=== PATIENT | female | born 1990 | race Caucasian/White ===

== ENCOUNTER 2024-06-30 07:46 | Outpatient (RCR) | payer OTHER, SELFPAY ==
[2024-06-30 09:30] VITALS: BP 118/79; PULSE 93; TEMP 36.6; O2SAT 97
[2024-06-30] MEDS: RHO(D) IMMUNE GLOBULIN 1,500 UNIT SYRINGE 1500 UNIT IM (10:23)
== END 2024-07-15 23:59 | disposition home or self-care (01) ==
LOC: INF 07:46
PROVIDERS: PCP Midwife; Visit Provider Midwife
DX: O26.893 Other specified pregnancy related conditions, third trimester (principal); Z67.91 Unspecified blood type, Rh negative; Z3A.00 Weeks of gestation of pregnancy not specified
CPT/HCPCS: 36415; 86850; 86900; 86901; 96372; J2791

== ENCOUNTER 2024-07-07 09:53 | Outpatient (OUT) | payer OTHER, SELFPAY ==
--- NOTE | 2024-07-07 09:57 | US_ITS ---
[address] [address] Patient Name: ALTON LILLY MRN: [id number] date: 1990 Sex: F Assigned Patient Location: US Current Patient Location: Accession/Order Number: [id number] Exam Date: 07/07/2024 10:20 Report Date: 07/07/2024 12:49 At the request of: MAULIK KUMAR Procedure: US OB growth EXAMINATION: US OB growth HISTORY: Related Condition COMPARISON: No relevant comparison available. FINDINGS: Heart Rate: 136.36 bpm Amniotic Fluid Volume: 12.9 cm, largest fluid pocket 3.8 cm Number: 1 Position: Cephalic presentation, longitudinal lie BIOMETRY: BPD: 7.54 cm; 30 weeks 2 days; 41.30 % HC: 27.75 cm; 30 weeks 2 days; 20.70 % AC: 25.71 cm; 29 weeks 6 days; 36.70 % FL: 5.50 cm; 29 weeks 0 days; 10.90 % EFW: 1434.76 g; 22.60 %, 3 lbs. 3 oz. FL/AC: 21.40 FL/BPD: 72.95 HC/AC: 1.08 GESTATIONAL AGE: Age by EDC: 30 weeks 1 day LD by EDC: 2024-09-14 Age by US: 29 weeks 6 days LD by US: 2024-09-16 US/US OB growth IMPRESSION: Normal interval growth Electronically authenticated by: MALIKA PLUMMER Date: 07/07/2024 12:49
== END 2024-07-07 09:54 | disposition home or self-care (01) ==
LOC: US 09:53
PROVIDERS: PCP Midwife; Visit Provider Midwife
DX: O26.93 Pregnancy related conditions, unspecified, third trimester (principal); Z3A.30 30 weeks gestation of pregnancy
CPT/HCPCS: 76816

== ENCOUNTER 2024-07-27 18:31 | Observation (INO) | payer OTHER, SELFPAY ==
--- OUTSIDE RECORDS SUMMARY | 2024-07-27 17:52 | XMS_ITS | CCD ---
Author Organization [facility] Care Team Providers Care Electronic Publisher Name Role Phone SONU GONZALEZ Unavailable Unavailable GONZALEZSONU K Unavailable Unavailable GONZALEZSONU K Unavailable Unavailable GONZALEZ SONU K Unavailable Unavailable FLORO, ARINA Primary Care Unavailable MISC, DOCTOR Attending Unavailable MISC, DOCTOR Consulting Unavailable MISC, DOCTOR Admitting Unavailable Unavailable Primary Care Provider Unavailabl e HOTELLINGRODO Admitting Unavailable MATT LIGHT Attending Unavailable Unavailable Primary Care Provider Unavailabl e FLORO, MAULIK L Referring Unavailable FLORO, MAULIK L Attending Unavailable FLORO, MAULIK L Referring Unavailable FLORO, MAULIK L Attending Unavailable FLORO, MAULIK L Attending Unavailable FLORO, MAULIK L Attending Unavailable FLORO, MAULIK L Referring Unavailable FLORO, MAULIK L Attending Unavailable FLORO, MAULIK L Referring Unavailable FLORO, MAULIK L Attending Unavailable FLORO, MAULIK L Attending Unavailable Allergies Allergy Classification Reported Allergen(s) Allergy Type Date of Onset Reaction(s) Facility (1 source) Seasonal allergy Propensity to adverse reactions to substance 12-07-2021 [facility] Medications Current Medications Medication Drug Class(es) Dates Sig (Normalized) Sig (Original) acetaminophen 500 mg oral tablet (2 sources) Start: 12-07-2021 acetaminophen (TYLENOL) tablet 1,000 mg Start: 12-07-2021 End: 12-07-2021 acetaminophen (TYLENOL) tabl et 650 mg calcium chloride 0.0014 meq/ml / potassium chloride 0.004 meq/ml / sodium chloride 0.103 meq/ml / sodium lactate 0.028 meq/ml injectable solution (4 sources) Start: 12-07-2021 End: 12-07-2021 lactated ringers infusion 1 ml carboprost 0.25 mg/ml injection (1 source) Prostaglandin Analog Start: 12-07-2021 carboprost (HEMABATE) injection 250 mcg 1 ml diphenhydrAMINE hydrochloride 50 mg/ml cartridge (1 source) Histamine-1 Receptor Antagonist Start: 12-07-2021 diphenhydrAMINE (BENADRYL) injection 25 mg docusate sodium 100 mg oral capsule (2 sources) Start: 12-08-2021 take 1 capsule by mouth twice daily docusate sodium (COLACE) 100 mg capsule Take 1 capsule by mouth 2 times daily 60 capsule 0 12/10/2021 Active docusate sodium 50 mg / sennosides, assisted 8.6 mg oral tablet (1 source) Start: 12-07-2021 sennosides-docusate sodium (SENOKOT-S) 8.6-50 MG tablet 1 tablet 0.4 ml enoxaparin sodium 100 mg/ml prefilled syringe (1 source) Low Molecular Weight Heparin Start: 12-08-2021 enoxaparin (LOVENOX) injection 40 mg famotidine 20 mg oral tablet (17 sources) Histamine-2 Receptor Antagonist Start: 07-21-2024 End: 07-21-2025 take 2 tablets by mouth in the morning famotidine (Pepcid) 20 MG tablet Indications: Stomach pain Take 2 tablets (40 mg) by mouth in the morning and 2 tablets (40 mg) before bedtime. 90 tablet 3 07/21/2024 07/21/2025 Active Start: 03-19-2024 End: 03-19-2025 take 1 tablet by mouth in the morning famotidine (Pepcid) 20 MG tablet Indications: Stomach pain Take 1 tablet (20 mg) by mouth in the morning and 1 tablet (20 mg) before bedtime. 90 tablet 3 03/19/2024 03/19/2025 Active End: 12-07-2021 take 1 tablet by mouth once daily as needed famotidine (PEPCID) 20 MG tablet Take 20 mg by mouth nightly as needed 0 12/07/2021 Discontinued ibuprofen 800 mg oral tablet (3 sources) Nonsteroidal Anti-inflammatory Drug Start: 12-09-2021 take 1 tablet by mouth every eight hours as needed for pain ibuprofen (ADVIL;MOTRIN) 800 MG tablet Take 1 tablet by mouth every 8 hours as needed for Pain With food 50 tablet 1 12/10/2021 Active Start: 03-28-2017 End: 12-07-2021 take 1 tablet by mouth every six hours as needed for pain ibuprofen (ADVIL;MOTRIN) 800 MG tablet Take 1 tablet by mouth every 6 hours as needed for Pain 40 tablet 3 03/28/2017 12/07/2021 Discontinued lanolin 1000 mg/ml topical cream (1 source) Start: 12-07-2021 lansinoh lanolin ointment 1 ml methylergonovine maleate 0.2 mg/ml injection (1 source) Ergot Derivative Start: 12-07-2021 methylergonovine (METHERGINE) injection 200 mcg miSOPROStol 0.1 mg oral tablet (1 source) Prostaglandin E1 Analog Start: 12-07-2021 miSOPROStol (CYTOTEC) tablet 800 mcg 1 ml nalbuphine hydrochloride 10 mg/ml injection (1 source) Opioid Agonist/Antagonist Start: 12-07-2021 nalbuphine (NUBAIN) injection 10 mg 1 ml naloxone hydrochloride 0.4 mg/ml injection (1 source) Opioid Antagonist Start: 12-07-2021 naloxone (NARCAN) injection 0.4 mg 2 ml ondansetron 2 mg/ml injection (1 source) Serotonin-3 Receptor Antagonist Start: 12-07-2021 ondansetron (ZOFRAN) injection 4 mg oxyCODONE (1 source) Opioid Agonist Start: 12-07-2021 oxyCODONE (ROXICODONE) immediate release tablet 5 mg MV & Min w/FA-DHA ( Gummies) 0.18-25 MG chewable tablet (17 sources) MV & Mi n w/FA-DHA ( Gummies) 0.18-25 MG chewable tablet Chew Active vitamin 27-1 MG tablet 1 tablet (1 source) Start: 12-08-2021 vitamin 27-1 MG tablet 1 tablet sertraline 25 mg oral tablet (3 sources) Serotonin Reuptake Inhibitor Start: 12-08-2021 End: 12-07-2021 take 1 tablet by mouth once daily sertraline (ZOLOFT) 25 MG tablet Take 1 tablet by mouth daily 30 tablet 0 12/10/2021 Active simethicone 80 mg chewable tablet (1 source) Start: 12-07-2021 simethicone (MYLICON) chewable tablet 80 mg 5 ml sodium chloride 9 mg/ml injection (3 sources) Start: 12-07-2021 0.9 % sodium chloride infusion Start: 12-07-2021 sodium chlorid e flush 0.9 % injection 5-40 mL Completed/Discontinued Medications Medication Drug Class(es) Dates Sig (Normalized) Sig (Original) aspirin 81 mg delayed release oral tablet (1 source) Platelet Aggregation Inhibitor, Nonsteroidal Anti-inflammatory Drug End: 12-07-2021 take 1 tablet by mouth at bedtime aspirin 81 MG EC tablet Take 81 mg by mouth at bedtime 0 12/07/2021 Discontinued cefOXitin (MEFOXIN) 2000 mg in dextrose 5% 50 mL (mini-bag) (1 source) Start: 12-07-2021 End: 12-07-2021 cefOXitin (MEFOXIN) 2000 mg in dextrose 5% 50 mL (mini-bag) citric acid 66.8 mg/ml / sodium citrate 100 mg/ml oral solution (1 source) Calculi Dissolution Agent, Anti-coagulant Start: 12-07-2021 End: 12-07-2021 citric acid-sodium citrate (BICITRA) solution 30 mL Start: 12-07-2021 End: 12-07-2021 citric acid-sodium citrate ( BICITRA) solution 30 mL 50 ml clindamycin 18 mg/ml injection (1 source) Lincosamide Antibacterial Start: 12-08-2021 End: 12-08-2021 clindamycin (CLEOCIN) 900 mg in dextrose 5 % 50 mL IVPB Ethinyl Estradiol / Ferrous fumarate / Norethindrone (1 source) Estrogen Start: 06-05-2017 End: 12-07-2021 take 1 tablet by mouth once daily Norethin Piero-Eth Estrad-FE 1-20 MG-MCG(24) TABS Indications: Dysmenorrhea , Pelvic pain in female Take 1 tablet by mouth daily 28 tablet 11 06/05/2017 12/07/2021 Discontinued famotidine (PEPCID) 20 mg in sodium chloride (PF) 10 mL injection (1 source) Start: 12-07-2021 End: 12-07-2021 famotidine (PEPCID) 20 mg in sodium chloride (PF) 10 mL injection ferrous sulfate 325 mg oral tablet (1 source) End: 12-07-2021 take 1 tablet by mouth once daily at breakfast, then take 1 tablet by mouth every other day ferrous sulfate (IRON 325) 325 (65 Fe) MG tablet Take 325 mg by mouth daily (with breakfast) Pt takes more every other day due to how it makes her feel 0 12/07/2021 Discontinued furosemide 20 mg oral tablet (1 source) Loop Diuretic Start: 12-10-2021 End: 12-10-2021 furosemide (LASIX) tablet 20 mg Start: 12-10-2021 End: 12-10-2021 furosemide (LASIX) tablet 20 mg gentamicin (GARAMYCIN) 410.4 mg in dextrose 5 % 250 mL IVPB (1 source) Start: 12-08-2021 End: 12-08-2021 gentamicin (GARAMYCIN) 410.4 mg in dextrose 5 % 250 mL IVPB 1 ml ketorolac tromethamine 30 mg/ml cartridge (1 source) Nonsteroidal Anti-inflammatory Drug, Cyclooxygenase Inhibitor Start: 12-07-2021 End: 12-09-2021 ketorolac (TORADOL) injection 30 mg 2 ml metoclopramide 5 mg/ml prefilled syringe (1 source) Dopamine-2 Receptor Antagonist Start: 12-07-2021 End: 12-07-2021 metoclopramide (REGLAN) injection 10 mg Start: 12-07-2021 End: 12-07-2021 metoclopramide (REGLAN) inje ction 10 mg oxytocin (PITOCIN) 30 units in 500 mL infusion (1 source) Start: 12-07-2021 End: 12-07-2021 oxytocin (PITOCIN) 30 units in 500 mL infusion 200 ml ropivacaine hydrochloride 2 mg/ml injection (1 source) Amide Local Anesthetic Start: 12-07-2021 End: 12-07-2021 12 mL/hr, Epidural, CONTINUOUS, Starting on Sun12/07/21 at 1430, Until Sun12/07/21 at 2334 Until delivery. Labor and Delivery 1 ml terbutaline sulfate 1 mg/ml injection (2 sources) Start: 12-07-2021 End: 12-07-2021 terbutaline (BRETHINE) injection 0.25 mg Start: 12-07-2021 End: 12-07-2021 terbutaline (BRETHINE) 1 MG/ ML injection Problems Active Problems Problem Classification Problem Date Documented Da te Episodic/Chronic Early or threatened labor (2 sources) Uterine contractions present; Translations: [False labor, unspecified] Onset: 12-07-2021 Resolved: 12-10-2021 Episodic distress and abnormal forces of labor (2 sources) Liveborn with labor distress; Translations: [Labor and delivery complicated by stress, unspecified] Onset: 12-07-2021 Resolved: 12-10-2021 Episodic Menstrual disorders (3 sources) Irregular menstruation, unspecified; Translations: [Dysmenorrhea, unspecified] Onset: 03-28-2017 03-28-2017 Chronic Other complications of ; puerperium affecting management of mother (2 sources) delivery - delivered; Translations: [Encounter for delivery without indication] Onset: 12-10-2021 Episodic Other nervous system disorders (2 sources) Choroid plexus cyst; 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 Other and delivery including normal (14 sources) Third trimester ; Translations: [Encounter for supervision of normal , unspecified, third trimester] Onset: 12-07-2021 Resolved: 12-10-2021 Episodic Unclassified (1 source) Unspecified dyspareunia; Translations: [Unspecified dyspareunia] Onset: 04-06-2017 Viral infection (1 source) COVID-19; Translations: [COVID-19] Onset: 06-28-2021 Past or Other Problems Problem Classification Problem Date Documented Date Episodic/Chronic Abdominal pain (3 sources) Right lower quadrant pain; Translations: [Stomach ache] Onset: 04-06-2017 03-19-2024 Episodic Other complications of (4 sources) Other viral diseases complicating , second trimester; Translations: [OTH VIRAL DZ COMP PREG SECOND TRI] Onset: 06-24-2021 Episodic Other complications of (2 sources) Finding related to ; Translations: [ related conditions, unspecified, second trimester] 03-19-2024 Episodic Residual codes; unclassified (1 source) 16 weeks gestation of ; Translations: [16 WEEKS GESTATION OF ] Onset: 06-28-2021 Episodic Unclassified (3 sources) Unsatisfactory cytologic smear of cervix; Translations: [Increased prolactin level] Onset: 04-10-2017 04-10-2017 Episodic Results Test Name Value Interpretation Reference Range Facility US for pregnancyon TITLE OF EXAM: OB Ultrasound: REASON FOR EXAM: Choroid plexus cyst. TECHNIQUE: Grayscale and color Doppler imaging is performed. Measurements: heart rate: 143 bpm KUNAL: 14.0 cm (9.7-22.2) BPD: 6.2 cm HC: 23.3 cm GA for sonogram: 25.3 wk (23.1-27.4) Cervix length: 4.7 cm LD: 09/14/2024 CLINICAL SUMMARY: A single intrauterine is noted in cephalic presentation. heart is observed with a heart rate of 143 bpm. Placenta is located fundally. Tech notes: anechoic area seen to the left of the Uterus 3.6 x 2.2 x 2.5 cm. Simple appearing cyst. A choroid plexus cyst is not demonstrated on this exam. *This report is generated using voice recognition reporting ([employer]). On occasion [employer] erroneously drops words from the report or replaces the spoken word with similar sounding words. Please call with any questions/concerns regarding this report.* Dictated and transcribed 06/05/24/dpd This report has been electronically signed and approved by the interpreting radiologist. IMAGING Yordan Duran MD - 06/06/2024 TITLE OF EXAM: OB Ultrasound: REASON FOR EXAM: Choroid plexus cyst. TECHNIQUE: Grayscale and color Doppler imaging is performed. Measurements: heart rate: 143 bpm KUNAL: 14.0 cm (9.7-22.2) BPD: 6.2 cm HC: 23.3 cm GA for sonogram: 25.3 wk (23.1-27.4) Cervix length: 4.7 cm LD: 09/14/2024 CLINICAL SUMMARY: A single intrauterine is noted in cephalic presentation. heart is observed with a heart rate of 143 bpm. Placenta is located fundally. Tech notes: anechoic area seen to the left of the Uterus 3.6 x 2.2 x 2.5 cm. Simple appearing cyst. A choroid plexus cyst is not demonstrated on this exam. *This report is generated using voice recognition reporting ([employer]). On occasion [employer] erroneously drops words from the report or replaces the spoken word with similar sounding words. Please call with any questions/concerns regarding this report.* Dictated and transcribed 06/05/24dpd This report has been electronically signed and approved by the interpreting radiologist. [facility] for pregnancyOrdered By: Yordan Duran on 06-06-2024 [facility] Work Phone: US OB LIMITED 1+ FETUSESon 1 08-05-2023 US OB LIMITED 1+ FETUSES TITLE OF EXAM: OB Ultrasound: REASON FOR EXAM: Choroid plexus cyst. TECHNIQUE: Grayscale and color Doppler imaging is performed. Measurements: heart rate: 143 bpm KUNAL: 14.0 cm (9.7-22.2) BPD: 6.2 cm HC: 23.3 cm GA for sonogram: 25.3 wk (23.1-27.4) Cervix length: 4.7 cm LD: 09/14/2024 CLINICAL SUMMARY: A single intrauterine is noted in cephalic presentation. heart is observed with a heart rate of 143 bpm. Placenta is located fundally. Tech notes: anechoic area seen to the left of the Uterus 3.6 x 2.2 x 2.5 cm. Simple appearing cyst. A choroid plexus cyst is not demonstrated on this exam. *This report is generated using voice recognition reporting ([employer]). On occasion [employer] erroneously drops words from the report or replaces the spoken word with similar sounding words. Please call with any questions/concerns regarding this report.* Dictated and transcribed 06/05/24/dpd This report has been electronically signed and approved by the interpreting radiologist. Normal Not Available US for pregnancyon Radiology Study observation (narrative) [facility] OB 14+ WEEKS ANATOMY SCAN on 04-23-2024 US OB 14+ WEEKS ANATOMY SCAN TITLE OF EXAM: OB Ultrasound: REASON FOR EXAM: Anatomy scan. Comparison: None TECHNIQUE: Grayscale and color Doppler imaging is performed. Measurements: heart rate: 145 bpm KUNAL: 14.5 cm (9.1-20.9) BPD: 4.6 cm HC: 17.0 cm AC: 14.8 cm FL: 3.1 cm GA for sonogram: 19.6 wk (18.2-21.0) Cervix length: 4.4 cm LD: 09/14/2024 Weight Estimate: Weight: 316 gm / 0 lbs, 11 oz (270-362 gm) Hadlock Normal: 296 gm (246-346 gm) Hadlock Wt%: 71% for 19.4 wks CLINICAL SUMMARY: A single intrauterine is noted. Four chamber heart is observed with a heart rate of 145 BPM. size is normal. growth: Consistent with normal growth. motion and organs seen: Normal intracranial anatomy is seen. body and limb movements are observed. spine, limbs, bladder, kidneys, and stomach are observed and within normal limits. Umbilical cord insertion and three vessel cord are identified and within normal limits. bowel, lungs, genitalia, four limbs are visualized and normal in appearance. Placenta is located anteriorly and fundal. Placenta is Grade 0/III Amniotic fluid volume is normal. IMPRESSION: 1. 6 mm bilateral chorioid plexus cysts. Typically resolve by 28 weeks GA. US 28-30 weeks GA recommended. Can be associated with chromosomal abnormalities. 2. Normal growth. Dictated and transcribed 04/24/24/dpd This report has been electronically signed and approved by the interpreting radiologist. Electronically Signed Isak Raman II, M.D. 2024-04-24 11:03:01 Normal Not Available US OB < 14 WEEKS EARLYon US OB < 14 WEEKS EARLY TITLE OF EXAM: US - US OB LESS THAN 14 WKS SINGLE REASON FOR EXAM: History of , bleeding on and off for four weeks TECHNIQUE: Grayscale, color, and M-mode mode Doppler evaluation of the pelvis COMPARISON: None. PATIENT : 01/29/2024 LMP: 12/09/2023 LD by LMP: 09/14/2024 GA by LMP: 7 weeks, 2 days FINDINGS: AUA: 7 weeks, 6 days LD by US: 09/10/2024 Uterus: 8.6 x 7.7 x 5.1 cm. There is a gestational sac and yolk sac within the uterine fundus. Live embryo within the gestational sac without evident abnormality. Mean sac diameter 2.8 cm. Yolk sac diameter 0.3 cm. Devers rump length is 1.5 cm. heart rate is 160 bpm. No appreciable subchorionic hemorrhage or other abnormality. Cervical length 2.9 cm. Heterogeneously echoic area of the endometrium adjacent to the gestational sac measures 2.2 x 2.4 x 1.6 cm with mild internal color flow. Right ovary: 3.2 x 1.9 x 1.8 cm. Normal low resistance arterial inflow on color and pulsed Doppler. Left ovary: 2.1 x 1.9 x 1.4 cm. Normal low resistance arterial inflow on color and pulsed Doppler. IMPRESSION: 1. Single live intrauterine gestation sonographically measuring 7 weeks, 6 days. No abnormality of the contents of the gestational sac. 2. Heterogeneously echoic region of the endometrium adjacent to the gestational sac, 2.4 cm. Nonspecific. Possible perigestational hemorrhage, possibly subchorionic. Recommend short-term follow-up ultrasound. DICTATED ON: 01/29/2024 2:26 PM This report has been electronically signed and approved by the interpreting radiologist. Electronically Signed Ricardo Deng M.D. 2024-01-29 14:32:49 Normal Not Available SURGICAL PATHOLOGY REPORTon 12-09-2021 Surgical Pathology Report -- Diagnosis -- PLACENTA, DELIVERED: -THIRD TRIMESTER PLACENTA WITH THREE-VESSEL CORD WITH SQUAMOUS METAPLASIA OF AMNION SURFACE. -MEMBRANES WITH MECONIUM LADEN MACROPHAGES. -PLACENTAL DISC WITH FOCAL MILD ACUTE INFLAMMATION OF CHORIONIC PLATE AND SCATTERED MECONIUM LADEN MACROPHAGES IN CHORIONIC PLATE. Mohamud Lucas M.D. Electronically Signed Out 12/09/2021 Clinical Information Operative Findings: PLACENTA Operation Performed: SECTION Source of Specimen A: PLACENTA Gross Description ALTON DAVIS, PLACENTA Placenta with attached membranes and umbilical cord. UMBILICAL CORD Length: 28.5 cm Diameter: 1.4 cm True knots: No Number of vessels: 3 Spiraling: Normal Insertion into surface: Paracentral MEMBRANES Color: Green-lynn and opacified with a marginal insertion Meconium staining: Yes SURFACE Color: Purple-lynn, with a normal array of surface vessels Subchorionic fibrin: Marginal and involves approximately 5% of the disc MATERNAL SURFACE Cotyledons: -All present and intact: Yes -Focal lesions: No Placental size: 19.0 x 18.0 x 3.0 cm Shape: Ovoid Weight: 458 grams Number of cassettes: 3cs tm Microscopic Description Umbilical cord: Squamous metaplasia of amnion surface. Membranes: Meconium laden macrophages present. Meconium staining: Yes. Infarcts: No Intervillous thrombi: No Subchorionic fibrin: Not significantly increased Villous maturation: Appropriate Nucleated erythrocytes in villous capillaries: Not increased Other: Few microcalcifications, focal mild acute inflammation of chorionic plate, and scattered meconium laden macrophages in chorionic plate. SURGICAL PATHOLOGY CONSULTATION Patient Name: ALTON DAVIS [facility] Rec: [id number] Path Number: [id number] [facility] [employer] [facility] ANATOMIC PATHOLOGY [address] [place] [id number] [facility] BIOPHYSICAL PROFILE WO NON STRESS TESTINGon 12-09-2021 US BIOPHYSICAL PROFILE WO NON STRESS TESTING EXAMINATION: BIOPHYSICAL PROFILE WITHOUT NON-STRESS TEST 12/07/2021 TECHNIQUE: ULTRASOUND BIOPHYSICAL PROFILE WITHOUT NON-STRESS TEST COMPARISON: None available HISTORY: ORDERING SYSTEM PROVIDED HISTORY: check fluid level, please check KUNAL TECHNOLOGIST PROVIDED HISTORY: check fluid level, please check KUNAL FINDINGS: BIOPHYSICAL PROFILE: Tone: 2/2 Gross Body: 2/2 Breathin/2 Qualitative Fluid: 2/2 Biophysical Profile Score: 8/8 OTHER FINDINGS: Fetus is currently in cephalic presentation. heart rate 145 beats per minute. Amniotic fluid index 7.1 with MVP 2.8 cm. IMPRESSION: Biophysical profile score 8/8. KUNAL 7.1. The findings were sent to the Radiology Results Communication Center at 10:15 am on 12/07/2021 to be communicated to a licensed caregiver. Interpreted by: Ajit Warner MD Signed by: Ajit Warner MD 12/09/21 Final result Normal [facility] Biophysical profile score 8/8. KUNAL 7.1. The findings were sent to the Radiology Results Communication Center at 10:15 am on 12/07/2021 to be communicated to a licensed caregiver. [facility] RIS CONSOLIDATED EXAMINATION: BIOPHYSICAL PROFILE WITHOUT NON-STRESS TEST 12/07/2021 TECHNIQUE: ULTRASOUND BIOPHYSICAL PROFILE WITHOUT NON-STRESS TEST COMPARISON: None available HISTORY: ORDERING SYSTEM PROVIDED HISTORY: check fluid level, please check KUNAL TECHNOLOGIST PROVIDED HISTORY: check fluid level, please check KUNAL FINDINGS: BIOPHYSICAL PROFILE: Tone: 2/2 Gross Body: 2/2 Breathin/2 Qualitative Fluid: 2/2 Biophysical Profile Score: 8/8 OTHER FINDINGS: Fetus is currently in cephalic presentation. heart rate 145 beats per minute. Amniotic fluid index 7.1 with MVP 2.8 cm. [facility] Ajit West MD - 12/09/2021 EXAMINATION: BIOPHYSICAL PROFILE WITHOUT NON-STRESS TEST 12/07/2021 TECHNIQUE: ULTRASOUND BIOPHYSICAL PROFILE WITHOUT NON-STRESS TEST COMPARISON: None available HISTORY: ORDERING SYSTEM PROVIDED HISTORY: check fluid level, please check KUNAL TECHNOLOGIST PROVIDED HISTORY: check fluid level, please check KUNAL FINDINGS: BIOPHYSICAL PROFILE: Tone: 2/2 Gross Body: 2/2 Breathin/2 Qualitative Fluid: 2/2 Biophysical Profile Score: 8/8 OTHER FINDINGS: Fetus is currently in cephalic presentation. heart rate 145 beats per minute. Amniotic fluid index 7.1 with MVP 2.8 cm. IMPRESSION: Biophysical profile score 8/8. KUNAL 7.1. The findings were sent to the Radiology Results Communication Center at 10:15 am on 12/07/2021 to be communicated to a licensed caregiver. [employer] [facility] [employer] Phone: BIOPHYSICAL PROFILE WO NON STRESS TESTINGOrdered By: Ajit Warner on 12-09-2021 [facility]: CBCon 12-08-2021 Erythrocyte distribution width (RBC) [Ratio] 14.3 % Normal 11.8-14.4 [facility] Comment on above: Performed By: #### C BC #### [facility] [address] [place] [address] [place] [address] Facilities Flight Check Pilot: Mohamud Lucas MD Hematocrit (Bld) [Volume fraction] 26.3 % Low 36.3-47.1 [facility] Comment on above: Performed By: #### C BC #### [facility] [address] [place] [address] Facilities Flight Check Pilot: Mohamud Lucas MD Hemoglobin (Bld) [Mass/Vol] 8.5 g/dL Low 11.9-15.1 [facility] Comment on above: Performed By: #### C BC #### [facility] [address] [place] [address] Facilities Flight Check Pilot: Mohamud Lucas MD MCH (RBC) [Entitic mass] 27.0 pg Normal 25.2-33.5 [facility] Comment on above: Performed By: #### C BC #### [facility] [address] [place] [address] Facilities Flight Check Pilot: Mohamud Lucas MD MCHC (RBC) [Mass/Vol] 32.3 g/dL Normal 28.4-34.8 [facility] Comment on above: Performed By: #### C BC #### [address] [place] [address] Facilities Flight Check Pilot: Mohamud Lucas MD MCV (RBC) [Entitic vol] 83.5 fL Normal 82.6-102.9 [facility] Comment on above: Performed By: #### C BC #### [address] [place], [place] [id number] Facilities Flight Check Pilot: Mohamud Lucas MD NRBC Automated 0.0 per 100 WBC Normal 0.0 [facility] Comment on above: Performed By: #### C BC #### [address] [place], [place] [id number] Facilities Flight Check Pilot: Mohamud Lucas MD Platelet mean volume (Bld) [Entitic vol] 11.1 fL Normal 8.1-13.5 [facility] Comment on above: Performed By: #### C BC #### [facility] [address] [place] [address] Dr[place], [place] [id number] Facilities Flight Check Pilot: Mohamud Lucas MD Platelets (Bld) [#/Vol] 219 10*3/uL Normal 138-453 [facility] Comment on above: Performed By: #### C BC #### [address] [place] [address] Facilities Flight Check Pilot: Mohamud Lucas MD RBC (Bld) [#/Vol] 3.15 10*6/uL Low 3.95-5.11 [facility] Comment on above: Performed By: #### C BC #### [facility] [address] [place] [address] Facilities Flight Check Pilot: Mohamud Lucas MD WBC (Bld) [#/Vol] 20.6 10*3/uL High 3.5-11.3 [facility] Comment on above: Performed By: #### C BC #### [facility] [address] [place] [address] Facilities Flight Check Pilot: Mohamud Lucas MD Hematocrit (Bld) [Volume fraction] 26.3 % Low 36.3 - 47.1 % [facility] Hemoglobin.gastroin testinal spec 1 Ql (Stl) 8.5 g/dL Low 11.9 - 15.1 g/dL [facility] Interpretation and review of laboratory results Abnormal [facility] MCH (RBC) [Entitic mass] 27.0 pg 25.2 - 33.5 pg [facility] MCHC (RBC) [Mass/Vol] 32.3 g/dL 28.4 - 34.8 g/dL [facility] MCV (RBC) [Entitic vol] 83.5 fL 82.6 - 102.9 fL [facility] NRBC Automated 0.0 0.0 per 100 WBC [facility] Platelet distribution width (Bld) [Ratio] 14.3 % 11.8 - 14.4 % [facility] Platelet mean volume (Bld) [Entitic vol] 11.1 fL 8.1 - 13.5 fL [facility] Platelets (Bld) [#/Vol] 219 10*3/uL [facility] RBC (Bld) [#/Vol] 3.15 10*6/uL Low 3.95 - 5.1 1 m/uL [facility] WBC (Bld) [#/Vol] 20.6 10*3/uL High [facility] RhIg Workup (RhoGam)on 12-08 RhIg Workup (RhoGam) Blood Component Type MANUFACTURED PRODUCT Units Ordered 1 ABO/Rh(D) A NEGATIVE Antibody Screen NEGATIVE History Check NO PREVIOUS HISTORY Rhig Eligibility Patient Is A Candidate For Injection Eugenie NEGATIVE Du Antigen NOT TESTED Unit Number [id number] Blood Component Type RHIG Unit Division 00 Status of Unit REL FROM ALLOC Transfusion Status OK TO TRANSFUSE Normal [facility] Comment on above: Performed By: #### R HIGW #### [facility] [address] [place] [address] Facilities Flight Check Pilot: Mohamud Lucas MD CBC auto differentialon 11-14 Absolute Eos # 0.[address] [facility] Absolute Immature Granulocyte 0.08 [facility] Absolute Lymph # 1.[address] [facility] Absolute Greenup # 0.88 [facility] Basophils (Bld) [#/Vol] 0.04 10*3/uL [facility] Basophils/100 WBC (Bld) 0 % 0 - 2 % [facility] Eosinophils/100 WBC (Bld) 1 % 1 - 4 % [facility] Hematocrit (Bld) [Volume fraction] 32.8 % Low 36.3 - 47.1 % [facility] Hemoglobin.gastroin testinal spec 1 Ql (Stl) 10.3 g/dL Low 11.9 - 15.1 g/dL [facility] Immature granulocytes/100 WBC (Bld) 1 % High 0 [facility] Interpretation and review of laboratory results Abnormal [facility] Lymphocytes/100 WBC (Bld) 15 % Low 24 - 43 % [facility] MCH (RBC) [Entitic mass] 26.5 pg 25.2 - 33.5 pg [facility] MCHC (RBC) [Mass/Vol] 31.4 g/dL 28.4 - 34.8 g/dL [facility] MCV (RBC) [Entitic vol] 84.5 fL 82.6 - 102.9 fL [facility] Monocytes/100 WBC (Bld) 7 % 3 - 12 % [facility] NRBC Automated 0.0 0.0 per 100 WBC [facility] Platelet distribution width (Bld) [Ratio] 14.2 % 11.8 - 14.4 % [facility] Platelet mean volume (Bld) [Entitic vol] 11.9 fL 8.1 - 13.5 fL [facility] Platelets (Bld) [#/Vol] 259 10*3/uL [facility] RBC (Bld) [#/Vol] 3.88 10*6/uL Low 3.95 - 5.1 1 m/uL [facility] Segmented neutrophils/100 WBC (Bld) 76 % High 36 - 65 % [facility] Segs Absolute 9.01 High [facility] WBC (Bld) [#/Vol] 11.9 10*3/uL High [facility] CBC with Diffon 12-07-2021 Abs. Basophil 0.04 k/uL Normal 0.00-0.20 [facility] Comment on above: Performed By: #### C DP #### [facility] [address] [place] [address] Dr. [place], [place] [phone] Facilities Flight Check Pilot: Mohamud Lucas MD Abs.Imm.Granulocyte 0.08 k/uL Normal 0.00-0.30 [facility] Comment on above: Performed By: #### C DP #### [facility] [address] [place] [address] [place] [address] Facilities Flight Check Pilot: Mohamud Lucas MD Abs.Neutrophil (Seg) 9.01 k/uL High 1.50-8.10 [facility] Comment on above: Performed By: #### C DP #### [facility] [address] [place] [address] Facilities Flight Check Pilot: Mohamud Lucas MD Basophils/100 WBC (Bld) 0 % Normal 0-2 [facility] Comment on above: Performed By: #### C DP #### [facility] [address] [place] [address] Facilities Flight Check Pilot: Mohamud Lucas MD Eosinophils (Bld) [#/Vol] 0.08 10*3/uL Normal 0.00-0.44 [facility] Comment on above: Performed By: #### C DP #### [facility] [address] [place] [address] Dr[place], [place] [phone] Facilities Flight Check Pilot: Mohamud Lucas MD Eosinophils/100 WBC (Bld) 1 % Normal 1-4 [facility] Comment on above: Performed By: #### C DP #### [facility] [address] [place] [address] Facilities Flight Check Pilot: Mohamud Lucas MD Erythrocyte distribution width (RBC) [Ratio] 14.2 % Normal 11.8-14.4 [facility] Comment on above: Performed By: #### C DP #### [address] [place] [id number] Facilities Flight Check Pilot: Mohamud Lucas MD Hematocrit (Bld) [Volume fraction] 32.8 % Low 36.3-47.1 [facility] Comment on above: Performed By: #### C DP #### [address] [place], [place] [address] Facilities Flight Check Pilot: Mohamud Lucas MD Hemoglobin (Bld) [Mass/Vol] 10.3 g/dL Low 11.9-15.1 [facility] Comment on above: Performed By: #### C DP #### [address] [place], [facility]83 Facilities Flight Check Pilot: Mohamud Lucas MD Immature granulocytes/100 WBC (Bld) 1 % High 0 [facility] Comment on above: Performed By: #### C DP #### [address] [place] [id number] Facilities Flight Check Pilot: Mohamud Lucas MD Lymphocytes (Bld) [#/Vol] 1.81 10*3/uL Normal 1.10-3.70 [facility] Comment on above: Performed By: #### C DP #### [facility] [address] [place], [place] [phone] Facilities Flight Check Pilot: Mohamud Lucas MD Lymphocytes/100 WBC (Bld) 15 % Low 24-43 [facility] Comment on above: Performed By: #### C DP #### [facility] [address] [place] [facility]83 Facilities Flight Check Pilot: Mohamud Lucas MD MCH (RBC) [Entitic mass] 26.5 pg Normal 25.2-33.5 [facility] Comment on above: Performed By: #### C DP #### [facility] [address] [place], [facility]83 Facilities Flight Check Pilot: Mohamud Lucas MD MCHC (RBC) [Mass/Vol] 31.4 g/dL Normal 28.4-34.8 [facility] Comment on above: Performed By: #### C DP #### [address] [place], [facility]83 Facilities Flight Check Pilot: Mohamud Lucas MD MCV (RBC) [Entitic vol] 84.5 fL Normal 82.6-102.9 [facility] Comment on above: Performed By: #### C DP #### [address] [place], [facility]83 Facilities Flight Check Pilot: Mohamud Lucas MD Monocytes (Bld) [#/Vol] 0.88 10*3/uL Normal 0.10-1.20 [facility] Comment on above: Performed By: #### C DP #### [facility] [address] [place], [facility]83 Facilities Flight Check Pilot: Mohamud Lucas MD Monocytes/100 WBC (Bld) 7 % Normal 3-12 [facility] Comment on above: Performed By: #### C DP #### [facility] [address] [place], [facility]83 Facilities Flight Check Pilot: Mohamud Lucas MD Neutrophil (Seg) 76 % High 36-65 [facility] Comment on above: Performed By: #### C DP #### [facility] [address] [place], [place] [phone] Facilities Flight Check Pilot: Mohamud Lucas MD NRBC Automated 0.0 per 100 WBC Normal 0.0 [facility] Comment on above: Performed By: #### C DP #### [facility] [address] [place], [place] [phone] Facilities Flight Check Pilot: Mohamud Lucas MD Platelet mean volume (Bld) [Entitic vol] 11.9 fL Normal 8.1-13.5 [facility] Comment on above: Performed By: #### C DP #### [facility] [address] [place], [place] 1437383 Facilities Flight Check Pilot: Mohamud Lucas MD Platelets (Bld) [#/Vol] 259 10*3/uL Normal 138-453 [facility] Comment on above: Performed By: #### C DP #### [address] [place], [place] [phone] Facilities Flight Check Pilot: Mohamud Lucas MD RBC (Bld) [#/Vol] 3.88 10*6/uL Low 3.95-5.11 [facility] Comment on above: Performed By: #### C DP #### [facility] [address] [place], [place] [phone] Facilities Flight Check Pilot: Mohamud Lucas MD WBC (Bld) [#/Vol] 11.9 10*3/uL High 3.5-11.3 [facility] Comment on above: Performed By: #### C DP #### [facility] [address] [place], [place] [phone] Facilities Flight Check Pilot: Mohamud Lucas MD DRUG SCREEN MULTI URINEon Amphetamine Screen, Ur Negative NEGATIVE [facility] Barbiturate Screen, Ur Negative NEGATIVE [facility] Benzodiazepine Screen, Urine Negative NEGATIVE [facility] Buprenorphine Urine Negative NEGATIVE [facility] Cannabinoid Scrn, Ur Negative NEGATIVE [facility] Cocaine Metabolite, Urine Negative NEGATIVE [facility] Methadone Screen, Urine Negative NEGATIVE [facility] Methamphetamine, Urine Negative NEGATIVE [facility] Opiates, Urine Negative NEGATIVE [facility] Oxycodone Screen, Ur Negative NEGATIVE [facility] Phencyclidine, Urine Negative NEGATIVE [facility] Propoxyphene, Urine Negative NEGATIVE [facility] Tricyclic Antidepressants, Urine Negative NEGATIVE [facility] Comment on above: Drug screen results are to be used for medical purposes only. All positive results are unconfirmed. Testing for employment or legal uses should be sent to a reference laboratory for confirmation. [facility] Drug Scr, Abuse, Uron 2021 Amphetamine(s),Ur Negative Normal NEG [facility] Comment on above: Performed By: #### D AU #### [facility] [address] [place] [address] [place] [address] Facilities Flight Check Pilot: Mohamud Lucas MD Barbiturate(s),Ur Negative Normal NEG [facility] Comment on above: Performed By: #### D AU #### [facility] [address] [place] [address] [place] [address] Facilities Flight Check Pilot: Mohamud Lucas MD Benzodiazepine(s) Negative Normal NEG [facility] Comment on above: Performed By: #### D AU #### [facility] [address] [place] [address] Facilities Flight Check Pilot: Mohamud Lucas MD Buprenorphrine, Ur Negative Normal NEG [facility] Comment on above: Performed By: #### D AU #### [facility] [address] [place] [address] [place] [address] Facilities Flight Check Pilot: Mohamud Lucas MD Cannabinoid(s),Ur Negative Normal NEG [facility] Comment on above: Performed By: #### D AU #### [facility] [address] [place] [address] Facilities Flight Check Pilot: Mohamud Lucas MD Cocaine Metabolite Negative Normal [facility] Comment on above: Performed By: #### D AU #### [facility] [address] [place] [address] Facilities Flight Check Pilot: Mohamud Lucas MD Methadone Ql (U) Negative Normal NEG [facility] Comment on above: Performed By: #### D AU #### [facility] [address] [place] [address] Facilities Flight Check Pilot: Mohamud Lucas MD Methamphetamine, Ur Negative Normal NEG [facility] Comment on above: Performed By: #### D AU #### [facility] [address] [place], [place] [phone] Facilities Flight Check Pilot: Mohamud Lucas MD Opiate(s), Ur Negative Normal [facility] Comment on above: Performed By: #### D AU #### [facility] [address] [place] [address] Facilities Flight Check Pilot: Mohamud Lucas MD Oxycodone, Urine Negative Normal [facility] Comment on above: Performed By: #### D AU #### [facility] [address] [place] [address] Facilities Flight Check Pilot: Mohamud Lucas MD Phencyclidine, Ur Negative Normal NEG [facility] Comment on above: Performed By: #### D AU #### [facility] [address] [place], [place] [phone] Facilities Flight Check Pilot: Mohamud Lucas MD Propoxyphene,Urine Negative Normal NEG [facility] Comment on above: Performed By: #### D AU #### [facility] [address] [place], [place] [phone] Facilities Flight Check Pilot: Mohamud Lucas MD Tricyclic antidepressants Screen Ql (U) Negative Normal NEG [facility] Comment on above: Result Comment: Drug screen results are to be used for medical purposes only. All positive results are unconfirmed. Testing for employment or legal uses should be sent to a reference laboratory for confirmation. Performed By: #### D AU #### [facility] [address] [place] [address] [place] [address] Facilities Flight Check Pilot: Mohamud Lucas MD Microscopic Urinalysison - [facility] Bacteria, UA 2+ Abnormal None [facility] Epithelial Cells UA 2 TO [address] [facility] Interpretation and review of laboratory results Abnormal [facility] RBC, UA 0 TO 2 [facility] WBC, UA 2 TO 5 [facility] Yeast, UA PRESENCE NOTED Abnormal None [facility] OPERATIVE REPORTon OPERATIVE REPORT [address] [id number] OPERATIVE REPORT PATIENT NAME: ALTON DAVIS : 1990 MED REC NO: [id number] ROOM: 0208 ACCOUNT NO: [id number] ADMIT DATE: 12/07/2021 PROVIDER: Matt Light MD DATE OF PROCEDURE: 12/07/2021 PREOPERATIVE DIAGNOSES: at term, prolonged rupture of membranes, mild tachycardia, low-grade maternal fever, failure to progress, posterior presentation, and thick meconium fluid. POSTOPERATIVE DIAGNOSES: at term, prolonged rupture of membranes, mild tachycardia, low-grade maternal fever, failure to progress, posterior presentation, and thick meconium fluid. SURGICAL PROCEDURES: Primary section, low transverse uterine segment. ANESTHESIA: Epidural. SUPERINTENDENT PIER: Maulik Del Toro. ESTIMATED BLOOD LOSS: 600 mL. COMPLICATIONS OF THE PROCEDURE: None. FINDINGS: A viable vigorous female in direct occiput posterior presentation with thick meconium-stained fluid. The consent was reviewed with the patient for these findings as well as a decel that was noted spontaneously. DESCRIPTION OF PROCEDURE: The patient was taken to the operating room. She did have Beckwith catheter and epidural placed earlier. Epidural was bolused. Abdomen was sterilely prepped and draped and pneumatic stockings were placed on feet prior to this. Scalpel was used to make a transverse incision on the lower abdomen. Bovie cautery was used to divide the subcutaneous tissue coagulating small bleeding vessels encountered and then to open the fascia and then to mobilize the fascia away from the underlying rectus muscles both superiorly and inferiorly. The rectus muscles were bluntly in the midline. Peritoneum bluntly entered and with lateral traction on the rectus muscles, this allowed good visualization of the lower uterine segment. Uterine peritoneum was elevated and incised and the bladder was sharply and bluntly mobilized inferiorly. Scalpel was used to make a transverse incision on the lower uterine segment. This was extended in a semilunar fashion with bath mix operator's fingers. head was elevated and turned. Enough fundal pressure was used to deliver the head and nares and oropharynx were vigorously suctioned of meconium fluid. Then the shoulders were delivered with some fundal pressure and infant was then readily delivered. Cord was clamped and cut. Infant handed off to nursing attending the delivery. Cord blood specimen was obtained. As baby was vigorous and crying already, a cord gas was not obtained. Placenta was manually extracted from the uterus and decided to send placenta for pathology. Uterus was brought out of the incision and held in place with wet packs. The uterus was closed with #1 chromic in a running interlocking fashion and then a running imbricating interlocking fashion. A few [id number] sutures were placed along the central inferior portion of the incision, which gave excellent hemostasis. The posterior cul-de-sac and paracolic gutters were thoroughly visualized and well cleaned of fluid as well. The fascia was closed with 0 PDS in a running non-interlocking fashion. The subcutaneous tissue was well irrigated and Chikis Del Toro did close the subcutaneous and then the skin in a subcuticular fashion. All sponge, needle, and instrument counts were noted to be correct. The patient will get a block postoperatively and taken to recovery room in good condition. She will receive some additional antibiotics for symptoms above that were mentioned. MATT LIGHT MD [id number] Doc#: [id number] CC: Maulik Del Toro Normal [facility] Surgical Pathologyon 022 Surgical Pathology (NOTE) -- Diagnosis -- PLACENTA, DELIVERED: -THIRD TRIMESTER PLACENTA WITH THREE-VESSEL CORD WITH SQUAMOUS METAPLASIA OF AMNION SURFACE. -MEMBRANES WITH MECONIUM LADEN MACROPHAGES. -PLACENTAL DISC WITH FOCAL MILD ACUTE INFLAMMATION OF CHORIONIC PLATE AND SCATTERED MECONIUM LADEN MACROPHAGES IN CHORIONIC PLATE. Mohamud Lucas M.D. Electronically Signed Out 12/09/2021 Clinical Information Operative Findings: PLACENTA Operation Performed: SECTION Source of Specimen A: PLACENTA Gross Description ALTON DAVIS, PLACENTA Placenta with attached membranes and umbilical cord. UMBILICAL CORD Length: 28.5 cm Diameter: 1.4 cm True knots: No Number of vessels: 3 Spiraling: Normal Insertion into surface: Paracentral MEMBRANES Color: Green-lynn and opacified with a marginal insertion Meconium staining: Yes SURFACE Color: Purple-lynn, with a normal array of surface vessels Subchorionic fibrin: Marginal and involves approximately 5% of the disc MATERNAL SURFACE Cotyledons: -All present and intact: Yes -Focal lesions: No Placental size: 19.0 x 18.0 x 3.0 cm Shape: Ovoid Weight: 458 grams Number of cassettes: 3cs tm Microscopic Description Umbilical cord: Squamous metaplasia of amnion surface. Membranes: Meconium laden macrophages present. Meconium staining: Yes. Infarcts: No Intervillous thrombi: No Subchorionic fibrin: Not significantly increased Villous maturation: Appropriate Nucleated erythrocytes in villous capillaries: Not increased Other: Few microcalcifications, focal mild acute inflammation of chorionic plate, and scattered meconium laden macrophages in chorionic plate. SURGICAL PATHOLOGY CONSULTATION Patient Name: ALTON DAVIS [facility] Rec: [id number] Path Number: [id number] [facility] ANATOMIC PATHOLOGY [address] [place] [id number] [facility] Comment on above: Performed By: #### P PPVS #### [employer] [address] [place] [id number] Facilities Flight Check Pilot: Dhaval Rao MD BIOPHYSICAL PROFILE WO NON STRESS TESTINGon 05-25-2022 Radiology Study observation (narrative) [facility] Work Phone: Urinalysison 12-07-2021 Bilirubin Urine Negative NEGATIVE [facility] Color, UA Yellow Yellow [facility] Glucose, Ur Negative NEGATIVE [facility] Interpretation and review of laboratory results Abnormal [facility] Ketones Ql (U) Negative NEGATIVE [facility] Leukocyte esterase Test strip Ql (U) Negative NEGATIVE [facility] Nitrite, Urine Negative NEGATIVE [facility] pH, UA 6.0 [facility] Protein, UA Negative NEGATIVE [facility] Specific [place], UA >1.030 High [facility] Turbidity UA Clear Clear [facility] Urine Hgb 1+ Abnormal NEGATIVE [facility] Urobilinogen, Urine Normal Normal [facility] Urinalysis, Routineon 2021 Bilirubin, SemiQt,Ur Negative Normal NEG [facility] Comment on above: Performed By: #### U MICAO, UA #### [facility] [address] [place], [place] [phone] Facilities Flight Check Pilot: Mohamud Lucas MD Blood, Urine 1+ Abnormal NEG [facility] Comment on above: Performed By: #### U MICAO, UA #### [facility] [address] [place], [place] [phone] Facilities Flight Check Pilot: Mohamud Lucas MD Clarity (U) Clear Normal CLEAR [facility] Comment on above: Performed By: #### U MICAO, UA #### [facility] [address] [place], [place] [phone] Facilities Flight Check Pilot: Mohamud Lucas MD Color (U) Yellow Normal YEL [facility] Comment on above: Performed By: #### U MICAO, UA #### [facility] [address] [place] [address] Facilities Flight Check Pilot: Mohamud Lucas MD Glucose Ql (U) Negative Normal NEG [facility] Comment on above: Performed By: #### U MICAO, UA #### [facility] [address] [place], [place] [phone] Facilities Flight Check Pilot: Mohamud Lucas MD Ketones Ql (U) Negative Normal NEG [facility] Comment on above: Performed By: #### U MICAO, UA #### [facility] [address] [place] [address] Dr. [place], [place] [phone] Facilities Flight Check Pilot: Mohamud Lucas MD Leukocyte esterase Test strip Ql (U) Negative Normal NEG [facility] Comment on above: Performed By: #### U MICAO, UA #### [address] [place], [place] 4943083 Facilities Flight Check Pilot: Mohamud Lucas MD Nitrite,Ur Negative Normal NEG [facility] Comment on above: Performed By: #### U MICAO, UA #### [facility] [address] [place] [address] Dr[place], [place] [phone] Facilities Flight Check Pilot: Mohamud Lucas MD PH,Ur 6.0 Normal 5.0-9.0 [facility] Comment on above: Performed By: #### U MICAO, UA #### [address] [place], [place] [id number] Facilities Flight Check Pilot: Mohamud Lucas MD Protein Ql (U) Negative Normal NEG [facility] in Hospital Comment on above: Performed By: #### U MICAO, UA #### [facility] [address] [place] [address] [place]. [place], [place] [id number] Facilities Flight Check Pilot: Mohamud Lucas MD Spec. [place],Ur >1.030 High 1.010-1.020 [facility] Comment on above: Performed By: #### U MICAO, UA #### [facility] [address] [place] [address] [place] [address] Facilities Flight Check Pilot: Mohamud Lucas MD Urobilinogen,Ur Normal Normal NORM [facility] Comment on above: Performed By: #### U SHAHNAZO, UA #### [facility] [address] [place] [address] Facilities Flight Check Pilot: Mohamud Lucas MD Urinalysis,Microon 2 ----- Normal [facility] Comment on above: Performed By: #### U SHAHNAZO, UA #### [facility] [address] [place], [place] 7293783 Facilities Flight Check Pilot: Mohamud Lucas MD Bacteria 2+ Abnormal NONE [facility] Comment on above: Performed By: #### U SHAHNAZO, UA #### [address] [place] [address] Facilities Flight Check Pilot: Mohamud Lucas MD Epithelial cells LM Ql (Urine sed) 2 TO 5 Normal 0-25 [facility] Comment on above: Performed By: #### U SHAHNAZO, UA #### [facility] [address] [place] [address] Dr. [place], [place] [id number] Facilities Flight Check Pilot: Mohamud Lucas MD Urine RBC's 0 TO 2 Normal 0-2 [facility] Comment on above: Performed By: #### U SHAHNAZO, UA #### [address] [place], [place] 7222283 Facilities Flight Check Pilot: Mohamud Lucas MD Urine WBC's 2 TO 5 Normal 0-5 [facility] Comment on above: Performed By: #### U SHAHNAZO, UA #### [facility] [address] [place], [place] 7397583 Facilities Flight Check Pilot: Mohamud Lucas MD Yeast PRESENCE NOTED Abnormal NONE [facility] Comment on above: Performed By: #### U SHAHNAZO, UA #### [facility] [address] [place] [address] Facilities Flight Check Pilot: Mohamud Lucas MD US OB Growthon 11-29-2021 US OB Growth FINDINGS: Comparison made with prior examinations of October 03, 2021 delivery at that time was December 10, 2001 and September 20, 2021 and delivery at that time was December 04, 2021. A single, live intrauterine is present with normal cardiac rate of 145 beats per minute. Normal activity and amniotic fluid volume. Amniotic fluid index is 11.0 cm. Morphology is grossly normal. No intracranial cysts. The cervix is long and closed, 5.1 cm. The placenta is Fundal Grade 3, not associated with the cervical os. The current sonographic age is weeks and days, based on the following measurements: BPD 9.4 cm (38 weeks,1 days) Head Circumference 32.6cm ( 36weeks, 6 days) Abdominal Circumference 33.9cm (37 weeks, 5 days) Femur Length 7.5 cm (38 weeks, 2 days) Presentation Cephalic Placenta Fundal Grade 3 Weight by percentile 45.2% These measurements result in an estimated date of delivery of December 15, 2021. The current estimated weight is 3325 grams +/- grams ( 7 pound, 5 ounces). IMPRESSION: Single, live intrauterine , current sonographic age of 37 weeks and 5 days, with an estimated date of delivery of December 15, 2021. Report reported and signed by Param Garnett on 11/30/2021 0718 Normal [facility] [employer] GBS, External Resulton 11-10 GBS, External Result Positive [facility] [employer] Phone: [facility] [employer] Phone: Q - STREPTOCOCCUS,GROUP B CU LTUREon 11-10-2021 STREPTOCOCCUS, GROUP B CULTURE SEE NOTE Abnormal [facility] [employer] Comment on above: Order Comment: [facility] performed at: [facility], [address] [place] [address], [address] [place] [address], [place], [address], Patient Registrar: David Whalen MD [facility] Collection Date/Time: [id number] [facility] Results Received Date/Time: [id number] [facility] Reported Date/Time: [id number] Result Comment: STRE PTOCOCCUS, GROUP B CULTURE Micro Number: [id number] Test Status: Final Specimen Source: Vaginal/anorectal Specimen Quality: Adequate Result: Group B Streptococcus isolated Beta-hemolytic streptococci are predictably susceptible to Penicillin and other beta-lactams. Susceptibility testing not routinely performed. Please contact the laboratory within 3 days if susceptibility testing is desired. Note per CDC guidelines optimal recovery is achieved by swabbing both the lower vagina and rectum (through the anal sphincter). Performed By: #### 5 [id number] #### [facility] [address] [place] [address] US OB Growthon 10-03-2021 US OB Growth FINDINGS: Comparison made with prior ultrasound examination of July 19, 2021. A single, live intrauterine is present with normal cardiac rate of 149 beats per minute. Normal activity and amniotic fluid volume. Amniotic fluid index is 17 cm. Morphology is grossly normal. The cervix is long and closed, 3.7 cm. The placenta is anterior, not associated with the cervical os. The current sonographic age is 30 weeks and 2 days, based on the following measurements: BPD 7.3 cm (29 weeks, 1 day) Head Circumference 27.8 cm (30 weeks, 3 days) Abdominal Circumference 26.4 cm (30 weeks, 4 days) Femur Length 6.0 cm (31 weeks, 1 day) Presentation Breech Placenta Anterior fundal Grade I Weight (g) by Wepegghhkr38.5 % * These measurements result in an estimated date of delivery of December 10, 2021. The current estimated weight is 1599 grams (3 pounds, 8 ounces). IMPRESSION: 1. Single, live intrauterine , current sonographic age of 30 weeks and 2 days, with an estimated date of delivery of December 10, 2021 (prior LD December 04, 2021) 2. KUNAL 17 cm, upper limits of normal. 2. Current estimated weight 1599 grams (3 pounds, 8 ounces) * Estimated Weight (g) by Percentile is based upon an accurate estimated age based on last menstrual period. Report reported and signed by Param Garnett on 10/04/2021 0920 Normal [facility] [employer] No Panel Informationon 09-22 ABO, External Result Negative [employer] Work Phone: [employer] Factor, External Result Negative [employer] Work Phone: [employer] Work Phone: [employer], External Resultson 0 09-21-2021 Rhogam, External Result given [facility] [employer] Phone: [facility] [employer] Phone: Complete Blood Counton 09-20 Erythrocyte distribution width (RBC) [Ratio] 12.5 % Normal 11.0-15.0 [facility] [employer] Comment on above: Performed By: #### G GLU, CBC #### [facility] [address] [place], [place] [id number] Hematocrit (Bld) [Volume fraction] 32.7 % Low 35.0-47.0 [facility] [employer] Comment on above: Performed By: #### G GLU, CBC #### [facility] [address] [place], [place] [id number] Hemoglobin (Bld) [Mass/Vol] 10.7 g/dL Low 11.6-15.5 [facility] [employer] Comment on above: Performed By: #### G GLU, CBC #### [facility] [address] [place], [place] [id number] MCH (RBC) [Entitic mass] 30.1 pg Normal 27.0-33.0 [facility] [employer] Comment on above: Performed By: #### G GLU, CBC #### [facility] [address] [place], [place] [id number] MCHC (RBC) [Mass/Vol] 32.7 g/dL Normal 32.0-36.0 [facility] [employer] Comment on above: Performed By: #### G GLU, CBC #### [facility] [address] [place], [place] [id number] MCV (RBC) [Entitic vol] 92 fL Normal 80-100 [facility] [employer] Comment on above: Performed By: #### G GLU, CBC #### [facility] [address] [place], [place] [id number] Platelet mean volume (Bld) [Entitic vol] 10.80 fL Normal 7.50-12.50 [facility] [employer] Comment on above: Performed By: #### G GLU, CBC #### [facility] [address] [place], [place] [id number] Platelets (Bld) [#/Vol] 240 10*3/uL Normal 140-400 [facility] Specialist Comment on above: Performed By: #### G GLU, CBC #### [facility] [address] [place], [place] [id number] RBC (Bld) [#/Vol] 3.56 10*6/uL Low 3.90-5.20 [facility] Women[employer] Lac[employer] Coach Comment on above: Performed By: #### G GLU, CBC #### [facility] [address] [place], [place] [id number] RDW-SD 42.5 fL Normal 37.0-50.0 [facility] [employer] Comment on above: Performed By: #### G GLU, CBC #### [facility] [address] [place], [place] [id number] WBC (Bld) [#/Vol] 9.5 10*3/uL Normal 3.8-11.0 [facility] Women[employer]S Lac[employer] Coach Comment on above: Performed By: #### G GLU, CBC #### [facility] [address] [place], [place] [id number] Glucose - Gestational Screen on 09-20-2021 Glucose [Mass/Vol] 128 mg/dL Normal <135 [facility] Women[employer] Lac[employer] Coach Comment on above: Result Comment: A va lue of 135 mg/dL or greater indicates the need for a full glucose tolerance test performed in the fasting state to determine if the patient has gestational diabetes. Performed By: #### G GLU, CBC #### [facility] [address] [place], [place] [id number] US OB Growthon 08-29-2021 US OB Growth FINDINGS: Comparison made with prior examination of July 19, 2021, delivery at that time was December 04, 2021. A single, live intrauterine is present with normal cardiac rate of 160 beats per minute. Normal activity and amniotic fluid volume. Amniotic fluid index is 41.0 cm. Morphology is grossly normal. The cervix is long and closed, 3.6 cm. The placenta is primarily fundal not associated with the cervical os. The current sonographic age is 24 weeks and 4 days, based on the following measurements: BPD 5.6cm ( 23 weeks, 2 days) Head Circumference 23.0 cm (25 weeks, 0 days) Abdominal Circumference 20.4cm ( 25 weeks, 0 days) Femur Length 4.6cm (25 weeks, 2 days) Presentation Brreech Placenta Primarily fundal Weight by percentile 20.1% These measurements result in an estimated date of delivery of December 15, 2021. The current estimated weight is 762 grams +/- grams ( 1 pound, 11 ounces). IMPRESSION: Single, live intrauterine , current sonographic age of 24 weeks and 4 days, with an estimated date of delivery of December 15, 2021. Report reported and signed by Param Garnett on 08/30/2021 0926 The KUNAL on the original report was accidentally typed incorrectly. The correct AFT for this exam of 14.0 cm. Report reported and signed by Param Garnett on 09/02/2021 0850 Normal [facility] [employer] US OB 2nd/3rd Trimesteron US OB 2nd/3rd Trimester FINDINGS: Comparison is made with the prior examination of May 04, 2021. A single, viable intrauterine is present with adequate cardiac (141 beats per minute) and activity and amniotic fluid volume. Amniotic fluid index is 14.0 cm. Morphology is grossly normal. 7 mm choroid plexus cyst. The cervix is long and closed, 3.7 cm. The current sonographic age is 20 weeks and 2 days, based on the following measurements: BPD 4.7 cm (20 weeks, 2 days) Head Zulqdebmkaoih98.5 cm (20 weeks, 0 days) Abdominal Ptfdwdmsjmxmq29.2 cm (20 weeks, 3 days) Femur Length 3.3 cm (20 weeks, 3 days) Presentation Breech Placenta Posterior Grade I Weight (g) by Percentile 79.7%* These measurements result in an estimated date of delivery of December 04, 2021 . The current estimated weight is 349 grams (12 ounces). IMPRESSION: Single, viable intrauterine , current sonographic age of 20 weeks and 2 days, with an estimated date of delivery of December 04, 2021. Estimated date of delivery on the prior examination was December 03, 2021. *Estimated Weight (g) by Percentile is based upon an accurate estimated age based on last menstrual period. Report reported and signed by Param Garnett on 07/19/2021 1537 No subchorionic cysts identified on this examination. Report reported and signed by Param Garnett on 09/20/2021 0947 Normal [facility] [employer] C. Trachomatis, External Res ulton 05-04-2021 C. Trachomatis, External Result Not detected [employer] Phone: HIV, External Resulton 05-04 HIV, External Result Non-Reactive [employer] Phone: Hepatitis B, External Result on 05-04-2021 Hep B, External Result Non-Reactive [employer] Phone: N. Gonorrhoeae, External Res ulton 05-04-2021 N. Gonorrhoeae, External Result Not detected [employer] Phone: No Panel Informationon 05-04 [employer] Phone: [employer] Phone: RPR, External Labon 05-04-20 RPR, External Result Non-Reactive [employer] Phone: Rubella Titer, External Resu lton 05-04-2021 Rubella Titer, External Result immune [employer] Phone: Cytologyon 06-05-2017 Cytology (NOTE)[id number] Y LABORATORIESCONSULTING PATHOLOGISTS [facility] YBXRYLOBP[address] [place] [phone] Fax: GYNECOLOGIC CYTOLOGY REPORTPatient Name: PARMINDER MASSEY#: [id number] #[id number]:1: Cervical material, (ThinPrep vial, Imaging-assisted review)Clinical HistoryNo LMP date givenContraceptive useR87.615 Unsatisfactory pap of cervixHigh Risk HPV DNA testing is requested if the diagnosis is ASC-USINTERPRETATIONCervi mariama material, (ThinPrep vial, Imaging-assisted review):Specimen Adequacy: Satisfactory for evaluation. - Endocervical/transformati on zone component present.Descriptive Diagnosis: Negative for intraepithelial lesion or malignancy.Shift in aniceto suggestive of bacterial vaginosis.Cytotechnologis t: SZSENAIT. Deca, CT(ASCP)Electronically Signed Out06/14/2017 Normal [facility] DHEA Sulfateon 04-09-2017 DHEA Sulfate 107.0 ug/dL Normal 65-380 [facility] Comment on above: Result Comment: [facility] [employer] [address] [place] [address] Performed By: #### C YTCGP ####[address] [address] Cortisolon 04-06-2017 Cortisol 10.0 ug/dL Normal [facility] Comment on above: Result Comment: Georges isol Reference Range: AM 6.0-18.4 PM 2.7-10.[address] [address] Performed By: #### G ADILENE, CORTI, INSU, TSHX, PROL, FTST, DHES ####[address] [address] Glucoseon 04-06-2017 Glucose mass conc 83 mg/dL Normal 70-99 [facility] Comment on above: Result Comment: [facility] [employer] [address] [place] [address] Performed By: #### G ADILENE, CORTI, INSU, TSHX, PROL, FTST, DHES ####[address] [address] Insulinon 04-06-2017 Insulin 11.1 mU/L Normal [facility] Comment on above: Performed By: #### G ADILENE, CORTI, INSU, TSHX, PROL, FTST, DHES ####[address] [address] Reference Range Normal [facility] Comment on above: Result Comment: Fast in.6-24.930 min: 20-04134 min: 29-8890 min: 26-89300 min: 22-[address] [address] Performed By: #### G ADILENE, CORTI, INSU, TSHX, PROL, FTST, DHES ####[address] [address] Collection Info. NOT REPORTED Normal [facility] Comment on above: Performed By: #### G ADILENE, CORTI, INSU, TSHX, PROL, FTST, DHES ####[address] [address] Prolactinon 04-06-2017 Prolactin 35.67 ug/L High 4.79-23.30 [facility] Comment on above: Result Comment: The presence of macroprolactin may cause interference in female patients with various endocrinological diseases or during .[address] [address] Performed By: #### G ADILENE, CORTI, INSU, TSHX, PROL, FTST, DHES ####[address] [address] TSH w/reflex to FT4on 2016 Thyroid stimulating hormone (TSH) 1.54 m[IU]/L Normal 0.30-5.00 [facility] Comment on above: Result Comment: [address] [address] Performed By: #### G ADILENE, CORTI, INSU, TSHX, PROL, FTST, DHES ####[address] [address] Testosterone, Freeon 017 Sex Horm Bind Glob 133 nmol/L Normal 30-135 [facility] Comment on above: Performed By: #### G ADILENE, CORTI, INSU, TSHX, PROL, FTST, DHES ####[address] [address] Testosterone 27 ng/dL Normal 20-70 [facility] Comment on above: Performed By: #### G ADILENE, CORTI, INSU, TSHX, PROL, FTST, DHES ####[facility] [place] [address] Testosterone,Free 1.7 pg/mL Normal 0.8-7.4 [facility] Comment on above: Result Comment: The concentration of free testosterone is derived from a mathematical expression based on the constant for the binding of testosterone to albumin and/or sex hormone binding globulin.[place] [address] [place] [address] Performed By: #### G ADILENE, CORTI, INSU, TSHX, PROL, FTST, DHES ####[facility] [place] [address] US PELVIS COMPLETEon 017 US PELVIS COMPLETE EXAMINATION:PELVIC ULTRASOUND04/06/2017TECHNI QUE:Transabdominal and transvaginal pelvic ultrasound was performed.COMPARISON:None HISTORY:ORDERING SYSTEM PROVIDED HISTORY: DysmenorrheaFINDINGS:Valeri urements:Uterus: Anteverted uterus measuring 6.7 x 3.9 x 5.3 cm in dimensionEndometrial stripe: 7.9 mm in thicknessRight Ovary: 2.4 x 1.0 x 1.9 cmLeft Ovary: 3.0 x 2.1 x 3.0 cmUltrasound Findings:Uterus: Uterus demonstrates normal myometrial echotexture.Endometrial stripe: Endometrial stripe is within normal limits.Right Ovary: Right ovary is within normal limits. There is blood flow to theright ovary.Left Ovary: There is a 2.4 by 1.7 x 1.4 cm unilocular follicular cyst in theleft ovary. Blood flow to the residual left ovary is noted.Free Fluid: No evidence of free fluid.IMPRESSION: Left ovarian cyst. No free fluid in the cul-de-sac.Interpreted by:MATT Batresigned by:Ethan Armstrong MD04/06/17Final result Normal [facility] Chlamydia/GC DNA, TPon 03-29 Chlamydia Probe, TP Negative Normal NEG [facility] Comment on above: Result Comment: CHLA MYDIA TRACHOMATIS DNA not detected by nucleic acid amplification. Performed By: #### C YTCGP ####[facility] [address] [place] [address] Gonorrhea Probe, TP Negative Normal NEG [facility] Comment on above: Result Comment: NEIS SERIA GONORRHOEAE DNA not detected by nucleic acid amplification.[employer] [address] [place] [address] Performed By: #### C YTCGP ####[address] [address] Cytologyon 03-28-2017 Cytology (NOTE)[id number] LABORATORIESCONSULTING PATHOLOGISTS CORPORATIONANATOMIC JSOGFBHOA[address] [place] [phone] Fax: GYNECOLOGIC CYTOLOGY REPORTPatient Name: PARMINDER MASSEY#: [id number] #[id number]:1: Cervical material, (ThinPrep vial, Imaging-assisted review)Clinical HistoryNo LMP date zkpscA26.4 Encounter for screening for malignant neoplasm of cervixHigh Risk HPV DNA testing is requested if the diagnosis is ASC-USINTERPRETATIONCervi mariama material, (ThinPrep vial, Imaging-assisted review):Specimen Adequacy: Unsatisfactory for evaluation.Specimen processed and examined but unsatisfactory for evaluation of epithelial abnormality due to: - Insufficient epithelial cell component, predominantly exudate.Descriptive Diagnosis: Interpretation not possible due to unsatisfactory specimenadequacy.Shift in aniceto suggestive of bacterial vaginosis.Cytotechnologis t: DORINA. ALFREDA Larry(ASCP)Electronically Signed Outmk/04/04/2017 Normal [facility] Vaginitis DNA Probeon 2016 Vaginitis DNA Probe Specimen Description .VAGINAL SWABSpecial Requests NOT REPORTEDDirect Exam POSITIVE for Gardnerella vaginalis. NEGATIVE for Kim sp. NEGATIVE for Trichomonas vaginalis Method of testing is a DNA probe intended for detection and identification of Kim species, Gardnerella vaginalis, and Trichomonas vaginalis nucleic acid in vaginal fluid specimens from patients with symptoms of vaginitis/vaginosis. Report Status FINAL 03/28/2017 Normal [facility] Comment on above: Performed By: #### V AGDNA ####[facility] [place] [address] Vital Signs Date Time Vital Sign Value Performing Clinician Facility 07-23-2024 10:07-0500 Body mass index (BMI) [Ratio] 27.29 kg/m2 Maulik Floro CNM Work Phone: [facility] 07-23-2024 10:07-0500 Body weight 74.39 kg Maulik Floro CNM Work Phone: [facility] 07-23-2024 10:07-0500 Diastolic blood pressure 80 mm[Hg] Maulik Floro CNM Work Phone: [facility] 07-23-2024 10:07-0500 Systolic blood pressure 120 mm[Hg] Maulik Floro CNM Work Phone: [facility] 06-25-2024 10:32-0500 Body mass index (BMI) [Ratio] 25.79 kg/m2 Maulik Floro CNM Work Phone: [facility] 06-25-2024 10:32-0500 Body weight 70.31 kg Maulik Floro CNM Work Phone: [facility] 06-25-2024 10:32-0500 Diastolic blood pressure 80 mm[Hg] Maulik Floro CNM Work Phone: [facility] 06-25-2024 10:32-0500 Systolic blood pressure 120 mm[Hg] Maulik Floro CNM Work Phone: [facility] 05-21-2024 09:23-0500 Body mass index (BMI) [Ratio] 24.13 kg/m2 Maulik Floro CNM Work Phone: [facility] 05-21-2024 09:23-0500 Body weight 65.77 kg Maulik Floro CNM Work Phone: [facility] 05-21-2024 09:23-0500 Diastolic blood pressure 80 mm[Hg] Maulik Floro CNM Work Phone: [facility] 05-21-2024 09:23-0500 Systolic blood pressure 120 mm[Hg] Maulik Floro CNM Work Phone: [facility] 04-23-2024 09:26-0400 Body mass index (BMI) [Ratio] 22.63 kg/m2 Maulik Floro CNM Work Phone: [facility] 04-23-2024 09:26-0400 Body weight 61.69 kg Maulik Floro CNM Work Phone: [facility] 04-23-2024 09:26-0400 Diastolic blood pressure 70 mm[Hg] Maulik Floro CNM Work Phone: [facility] 04-23-2024 09:26-0400 Systolic blood pressure 112 mm[Hg] Maulik Floro CNM Work Phone: [facility] 03-19-2024 09:31-0400 Body mass index (BMI) [Ratio] 21.8 kg/m2 Maulik Floro CNM Work Phone: [facility] 03-19-2024 09:31-0400 Body weight 59.42 kg Maulik Floro CNM Work Phone: [facility] 03-19-2024 09:31-0400 Diastolic blood pressure 72 mm[Hg] Maulik Floro CNM Work Phone: [facility] 03-19-2024 09:31-0400 Systolic blood pressure 112 mm[Hg] Maulik Floro CNM Work Phone: [facility] 12-10-2021 07:07-0400 Body temperature 98.1 [degF] Rodo Simmons [employer]OTECTION ENGINEER - CNM Work Phone: [facility] 12-10-2021 07:07-0400 Diastolic blood pressure 65 mm[Hg] Rodo Mason CNM Work Phone: [employer] 12-10-2021 07:07-0400 Heart rate 81 /min Rodo Mason CNM Work Phone: [employer] 12-10-2021 07:07-0400 Respiratory rate 18 /min Rodo Mason CNM Work Phone: [employer] 12-10-2021 07:07-0400 Systolic blood pressure 114 mm[Hg] Rodo Mason CNM Work Phone: [employer] 12-08-2021 00:34-0400 SaO2% (BldA) [Mass fraction] 94 % Rodo Mason CNM Work Phone: [employer] 12-07-2021 05:40-0400 Body height 165.1 cm Rodo Mason CNM Work Phone: [employer] 12-07-2021 05:40-0400 Body mass index (BMI) [Ratio] 30.12 kg/m2 Rodo Mason CNM Work Phone: [employer] 12-07-2021 05:40-0400 Body weight 82.1 kg Rodo Mason CNM Work Phone: [employer] Encounters Encounter Date Encounter Type Care Provider Facility Start: 07-23-2024 End: 07-23-2024 Bamboo flowsheet Maulik Zeeshan Espinozao CNM Work Phone: [facility] Start: 07-23-2024 End: 07-23-2024 Bamboo flowsheet Maulik Zeeshan Floro CNM Work Phone: [facility] Start: 07-23-2024 End: 07-23-2024 Subsequent care visit Maulik Zeeshan Espinozao CNNeal Work Phone: [facility] Comment on above: Encounter for superv ision of other normal , third trimester (Primary Dx); History of section Start: 06-25-2024 End: 06-25-2024 Bamboo flowsheet Maulik L Floro CNM Work Phone: [facility] Start: 06-25-2024 End: 06-25-2024 Bamboo flowsheet Maulik L Floro CNM Work Phone: [facility] Start: 06-25-2024 End: 06-25-2024 ambulatory MAULIK L FLORO Not Available Start: 06-25-2024 End: 06-25-2024 Subsequent care visit Maulik L Floro CNM Work Phone: [facility] Comment on above: Encounter for superv ision of other normal , third trimester (Primary Dx); History of section Start: 06-24-2024 End: 06-24-2024 Bamboo flowsheet Maulik L Floro CNM Work Phone: [facility] Start: 06-24-2024 End: 06-24-2024 Bamboo flowsheet Maulik L Floro CNM Work Phone: [facility] Start: 06-24-2024 End: 06-24-2024 ambulatory MAULIK L FLORO Not Available Start: 06-17-2024 End: 06-17-2024 Telephone encounter Maulik L Floro CNM Work Phone: [facility] Start: 06-05-2024 End: 06-05-2024 ambulatory MAULIK L FLORO Not Available Start: 05-21-2024 End: 05-21-2024 Bamboo flowsheet Maulik L Floro CNM Work Phone: [facility] Start: 05-21-2024 End: 05-21-2024 Bamboo flowsheet Maulik L Floro CNM Work Phone: [facility] Start: 05-21-2024 End: 05-21-2024 Subsequent care visit Maulik L Floro CNM Work Phone: [facility] Comment on above: Encounter for superv ision of other normal , second trimester (Primary Dx); Choroid plexus cyst; History of section Start: 05-21-2024 End: 05-21-2024 ambulatory MAULIK L FLORO Not Available Start: 04-23-2024 End: 04-23-2024 Bamboo flowsheet Maulik L Floro CNM Work Phone: [facility] Start: 04-23-2024 End: 04-23-2024 Bamboo flowsheet Maulik L Floro CNM Work Phone: [facility] Start: 04-23-2024 End: 04-23-2024 Subsequent care visit Maulik L Floro CNM Work Phone: [facility] Comment on above: Encounter for superv ision of other normal , second trimester (Primary Dx); History of section Start: 04-23-2024 End: 04-23-2024 ambulatory MAULIK L FLORO Not Available Start: 03-19-2024 End: 03-19-2024 Bamboo flowsheet Maulik L Floro CNM Work Phone: [facility] Start: 03-19-2024 End: 03-19-2024 Bamboo flowsheet Maulik L Floro CNM Work Phone: [facility] Start: 03-19-2024 End: 03-19-2024 ambulatory MAULIK L FLORO Not Available Start: 03-19-2024 End: 03-19-2024 Subsequent care visit Maulik L Floro CNM Work Phone: [facility] Comment on above: Encounter for superv ision of other normal , second trimester (Primary Dx); related condition in second trimester; Stomach pain Start: 02-26-2024 End: 02-26-2024 ambulatory MAULIK L FLORO Not Available Start: 01-29-2024 End: 01-29-2024 ambulatory MAULIK L FLORO Not Available Start: 01-29-2024 End: 01-29-2024 ambulatory MAULIK DEL TORO Not Available Start: 12-07-2021 End: 12-10-2021 Evaluation and management of inpatient RODO SHAW [facility] Start: 12-07-2021 End: 12-10-2021 Evaluation and management of inpatient Rodo Simmons [employer]OTE[employer]INE[employer] - CNM Work Phone: [facility] Labor and Delivery Comment on above: Third trimester preg corey Start: 06-24-2021 End: 06-24-2021 ambulatory ARINA DEL TORO Facility: Start: 06-06-2017 End: 06-06-2017 Ambulatory [facility] Start: 04-06-2017 End: 04-07-2017 Ambulatory [facility] Start: 03-28-2017 End: 03-29-2017 Ambulatory [facility] Procedures Date Procedure Procedure Detail Performing Clinician Start: 12-08-2021 Blood count complete automated Maulik Del Toro [employer]OTECTION ENGINEER - CNM Work Phone: Start: 12-08-2021 RHO(D) IMMUNE GLOBUL IN, Maulik Del Toro [employer] PROTECTION ENGINEER - CNM Work Phone: Start: 12-07-2021 SURGICAL PATHOLOGY REPORT Matt Light MD Work Phone: Start: 12-07-2021 Blood count complete auto&auto difrntl wbc Rodo Shaw [employer]OTE[employer] ENGINEER - CNM Work Phone: Start: 12-07-2021 biophysical pr ofile w/o non-stress testing Rodo Tafoya Simmons [employer]OTECTION ENGINEER - CNM Work Phone: Start: 12-07-2021 Drug tst prsmv instr mnt chem analyzers pr date Rodo Shaw [employer] ENGINEER - CNM Work Phone: Start: 12-07-2021 Urinalysis microscop ic only Rodo Simmons [employer]OTE[employer] ENGINEER - CNM Work Phone: Start: 12-07-2021 Urnls dip stick/tabl et rgnt auto w/o microscopy Rodo Simmons FIRE PROTECTION ENGINEER - [facility] Work Phone: Start: 11-10-2021 GBS, EXTERNAL RESULT De storical Provider Start: 09-22-2021 ABO, EXTERNAL RESULT De storical Provider Start: 09-22-2021 RH FACTOR, EXTERNAL RESULT Historical Provider MD Start: 09-21-2021 RHOGAM, EXTERNAL RESULT Historical Provider MD Start: 05-04-2021 C. TRACHOMATIS, EXTE RNAL RESULT Historical Provider MD Start: 05-04-2021 HEPATITIS B, EXTERNA L RESULT Historical Provider MD Start: 05-04-2021 [facility] Start: 05-04-2021 N. GONORRHOEAE, EXTE RNAL RESULT Historical Provider MD Start: 05-04-2021 [facility] Start: 05-04-2021 RUBELLA TITER, EXTER NAL RESULT Historical Provider MD Start: 06-05-2017 Microscopic observat ion [Identifier] in Cervix by Cyto stain Rodo Simmons FI[employer] PROTECTION ENGINEER - [facility] Work Phone: Start: 04-06-2017 CORTISOL TOTAL SONU DE LA ROSA SER Start: 04-06-2017 DHEA-SULFATE SONU GONZALEZ R Start: 04-06-2017 GLUCOSE, RANDOM SONU BRYAN ASER Start: 04-06-2017 INSULIN, TOTAL SONU FRA SER Start: 04-06-2017 PROLACTIN SONU LISA R Start: 04-06-2017 TESTOSTERONE, FREE SONU DE LA ROSASER Start: 04-06-2017 TSH WITH REFLEX SONU BRYAN ASER Start: 04-06-2017 Us pelvic nonobstetr ic real-time image complete SONU GONZALEZ Start: 04-06-2017 US PELVIS COMPLETE TRANSVAGINAL NON OB SONU GONZALEZ Start: 03-28-2017 C.TRACHOMATIS N.GONORRHOEAE DNA, THIN PREP SONU GONZALEZ Start: 03-28-2017 VAGINITIS DNA PROBE MARISELA GONZALEZ H/O: section History of section Maulik Del Toro [facility] Work Phone: H/O: section History of section Maulikerin Del Toro [facility] Work Phone: H/O: section History of section Maulik Del Toro [facility] Work Phone: H/O: section History of section Maulik Del Toro CN Work Phone: Plan of Treatment Date Care Activity Detail Author Start: 08-06-2024 End: 08-06-2024 Patient encounter procedure 08/06/2024 11:30 AM EST Routine [facility] [address] [place] [id number] Maulik Del Toro, CN [address] [place], [place] [id number] [facility] Start: 07-23-2024 End: 07-23-2024 Patient encounter procedure 07/23/2024 10:00 AM EST Routine [facility] [address] [place] [id number] Maulik Del Toro, HANNAH [address] [place] [address] [facility] Start: 06-24-2024 End: 06-24-2024 Patient encounter procedure [facility] Comment on above: Arrived Start: 05-21-2024 End: 05-21-2024 Patient encounter procedure [facility] Comment on above: Arrived Start: 04-23-2024 End: 04-23-2024 Professional / ancillary services management 04/23/2024 10:00 AM EDT Ancillary Procedure [facility] [address] [phone] [facility] Start: 04-23-2024 End: 04-23-2024 Patient encounter procedure [facility] Comment on above: Arrived Start: 03-19-2024 End: 03-19-2025 US for US OB 14+ weeks anatomy scan Imaging Routine related condition in second trimester Expected: 03/19/2024, Expires: 03/19/2025 [facility] Work Phone: Comment on above: Expected: 03/19/2024 , Expires: 03/19/2025 Start: 03-16-2024 Influenza vaccination Influenza Vacc ine (#1) [facility] Start: 03-04-2024 Screening for malign ant neoplasm of cervix [facility] Start: 03-16-2022 Influenza vaccination Flu vacc ine (Season Ended) [facility] Start: 2020 Screening for malign ant neoplasm of cervix [facility] Start: 06-05-2020 Screening for malign ant neoplasm of cervix Pap smear [facility] Start: 2009 DTaP/Tdap/Td vaccine (1 - Tdap) DTaP/Tdap/Td vaccine (1 - Tdap) [facility] Start: 2008 Hepatitis C screening Hepatitis C sc reen [facility] Start: 2005 HIV screening [facility] screen [facility] Start: 2002 Depression Screen Depression Screen [facility] Start: 1995 COVID-19 Vaccine (1) COVID-19 Vaccin e (1) [facility] Start: 1991 Varicella vaccine (1 of 2 - 2-dose childhood series) Varicella vaccine (1 of 2 - 2-dose childhood series) [facility] Nonrebreather mask oxygen Nonrebreather mask oxygen Respiratory Care Routine As directed - RT (PRN) until discontinued starting 12/07/2021 [employer] Phone: Comment on above: As directed - RT (OR N) until discontinued starting 12/07/2021 Oxygen therapy [[facility] Data Set] Initiate Oxygen Therapy Protocol Respiratory Care Routine As Needed until discontinued starting 12/07/2021 [employer] Phone: Comment on above: As Needed until disc ontinued starting 12/07/2021 RHOGAM RHOGAM POSTPAR MARCELINO Blood Bank [employer] Label Print 12/08/2021 7:15 AM EDT [employer] Phone: Spirometry panel Incentive drea metry Respiratory Care Routine Every 2hr while awake until discontinued starting 12/08/2021 [employer] Phone: Comment on above: Every 2hr while awak e until discontinued starting 12/08/2021 Immunizations Immunization Date Immunization Notes Care Provider Fa cilistephanie 12-07-2021 diphtheria, tetanus toxoids and acellular pertussis vaccine, unspecified formulation Rodo Simmons [facility] Work Phone: [employer] Phone: 12-07-2021 measles, mumps and rubella virus vaccine 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 2022 Unknown [employer] [id number] 2022-Present [address] [place] [address] [id number] 2022 Unknown [id number] 2016 Unknown [id number] 1990 Unknown [id number]. 593 1990 Unknown [id number]. 173 1990 Unknown [id number]. 9 1990 Unknown [id number] [id number]. 1258 1990 Unknown [id number] [id number]. 1258 1990 Unknown [id number] [id number]. 1258 1990 Unknown [id number] [id number]. 1258 1990 Unknown [id number] [id number]. 1258 1990 Unknown [id number] [id number]. 1258 1990 Unknown [id number] [id number]. 1258 1990 Unknown [id number] [id number]. 1258 1990 Unknown [id number]. 9 1959 Unknown [id number] Social History Date Type Detail Facility Start: 03-28-2017 End: 06-20-2023 Tobacco smoking status [facility] Ex-smoker [employer] Phone: History of tobacco use Cigarette Smoker [facility] [employer] Phone: Start: 03-28-2017 End: 01-29-2024 Cigarettes smoked current (pack per day) - Reported 1 [employer] Phone: Start: 03-28-2017 End: 06-20-2023 Tobacco use and exposure Smokeless tobacco non-user [employer] Phone: Start: 12-07-2021 Alcohol intake Ex-drinker (finding) [employer] Phone: Start: 1990 Sex Assigned At Not on file [facility] [employer] Phone: Start: 11-27-2021 End: 12-07-2021 Exposure to SARS-CoV-2 (event) Not sure [facility] [employer] Phone: History of tobacco use Current smoker [facility] Start: 01-29-2024 Alcoholic beverage intake Lifetime non-drinker (finding) [facility] Start: 01-29-2024 Tobacco use panel [facility] Start: 05-21-2023 Alcohol Comment caffeine: 1-2 cups per day [facility] Start: 12-23-2023 [facility] Clinical Notes 12-10-2021 to 07-23-2024 Maulik Del Toro CNM - 07/23/2024 10:00 AM Princess Mann MA - 06/25/2024 10:30 AM Kyler Del Toro CNM - 06/25/2024 10:30 AM ESTTelephone Encounter - Star Garcia - 06/17/2024 1:29 PM EST Note Date & Type Note Facility 07-23-2024 History of Present illness Narrative Subjective No chief complaint on file. Alton Davis is a 34 y.o. at 32w3d with a working estimated date of delivery of 09/14/2024, by Last Menstrual Period who presents for a routine visit. She denies vaginal bleeding, leakage of fluid, decreased movements, or contractions. OB History Para Term AB Living 2 1 1 SAB IAB Ectopic Multiple Live Births 1 # Outcome Date GA Lbr Dale/2nd Weight Sex Type Anes PTL Lv 2 Current 1 Para 12/07/21 7 lb 6 oz F CS-LTranv EPI, Spinal N XANDER Her is complicated by: Objective Physical Exam weight: 164 lb Expected Total Weight Gain: 25 lb-35 lb Pregravid BMI: 21.13 BP: 120/80 Urine protein-negative Urine glucose-negative Assessment/Plan Diagnoses and all orders for this visit: Encounter for supervision of other normal , third trimester History of section Continue vitamin. Labs reviewed. GBS Expected mode of delivery Follow up in 1 week for a routine visit. documented in this encounter [facility] 06-25-2024 History of Present illness Narrative Subjective No chief complaint on file. Alton Davis is a 33 y.o. at 28w3d with a working estimated date of delivery of 09/14/2024, by Last Menstrual Period who presents for a routine visit. She denies vaginal bleeding, leakage of fluid, decreased movements, or contractions. OB History Para Term AB Living 2 1 1 SAB IAB Ectopic Multiple Live Births 1 # Outcome Date GA Lbr Dale/2nd Weight Sex Type Anes PTL Lv 2 Current 1 Para 12/07/21 7 lb 6 oz F CS-LTranv EPI, Spinal N XANDER Her is complicated by: Objective Physical Exam weight: 155 lb Expected Total Weight Gain: 25 lb-35 lb Pregravid BMI: 21.13 BP: 120/80 Urine protein-negative Urine glucose-negative Assessment/Plan Continue vitamin. Labs reviewed. GBS taken. Expected mode of delivery Follow up in 1 week for a routine visit. Subjective No chief complaint on file. Alton Davis is a 33 y.o. at 28w3d with a working estimated date of delivery of 09/14/2024, by Last Menstrual Period who presents for a routine visit. She denies vaginal bleeding, leakage of fluid, decreased movements, or contractions. OB History Para Term AB Living 2 1 1 SAB IAB Ectopic Multiple Live Births 1 # Outcome Date GA Lbr Dale/2nd Weight Sex Type Anes PTL Lv 2 Current 1 Para 12/07/21 7 lb 6 oz F CS-LTranv EPI, Spinal N XANDER Her is complicated by: Rh - negative Objective Physical Exam weight: 155 lb Expected Total Weight Gain: 25 lb-35 lb Pregravid BMI: 21.13 BP: 120/80 Urine protein-negative Urine glucose-negative Assessment/Plan Diagnoses and all orders for this visit: Encounter for supervision of other normal , third trimester History of section Continue vitamin. Labs reviewed. GBS Expected mode of delivery repeat C/S Follow up in 4 weeks for a routine visit. documented in this encounter [facility] 06-17-2024 Telephone encounter Note Licha arciniega needs lab result that has her blood type on it and Demo sheet faxed to [phone] [facility] 06-17-2024 Miscellaneous Notes Licha arciniega needs lab result that has her blood type on it and Demo sheet faxed to [phone] documented in this encounter [facility] 05-21-2024 History of Present illness Narrative Subjective No chief complaint on file. Alton Davis is a 33 y.o. at 23w3d with a working estimated date of delivery of 09/14/2024, by Last Menstrual Period who presents for a routine visit. She denies vaginal bleeding, leakage of fluid, decreased movements, or contractions. OB History Para Term AB Living 2 1 1 SAB IAB Ectopic Multiple Live Births 1 # Outcome Date GA Lbr Dale/2nd Weight Sex Type Anes PTL Lv 2 Current 1 Para 12/07/21 7 lb 6 oz F CS-LTranv EPI, Spinal N XANDER Her is complicated by: history of section The following portions of the chart were reviewed this encounter and updated as appropriate: Objective Physical Exam weight: 145 lb Expected Total Weight Gain: 25 lb-35 lb Pregravid BMI: 21.13 BP: 120/80 Urine protein-negative Urine glucose-negative Labs: reviewed Imaging Assessment/Plan Continue vitamin. Labs reviewed. Rhogam GTT . Follow up in 2 weeks for a routine visit. documented in this encounter [facility] 04-23-2024 History of Present illness Narrative Subjective No chief complaint on file. Alton Davis is a 33 y.o. at 19w3d with a working estimated date of delivery of 09/14/2024, by Last Menstrual Period who presents for a routine visit. She denies vaginal bleeding, leakage of fluid, decreased movements, or contractions. OB History Para Term AB Living 2 1 1 SAB IAB Ectopic Multiple Live Births 1 # Outcome Date GA Lbr Dale/2nd Weight Sex Type Anes PTL Lv 2 Current 1 Para 12/07/21 7 lb 6 oz F CS-LTranv EPI, Spinal N XANDER Her is complicated by: previous c/s The following portions of the chart were reviewed this encounter and updated as appropriate: Objective Physical Exam weight: 136 lb Expected Total Weight Gain: 25 lb-35 lb Pregravid BMI: 21.13 BP: 112/70 Urine protein-negative Urine glucose-negative Labs: reviewed Imaging Assessment/Plan Diagnoses and all orders for this visit: Encounter for supervision of other normal , second trimester History of section Continue vitamin. Labs reviewed. Rhogam Follow up in 2 weeks for a routine visit. documented in this encounter [facility] 03-19-2024 History of Present illness Narrative Subjective No chief complaint on file. Alton Davis is a 33 y.o. at 14w3d with a working estimated date of delivery of 09/14/2024, by Last Menstrual Period who presents for a routine visit. She denies vaginal bleeding, leakage of fluid, decreased movements, or contractions. OB History Para Term AB Living 2 1 1 SAB IAB Ectopic Multiple Live Births 1 # Outcome Date GA Lbr Dale/2nd Weight Sex Type Anes PTL Lv 2 Current 1 Para 12/07/21 7 lb 6 oz F CS-LTranv EPI, Spinal N XANDER Her is complicated by: history of C/S delivery previously The following portions of the chart were reviewed this encounter and updated as appropriate: Objective Physical Exam weight: 131 lb Expected Total Weight Gain: 25 lb-35 lb Pregravid BMI: 21.13 BP: 112/72 Urine protein Urine glucose Labs: reviewed Imaging Assessment/Plan Diagnoses and all orders for this visit: Encounter for supervision of other normal , second trimester related condition in second trimester - US OB 14+ weeks anatomy scan; Future Continue vitamin. Labs reviewed. Rhogam needed at 28 weeks GTT at 28 weeks Follow up in 2 weeks for a routine visit. documented in this encounter [facility] 12-10-2021 Hospital Discharge instructions Lorin Arias RN - 12/10/2021 Follow-up with your OB doctor as specified. [facility] OB Department phone: Chikis Del Toro, MSN, FIRE PROTECTION ENGINEER, CNM [place] [address] DIET Eat a well balanced diet focusing on foods high in fiber and protein. Drink plenty of fluids especially water. To avoid constipation you may take a mild stool softener as recommended by your doctor or courtesy clerk. ACTIVITY Gradually increase your activity. Resume exercise regimen only after advice by your doctor or courtesy clerk. Avoid lifting anything heavier than a gallon of milk for SIX weeks. Avoid driving until your doctor or courtesy clerk has given their approval. Rise slowly from a lying to sitting and then a standing position. Climb stairs one at a time. Use caution when carrying your baby up and down the stairs. NO SEXUAL Activity for 4-6 weeks or until advised by your doctor; Nothing in vagina: intercourse, tampons, or douching. Be prepared to discuss family planning at your follow-up OB visit. You may feel tired or have a lack of energy. You may continue your vitamin to replenish nutrients post delivery. Nap when baby naps to catch up on sleep. EMOTIONS You may feel velásquez, sad, teary, & overwhelmed. Contact your OB provider if you feel you may be showing signs of depression, or have thoughts of harming yourself or your infant. If will not stop crying, contact another adult for help or place in their crib on their back and take a break. NEVER shake your . BLEEDING Vaginal bleeding will decrease in amount over the next few weeks. You will notice that as your activity increases, your flow may increase. This is your body's way of telling you, you need to take things easier and rest more often. Call your care provider if you are saturating more than one maxi pad in an hour & resting does not help. BREAST CARE Take medications as recommended by your doctor or courtesy clerk for pain If you develop a warm, red, tender area on your breast or develop a fever contact your OB provider. For moms: If you become engorged, feeding may be more difficult or painful for 1-2 days. You may find it helpful to hand express some milk so that the infant can latch on more easily. While , continue to take your vitamins as directed by your doctor or courtesy clerk. Refer to the booklet in the folder/binder for more information. If you feel you need more assistance or have questions, please call Vibha Crump IBCLC, law firm consultant, at or the OB department to schedule an appointment or phone consultation. For more FREE help, visit the Support Group on Sunday evenings at 7 pm in the OB department. For NON- moms: You may apply ice packs to your breasts over your bra for twenty minutes at a time for comfort. Avoid stimulation to your breasts, when showering allow the water to strike your back not your breasts. Wear a good fitting bra until your milk dries, such as a sports bra. INCISIONAL CARE / NADER CARE If you have an acticoat dressing in place after your please leave your dressing in place for one week until you follow up with your provider. They will remove this dressing in the office when you see them. If you have a KEON negative pressure wound dressing please leave the dressing in place for 7 days after delivery. Your health care provider will remove the dressing at your one week incisional check. You may shower with your KEON dressing, however the KEON pump should be disconnected and placed in a safe location where it will not get wet. To disconnect the pump from the dressing, press the orange button to pause the therapy, unscrew the two part connector, and place the pump somewhere safe. While disconnected, ensure the end of the tubing attached to the dressing is facing downward so that water does not enter the tubing. Then re-connect the pump after your shower is complete. If your dressing starts to peel up or becomes soiled prior to your appointment with your provider, you may remove the dressing and clean your incision as directed below. Clean your incision in the shower with mild soap. After shower pat the incision area dry and allow the area open to air. If used, Steri-strips should be completely removed by 2 weeks but you may remove them as they become loose or soiled. If used, [place] should be removed by your care provider. If used/ordered, an abdominal binder may provide support for your incision. Use the nader-bottle after toileting until bleeding stops. Cleanse your perineum from front to back If used, stitches will dissolve in 4-6 weeks. You may use a sitz bath or soak in a clean tub as needed for comfort. Kegel exercises will help restore bladder control. SWELLING Try to keep your legs elevated when you are sitting. When lying down keep your legs elevated. When wearing stocking or socks, make sure they are not too tight. WHEN TO CALL THE DOCTOR If you have a temp of 100.6 or more. If your bleeding has increased and you are saturating a pad in an hour. Your abdomen is tender to touch. You are passing blood clots bigger than the size of a lemon. If you are experiencing extreme weakness or dizziness. If you are having flu-like symptoms such as achy muscles or joints. There is a foul smell or a green color to your vaginal bleeding. If you have pain that cannot be relieved. You have persistent burning or frequency with urination. Call if you have concerns about your well-being. You are unable to sleep, eat, or are having thoughts of harming yourself or your baby. You have swelling, bleeding, drainage, foul odor, redness, or warmth in/around your incision or stitches. You have a red, warm, tender area in your calf. documented in this encounter [facility] Work Phone: 12-10-2021 History of Present illness Narrative C/S Labor and Delivery Post Progress Note SUBJECTIVE: 3rd day s/p primary for prolonged rupture of membranes, tachycardia, maternal fever, failure to progress, patient had bilateral leg edema that was bothering her during the night, no redness or heat, gave one dose po lasix with some diuresis, legs this morning with non pitting edema, no redness or heat, ita's sign negative b/l. In agreement with discharge today after baby's bili check Flatus:Present BM:no Diet: Tolerating regular diet Ambulation: Ambulateswithout difficulty OBJECTIVE: Vitals: BP 114/65 Pulse 81 Temp 98.1 F (36.7 C) (Oral) Resp 18 Ht 5' 5 (1.651 m) Wt 181 lb (82.1 kg) LMP 03/03/2021 SpO2 94% Unknown BMI 30.12 kg/m Patient Vitals for the past 24 hrs: BP Temp Temp src Pulse Resp 12/10/21 0707 114/65 98.1 F (36.7 C) Oral 81 18 12/09/21 2341 122/63 83 12/09/21 1539 (!) 141/75 98.2 F (36.8 C) Oral 81 16 12/09/21 1426 123/71 97.7 F (36.5 C) Oral 76 16 ABDOMEN: No scars, normal bowel sounds, soft, non-distended, non-tender, no masses palpated, no hepatosplenomegally INCISION: dressing in place, clean, dry and intact GENITAL/URINARY: External Genitalia: General appearance; normal, Hair distribution; normal, Lesions absent Cor: RRR no Murmurs Pulmonary: clear to auscultation anterior and posterior Extremities: no Clubbing cyanosis or ecchymosis DATA: CBC: Lab Results Component Value Date WBC 20.6 12/08/2021 RBC 3.15 12/08/2021 HGB 8.5 12/08/2021 HCT 26.3 12/08/2021 MCV 83.5 12/08/2021 MCH 27.0 12/08/2021 MCHC 32.3 12/08/2021 RDW 14.3 12/08/2021 PLT 219 12/08/2021 MPV 11.1 12/08/2021 ASSESSMENT: Principal Problem: Uterine contractions Plan: deliverd Active Problems: Term Plan: delivered intolerance to labor, delivered, current hospitalization Plan: delivered by Third trimester Plan: resolved S/P C/S post op day # 3 PLAN: D/c home, rto 1 and 6 weeks, routine instructions, continue her regular zoloft 25 po QHS, reviewed danger signs. Patient declined rx for percocet for homegoing. C/S Labor and Delivery Post Progress Note SUBJECTIVE: 2nd day s/p primary for prolonged rupture of membranes, tachycardia, maternal fever, failure to progress Flatus:Present BM:no Diet: Tolerating regular diet Ambulation: Ambulateswithout difficulty OBJECTIVE: Vitals: BP 121/74 Pulse 78 Temp 98 F (36.7 C) (Oral) Resp 16 Ht 5' 5 (1.651 m) Wt 181 lb (82.1 kg) LMP 03/03/2021 SpO2 94% Unknown BMI 30.12 kg/m Patient Vitals for the past 24 hrs: BP Temp Temp src Pulse Resp 12/09/21 0729 121/74 98 F (36.7 C) Oral 78 16 12/09/21 0655 123/61 98.1 F (36.7 C) Oral 72 16 12/08/21 2141 120/73 98 F (36.7 C) Oral 77 16 12/08/21 1643 125/74 98.1 F (36.7 C) Oral 79 17 12/08/21 1315 129/80 98 F (36.7 C) Oral 93 18 ABDOMEN: No scars, normal bowel sounds, soft, non-distended, non-tender, no masses palpated, no hepatosplenomegally INCISION: dressing in place, clean, dry and intact GENITAL/URINARY: External Genitalia: General appearance; normal, Hair distribution; normal, Lesions absent Cor: RRR no Murmurs Pulmonary: clear to auscultation anterior and posterior Extremities: no Clubbing cyanosis or ecchymosis DATA: CBC: Lab Results Component Value Date WBC 20.6 12/08/2021 RBC 3.15 12/08/2021 HGB 8.5 12/08/2021 HCT 26.3 12/08/2021 MCV 83.5 12/08/2021 MCH 27.0 12/08/2021 MCHC 32.3 12/08/2021 RDW 14.3 12/08/2021 PLT 219 12/08/2021 MPV 11.1 12/08/2021 ASSESSMENT: Principal Problem: Uterine contractions Plan: delivered Active Problems: Term Plan: delivered intolerance to labor, delivered, current hospitalization Plan: deliverd by Third trimester Plan: delivered S/P C/S post op day # 2 PLAN: Routine orders and instructions C/S Labor and Delivery Post Progress Note SUBJECTIVE: 1st day s/p primary for prolonged rupture of membranes, tachycardia, maternal fever, failure to progress Flatus:Present BM:no Diet: Tolerating regular diet Ambulation: Ambulateswithout difficulty OBJECTIVE: Vitals: BP 125/74 Pulse 79 Temp 98.1 F (36.7 C) (Oral) Resp 17 Ht 5' 5 (1.651 m) Wt 181 lb (82.1 kg) LMP 03/03/2021 SpO2 94% Unknown BMI 30.12 kg/m Patient Vitals for the past 24 hrs: BP Temp Temp src Pulse Resp SpO2 12/08/21 1643 125/74 98.1 F (36.7 C) Oral 79 17 12/08/21 1315 129/80 98 F (36.7 C) Oral 93 18 12/08/21 0731 126/77 97.9 F (36.6 C) Oral 78 18 12/08/21 0426 115/67 98.8 F (37.1 C) Oral 72 12/08/21 0034 94 % 12/08/21 0033 94 % 12/08/21 0030 134/69 74 12/08/21 0029 134/69 74 93 % 12/08/21 0027 94 % 12/08/21 0024 95 % 12/08/21 0019 95 % 12/08/21 0017 94 % 12/08/21 0015 132/85 83 18 12/08/21 0014 96 % 12/08/21 0009 97 % 12/08/21 0004 96 % 12/08/21 0000 123/65 75 18 12/07/21 2359 98 % 12/07/21 2354 99 % 12/07/21 2349 98 % 12/07/21 2345 132/73 83 18 12/07/21 2344 97 % 12/07/21 2339 97 % 12/07/21 2335 94 % 12/07/21 2334 95 % 12/07/21 2330 128/70 98.9 F (37.2 C) Oral 77 16 12/07/21 2329 99 % 12/07/21 2324 97 % 12/07/21 2319 98 % 12/07/21 2315 121/65 91 18 12/07/21 2314 121/65 91 100 % 12/07/21 2309 98 % 12/07/21 2304 98 % 12/07/21 2300 119/66 88 17 12/07/21 2259 99 % 12/07/21 2254 98 % 12/07/21 2249 97 % 12/07/21 2245 93 17 12/07/21 2244 98 % 12/07/21 2239 91 % 12/07/21 2237 93 % 12/07/21 2234 95 % 12/07/21 2230 18 12/07/21 2229 97 % 12/07/21 2224 99 % 12/07/21 2219 100 % 12/07/21 2215 (!) 121/57 98.8 F (37.1 C) Oral 96 18 12/07/21 2214 97 % ABDOMEN: No scars, normal bowel sounds, soft, non-distended, non-tender, no masses palpated, no hepatosplenomegally INCISION: dressing in place, clean, dry and intact GENITAL/URINARY: External Genitalia: General appearance; normal, Hair distribution; normal, Lesions absent Cor: RRR no Murmurs Pulmonary: clear to auscultation anterior and posterior Extremities: no Clubbing cyanosis or ecchymosis DATA: CBC: Lab Results Component Value Date WBC 20.6 12/08/2021 RBC 3.15 12/08/2021 HGB 8.5 12/08/2021 HCT 26.3 12/08/2021 MCV 83.5 12/08/2021 MCH 27.0 12/08/2021 MCHC 32.3 12/08/2021 RDW 14.3 12/08/2021 PLT 219 12/08/2021 MPV 11.1 12/08/2021 ASSESSMENT: Principal Problem: Uterine contractions Plan: delivered Active Problems: Term Plan: delivered intolerance to labor, delivered, current hospitalization Plan: delivered by Third trimester Plan: delivered S/P C/S post op day # 1 PLAN: Routine orders and instructions Respiratory notified of impending delivery of . States they will be up shortly to attend delivery. CNM in room. Patient is warm to touch. Temp 100.5 after tylenol given. Baseline heart rate 165-170 with good moderate variability, patient jude every 2 mins. Order to give terbutaline. Called Dr Light and called for primary section due to tachycardia, decelerations, prolonged rupture of membranes, maternal fever and failure to progress. Patients cervix did not dilate past 8cm. Dr Light agrees and OR team called per nursing staff. To unit. Report received from ARELY Carrera. I assumed care of the patient at this time. To patient's room. She is on her let side. SVE /0 brownish green fluid returned on chux pad with exam. Pitocin is off, Category 1 tracing at this time. Continue to labor and observe for change at this time. Dr Light updated. Ultrasound at bedside. Pt and her updated on POC. Both verbalize understanding. Nelda Simmons CNM notified of patients arrival, c/o LOF and contractions, reactive strip with cntx pattern, SVE and negative amnio swab. Orders received for BPP and KUNAL. No further orders received at this time. Amnio swab negative. Paper bag placed under patient. Triage questions asked at this time. Pt states she started leaking fluid around 2100 last night, went to sleep, woke up around 2300 and he underwear were soaked. Pt placed a pad on at that time and went back to sleep until 0400. Pt's pad at that time had scant amount of fluid noted on it. Pt changed before arrival to the hospital and denies any further leaking of fluid. Pt denies having intercourse in the last 48 hours. Pt ambulatory to unit with spouse with c/o contractions and leaking of fluid since 209912/06/21. Pt states they are every 3-8 minutes and rating some contractions pretty intense . Pt instructed to change into a gown and provide urine sample. documented in this encounter [facility] [employer] Phone: Evaluation note Diagnosis Uterine contractions- Primary Third trimester Term intolerance to labor, delivered, current hospitalization Abnormality in heart rate/rhythm, delivered, with or without mention of antepartum condition delivery delivered delivery, without mention of indication, delivered, with or without mention of antepartum condition documented in this encounter [facility] Work Phone: evaluation note* Diagnosis Encounter for supervision of other normal , second trimester- Primary History of section Other postprocedural status [facility] Diagnosis Encounter for supervision of other normal , third trimester- Primary History of section Other postprocedural status [facility] Diagnosis Encounter for supervision of other normal , second trimester- Primary related condition in second trimester Stomach pain Dyspepsia and other specified disorders of function of stomach [facility] Diagnosis Encounter for supervision of other normal , second trimester- Primary Choroid plexus cyst Cerebral cysts History of section Other postprocedural status Choroid plexus cyst Cerebral cysts [facility] Diagnosis Encounter for supervision of other normal , third trimester- Primary History of section Other postprocedural status documented in this encounter [facility] Summary Purpose Family History No Family History Records FoundNo Family History Records FoundNo Family History Records FoundNo Family History Records FoundNo Family History Records Found Advance Directives Documents on File Type Date 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 Latest Code Status on File Code Status Date Activated Date Inactivated Comments Full Code 12/07/2021 11:34 PM Full Code 12/07/2021 5:30 AM 12/07/2021 11:33 PM Additional Source Comments INFORMATION SOURCE (unrecogn ized section and content) DATE CREATED AUTHOR 01/08/2018 [facility] DATE CREATED AUTHOR AUTHOR'S ORGANIZ ATION 12/02/2021 [facility] DATE CREATED AUTHOR AUTHOR'S ORGANIZ ATION 12/08/2021 [facility] DATE CREATED AUTHOR AUTHOR'S ORGANIZ ATION [facility]/2022 [facility] DATE CREATED AUTHOR AUTHOR'S ORGANIZ ATION 06/30/2024 [facility] EPIC Reason for Visit (unrecogniz ed section and content) Reason Comments Contractions Specialty Diagnoses / Procedures Referred By Yolis t Referred To Contact Diagnoses Uterine contractions Term intolerance to labor, delivered, current hospitalization Rodo Shaw APRN - [facility] [address] [place] [address] [facility] [address] [place] [address] Referral ID Status Reason Start Date Expiration Date Visits Re quested Visits Authorized [id number] 1 1 Ordered Prescriptions (unrec ognized section and content) Prescription Sig Dispensed Refills Start Date End Da te docusate sodium (COLACE) 100 mg capsule Take 1 capsule by mouth 2 times daily 60 capsule 0 12/10/2021 sertraline (ZOLOFT) 25 MG tablet Take 1 tablet by mouth daily 30 tablet 0 12/10/2021 ibuprofen (ADVIL;MOTRIN) 800 MG tablet Take 1 tablet by mouth every 8 hours as needed for Pain With food 50 tablet 1 12/10/2021 Scheduled Active and Recently Administ ered Medications (unrecognized section and content) Medication Order 12/08/2021 12/09/2021 12/10/2021 clindamycin (CLEOCIN) 900 mg in dextrose 5 % 50 mL IVPB (COMPLETED) 900 mg, IntraVENous, EVERY 8 HOURS, 3 doses, First dose on Katarzyna 12/08/21 at 0000, Last dose on Katarzyna 12/08/21 at 1600, Antimicrobial Indications: Surgical Prophylaxis, 0026 (New Bag - Provider: Domitila Herzog RN)0027 (Rate/Dose Verify - Provider: Sherry Matt RN)0407 (Stopped - Provider: Domitila Herzog RN)0833 (New Bag - Provider: Sherry Matt RN)0836 (Rate/Dose Verify - Provider: Sherry Matt RN)0933 (Stopped - Provider: Sherry Matt RN)0957 (Stopped - Provider: Sherry Matt RN)1614 (New Bag - Provider: Lorin Arias RN)1708 (Rate/Dose Verify - Provider: Sherry Matt RN)1714 (Stopped - Provider: Crystal Campo RN) docusate sodium (COLACE) capsule 100 mg 100 mg, Oral, 2 TIMES DAILY, First dose on Katarzyna 12/08/21 at 0000, Until Discontinued, Do not crush or break., 0000 (Due)0810 (Given - Provider: Sherry Matt RN)2120 (Given - Provider: Daria Arce, RN) 0808 (Given - Provider: Usha Murguia, NESS)2336 (Given - Provider: Daria Arce, RN) 0900 (Due)2100 (Due) enoxaparin (LOVENOX) injection 40 mg 40 mg, SubCUTAneous, DAILY, First dose on Katarzyna 12/08/21 at 1030, Until Discontinued, Indication of Use: Prophylaxis-DVT/PE, 1107 (Given - Provider: Sherry Matt RN) 0808 (Given - Provider: Usha Murguia RN) 0900 (Due) furosemide (LASIX) tablet 20 mg (COMPLETED) 20 mg, Oral, ONCE, 1 dose, On 12/10/21 at 0030, STAT 0029 (Given - Provider: Lottie Maldonado RN) gentamicin (GARAMYCIN) 410.4 mg in dextrose 5 % 250 mL IVPB (COMPLETED) 410.4 mg (rounded from 410.5 mg = 5 mg/kg 82.1 kg), IntraVENous, ONCE, 1 dose, On Katarzyna 12/08/21 at 0600, Antimicrobial Indications: Surgical Prophylaxis, 0700 (New Bag - Provider: Domitila Herzog RN)0702 (Rate/Dose Verify - Provider: Sherry Matt RN)0800 (Due: Stopped - Provider: Domitila Herzog RN) vitamin 27-1 MG tablet 1 tablet 1 tablet, Oral, DAILY, First dose on Katarzyna 12/08/21 at 0900, Until Discontinued, Begin when normal bowel activity resumes., 0810 (Given - Provider: Sherry Matt RN) 0806 (Given - Provider: Usha Murguia, NESS) 0900 (Due) rho(D) immune globulin (HYPERRHO S/D) injection 300 mcg 300 mcg, IntraMUSCular, ONCE, 1 dose, On Katarzyna 12/08/21 at 0000, 0900 (Due - Provider: Domitila Herzog RN) sertraline (ZOLOFT) tablet 25 mg 25 mg, Oral, DAILY, First dose on Katarzyna 12/08/21 at 1015, Until Discontinued 190 (Not Given - Provider: Sherry Matt RN - Reason: Other - Comment: pt reports that she takes med nightly.)2118 (Given - Provider: Daria Arce RN) 2099 (Due - Provider: Kaushik Lindsey [facility]) 2099 (Due - Provider: Kaushik Lindsey [facility]) sodium chloride flush 0.9 % injection 5-40 mL 5-40 mL, IntraVENous, EVERY 12 HOURS SCHEDULED (2 times per day), First dose on Katarzyna 12/08/21 at 0900, Until Discontinued, For Line Patency: Peripheral IV = 5 mL; Midline or Central Line = 10 mL/lumen. If following IV push medication, administer flush at same rate as the IV push. Flush volume is determined by type of infusion therapy being given. For non-viscous solutions use: Peripheral IV = 5 mL Midline or Central Line = 10 mL/lumen For viscous solutions (i.e. blood components, parenteral nutrition, contrast media, or after obtaining blood sample) use: Peripheral IV = 10 mL Midline or Central Line = 20 mL/lumen, 09 (Not Given - Provider: Sherry Matt RN - Reason: IV Fluid Infusing)2099 (Due) 0900 (Due)2099 (Due) 09 (Due)2099 (Due) mazfxqi-ehcjza-szkyv pertussis (BOOSTRIX) injection 0.5 mL 0.5 mL, IntraMUSCular, PRIOR TO DISCHARGE, 1 dose, Starting on Sun12/07/21 at 2333, Until Discontinued, If not previously administered during at 27-36 weeks as recommended by CDC., Continuous Medication Order 12/08/2021 12/09/2021 12/10/2021 lactated ringers infusion IntraVENous, at 125 mL/hr, CONTINUOUS, Starting on Sun12/08/21 at 0000, 1740 (New Bag - Provider: Sherry Matt RN)1740 (Paused - Provider: Sherry Matt RN)174 (Restarted - Provider: Sherry Matt RN)1913 (Rate/Dose Verify - Provider: Sherry Matt RN)2300 (Stopped - Provider: Ena Gilmore RN) 0118 (New Bag - Provider: Sandi Chavis RN) 1442 (Stopped - Provider: Lorin Arias RN - Comment: Stopped by previous nurse) PRN Medication Order 12/08/2021 12/09/2021 12/10/2021 0.9 % sodium chloride infusion IntraVENous, at 5-250 mL/hr, PRN, if patient receiving piggyback infusions and maintenance fluids are not ordered OR KVO fluids to protect IV site / prevent frequent line interruptions/ long duration, Starting on Sun12/07/21 at 2333, For piggyback infusion, administer at same rate as piggyback for a total of 25 mL. Enter 25 mL into dose field and piggyback rate into rate field of order. If piggyback is infusing at a rate less than 100 mL/hr, enter 25 mL into dose field and 100 mL/hr into rate field of order. For KVO fluids, enter rate of 20 mL/hr or less into rate field of order., acetaminophen (TYLENOL) tablet 1,000 mg 1,000 mg, Oral, EVERY 8 HOURS PRN, Starting on Sun12/07/21 at 2333, Until Discontinued, Other, Pain (1-10), Give in addition to any other pain medication ordered at same time for any pain indication. Maximum dose of acetaminophen is 4000mg from all sources in 24 hours. Alternate ibuprofen and acetaminophen every 4 hours., 0018 (Given - Provider: Domitila Herzog RN)212 (Given - Provider: Daria Arce, NESS) 0418 (Given - Provider: Ena Gilmore RN)1429 (Given - Provider: Nataliia York RN)2336 (Given - Provider: Daria Arce RN) carboprost (HEMABATE) injection 250 mcg 250 mcg, IntraMUSCular, PRN, Starting on Sun12/07/21 at 2333, Until Discontinued, bleeding, May repeat every 15 minutes up to a cumulative maximum dose of 1000 mcg, at physician's request., Post-op diphenhydrAMINE (BENADRYL) injection 25 mg 25 mg, IntraVENous, EVERY 6 HOURS PRN, Starting on Sun12/07/21 at 2333, Until Discontinued, Itching, Hives, ibuprofen (ADVIL;MOTRIN) tablet 800 mg 800 mg, Oral, EVERY 8 HOURS PRN, Starting on Sun12/09/21 at 0751, Until Discontinued, Pain Moderate (4-6), Do not crush or chew. 0808 (Given - Provider: Usha Murguia, RN)1816 (Given - Provider: Nataliia York, NESS) 0513 (Given - Provider: Lottie Maldonado, NESS)1400 (Given - Provider: Lorin Arias, NESS) ketorolac (TORADOL) injection 30 mg (CANCELED) Ketorolac is contraindicated in patients with advanced renal impairment and in patients at risk of renal failure due to volume depletion. For 65 years of age and older OR weight less than 50 kg, use 15 mg IV every 6 hours; MAX dose: 60 mg/day. Dose greater than 30 mg must be administered via intramuscular route. Do not administer for more than 5 days., 30 mg, IntraVENous, EVERY 6 HOURS PRN, Starting on Sun12/07/21 at 2333, Until Sun12/09/21 at 0752, Pain (1-10), Give in addition to any other pain medication ordered at same time for any pain indication. Discontinue when able to take PO ibuprofen., 0417 (Given - Provider: Domitila Herzog RN)1107 (Given - Provider: Sherry Matt, NESS)1709 (Given - Provider: Sherry Matt RN)2314 (Given - Provider: Misa Mcfadden RN) lansinoh lanolin ointment Topical, EVERY 1 HOUR PRN, Dry Skin, nipple discomfort, Starting on Sun12/07/21 at 2333, Post-op measles, mumps & rubella vaccine (MMR) injection 0.5 mL 0.5 mL, SubCUTAneous, PRN, 1 dose, Starting on Sun12/07/21 at 2333, Until Discontinued, if non immune or equivical, methylergonovine (METHERGINE) injection 200 mcg 200 mcg, IntraMUSCular, PRN, Starting on Sun12/07/21 at 2333, Until Discontinued, Bleeding, PRN for post- hemorrhage, if not hypertensive., miSOPROStol (CYTOTEC) tablet 800 mcg 800 mcg, Rectal, PRN, 1 dose, Starting on Sun12/07/21 at 2333, Until Discontinued, Post- Hemorrhage, Notify Physician prior to administration., Post-op nalbuphine (NUBAIN) injection 10 mg 10 mg, IntraVENous, EVERY 4 HOURS PRN, Starting on Sun12/07/21 at 2333, Until Discontinued, or itching, Post-op naloxone (NARCAN) injection 0.4 mg 0.4 mg, IntraVENous, PRN, Starting on Sun12/07/21 at 2332, Until Discontinued, Opioid Reversal, Post-op ondansetron (ZOFRAN) injection 4 mg 4 mg, IntraVENous, EVERY 6 HOURS PRN, Starting on Sun12/07/21 at 233, Until Discontinued, Nausea, nausea, oxyCODONE (ROXICODONE) immediate release tablet 10 mg(Linked Group 1) 10 mg, Oral, EVERY 4 HOURS PRN, Starting on Sun12/07/21 at 2332, Until Discontinued, Pain Severe (7-10), oxyCODONE (ROXICODONE) immediate release tablet 5 mg(Linked Group 1) 5 mg, Oral, EVERY 4 HOURS PRN, Starting on Sun12/07/21 at 2332, Until Discontinued, Pain Moderate (4-6), sennosides-docusate sodium (SENOKOT-S) 8.6-50 MG tablet 1 tablet 1 tablet, Oral, DAILY PRN, Starting on Sun12/07/21 at 233, Until Discontinued, Constipation, simethicone (MYLICON) chewable tablet 80 mg 80 mg, Oral, EVERY 6 HOURS PRN, Starting on Sun12/07/21 at 2332, Until Discontinued, Cramping, Flatulence, 1743 (Given - Provider: Sherry Matt RN) sodium chloride flush 0.9 % injection 5-40 mL 5-40 mL, IntraVENous, PRN, Starting on Sun12/07/21 at 2333, Until Discontinued, Line Care, After every IV line use, For Line Patency: Peripheral IV = 5 mL; Midline or Central Line = 10 mL/lumen. If following IV push medication, administer flush at same rate as the IV push. Flush volume is determined by type of infusion therapy being given. For non-viscous solutions use: Peripheral IV = 5 mL Midline or Central Line = 10 mL/lumen For viscous solutions (i.e. blood components, parenteral nutrition, contrast media, or after obtaining blood sample) use: Peripheral IV = 10 mL Midline or Central Line = 20 mL/lumen, Linked Groups Order Group 1: oxyCODONE (ROXICODONE) immediate release tablet 5 mgJump to med 5 mg, Oral, EVERY 4 HOURS PRN, Starting on Sun12/07/21 at 2333, Until Discontinued, Pain Moderate (4-6), Or oxyCODONE (ROXICODONE) immediate release tablet 10 mgJump to med 10 mg, Oral, EVERY 4 HOURS PRN, Starting on Sun12/07/21 at 2333, Until Discontinued, Pain Severe (7-10), FOR RECORDS PERTAINING TO PATIENTS WHO ARE OR HAVE BEEN ENROLLED IN A CHEMICAL DEPENDENCY/SUBSTANCEABUSE PROGRAM, SOME INFORMATION MAY BE OMITTED. This clinical summary was aggregated from multiple sources. Caution should be exercised in using it in the provision of clinical care. This summary normalizes information from multiple sources, and as a consequence, information in this document may materially change the coding, format and clinical context of patient data. In addition, data may be omitted in some cases. CLINICAL DECISIONS SHOULD BE BASED ON THE PRIMARY CLINICAL RECORDS. [employer] [facility] provides no warranty or guarantee of the accuracy or completeness of information in this document.
[2024-07-27 18:00] VITALS: BP 120/57; PULSE 83; TEMP 36.8
--- NOTE | 2024-07-27 18:28 | US_ITS ---
[address] [address] Patient Name: ALTON LILLY MRN: [id number] date: 1990 Sex: F Assigned Patient Location: [facility] Current Patient Location: [facility] Accession/Order Number: [id number] Exam Date: 07/27/2024 18:45 Report Date: 07/27/2024 21:26 At the request of: JEAN DICKERSON Procedure: US OB BPP wo non-stress Examination:US OB BPP wo non-stress, US OB placenta INDICATION:abdominal pain COMPARISON:07/07/2024 ultrasound. TECHNIQUE:Limited ultrasonography was performed. Additional biophysical profile images were obtained. FINDINGS: Limited ultrasound: There is a single live intrauterine gestation in cephalic presentation. The placenta is anterior fundal in location and is within normal limits based on this ultrasound. No retroplacental fluid collections are present. A heartbeat 165 bpm was obtained.. Biophysical profile: Amniotic fluid volume is 14.7 cm which is within normal limits. There is mild dilation of each renal pelvis measuring 6.2 mm on the right and 5.2 mm on the left. breathing movements: 2 / 2 Gross body movements: 2 / 2 tone: 2 / 2 Qualitative amniotic fluid volume: 2 / 2 Total biophysical profile score: 8 / 8 US/US OB BPP wo non-stress IMPRESSION: 1. Single live intrauterine gestation with cardiac activity. The placenta is within normal limits based on this examination. 2. Biophysical profile score of 8/8. 3. Incidental note is made of mild dilation of each renal pelvis as discussed above. Electronically authenticated by: NICHOLAS GANT Date: 07/27/2024 21:26
--- NOTE | 2024-07-27 18:28 | US_ITS ---
[address] [address] Patient Name: ALTON LILLY MRN: [facility]:[id number] date: 1990 Sex: F Assigned Patient Location: [facility] Current Patient Location: [facility] Accession/Order Number: [id number] Exam Date: 07/27/2024 18:45 Report Date: 07/27/2024 21:26 At the request of: JEAN DICKERSON Procedure: US OB placenta Examination:US OB BPP wo non-stress, US OB placenta INDICATION:abdominal pain COMPARISON:07/07/2024 ultrasound. TECHNIQUE:Limited ultrasonography was performed. Additional biophysical profile images were obtained. FINDINGS: Limited ultrasound: There is a single live intrauterine gestation in cephalic presentation. The placenta is anterior fundal in location and is within normal limits based on this ultrasound. No retroplacental fluid collections are present. A heartbeat 165 bpm was obtained.. Biophysical profile: Amniotic fluid volume is 14.7 cm which is within normal limits. There is mild dilation of each renal pelvis measuring 6.2 mm on the right and 5.2 mm on the left. breathing movements: 2 / 2 Gross body movements: 2 / 2 tone: 2 / 2 Qualitative amniotic fluid volume: 2 / 2 Total biophysical profile score: 8 / 8 US/US OB placenta IMPRESSION: 1. Single live intrauterine gestation with cardiac activity. The placenta is within normal limits based on this examination. 2. Biophysical profile score of 8/8. 3. Incidental note is made of mild dilation of each renal pelvis as discussed above. Electronically authenticated by: NICHOLAS GANT Date: 07/27/2024 21:26
--- NOTE | 2024-07-27 18:31 | US_ITS ---
The [address] [address] Patient Name: ALTON LILLY MRN: [id number] date: 1990 Sex: F Assigned Patient Location: [facility] Current Patient Location: [facility] Accession/Order Number: [id number] Exam Date: 07/27/2024 18:45 Report Date: 07/27/2024 21:39 At the request of: JEAN DICKERSON Procedure: US right upper quadrant EXAM: US right upper quadrant HISTORY: 34 years old Female presenting with abdominal pain. 33 weeks . TECHNIQUE: Ultrasound of the right upper quadrant abdomen. COMPARISON: CT scan from the same day. FINDINGS: Liver: Normal in size, contour and echogenicity. No intrahepatic biliary ductal dilatation. The main portal vein demonstrates normal flow and direction. Gallbladder: The gallbladder is mildly contracted. No cholelithiasis or pericholecystic edema. Common bile duct: Normal in diameter, measuring 1.3 mm. Right kidney: Normal in size and echogenicity measuring 10.9 x 5.3 x 6.5 cm. Mild right hydronephrosis is present. No renal calculus is identified. Miscellaneous:The visualized pancreas is unremarkable. The tail is obscured from bowel gas interference. There is no free fluid in the right upper quadrant. US/US right upper quadrant IMPRESSION: Mild right hydronephrosis. Electronically authenticated by: NICHOLAS GANT Date: 07/27/2024 21:39
[2024-07-27] MEDS: 0.9 % SODIUM CHLORIDE 1,000 ML 999 ML IV (19:20)
[2024-07-27 19:27] VITALS: BP 122/72; PULSE 82
[2024-07-27] MEDS: CEFAZOLIN SODIUM/DEXTROSE,ISO 2 GM/50 ML PIGGYBACK IV (19:38)
[2024-07-27 19:42] LABS: Basophils Percent Auto 0.2 % (0.2-2.0); Eosinophils Percent Auto 0.2 % (0.9-7.0); Hematocrit 33.1 % (36.0-48.0); Hemoglobin 11.1 g/dL (12.0-16.0); Immature Granulocytes Abs Auto 0.16 10^3/uL (0.00-0.03); Immature Granulocytes Pct Auto 1.1 % (0.0-0.5); Lymphocytes Absolute Auto 1.5 10^3/uL (1.2-3.8); Lymphocytes Percent Auto 10.3 % (20.5-60.0); Mean Corpuscular HGB Conc 33.5 g/dL (29.9-35.2); Mean Corpuscular Hemoglobin 30.6 pg (26.7-34.0); Mean Corpuscular Volume 91.2 fL (81.0-99.0); Mean Platelet Volume 10.2 fL (9.5-13.5); Monocytes Absolute Auto 0.9 10^3/uL (0.3-0.8); Monocytes Percent Auto 6.3 % (1.7-12.0); Neutrophils Absolute Auto 11.8 10^3/uL (1.4-6.5); Neutrophils Percent Auto 81.9 % (43.0-75.0); Platelet Count 224 10^3/uL (150-450); Red Blood Count 3.63 10^6/uL (4.20-5.40); Red Cell Distribution Width 12.6 % (11.0-15.0); White Blood Count 14.4 10^3/uL (4.0-11.0)
[2024-07-27 19:57] LABS: Alanine Aminotransferase 12 U/L (14-59); Albumin Globulin Ratio 0.6; Albumin Level 2.5 g/dL (3.4-5.0); Alkaline Phosphatase 117 U/L (46-116); Amylase 96 U/L (25-115); Aspartate Amino Transferase 18 U/L (15-37); Bilirubin Direct <0.1 mg/dL (0.0-0.2); Bilirubin Total 0.2 mg/dL (0.2-1.0); Estimated GFR (African America >60 (>=60 mL/min/1.73m^2); Estimated GFR (Non-African Ame >60 (>=60 mL/min/1.73m^2); Globulin 4.1 g/dL; Total Protein 6.6 g/dL (6.4-8.2)
--- NOTE | 2024-07-27 20:02 | CT_ITS ---
[address] [address] Patient Name: ALTON LILLY MRN: [id number] date: 1990 Sex: F Assigned Patient Location: [facility] Current Patient Location: [facility] Accession/Order Number: [id number] Exam Date: 07/27/2024 20:26 Report Date: 07/27/2024 21:36 At the request of: JEAN DICKERSON Procedure: CT abdomen pelvis wo con EXAMINATION:CT abdomen pelvis wo con INDICATION:abdominal pain COMPARISON:None TECHNIQUE:Multiple thin section transaxial slices were acquired through the abdomen and pelvis without intravenous contrast. Coronal and sagittal reconstructed images were reviewed. Oral contrastWas not administered. FINDINGS: LOWER CHEST: The lower chest is unremarkable. LIVER: The liver is unremarkable. GALLBLADDER AND BILIARY SYSTEM: No obvious ductal dilation. No calcified stones. SPLEEN: The spleen is unremarkable. PANCREAS: The pancreas is unremarkable. ADRENAL GLANDS: The adrenal glands are unremarkable. KIDNEYS AND URETERS: Mild right-sided hydronephrosis and proximal right hydroureter are present.No obstructing urologic calcifications are present. The left kidney is within normal limits without hydronephrosis. VASCULATURE: Vascularity is unremarkable. PERITONEUM/RETROPERITONEUM: No free air or free fluid. LYMPH NODES: No suspicious lymphadenopathy. GASTROINTESTINAL TRACT: The bowel is normal in caliber.No obvious acute inflammation is present within the bowel loops.The appendix is not visualized and may be absent or diminutive. BLADDER: The urinary bladder is unremarkable. REPRODUCTIVE SYSTEM: There is an intrauterine present. BODY WALL: There is a tiny fat-containing umbilical hernia. BONES: Osseous structures are unremarkable. CT/CT abdomen pelvis wo con IMPRESSION: Mild right-sided hydronephrosis and proximal right hydroureter. No obstructing urologic calcifications. Electronically authenticated by: NICHOLAS GANT Date: 07/27/2024 21:36
[2024-07-27] MEDS: BETAMETHASONE ACE/BETAMETHASONE SOD PHOS 30 MG/5 ML 12 MG IM (21:43)
[2024-07-27] MEDS: 0.9 % SODIUM CHLORIDE 1,000 ML 150 ML IV (21:43)
[2024-07-27 21:45] VITALS: BP 111/63
[2024-07-27] MEDS: NIFEdipine 10 MG CAPSULE 20 MG PO (21:45)
[2024-07-27 21:46] VITALS: BP 111/63; PULSE 97
[2024-07-27 23:53] VITALS: BP 89/47; PULSE 98
[2024-07-28] VITALS (10 sets, daily range): BP systolic 85–123; BP diastolic 48–72; PULSE 88–116; TEMP 36.4–37.4
--- NOTE | 2024-07-28 02:28 | PC.NURSE ---
Pt awakens when RN enters room. Denies any needs. Call light in reach.
[2024-07-28] MEDS: 0.9 % SODIUM CHLORIDE 1,000 ML 150 ML IV ×2 (04:19→10:58)
[2024-07-28] MEDS: NIFEdipine 10 MG CAPSULE 20 MG PO (04:20)
--- NOTE | 2024-07-28 07:44 | PM.OBHP ---
OB - H&P: HPI History of Present Illness Chief complaint: R/O LABOR : 2 Para: 1 Gestational age based on last menstrual period: 33wks Narrative: 34 yo at 33 wks presents with complaints of lower abdomen pain she rates a 04/24, us and labs reviewed, pt given celestone and procardia, ct abd and pelvis reviewed, pt denies urinary symptoms, pt denies lof, vb, pt denies d,n,f,c,v History of Present Dating criteria: LMP confirmed by 1st trimester US care: good care Ultrasounds: normal 1st trimester US Medical complications OB: none Labs Blood type: A (-) negative Rubella: nonimmune Review of Systems ROS Status of ROS: 10 or more systems reviewed and unremarkable except as noted in history and below Meds Home Medications and Allergies Allergies Allergy/AdvReac Type Severity Reaction Status Date / Time No Known Drug Allergies Allergy Verified 07/27/24 18:39 Exam Constitutional Vital Signs, click to edit/add: Last Vital Signs Temp 97.6 F 07/28/24 04:22 Pulse 99 H 07/28/24 04:22 Resp 16 07/28/24 04:22 BP 102/56 07/28/24 04:22 O2 Del Method Room Air 07/28/24 04:22 Documenting provider has reviewed patient's vital signs: yes Common normals: no apparent distress Respiratory Common normals: clear to auscultation bilaterally Cardio Common normals: regular rate and regular rhythm GI Common normals: Normal to inspection, nondistended, normoactive bowel sounds present Extremity Common normals: no clubbing, cyanosis or edema and no calf tenderness Results Labs Labs: Short CBC 07/27/24 Range/Units 19:15 WBC 14.4 H (4.0-11.0) 10^3/uL Hgb 11.1 L (12.0-16.0) g/dL Hct 33.1 L (36.0-48.0) % Plt Count 224 (150-450) 10^3/uL BMP 07/27/24 19:15 BUN 9.0 Creatinine 0.69 Liver Function 07/27/24 Range/Units 19:15 Total Bilirubin 0.2 (0.2-1.0) mg/dL Direct Bilirubin <0.1 (0.0-0.2) mg/dL AST 18 (15-37) U/L ALT 12 L (14-59) U/L Alkaline Phosphatase 117 H (46-116) U/L Albumin 2.5 L (3.4-5.0) g/dL OB - A/P Assessment and Plan (1) Intrauterine : (2) Previous section: (3) Lower abdominal pain: Assessment and Plan: celestone and procardia given, iv hydration, cont efm, iv abx given, us and labs reviewed, will cont to observe
--- OUTSIDE RECORDS SUMMARY | 2024-07-28 08:04 | XMS_ITS | CCD ---
Author Organization [facility] Care Team Providers Care Travel Money Advisor Name Role Phone SONU GONZALEZ Unavailable Unavailable GONZALEZSONU K Unavailable Unavailable GONZALEZSONU MCNEILL K Unavailable Unavailable GONZALEZ SONU K Unavailable [...] Propensity to adverse reactions to substance 12-07-2021 [facility] Medications Current Medications Medication Drug Class(es) Dates [...] Active docusate sodium 50 mg / sennosides, mcfp 8.6 mg oral tablet (1 source) Start: 12-07-2021 sennosides-docusate sodium (SENOKOT-S) 8.6-50 MG tablet 1 tablet 0.4 ml enoxaparin sodium 100 mg/ml prefilled syringe (1 source) Low Molecular Weight Heparin Start: 12-08-2021 enoxaparin (LOVENOX) injection 40 mg famotidine 20 mg oral tablet (18 sources) Histamine-2 Receptor Antagonist Start: 07-21-2024 End: [...] w/FA-DHA ( Gummies) 0.18-25 MG chewable tablet (18 sources) MV & Mi n w/FA-DHA ( [...] Test Name Value Interpretation Reference Range Facility ALL CBC WITH AUTO DIFFon BASOPHILS ABSOLUTE AUTO 0 [facility] Basophils/100 WBC (Bld) 0.2 % 0.2 - 2.0 % [facility] Eosinophils/100 WBC (Bld) 0.2 % Low 0.9 - 7.0 % [facility] Erythrocyte distribution width (RBC) [Ratio] 12.6 % 11.0 - 15.0 % [facility] Hematocrit (Bld) [Volume fraction] 33.1 % Low 36.0 - 48.0 % [facility] Hemoglobin (Bld) [Mass/Vol] 11.1 g/dL Low 12.0 - 16.0 g/dL [facility] IMMATURE GRANULOCYTES ABS AUTO 0.16 High [facility] Immature granulocytes/100 WBC (Bld) 1.1 % High 0.0 - 0.5 % [facility] Interpretation and review of laboratory results Abnormal [facility] LYMPHOCYTES ABSOLUTE AUTO 1.5 [facility] Lymphocytes/100 WBC (Bld) 10.3 % Low 20.5 - 60.0 % [facility] MCH (RBC) [Entitic mass] 30.6 pg 26.7 - 34.0 pg [facility] MCHC (RBC) [Mass/Vol] 33.5 g/dL 29.9 - 35.2 g/dL [facility] MCV (RBC) [Entitic vol] 91.2 fL 81.0 - 99.0 fL [facility] MONOCYTES ABSOLUTE AUTO 0.9 High [facility] Monocytes/100 WBC (Bld) 6.3 % 1.7 - 12.0 % [facility] NEUTROPHILS ABSOLUTE AUTO 11.8 High [facility] Neutrophils/100 WBC (Bld) 81.9 % High 43.0 - 75.0 % [facility] Platelet mean volume (Bld) [Entitic vol] 10.2 fL 9.5 - 13.5 fL [facility] TBH EO # 0 [facility] PLT 224 [facility] TB RBC 3.63 Low [facility] WBC 14.4 High [facility] US for pregnancyon 4 TITLE OF EXAM: OB Ultrasound: REASON FOR [...] report is generated using voice recognition reporting (Gametimecribe). On occasion [employer] erroneously drops words from [...] report is generated using voice recognition reporting (Gametime[employer]). On occasion [employer] erroneously drops words from the report or replaces the spoken word with similar sounding words. Please call with any questions/concerns regarding this report.* Dictated and transcribed 06/05/24/dpd This report has been electronically signed and approved by the interpreting radiologist. [facility] for pregnancyOrdered By: Yordan Duran on 06-06-2024 [facility] [employer] Work Phone: OB LIMITED 1+ FETUSESon 1 08-05-2023 US [...] report is generated using voice recognition reporting ([employer]). On occasion [employer] erroneously drops words from the report or replaces the spoken word with similar sounding words. Please call with any questions/concerns regarding this report.* Dictated and transcribed 06/05/24/dpd This report has been electronically signed and approved by the interpreting radiologist. Normal Not Available US for pregnancyon Radiology Study observation (narrative) [facility] OB 14+ WEEKS ANATOMY SCAN on 04-23-2024 OB 14+ WEEKS ANATOMY SCAN TITLE OF [...] 2.8 cm. Yolk sac diameter 0.3 cm. [place] rump length is 1.5 cm. heart rate [...] SURGICAL PATHOLOGY CONSULTATION Patient Name: ALTON DAVIS [facility] Rec: [id number] Path Number: [id number] [facility] ANATOMIC PATHOLOGY [address] [place] [address]. [place], [place] [address] [facility] BIOPHYSICAL PROFILE WO NON STRESS TESTINGon 12-09-2021 BIOPHYSICAL PROFILE WO NON STRESS TESTING EXAMINATION: [...] Ajit Warner MD 12/09/21 Final result Normal [facility] Biophysical profile score 8/8. KUNAL 7.1. The findings were sent to the Radiology Results Communication Center at 10:15 am on 12/07/2021 to be communicated to a licensed caregiver. [facility] EXAMINATION: BIOPHYSICAL PROFILE WITHOUT NON-STRESS TEST [...] fluid index 7.1 with MVP 2.8 cm. [facility] Ajit Warner MD - 12/09/2021 EXAMINATION: BIOPHYSICAL PROFILE WITHOUT [...] to be communicated to a licensed caregiver. Where Phone: BIOPHYSICAL PROFILE WO NON STRESS TESTINGOrdered By: Ajit Warner on 12-09-2021 [facility]: CBCon 12-08-2021 Erythrocyte distribution width (RBC) [Ratio] 14.3 % Normal 11.8-14.4 [facility] Comment on above: Performed By: #### C BC #### [facility] [address] [place] [address] [place] [address] Erecting Crane Operator: Mohamud Lucas MD Hematocrit (Bld) [Volume fraction] 26.3 % Low 36.3-47.1 [facility] Comment on above: Performed By: #### C BC #### [address] [place] [address] Erecting Crane Operator: Mohamud Lucas MD Hemoglobin (Bld) [Mass/Vol] 8.5 g/dL Low 11.9-15.1 [facility] Comment on above: Performed By: #### C BC #### [address] [place] [address] Erecting Crane Operator: Mohamud Lucas MD MCH (RBC) [Entitic mass] 27.0 pg Normal 25.2-33.5 [facility] Comment on above: Performed By: #### C BC #### [facility] [address] [place], [place] [phone] Erecting Crane Operator: Mohamud Lucas MD MCHC (RBC) [Mass/Vol] 32.3 g/dL Normal 28.4-34.8 [facility] Comment on above: Performed By: #### C BC #### [address] [place], [place] [phone] Erecting Crane Operator: Mohamud Lucas MD MCV (RBC) [Entitic vol] 83.5 fL Normal 82.6-102.9 [facility] Comment on above: Performed By: #### C BC #### [address] [place], [place] [phone] Erecting Crane Operator: Mohamud Lucas MD NRBC Automated 0.0 per 100 WBC Normal 0.0 [facility] Comment on above: Performed By: #### C BC #### [address] [place], [place] [phone] Erecting Crane Operator: Mohamud Lucas MD Platelet mean volume (Bld) [Entitic vol] 11.1 fL Normal 8.1-13.5 [facility] Comment on above: Performed By: #### C BC #### [address] [place], [place] [phone] Erecting Crane Operator: Mohamud Lucas MD Platelets (Bld) [#/Vol] 219 10*3/uL Normal 138-453 [facility] Comment on above: Performed By: #### C BC #### [address] [place], [place] [phone] Erecting Crane Operator: Mohamud Lucas MD RBC (Bld) [#/Vol] 3.15 10*6/uL Low 3.95-5.11 [facility] Comment on above: Performed By: #### C BC #### [address] [place] [address] Erecting Crane Operator: Mohamud Lucas MD WBC (Bld) [#/Vol] 20.6 10*3/uL High 3.5-11.3 [facility] Comment on above: Performed By: #### C BC #### [facility] [address] [place] [address] Erecting Crane Operator: Mohamud Lucas MD Hematocrit (Bld) [Volume fraction] 26.3 % Low 36.3 - 47.1 % [facility] Hemoglobin.gastroin testinal spec 1 Ql (Stl) 8.5 g/dL Low 11.9 - 15.1 g/dL [facility] Interpretation and review of laboratory results Abnormal [facility] MCH (RBC) [Entitic mass] 27.0 pg 25.2 - 33.5 pg [facility] MCHC (RBC) [Mass/Vol] 32.3 g/dL 28.4 - 34.8 g/dL [facility] MCV (RBC) [Entitic vol] 83.5 fL 82.6 - 102.9 fL [facility] NRBC Automated 0.0 0.0 per 100 WBC [facility] Platelet distribution width (Bld) [Ratio] 14.3 % 11.8 - 14.4 % [facility] Platelet mean volume (Bld) [Entitic vol] 11.1 fL 8.1 - 13.5 fL [facility] Platelets (Bld) [#/Vol] 219 10*3/uL [facility] RBC (Bld) [#/Vol] 3.15 10*6/uL Low 3.95 - 5.1 1 m/uL [facility] WBC (Bld) [#/Vol] 20.6 10*3/uL High [facility] RhIg Workup (RhoGam)on 12-08 RhIg Workup (RhoGam) Blood Component Type MANUFACTURED PRODUCT Units Ordered 1 ABO/Rh(D) A NEGATIVE Antibody Screen NEGATIVE History Check NO PREVIOUS HISTORY Rhig Eligibility Patient Is A Candidate For Injection Eugenie NEGATIVE Du Antigen NOT TESTED Unit Number [id number] Blood Component Type RHIG Unit Division 00 Status of Unit REL FROM ALLOC Transfusion Status OK TO TRANSFUSE Normal [facility] Comment on above: Performed By: #### R HIGW #### [facility] [address] [place] [address] Erecting Crane Operator: Mohamud Lucas MD CBC auto differentialon 11-14 Absolute Eos # 0.08 [facility] Absolute Immature Granulocyte 0.08 [facility] Absolute Lymph # 1.81 [facility] Absolute [place] # 0.88 [facility] Basophils (Bld) [#/Vol] 0.04 10*3/uL [facility] Basophils/100 WBC (Bld) 0 % 0 - 2 % [facility] Eosinophils/100 WBC (Bld) 1 % 1 - 4 % [facility] Hematocrit (Bld) [Volume fraction] 32.8 % Low 36.3 - 47.1 % [facility] Hemoglobin.gastroin testinal spec 1 Ql (Stl) 10.3 g/dL Low 11.9 - 15.1 g/dL [facility] Immature granulocytes/100 WBC (Bld) 1 % High 0 [facility] Interpretation and review of laboratory results Abnormal [facility] Lymphocytes/100 WBC (Bld) 15 % Low 24 - 43 % [facility] MCH (RBC) [Entitic mass] 26.5 pg 25.2 - 33.5 pg [facility] MCHC (RBC) [Mass/Vol] 31.4 g/dL 28.4 - 34.8 g/dL [facility] MCV (RBC) [Entitic vol] 84.5 fL 82.6 - 102.9 fL [facility] Monocytes/100 WBC (Bld) 7 % 3 - 12 % [facility] NRBC Automated 0.0 0.0 per 100 WBC [facility] Platelet distribution width (Bld) [Ratio] 14.2 % 11.8 - 14.4 % [facility] Platelet mean volume (Bld) [Entitic vol] 11.9 fL 8.1 - 13.5 fL [facility] Platelets (Bld) [#/Vol] 259 10*3/uL [facility] RBC (Bld) [#/Vol] 3.88 10*6/uL Low 3.95 - 5.1 1 m/uL [facility] Segmented neutrophils/100 WBC (Bld) 76 % High 36 - 65 % [facility] Segs Absolute 9.01 High [facility] WBC (Bld) [#/Vol] 11.9 10*3/uL High [facility] CBC with Diffon 12-07-2021 Abs. Basophil 0.04 k/uL Normal 0.00-0.[address] [facility] Comment on above: Performed By: #### C DP #### [facility] [address] [place] [place] [address] Erecting Crane Operator: Mohamud Lucas MD Abs.Imm.Granulocyte 0.08 k/uL Normal 0.00-0.30 [facility] Comment on above: Performed By: #### C DP #### [facility] [address] [place], [facility] Erecting Crane Operator: Mohamud Lucas MD Abs.Neutrophil (Seg) 9.01 k/uL High 1.50-8.10 [facility] Comment on above: Performed By: #### C DP #### [facility] [address] [place], [facility] Erecting Crane Operator: Mohamud Lucas MD Basophils/100 WBC (Bld) 0 % Normal 0-2 [facility] Comment on above: Performed By: #### C DP #### [facility] [address] [place], [facility] Erecting Crane Operator: Mohamud Lucas MD Eosinophils (Bld) [#/Vol] 0.08 10*3/uL Normal 0.00-0.44 [facility] Comment on above: Performed By: #### C DP #### [facility] [address] [place] [place] [address] Erecting Crane Operator: Mohamud Lucas MD Eosinophils/100 WBC (Bld) 1 % Normal 1-4 [facility] Comment on above: Performed By: #### C DP #### [facility] [address] [place], [place] [phone] Erecting Crane Operator: Mohamud Lucas MD Erythrocyte distribution width (RBC) [Ratio] 14.2 % Normal 11.8-14.4 [facility] Comment on above: Performed By: #### C DP #### [facility] [address] [place] [address] [place]. [place], [place] [phone] Erecting Crane Operator: Mohamud Lucas MD Hematocrit (Bld) [Volume fraction] 32.8 % Low 36.3-47.1 [facility] Comment on above: Performed By: #### C DP #### [facility] [address] [place] [address] [place]. [place], [place] [phone] Erecting Crane Operator: Mohamud Lucas MD Hemoglobin (Bld) [Mass/Vol] 10.3 g/dL Low 11.9-15.1 [facility] Comment on above: Performed By: #### C DP #### [address] [place], [place] [phone] Erecting Crane Operator: Mohamud Lucas MD Immature granulocytes/100 WBC (Bld) 1 % High 0 [facility] Comment on above: Performed By: #### C DP #### [facility] [address] [place] [address] Dr. [place], [place] [phone] Erecting Crane Operator: Mohamud Lucas MD Lymphocytes (Bld) [#/Vol] 1.81 10*3/uL Normal 1.10-3.70 [facility] Comment on above: Performed By: #### C DP #### [address] [place], [place] [phone] Erecting Crane Operator: Mohamud Lucas MD Lymphocytes/100 WBC (Bld) 15 % Low 24-43 [facility] Comment on above: Performed By: #### C DP #### [facility] [address] [place] [address] Erecting Crane Operator: Mohamud Lucas MD MCH (RBC) [Entitic mass] 26.5 pg Normal 25.2-33.5 [facility] Comment on above: Performed By: #### C DP #### [facility] [address] [place], [place] [phone] Erecting Crane Operator: Mohamud Lucas MD MCHC (RBC) [Mass/Vol] 31.4 g/dL Normal 28.4-34.8 [facility] Comment on above: Performed By: #### C DP #### [facility] [address] [place] [address] Erecting Crane Operator: Mohamud Lucas MD MCV (RBC) [Entitic vol] 84.5 fL Normal 82.6-102.9 [facility] Comment on above: Performed By: #### C DP #### [facility] [address] [place], [place] [phone] Erecting Crane Operator: Mohamud Lucas MD Monocytes (Bld) [#/Vol] 0.88 10*3/uL Normal 0.10-1.20 [facility] Comment on above: Performed By: #### C DP #### [facility] [address] [place], [place] [phone] Erecting Crane Operator: Mohamud Lucas MD Monocytes/100 WBC (Bld) 7 % Normal 3-12 [facility] Comment on above: Performed By: #### C DP #### [facility] [address] [place], [place] [phone] Erecting Crane Operator: Mohamud Lucas MD Neutrophil (Seg) 76 % High 36-65 [facility] Comment on above: Performed By: #### C DP #### [facility] [address] [place], [place] [phone] Erecting Crane Operator: Mohamud Lucas MD NRBC Automated 0.0 per 100 WBC Normal 0.0 [facility] Comment on above: Performed By: #### C DP #### [facility] [address] [place] [address] Erecting Crane Operator: Mohamud Lucas MD Platelet mean volume (Bld) [Entitic vol] 11.9 fL Normal 8.1-13.5 [facility] Comment on above: Performed By: #### C DP #### [facility] [address] [place] [address] Erecting Crane Operator: Mohamud Lucas MD Platelets (Bld) [#/Vol] 259 10*3/uL Normal 138-453 [facility] Comment on above: Performed By: #### C DP #### [facility] [address] [place] [address] Erecting Crane Operator: Mohamud Lucas MD RBC (Bld) [#/Vol] 3.88 10*6/uL Low 3.95-5.11 [facility] Comment on above: Performed By: #### C DP #### [facility] [address] [place] [address] Erecting Crane Operator: Mohamud Lucas MD WBC (Bld) [#/Vol] 11.9 10*3/uL High 3.5-11.3 [facility] Comment on above: Performed By: #### C DP #### [facility] [address] [place] [address] Erecting Crane Operator: Mohamud Lucas MD DRUG SCREEN MULTI URINEon Amphetamine Screen, Ur Negative NEGATIVE [facility] Barbiturate Screen, Ur Negative NEGATIVE [facility] Benzodiazepine Screen, Urine Negative NEGATIVE [facility] Buprenorphine Urine Negative NEGATIVE [facility] Cannabinoid Scrn, Ur Negative NEGATIVE [facility] Cocaine Metabolite, Urine Negative NEGATIVE [facility] Methadone Screen, Urine Negative NEGATIVE [facility] Methamphetamine, Urine Negative NEGATIVE [facility] Opiates, Urine Negative NEGATIVE [facility] Oxycodone Screen, Ur Negative NEGATIVE [facility] Phencyclidine, Urine Negative NEGATIVE [facility] Propoxyphene, Urine Negative NEGATIVE [facility] Tricyclic Antidepressants, Urine Negative NEGATIVE [facility] Comment on above: Drug screen results are to be used for medical purposes only. All positive results are unconfirmed. Testing for employment or legal uses should be sent to a reference laboratory for confirmation. [facility] Drug Scr, Abuse, Uron 2021 Amphetamine(s),Ur Negative Normal NEG [facility] Comment on above: Performed By: #### D AU #### [facility] [address] [place] [address] [place] [address] Erecting Crane Operator: Mohamud Lucas MD Barbiturate(s),Ur Negative Normal NEG [facility] Comment on above: Performed By: #### D AU #### [facility] [address] [place], [facility]83 Erecting Crane Operator: Mohamud Lucas MD Benzodiazepine(s) Negative Normal NEG [facility] Comment on above: Performed By: #### D AU #### [facility] [address] [place] [address] Dr. [place], [facility]83 Erecting Crane Operator: Mohamud Lucas MD Buprenorphrine, Ur Negative Normal NEG [facility] Comment on above: Performed By: #### D AU #### [facility] [address] [place], [facility]83 Erecting Crane Operator: Mohamud Lucas MD Cannabinoid(s),Ur Negative Normal NEG [facility] Comment on above: Performed By: #### D AU #### [facility] [address] [place] [address] Erecting Crane Operator: Mohamud Lucas MD Cocaine Metabolite Negative Normal [facility] Comment on above: Performed By: #### D AU #### [facility] [address] [place], [place] [phone] Erecting Crane Operator: Mohamud Lucas MD Methadone Ql (U) Negative Normal NEG [facility] Comment on above: Performed By: #### D AU #### [facility] [address] [place], [place] [phone] Erecting Crane Operator: Mohamud Lucas MD Methamphetamine, Ur Negative Normal NEG [facility] Comment on above: Performed By: #### D AU #### [facility] [address] [place], [place] [phone] Erecting Crane Operator: Mohamud Lucas MD Opiate(s), Ur Negative Normal NEG [facility] Comment on above: Performed By: #### D AU #### [facility] [address] [place], [facility]83 Erecting Crane Operator: Mohamud Lucas MD Oxycodone, Urine Negative Normal NEG [facility] Comment on above: Performed By: #### D AU #### [facility] [address] [place], [facility]83 Erecting Crane Operator: Mohamud Lucas MD Phencyclidine, Ur Negative Normal [facility] Comment on above: Performed By: #### D AU #### [facility] [address] [place], [facility]83 Erecting Crane Operator: Mohamud Lucas MD Propoxyphene,Urine Negative Normal NEG [facility] Comment on above: Performed By: #### D AU #### [facility] [address] [place], [facility]83 Erecting Crane Operator: Mohamud Lucas MD Tricyclic antidepressants Screen Ql (U) Negative Normal [facility] Comment on above: Result Comment: Drug screen results are to be used for medical purposes only. All positive results are unconfirmed. Testing for employment or legal uses should be sent to a reference laboratory for confirmation. Performed By: #### D AU #### [facility] [address] [place] [address] [place] [address] Erecting Crane Operator: Mohamud Lucas MD Microscopic Urinalysison - [facility] Bacteria, UA 2+ Abnormal None [facility] Epithelial Cells UA 2 TO 5 [facility] Interpretation and review of laboratory results Abnormal [facility] RBC, UA 0 TO 2 [facility] WBC, UA 2 TO 5 [facility] Yeast, UA PRESENCE NOTED Abnormal None [facility] OPERATIVE REPORTon OPERATIVE REPORT [address] [address] OPERATIVE REPORT PATIENT NAME: ALTON DAVIS : 1990 MED REC NO: [id number] ROOM: 0208 ACCOUNT NO: [id number] ADMIT DATE: 12/07/2021 PROVIDER: Matt Light MD [...] section, low transverse uterine segment. ANESTHESIA: Epidural. [employer] FACULTY MEMBER: Maulik Del Toro. ESTIMATED BLOOD LOSS: 600 mL. COMPLICATIONS OF THE PROCEDURE: None. FINDINGS: A viable vigorous female infant in direct occiput posterior presentation with thick [...] was extended in a semilunar fashion with barker operator's fingers. head was elevated and turned. Enough fundal pressure was used to deliver the head and nares and oropharynx were vigorously suctioned of meconium fluid. Then the shoulders were delivered with some fundal pressure and infant was then readily delivered. Cord was clamped and cut. handed off to nursing attending the delivery. [...] a running imbricating interlocking fashion. A few [id number] sutures were placed along the central inferior [...] above that were mentioned. MATT LIGHT MD [id number] Doc#: [id number] CC: Maulik Del Toro [facility] Surgical Pathologyon 022 Surgical Pathology (NOTE) -- [...] SURGICAL PATHOLOGY CONSULTATION Patient Name: ALTON DAVIS [facility] Rec: [id number] Path Number: [id number] [employer] [facility] ANATOMIC PATHOLOGY [address] [place] [id number] [facility] Comment on above: Performed By: #### P PPVS #### [employer] [address] [place] [address] Erecting Crane Operator: Dhaval Rao MD BIOPHYSICAL PROFILE WO NON STRESS TESTINGon 12-07-2021 Radiology Study observation (narrative) [facility] [employer] Work Phone: Urinalysison 12-07-2021 Bilirubin Urine Negative NEGATIVE [facility] [employer] Color, UA Yellow Yellow [facility] Glucose, Ur Negative NEGATIVE [facility] Interpretation and review of laboratory results Abnormal [facility] Ketones Ql (U) Negative NEGATIVE [facility] Leukocyte esterase Test strip Ql (U) Negative NEGATIVE [facility] Nitrite, Urine Negative NEGATIVE [facility] pH, UA 6.0 [facility] [facility] Protein, UA Negative NEGATIVE [facility] Specific [place], UA >1.030 High [facility] Turbidity UA Clear Clear [facility] Urine Hgb 1+ Abnormal NEGATIVE [facility] Urobilinogen, Urine Normal Normal [facility] Urinalysis, Routineon 2021 Bilirubin, SemiQt,Ur Negative Normal NEG [facility] Comment on above: Performed By: #### U MICAO, UA #### [facility] [address] [place] [address] Erecting Crane Operator: Mohamud Lucas MD Blood, Urine 1+ Abnormal NEG [facility] Comment on above: Performed By: #### U MICAO, UA #### [facility] [address] [place], [place] [phone] Erecting Crane Operator: Mohamud Lucas MD Clarity (U) Clear Normal CLEAR [facility] Comment on above: Performed By: #### U MICAO, UA #### [facility] [address] [place], [place] [id number] Erecting Crane Operator: Mohamud Lucas MD Color (U) Yellow Normal YEL [facility] Comment on above: Performed By: #### U MICAO, UA #### [facility] [address] [place] [address] Erecting Crane Operator: Mohamud Lucas MD Glucose Ql (U) Negative Normal NEG [facility] Comment on above: Performed By: #### U MICAO, UA #### [facility] [address] [place] [address] Erecting Crane Operator: Mohamud Lucas MD Ketones Ql (U) Negative Normal NEG [facility] Comment on above: Performed By: #### U MICAO, UA #### [facility] [address] [place] [address] Erecting Crane Operator: Mohamud Lucas MD Leukocyte esterase Test strip Ql (U) Negative Normal NEG [facility] Comment on above: Performed By: #### U MICAO, UA #### [facility] [address] [place] [address] Erecting Crane Operator: Mohamud Lucas MD Nitrite,Ur Negative Normal NEG [facility] Comment on above: Performed By: #### U MICAO, UA #### [facility] [address] [place] [address] Dr[address] [place], [place] [phone] Erecting Crane Operator: Mohamud Lucas MD PH,Ur 6.0 Normal 5.0-9.0 [facility] Comment on above: Performed By: #### U MICAO, UA #### [facility] [address] [place] [address] [place] [address] Erecting Crane Operator: Mohamud Lucas MD Protein Ql (U) Negative Normal NEG [facility] Comment on above: Performed By: #### U MICAO, UA #### [facility] [address] [place] [address] [place] [address] Erecting Crane Operator: Mohamud Lucas MD Spec. [place],Ur >1.030 High 1.010-1.020 [facility] Comment on above: Performed By: #### U MICAO, UA #### [facility] [address] [place], [place] [id number] Erecting Crane Operator: Mohamud Lucas MD Urobilinogen,Ur Normal Normal NORM [facility] Comment on above: Performed By: #### U MICAO, UA #### [facility] [address] [place], [place] [phone] Erecting Crane Operator: Mohamud Lucas MD Urinalysis,Microon 2 ----- Normal [facility] Comment on above: Performed By: #### U SHAHNAZO, UA #### [facility] [address] [place] [address] [place] [address] Erecting Crane Operator: Mohamud Lucas MD Bacteria 2+ Abnormal NONE [facility] Comment on above: Performed By: #### U SHAHNAZO, UA #### [facility] [address] [place] [address] [place] [address] Erecting Crane Operator: Mohamud Lucas MD Epithelial cells LM Ql (Urine sed) 2 TO 5 Normal 0-25 [facility] Comment on above: Performed By: #### U SHAHNAZO, UA #### [facility] [address] [place] [address] [place] [address] Erecting Crane Operator: Mohamud Lucas MD Urine RBC's 0 TO 2 Normal 0-2 [facility] Comment on above: Performed By: #### U SHAHNAZO, UA #### [facility] [address] [place] [address] [place] [address] Erecting Crane Operator: Mohamud Lucas MD Urine WBC's 2 TO 5 Normal 0-5 [facility] Comment on above: Performed By: #### U SHAHNAZO, UA #### [address] [place] [address] Erecting Crane Operator: Mohamud Lucas MD Yeast PRESENCE NOTED Abnormal NONE [facility] Comment on above: Performed By: #### U MICAO, UA #### [facility] [address] [place] [address] [place] [address] Erecting Crane Operator: Mohamud Lucas MD US OB Growthon 11-29-2021 [...] by Param Garnett on 11/30/2021 0718 Normal [facility] Pulmonary Specialist GBS, External Resulton 11-10 GBS, External Result Positive [facility] Phone: [facility] Phone: Q - STREPTOCOCCUS,GROUP B CU LTUREon 11-10-2021 STREPTOCOCCUS, GROUP B CULTURE SEE NOTE Abnormal [facility] Specialist Comment on above: Order Comment: [facility] Testing performed at: [employer], [facility], [address] [place] [address], [address] [place] [address], [id number], Semiconductor Equipment Technician: David Whalen MD [facility] Collection Date/Time: [id number] [facility] Results Received Date/Time: [id number] [facility] Reported Date/Time: [id number] Result Comment: STRE PTOCOCCUS, GROUP B CULTURE Micro Number: [id number] Test Status: Final Specimen Source: Vaginal/anorectal Specimen [...] 5 [id number] #### [facility] [address] [place] [address] US OB Growthon 10-03-2021 US OB Growth [...] Anterior fundal Grade I Weight (g) by Zcoiijpwnl86.5 % * These measurements result in an [...] by Param Garnett on 10/04/2021 0920 Normal [facility] Pulmonary Specialist No Panel Informationon 09-22 ABO, External Result Negative [email or web address] Work Phone: Rh Factor, External Result Negative [email or web address] Work Phone: [email or web address] Work Phone: Rhogam, External Resultson 0 09-21-2021 [employer], External Result given Where Phone: [email or web address] Work Phone: Complete Blood Counton 09-20 Erythrocyte distribution width (RBC) [Ratio] 12.5 % Normal 11.0-15.0 [facility] Pulmonary Specialist Comment on above: Performed By: #### G GLU, CBC #### [facility] [address] [place], [place] [id number] Hematocrit (Bld) [Volume fraction] 32.7 % Low 35.0-47.0 [facility] Pulmonary Specialist Comment on above: Performed By: #### G GLU, CBC #### [facility] [address] [place], [place] [id number] Hemoglobin (Bld) [Mass/Vol] 10.7 g/dL Low 11.6-15.5 [facility] Pulmonary Specialist Comment on above: Performed By: #### G GLU, CBC #### [facility] [address] [place], [place] [id number] MCH (RBC) [Entitic mass] 30.1 pg Normal 27.0-33.0 [facility] Pulmonary Specialist Comment on above: Performed By: #### G GLU, CBC #### [facility] [address] [place], [place] [id number] MCHC (RBC) [Mass/Vol] 32.7 g/dL Normal 32.0-36.0 [facility] Pulmonary Specialist Comment on above: Performed By: #### G GLU, CBC #### [facility] [address] [place], [place] [id number] MCV (RBC) [Entitic vol] 92 fL Normal 80-100 [facility] Pulmonary Specialist Comment on above: Performed By: #### G GLU, CBC #### [facility] [address] [place], [place] [id number] Platelet mean volume (Bld) [Entitic vol] 10.80 fL Normal 7.50-12.50 [facility] Pulmonary Specialist Comment on above: Performed By: #### G GLU, CBC #### [facility] [address] [place], [place] [id number] Platelets (Bld) [#/Vol] 240 10*3/uL Normal 140-400 [facility] Pulmonary Specialist Comment on above: Performed By: #### G GLU, CBC #### [facility] [address] [place], [place] [id number] RBC (Bld) [#/Vol] 3.56 10*6/uL Low 3.90-5.20 [facility] Pulmonary Specialist Comment on above: Performed By: #### G GLU, CBC #### [facility] [address] [place], [place] [id number] RDW-SD 42.5 fL Normal 37.0-50.0 [facility] Pulmonary Specialist Comment on above: Performed By: #### G GLU, CBC #### [facility] [address] [place], [place] [id number] WBC (Bld) [#/Vol] 9.5 10*3/uL Normal 3.8-11.0 [facility] [place] Pulmonary Specialist Comment on above: Performed By: #### G GLU, CBC #### [facility] [address] [place], [place] [id number] Glucose - Gestational Screen on 09-20-2021 Glucose [Mass/Vol] 128 mg/dL Normal <135 [facility] Pul[facility] Specialist Comment on above: Result Comment: A va lue of 135 mg/dL or greater indicates the need for a full glucose tolerance test performed in the fasting state to determine if the patient has gestational diabetes. Performed By: #### G GLU, CBC #### [facility] [address] [place], [place] [id number] US OB Growthon 08-29-2021 US OB Growth [...] by Param Garnett on 09/02/2021 0850 Normal [facility] Pulmonary Specialist US OB 2nd/3rd Trimesteron OB 2nd/3rd Trimester FINDINGS: Comparison is made [...] 4.7 cm (20 weeks, 2 days) Head Cpzsgscgfxkxo01.5 cm (20 weeks, 0 days) Abdominal Adelxvvjygrlr65.2 cm (20 weeks, 3 days) Femur Length [...] by Param Garnett on 09/20/2021 0947 Normal [facility] Pulmonary Specialist C. Trachomatis, External Res [facility] 05-04-2021 C. Trachomatis, External Result Not detected [facility] Phone: HIV, External Resulton 05-04 HIV, External Result Non-Reactive Where Phone: Hepatitis B, External Result on 05-04-2021 Hep B, External Result Non-Reactive Where Phone: N. Gonorrhoeae, External Res ulton 05-04-2021 N. Gonorrhoeae, External Result Not detected Where Phone: No Panel Informationon 05-04 Where Phone: Where Phone: RPR, External Labon 05-04-20 RPR, External Result Non-Reactive Where Phone: Rubella Titer, External Resu lton 05-04-2021 Rubella Titer, External Result immune Where Phone: Cytologyon 06-05-2017 Cytology (NOTE)[id number] Y LABORATORIESCONSULTING PATHOLOGISTS [facility]RNA[facility] [id number] [place], [place] [phone] Fax: GYNECOLOGIC CYTOLOGY REPORTPatient Name: PARMINDER MASSEY#: [id number] #[id number]:1: Cervical material, (ThinPrep vial, Imaging-assisted review)Clinical HistoryNo LMP date givenContraceptive useR87.615 Unsatisfactory pap of cervixHigh Risk HPV DNA testing is requested if the diagnosis is ASC-USINTERPRETATIONCervi mariama material, (ThinPrep vial, Imaging-assisted review):Specimen Adequacy: Satisfactory for evaluation. - Endocervical/transformati on zone component present.Descriptive Diagnosis: Negative for intraepithelial lesion or malignancy.Shift in aniceto suggestive of bacterial vaginosis.Cytotechnologis t: SZCDC. Deca, CT(ASCP)Electronically Signed Outcd/06/14/2017 Normal [facility] DHEA Sulfateon 04-09-2017 DHEA Sulfate 107.0 ug/dL Normal 65-380 [facility] Comment on above: Result Comment: [facility] [employer] [address] [place] [address] Performed By: #### C YTC ####[address] [address] Cortisolon 04-06-2017 Cortisol 10.0 ug/dL Normal [facility] Comment on above: Result Comment: Georges isol Reference Range: AM 6.0-18.4 PM 2.7-10.[address] [address] Performed By: #### G ADILENE, CORTI, INSU, TSHX, PROL, FTST, DHES ####[address] [address] Glucoseon 04-06-2017 Glucose mass conc 83 mg/dL Normal 70-99 [facility] Comment on above: Result Comment: [facility] [employer] [address] [place] [address] Performed By: #### G ADILENE, CORTI, INSU, TSHX, PROL, FTST, DHES ####[address] [address] Insulinon 04-06-2017 Insulin 11.1 mU/L Normal [facility] Comment on above: Performed By: #### G ADILENE, CORTI, INSU, TSHX, PROL, FTST, DHES ####[address] [address] Reference Range Normal [facility] Comment on above: Result Comment: Fast in.6-24.930 min: 20-12756 min: 29-8890 min: 26-19756 min: 22-[address] [address] Performed By: #### G ADILENE, CORTI, INSU, TSHX, PROL, FTST, DHES ####[address] [address] Collection Info. NOT REPORTED Normal [facility] Comment on above: Performed By: #### G ADILENE, CORTI, INSU, TSHX, PROL, FTST, DHES ####[address] [address] Prolactinon 04-06-2017 Prolactin 35.67 ug/L High 4.79-23.30 [facility] Comment on above: Result Comment: The presence of macroprolactin may cause interference in female patients with various endocrinological diseases or during .[address] [address] Performed By: #### G ADILENE, CORTI, INSU, TSHX, PROL, FTST, DHES ####[address] [address] TSH w/reflex to FT4on 2016 Thyroid stimulating hormone (TSH) 1.54 m[IU]/L Normal 0.30-5.00 [facility] Comment on above: Result Comment: [address] [address] Performed By: #### G ADILENE, CORTI, INSU, TSHX, PROL, FTST, DHES ####[address] [address] Testosterone, Freeon 017 Sex Horm Bind Glob 133 nmol/L Normal 30-135 [facility] Comment on above: Performed By: #### G ADILENE, CORTI, INSU, TSHX, PROL, FTST, DHES ####[address] [address] Testosterone 27 ng/dL Normal 20-70 [facility] Comment on above: Performed By: #### G ADILENE, CORTI, INSU, TSHX, PROL, FTST, DHES ####[address] [place] [address] Testosterone,Free 1.7 pg/mL Normal 0.8-7.4 [facility] Comment on above: Result Comment: The concentration of free testosterone is derived from a mathematical expression based on the constant for the binding of testosterone to albumin and/or sex hormone binding globulin.[address] [id number] ([phone] Performed By: #### G ADILENE, CORTI, INSU, TSHX, PROL, FTST, DHES ####[address] [address] US PELVIS COMPLETEon 017 US PELVIS COMPLETE [...] by:MATT Batresigned by:Ethan Armstrong MD04/06/17Final result Normal [facility] Chlamydia/GC DNA, TPon 03-29 Chlamydia Probe, TP Negative Normal NEG [facility] Comment on above: Result Comment: CHLA MYDIA TRACHOMATIS DNA not detected by nucleic acid amplification. Performed By: #### C YTCGP ####[address] [address] Gonorrhea Probe, TP Negative Normal NEG [facility] Comment on above: Result Comment: NEIS SERIA GONORRHOEAE DNA not detected by nucleic acid amplification.[employer] [facility] [place] [address] Performed By: #### C YTCGP ####[address] [address] Cytologyon 03-28-2017 Cytology (NOTE)[id number] LABORATORIESCONSULTING PATHOLOGISTS CORPORATIONANATOMIC [id number] [place] [phone] Fax: GYNECOLOGIC CYTOLOGY REPORTPatient Name: PARMINDER MASSEY#: [id number] #[id number]:1: Cervical material, (ThinPrep vial, Imaging-assisted review)Clinical HistoryNo LMP date dcrsmQ87.4 Encounter for screening for malignant neoplasm of cervixHigh Risk HPV DNA testing is requested if the diagnosis is ASC-USINTERPRETATIONCervi mariama material, (ThinPrep vial, Imaging-assisted review):Specimen Adequacy: Unsatisfactory for evaluation.Specimen processed and examined but unsatisfactory for evaluation of epithelial abnormality due to: - Insufficient epithelial cell component, predominantly exudate.Descriptive Diagnosis: Interpretation not possible due to unsatisfactory specimenadequacy.Shift in aniceto suggestive of bacterial vaginosis.Cytotechnologis t: ALFREDA Izquierdo(ASCP)Electronically Signed Outmk/04/04/2017 Normal [facility] Vaginitis DNA Probeon 2016 Vaginitis DNA Probe [...] of vaginitis/vaginosis. Report Status FINAL 03/28/2017 Normal [facility] Comment on above: Performed By: #### V AGDNA ####[facility] [address] [place] [address] Vital Signs Date Time Vital Sign Value Performing Clinician Facility 07-23-2024 10:07-0500 Body mass index (BMI) [Ratio] 27.29 kg/m2 Maulik Floro CNM Work Phone: [facility] 07-23-2024 10:07-0500 Body weight 74.39 kg Maulik Floro CNM Work Phone: [facility] 07-23-2024 10:07-0500 Diastolic blood pressure 80 mm[Hg] Maulik Floro CNM Work Phone: [facility] 07-23-2024 10:07-0500 Systolic blood pressure 120 mm[Hg] Maulik Floro CNM Work Phone: [facility] 06-25-2024 10:32-0500 Body mass index (BMI) [Ratio] 25.79 kg/m2 Maulik Floro CNM Work Phone: [facility] 06-25-2024 10:32-0500 Body weight 70.31 kg Maulik Floro CNM Work Phone: [facility] 06-25-2024 10:32-0500 Diastolic blood pressure 80 mm[Hg] Maulik Floro CNM Work Phone: [facility] 06-25-2024 10:32-0500 Systolic blood pressure 120 mm[Hg] Maulik Floro CNM Work Phone: [facility] 05-21-2024 09:23-0500 Body mass index (BMI) [Ratio] 24.13 kg/m2 Maulik Floro CNM Work Phone: [facility] 05-21-2024 09:23-0500 Body weight 65.77 kg Maulik Floro CNM Work Phone: [facility] 05-21-2024 09:23-0500 Diastolic blood pressure 80 mm[Hg] Maulik Floro CNM Work Phone: [facility] 05-21-2024 09:23-0500 Systolic blood pressure 120 mm[Hg] Maulik Floro CNM Work Phone: [facility] 04-23-2024 09:26-0400 Body mass index (BMI) [Ratio] 22.63 kg/m2 Maulik Floro CNM Work Phone: [facility] 04-23-2024 09:26-0400 Body weight 61.69 kg Maulik Floro CNM Work Phone: [facility] 04-23-2024 09:26-0400 Diastolic blood pressure 70 mm[Hg] Maulik Floro CNM Work Phone: [facility] 04-23-2024 09:26-0400 Systolic blood pressure 112 mm[Hg] Maulik Floro CNM Work Phone: [facility] 03-19-2024 09:31-0400 Body mass index (BMI) [Ratio] 21.8 kg/m2 Maulik Floro CNM Work Phone: [facility] 03-19-2024 09:31-0400 Body weight 59.42 kg Maulik Floro CNM Work Phone: [facility] 03-19-2024 09:31-0400 Diastolic blood pressure 72 mm[Hg] Maulik Floro CNM Work Phone: [facility] 03-19-2024 09:31-0400 Systolic blood pressure 112 mm[Hg] Maulik Floro CNM Work Phone: [facility] 12-10-2021 07:07-0400 Body temperature 98.1 [degF] Rodo Simmons MANAGER [employer]ENSIC - CNM Work Phone: [facility] 12-10-2021 07:07-0400 Diastolic blood pressure 65 mm[Hg] Rodo Simmons APRN - CNM Work Phone: [facility] 12-10-2021 07:07-0400 Heart rate 81 /min Rodo Simmons MANAGER FORENSIC - CNM Work Phone: [email or web address] 12-10-2021 07:07-0400 Respiratory rate 18 /min Rodo Mason CNM Work Phone: [facility] [employer] 12-10-2021 07:07-0400 Systolic blood pressure 114 mm[Hg] Rodo Mason CNM Work Phone: [email or web address] 12-08-2021 00:34-0400 SaO2% (BldA) [Mass fraction] 94 % Rodo Mason CNM Work Phone: [email or web address] 12-07-2021 05:40-0400 Body height 165.1 cm Rodo Mason CNM Work Phone: [facility] [employer] 12-07-2021 05:40-0400 Body mass index (BMI) [Ratio] 30.12 kg/m2 Rodo Mason CNM Work Phone: [facility] [employer] 12-07-2021 05:40-0400 Body weight 82.1 kg Rodo Mason CNM Work Phone: [email or web address] Encounters Encounter Date Encounter Type Care Provider Facility Start: 07-27-2024 End: 07-27-2024 Clinisync Result Encounter Narayan Juan DO Work Phone: [facility] Unsolicited Start: 07-27-2024 End: 07-27-2024 Clinisync Result Encounter Narayan Juan DO Work Phone: [facility] Unsolicited Start: 07-23-2024 End: 07-23-2024 Bamboo flowsheet Maulik Zeeshan Floro CNM Work Phone: [facility] Start: 07-23-2024 End: 07-23-2024 Bamboo flowsheet Maulik Zeeshan Floro CNM Work Phone: [facility] Start: 07-23-2024 End: 07-23-2024 Subsequent care visit Maulik Del Toro CNM Work Phone: [facility] Comment on above: Encounter for superv ision of other normal , third trimester (Primary Dx); History of section Start: 06-25-2024 End: 06-25-2024 Bamboo flowsheet Maulik Zeeshan Leigho CNM Work Phone: [facility] Start: 06-25-2024 End: 06-25-2024 Bamboo flowsheet Maulik Zeeshan Leigho CNM Work Phone: [facility] Start: 06-25-2024 End: 06-25-2024 ambulatory MAULIK LEIGHO Not Available Start: 06-25-2024 End: 06-25-2024 Subsequent care visit Maulik Del Toro CNM Work Phone: [facility] Comment on above: Encounter for superv ision of other normal , third trimester (Primary Dx); History of section Start: 06-24-2024 End: 06-24-2024 Bamboo flowsheet Maulik Zeeshan Leigho CNM Work Phone: [facility] Start: 06-24-2024 End: 06-24-2024 Bamboo flowsheet Maulik Zeeshan Leigho CNM Work Phone: [facility] Start: 06-24-2024 End: 06-24-2024 ambulatory MAULIK L FLORO Not Available Start: 06-17-2024 End: 06-17-2024 Telephone encounter Maulik Leigho CNM Work Phone: [facility] Start: 06-05-2024 End: 06-05-2024 ambulatory MAULIK L FLORO Not Available Start: 05-21-2024 End: 05-21-2024 Bamboo flowsheet Maulik Zeeshan Floro CNM Work [...] ambulatory MAULIK DEL TORO Not Available Start: 01-29-2024 End: 01-29-2024 ambulatory MAULIK DEL TORO Not Available Start: 12-07-2021 End: 12-10-2021 Evaluation and management of inpatient RODO SHAW [facility] Start: 12-07-2021 End: 12-10-2021 Evaluation and management of inpatient Rodo Simmons MANAGER [employer] - CNM Work Phone: [facility] Labor and Delivery Comment on above: Third trimester preg corey Start: 06-24-2021 End: 06-24-2021 ambulatory ARINA DEL TORO Facility: Start: 06-06-2017 End: 06-06-2017 Ambulatory [facility] Start: 04-06-2017 End: 04-07-2017 Ambulatory [facility] Start: 03-28-2017 End: 03-29-2017 Ambulatory [facility] Procedures Date Procedure Procedure Detail Performing Clinician Start: 07-27-2024 ALL CBC WITH AUTO DIFF Narayan Juan DO Work Phone: Start: 12-08-2021 Blood count complete automated Maulik Del Toro MANAGER [employer] - CNM Work Phone: Start: 12-08-2021 RHO(D) IMMUNE GLOBUL IN, Maulik Leigho MANAGER [employer] - CNM Work Phone: Start: 12-07-2021 SURGICAL PATHOLOGY REPORT Matt Light MD Work Phone: Start: 12-07-2021 Blood count complete auto&auto difrntl wbc Rodo Shaw MANAGER [employer] - CNM Work Phone: Start: 12-07-2021 biophysical pr ofile w/o non-stress testing Rodo Lottie Simmons MANAGER [employer] - CNM Work Phone: Start: 12-07-2021 Drug tst prsmv instr mnt chem analyzers pr date Rodo Shaw MANAGER [employer] - CNM Work Phone: Start: 12-07-2021 Urinalysis microscop ic only Rodo Tafoya Troy MANAGER [employer] - [facility] Work Phone: Start: 12-07-2021 Urnls dip stick/tabl et rgnt auto w/o microscopy Rodo Simmons MANAGER [employer] - [facility] Work Phone: Start: 11-10-2021 GBS, EXTERNAL RESULT Az storical Provider Start: 09-22-2021 ABO, EXTERNAL RESULT Az storical Provider Start: 09-22-2021 RH FACTOR, EXTERNAL RESULT Historical Provider MD Start: 09-21-2021 RHOGAM, EXTERNAL RESULT Historical Provider MD Start: 05-04-2021 C. TRACHOMATIS, EXTE RNAL RESULT Historical Provider MD Start: 05-04-2021 HEPATITIS B, EXTERNA L RESULT Historical Provider MD Start: 05-04-2021 HIV, EXTERNAL RESULT [facility] Provider Start: 05-04-2021 N. GONORRHOEAE, EXTE RNAL RESULT Historical Provider MD Start: 05-04-2021 [facility] Start: 05-04-2021 RUBELLA TITER, EXTER NAL RESULT Historical Provider MD Start: 06-05-2017 Microscopic observat ion [Identifier] in Cervix by Cyto stain Rodo iSmmons MANAGER [employer] - [facility] Work Phone: Start: 04-06-2017 CORTISOL [...] section History of section Maulik Del Toro [facility] Work Phone: H/O: section History of section Maulik Del Toro CNM Work Phone: H/O: section History of section Maulik Del Toro CNNeal Work Phone: H/O: section History of section Maulik Del Toro CNM Work Phone: Plan of Treatment Date Care Activity Detail Author Start: 08-06-2024 End: 08-06-2024 Patient encounter procedure 08/06/2024 11:30 AM EST Routine [facility] [address] [place] [phone] Maulik Del Toro CNM [address] [place] [address] [facility] Start: 07-23-2024 End: 07-23-2024 Patient encounter procedure 07/23/2024 10:00 AM EST Routine [facility] [address] [place] [phone] Maulik Del Toro, CN [address] [place] [address] [facility] Start: 06-24-2024 End: 06-24-2024 Patient encounter procedure [facility] Comment on above: Arrived Start: 05-21-2024 End: 05-21-2024 Patient encounter procedure [facility] Comment on above: Arrived Start: 04-23-2024 End: 04-23-2024 Professional / ancillary services management 04/23/2024 10:00 AM EDT Ancillary Procedure [facility] [id number] [id number] [facility] Start: 04-23-2024 End: 04-23-2024 Patient encounter procedure [facility] Comment on above: Arrived Start: 03-19-2024 End: 03-19-2025 US for US OB 14+ weeks anatomy scan Imaging Routine related condition in second trimester Expected: 03/19/2024, Expires: 03/19/2025 [facility] [employer] Work Phone: Comment on above: Expected: 03/19/2024 , Expires: 03/19/2025 Start: 03-16-2024 Influenza vaccination Influenza Vacc ine (#1) [facility] Start: 03-04-2024 Screening for malign ant neoplasm of cervix [facility] Start: 03-16-2022 Influenza vaccination Flu vacc ine ([facility] Ended) [facility] Start: 2020 Screening for malign ant neoplasm of cervix [facility] Start: 06-05-2020 Screening for malign ant neoplasm of cervix Pap smear [facility] Start: 2009 DTaP/Tdap/Td vaccine (1 - Tdap) DTaP/Tdap/Td vaccine (1 - Tdap) [facility] Start: 2008 Hepatitis C screening Hepatitis C sc reen [facility] Start: 2005 HIV screening [facility] [employer] Start: 2002 Depression Screen Depression Screen [facility] Start: 1995 COVID-19 Vaccine (1) COVID-19 Vaccin e (1) [facility] Start: 1991 Varicella vaccine (1 of 2 - 2-dose childhood series) Varicella vaccine (1 of 2 - 2-dose childhood series) [facility] Nonrebreather mask oxygen Nonrebreather mask oxygen Respiratory Care Routine As directed - RT (PRN) until discontinued starting 12/07/2021 [email or web address] [facility] Phone: Comment on above: As directed - RT (ND N) until discontinued starting 12/07/2021 Oxygen therapy [[facility]] Initiate Oxygen Therapy Protocol Respiratory Care Routine As Needed until discontinued starting 12/07/2021 [email or web address] [facility] Phone: Comment on above: As Needed until disc ontinued starting 12/07/2021 RHOGAM RHOGAM POSTPAR MARCELINO [facility] [employer] Print 12/08/2021 7:15 AM EDT [email or web address] Work Phone: Spirometry panel Incentive drea metry Respiratory Care Routine Every 2hr while awake until discontinued starting 12/08/2021 Where Phone: Comment on above: Every 2hr while awak e until discontinued starting 12/08/2021 Immunizations Immunization Date Immunization Notes Care Provider Fa cili 12-07-2021 diphtheria, tetanus toxoids and acellular pertussis vaccine, unspecified formulation Rodo Simmons [employer] Work Phone: Where Phone: 12-07-2021 measles, mumps and rubella virus vaccine Rodo Simmons [employer] Work Phone: Where Phone: Payers Date Payer Category Payer Private Health Insurance [employer] [id number] 2022 Unknown [employer] [id number] 2022-Present [address] [place] [address] [id number] 2022 Unknown [id number] 2016 Unknown [id number] 1990 Unknown [id number] [id number]. 593 1990 Unknown [id number] 2.16.840.1.101148.3.579.2. 173 1990 Unknown [id number] 2.16.840.1.090873.3.579.2. 9 1990 Unknown [id number] 2.16.840.1.315257.3.579.2. 1258 1990 Unknown [id number] 2.16.840.1.103945.3.579.2. 1258 1990 Unknown [id number] 2.16.840.1.276251.3.579.2. 1258 1990 Unknown [id number] 2.16.840.1.292837.3.579.2. 1258 1990 Unknown [id number] 2.16.840.1.244263.3.579.2. 1258 1990 Unknown [id number] 2.16.840.1.776724.3.579.2. 1258 1990 Unknown [id number] 2.16.840.1.607860.3.579.2. 1258 1990 Unknown [id number] 2.16.840.1.535663.3.579.2. 1258 1990 Unknown [id number] 2.16.840.1.703109.3.579.2. 1258 1959 Unknown [id number] Social History Date Type Detail Facility Start: 03-28-2017 End: 06-20-2023 Tobacco smoking status TNIS Ex-smoker [facility] Phone: History of tobacco use Cigarette Smoker [facility] Phone: Start: 03-28-2017 End: 01-29-2024 Cigarettes smoked current (pack per day) - Reported 1 [facility] Phone: Start: 03-28-2017 End: 06-20-2023 Tobacco use and exposure Smokeless tobacco non-user Where Phone: Start: 12-07-2021 Alcohol intake Ex-drinker (finding) Where Phone: Start: 1990 Sex Assigned At Not on file [facility] Phone: Start: 11-27-2021 End: 12-07-2021 Exposure to SARS-CoV-2 (event) Not sure Where Phone: History of tobacco use Current smoker [facility] Start: 01-29-2024 Alcoholic beverage intake Lifetime non-drinker (finding) [facility] Start: 01-29-2024 Tobacco use panel [facility] Start: 05-21-2023 Alcohol Comment caffeine: 1-2 cups per day [facility] Start: 12-23-2023 [facility] Clinical Notes 12-10-2021 to 07-23-2024 Maulik Del Toro CNM - 07/23/2024 10:00 AM ESTBriseida Mann MA - 06/25/2024 10:30 AM Kyler Del Toro CNM - 06/25/2024 10:30 AM ESTTelephone Anni - Star Garcia - 06/17/2024 1:29 PM [...] a routine visit. documented in this encounter [facility] 06-25-2024 History of Present illness Narrative Subjective [...] a routine visit. documented in this encounter [facility] 06-17-2024 Telephone encounter Note Licha arciniega needs lab result that has her blood type on it and Demo sheet faxed to [phone] [facility] 06-17-2024 Miscellaneous Notes Licha arciniega needs lab result that has her blood type on it and Demo sheet faxed to [phone] documented in this encounter [facility] 05-21-2024 History of Present illness Narrative Subjective [...] a routine visit. documented in this encounter [facility] 04-23-2024 History of Present illness Narrative Subjective [...] a routine visit. documented in this encounter [facility] 03-19-2024 History of Present illness Narrative Subjective [...] a routine visit. documented in this encounter [facility] 12-10-2021 Hospital Discharge instructions Lorin Arias RN - 12/10/2021 Follow-up with your OB doctor as specified. [facility] OB Department phone: Chikis Del Toro, MSN, MANAGER [employer], CNM [place] [address] DIET Eat a well balanced diet focusing on foods high in fiber and protein. Drink plenty of fluids especially water. To avoid constipation you may take a mild stool softener as recommended by your doctor or [facility] [employer] [facility]. ACTIVITY Gradually increase your activity. Resume exercise regimen only after advice by your doctor or [facility]. Avoid lifting anything heavier than a gallon of milk for SIX weeks. Avoid driving until your doctor or [facility] has given their approval. Rise slowly from [...] and take a break. NEVER shake your infant. BLEEDING Vaginal bleeding will decrease in amount [...] medications as recommended by your doctor or [employer] for pain If you develop a warm, red, tender area on your breast or develop a fever contact your OB provider. For moms: If you become engorged, feeding may be more difficult or painful for 1-2 days. You may find it helpful to hand express some milk so that the can latch on more easily. While , continue to take your vitamins as directed by your doctor or [facility] [facility]. Refer to the booklet in the folder/binder for more information. If you feel you need more assistance or have questions, please call Vibha Crump IBCLC, community resource consultant, at or the OB department to [...] they become loose or soiled. If used, Maegan should be removed by your care provider. [...] in your calf. documented in this encounter BELIA GUERRERO [employer] Work Phone: 12-10-2021 History of Present illness [...] instructions Respiratory notified of impending delivery of infant. States they will be up shortly to [...] urine sample. documented in this encounter [facility] Phone: Evaluation note Diagnosis Uterine contractions- Primary Third trimester Term intolerance to labor, delivered, current hospitalization Abnormality in heart rate/rhythm, delivered, with or without mention of antepartum condition delivery delivered delivery, without mention of indication, delivered, with or without mention of antepartum condition documented in this encounter [facility] Phone: evaluation note* Diagnosis Encounter for supervision [...] Documents on File Type Date Recorded Patient Director Of Program Management Expl anation ACP-Advance Directive ACP-Power of Political Science Research Assistant Latest Code Status on File Code Status Date Activated Date Inactivated Comments Full Code 12/07/2021 11:34 PM Full Code 12/07/2021 5:30 AM 12/07/2021 11:33 PM Additional Source Comments INFORMATION SOURCE (unrecogn ized section and content) DATE CREATED AUTHOR 01/08/2018 [facility] DATE CREATED AUTHOR AUTHOR'S ORGANIZ ATION 12/02/2021 [facility] dical Specialist DATE CREATED AUTHOR AUTHOR'S ORGANIZ ATION 12/08/2021 [facility] DATE CREATED AUTHOR AUTHOR'S ORGANIZ ATION 01/15/2022 [facility] DATE CREATED AUTHOR AUTHOR'S ORGANIZ ATION 06/30/2024 [facility] dical Specialists EPIC Reason for Visit (unrecogniz ed section and content) Reason Comments Contractions Specialty Diagnoses / Procedures Referred By Yolis t Referred To Contact Diagnoses Uterine contractions Term intolerance to labor, delivered, current hospitalization Rodo Shaw, MANAGER [employer] - CNM [address] [place] [address] [facility] [address] [place] [address] Referral ID Status Reason Start Date Expiration Date Visits Re quested Visits Authorized [id number] 1 1 Ordered Prescriptions (unrec ognized section [...] Usha Murguia, NESS)2336 (Given - Provider: Daria Arce RN) 0900 (Due)2100 (Due) enoxaparin (LOVENOX) injection [...] 0030, STAT 0029 (Given - Provider: Lottie Maldonado, NESS) gentamicin (GARAMYCIN) 410.4 mg in dextrose 5 [...] Matt RN) 0806 (Given - Provider: Usha Murguia RN) 0900 (Due) rho(D) immune globulin (HYPERRHO S/D) injection 300 mcg 300 mcg, IntraMUSCular, ONCE, 1 dose, On Katarzyna 5/26/22 at 0000, 0900 (Due - Provider: Domitila Herzog RN) sertraline (ZOLOFT) tablet 25 mg 25 mg, Oral, DAILY, First dose on Sun12/08/21 at 1015, Until Discontinued 190 (Not Given - Provider: Sherry Matt RN - Reason: Other - Comment: pt reports that she takes med nightly.)2118 (Given - Provider: Daria Arce RN) 2099 (Due - Provider: Kaushik Lindsey [facility]) 2099 (Due - Provider: Kaushik Lindsey RP) sodium chloride flush 0.9 % injection 5-40 mL 5-40 mL, IntraVENous, EVERY 12 HOURS SCHEDULED (2 times per day), First dose on Sun12/08/21 at 0900, Until Discontinued, For Line Patency: [...] Midline or Central Line = 20 mL/lumen, 0959 (Not Given - Provider: Sherry Matt RN - Reason: IV Fluid Infusing)2099 (Due) 0900 (Due)2100 (Due) 09 (Due)2099 (Due) txbdvwz-updtad-dvorp pertussis (BOOSTRIX) injection 0.5 mL 0.5 mL, [...] Matt RN)1740 (Paused - Provider: Sherry Matt RN)1741 (Restarted - Provider: Sherry Matt RN)1913 (Rate/Dose [...] hours., 0018 (Given - Provider: Domitila Herzog RN)2121 (Given - Provider: Daria Arce, RN) 0418 (Given - Provider: Ena Gilmore, RN)1429 (Given - Provider: Nataliia York, NESS)2336 (Given - Provider: Daria Arce, NESS) carboprost (HEMABATE) injection 250 mcg 250 mcg, [...] Usha Murguia, RN)1816 (Given - Provider: Nataliia York RN) 0513 (Given - Provider: Lottie Maldonado RN)1400 (Given - Provider: Lorin Arias RN) ketorolac (TORADOL) injection 30 mg (CANCELED) Ketorolac [...] Domitila Herzog RN)1107 (Given - Provider: Sherry Matt RN)1709 (Given - Provider: Sherry Matt RN)2314 (Given [...] PRN, 1 dose, Starting on Sun12/07/21 at 2332, Until Discontinued, Post- Hemorrhage, Notify Physician prior to administration., Post-op nalbuphine (NUBAIN) injection 10 mg 10 mg, IntraVENous, EVERY 4 HOURS PRN, Starting on Sun12/07/21 at 2332, Until Discontinued, or itching, Post-op naloxone (NARCAN) injection 0.4 mg 0.4 mg, IntraVENous, PRN, Starting on Sun12/07/21 at 2332, Until Discontinued, Opioid Reversal, Post-op ondansetron (ZOFRAN) injection 4 mg 4 mg, IntraVENous, EVERY 6 HOURS PRN, Starting on Sun12/07/21 at 2332, Until Discontinued, Nausea, nausea, oxyCODONE (ROXICODONE) immediate [...] Oral, DAILY PRN, Starting on Sun12/07/21 at 2332, Until Discontinued, Constipation, simethicone (MYLICON) chewable tablet 80 mg 80 mg, Oral, EVERY 6 HOURS PRN, Starting on Sun12/07/21 at 2332, Until Discontinued, Cramping, Flatulence, 1743 (Given - Provider: Sherry Matt RN) sodium chloride flush 0.9 % injection 5-40 mL 5-40 mL, IntraVENous, PRN, Starting on Sun12/07/21 at 2332, Until Discontinued, Line Care, After every IV [...] BE BASED ON THE PRIMARY CLINICAL RECORDS. [employer] provides no warranty or guarantee of the accuracy or completeness of information in this document.
[2024-07-28] MEDS: ACETAMINOPHEN 500 MG TABLET 1000 MG PO (17:19)
[2024-07-28] MEDS: BETAMETHASONE ACE/BETAMETHASONE SOD PHOS 30 MG/5 ML 12 MG IM (20:10)
== END 2024-07-28 20:20 | disposition home or self-care (01) ==
PROVIDERS: Admitting Provider Obstetrics & Gynecology; PCP Midwife; Visit Provider Obstetrics & Gynecology
DX: O99.891 Other specified diseases and conditions complicating pregnancy (principal); R10.30 Lower abdominal pain, unspecified; N13.30 Unspecified hydronephrosis; O26.893 Other specified pregnancy related conditions, third trimester; Z3A.33 33 weeks gestation of pregnancy; Z67.11 Type A blood, Rh negative; O34.211 Maternal care for low transverse scar from previous cesarean delivery
CPT/HCPCS: 36415; 59025; 74176; 76705; 76815; 76819; 80076; 82150; 82565; 83690; 84520; 85025; 85384; 96372; 96374; G0378; G0379; J0690; J0702

== ENCOUNTER 2024-07-30 00:49 | Outpatient (OUT) | payer OTHER, SELFPAY ==
--- NOTE | 2024-07-30 | US_ITS ---
[address] [address] Patient Name: ALTON LILLY MRN: [facility]:[id number] date: 1990 Sex: F Assigned Patient Location: [facility] Current Patient Location: Accession/Order Number: [id number] Exam Date: 07/30/2024 09:32 Report Date: 07/30/2024 11:02 At the request of: JEAN DICKERSON Procedure: US OB BPP w non-stress EXAMINATION: US OB BPP w non-stress HISTORY: PRE-TERM LABOR COMPARISON: No relevant comparison available. TECHNIQUE: Ultrasound biophysical profile was performed in the radiology department. non-reactive stress testing was performed by nursing staff in the birthing center. FINDINGS: BREATHING MOVEMENTS: 2 GROSS BODY MOVEMENTS: 2 TONE: 2 QUALITATIVE AMNIOTIC FLUID VOLUME: 2 PRESENTATION: CEPHALIC HEART RATE: 130.43 bpm AMNIOTIC FLUID VOLUME: 18.8 cm GESTATIONAL AGE: 33 weeks 3 days US/US OB BPP w non-stress IMPRESSION: Total biophysical profile score: 8 Electronically authenticated by: MALIKA PLUMMER Date: 07/30/2024 11:02
--- OUTSIDE RECORDS SUMMARY | 2024-07-30 00:53 | XMS_ITS | CCD ---
Author Organization [facility] Care Team Providers Care [employer] Name Role Phone SONU GONZALEZ Unavailable Unavailable GONZALEZSONU K Unavailable Unavailable GONZALEZ SONU K Unavailable Unavailable GONZALEZ, SONU K Unavailable Unavailable FLORO, ARINA Primary [...] Propensity to adverse reactions to substance 12-07-2021 [facility] Medications Current Medications Medication Drug Class(es) Dates Sig (Normalized) Sig (Original) acetaminophen 500 mg oral tablet (2 sources) Start: 12-07-2021 acetaminophen (TYLENOL) tablet 1,000 mg Start: 12-07-2021 End: 12-07-2021 acetaminophen (TYLENOL) tabl et 650 mg calcium chloride 0.0014 meq/ml / potassium chloride 0.004 meq/ml / sodium chloride 0.103 meq/ml / sodium lactate 0.028 meq/ml injectable solution (4 sources) Start: 12-07-2021 End: 05-25-2022 lactated ringers infusion 1 ml carboprost 0.25 [...] Active docusate sodium 50 mg / sennosides, custodial 8.6 mg oral tablet (1 source) Start: [...] WITH AUTO DIFFon BASOPHILS ABSOLUTE AUTO 0 [facility] Basophils/100 WBC (Bld) 0.2 % 0.2 - 2.0 % [facility] Eosinophils/100 WBC (Bld) 0.2 % Low 0.9 - 7.0 % [facility] Erythrocyte distribution width (RBC) [Ratio] 12.6 % 11.0 - 15.0 % [facility] Hematocrit (Bld) [Volume fraction] 33.1 % Low 36.0 - 48.0 % [facility] Hemoglobin (Bld) [Mass/Vol] 11.1 g/dL Low 12.0 - 16.0 g/dL [facility] IMMATURE GRANULOCYTES ABS AUTO 0.16 High [facility] Immature granulocytes/100 WBC (Bld) 1.1 % High 0.0 - 0.5 % [facility] Interpretation and review of laboratory results Abnormal [facility] LYMPHOCYTES ABSOLUTE AUTO 1.5 [facility] Lymphocytes/100 WBC (Bld) 10.3 % Low 20.5 - 60.0 % [facility] MCH (RBC) [Entitic mass] 30.6 pg 26.7 - 34.0 pg [facility] MCHC (RBC) [Mass/Vol] 33.5 g/dL 29.9 - 35.2 g/dL [facility] MCV (RBC) [Entitic vol] 91.2 fL 81.0 - 99.0 fL [facility] MONOCYTES ABSOLUTE AUTO 0.9 High [facility] Monocytes/100 WBC (Bld) 6.3 % 1.7 - 12.0 % [facility] NEUTROPHILS ABSOLUTE AUTO 11.8 High [facility] Neutrophils/100 WBC (Bld) 81.9 % High 43.0 - 75.0 % [facility] Platelet mean volume (Bld) [Entitic vol] 10.2 fL 9.5 - 13.5 fL [facility] TBH EO # 0 [facility] TBH PLT 224 [facility] RBC 3.63 Low [facility] TB WBC 14.4 High [facility] US for pregnancyon TITLE OF EXAM: OB [...] report is generated using voice recognition reporting ([employer] Ge[employer]ience[employer]). On occasion PowerScribe erroneously drops words from [...] report is generated using voice recognition reporting (PowerScribe). On occasion PowerScribe erroneously drops words from the report or replaces the spoken word with similar sounding words. Please call with any questions/concerns regarding this report.* Dictated and transcribed 06/05/24dpd This report has been electronically signed and approved by the interpreting radiologist. [facility] US for pregnancyOrdered By: Yordan Duran on 06-06-2024 [facility] [employer] Work Phone: US OB LIMITED 1+ FETUSESon [...] report is generated using voice recognition reporting (Spring.me). On occasion Spring.me erroneously drops words from the report or replaces the spoken word with similar sounding words. Please call with any questions/concerns regarding this report.* Dictated and transcribed 06/05/24/dpd This report has been electronically signed and approved by the interpreting radiologist. Normal Not Available US for pregnancyon Radiology Study observation (narrative) [facility] US OB 14+ WEEKS ANATOMY SCAN on 04-23-2024 [...] abnormalities. 2. Normal growth. Dictated and transcribed 04/24/24dpd This report has been electronically signed and [...] 2.8 cm. Yolk sac diameter 0.3 cm. Sunray rump length is 1.5 cm. heart rate [...] PLATE. Mohamud Lucas M.D. Electronically Signed Out yanely12/09/2021 Clinical Information Operative Findings: PLACENTA Operation Performed: [...] SURGICAL PATHOLOGY CONSULTATION Patient Name: ALTON DAVIS Cj Rec: [id number] Path Number: [id number] [facility] ANATOMIC PATHOLOGY [address] [place] [address]. [place], [place] [address] [facility] BIOPHYSICAL PROFILE WO NON STRESS [...] Ajit Warner MD 12/09/21 Final result Normal [facility] Biophysical profile score 8/8. KUNAL 7.1. The findings were sent to the Radiology Results Communication Center at 10:15 am on 12/07/2021 to be communicated to a licensed caregiver. [facility] EXAMINATION: BIOPHYSICAL PROFILE WITHOUT [...] fluid index 7.1 with MVP 2.8 cm. [facility] Ajit Warner MD - [...] to be communicated to a licensed caregiver. [employer] Phone: BIOPHYSICAL PROFILE WO NON STRESS TESTINGOrdered By: Ajit Warner on 12-09-2021 [facility] [employer] Phone: CBCon 12-08-2021 Erythrocyte distribution width (RBC) [Ratio] 14.3 % Normal 11.8-14.4 [facility] Comment on above: Performed By: #### C BC #### [address] [place] [address] Nursing Clerk: Mohamud Lucas MD Hematocrit (Bld) [Volume fraction] 26.3 % Low 36.3-47.1 [facility] Comment on above: Performed By: #### C BC #### [facility] [address] [place] [address] [place] [address] Nursing Clerk: Mohamud Lucas MD Hemoglobin (Bld) [Mass/Vol] 8.5 g/dL Low 11.9-15.1 [facility] Comment on above: Performed By: #### C BC #### [address] [place] [address] Nursing Clerk: Mohamud Lucas MD MCH (RBC) [Entitic mass] 27.0 pg Normal 25.2-33.5 [facility] Comment on above: Performed By: #### C BC #### [facility] [address] [place], [place] [id number] Nursing Clerk: Mohamud Lucas MD MCHC (RBC) [Mass/Vol] 32.3 g/dL Normal 28.4-34.8 [facility] Comment on above: Performed By: #### C BC #### [facility] [address] [place], [place] [id number] Nursing Clerk: Mohamud Lucas MD MCV (RBC) [Entitic vol] 83.5 fL Normal 82.6-102.9 [facility] Comment on above: Performed By: #### C BC #### [address] [place], [place] [id number] Nursing Clerk: Mohamud Lucas MD NRBC Automated 0.0 per 100 WBC Normal 0.0 [facility] Comment on above: Performed By: #### C BC #### [address] [place], [place] [id number] Nursing Clerk: Mohamud Lucas MD Platelet mean volume (Bld) [Entitic vol] 11.1 fL Normal 8.1-13.5 [facility] Comment on above: Performed By: #### C BC #### [address] [place], [place] [id number] Nursing Clerk: Mohamud Lucas MD Platelets (Bld) [#/Vol] 219 10*3/uL Normal 138-453 [facility] Comment on above: Performed By: #### C BC #### [address] [place], [place] [id number] Nursing Clerk: Mohamud Lucas MD RBC (Bld) [#/Vol] 3.15 10*6/uL Low 3.95-5.11 [facility] Comment on above: Performed By: #### C BC #### [address] [place] [address] Nursing Clerk: Mohamud Lucas MD WBC (Bld) [#/Vol] 20.6 10*3/uL High 3.5-11.3 [facility] Comment on above: Performed By: #### C BC #### [facility] [address] [place] [address] Nursing Clerk: Mohamud Lucas MD Hematocrit (Bld) [Volume fraction] 26.3 % Low 36.3 - 47.1 % [facility] Hemoglobin.gastroin testinal spec 1 Ql (Stl) 8.5 g/dL Low 11.9 - 15.1 g/dL [facility] Interpretation and review of laboratory results Abnormal [facility] MCH (RBC) [Entitic mass] 27.0 pg 25.2 - 33.5 pg [facility] MCHC (RBC) [Mass/Vol] 32.3 g/dL 28.4 - 34.8 g/dL [facility] MCV (RBC) [Entitic vol] 83.5 fL 82.6 - 102.9 fL [facility] NRBC Automated 0.0 0.0 per 100 WBC [facility] Platelet distribution width (Bld) [Ratio] 14.3 % 11.8 - 14.4 % [facility] Platelet mean volume (Bld) [Entitic vol] 11.1 fL 8.1 - 13.5 fL [facility] Platelets (Bld) [#/Vol] 219 10*3/uL [facility] RBC (Bld) [#/Vol] 3.15 10*6/uL Low 3.95 - 5.1 1 m/uL [facility] WBC (Bld) [#/Vol] 20.6 10*3/uL High [facility] RhIg Workup (RhoGam)on 12-08 RhIg Workup (RhoGam) Blood Component Type MANUFACTURED PRODUCT Units Ordered 1 ABO/Rh(D) A NEGATIVE Antibody Screen NEGATIVE History Check NO PREVIOUS HISTORY Rhig Eligibility Patient Is A Candidate For Injection Eugenie NEGATIVE Du Antigen NOT TESTED Unit Number [id number] Blood Component Type RHIG Unit Division 00 Status of Unit REL FROM ALLOC Transfusion Status OK TO TRANSFUSE Normal [facility] Comment on above: Performed By: #### R HIGW #### [facility] [address] [place] [address] Nursing Clerk: Mohamud Lucas MD CBC auto differentialon 11-14 Absolute [facility]os # 0.08 [facility] Absolute Immature Granulocyte 0.08 [facility] Absolute Lymph # 1.81 [facility] Absolute [place] # 0.88 [facility] Basophils (Bld) [#/Vol] 0.04 10*3/uL [facility] Basophils/100 WBC (Bld) 0 % 0 - 2 % [facility] Eosinophils/100 WBC (Bld) 1 % 1 - 4 % [facility] Hematocrit (Bld) [Volume fraction] 32.8 % Low 36.3 - 47.1 % [facility] Hemoglobin.gastroin testinal spec 1 Ql (Stl) 10.3 g/dL Low 11.9 - 15.1 g/dL [facility] Immature granulocytes/100 WBC (Bld) 1 % High 0 [facility] Interpretation and review of laboratory results Abnormal [facility] Lymphocytes/100 WBC (Bld) 15 % Low 24 - 43 % [facility] MCH (RBC) [Entitic mass] 26.5 pg 25.2 - 33.5 pg [facility] MCHC (RBC) [Mass/Vol] 31.4 g/dL 28.4 - 34.8 g/dL [facility] MCV (RBC) [Entitic vol] 84.5 fL 82.6 - 102.9 fL [facility] Monocytes/100 WBC (Bld) 7 % 3 - 12 % [facility] NRBC Automated 0.0 0.0 per 100 WBC [facility] Platelet distribution width (Bld) [Ratio] 14.2 % 11.8 - 14.4 % [facility] Platelet mean volume (Bld) [Entitic vol] 11.9 fL 8.1 - 13.5 fL [facility] Platelets (Bld) [#/Vol] 259 10*3/uL [facility] RBC (Bld) [#/Vol] 3.88 10*6/uL Low 3.95 - 5.1 1 m/uL [facility] Segmented neutrophils/100 WBC (Bld) 76 % High 36 - 65 % [facility] Segs Absolute 9.01 High [facility] WBC (Bld) [#/Vol] 11.9 10*3/uL High [facility] CBC with Diffon 12-07-2021 Abs. Basophil 0.04 k/uL Normal 0.00-0.20 [facility] Comment on above: Performed By: #### C DP #### [facility] [address] [place] [address] [place] [address] Nursing Clerk: Mohamud Lucas MD Abs.Imm.Granulocyte 0.08 k/uL Normal 0.00-0.30 [facility] Comment on above: Performed By: #### C DP #### [facility] [address] [place] [address] [place] [address] Nursing Clerk: Mohamud Lucas MD Abs.Neutrophil (Seg) 9.01 k/uL High 1.50-8.10 [facility] Comment on above: Performed By: #### C DP #### [facility] [address] [place] [address] Dr. [place], [place] [id number] Nursing Clerk: Mohamud Lucas MD Basophils/100 WBC (Bld) 0 % Normal 0-2 [facility] Comment on above: Performed By: #### C DP #### [facility] [address] [place] [address] [place] [address] Nursing Clerk: Mohamud Lucas MD Eosinophils (Bld) [#/Vol] 0.08 10*3/uL Normal 0.00-0.44 [facility] Comment on above: Performed By: #### C DP #### [facility] [address] [place] [address] Dr. [place], [place] [id number] Nursing Clerk: Mohamud Lucas MD Eosinophils/100 WBC (Bld) 1 % Normal 1-4 [facility] Comment on above: Performed By: #### C DP #### [address] [place], [place] [id number] Nursing Clerk: Mohamud Lucas MD Erythrocyte distribution width (RBC) [Ratio] 14.2 % Normal 11.8-14.4 [facility] Comment on above: Performed By: #### C DP #### [address] [place], [place] [id number] Nursing Clerk: Mohamud Lucas MD Hematocrit (Bld) [Volume fraction] 32.8 % Low 36.3-47.1 [facility] Comment on above: Performed By: #### C DP #### [address] [place], [place] [id number] Nursing Clerk: Mohamud Lucas MD Hemoglobin (Bld) [Mass/Vol] 10.3 g/dL Low 11.9-15.1 [facility] Comment on above: Performed By: #### C DP #### [address] [place], [place] [id number] Nursing Clerk: Mohamud Lucas MD Immature granulocytes/100 WBC (Bld) 1 % High 0 [facility] Comment on above: Performed By: #### C DP #### [facility] [address] [place] [address] [place]. [place], [place] [id number] Nursing Clerk: Mohamud Lucas MD Lymphocytes (Bld) [#/Vol] 1.81 10*3/uL Normal 1.10-3.70 [facility] Comment on above: Performed By: #### C DP #### [facility] [address] [place] [address] [place]. [place], [place] [id number] Nursing Clerk: Mohamud Lucas MD Lymphocytes/100 WBC (Bld) 15 % Low 24-43 [facility] Comment on above: Performed By: #### C DP #### [facility] [address] [place], [place] [id number] Nursing Clerk: Mohamud Lucas MD MCH (RBC) [Entitic mass] 26.5 pg Normal 25.2-33.5 [facility] Comment on above: Performed By: #### C DP #### [facility] [address] [place], [facility]83 Nursing Clerk: Mohamud Lucas MD MCHC (RBC) [Mass/Vol] 31.4 g/dL Normal 28.4-34.8 [facility] Comment on above: Performed By: #### C DP #### [facility] [address] [place], [facility]83 Nursing Clerk: Mohamud Lucas MD MCV (RBC) [Entitic vol] 84.5 fL Normal 82.6-102.9 [facility] Comment on above: Performed By: #### C DP #### [facility] [address] [place], [place] [id number] Nursing Clerk: Mohamud Lucas MD Monocytes (Bld) [#/Vol] 0.88 10*3/uL Normal 0.10-1.20 [facility] Comment on above: Performed By: #### C DP #### [facility] [address] [place], [place] [phone] Nursing Clerk: Mohamud Lucas MD Monocytes/100 WBC (Bld) 7 % Normal 3-12 [facility] Comment on above: Performed By: #### C DP #### [facility] [address] [place] [address] Nursing Clerk: Mohamud Lucas MD Neutrophil (Seg) 76 % High 36-65 [facility] Comment on above: Performed By: #### C DP #### [facility] [address] [place], [facility]83 Nursing Clerk: Mohamud uLcas MD NRBC Automated 0.0 per 100 WBC Normal 0.0 [facility] Comment on above: Performed By: #### C DP #### [facility] [address] [place], [facility]83 Nursing Clerk: Mohamud Lucas MD Platelet mean volume (Bld) [Entitic vol] 11.9 fL Normal 8.1-13.5 [facility] Comment on above: Performed By: #### C DP #### [facility] [address] [place], [facility]83 Nursing Clerk: Mohamud Lucas MD Platelets (Bld) [#/Vol] 259 10*3/uL Normal 138-453 [facility] Comment on above: Performed By: #### C DP #### [facility] [address] [place] [address] Dr. [place], [facility]83 Nursing Clerk: Mohamud Lucas MD RBC (Bld) [#/Vol] 3.88 10*6/uL Low 3.95-5.11 [facility] Comment on above: Performed By: #### C DP #### [facility] [address] [place] [address] Dr. [place], [facility]83 Nursing Clerk: Mohamud Lucas MD WBC (Bld) [#/Vol] 11.9 10*3/uL High 3.5-11.3 [facility] Comment on above: Performed By: #### C DP #### [facility] [address] [place], [facility]83 Nursing Clerk: Mohamud Lucas MD DRUG SCREEN MULTI URINEon Amphetamine Screen, Ur Negative NEGATIVE [facility] Barbiturate Screen, Ur Negative NEGATIVE [facility] Benzodiazepine Screen, Urine Negative NEGATIVE [facility] Buprenorphine Urine Negative NEGATIVE [facility] Cannabinoid Scrn, Ur Negative NEGATIVE [facility] Cocaine Metabolite, Urine Negative NEGATIVE [facility] Methadone Screen, Urine Negative NEGATIVE [facility] Methamphetamine, Urine Negative NEGATIVE [facility] Opiates, Urine Negative NEGATIVE [facility] Oxycodone Screen, Ur Negative NEGATIVE [facility] Phencyclidine, Urine Negative NEGATIVE [facility] Propoxyphene, Urine Negative NEGATIVE [facility] Tricyclic Antidepressants, Urine Negative NEGATIVE [facility] Comment on above: Drug screen results are to be used for medical purposes only. All positive results are unconfirmed. Testing for employment or legal uses should be sent to a reference laboratory for confirmation. [facility] Drug Scr, Abuse, Uron 2021 Amphetamine(s),Ur Negative Normal NEG [facility] Comment on above: Performed By: #### D AU #### [facility] [address] [place] [address] [place] [address] Nursing Clerk: Mohamud Lucas MD Barbiturate(s),Ur Negative Normal NEG [facility] Comment on above: Performed By: #### D AU #### [facility] [address] [place], [facility]83 Nursing Clerk: Mohamud Lucas MD Benzodiazepine(s) Negative Normal [facility] Comment on above: Performed By: #### D AU #### [facility] [address] [place] [address] Dr. [place], [facility]83 Nursing Clerk: Mohamud Lucas MD Buprenorphrine, Ur Negative Normal NEG [facility] Comment on above: Performed By: #### D AU #### [facility] [address] [place], [facility]83 Nursing Clerk: Mohamud Lucas MD Cannabinoid(s),Ur Negative Normal NEG [facility] Comment on above: Performed By: #### D AU #### [facility] [address] [place] [address] Nursing Clerk: Mohamud Lucas MD Cocaine Metabolite Negative Normal [facility] Comment on above: Performed By: #### D AU #### [facility] [address] [place], [place] [id number] Nursing Clerk: Mohamud Lucas MD Methadone Ql (U) Negative Normal NEG [facility] Comment on above: Performed By: #### D AU #### [facility] [address] [place] [address] Nursing Clerk: Mohamud Lucas MD Methamphetamine, Ur Negative Normal NEG [facility] Comment on above: Performed By: #### D AU #### [facility] [address] [place] [address] Nursing Clerk: Mohamud Lucas MD Opiate(s), Ur Negative Normal NEG [facility] Comment on above: Performed By: #### D AU #### [facility] [address] [place], [facility]83 Nursing Clerk: Mohamud Lucas MD Oxycodone, Urine Negative Normal NEG [facility] Comment on above: Performed By: #### D AU #### [facility] [address] [place] [address] Dr. [place], [facility]83 Nursing Clerk: Mohamud Lucas MD Phencyclidine, Ur Negative Normal [facility] Comment on above: Performed By: #### D AU #### [facility] [address] [place], [facility]83 Nursing Clerk: Mohmaud Lucas MD Propoxyphene,Urine Negative Normal NEG [facility] Comment on above: Performed By: #### D AU #### [facility] [address] [place] [address] Nursing Clerk: Mohamud Lucas MD Tricyclic antidepressants Screen Ql (U) Negative Normal [facility] Comment on above: Result Comment: Drug screen results are to be used for medical purposes only. All positive results are unconfirmed. Testing for employment or legal uses should be sent to a reference laboratory for confirmation. Performed By: #### D AU #### [address] [place] [address] Nursing Clerk: Mohamud Lucas MD Microscopic Urinalysison - [facility] Bacteria, UA 2+ Abnormal None [facility] Epithelial Cells UA 2 TO 5 [facility] Interpretation and review of laboratory results Abnormal [facility] RBC, UA 0 TO 2 [facility] WBC, UA 2 TO 5 [facility] Yeast, UA PRESENCE NOTED Abnormal None [facility] OPERATIVE REPORTon OPERATIVE REPORT [address] [id number] OPERATIVE REPORT PATIENT NAME: ALTON DAVIS : 1990 MED REC NO: [id number] ROOM: [id number] ACCOUNT NO: [id number] ADMIT DATE: 12/07/2021 PROVIDER: Matt Light MD [...] section, low transverse uterine segment. ANESTHESIA: Epidural. CO CHAIRMAN: Maulik Del Toro. 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 head was elevated and turned. Enough [...] a running imbricating interlocking fashion. A few [id number] sutures were placed along the central inferior [...] were mentioned. MATT LIGHT MD [id number] Doc#: [id number] CC: Maulik Del Toro [facility] Surgical Pathologyon 022 Surgical Pathology (NOTE) [...] SURGICAL PATHOLOGY CONSULTATION Patient Name: ALTON DAVIS [facility] Rec: [id number] Path Number: [id number] [facility] ANATOMIC PATHOLOGY [address] [place] [id number] [facility] Comment on above: Performed By: #### P PPVS #### [employer] [address] [place] [address] Nursing Clerk: Dhaval Rao MD BIOPHYSICAL PROFILE WO NON STRESS TESTINGon 12-07-2021 Radiology Study observation (narrative) [employer] Work Phone: Urinalysison 12-07-2021 Bilirubin Urine Negative NEGATIVE [employer] [facility] [employer] 911 Color, UA Yellow Yellow [facility] [employer] Glucose, Ur Negative NEGATIVE [facility] Interpretation and review of laboratory results Abnormal [facility] Ketones Ql (U) Negative NEGATIVE [facility] Leukocyte esterase Test strip Ql (U) Negative NEGATIVE [facility] Nitrite, Urine Negative NEGATIVE [facility] pH, UA 6.0 [facility] Protein, UA Negative NEGATIVE [facility] Specific Childress, UA >1.030 High [facility] Turbidity UA Clear Clear [facility] Urine Hgb 1+ Abnormal NEGATIVE [facility] Urobilinogen, Urine Normal Normal [facility] Urinalysis, Routineon 2021 Bilirubin, SemiQt,Ur Negative Normal NEG [facility] Comment on above: Performed By: #### U MICAO, UA #### [facility] [address] [place], [place] [id number] Nursing Clerk: Mohamud Lucas MD Blood, Urine 1+ Abnormal NEG [facility] Comment on above: Performed By: #### U MICAO, UA #### [facility] [address] [place], [facility]83 Nursing Clerk: Mohamud Lucas MD Clarity (U) Clear Normal CLEAR [facility] Comment on above: Performed By: #### U MICAO, UA #### [facility] [address] [place], [facility]83 Nursing Clerk: Mohamud Lucas MD Color (U) Yellow Normal YEL [facility] Comment on above: Performed By: #### U MICAO, UA #### [facility] [address] [place] [address] Nursing Clerk: Mohamud Lucas MD Glucose Ql (U) Negative Normal [facility] Comment on above: Performed By: #### U MICAO, UA #### [facility] [address] [place] [address] Nursing Clerk: Mohamud Lucas MD Ketones Ql (U) Negative Normal NEG [facility] in Hospital Comment on above: Performed By: #### U MICAO, UA #### [facility] [address] [place] [address] Nursing Clerk: Mohamud Lucas MD Leukocyte esterase Test strip Ql (U) Negative Normal NEG [facility] Comment on above: Performed By: #### U MICAO, UA #### [facility] [address] [place] [address] Nursing Clerk: Mohamud Lucas MD Nitrite,Ur Negative Normal NEG [facility] Comment on above: Performed By: #### U MICAO, UA #### [facility] [address] [place] [address] [place] [address] Nursing Clerk: Mohaumd Lucas MD PH,Ur 6.0 Normal 5.0-9.0 [facility] Comment on above: Performed By: #### U MICAO, UA #### [facility] [address] [place] [address] [place] [address] Nursing Clerk: Mohamud Lucas MD Protein Ql (U) Negative Normal NEG [facility] in Hospital Comment on above: Performed By: #### U MICAO, UA #### [facility] [address] [place] [address] [place] [address] Nursing Clerk: Mohamud Lucas MD Spec. Childress,Ur >1.030 High 1.010-1.020 [facility] Comment on above: Performed By: #### U MICAO, UA #### [facility] [address] [place], [place] [address] Nursing Clerk: Mohamud Lucas MD Urobilinogen,Ur Normal Normal NORM [facility] Comment on above: Performed By: #### U MICAO, UA #### [facility] [address] [place], [place] [address] Nursing Clerk: Mohamud Lucas MD Urinalysis,Microon 05-25-202 2 ----- Normal [facility] Comment on above: Performed By: #### U SHAHNAZO, UA #### [facility] [address] [place] [address] Nursing Clerk: Mohamud Lucas MD Bacteria 2+ Abnormal NONE [facility] Comment on above: Performed By: #### U SHAHNAZO, UA #### [facility] [address] [place] [address] Nursing Clerk: Mohamud Lucas MD Epithelial cells LM Ql (Urine sed) 2 TO 5 Normal 0-25 [facility] Comment on above: Performed By: #### U SHAHNAZO, UA #### [facility] [address] [place] [address] [place] [address] Nursing Clerk: Mohamud Lucas MD Urine RBC's 0 TO 2 Normal 0-2 [facility] Comment on above: Performed By: #### U MICAO, UA #### [facility] [address] [place] [address] [place], [place] [id number] Nursing Clerk: Mohamud Lucas MD Urine WBC's 2 TO 5 Normal 0-5 [facility] Comment on above: Performed By: #### U MICAO, UA #### [facility] [address] [place] [address] [place] [address] Nursing Clerk: Mohamud Lucas MD Yeast PRESENCE NOTED Abnormal [facility] Comment on above: Performed By: #### U MICAO, UA #### [facility] [address] [place] [address] Nursing Clerk: Mohamud Lucas MD US OB Growthon 11-29-2021 [...] by Param Garnett on 11/30/2021 0718 Normal [facility] [employer] GBS, External Resulton 11-10 GBS, External Result Positive [facility] [employer] Phone: [facility] [employer] Phone: Q - STREPTOCOCCUS,GROUP B CU LTUREon 11-10-2021 STREPTOCOCCUS, GROUP B CULTURE SEE NOTE Abnormal [facility] [employer] Comment on above: Order Comment: [facility] Testing performed at: [facility], [address] [place] [address], [address] [place] [address], [id number], It Systems Engineer: David Whalen MD [facility] Collection Date/Time: [id number] [facility] Results Received Date/Time: [id number] [facility] Reported Date/Time: [id number] Result Comment: STRE PTOCOCCUS, GROUP B CULTURE Micro Number: [id number] Test Status: Final Specimen Source: Vaginal/anorectal Specimen [...] 5 827W #### [facility] [address] [place] [address] US OB Growthon 10-03-2021 US OB Growth [...] Anterior fundal Grade I Weight (g) by Wbmbbvltpb90.5 % * These measurements result in an [...] by Param Garnett on 10/04/2021 0920 Normal [facility] [employer] No Panel Informationon 09-22 ABO, External Result Negative [employer] Work Phone: Rh Factor, External Result Negative [employer] Work Phone: [employer] Work Phone: Rhogam, External Resultson 0 09-21-2021 [employer], External Result given [employer] Work Phone: [employer] Work Phone: Complete Blood Counton 09-20 Erythrocyte distribution width (RBC) [Ratio] 12.5 % Normal 11.0-15.0 [facility] [employer] Comment on above: Performed By: #### G GLU, CBC #### [facility] [address] [place], [place] [id number] Hematocrit (Bld) [Volume fraction] 32.7 % Low 35.0-47.0 [facility] [employer] Comment on above: Performed By: #### G GLU, CBC #### [facility] [address] [place], [place] [id number] Hemoglobin (Bld) [Mass/Vol] 10.7 g/dL Low 11.6-15.5 [facility] Specialist Comment on above: Performed By: #### G GLU, CBC #### [facility] [address] [place], [place] [id number] MCH (RBC) [Entitic mass] 30.1 pg Normal 27.0-33.0 [facility] [employer] Comment on above: Performed By: #### G GLU, CBC #### [facility] [address] [place], [place] [id number] MCHC (RBC) [Mass/Vol] 32.7 g/dL Normal 32.0-36.0 [facility] [employer] Comment on above: Performed By: #### G GLU, CBC #### [facility] [address] [place], [place] [id number] MCV (RBC) [Entitic vol] 92 fL Normal 80-100 [facility] [employer] Comment on above: Performed By: #### G GLU, CBC #### [facility] [address] [place], [place] [id number] Platelet mean volume (Bld) [Entitic vol] 10.80 fL Normal 7.50-12.50 [facility] [employer] Comment on above: Performed By: #### G GLU, CBC #### [facility] [address] [place], [place] [id number] Platelets (Bld) [#/Vol] 240 10*3/uL Normal 140-400 [facility] [employer] Comment on above: Performed By: #### G GLU, CBC #### [facility] [address] [place], [place] [id number] RBC (Bld) [#/Vol] 3.56 10*6/uL Low 3.90-5.20 [facility] [employer] Comment on above: Performed By: #### G GLU, CBC #### [facility] [address] [place], [place] [id number] RDW-SD 42.5 fL Normal 37.0-50.0 [facility] Comment on above: Performed By: #### G GLU, CBC #### [facility] [address] [place], [place] [id number] WBC (Bld) [#/Vol] 9.5 10*3/uL Normal 3.8-11.0 [facility] [place] [employer] Comment on above: Performed By: #### G GLU, CBC #### [facility] [address] [place], [place] [id number] Glucose - Gestational Screen on 09-20-2021 Glucose [Mass/Vol] 128 mg/dL Normal <135 [facility] [employer] Comment on above: Result Comment: A va lue of 135 mg/dL or greater indicates the need for a full glucose tolerance test performed in the fasting state to determine if the patient has gestational diabetes. Performed By: #### G GLU, CBC #### [facility] [address] [place], [place] [id number] US OB Growthon 08-29-2021 OB Growth FINDINGS: Comparison made with prior [...] by Param Garnett on 09/02/2021 0850 Normal [facility] [employer] US OB 2nd/3rd Trimesteron OB 2nd/3rd Trimester [...] 4.7 cm (20 weeks, 2 days) Head Pcsudtgsifjeg02.5 cm (20 weeks, 0 days) Abdominal Shybdqsjkqdid89.2 cm (20 weeks, 3 days) Femur Length [...] by Param Garnett on 09/20/2021 0947 Normal [facility] [employer] C. Trachomatis, External Res [facility] 05-04-2021 C. Trachomatis, External Result Not detected [facility] [employer] Phone: HIV, External Resulton 05-04 HIV, External Result Non-Reactive [employer] Phone: Hepatitis B, External Result on 05-04-2021 Hep B, External Result Non-Reactive [employer] Phone: N. Gonorrhoeae, External Res ulton 05-04-2021 N. Gonorrhoeae, External Result Not detected [employer] Phone: No Panel Informationon 05-04 [employer] Phone: [employer] Phone: RPR, External Labon 05-04-20 RPR, External Result Non-Reactive [employer] Phone: Rubella Titer, External Resu lton 05-04-2021 Rubella Titer, External Result immune [employer] Phone: Cytologyon 06-05-2017 Cytology (NOTE)[id number] Y LABORATORIESCONSULTING PATHOLOGISTS NEMOU[facility] FOUNDATIONANATOMIC [id number] [place] [address]. [place], [place] [address] Fax: GYNECOLOGIC CYTOLOGY REPORTPatient Name: PARMINDER MASSEY#: [id number] #[id number]:1: Cervical material, (ThinPrep vial, Imaging-assisted review)Clinical HistoryNo LMP date givenContraceptive useR87.615 Unsatisfactory pap of cervixHigh Risk HPV DNA testing is requested if the diagnosis is ASC-USINTERPRETATIONCervi mariama material, (ThinPrep vial, Imaging-assisted review):Specimen Adequacy: Satisfactory for evaluation. - Endocervical/transformati on zone component present.Descriptive Diagnosis: Negative for intraepithelial lesion or malignancy.Shift in aniecto suggestive of bacterial vaginosis.Cytotechnologis t: HIC. Deca, CT(ASCP)Electronically Signed Outcd/06/14/2017 Normal [facility] DHEA Sulfateon 04-09-2017 DHEA Sulfate 107.0 ug/dL Normal 65-380 [facility] Comment on above: Result Comment: [facility] [employer] [address] [place] [address] Performed By: #### C YTCGP ####[address] [address] Cortisolon 04-06-2017 Cortisol 10.0 ug/dL Normal [facility] Comment on above: Result Comment: Georges isol Reference Range: AM 6.0-18.4 PM 2.7-10.[address] [address] Performed By: #### G ADILENE, CORTI, INSU, TSHX, PROL, FTST, DHES ####[address] [address] Glucoseon 04-06-2017 Glucose mass conc 83 mg/dL Normal 70-99 [facility] Comment on above: Result Comment: [facility] [employer] [address] [place] [address] Performed By: #### G ADILENE, CORTI, INSU, TSHX, PROL, FTST, DHES ####[address] [address] Insulinon 04-06-2017 Insulin 11.1 mU/L Normal [facility] Comment on above: Performed By: #### G ADILENE, CORTI, INSU, TSHX, PROL, FTST, DHES ####[address] [address] Reference Range Normal [facility] Comment on above: Result Comment: Fast in.6-24.930 min: 20-35638 min: 29-8890 min: 26-81006 min: 22-[address] [address] Performed By: #### G ADILENE, CORTI, INSU, TSHX, PROL, FTST, DHES ####[address] [address] Collection Info. NOT REPORTED Normal [facility] Comment on above: Performed By: #### G ADILENE, CORTI, INSU, TSHX, PROL, FTST, DHES ####[address] [address] Prolactinon 04-06-2017 Prolactin 35.67 ug/L High 4.79-23.30 [facility] Comment on above: Result Comment: The presence of macroprolactin may cause interference in female patients with various endocrinological diseases or during .[address] [address] Performed By: #### G ADILENE, CORTI, INSU, TSHX, PROL, FTST, DHES ####[place] [address] TSH w/reflex to FT4on 2016 Thyroid stimulating hormone (TSH) 1.54 m[IU]/L Normal 0.30-5.00 [facility] Comment on above: Result Comment: [address] [address] Performed By: #### G ADILENE, CORTI, INSU, TSHX, PROL, FTST, DHES ####[place] [address] Testosterone, Freeon 017 Sex Horm Bind Glob 133 nmol/L Normal 30-135 [facility] Comment on above: Performed By: #### G ADILENE, CORTI, INSU, TSHX, PROL, FTST, DHES ####[address] [address] Testosterone 27 ng/dL Normal 20-70 [facility] Comment on above: Performed By: #### G ADILENE, CORTI, INSU, TSHX, PROL, FTST, DHES ####[address] [place] [address] Testosterone,Free 1.7 pg/mL Normal 0.8-7.4 [facility] Comment on above: Result Comment: The concentration of free testosterone is derived from a mathematical expression based on the constant for the binding of testosterone to albumin and/or sex hormone binding globulin.[address] [address] Performed By: #### G ADILENE, CORTI, INSU, TSHX, PROL, FTST, DHES ####[address] [place], [place] [id number] US PELVIS COMPLETEon 017 US PELVIS COMPLETE [...] by:MATT Batresigned by:Ethan Armstrong MD04/06/17Final result Normal [facility] Chlamydia/GC DNA, TPon 03-29 Chlamydia Probe, TP Negative Normal NEG [facility] Comment on above: Result Comment: CHLA MYDIA TRACHOMATIS DNA not detected by nucleic acid amplification. Performed By: #### C YTCGP ####[address] [address] Gonorrhea Probe, TP Negative Normal NEG [facility] Comment on above: Result Comment: NEIS SERIA GONORRHOEAE DNA not detected by nucleic acid amplification.[address] [address] Performed By: #### C YTC ####[address] [address] Cytologyon 03-28-2017 Cytology (NOTE)[id number] LABORATORIESCONSULTING PATHOLOGISTS CORPORATIONANATOMIC [id number] [place] [phone] Fax: GYNECOLOGIC CYTOLOGY REPORTPatient Name: PARMINDER MASSEY#: [id number] #[id number]:1: Cervical material, (ThinPrep vial, Imaging-assisted review)Clinical HistoryNo LMP date ttyifB25.4 Encounter for screening for malignant neoplasm of cervixHigh Risk HPV DNA testing is requested if the diagnosis is ASC-USINTERPRETATIONCervi mariama material, (ThinPrep vial, Imaging-assisted review):Specimen Adequacy: Unsatisfactory for evaluation.Specimen processed and examined but unsatisfactory for evaluation of epithelial abnormality due to: - Insufficient epithelial cell component, predominantly exudate.Descriptive Diagnosis: Interpretation not possible due to unsatisfactory specimenadequacy.Shift in aniceto suggestive of bacterial vaginosis.Cytotechnologis t: SZMARYSE. ALFREDA Larry(ASCP)Electronically Signed Outmk/04/04/2017 Normal [facility] Vaginitis DNA Probeon 2016 Vaginitis DNA [...] of vaginitis/vaginosis. Report Status FINAL 03/28/2017 Normal [facility] Comment on above: Performed By: #### V AGDNA ####[address] [place] [id number] Vital Signs Date Time Vital Sign Value Performing Clinician Facility 07-23-2024 10:07-0500 Body mass index (BMI) [Ratio] 27.29 kg/m2 Maulik Floro CNM Work Phone: [facility] 07-23-2024 10:07-0500 Body weight 74.39 kg Maulik Floro CNM Work Phone: [facility] 07-23-2024 10:07-0500 Diastolic blood pressure 80 mm[Hg] Maulik Floro CNM Work Phone: [facility] 07-23-2024 10:07-0500 Systolic blood pressure 120 mm[Hg] Maulik Floro CNM Work Phone: [facility] 06-25-2024 10:32-0500 Body mass index (BMI) [Ratio] 25.79 kg/m2 Maulik Floro CNM Work Phone: [facility] 06-25-2024 10:32-0500 Body weight 70.31 kg Maulik Floro CNM Work Phone: [facility] 06-25-2024 10:32-0500 Diastolic blood pressure 80 mm[Hg] Maulik Floro CNM Work Phone: [facility] 06-25-2024 10:32-0500 Systolic blood pressure 120 mm[Hg] Maulik Floro CNM Work Phone: [facility] 05-21-2024 09:23-0500 Body mass index (BMI) [Ratio] 24.13 kg/m2 Maulik Floro CNM Work Phone: [facility] 05-21-2024 09:23-0500 Body weight 65.77 kg Maulik Floro CNM Work Phone: [facility] 05-21-2024 09:23-0500 Diastolic blood pressure 80 mm[Hg] Maulik Floro CNM Work Phone: [facility] 05-21-2024 09:23-0500 Systolic blood pressure 120 mm[Hg] Maulik Floro CNM Work Phone: [facility] 04-23-2024 09:26-0400 Body mass index (BMI) [Ratio] 22.63 kg/m2 Maulik Floro CNM Work Phone: [facility] 04-23-2024 09:26-0400 Body weight 61.69 kg Maulik Floro CNM Work Phone: [facility] 04-23-2024 09:26-0400 Diastolic blood pressure 70 mm[Hg] Maulik Floro CNM Work Phone: [facility] 04-23-2024 09:26-0400 Systolic blood pressure 112 mm[Hg] Maulik Floro CNM Work Phone: [facility] 03-19-2024 09:31-0400 Body mass index (BMI) [Ratio] 21.8 kg/m2 Maulik Floro CNM Work Phone: [facility] 03-19-2024 09:31-0400 Body weight 59.42 kg Maulik Floro CNM Work Phone: [facility] 03-19-2024 09:31-0400 Diastolic blood pressure 72 mm[Hg] Maulik Floro CNM Work Phone: [facility] 03-19-2024 09:31-0400 Systolic blood pressure 112 mm[Hg] Maulik Floro CNM Work Phone: [facility] 12-10-2021 07:07-0400 Body temperature 98.1 [degF] Rodo Simmons APRN - CNM Work Phone: [facility] 12-10-2021 07:07-0400 Diastolic blood pressure 65 mm[Hg] Rodo Simmons APRN - CNM Work Phone: [facility] 12-10-2021 07:07-0400 Heart rate 81 /min Rodo Mason CNM Work Phone: [facility] [employer] 12-10-2021 07:07-0400 Respiratory rate 18 /min Rodo Mason CNM Work Phone: [facility] [employer] 12-10-2021 07:07-0400 Systolic blood pressure 114 mm[Hg] Rodo Mason CNM Work Phone: [facility] [employer] 12-08-2021 00:34-0400 SaO2% (BldA) [Mass fraction] 94 % Rodo Mason CNM Work Phone: [facility] [employer] 12-07-2021 05:40-0400 Body height 165.1 cm Rodo Mason CNM Work Phone: [facility] [employer] 12-07-2021 05:40-0400 Body mass index (BMI) [Ratio] 30.12 kg/m2 Rodo Mason CNM Work Phone: [facility] [employer] 12-07-2021 05:40-0400 Body weight 82.1 kg Rodo Mason CNM Work Phone: [facility] [employer] Encounters Encounter Date Encounter Type Care Provider Facility Start: 07-27-2024 End: 07-27-2024 Clinisync Result Encounter Narayan Juan DO Work Phone: [facility] Unsolicited Start: 07-27-2024 End: 07-27-2024 Clinisync Result Encounter Narayan Juan DO Work Phone: [facility] Unsolicited Start: 07-23-2024 End: 07-23-2024 Bamboo flowsheet Maulik L Floro CNM Work Phone: [facility] Start: 07-23-2024 End: 07-23-2024 Bamboo flowsheet Maulik L Floro CNM Work Phone: [facility] Start: 07-23-2024 End: 07-23-2024 ambulatory MAULIK L FLORO Not Available Start: 07-23-2024 End: 07-23-2024 Subsequent care visit Maulik L Floro CNM [...] pain Start: 02-26-2024 End: 02-26-2024 ambulatory MAULIK LEIGHO Not Available Start: 01-29-2024 End: 01-29-2024 ambulatory MAULIK Zeeshan FLORO Not Available Start: 01-29-2024 End: 01-29-2024 ambulatory MAULIK Zeeshan FLORO Not Available Start: 12-07-2021 End: 12-10-2021 Evaluation and management of inpatient RODO SHAW [facility] Start: 12-07-2021 End: 12-10-2021 Evaluation and management of inpatient Rodo Simmons SOCK BOARDER - CNM Work Phone: [facility] Labor and Delivery Comment on above: Third trimester preg corey Start: 06-24-2021 End: 06-24-2021 ambulatory ARINA LEIGHO Facility: Start: 06-06-2017 End: 06-06-2017 Ambulatory [facility] Start: 04-06-2017 End: 04-07-2017 Ambulatory [facility] Start: 03-28-2017 End: 03-29-2017 [facility] Procedures Date Procedure Procedure Detail Performing Clinician Start: 07-27-2024 ALL CBC WITH AUTO DIFF Narayan Juan DO Work Phone: Start: 12-08-2021 Blood count complete automated Maulik Leigho SOCK BOARDER - CNM Work Phone: Start: 12-08-2021 RHO(D) IMMUNE GLOBUL IN, Maulik Olgao SOCK BOARDER - CNM Work Phone: Start: 12-07-2021 SURGICAL PATHOLOGY REPORT Matt Light MD Work Phone: Start: 12-07-2021 Blood count complete auto&auto difrntl wbc Rodo Shaw SOCK BOARDER - CNM Work Phone: Start: 12-07-2021 biophysical pr ofile w/o non-stress testing Rodo Simmons SOCK BOARDER - CNM Work Phone: Start: 12-07-2021 Drug tst prsmv instr mnt chem analyzers pr date Rodo Monaeemir [facility] Work Phone: Start: 12-07-2021 Urinalysis microscop ic only Rodo Simmons [facility] Work Phone: Start: 12-07-2021 Urnls dip stick/tabl et rgnt auto w/o microscopy Rodo Simmons [facility] Work Phone: Start: 11-10-2021 GBS, EXTERNAL RESULT Nc storical Provider Start: 09-22-2021 ABO, EXTERNAL RESULT Hi storical Provider MD Start: 09-22-2021 RH FACTOR, EXTERNAL RESULT Historical Provider MD Start: 09-21-2021 RHOGAM, EXTERNAL RESULT Historical Provider MD Start: 05-04-2021 C. TRACHOMATIS, EXTE RNAL RESULT Historical Provider MD Start: 05-04-2021 HEPATITIS B, EXTERNA L RESULT Historical Provider MD Start: 05-04-2021 HIV, EXTERNAL RESULT Nc storical Provider Start: 05-04-2021 N. GONORRHOEAE, EXTE RNAL RESULT Historical Provider MD Start: 05-04-2021 RPR, EXTERNAL RESULT Nc storical Provider Start: 05-04-2021 RUBELLA TITER, EXTER NAL RESULT Historical Provider MD Start: 06-05-2017 Microscopic observat ion [Identifier] in Cervix by Cyto stain Rodo Simmons [facility] Work Phone: Start: 04-06-2017 CORTISOL TOTAL SONU DE LA ROSA SER Start: 04-06-2017 DHEA-SULFATE SONU LISA R Start: 04-06-2017 GLUCOSE, RANDOM SONU BRYAN ASER Start: 04-06-2017 INSULIN, TOTAL SONU FRA SER Start: 04-06-2017 PROLACTIN SONU GONZALEZ R Start: 04-06-2017 TESTOSTERONE, FREE SONU DE [...] AM EST Routine [facility] [address] [place] [id number] Maulik Del Toro, CNM [address] [place] [address] [facility] Start: 07-23-2024 End: 07-23-2024 Patient encounter procedure 07/23/2024 10:00 AM EST Routine [facility] [address] [place] [id number] Maulik Del Toro, CNM [address] [place] [address] [facility] Start: 06-24-2024 End: 06-24-2024 Patient encounter procedure [facility] Comment on above: Arrived Start: 05-21-2024 End: 05-21-2024 Patient encounter procedure [facility] Comment on above: Arrived Start: 04-23-2024 End: 04-23-2024 Professional / ancillary services management 04/23/2024 10:00 AM EDT Ancillary Procedure [facility] [address] [address] [facility] Start: 04-23-2024 End: 04-23-2024 Patient encounter procedure [facility] Comment on above: Arrived Start: 03-19-2024 End: 03-19-2025 US for US OB 14+ weeks anatomy scan Imaging Routine related condition in second trimester Expected: 03/19/2024, Expires: 03/19/2025 [facility] Work Phone: Comment on above: Expected: 03/19/2024 , Expires: 03/19/2025 Start: 03-16-2024 Influenza vaccination Influenza Vacc ine (#1) [facility] Start: 03-04-2024 Screening for malign ant neoplasm of cervix [facility] Start: 03-16-2022 Influenza vaccination Flu vacc ine (Season Ended) [facility] Start: 2020 Screening for malign ant neoplasm of cervix [facility] Start: 06-05-2020 Screening for malign ant neoplasm of cervix Pap smear [facility] Start: 2009 DTaP/Tdap/Td vaccine (1 - Tdap) DTaP/Tdap/Td vaccine (1 - Tdap) [facility] Start: 2008 Hepatitis C screening Hepatitis C sc reen [facility] [place] [facility] Start: 2005 HIV screening [facility]: 2002 Depression Screen [facility] Start: 1995 COVID-19 Vaccine (1) COVID-19 Vaccin e (1) [facility] Start: 1991 Varicella vaccine (1 of 2 - 2-dose childhood series) Varicella vaccine (1 of 2 - 2-dose childhood series) [facility] Nonrebreather mask oxygen Nonrebreather mask oxygen Respiratory Care Routine As directed - RT (PRN) until discontinued starting 12/07/2021 [facility] Phone: Comment on above: As directed - RT (AK N) until discontinued starting 12/07/2021 Oxygen therapy [[facility] Data Set] Initiate Oxygen Therapy Protocol Respiratory Care Routine As Needed until discontinued starting 12/07/2021 [employer] Phone: Comment on above: As Needed until disc ontinued starting 12/07/2021 RHOGAM RHOGAM POSTPAR MARCELINO Blood Bank [employer] Label Print 12/08/2021 7:15 AM EDT [employer] Phone: Spirometry panel Incentive drea metry Respiratory Care Routine Every 2hr while awake until discontinued starting 12/08/2021 [employer] Phone: Comment on above: Every 2hr while awak e until discontinued starting 12/08/2021 Immunizations Immunization Date Immunization Notes Care Provider Fa cili 12-07-2021 diphtheria, tetanus toxoids and acellular pertussis vaccine, unspecified formulation Rodo Simmons [employer] Work Phone: [employer] Phone: 12-07-2021 measles, mumps and rubella virus vaccine Rodo Simmons [employer] Work Phone: [employer] Phone: Payers Date Payer Category Payer Private Health Insurance [employer] [id number] 2022 Unknown [employer] [id number] 2022-Present [address] [place] [address] [id number] 2022 Unknown [id number] 2016 Unknown [id number] 1990 Unknown [id number] 2.16.840.1.139975.3.579.2. 593 1990 Unknown [id number] 2.16.840.1.620868.3.579.2. 173 1990 Unknown [id number] 2.16.840.1.608521.3.579.2. 9 1990 Unknown [id number] 2.16.840.1.914752.3.579.2. 9 1990 Unknown [id number] 2.16.840.1.007923.3.579.2. 9 1990 Unknown [id number] 2.16.840.1.696648.3.579.2. 9 1990 Unknown [id number] 2.16.840.1.202565.3.579.2. 1258 1990 Unknown [id number] 2.16.840.1.576196.3.579.2. 1258 1990 Unknown [id number] 2.16.840.1.530847.3.579.2. 1258 1990 Unknown [id number] 2.16.840.1.219069.3.579.2. 9 1990 Unknown [id number] 2.16.840.1.139662.3.579.2. 1258 1990 Unknown [id number] 2.16.840.1.871728.3.579.2. 1258 1990 Unknown [id number] 2.16.840.1.316141.3.579.2. 1258 1959 Unknown [id number] Social History Date Type Detail Facility Start: 03-28-2017 End: 06-20-2023 Tobacco smoking status NVIS Ex-smoker [facility] [employer] Phone: History of tobacco use Cigarette Smoker [facility] [employer] Phone: Start: 03-28-2017 End: 01-29-2024 Cigarettes smoked current (pack per day) - Reported 1 [employer] Phone: Start: 03-28-2017 End: 06-20-2023 Tobacco use and exposure Smokeless tobacco non-user [employer] Phone: Start: 12-07-2021 Alcohol intake Ex-drinker (finding) [employer] Phone: Start: 1990 Sex Assigned At Not on file [facility] [employer] Phone: Start: 11-27-2021 End: 12-07-2021 Exposure to SARS-CoV-2 (event) Not sure [employer] Phone: History of tobacco use Current smoker [facility] Start: 01-29-2024 Alcoholic beverage intake Lifetime non-drinker (finding) [facility] Start: 01-29-2024 Tobacco use panel [facility] Start: 05-21-2023 Alcohol Comment caffeine: 1-2 cups per day [facility] Start: 12-23-2023 [facility] Notes 12-10-2021 to 07-23-2024 Maulik Del [...] a routine visit. documented in this encounter [facility] 06-25-2024 History of Present illness Narrative Subjective [...] a routine visit. documented in this encounter [facility] 06-17-2024 Telephone encounter Note Licha arciniega needs lab result that has her blood type on it and Demo sheet faxed to [phone] [facility] 06-17-2024 Miscellaneous Notes Licha [facility] needs lab result that has her blood type on it and Demo sheet faxed to [phone] documented in this encounter [facility] 05-21-2024 History of Present illness Narrative Subjective [...] a routine visit. documented in this encounter [facility] 04-23-2024 History of Present illness Narrative Subjective [...] a routine visit. documented in this encounter [facility] 03-19-2024 History of Present illness Narrative Subjective [...] a routine visit. documented in this encounter [facility] 12-10-2021 Hospital Discharge instructions Lorin Arias RN - 12/10/2021 Follow-up with your OB doctor as specified. [facility] OB Department phone: Chikis Del Toro, MSN, SOCK BOARDER, CNM [place] [address] DIET Eat a well balanced diet focusing on foods high in fiber and protein. Drink plenty of fluids especially water. To avoid constipation you may take a mild stool softener as recommended by your doctor or pl sql developer. ACTIVITY Gradually increase your activity. Resume exercise regimen only after advice by your doctor or pl sql developer. Avoid lifting anything heavier than a gallon of milk for SIX weeks. Avoid driving until your doctor or pl sql developer has given their approval. Rise slowly from [...] have thoughts of harming yourself or your . If infant will not stop crying, contact another adult [...] medications as recommended by your doctor or pl sql developer for pain If you develop a warm, [...] vitamins as directed by your doctor or pl sql developer. Refer to the booklet in the folder/binder for more information. If you feel you need more assistance or have questions, please call Vibha Crump IBCLC, search engine optimization consultant, at or the OB department to [...] your calf. documented in this encounter [facility] [employer] Work Phone: 12-10-2021 History of Present illness [...] She is on her let side. SVE 8/90/0 brownish green fluid returned on chux pad [...] urine sample. documented in this encounter [facility] [employer] Phone: Evaluation note Diagnosis Uterine contractions- Primary Third trimester Term intolerance to labor, delivered, current hospitalization Abnormality in heart rate/rhythm, delivered, with or without mention of antepartum condition delivery delivered delivery, without mention of indication, delivered, with or without mention of antepartum condition documented in this encounter [employer] Phone: evaluation note* Diagnosis Encounter for supervision [...] FoundNo Family History Records Found Advance Directives No Advanced Directives Records FoundDocuments on File Type Date 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 Latest Code Status on File Code Status Date Activated Date Inactivated Comments Full Code 12/07/2021 11:34 PM Full Code 12/07/2021 5:30 AM 12/07/2021 11:33 PM Additional Source Comments INFORMATION SOURCE (unrecogn ized section and content) DATE CREATED AUTHOR 01/08/2018 [facility] DATE CREATED AUTHOR AUTHOR'S ORGANIZ ATION 12/02/2021 [facility]ical Specialist DATE CREATED AUTHOR AUTHOR'S ORGANIZ ATION 12/08/2021 [facility] DATE CREATED AUTHOR AUTHOR'S ORGANIZ ATION 01/15/2022 [facility] DATE CREATED AUTHOR AUTHOR'S ORGANIZ ATION 07/28/2024 [facility] d[facility] Specialists EPIC Reason for Visit (unrecogniz ed section and content) Reason Comments Contractions Specialty Diagnoses / Procedures Referred By Contac t Referred To Contact Diagnoses Uterine contractions Term intolerance to labor, delivered, current hospitalization Rodo Shaw, SOCK BOARDER - CNM [address] [place] [address] [facility] [address] [place] [address] Referral ID Status Reason Start Date Expiration Date Visits Re quested Visits Authorized [id number] 1 1 Ordered Prescriptions (unrec ognized section [...] Matt RN) 0808 (Given - Provider: Usha Murguia, NESS) 0900 (Due) furosemide (LASIX) tablet 20 mg [...] Discontinued, Begin when normal bowel activity resumes., 08 (Given - Provider: Sherry Matt RN) 08 (Given - Provider: Usha Murguia RN) 899 (Due) rho(D) immune globulin (HYPERRHO S/D) injection 300 mcg 300 mcg, IntraMUSCular, ONCE, 1 dose, On Sun12/08/21 at 0000, 0900 (Due - Provider: Domitila Herzog RN) sertraline (ZOLOFT) tablet 25 mg 25 mg, Oral, DAILY, First dose on Sun12/08/21 at 1015, Until Discontinued 1904 (Not Given - Provider: Sherry Matt RN - Reason: Other - Comment: pt reports that she takes med nightly.)2118 (Given - Provider: Daria Arce RN) 2099 (Due - Provider: Kaushik Lindsey [facility]) 2099 (Due - Provider: Kaushik Lindsey [facility]) sodium chloride flush 0.9 % injection [...] RN - Reason: IV Fluid Infusing)2099 (Due) 899 (Due)2099 (Due) 899 (Due)2099 (Due) mqyxajp-yypdux-xbmlh pertussis (BOOSTRIX) injection 0.5 mL 0.5 mL, IntraMUSCular, PRIOR TO DISCHARGE, 1 dose, Starting on Sun12/07/21 at 2333, Until Discontinued, If not previously administered during at 27-36 weeks as recommended by CDC., Continuous Medication Order 12/08/2021 12/09/2021 12/10/2021 lactated ringers infusion IntraVENous, at 125 mL/hr, CONTINUOUS, Starting on Katarzyna 12/08/21 at 0000, 1740 (New Bag - Provider: [...] frequent line interruptions/ long duration, Starting on 12/07/21 at 2333, For piggyback infusion, administer at [...] Oral, EVERY 8 HOURS PRN, Starting on 12/07/21 at 2333, Until Discontinued, Other, Pain (1-10), [...] Ena Gilmore, RN)1429 (Given - Provider: Nataliia York RN)2336 [...] or chew. 0808 (Given - Provider: Usha Murguia RN)1816 (Given - Provider: Nataliia York, NESS) 0513 (Given - Provider: Lottie Maldonado, NESS)1400 (Given - Provider: Lorin Arias RN) ketorolac [...] PO ibuprofen., 0417 (Given - Provider: Domitila Herzog, NESS)1107 (Given - Provider: Sherry Matt, NESS)1709 (Given - Provider: Sherry Matt RN)2314 (Given - Provider: Misa Mcfadden RN) lansinoh lanolin ointment Topical, EVERY 1 HOUR PRN, Dry Skin, nipple discomfort, Starting on Sun12/07/21 at 2333, Post-op measles, mumps & rubella vaccine (MMR) injection 0.5 mL 0.5 mL, SubCUTAneous, PRN, 1 dose, Starting on Sun12/07/21 at 2332, Until Discontinued, if non immune or equivical, methylergonovine (METHERGINE) injection 200 mcg 200 mcg, IntraMUSCular, PRN, Starting on Sun12/07/21 at 2332, Until Discontinued, Bleeding, PRN for post- hemorrhage, [...] BE BASED ON THE PRIMARY CLINICAL RECORDS. [employer] provides no warranty or guarantee of the accuracy or completeness of information in this document.
[2024-07-30 09:56] VITALS: BP 117/67; PULSE 91
== END 2024-07-30 10:29 | disposition home or self-care (01) ==
LOC: FBCO 00:49 → FBC 09:15
PROVIDERS: PCP Midwife; Visit Provider Obstetrics & Gynecology
DX: O26.893 Other specified pregnancy related conditions, third trimester (principal); Z87.51 Personal history of pre-term labor; Z3A.33 33 weeks gestation of pregnancy
CPT/HCPCS: 76818

== ENCOUNTER 2024-08-02 06:26 | Outpatient (OUT) | payer OTHER, SELFPAY ==
--- OUTSIDE RECORDS SUMMARY | 2024-08-02 06:29 | XMS_ITS | CCD ---
Author Organization [facility] Care Team Providers Care Curber Name Role Phone SONU GONZALEZ Unavailable Unavailable [...] to adverse reactions to substance 12-07-2021 [facility] Medications Current Medications Medication Drug Class(es) [...] Active docusate sodium 50 mg / sennosides, [facility] 8.6 mg oral tablet (1 source) Start: [...] WITH AUTO DIFFon BASOPHILS ABSOLUTE AUTO 0 [facility] Basophils/100 WBC (Bld) 0.2 % 0.2 - 2.0 % [facility] Eosinophils/100 WBC (Bld) 0.2 % Low 0.9 - 7.0 % [facility] Erythrocyte distribution width (RBC) [Ratio] 12.6 % 11.0 - 15.0 % [facility] Hematocrit (Bld) [Volume fraction] 33.1 % Low 36.0 - 48.0 % [facility] Hemoglobin (Bld) [Mass/Vol] 11.1 g/dL Low 12.0 - 16.0 g/dL [facility] IMMATURE GRANULOCYTES ABS AUTO 0.16 High [facility] Immature granulocytes/100 WBC (Bld) 1.1 % High 0.0 - 0.5 % [facility] Interpretation and review of laboratory results Abnormal [facility] LYMPHOCYTES ABSOLUTE AUTO 1.5 [facility] Lymphocytes/100 WBC (Bld) 10.3 % Low 20.5 - 60.0 % [facility] MCH (RBC) [Entitic mass] 30.6 pg 26.7 - 34.0 pg [facility] MCHC (RBC) [Mass/Vol] 33.5 g/dL 29.9 - 35.2 g/dL [facility] MCV (RBC) [Entitic vol] 91.2 fL 81.0 - 99.0 fL [facility] MONOCYTES ABSOLUTE AUTO 0.9 High [facility] Monocytes/100 WBC (Bld) 6.3 % 1.7 - 12.0 % [facility] NEUTROPHILS ABSOLUTE AUTO 11.8 High [facility] Neutrophils/100 WBC (Bld) 81.9 % High 43.0 - 75.0 % [facility] Platelet mean volume (Bld) [Entitic vol] 10.2 fL 9.5 - 13.5 fL [facility] TBH EO # 0 [facility]H PLT 224 [facility] RBC 3.63 Low [facility] TB WBC 14.4 High [facility] US for pregnancyon TITLE OF EXAM: OB [...] report is generated using voice recognition reporting ([employer]). On occasion Power[employer]ribe erroneously drops words from [...] for pregnancyOrdered By: Yordan Duran on 06-06-2024 [facility] [employer] Work Phone: US OB LIMITED 1+ FETUSESon [...] report is generated using voice recognition reporting (Yekra). On occasion Yekra erroneously drops words from the report or replaces the spoken word with similar sounding words. Please call with any questions/concerns regarding this report.* Dictated and transcribed 06/05/24/dpd This report has been electronically signed and approved by the interpreting radiologist. Normal Not Available US for pregnancyon Radiology Study observation (narrative) [facility] US OB 14+ WEEKS ANATOMY SCAN on [...] 2.8 cm. Yolk sac diameter 0.3 cm. [place] rump length is 1.5 cm. heart rate [...] CONSULTATION Patient Name: ALTON DAVIS Cj Rec: [id number] Path Number: [id number] [facility] ANATOMIC PATHOLOGY [address] [place] [address]. [place], [place] [address] [facility] BIOPHYSICAL PROFILE WO NON STRESS TESTINGon 12-09-2021 [...] Ajit Warner MD 12/09/21 Final result Normal [facility] Biophysical profile score 8/8. KUNAL 7.1. The findings were sent to the Radiology Results Communication Center at 10:15 am on 12/07/2021 to be communicated to a licensed caregiver. [facility] EXAMINATION: BIOPHYSICAL PROFILE WITHOUT [...] fluid index 7.1 with MVP 2.8 cm. [facility] Ajit Warner MD - [...] to be communicated to a licensed caregiver. [employer] Phone: BIOPHYSICAL PROFILE WO NON STRESS TESTINGOrdered By: Ajit Warner on 12-09-2021 [facility] [employer] Phone: CBCon 12-08-2021 Erythrocyte distribution width (RBC) [Ratio] 14.3 % Normal 11.8-14.4 [facility] Comment on above: Performed By: #### C BC #### [address] [place] [address] Horser Up: Mohamud Lucas MD Hematocrit (Bld) [Volume fraction] 26.3 % Low 36.3-47.1 [facility] Comment on above: Performed By: #### C BC #### [facility] [address] [place] [address] [place] [address] Horser Up: Mohamud Lucas MD Hemoglobin (Bld) [Mass/Vol] 8.5 g/dL Low 11.9-15.1 [facility] Comment on above: Performed By: #### C BC #### [address] [place] [address] Horser Up: Mohamud Lucas MD MCH (RBC) [Entitic mass] 27.0 pg Normal 25.2-33.5 [facility] Comment on above: Performed By: #### C BC #### [facility] [address] [place], [place] [id number] Horser Up: Mohamud Lucas MD MCHC (RBC) [Mass/Vol] 32.3 g/dL Normal 28.4-34.8 [facility] Comment on above: Performed By: #### C BC #### [facility] [address] [place], [place] [id number] Horser Up: Mohamud Lucas MD MCV (RBC) [Entitic vol] 83.5 fL Normal 82.6-102.9 [facility] Comment on above: Performed By: #### C BC #### [address] [place], [place] [phone] Horser Up: Mohamud Lucas MD NRBC Automated 0.0 per 100 WBC Normal 0.0 [facility] Comment on above: Performed By: #### C BC #### [address] [place], [place] [phone] Horser Up: Mohamud Lucas MD Platelet mean volume (Bld) [Entitic vol] 11.1 fL Normal 8.1-13.5 [facility] Comment on above: Performed By: #### C BC #### [address] [place], [place] [id number] Horser Up: Mohamud Lucas MD Platelets (Bld) [#/Vol] 219 10*3/uL Normal 138-453 [facility] Comment on above: Performed By: #### C BC #### [address] [place], [place] [id number] Horser Up: Mohamud Lucas MD RBC (Bld) [#/Vol] 3.15 10*6/uL Low 3.95-5.11 [facility] Comment on above: Performed By: #### C BC #### [address] [place] [address] Horser Up: Mohamud Lucas MD WBC (Bld) [#/Vol] 20.6 10*3/uL High 3.5-11.3 [facility] Comment on above: Performed By: #### C BC #### [facility] [address] [place] [address] Horser Up: Mohamud Lucas MD Hematocrit (Bld) [Volume fraction] 26.3 % Low 36.3 - 47.1 % [facility] Hemoglobin.gastroin testinal spec 1 Ql (Stl) 8.5 g/dL Low 11.9 - 15.1 g/dL [facility] Interpretation and review of laboratory results Abnormal [facility] MCH (RBC) [Entitic mass] 27.0 pg 25.2 - 33.5 pg [facility] MCHC (RBC) [Mass/Vol] 32.3 g/dL 28.4 - 34.8 g/dL [facility] MCV (RBC) [Entitic vol] 83.5 fL 82.6 - 102.9 fL [facility] NRBC Automated 0.0 0.0 per 100 WBC [facility] Platelet distribution width (Bld) [Ratio] 14.3 % 11.8 - 14.4 % [facility] Platelet mean volume (Bld) [Entitic vol] 11.1 fL 8.1 - 13.5 fL [facility] Platelets (Bld) [#/Vol] 219 10*3/uL [facility] RBC (Bld) [#/Vol] 3.15 10*6/uL Low 3.95 - 5.1 1 m/uL [facility] WBC (Bld) [#/Vol] 20.6 10*3/uL High [facility] RhIg Workup (RhoGam)on 12-08 RhIg Workup (RhoGam) Blood Component Type MANUFACTURED PRODUCT Units Ordered 1 ABO/Rh(D) A NEGATIVE Antibody Screen NEGATIVE History Check NO PREVIOUS HISTORY Rhig Eligibility Patient Is A Candidate For Injection Eugenie NEGATIVE Du Antigen NOT TESTED Unit Number [id number] Blood Component Type RHIG Unit Division 00 Status of Unit REL FROM ALLOC Transfusion Status OK TO TRANSFUSE Normal [facility] Comment on above: Performed By: #### R HIGW #### [facility] [address] [place] [address] Horser Up: Mohamud Lucas MD CBC auto differentialon 11-14 Absolute Eos # 0.08 [facility] Absolute Immature Granulocyte 0.08 [facility] Absolute Lymph # 1.81 [facility] Absolute [place] # 0.88 [facility] Basophils (Bld) [#/Vol] 0.04 10*3/uL [facility] Basophils/100 WBC (Bld) 0 % 0 - 2 % [facility] Eosinophils/100 WBC (Bld) 1 % 1 - 4 % [facility] Hematocrit (Bld) [Volume fraction] 32.8 % Low 36.3 - 47.1 % [facility] Hemoglobin.gastroin testinal spec 1 Ql (Stl) 10.3 g/dL Low 11.9 - 15.1 g/dL [facility] Immature granulocytes/100 WBC (Bld) 1 % High 0 [facility] Interpretation and review of laboratory results Abnormal [facility] Lymphocytes/100 WBC (Bld) 15 % Low 24 - 43 % [facility] MCH (RBC) [Entitic mass] 26.5 pg 25.2 - 33.5 pg [facility] MCHC (RBC) [Mass/Vol] 31.4 g/dL 28.4 - 34.8 g/dL [facility] MCV (RBC) [Entitic vol] 84.5 fL 82.6 - 102.9 fL [facility] Monocytes/100 WBC (Bld) 7 % 3 - 12 % [facility] NRBC Automated 0.0 0.0 per 100 WBC [facility] Platelet distribution width (Bld) [Ratio] 14.2 % 11.8 - 14.4 % [facility] Platelet mean volume (Bld) [Entitic vol] 11.9 fL 8.1 - 13.5 fL [facility] Platelets (Bld) [#/Vol] 259 10*3/uL [facility] RBC (Bld) [#/Vol] 3.88 10*6/uL Low 3.95 - 5.1 1 m/uL [facility] Segmented neutrophils/100 WBC (Bld) 76 % High 36 - 65 % [facility] Segs Absolute 9.01 High [facility] WBC (Bld) [#/Vol] 11.9 10*3/uL High [facility] CBC with Diffon 12-07-2021 Abs. Basophil 0.04 k/uL Normal 0.00-0.[address] [facility] Comment on above: Performed By: #### C DP #### [facility] [address] [place] [address] [place] [address] Horser Up: Mohamud Lucas MD Abs.Imm.Granulocyte 0.08 k/uL Normal 0.00-0.30 [facility] Comment on above: Performed By: #### C DP #### [facility] [address] [place] [address] [place] [address] Horser Up: Mohamud Lucas MD Abs.Neutrophil (Seg) 9.01 k/uL High 1.50-8.10 [facility] Comment on above: Performed By: #### C DP #### [facility] [address] [place] [address] [place], [place] [phone] Horser Up: Mohamud Lucas MD Basophils/100 WBC (Bld) 0 % Normal 0-2 [facility] Comment on above: Performed By: #### C DP #### [facility] [address] [place] [address] [place] [address] Horser Up: Mohamud Lucas MD Eosinophils (Bld) [#/Vol] 0.08 10*3/uL Normal 0.00-0.44 [facility] Comment on above: Performed By: #### C DP #### [facility] [address] [place] [address] [place], [place] [phone] Horser Up: Mohamud Lucas MD Eosinophils/100 WBC (Bld) 1 % Normal 1-4 [facility] Comment on above: Performed By: #### C DP #### [address] [place], [place] [phone] Horser Up: Mohamud Lucas MD Erythrocyte distribution width (RBC) [Ratio] 14.2 % Normal 11.8-14.4 [facility] Comment on above: Performed By: #### C DP #### [address] [place], [place] [phone] Horser Up: Mohamud Lucas MD Hematocrit (Bld) [Volume fraction] 32.8 % Low 36.3-47.1 [facility] Comment on above: Performed By: #### C DP #### [address] [place], [place] [phone] Horser Up: Mohamud Lucas MD Hemoglobin (Bld) [Mass/Vol] 10.3 g/dL Low 11.9-15.1 [facility] Comment on above: Performed By: #### C DP #### [address] [place], [place] [phone] Horser Up: Mohamud Lucas MD Immature granulocytes/100 WBC (Bld) 1 % High 0 [facility] Comment on above: Performed By: #### C DP #### [facility] [address] [place] [address] [place], [place] [phone] Horser Up: Mohamud Lucas MD Lymphocytes (Bld) [#/Vol] 1.81 10*3/uL Normal 1.10-3.70 [facility] Comment on above: Performed By: #### C DP #### [facility] [address] [place] [address] [place], [place] [phone] Horser Up: Mohamud Lucas MD Lymphocytes/100 WBC (Bld) 15 % Low 24-43 [facility] Comment on above: Performed By: #### C DP #### [facility] [address] [place] [address] [place], [place] [phone] Horser Up: Mohamud Lucas MD MCH (RBC) [Entitic mass] 26.5 pg Normal 25.2-33.5 [facility] Comment on above: Performed By: #### C DP #### [facility] [address] [place], [facility]83 Horser Up: Mohamud Lucas MD MCHC (RBC) [Mass/Vol] 31.4 g/dL Normal 28.4-34.8 [facility] Comment on above: Performed By: #### C DP #### [facility] [address] [place], [facility]83 Horser Up: Mohamud Lucas MD MCV (RBC) [Entitic vol] 84.5 fL Normal 82.6-102.9 [facility] Comment on above: Performed By: #### C DP #### [facility] [address] [place], [place] [phone] Horser Up: Mohamud Lucas MD Monocytes (Bld) [#/Vol] 0.88 10*3/uL Normal 0.10-1.20 [facility] Comment on above: Performed By: #### C DP #### [facility] [address] [place], [place] [phone] Horser Up: Mohamud Lucas MD Monocytes/100 WBC (Bld) 7 % Normal 3-12 [facility] Comment on above: Performed By: #### C DP #### [facility] [address] [place] [address] Horser Up: Mohamud Lucas MD Neutrophil (Seg) 76 % High 36-65 [facility] Comment on above: Performed By: #### C DP #### [facility] [address] [place], [facility]83 Horser Up: Mohamud Lucas MD NRBC Automated 0.0 per 100 WBC Normal 0.0 [facility] Comment on above: Performed By: #### C DP #### [facility] [address] [place], [facility]83 Horser Up: Mohamud Lucas MD Platelet mean volume (Bld) [Entitic vol] 11.9 fL Normal 8.1-13.5 [facility] Comment on above: Performed By: #### C DP #### [facility] [address] [place], [facility]83 Horser Up: Mohamud Lucsa MD Platelets (Bld) [#/Vol] 259 10*3/uL Normal 138-453 [facility] Comment on above: Performed By: #### C DP #### [facility] [address] [place] [address] Dr[place], [facility]83 Horser Up: Mohamud Lucas MD RBC (Bld) [#/Vol] 3.88 10*6/uL Low 3.95-5.11 [facility] Comment on above: Performed By: #### C DP #### [facility] [address] [place] [address] Dr[place], [facility]83 Horser Up: Mohamud Lucas MD WBC (Bld) [#/Vol] 11.9 10*3/uL High 3.5-11.3 [facility] Comment on above: Performed By: #### C DP #### [facility] [address] [place], [facility]83 Horser Up: Mohamud Lucas MD DRUG SCREEN MULTI URINEon Amphetamine Screen, Ur Negative NEGATIVE [facility] Barbiturate Screen, Ur Negative NEGATIVE [facility] Benzodiazepine Screen, Urine Negative NEGATIVE [facility] Buprenorphine Urine Negative NEGATIVE [facility] Cannabinoid Scrn, Ur Negative NEGATIVE [facility] Cocaine Metabolite, Urine Negative NEGATIVE [facility] Methadone Screen, Urine Negative NEGATIVE [facility] Methamphetamine, Urine Negative NEGATIVE [facility] Opiates, Urine Negative NEGATIVE [facility] Oxycodone Screen, Ur Negative NEGATIVE [facility] Phencyclidine, Urine Negative NEGATIVE [facility] Propoxyphene, Urine Negative NEGATIVE [facility] Tricyclic Antidepressants, Urine Negative NEGATIVE [facility] Comment on above: Drug screen results are to be used for medical purposes only. All positive results are unconfirmed. Testing for employment or legal uses should be sent to a reference laboratory for confirmation. [facility] Drug Scr, Abuse, Uron 2021 Amphetamine(s),Ur Negative Normal NEG [facility] Comment on above: Performed By: #### D AU #### [facility] [address] [place] [address] [place] [address] Horser Up: Mohamud Lucas MD Barbiturate(s),Ur Negative Normal NEG [facility] Comment on above: Performed By: #### D AU #### [facility] [address] [place], [facility]83 Horser Up: Mohamud Lucas MD Benzodiazepine(s) Negative Normal [facility] Comment on above: Performed By: #### D AU #### [facility] [address] [place] [address] Dr[place], [facility]83 Horser Up: Mohamud Lucas MD Buprenorphrine, Ur Negative Normal NEG [facility] Comment on above: Performed By: #### D AU #### [facility] [address] [place], [facility]83 Horser Up: Mohamud Lucas MD Cannabinoid(s),Ur Negative Normal NEG [facility] Comment on above: Performed By: #### D AU #### [facility] [address] [place] [address] Horser Up: Mohamud Lucas MD Cocaine Metabolite Negative Normal [facility] Comment on above: Performed By: #### D AU #### [facility] [address] [place], [place] [phone] Horser Up: Mohamud Lucas MD Methadone Ql (U) Negative Normal NEG [facility] Comment on above: Performed By: #### D AU #### [facility] [address] [place] [address] Horser Up: Mohamud Lucas MD Methamphetamine, Ur Negative Normal NEG [facility] Comment on above: Performed By: #### D AU #### [facility] [address] [place] [address] Horser Up: Mohamud Lucas MD Opiate(s), Ur Negative Normal NEG [facility] Comment on above: Performed By: #### D AU #### [facility] [address] [place], [facility]83 Horser Up: Mohamud Lucas MD Oxycodone, Urine Negative Normal NEG [facility] Comment on above: Performed By: #### D AU #### [facility] [address] [place] [address] Dr. [place], [facility]83 Horser Up: Mohamud Lucas MD Phencyclidine, Ur Negative Normal [facility] Comment on above: Performed By: #### D AU #### [facility] [address] [place] [address] [place], [facility]83 Horser Up: Mohamud Lucas MD Propoxyphene,Urine Negative Normal NEG [facility] Comment on above: Performed By: #### D AU #### [facility] [address] [place] [address] Horser Up: Mohamud Lucas MD Tricyclic antidepressants Screen Ql (U) Negative Normal [facility] Comment on above: Result Comment: Drug screen results are to be used for medical purposes only. All positive results are unconfirmed. Testing for employment or legal uses should be sent to a reference laboratory for confirmation. Performed By: #### D AU #### [address] [place] [place] [address] Horser Up: Mohamud Lucas MD Microscopic Urinalysison - [facility] Bacteria, UA 2+ Abnormal None [facility] Epithelial Cells UA 2 TO 5 [facility] Interpretation and review of laboratory results Abnormal [facility] RBC, UA 0 TO 2 [facility] WBC, UA 2 TO 5 [facility] Yeast, UA PRESENCE NOTED Abnormal None [facility] OPERATIVE REPORTon OPERATIVE REPORT [address] [address] OPERATIVE REPORT PATIENT NAME: ALTON DAVIS : 1990 MED REC NO: [id number] ROOM: 0208 ACCOUNT NO: [id number] ADMIT DATE: 12/07/2021 PROVIDER: Matt Light MD [...] section, low transverse uterine segment. ANESTHESIA: Epidural. MICA SPREADER: Maulik Del Toro. 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 head was elevated and turned. [...] a running imbricating interlocking fashion. A few [id number] sutures were placed along the central inferior [...] were mentioned. MATT LIGHT MD [id number] Doc#: [id number] CC: Maulik Del Toro [facility] Surgical Pathologyon 022 Surgical Pathology (NOTE) [...] SURGICAL PATHOLOGY CONSULTATION Patient Name: ALTON DAVIS [facility] Rec: [id number] Path Number: [id number] [employer] [facility] ANATOMIC PATHOLOGY [address] [place] [phone] [facility] Comment on above: Performed By: #### P PPVS #### [employer] [address] [place] [address] Horser Up: Dhaval Rao MD BIOPHYSICAL PROFILE WO NON STRESS TESTINGon 12-07-2021 Radiology Study observation (narrative) [employer] Work Phone: Urinalysison 12-07-2021 Bilirubin Urine Negative NEGATIVE Monitor110 [facility] [employer] Color, UA Yellow Yellow [facility] [employer] Glucose, Ur Negative NEGATIVE [facility] Interpretation and review of laboratory results Abnormal [facility] Ketones Ql (U) Negative NEGATIVE [facility] Leukocyte esterase Test strip Ql (U) Negative NEGATIVE [facility] Nitrite, Urine Negative NEGATIVE [facility] pH, UA 6.0 [facility] Protein, UA Negative NEGATIVE [facility] Specific [place], UA >1.030 High [facility] Turbidity UA Clear Clear [facility] Urine Hgb 1+ Abnormal NEGATIVE [facility] Urobilinogen, Urine Normal Normal [facility] Urinalysis, Routineon 2021 Bilirubin, SemiQt,Ur Negative Normal NEG [facility] Comment on above: Performed By: #### U MICAO, UA #### [facility] [address] [place] [address] [place], [place] [phone] Horser Up: Mohamud Lucas MD Blood, Urine 1+ Abnormal NEG [facility] Comment on above: Performed By: #### U MICAO, UA #### [facility] [address] [place], [facility]83 Horser Up: Mohamud Lucas MD Clarity (U) Clear Normal CLEAR [facility] Comment on above: Performed By: #### U MICAO, UA #### [facility] [address] [place], [facility]83 Horser Up: Mohamud Lucas MD Color (U) Yellow Normal YEL [facility] Comment on above: Performed By: #### U MICAO, UA #### [facility] [address] [place] [address] Horser Up: Mohamud Lucas MD Glucose Ql (U) Negative Normal [facility] Comment on above: Performed By: #### U MICAO, UA #### [facility] [address] [place] [address] Horser Up: Mohamud Lucas MD Ketones Ql (U) Negative Normal NEG [facility] Comment on above: Performed By: #### U MICAO, UA #### [facility] [address] [place] [address] Horser Up: Mohamud Lucas MD Leukocyte esterase Test strip Ql (U) Negative Normal NEG [facility] Comment on above: Performed By: #### U MICAO, UA #### [facility] [address] [place] [address] Horser Up: Mohamud Lucas MD Nitrite,Ur Negative Normal NEG [facility] Comment on above: Performed By: #### U MICAO, UA #### [facility] [address] [place] [address] [place] [address] Horser Up: Mohamud Lucas MD PH,Ur 6.0 Normal 5.0-9.0 [facility] [facility] Comment on above: Performed By: #### U MICAO, UA #### [facility] [address] [place] [address] [place] [address] Horser Up: Mohamud Lucas MD Protein Ql (U) Negative Normal NEG [facility] in Hospital Comment on above: Performed By: #### U MICAO, UA #### [facility] [address] [place] [address] [place] [address] Horser Up: Mohamud Lucas MD Spec. [place],Ur >1.030 High 1.010-1.020 [facility] Comment on above: Performed By: #### U MICAO, UA #### [facility] [address] [place], [place] [id number] Horser Up: Mohamud Lucas MD Urobilinogen,Ur Normal Normal NORM [facility] Comment on above: Performed By: #### U MICAO, UA #### [facility] [address] [place], [place] [id number] Horser Up: Mohamud Lucas MD Urinalysis,Microon 05-25-202 2 ----- Normal [facility] Comment on above: Performed By: #### U SHAHNAZO, UA #### [facility] [address] [place] [address] Horser Up: Mohamud Lucas MD Bacteria 2+ Abnormal NONE [facility] Comment on above: Performed By: #### U SHAHNAZO, UA #### [facility] [address] [place] [address] Horser Up: Mohamud Lucas MD Epithelial cells LM Ql (Urine sed) 2 TO 5 Normal 0-25 [facility] Comment on above: Performed By: #### U SHAHNAZO, UA #### [facility] [address] [place] [address] [place] [address] Horser Up: Mohamud Lucas MD Urine RBC's 0 TO 2 Normal 0-2 [facility] Comment on above: Performed By: #### U MICAO, UA #### [facility] [address] [place] [address] [place]. [place], [place] [id number] Horser Up: Mohamud Lucas MD Urine WBC's 2 TO 5 Normal 0-5 [facility] Comment on above: Performed By: #### U MICAO, UA #### [facility] [address] [place] [address] [place] [address] Horser Up: Mohamud Lucas MD Yeast PRESENCE NOTED Abnormal [facility] Comment on above: Performed By: #### U MICAO, UA #### [facility] [address] [place] [address] Horser Up: Mohamud Lucas MD US OB Growthon 11-29-2021 [...] by Param Garnett on 11/30/2021 0718 Normal [facility] [employer] Superintendent GBS, External Resulton 11-10 GBS, External Result Positive [facility] [employer] Phone: [facility] [employer] Phone: Q - STREPTOCOCCUS,GROUP B CU LTUREon 11-10-2021 STREPTOCOCCUS, GROUP B CULTURE SEE NOTE Abnormal [facility] [employer] Superintendent Comment on above: Order Comment: [facility] Testing performed at: [email or web address], [employer] [facility], [address] [place] [address], [address] [place] [address], [phone], Public Health Nutritionist: David Whalen MD [facility] Collection Date/Time: [id number] [facility] Results Received Date/Time: [id number] [facility] Reported Date/Time: [id number] Result Comment: STRE PTOCOCCUS, GROUP B CULTURE Micro Number: [id number] Test Status: Final Specimen Source: Vaginal/anorectal Specimen [...] 5 827W #### [facility] [address] [place] [address] US OB Growthon 10-03-2021 US OB Growth [...] Anterior fundal Grade I Weight (g) by Wueyvjjank65.5 % * These measurements result in an [...] by Param Garnett on 10/04/2021 0920 Normal [facility] [employer] Superintendent No Panel Informationon 09-22 ABO, External Result Negative [employer] Work Phone: Rh Factor, External Result Negative [employer] Work Phone: [employer] Work Phone: Rhogam, External Resultson 0 09-21-2021 Rhogam, External Result given [employer] Work Phone: [employer] Work Phone: Complete Blood Counton 09-20 Erythrocyte distribution width (RBC) [Ratio] 12.5 % Normal 11.0-15.0 [facility] [employer] Superintendent Comment on above: Performed By: #### G GLU, CBC #### [facility] [address], [place] [id number] Hematocrit (Bld) [Volume fraction] 32.7 % Low 35.0-47.0 [facility] [employer] Superintendent Comment on above: Performed By: #### G GLU, CBC #### [facility] [address], [place] [id number] Hemoglobin (Bld) [Mass/Vol] 10.7 g/dL Low 11.6-15.5 [facility] Specialist Comment on above: Performed By: #### G GLU, CBC #### [facility] [address], [place] [id number] MCH (RBC) [Entitic mass] 30.1 pg Normal 27.0-33.0 [facility] [employer] Superintendent Comment on above: Performed By: #### G GLU, CBC #### [facility] [address], [place] [id number] MCHC (RBC) [Mass/Vol] 32.7 g/dL Normal 32.0-36.0 [facility] [employer] Superintendent Comment on above: Performed By: #### G GLU, CBC #### [facility] [address], [place] [id number] MCV (RBC) [Entitic vol] 92 fL Normal 80-100 [facility] [employer] Superintendent Comment on above: Performed By: #### G GLU, CBC #### [facility] [address], [place] [id number] Platelet mean volume (Bld) [Entitic vol] 10.80 fL Normal 7.50-12.50 [facility] [employer] Superintendent Comment on above: Performed By: #### G GLU, CBC #### [facility] [address], [place] [id number] Platelets (Bld) [#/Vol] 240 10*3/uL Normal 140-400 [facility] [employer] Superintendent Comment on above: Performed By: #### G GLU, CBC #### [facility] [address], [place] [id number] RBC (Bld) [#/Vol] 3.56 10*6/uL Low 3.90-5.20 [facility] [employer] Superintendent Comment on above: Performed By: #### G GLU, CBC #### [facility] [address], [place] [id number] RDW-SD 42.5 fL Normal 37.0-50.0 [facility] Comment on above: Performed By: #### G GLU, CBC #### [facility] [address], [place] [id number] WBC (Bld) [#/Vol] 9.5 10*3/uL Normal 3.8-11.0 [facility] [place] [employer] Superintendent Comment on above: Performed By: #### G GLU, CBC #### [facility] [address], [place] [id number] Glucose - Gestational Screen on 09-20-2021 Glucose [Mass/Vol] 128 mg/dL Normal <135 [facility] [employer] Superintendent Comment on above: Result Comment: A va lue of 135 mg/dL or greater indicates the need for a full glucose tolerance test performed in the fasting state to determine if the patient has gestational diabetes. Performed By: #### G GLU, CBC #### [facility] [address], [place] [id number] US OB Growthon 08-29-2021 OB Growth FINDINGS: [...] by Param Garnett on 09/02/2021 0850 Normal [facility] [employer] Superintendent US OB 2nd/3rd Trimesteron OB 2nd/3rd Trimester [...] 4.7 cm (20 weeks, 2 days) Head Rhsbyscizzngn65.5 cm (20 weeks, 0 days) Abdominal Fclkbmgkbpqyz56.2 cm (20 weeks, 3 days) Femur Length [...] by Param Garnett on 09/20/2021 0947 Normal [facility] [employer] Superintendent C. Trachomatis, External Res [facility] 05-04-2021 C. Trachomatis, External Result Not detected [facility] [employer] Phone: HIV, External Resulton 05-04 HIV, External Result Non-Reactive [employer] Phone: Hepatitis B, External Result on 05-04-2021 Hep B, External Result Non-Reactive [employer] Phone: N. Gonorrhoeae, External Res ulton 05-04-2021 N. Gonorrhoeae, External Result Not detected [employer] Phone: No Panel Informationon 05-04 [employer] Phone: [employer] Phone: RPR, External Labon 05-04-20 RPR, External Result Non-Reactive [employer] Phone: Rubella Titer, External Resu lton 05-04-2021 Rubella Titer, External Result immune [employer] Phone: Cytologyon 06-05-2017 Cytology (NOTE)[id number] Y LABORATORIESCONSULTING PATHOLOGISTS [facility] [address] [place] [address]. [place], [place] [address] Fax: GYNECOLOGIC CYTOLOGY REPORTPatient Name: PARMINDER MASSEY#: [id number] #[id number]:1: Cervical material, (ThinPrep vial, Imaging-assisted review)Clinical HistoryNo LMP date givenContraceptive useR87.615 Unsatisfactory pap of cervixHigh Risk HPV DNA testing is requested if the diagnosis is ASC-USINTERPRETATIONCervi mariama material, (ThinPrep vial, Imaging-assisted review):Specimen Adequacy: Satisfactory for evaluation. - Endocervical/transformati on zone component present.Descriptive Diagnosis: Negative for intraepithelial lesion or malignancy.Shift in aniceto suggestive of bacterial vaginosis.Cytotechnologis t: HIC. Deca, CT(ASCP)Electronically Signed Outcd/06/14/2017 Normal [facility] DHEA Sulfateon 04-09-2017 DHEA Sulfate 107.0 ug/dL Normal 65-380 [facility] Comment on above: Result Comment: [facility] [address] [place] [address] Performed By: #### C YTCGP ####[address] [address] Cortisolon 04-06-2017 Cortisol 10.0 ug/dL Normal [facility] Comment on above: Result Comment: Georges isol Reference Range: AM 6.0-18.4 PM 2.7-10.[address] [address] Performed By: #### G ADILENE, CORTI, INSU, TSHX, PROL, FTST, DHES ####[address] [address] Glucoseon 04-06-2017 Glucose mass conc 83 mg/dL Normal 70-99 [facility] Comment on above: Result Comment: [facility] [address] [place] [address] Performed By: #### G ADILNEE, CORTI, INSU, TSHX, PROL, FTST, DHES ####[address] [address] Insulinon 04-06-2017 Insulin 11.1 mU/L Normal [facility] Comment on above: Performed By: #### G ADILENE, CORTI, INSU, TSHX, PROL, FTST, DHES ####[address] [address] Reference Range Normal [facility] Comment on above: Result Comment: Fast in.6-24.930 min: 20-42011 min: 29-8890 min: 26-25697 min: 22-[address] [address] Performed By: #### G ADILENE, CORTI, INSU, TSHX, PROL, FTST, DHES ####[address] [address] Collection Info. NOT REPORTED Normal [facility] Comment on above: Performed By: #### G ADILENE, CORTI, INSU, TSHX, PROL, FTST, DHES ####[address] [address] Prolactinon 04-06-2017 Prolactin 35.67 ug/L High 4.79-23.30 [facility] Comment on above: Result Comment: The presence of macroprolactin may cause interference in female patients with various endocrinological diseases or during .[address] [address] Performed By: #### G ADILENE, CORTI, INSU, TSHX, PROL, FTST, DHES ####[place] [address] TSH w/reflex to FT4on 2016 Thyroid stimulating hormone (TSH) 1.54 m[IU]/L Normal 0.30-5.00 [facility] Comment on above: Result Comment: [address] [address] Performed By: #### G ADILENE, CORTI, INSU, TSHX, PROL, FTST, DHES ####[place] [address] Testosterone, Freeon 017 Sex Horm Bind Glob 133 nmol/L Normal 30-135 [facility] Comment on above: Performed By: #### G ADILENE, CORTI, INSU, TSHX, PROL, FTST, DHES ####[address] [address] Testosterone 27 ng/dL Normal 20-70 [facility] Comment on above: Performed By: #### G ADILENE, CORTI, INSU, TSHX, PROL, FTST, DHES ####[address] [place] [address] Testosterone,Free 1.7 pg/mL Normal 0.8-7.4 [facility] Comment on above: Result Comment: The concentration of free testosterone is derived from a mathematical expression based on the constant for the binding of testosterone to albumin and/or sex hormone binding globulin.[address] [address] Performed By: #### G ADILENE, CORTI, INSU, TSHX, PROL, FTST, DHES ####[address] [place], [place] [id number] US PELVIS COMPLETEon 017 US PELVIS COMPLETE [...] by:MATT Batresigned by:Ethan Armstrong MD04/06/17Final result Normal [facility] Chlamydia/GC DNA, TPon 03-29 Chlamydia Probe, TP Negative Normal NEG [facility] Comment on above: Result Comment: CHLA MYDIA TRACHOMATIS DNA not detected by nucleic acid amplification. Performed By: #### C YTCGP ####[address] [address] Gonorrhea Probe, TP Negative Normal NEG [facility] Comment on above: Result Comment: NEIS SERIA GONORRHOEAE DNA not detected by nucleic acid amplification.[address] [address] Performed By: #### C YTC ####[address] [address] Cytologyon 03-28-2017 Cytology (NOTE)[id number] LABORATORIESCONSULTING PATHOLOGISTS CORPORATIONANATOMIC [id number] [place] [phone] Fax: GYNECOLOGIC CYTOLOGY REPORTPatient Name: PARMINDER MASSEY#: [id number] #[id number]:1: Cervical material, (ThinPrep vial, Imaging-assisted review)Clinical HistoryNo LMP date ueqgiF29.4 Encounter for screening for malignant neoplasm of [...] t: SZMARYSE. ALFREDA Larry(ASCP)Electronically Signed Outmk/04/04/2017 Normal [facility] Vaginitis DNA Probeon 2016 Vaginitis DNA [...] of vaginitis/vaginosis. Report Status FINAL 03/28/2017 Normal [facility] Comment on above: Performed By: #### V AGDNA ####[id number] [place] [id number] Vital Signs Date Time Vital Sign Value Performing Clinician Facility 07-23-2024 10:07-0500 Body mass index (BMI) [Ratio] 27.29 kg/m2 Maulik Floro CNM Work Phone: [facility] 07-23-2024 10:07-0500 Body weight 74.39 kg Maulik Floro CNM Work Phone: [facility] 07-23-2024 10:07-0500 Diastolic blood pressure 80 mm[Hg] Maulik Floro CNM Work Phone: [facility] 07-23-2024 10:07-0500 Systolic blood pressure 120 mm[Hg] Maulik Floro CNM Work Phone: [facility] 06-25-2024 10:32-0500 Body mass index (BMI) [Ratio] 25.79 kg/m2 Maulik Floro CNM Work Phone: [facility] 06-25-2024 10:32-0500 Body weight 70.31 kg Maulik Floro CNM Work Phone: [facility] 06-25-2024 10:32-0500 Diastolic blood pressure 80 mm[Hg] Maulik Floro CNM Work Phone: [facility] 06-25-2024 10:32-0500 Systolic blood pressure 120 mm[Hg] Maulik Floro CNM Work Phone: [facility] 05-21-2024 09:23-0500 Body mass index (BMI) [Ratio] 24.13 kg/m2 Maulik Floro CNM Work Phone: [facility] 05-21-2024 09:23-0500 Body weight 65.77 kg Maulik Floro CNM Work Phone: [facility] 05-21-2024 09:23-0500 Diastolic blood pressure 80 mm[Hg] Maulik Floro CNM Work Phone: [facility] 05-21-2024 09:23-0500 Systolic blood pressure 120 mm[Hg] Maulik Floro CNM Work Phone: [facility] 04-23-2024 09:26-0400 Body mass index (BMI) [Ratio] 22.63 kg/m2 Maulik Floro CNM Work Phone: [facility] 04-23-2024 09:26-0400 Body weight 61.69 kg Maulik Floro CNM Work Phone: [facility] 04-23-2024 09:26-0400 Diastolic blood pressure 70 mm[Hg] Maulik Floro CNM Work Phone: [facility] 04-23-2024 09:26-0400 Systolic blood pressure 112 mm[Hg] Maulik Floro CNM Work Phone: [facility] 03-19-2024 09:31-0400 Body mass index (BMI) [Ratio] 21.8 kg/m2 Maulik Floro CNM Work Phone: [facility] 03-19-2024 09:31-0400 Body weight 59.42 kg Maulik Floro CNM Work Phone: [facility] 03-19-2024 09:31-0400 Diastolic blood pressure 72 mm[Hg] Maulik Floro CNM Work Phone: [facility] 03-19-2024 09:31-0400 Systolic blood pressure 112 mm[Hg] Maulik Floro CNM Work Phone: [facility] 12-10-2021 07:07-0400 Body temperature 98.1 [degF] Rodo Simmons APRN - CNM Work Phone: [facility] 12-10-2021 07:07-0400 Diastolic blood pressure 65 mm[Hg] Rodo Simmons APRN - CNM Work Phone: [facility] 12-10-2021 07:07-0400 Heart rate 81 /min Rodo Mason CNM Work Phone: [facility] [employer] 12-10-2021 07:07-0400 Respiratory rate 18 /min Rodo Mason CNM Work Phone: [facility] [employer] 12-10-2021 07:07-0400 Systolic blood pressure 114 mm[Hg] Rodo Mason CNM Work Phone: [facility] [employer] 12-08-2021 00:34-0400 SaO2% (BldA) [Mass fraction] 94 % Rodo Mason CNM Work Phone: [facility] [employer] 12-07-2021 05:40-0400 Body height 165.1 cm Rodo Mason CNM Work Phone: [facility] [employer] 12-07-2021 05:40-0400 Body mass index (BMI) [Ratio] 30.12 kg/m2 Rodo Mason CNM Work Phone: [facility] [employer] 12-07-2021 05:40-0400 Body weight 82.1 kg Rodo Mason CNM Work Phone: [facility] [employer] Encounters Encounter Date Encounter Type Care Provider [...] Evaluation and management of inpatient RODO SHAW [facility] Start: 12-07-2021 End: 12-10-2021 Evaluation and management of inpatient Rodo Simmons VIOLENT CRIMES DETECTIVE - CNM Work Phone: [facility] Labor and Delivery Comment on above: Third trimester preg corey Start: 06-24-2021 End: 06-24-2021 ambulatory ARINA LEIGHO Facility: Start: 06-06-2017 End: 06-06-2017 Ambulatory [facility] Start: 04-06-2017 End: 04-07-2017 Ambulatory [facility] Start: 03-28-2017 End: 03-29-2017 [facility] Procedures Date Procedure Procedure Detail Performing Clinician Start: 07-27-2024 ALL CBC WITH AUTO DIFF Narayan Juan DO Work Phone: Start: 12-08-2021 Blood count complete automated Maulik Leigho VIOLENT CRIMES DETECTIVE - CNM Work Phone: Start: 12-08-2021 RHO(D) IMMUNE GLOBUL IN, Maulik Olgao VIOLENT CRIMES DETECTIVE - CNM Work Phone: Start: 12-07-2021 SURGICAL PATHOLOGY REPORT Matt Light MD Work Phone: Start: 12-07-2021 Blood count complete auto&auto difrntl wbc Rodo Shaw VIOLENT CRIMES DETECTIVE - CNM Work Phone: Start: 12-07-2021 biophysical pr ofile w/o non-stress testing Rodo Simmons VIOLENT CRIMES DETECTIVE - CNM Work Phone: Start: 12-07-2021 Drug tst prsmv instr mnt chem analyzers pr date Rodo Monaeemir [facility] Work Phone: Start: 12-07-2021 Urinalysis microscop ic only Rodo Simmons [facility] Work Phone: Start: 12-07-2021 Urnls dip stick/tabl et rgnt auto w/o microscopy Rodo Simmons [facility] Work Phone: Start: 11-10-2021 GBS, EXTERNAL RESULT Sd storical Provider Start: 09-22-2021 ABO, EXTERNAL RESULT Hi storical Provider MD Start: 09-22-2021 RH FACTOR, EXTERNAL RESULT Historical Provider MD Start: 09-21-2021 RHOGAM, EXTERNAL RESULT Historical Provider MD Start: 05-04-2021 C. TRACHOMATIS, EXTE RNAL RESULT Historical Provider MD Start: 05-04-2021 HEPATITIS B, EXTERNA L RESULT Historical Provider MD Start: 05-04-2021 HIV, EXTERNAL RESULT Sd storical Provider Start: 05-04-2021 N. GONORRHOEAE, EXTE RNAL RESULT Historical Provider MD Start: 05-04-2021 RPR, EXTERNAL RESULT Sd storical Provider Start: 05-04-2021 RUBELLA TITER, EXTER NAL RESULT Historical Provider MD Start: 06-05-2017 Microscopic observat ion [Identifier] in Cervix by Cyto stain Rodo Simmons [facility] Work Phone: Start: 04-06-2017 CORTISOL TOTAL SONU [...] AM EST Routine [facility] [address] [place] [id number] Maulik Del Toro, CNM [address] [place] [address] [facility] Start: 07-23-2024 End: 07-23-2024 Patient encounter procedure 07/23/2024 10:00 AM EST Routine [facility] [address] [place] [id number] Maulik Del Toro, CNM [address] [place] [address] [facility] Start: 06-24-2024 End: 06-24-2024 Patient encounter procedure [facility] Comment on above: Arrived Start: 05-21-2024 End: 05-21-2024 Patient encounter procedure [facility] Comment on above: Arrived Start: 04-23-2024 End: 04-23-2024 Professional / ancillary services management 04/23/2024 10:00 AM EDT Ancillary Procedure [facility] [address] [address] [facility] Start: 04-23-2024 End: 04-23-2024 Patient encounter procedure [facility] Comment on above: Arrived Start: 03-19-2024 End: 03-19-2025 US for US OB 14+ weeks anatomy scan Imaging Routine related condition in second trimester Expected: 03/19/2024, Expires: 03/19/2025 [facility] Work Phone: Comment on above: Expected: 03/19/2024 , Expires: 03/19/2025 Start: 03-16-2024 Influenza vaccination Influenza Vacc ine (#1) [facility] Start: 03-04-2024 Screening for malign ant neoplasm of cervix [facility] Start: 03-16-2022 Influenza vaccination Flu vacc ine (Season Ended) [facility] Start: 2020 Screening for malign ant neoplasm of cervix [facility] Start: 06-05-2020 Screening for malign ant neoplasm of cervix Pap smear [facility] Start: 2009 DTaP/Tdap/Td vaccine (1 - Tdap) DTaP/Tdap/Td vaccine (1 - Tdap) [facility] Start: 2008 Hepatitis C screening Hepatitis C sc reen [facility] Start: 2005 HIV screening [facility] Start: 2002 Depression Screen Depression Screen [facility] Start: 1995 COVID-19 Vaccine (1) COVID-19 Vaccin e (1) [facility] Start: 1991 Varicella vaccine (1 of 2 - 2-dose childhood series) Varicella vaccine (1 of 2 - 2-dose childhood series) [facility] [employer] Nonrebreather mask oxygen Nonrebreather mask oxygen Respiratory Care Routine As directed - RT (PRN) until discontinued starting 12/07/2021 [facility] [employer] Phone: Comment on above: As directed - RT (CA N) until discontinued starting 12/07/2021 Oxygen therapy [Mini [facility] Data Set] Initiate Oxygen Therapy Protocol Respiratory Care Routine As Needed until discontinued starting 12/07/2021 [employer] Phone: Comment on above: As Needed until disc ontinued starting 12/07/2021 RHOGAM RHOGAM POSTPAR MARCELINO Blood Bank [employer] Label Print 12/08/2021 7:15 AM EDT [employer] Phone: Spirometry panel Incentive drea metry Respiratory Care Routine Every 2hr while awake until discontinued starting 12/08/2021 [employer] Phone: Comment on above: Every 2hr while awak e until discontinued starting 12/08/2021 Immunizations Immunization Date Immunization Notes Care Provider Fa cili 12-07-2021 diphtheria, tetanus toxoids and acellular pertussis vaccine, unspecified formulation Rodo Simmons [employer] Work Phone: [employer] Phone: 12-07-2021 measles, mumps and rubella virus vaccine Rodo Simmons [employer] Work Phone: [employer] Phone: Payers Date Payer Category Payer Private Health Insurance [employer] [id number] 2022 Unknown [employer] [id number] 2022-Present [address] [place] [address] [id number] 2022 Unknown [id number] 2016 Unknown [id number] 1990 Unknown [id number] 2.16.840.1.818258.3.579.2. 593 1990 Unknown [id number] 2.16.840.1.775392.3.579.2. 173 1990 Unknown [id number] 2.16.840.1.697916.3.579.2. 9 1990 Unknown [id number] 2.16.840.1.847691.3.579.2. 9 1990 Unknown [id number] 2.16.840.1.084119.3.579.2. 9 1990 Unknown [id number] 2.16.840.1.084479.3.579.2. 9 1990 Unknown [id number] 2.16.840.1.876628.3.579.2. 1258 1990 Unknown [id number] 2.16.840.1.479636.3.579.2. 1258 1990 Unknown [id number] 2.16.840.1.261522.3.579.2. 1258 1990 Unknown [id number] 2.16.840.1.874975.3.579.2. 9 1990 Unknown [id number] 2.16.840.1.288007.3.579.2. 1258 1990 Unknown [id number] 2.16.840.1.130870.3.579.2. 1258 1990 Unknown [id number] 2.16.840.1.030960.3.579.2. 1258 1959 Unknown [id number] Social History Date Type Detail Facility Start: 03-28-2017 End: 06-20-2023 Tobacco smoking status KYIS Ex-smoker [facility] [employer] Phone: History of tobacco use Cigarette Smoker [facility] [employer] Phone: Start: 03-28-2017 End: 01-29-2024 Cigarettes smoked current (pack per day) - Reported 1 [employer] Phone: Start: 03-28-2017 End: 06-20-2023 Tobacco use and exposure Smokeless tobacco non-user [employer] Phone: Start: 12-07-2021 Alcohol intake Ex-drinker (finding) [employer] Phone: Start: 1990 Sex Assigned At Not on file [facility] [employer] Phone: Start: 11-27-2021 End: 12-07-2021 Exposure to SARS-CoV-2 (event) Not sure [employer] Phone: History of tobacco use Current smoker [...] a routine visit. documented in this encounter [facility] 06-25-2024 History of Present illness Narrative Subjective [...] a routine visit. documented in this encounter [facility] 06-17-2024 Telephone encounter Note Licha arciniega needs lab result that has her blood type on it and Demo sheet faxed to [phone] [facility] 06-17-2024 Miscellaneous Notes Licha [facility] needs lab result that has her blood type on it and Demo sheet faxed to [phone] documented in this encounter [facility] 05-21-2024 History of Present illness Narrative Subjective [...] a routine visit. documented in this encounter [facility] 04-23-2024 History of Present illness Narrative Subjective [...] a routine visit. documented in this encounter [facility] 03-19-2024 History of Present illness Narrative Subjective [...] a routine visit. documented in this encounter [facility] 12-10-2021 Hospital Discharge instructions Lorin Arias RN - 12/10/2021 Follow-up with your OB doctor as specified. [facility] OB Department phone: Chikis Del Toro, MSN, VIOLENT CRIMES DETECTIVE, CNM [place] [address] DIET Eat a well balanced diet focusing on foods high in fiber and protein. Drink plenty of fluids especially water. To avoid constipation you may take a mild stool softener as recommended by your doctor or beam dyer operator. ACTIVITY Gradually increase your activity. Resume exercise regimen only after advice by your doctor or beam dyer operator. Avoid lifting anything heavier than a gallon of milk for SIX weeks. Avoid driving until your doctor or beam dyer operator has given their approval. Rise slowly from [...] medications as recommended by your doctor or beam dyer operator for pain If you develop a warm, [...] vitamins as directed by your doctor or beam dyer operator. Refer to the booklet in the folder/binder for more information. If you feel you need more assistance or have questions, please call Vibha Crump IBCLC, technical healthcare consultant, at or the OB department to [...] you see them. If you have a KENO negative pressure wound dressing please leave the [...] your calf. documented in this encounter [facility] [employer] Work Phone: 12-10-2021 History of Present illness [...] urine sample. 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 ACP-Advance Directive ACP-Power of Bill Hiker Latest Code Status on File Code Status Date Activated Date Inactivated Comments Full Code 12/07/2021 11:34 PM Full Code 12/07/2021 5:30 AM 12/07/2021 11:33 PM Additional Source Comments INFORMATION SOURCE (unrecogn ized section and content) DATE CREATED AUTHOR 01/08/2018 [place] DATE CREATED AUTHOR AUTHOR'S ORGANIZ ATION 12/02/2021 [facility] dical Specialist DATE CREATED AUTHOR AUTHOR'S ORGANIZ ATION 12/08/2021 [facility] DATE CREATED AUTHOR AUTHOR'S ORGANIZ ATION 01/15/2022 [facility] DATE CREATED AUTHOR AUTHOR'S ORGANIZ ATION 07/28/2024 [facility] d[facility] Specialists EPIC Reason for Visit (unrecogniz ed section and content) Reason Comments Contractions Specialty Diagnoses / Procedures Referred By Contac t Referred To Contact Diagnoses Uterine contractions Term intolerance to labor, delivered, current hospitalization Rodo Shaw, VIOLENT CRIMES DETECTIVE - CNM [address] [place] [address] [facility] [id number] [place] [address] Referral ID Status Reason Start Date Expiration Date Visits Re quested Visits Authorized [id number] 1 1 Ordered Prescriptions (unrec ognized section [...] RN) 2099 (Due - Provider: Kaushik Lindsey [facility]) 2099 (Due - Provider: Kaushik Lindsey [facility]) sodium chloride flush 0.9 % [...] (Due) 899 (Due)2099 (Due) 899 (Due)2099 (Due) bweteor-khjqov-hwnzv pertussis (BOOSTRIX) injection 0.5 mL 0.5 mL, [...] BE BASED ON THE PRIMARY CLINICAL RECORDS. [employer] provides no warranty or guarantee of the accuracy or completeness of information in this document.
[2024-08-02 13:05] VITALS: BP 118/72; PULSE 108
== END 2024-08-02 13:30 | disposition home or self-care (01) ==
LOC: FBCO 06:59 → FBC 12:59
PROVIDERS: PCP Midwife; Visit Provider Obstetrics & Gynecology
DX: O26.893 Other specified pregnancy related conditions, third trimester (principal); Z3A.33 33 weeks gestation of pregnancy
CPT/HCPCS: 59025

== ENCOUNTER 2024-08-06 00:14 | Outpatient (OUT) | payer OTHER, SELFPAY ==
--- NOTE | 2024-08-06 | US_ITS ---
[address] [address] Patient Name: ALTON LILLY MRN: [facility]:[id number] date: 1990 Sex: F Assigned Patient Location: [facility] Current Patient Location: Accession/Order Number: [id number] Exam Date: 08/06/2024 09:05 Report Date: 08/06/2024 09:59 At the request of: JEAN DICKERSON Procedure: US OB BPP w non-stress EXAMINATION: US OB BPP w non-stress HISTORY:Pre-term labor COMPARISON: Ultrasound OB biophysical 07/30/2024 TECHNIQUE: Ultrasound biophysical profile was performed in the radiology department. BREATHING MOVEMENTS: 2 GROSS BODY MOVEMENTS: 2 TONE: 2 QUALITATIVE AMNIOTIC FLUID VOLUME: 2 PRESENTATION: CEPHALIC HEART RATE: 137.76 bpm AMNIOTIC FLUID VOLUME: 13.13 cm GESTATIONAL AGE: 34 weeks 3 days US/US OB BPP w non-stress IMPRESSION: 1. Total biophysical profile score: 8 2. Slightly dilated right renal pelvis, 8 mm in width. Electronically authenticated by: DEN SOFIA Date: 08/06/2024 09:59
--- OUTSIDE RECORDS SUMMARY | 2024-08-06 00:18 | XMS_ITS | CCD ---
Author Organization [facility] Care Team Providers Care [employer] Bi Architect Name Role Phone SONU GONZALEZ Unavailable Unavailable [...] Propensity to adverse reactions to substance 12-07-2021 [facility] Medications Current Medications Medication Drug Class(es) [...] Active docusate sodium 50 mg / sennosides, snf 8.6 mg oral tablet (1 source) Start: [...] WITH AUTO DIFFon BASOPHILS ABSOLUTE AUTO 0 [facility] Basophils/100 WBC (Bld) 0.2 % 0.2 - 2.0 % [facility] Eosinophils/100 WBC (Bld) 0.2 % Low 0.9 - 7.0 % [facility] Erythrocyte distribution width (RBC) [Ratio] 12.6 % 11.0 - 15.0 % [facility] Hematocrit (Bld) [Volume fraction] 33.1 % Low 36.0 - 48.0 % [facility] Hemoglobin (Bld) [Mass/Vol] 11.1 g/dL Low 12.0 - 16.0 g/dL [facility] IMMATURE GRANULOCYTES ABS AUTO 0.16 High [facility] Immature granulocytes/100 WBC (Bld) 1.1 % High 0.0 - 0.5 % [facility] Interpretation and review of laboratory results Abnormal [facility] LYMPHOCYTES ABSOLUTE AUTO 1.5 [facility] Lymphocytes/100 WBC (Bld) 10.3 % Low 20.5 - 60.0 % [facility] MCH (RBC) [Entitic mass] 30.6 pg 26.7 - 34.0 pg [facility] MCHC (RBC) [Mass/Vol] 33.5 g/dL 29.9 - 35.2 g/dL [facility] MCV (RBC) [Entitic vol] 91.2 fL 81.0 - 99.0 fL [facility] MONOCYTES ABSOLUTE AUTO 0.9 High [facility] Monocytes/100 WBC (Bld) 6.3 % 1.7 - 12.0 % [facility] NEUTROPHILS ABSOLUTE AUTO 11.8 High [facility] Neutrophils/100 WBC (Bld) 81.9 % High 43.0 - 75.0 % [facility] Platelet mean volume (Bld) [Entitic vol] 10.2 fL 9.5 - 13.5 fL [facility] TBH EO # 0 [facility] TBH PLT [facility] RBC 3.63 Low [facility] TB WBC 14.4 High [facility] US for pregnancyon TITLE [...] report is generated using voice recognition reporting (BasharJobscribe). On occasion PowerScribe erroneously drops words from [...] Duran on 06-06-2024 [facility] [employer] Work Phone: US OB LIMITED 1+ FETUSESon [...] report is generated using voice recognition reporting (Tins.ly). On occasion Tins[employer]ly erroneously drops words from the report or replaces the spoken word with similar sounding words. Please call with any questions/concerns regarding this report.* Dictated and transcribed 06/05/24/dpd This report has been electronically signed and approved by the interpreting radiologist. Normal Not Available US for pregnancyon Radiology Study observation (narrative) [facility] US OB 14+ WEEKS [...] days FINDINGS: AUA: 7 weeks, 6 days DL by US: 09/10/2024 Uterus: 8.6 x 7.7 x 5.1 cm. There is a gestational sac and yolk sac within the uterine fundus. Live embryo within the gestational sac without evident abnormality. Mean sac diameter 2.8 cm. Yolk sac diameter 0.3 cm. Catahoula rump length is 1.5 cm. heart rate [...] CONSULTATION Patient Name: ALTON DAVIS Cj Rec: [id number] Path Number: [id number] [facility] ANATOMIC PATHOLOGY [address] [place] [address]. [place], [place] [address] [facility] BIOPHYSICAL PROFILE WO NON STRESS TESTINGon 12-09-2021 [...] Ajit Warner MD 12/09/21 Final result Normal [facility] Biophysical profile score 8/8. KUNAL 7.1. The findings were sent to the Radiology Results Communication Center at 10:15 am on 12/07/2021 to be communicated to a licensed caregiver. [facility] EXAMINATION: BIOPHYSICAL PROFILE WITHOUT NON-STRESS TEST [...] fluid index 7.1 with MVP 2.8 cm. [facility] Ajit Warner MD - 12/09/2021 EXAMINATION: [...] to be communicated to a licensed caregiver. [employer] Phone: BIOPHYSICAL PROFILE WO NON STRESS TESTINGOrdered By: Ajit Warner on 12-09-2021 [facility] [employer] Phone: CBCon 12-08-2021 Erythrocyte distribution width (RBC) [Ratio] 14.3 % Normal 11.8-14.4 [facility] Comment on above: Performed By: #### C BC #### [address] [place] [id number] Director Custom: Mohamud Lucas MD Hematocrit (Bld) [Volume fraction] 26.3 % Low 36.3-47.1 [facility] Comment on above: Performed By: #### C BC #### [facility] [address] [place] [address] [place] [id number] Director Custom: Mohamud Lucas MD Hemoglobin (Bld) [Mass/Vol] 8.5 g/dL Low 11.9-15.1 [facility] Comment on above: Performed By: #### C BC #### [address] [place] [id number] Director Custom: Mohamud Lucas MD MCH (RBC) [Entitic mass] 27.0 pg Normal 25.2-33.5 [facility] Comment on above: Performed By: #### C BC #### [facility] [address] [place], [place] [id number] Director Custom: Mohamud Lucas MD MCHC (RBC) [Mass/Vol] 32.3 g/dL Normal 28.4-34.8 [facility] Comment on above: Performed By: #### C BC #### [facility] [address] [place], [place] [id number] Director Custom: Mohamud Lucas MD MCV (RBC) [Entitic vol] 83.5 fL Normal 82.6-102.9 [facility] Comment on above: Performed By: #### C BC #### [address] [place], [place] [id number] Director Custom: Mohamud Lucas MD NRBC Automated 0.0 per 100 WBC Normal 0.0 [facility] Comment on above: Performed By: #### C BC #### [address] [place], [place] [id number] Director Custom: Mohamud Lucas MD Platelet mean volume (Bld) [Entitic vol] 11.1 fL Normal 8.1-13.5 [facility] Comment on above: Performed By: #### C BC #### [address] [place], [place] [id number] Director Custom: Mohamud Lucas MD Platelets (Bld) [#/Vol] 219 10*3/uL Normal 138-453 [facility] Comment on above: Performed By: #### C BC #### [address] [place], [place] [id number] Director Custom: Mohamud Lucas MD RBC (Bld) [#/Vol] 3.15 10*6/uL Low 3.95-5.11 [facility] Comment on above: Performed By: #### C BC #### [address] [place] [id number] Director Custom: Mohamud Lucas MD WBC (Bld) [#/Vol] 20.6 10*3/uL High 3.5-11.3 [facility] Comment on above: Performed By: #### C BC #### [facility] [address] [place] [address] Director Custom: Mohamud Lucas MD Hematocrit (Bld) [Volume fraction] 26.3 % Low 36.3 - 47.1 % [facility] Hemoglobin.gastroin testinal spec 1 Ql (Stl) 8.5 g/dL Low 11.9 - 15.1 g/dL [facility] Interpretation and review of laboratory results Abnormal [facility] MCH (RBC) [Entitic mass] 27.0 pg 25.2 - 33.5 pg [facility] MCHC (RBC) [Mass/Vol] 32.3 g/dL 28.4 - 34.8 g/dL [facility] MCV (RBC) [Entitic vol] 83.5 fL 82.6 - 102.9 fL [facility] NRBC Automated 0.0 0.0 per 100 WBC [facility] Platelet distribution width (Bld) [Ratio] 14.3 % 11.8 - 14.4 % [facility] Platelet mean volume (Bld) [Entitic vol] 11.1 fL 8.1 - 13.5 fL [facility] Platelets (Bld) [#/Vol] 219 10*3/uL [facility] RBC (Bld) [#/Vol] 3.15 10*6/uL Low 3.95 - 5.1 1 m/uL [facility] WBC (Bld) [#/Vol] 20.6 10*3/uL High [facility] RhIg Workup (RhoGam)on 12-08 RhIg Workup (RhoGam) Blood Component Type MANUFACTURED PRODUCT Units Ordered 1 ABO/Rh(D) A NEGATIVE Antibody Screen NEGATIVE History Check NO PREVIOUS HISTORY Rhig Eligibility Patient Is A Candidate For Injection Eugenie NEGATIVE Du Antigen NOT TESTED Unit Number [id number] Blood Component Type RHIG Unit Division 00 Status of Unit REL FROM ALLOC Transfusion Status OK TO TRANSFUSE Normal [facility] Comment on above: Performed By: #### R HIGW #### [facility] [address] [place] [id number] Director Custom: Mohamud Lucas MD CBC auto differentialon 11-14 Absolute [facility] # [facility].08 [facility] Absolute Immature Granulocyte 0.08 [facility] Absolute Lymph # 1.81 [facility] Absolute Mclennan # 0.88 [facility] Basophils (Bld) [#/Vol] 0.04 10*3/uL [facility] Basophils/100 WBC (Bld) 0 % 0 - 2 % [facility] Eosinophils/100 WBC (Bld) 1 % 1 - 4 % [facility] Hematocrit (Bld) [Volume fraction] 32.8 % Low 36.3 - 47.1 % [facility] Hemoglobin.gastroin testinal spec 1 Ql (Stl) 10.3 g/dL Low 11.9 - 15.1 g/dL [facility] Immature granulocytes/100 WBC (Bld) 1 % High 0 [facility] Interpretation and review of laboratory results Abnormal [facility] Lymphocytes/100 WBC (Bld) 15 % Low 24 - 43 % [facility] MCH (RBC) [Entitic mass] 26.5 pg 25.2 - 33.5 pg [facility] MCHC (RBC) [Mass/Vol] 31.4 g/dL 28.4 - 34.8 g/dL [facility] MCV (RBC) [Entitic vol] 84.5 fL 82.6 - 102.9 fL [facility] Monocytes/100 WBC (Bld) 7 % 3 - 12 % [facility] NRBC Automated 0.0 0.0 per 100 WBC [facility] Platelet distribution width (Bld) [Ratio] 14.2 % 11.8 - 14.4 % [facility] Platelet mean volume (Bld) [Entitic vol] 11.9 fL 8.1 - 13.5 fL [facility] Platelets (Bld) [#/Vol] 259 10*3/uL [facility] RBC (Bld) [#/Vol] 3.88 10*6/uL Low 3.95 - 5.1 1 m/uL [facility] Segmented neutrophils/100 WBC (Bld) 76 % High 36 - 65 % [facility] Segs Absolute 9.01 High [facility] WBC (Bld) [#/Vol] 11.9 10*3/uL High [facility] CBC with Diffon 12-07-2021 Abs. Basophil 0.04 k/uL Normal 0.00-0.20 [facility] Comment on above: Performed By: #### C DP #### [facility] [address] [place] [address] [place] [address] Director Custom: Mohamud Lucas MD Abs.Imm.Granulocyte 0.08 k/uL Normal 0.00-0.30 [facility] Comment on above: Performed By: #### C DP #### [facility] [address] [place] [address] [place] [id number] Director Custom: Mohamud Lucas MD Abs.Neutrophil (Seg) 9.01 k/uL High 1.50-8.10 [facility] Comment on above: Performed By: #### C DP #### [facility] [address] [place] [address] Dr. [place], [place] [id number] Director Custom: Mohamud Lucas MD Basophils/100 WBC (Bld) 0 % Normal 0-2 [facility] Comment on above: Performed By: #### C DP #### [facility] [address] [place] [address] [place] [id number] Director Custom: Mohamud Lucas MD Eosinophils (Bld) [#/Vol] 0.08 10*3/uL Normal 0.00-0.44 [facility] Comment on above: Performed By: #### C DP #### [facility] [address] [place] [address] Dr. [place], [place] [id number] Director Custom: Mohamud Lucas MD Eosinophils/100 WBC (Bld) 1 % Normal 1-4 [facility] Comment on above: Performed By: #### C DP #### [address] [place], [place] [id number] Director Custom: Mohamud Lucas MD Erythrocyte distribution width (RBC) [Ratio] 14.2 % Normal 11.8-14.4 [facility] Comment on above: Performed By: #### C DP #### [address] [place], [place] [id number] Director Custom: Mohamud Lucas MD Hematocrit (Bld) [Volume fraction] 32.8 % Low 36.3-47.1 [facility] Comment on above: Performed By: #### C DP #### [address] [place], [place] [id number] Director Custom: Mohamud Lucas MD Hemoglobin (Bld) [Mass/Vol] 10.3 g/dL Low 11.9-15.1 [facility] Comment on above: Performed By: #### C DP #### [address] [place], [place] [id number] Director Custom: Mohamud Lucas MD Immature granulocytes/100 WBC (Bld) 1 % High 0 [facility] Comment on above: Performed By: #### C DP #### [facility] [address] [place] [address] Dr. [place], [place] [id number] Director Custom: Mohamud Lucas MD Lymphocytes (Bld) [#/Vol] 1.81 10*3/uL Normal 1.10-3.70 [facility] Comment on above: Performed By: #### C DP #### [facility] [address] [place] [address] Dr. [place], [place] [id number] Director Custom: Mohamud Lucas MD Lymphocytes/100 WBC (Bld) 15 % Low 24-43 [facility] Comment on above: Performed By: #### C DP #### [facility] [address] [place], [place] [id number] Director Custom: Mohamud Lucas MD MCH (RBC) [Entitic mass] 26.5 pg Normal 25.2-33.5 [facility] Comment on above: Performed By: #### C DP #### [facility] [address] [place], [facility] Director Custom: Mohamud Lucas MD MCHC (RBC) [Mass/Vol] 31.4 g/dL Normal 28.4-34.8 [facility] Comment on above: Performed By: #### C DP #### [facility] [address] [place], [facility]83 Director Custom: Mohamud Lucas MD MCV (RBC) [Entitic vol] 84.5 fL Normal 82.6-102.9 [facility] Comment on above: Performed By: #### C DP #### [facility] [address] [place], [place] [id number] Director Custom: Mohamud Lucas MD Monocytes (Bld) [#/Vol] 0.88 10*3/uL Normal 0.10-1.20 [facility] Comment on above: Performed By: #### C DP #### [facility] [address] [place], [place] [id number] Director Custom: Mohamud Lucas MD Monocytes/100 WBC (Bld) 7 % Normal 3-12 [facility] Comment on above: Performed By: #### C DP #### [facility] [address] [place] [id number] Director Custom: Mohamud Lucas MD Neutrophil (Seg) 76 % High 36-65 [facility] Comment on above: Performed By: #### C DP #### [facility] [address] [place], [facility] Director Custom: Mohamud Lucas MD NRBC Automated 0.0 per 100 WBC Normal 0.0 [facility] Comment on above: Performed By: #### C DP #### [facility] [address] [place], [facility]83 Director Custom: Mohamud Lucas MD Platelet mean volume (Bld) [Entitic vol] 11.9 fL Normal 8.1-13.5 [facility] Comment on above: Performed By: #### C DP #### [facility] [address] [place], [facility] Director Custom: Mohamud Lucas MD Platelets (Bld) [#/Vol] 259 10*3/uL Normal 138-453 [facility] Comment on above: Performed By: #### C DP #### [facility] [address] [place] [address] Dr. Zepeda, [facility]83 Director Custom: Mohaumd Lucas MD RBC (Bld) [#/Vol] 3.88 10*6/uL Low 3.95-5.11 [facility] Comment on above: Performed By: #### C DP #### [facility] [address] [place] [address] Dr. Zepeda, [facility]83 Director Custom: Mohamud Lucas MD WBC (Bld) [#/Vol] 11.9 10*3/uL High 3.5-11.3 [facility] Comment on above: Performed By: #### C DP #### [facility] [address] [place], [facility] Director Custom: Mohamud Lucas MD DRUG SCREEN MULTI URINEon Amphetamine Screen, Ur Negative NEGATIVE [facility] Barbiturate Screen, Ur Negative NEGATIVE [facility] Benzodiazepine Screen, Urine Negative NEGATIVE [facility] Buprenorphine Urine Negative NEGATIVE [facility] Cannabinoid Scrn, Ur Negative NEGATIVE [facility] Cocaine Metabolite, Urine Negative NEGATIVE [facility] Methadone Screen, Urine Negative NEGATIVE [facility] Methamphetamine, Urine Negative NEGATIVE [facility] Opiates, Urine Negative NEGATIVE [facility] Oxycodone Screen, Ur Negative NEGATIVE [facility] Phencyclidine, Urine Negative NEGATIVE [facility] Propoxyphene, Urine Negative NEGATIVE [facility] Tricyclic Antidepressants, Urine Negative NEGATIVE [facility] Comment on above: Drug screen results are to be used for medical purposes only. All positive results are unconfirmed. Testing for employment or legal uses should be sent to a reference laboratory for confirmation. [facility] Drug Scr, Abuse, Uron 2021 Amphetamine(s),Ur Negative Normal NEG [facility] Comment on above: Performed By: #### D AU #### [facility] [address] [place] [address] [place] [id number] Director Custom: Mohamud Lucas MD Barbiturate(s),Ur Negative Normal NEG [facility] Comment on above: Performed By: #### D AU #### [facility] [address] [place], [facility]83 Director Custom: Mohamud Lucas MD Benzodiazepine(s) Negative Normal [facility] Comment on above: Performed By: #### D AU #### [facility] [address] [place] [address] Dr. Zepeda, [facility]83 Director Custom: Mohamud Lucas MD Buprenorphrine, Ur Negative Normal NEG [facility] Comment on above: Performed By: #### D AU #### [facility] [address] [place], [facility]83 Director Custom: Mohamud Lucas MD Cannabinoid(s),Ur Negative Normal NEG [facility] Comment on above: Performed By: #### D AU #### [facility] [address] [place] [id number] Director Custom: Mohamud Lucas MD Cocaine Metabolite Negative Normal [facility] Comment on above: Performed By: #### D AU #### [facility] [address] [place], [place] [id number] Director Custom: Mohamud Lucas MD Methadone Ql (U) Negative Normal NEG [facility] Comment on above: Performed By: #### D AU #### [facility] [address] [place] [id number] Director Custom: Mohamud Lucas MD Methamphetamine, Ur Negative Normal NEG [facility] Comment on above: Performed By: #### D AU #### [facility] [address] [place] [id number] Director Custom: Mohamud Lucas MD Opiate(s), Ur Negative Normal NEG [facility] Comment on above: Performed By: #### D AU #### [facility] [address] [place], [facility]83 Director Custom: Mohamud Lucas MD Oxycodone, Urine Negative Normal NEG [facility] Comment on above: Performed By: #### D AU #### [facility] [address] [place] [address] Dr. Zepeda, [facility]83 Director Custom: Mohamud Lucas MD Phencyclidine, Ur Negative Normal [facility] Comment on above: Performed By: #### D AU #### [facility] [address] [place], [facility] Director Custom: Mohamud Lucas MD Propoxyphene,Urine Negative Normal NEG [facility] Comment on above: Performed By: #### D AU #### [facility] [address] [place] [id number] Director Custom: Mohamud Lucas MD Tricyclic antidepressants Screen Ql (U) Negative Normal [facility] Comment on above: Result Comment: Drug screen results are to be used for medical purposes only. All positive results are unconfirmed. Testing for employment or legal uses should be sent to a reference laboratory for confirmation. Performed By: #### D AU #### [address] [place] [address] Director Custom: Mohamud Lucas MD Microscopic Urinalysison - [facility] Bacteria, UA 2+ Abnormal None [facility] Epithelial Cells UA 2 TO 5 [facility] Interpretation and review of laboratory results Abnormal [facility] RBC, UA 0 TO 2 [facility] WBC, UA 2 TO 5 [facility] Yeast, UA PRESENCE NOTED Abnormal None [facility] OPERATIVE REPORTon OPERATIVE REPORT [address] [id number] OPERATIVE REPORT PATIENT NAME: ALTON DAVIS : 1990 MED REC NO: [id number] ROOM: 0208 ACCOUNT NO: [id number] ADMIT DATE: 12/07/2021 PROVIDER: Matt Light MD [...] section, low transverse uterine segment. ANESTHESIA: Epidural. CONCRETE INSPECTOR: Maulik Del Toro. ESTIMATED BLOOD LOSS: 600 [...] was extended in a semilunar fashion with baler operator's fingers. head was elevated and turned. [...] a running imbricating interlocking fashion. A few [id number] sutures were placed along the central inferior [...] were mentioned. MATT LIGHT MD [id number] Doc#: [id number] CC: Maulik Del Toro [facility] Surgical Pathologyon 022 Surgical Pathology [...] SURGICAL PATHOLOGY CONSULTATION Patient Name: ALTON DAVIS [facility] Rec: [id number] Path Number: [id number] [employer] [facility] ANATOMIC PATHOLOGY [address] [place] [id number] [facility] Comment on above: Performed By: #### P PPVS #### [employer] [address] [place] [id number] Director Custom: Dhaval Rao MD BIOPHYSICAL PROFILE WO NON STRESS TESTINGon 12-07-2021 Radiology Study observation (narrative) [employer] Work Phone: Urinalysison 12-07-2021 Bilirubin Urine Negative NEGATIVE [employer] [facility] [employer] Color, UA Yellow Yellow [facility] [employer] Glucose, Ur Negative NEGATIVE [facility] Interpretation and review of laboratory results Abnormal [facility] Ketones Ql (U) Negative NEGATIVE [facility] Leukocyte esterase Test strip Ql (U) Negative NEGATIVE [facility] Nitrite, Urine Negative NEGATIVE [facility] pH, UA 6.0 [facility] Protein, UA Negative NEGATIVE [facility] Specific [place], UA >1.030 High [facility] Turbidity UA Clear Clear [facility] Urine Hgb 1+ Abnormal NEGATIVE [facility] Urobilinogen, Urine Normal Normal [facility] Urinalysis, Routineon 2021 Bilirubin, SemiQt,Ur Negative Normal NEG [facility] Comment on above: Performed By: #### U MICAO, UA #### [facility] [address] [place], [place] [id number] Director Custom: Mohamud Lucas MD Blood, Urine 1+ Abnormal NEG [facility] Comment on above: Performed By: #### U MICAO, UA #### [facility] [address] [place], [facility]83 Director Custom: Mohamud Lucas MD Clarity (U) Clear Normal CLEAR [facility] Comment on above: Performed By: #### U MICAO, UA #### [facility] [address] [place], [facility] Director Custom: Mohamud Lucas MD Color (U) Yellow Normal YEL [facility] Comment on above: Performed By: #### U MICAO, UA #### [facility] [address] [place] [id number] Director Custom: Mohamud Lucas MD Glucose Ql (U) Negative Normal [facility] Comment on above: Performed By: #### U MICAO, UA #### [facility] [address] [place] [id number] Director Custom: Mohamud Lucas MD Ketones Ql (U) Negative Normal NEG [facility] Comment on above: Performed By: #### U MICAO, UA #### [facility] [address] [place] [id number] Director Custom: Mohamud Lucas MD Leukocyte esterase Test strip Ql (U) Negative Normal NEG [facility] Comment on above: Performed By: #### U MICAO, UA #### [facility] [address] [place] [id number] Director Custom: Mohamud Lucas MD Nitrite,Ur Negative Normal NEG [facility] Comment on above: Performed By: #### U MICAO, UA #### [facility] [address] [place] [address] [place] [id number] Director Custom: Mohamud Lucas MD PH,Ur 6.0 Normal 5.0-9.0 [facility] Comment on above: Performed By: #### U MICAO, UA #### [facility] [address] [place] [address] [place] [id number] Director Custom: Mohamud Lucas MD Protein Ql (U) Negative Normal NEG [facility] in Hospital Comment on above: Performed By: #### U MICAO, UA #### [facility] [address] [place] [address] [place] [id number] Director Custom: Mohamud Lucas MD Spec. [place],Ur >1.030 High 1.010-1.020 [facility] Comment on above: Performed By: #### U MICAO, UA #### [facility] [address] [place], [place] [id number] Director Custom: Mohamud Lucas MD Urobilinogen,Ur Normal Normal NORM [facility] Comment on above: Performed By: #### U MICAO, UA #### [facility] [address] [place], [place] [id number] Director Custom: Mohamud Lucas MD Urinalysis,Microon 05-25-202 2 ----- Normal [facility] Comment on above: Performed By: #### U SHAHNAZO, UA #### [facility] [address] [place] [id number] Director Custom: Mohamud Lucas MD Bacteria 2+ Abnormal NONE [facility] Comment on above: Performed By: #### U SHAHNAZO, UA #### [facility] [address] [place] [id number] Director Custom: Mohamud Lucas MD Epithelial cells LM Ql (Urine sed) 2 TO 5 Normal 0-25 [facility] Comment on above: Performed By: #### U SHAHNAZO, UA #### [facility] [address] [place] [address] [place] [address] Director Custom: Mohamud Lucas MD Urine RBC's 0 TO 2 Normal 0-2 [facility] Comment on above: Performed By: #### U MICAO, UA #### [facility] [address] [place] [address] Dr. Zepeda, [place] [id number] Director Custom: Mohamud Lucas MD Urine WBC's 2 TO 5 Normal 0-5 [facility] Comment on above: Performed By: #### U MICAO, UA #### [facility] [address] [place] [address] [place] [id number] Director Custom: Mohamud Lucas MD Yeast PRESENCE NOTED Abnormal [facility] Comment on above: Performed By: #### U MICAO, UA #### [facility] [address] [place] [id number] Director Custom: Mohamud Lucas MD US OB Growthon 11-29-2021 [...] by Param Garnett on 11/30/2021 0718 Normal [facility] GBS, External Resulton 11-10 GBS, External Result Positive [facility] [email or web address] Phone: [facility] [email or web address] Phone: Q - STREPTOCOCCUS,GROUP B CU LTUREon 11-10-2021 STREPTOCOCCUS, GROUP B CULTURE SEE NOTE Abnormal [facility] Comment on above: Order Comment: [facility] Testing performed at: [facility], [address] [place] [address], [address] [place] [address], [id number], Tuyere Fitter: David Whalen MD [facility] Collection Date/Time: [id number] [facility] Results Received Date/Time: [id number] [facility] Reported Date/Time: [id number] Result Comment: STRE PTOCOCCUS, GROUP B CULTURE Micro Number: [id number] Test Status: Final Specimen Source: Vaginal/anorectal Specimen [...] 5 827W #### [facility] [address] [place] [address] US OB Growthon 10-03-2021 US OB Growth [...] Anterior fundal Grade I Weight (g) by Plridsyypw50.5 % * These measurements result in an [...] by Param Garnett on 10/04/2021 0920 Normal [facility] No Panel Informationon 09-22 ABO, External Result Negative [employer] Work Phone: Rh Factor, External Result Negative [employer] Work Phone: [employer] Work Phone: Rhogam, External Resultson 0 09-21-2021 Rhogam, External Result given [employer] Work Phone: [employer] Work Phone: Complete Blood Counton 09-20 Erythrocyte distribution width (RBC) [Ratio] 12.5 % Normal 11.0-15.0 [facility] Comment on above: Performed By: #### G GLU, CBC #### [facility] [address] [place], [place] [id number] Hematocrit (Bld) [Volume fraction] 32.7 % Low 35.0-47.0 [facility] Comment on above: Performed By: #### G GLU, CBC #### [facility] [address] [place], [place] [id number] Hemoglobin (Bld) [Mass/Vol] 10.7 g/dL Low 11.6-15.5 [facility] Specialist Comment on above: Performed By: #### G GLU, CBC #### [facility] [address] [place], [place] [id number] MCH (RBC) [Entitic mass] 30.1 pg Normal 27.0-33.0 [facility] Comment on above: Performed By: #### G GLU, CBC #### [facility] [address] [place], [place] [id number] MCHC (RBC) [Mass/Vol] 32.7 g/dL Normal 32.0-36.0 [facility] Comment on above: Performed By: #### G GLU, CBC #### [facility] [address] [place], [place] [id number] MCV (RBC) [Entitic vol] 92 fL Normal 80-100 [facility] Comment on above: Performed By: #### G GLU, CBC #### [facility] [address] [place], [place] [id number] Platelet mean volume (Bld) [Entitic vol] 10.80 fL Normal 7.50-12.50 [facility] Comment on above: Performed By: #### G GLU, CBC #### [facility] [address] [place], [place] [id number] Platelets (Bld) [#/Vol] 240 10*3/uL Normal 140-400 [facility] Comment on above: Performed By: #### G GLU, CBC #### [facility] [address] [place], [place] [id number] RBC (Bld) [#/Vol] 3.56 10*6/uL Low 3.90-5.20 [facility] Press Manager Comment on above: Performed By: #### G GLU, CBC #### [facility] [address] [place], [place] [id number] RDW-SD 42.5 fL Normal 37.0-50.0 [facility] Comment on above: Performed By: #### G GLU, CBC #### [facility] [address] [place], [place] [id number] WBC (Bld) [#/Vol] 9.5 10*3/uL Normal 3.8-11.0 [facility] [place] [facility] Comment on above: Performed By: #### G GLU, CBC #### [facility] [address] [place], [place] [id number] Glucose - Gestational Screen on 09-20-2021 Glucose [Mass/Vol] 128 mg/dL Normal <135 [facility] Press Manager Comment on above: Result Comment: A va lue of 135 mg/dL or greater indicates the need for a full glucose tolerance test performed in the fasting state to determine if the patient has gestational diabetes. Performed By: #### G GLU, CBC #### [facility] [address] [place], [place] [id number] US OB Growthon 08-29-2021 OB Growth FINDINGS: [...] by Param Garnett on 09/02/2021 0850 Normal [facility] Press Manager US OB 2nd/3rd Trimesteron OB 2nd/3rd Trimester [...] 4.7 cm (20 weeks, 2 days) Head Nczrrvgffwspj10.5 cm (20 weeks, 0 days) Abdominal Lroyaetgndsey04.2 cm (20 weeks, 3 days) Femur Length [...] by Param Garnett on 09/20/2021 0947 Normal [facility] Press Manager C. Trachomatis, External Res [facility] 05-04-2021 C. Trachomatis, External Result Not detected [facility] [email or web address] Phone: HIV, External Resulton 05-04 HIV, External Result Non-Reactive [employer] Phone: Hepatitis B, External Result on 05-04-2021 Hep B, External Result Non-Reactive [employer] Phone: N. Gonorrhoeae, External Res ulton 05-04-2021 N. Gonorrhoeae, External Result Not detected [employer] Phone: No Panel Informationon 05-04 [employer] Phone: [employer] Phone: RPR, External Labon 05-04-20 RPR, External Result Non-Reactive [employer] Phone: Rubella Titer, External Resu lton 05-04-2021 Rubella Titer, External Result immune [employer] Phone: Cytologyon 06-05-2017 Cytology (NOTE)[id number] Y LABORATORIESCONSULTING PATHOLOGISTS [facility] [id number] [place] [address]. [place], [place] [address] Fax: GYNECOLOGIC CYTOLOGY REPORTPatient Name: PARMINDER MASSEY#: [id number] #[id number]:1: Cervical material, (ThinPrep vial, Imaging-assisted review)Clinical HistoryNo LMP date givenContraceptive useR87.615 Unsatisfactory pap of cervixHigh Risk HPV DNA testing is requested if the diagnosis is ASC-USINTERPRETATIONCervi mariama material, (ThinPrep vial, Imaging-assisted review):Specimen Adequacy: Satisfactory for evaluation. - Endocervical/transformati on zone component present.Descriptive Diagnosis: Negative for intraepithelial lesion or malignancy.Shift in aniceto suggestive of bacterial vaginosis.Cytotechnologis t: HIC. Deca, CT(ASCP)Electronically Signed Outcd/06/14/2017 Normal [facility] DHEA Sulfateon 04-09-2017 DHEA Sulfate 107.0 ug/dL Normal 65-380 [facility] Comment on above: Result Comment: [facility] [employer] [address] [place] [address] Performed By: #### C YTCGP ####[address] [address] Cortisolon 04-06-2017 Cortisol 10.0 ug/dL Normal [facility] Comment on above: Result Comment: Georges isol Reference Range: AM 6.0-18.4 PM 2.7-10.[address] [address] Performed By: #### G ADILENE, CORTI, INSU, TSHX, PROL, FTST, DHES ####[address] [address] Glucoseon 04-06-2017 Glucose mass conc 83 mg/dL Normal 70-99 [facility] Comment on above: Result Comment: [facility] [employer] [address] [place] [address] Performed By: #### G ADILENE, CORTI, INSU, TSHX, PROL, FTST, DHES ####[address] [address] Insulinon 04-06-2017 Insulin 11.1 mU/L Normal [facility] Comment on above: Performed By: #### G ADILENE, CORTI, INSU, TSHX, PROL, FTST, DHES ####[address] [address] Reference Range Normal [facility] Comment on above: Result Comment: Fast in.6-24.930 min: 20-87065 min: 29-8890 min: 26-19415 min: 22-[address] [address] Performed By: #### G ADILENE, CORTI, INSU, TSHX, PROL, FTST, DHES ####[address] [address] Collection Info. NOT REPORTED Normal [facility] Comment on above: Performed By: #### G ADILENE, CORTI, INSU, TSHX, PROL, FTST, DHES ####[address] [address] Prolactinon 04-06-2017 Prolactin 35.67 ug/L High 4.79-23.30 [facility] Comment on above: Result Comment: The presence of macroprolactin may cause interference in female patients with various endocrinological diseases or during .[address] [address] Performed By: #### G ADILENE, CORTI, INSU, TSHX, PROL, FTST, DHES ####[place] [address] TSH w/reflex to FT4on 2016 Thyroid stimulating hormone (TSH) 1.54 m[IU]/L Normal 0.30-5.00 [facility] Comment on above: Result Comment: [address] [address] Performed By: #### G ADILENE, CORTI, INSU, TSHX, PROL, FTST, DHES ####[place] [address] Testosterone, Freeon 017 Sex Horm Bind Glob 133 nmol/L Normal 30-135 [facility] Comment on above: Performed By: #### G ADILENE, CORTI, INSU, TSHX, PROL, FTST, DHES ####[address] [address] Testosterone 27 ng/dL Normal 20-70 [facility] Comment on above: Performed By: #### G ADILENE, CORTI, INSU, TSHX, PROL, FTST, DHES ####[id number] [place] [address] Testosterone,Free 1.7 pg/mL Normal 0.8-7.4 [facility] Comment on above: Result Comment: The concentration of free testosterone is derived from a mathematical expression based on the constant for the binding of testosterone to albumin and/or sex hormone binding globulin.[address] [address] Performed By: #### G ADILENE, CORTI, INSU, TSHX, PROL, FTST, DHES ####[id number] [place], [place] [id number] US PELVIS COMPLETEon 017 US PELVIS COMPLETE [...] by:MATT Batresigned by:Ethan Armstrong MD04/06/17Final result Normal [facility] Chlamydia/GC DNA, TPon 03-29 Chlamydia Probe, TP Negative Normal NEG [facility] Comment on above: Result Comment: CHLA MYDIA TRACHOMATIS DNA not detected by nucleic acid amplification. Performed By: #### C YTCGP ####[address] [address] Gonorrhea Probe, TP Negative Normal NEG [facility] Comment on above: Result Comment: NEIS SERIA GONORRHOEAE DNA not detected by nucleic acid amplification.[address] [address] Performed By: #### C YTC ####[address] [address] Cytologyon 03-28-2017 Cytology (NOTE)[id number] LABORATORIESCONSULTING PATHOLOGISTS CORPORATIONANATOMIC [id number] [place] [phone] Fax: GYNECOLOGIC CYTOLOGY REPORTPatient Name: PARMINDER MASSEY#: [id number] #[id number]: Cervical material, (ThinPrep vial, Imaging-assisted review)Clinical HistoryNo LMP date eccdrX74.4 Encounter for screening for malignant neoplasm of [...] t: SZMARYSE. ALFREDA Larry(ASCP)Electronically Signed Outmk/04/04/2017 Normal [facility] Vaginitis DNA Probeon 2016 Vaginitis DNA Probe [...] of vaginitis/vaginosis. Report Status FINAL 03/28/2017 Normal [facility] Comment on above: Performed By: #### V AGDNA ####[address] [place] [id number] Vital Signs Date Time Vital Sign Value Performing Clinician Facility 07-23-2024 10:07-0500 Body mass index (BMI) [Ratio] 27.29 kg/m2 Maulik Floro CNM Work Phone: [facility] 07-23-2024 10:07-0500 Body weight 74.39 kg Maulik Floro CNM Work Phone: [facility] 07-23-2024 10:07-0500 Diastolic blood pressure 80 mm[Hg] Maulik Floro CNM Work Phone: [facility] 07-23-2024 10:07-0500 Systolic blood pressure 120 mm[Hg] Maulik Floro CNM Work Phone: [facility] 06-25-2024 10:32-0500 Body mass index (BMI) [Ratio] 25.79 kg/m2 Maulik Floro CNM Work Phone: [facility] 06-25-2024 10:32-0500 Body weight 70.31 kg Maulik Floro CNM Work Phone: [facility] 06-25-2024 10:32-0500 Diastolic blood pressure 80 mm[Hg] Maulik Floro CNM Work Phone: [facility] 06-25-2024 10:32-0500 Systolic blood pressure 120 mm[Hg] Maulik Floro CNM Work Phone: [facility] 05-21-2024 09:23-0500 Body mass index (BMI) [Ratio] 24.13 kg/m2 Maulik Floro CNM Work Phone: [facility] 05-21-2024 09:23-0500 Body weight 65.77 kg Maulik Floro CNM Work Phone: [facility] 05-21-2024 09:23-0500 Diastolic blood pressure 80 mm[Hg] Maulik Floro CNM Work Phone: [facility] 05-21-2024 09:23-0500 Systolic blood pressure 120 mm[Hg] Maulik Floro CNM Work Phone: [facility] 04-23-2024 09:26-0400 Body mass index (BMI) [Ratio] 22.63 kg/m2 Maulik Floro CNM Work Phone: [facility] 04-23-2024 09:26-0400 Body weight 61.69 kg Maulik Floro CNM Work Phone: [facility] 04-23-2024 09:26-0400 Diastolic blood pressure 70 mm[Hg] Maulik Floro CNM Work Phone: [facility] 04-23-2024 09:26-0400 Systolic blood pressure 112 mm[Hg] Maulik Floro CNM Work Phone: [facility] 03-19-2024 09:31-0400 Body mass index (BMI) [Ratio] 21.8 kg/m2 Maulik Floro CNM Work Phone: [facility] 03-19-2024 09:31-0400 Body weight 59.42 kg Maulik Floro CNM Work Phone: [facility] 03-19-2024 09:31-0400 Diastolic blood pressure 72 mm[Hg] Maulik Floro CNM Work Phone: [facility] 03-19-2024 09:31-0400 Systolic blood pressure 112 mm[Hg] Maulik Floro CNM Work Phone: [facility] 12-10-2021 07:07-0400 Body temperature 98.1 [degF] Rodo Simmons APRN - CNM Work Phone: [facility] 12-10-2021 07:07-0400 Diastolic blood pressure 65 mm[Hg] Rodo Simmons APRN - CNM Work Phone: [facility] 12-10-2021 07:07-0400 Heart rate 81 /min Rodo Mason CNM Work Phone: [facility] [employer] 12-10-2021 07:07-0400 Respiratory rate 18 /min Rodo Mason CNM Work Phone: [facility] [employer] 12-10-2021 07:07-0400 Systolic blood pressure 114 mm[Hg] Rodo Mason CNM Work Phone: [facility] [employer] 12-08-2021 00:34-0400 SaO2% (BldA) [Mass fraction] 94 % Rodo Mason CNM Work Phone: [facility] [employer] 12-07-2021 05:40-0400 Body height 165.1 cm Rodo Mason CNM Work Phone: [facility] [employer] 12-07-2021 05:40-0400 Body mass index (BMI) [Ratio] 30.12 kg/m2 Rodo Mason CNM Work Phone: [facility] [employer] 12-07-2021 05:40-0400 Body weight 82.1 kg Rodo Masno CNM Work Phone: [facility] [employer] Encounters Encounter Date Encounter Type Care Provider [...] Evaluation and management of inpatient RODO SHAW [facility] Start: 12-07-2021 End: 12-10-2021 Evaluation and management of inpatient Rodo Simmons JOURNEYMAN GLAZIER - CNM Work Phone: [facility] Labor and Delivery Comment on above: Third trimester preg corey Start: 06-24-2021 End: 06-24-2021 ambulatory ARINA LEIGHO Facility: Start: 06-06-2017 End: 06-06-[address] [facility] Start: 04-06-2017 End: 04-07-[address] [facility] Start: 03-28-2017 End: 03-29-2017 [facility] Procedures Date Procedure Procedure Detail Performing Clinician Start: 07-27-2024 ALL CBC WITH AUTO DIFF Narayan Juan DO Work Phone: Start: 12-08-2021 Blood count complete automated Maulik Leigho [employer] GLA[employer] - CNM Work Phone: Start: 12-08-2021 RHO(D) IMMUNE GLOBUL IN, Maulik Olgao [employer] - CNM Work Phone: Start: 12-07-2021 SURGICAL PATHOLOGY REPORT Matt Light MD Work Phone: Start: 12-07-2021 Blood count complete auto&auto difrntl wbc Rodo Shaw [employer] G[employer] - CNM Work Phone: Start: 12-07-2021 biophysical pr ofile w/o non-stress testing Rodo Simmons JOURNEY[employer] GLAZIER - CNM Work Phone: Start: 12-07-2021 Drug tst prsmv instr mnt chem analyzers pr date Rodo Monaeemir [facility] Work Phone: Start: 12-07-2021 Urinalysis microscop ic only Rodo Simmons [facility] Work Phone: Start: 12-07-2021 Urnls dip stick/tabl et rgnt auto w/o microscopy Rodo Simmons [facility] Work Phone: Start: 11-10-2021 GBS, EXTERNAL RESULT Wy storical Provider Start: 09-22-2021 ABO, EXTERNAL RESULT Hi storical Provider MD Start: 09-22-2021 RH FACTOR, EXTERNAL RESULT Historical Provider MD Start: 09-21-2021 RHOGAM, EXTERNAL RESULT Historical Provider MD Start: 05-04-2021 C. TRACHOMATIS, EXTE RNAL RESULT Historical Provider MD Start: 05-04-2021 HEPATITIS B, EXTERNA L RESULT Historical Provider MD Start: 05-04-2021 HIV, EXTERNAL RESULT Wy storical Provider Start: 05-04-2021 N. GONORRHOEAE, EXTE RNAL RESULT Historical Provider MD Start: 05-04-2021 RPR, EXTERNAL RESULT Wy storical Provider Start: 05-04-2021 RUBELLA TITER, EXTER NAL RESULT Historical Provider MD Start: 06-05-2017 Microscopic observat ion [Identifier] in Cervix by Cyto stain Rodo Simmons [facility] Work Phone: Start: 04-06-2017 CORTISOL TOTAL [...] AM EST Routine [facility] [address] [place] [id number] Maulik Del Toro, CNM [address] [place] [address] [facility] Start: 07-23-2024 End: 07-23-2024 Patient encounter procedure 07/23/2024 10:00 AM EST Routine [facility] [address] [place] [id number] Maulik Del Toro, CNM [address] [place] [address] [facility] Start: 06-24-2024 End: 06-24-2024 Patient encounter procedure [facility] Comment on above: Arrived Start: 05-21-2024 End: 05-21-2024 Patient encounter procedure [facility] Comment on above: Arrived Start: 04-23-2024 End: 04-23-2024 Professional / ancillary services management 04/23/2024 10:00 AM EDT Ancillary Procedure [facility] [address] [address] [facility] Start: 04-23-2024 End: 04-23-2024 Patient encounter procedure [facility] Comment on above: Arrived Start: 03-19-2024 End: 03-19-2025 US for US OB 14+ weeks anatomy scan Imaging Routine related condition in second trimester Expected: 03/19/2024, Expires: 03/19/2025 [facility] Work Phone: Comment on above: Expected: 03/19/2024 , Expires: 03/19/2025 Start: 03-16-2024 Influenza vaccination Influenza Vacc ine (#1) [facility] Start: 03-04-2024 Screening for malign ant neoplasm of cervix [facility] Start: 03-16-2022 Influenza vaccination Flu vacc ine (Season Ended) [facility] Start: 2020 Screening for malign ant neoplasm of cervix [facility] Start: 06-05-2020 Screening for malign ant neoplasm of cervix Pap smear [facility] Start: 2009 DTaP/Tdap/Td vaccine (1 - Tdap) DTaP/Tdap/Td vaccine (1 - Tdap) [facility] Start: 2008 Hepatitis C screening Hepatitis C sc reen [facility] Start: 2005 HIV screening [facility] Start: 2002 Depression Screen Depression Screen [facility] Start: 1995 COVID-19 Vaccine (1) COVID-19 Vaccin e (1) [facility] Start: 1991 Varicella vaccine (1 of 2 - 2-dose childhood series) Varicella vaccine (1 of 2 - 2-dose childhood series) [facility] Nonrebreather mask oxygen Nonrebreather mask oxygen Respiratory Care Routine As directed - RT (PRN) until discontinued starting 12/07/2021 [employer] [facility]: Comment on above: As directed - RT (PA N) until discontinued starting 12/07/2021 Oxygen therapy [[employer] Data Set] Initiate Oxygen Therapy Protocol Respiratory Care Routine As Needed until discontinued starting 12/07/2021 [employer] Phone: Comment on above: As Needed until disc ontinued starting 12/07/2021 RHOGAM RHOGAM POSTPAR MARCELINO Blood Bank [employer] Label Print 12/08/2021 7:15 AM EDT [employer] Phone: Spirometry panel Incentive drea metry Respiratory Care Routine Every 2hr while awake until discontinued starting 12/08/2021 [employer] Phone: Comment on above: Every 2hr while awak e until discontinued starting 12/08/2021 Immunizations Immunization Date Immunization Notes Care Provider Fa cili 12-07-2021 diphtheria, tetanus toxoids and acellular pertussis vaccine, unspecified formulation Rodo Simmons [employer] Work Phone: [employer] Phone: 12-07-2021 measles, mumps and rubella virus vaccine Rodo Simmons [employer] Work Phone: [employer] Phone: Payers Date Payer Category Payer Private Health Insurance [employer] [id number] 2022 Unknown [employer] [id number] 2022-Present [address] [place] [address] [id number] 2022 Unknown [id number] 2016 Unknown [id number] 1990 Unknown [id number] 2.16.840.1.890149.3.579.2. 593 1990 Unknown [id number] 2.16.840.1.658502.3.579.2. 173 1990 Unknown [id number] 2.16.840.1.090528.3.579.2. 9 1990 Unknown [id number] 2.16.840.1.994640.3.579.2. 9 1990 Unknown [id number] 2.16.840.1.494538.3.579.2. 9 1990 Unknown [id number] 2.16.840.1.138683.3.579.2. 9 1990 Unknown [id number] 2.16.840.1.629014.3.579.2. 1258 1990 Unknown [id number] 2.16.840.1.037860.3.579.2. 1258 1990 Unknown [id number] 2.16.840.1.848323.3.579.2. 1258 1990 Unknown [id number] 2.16.840.1.061677.3.579.2. 9 1990 Unknown [id number] 2.16.840.1.433547.3.579.2. 1258 1990 Unknown [id number] 2.16.840.1.736451.3.579.2. 1258 1990 Unknown [id number] 2.16.840.1.129038.3.579.2. 1258 1959 Unknown [id number] Social History Date Type Detail Facility Start: 03-28-2017 End: 06-20-2023 Tobacco smoking status CTIS Ex-smoker BON [email or web address] Phone: History of tobacco use Cigarette Smoker B ON [email or web address] Phone: Start: 03-28-2017 End: 01-29-2024 Cigarettes smoked current (pack per day) - Reported 1 [employer] Phone: Start: 03-28-2017 End: 06-20-2023 Tobacco use and exposure Smokeless tobacco non-user [employer] Phone: Start: 12-07-2021 Alcohol intake Ex-drinker (finding) [employer] Phone: Start: 1990 Sex Assigned At Not on file B ON [email or web address] Phone: Start: 11-27-2021 End: 12-07-2021 Exposure to SARS-CoV-2 (event) Not sure [employer] Phone: History of tobacco use Current smoker [...] a routine visit. documented in this encounter [facility] 06-25-2024 History of Present [...] a routine visit. documented in this encounter [facility] 06-17-2024 Telephone encounter Note Licha arciniega needs lab result that has her blood type on it and Demo sheet faxed to [phone] [facility] 06-17-2024 Miscellaneous Notes [facility] needs lab result that has her blood type on it and Demo sheet faxed to [phone] documented in this encounter [facility] 05-21-2024 History of Present [...] a routine visit. documented in this encounter [facility] 04-23-2024 History of Present [...] a routine visit. documented in this encounter [facility] 03-19-2024 History of Present [...] a routine visit. documented in this encounter [facility] 12-10-2021 Hospital Discharge instructions Lorin Arias RN - 12/10/2021 Follow-up with your OB doctor as specified. [facility] OB Department phone: Chikis Del Toro, MSN, [employer], CNM [place] [address] DIET Eat a well balanced diet focusing on foods high in fiber and protein. Drink plenty of fluids especially water. To avoid constipation you may take a mild stool softener as recommended by your doctor or sales representative gas service. ACTIVITY Gradually increase your activity. Resume exercise regimen only after advice by your doctor or sales representative [employer] service. Avoid lifting anything heavier than a gallon of milk for SIX weeks. Avoid driving until your doctor or sales representative gas service has given their approval. Rise slowly from [...] medications as recommended by your doctor or sales representative [employer] service for pain If you develop a warm, [...] vitamins as directed by your doctor or sales representative [employer] service. Refer to the booklet in the folder/binder for more information. If you feel you need more assistance or have questions, please call Vibha Crump IBCLC, oracle bpm consultant, at or the OB department to [...] your calf. documented in this encounter [facility] [employer] Phone: 12-10-2021 History of Present illness [...] non pitting edema, no redness or heat, iat's sign negative b/l. In agreement with discharge [...] urine sample. documented in this encounter [email or web address] [email or web address] Phone: Evaluation note Diagnosis Uterine contractions- Primary Third trimester Term intolerance to labor, delivered, current hospitalization Abnormality in heart rate/rhythm, delivered, with or without mention of antepartum condition delivery delivered delivery, without mention of indication, delivered, with or without mention of antepartum condition documented in this encounter [employer] Phone: evaluation note* Diagnosis Encounter for supervision [...] FoundDocuments on File Type Date Recorded Patient Custodial Manager Expl anation ACP-Advance Directive ACP-Power of Teacher Of The Visually Impaired Latest Code Status on File Code Status Date Activated Date Inactivated Comments Full Code 12/07/2021 11:34 PM Full Code 12/07/2021 5:30 AM 12/07/2021 11:33 PM Additional Source Comments INFORMATION SOURCE (unrecogn ized section and content) DATE CREATED AUTHOR 01/08/2018 [facility] DATE CREATED AUTHOR AUTHOR'S ORGANIZ ATION 12/02/2021 [facility] dical Specialist DATE CREATED AUTHOR AUTHOR'S ORGANIZ ATION 12/08/2021 [facility] DATE CREATED AUTHOR AUTHOR'S ORGANIZ ATION 01/15/2022 [facility] DATE CREATED AUTHOR AUTHOR'S ORGANIZ ATION 07/28/2024 [facility] dical Specialists EPIC Reason for Visit (unrecogniz ed section and content) Reason Comments Contractions Specialty Diagnoses / Procedures Referred By Contac t Referred To Contact Diagnoses Uterine contractions Term intolerance to labor, delivered, current hospitalization Rodo Shaw, [employer] - CNM [address] [place] [address] [facility] [id number] [place] [address] Referral ID Status Reason Start Date Expiration Date Visits Re quested Visits Authorized [id number] 1 1 Ordered Prescriptions (unrec ognized section [...] RN) 2099 (Due - Provider: Kaushik Lindsey [facility]) 2099 (Due - Provider: Kaushik Lindsey [facility]) sodium chloride flush 0.9 % injection 5-40 [...] (Due) 899 (Due)2099 (Due) 899 (Due)2099 (Due) kqfoyrb-osfojh-zcsty pertussis (BOOSTRIX) injection 0.5 mL 0.5 mL, [...] BE BASED ON THE PRIMARY CLINICAL RECORDS. [employer] provides no warranty or guarantee of the accuracy or completeness of information in this document.
[2024-08-06 09:24] VITALS: BP 120/71; PULSE 97
== END 2024-08-06 09:50 | disposition home or self-care (01) ==
LOC: FBCO 00:16 → FBC 09:02
PROVIDERS: PCP Midwife; Visit Provider Obstetrics & Gynecology
DX: O26.893 Other specified pregnancy related conditions, third trimester (principal); Z3A.34 34 weeks gestation of pregnancy
CPT/HCPCS: 76818

== ENCOUNTER 2024-08-09 03:09 | Outpatient (OUT) | payer OTHER, SELFPAY ==
--- OUTSIDE RECORDS SUMMARY | 2024-08-09 03:13 | XMS_ITS | CCD ---
Author Organization [facility] Care Team Providers Care Tariff Clerk Name Role Phone SONU GONZALEZ Unavailable Unavailable GONZALEZ SONU K Unavailable Unavailable GONZALEZ SONU K Unavailable Unavailable GONZALEZ, SONU K Unavailable Unavailable FLORO, ARINA Primary Care Unavailable MISC, DOCTOR Attending Unavailable MISC, DOCTOR Consulting Unavailable MISC, DOCTOR Admitting Unavailable Unavailable Primary Care Provider Unavailabl e HOTELLINGRODO Admitting Unavailable HEDGESMATT Attending Unavailable Unavailable Primary Care Provider Unavailabl e FLORO, MAULIK L Attending Unavailable FLORO, MAULIK [...] Propensity to adverse reactions to substance 12-07-2021 [facility] Medications Current Medications Medication Drug Class(es) [...] Active docusate sodium 50 mg / sennosides, alf 8.6 mg oral tablet (1 source) Start: 12-07-2021 sennosides-docusate sodium (SENOKOT-S) 8.6-50 MG tablet 1 tablet 0.4 ml enoxaparin sodium 100 mg/ml prefilled syringe (1 source) Low Molecular Weight Heparin Start: 12-08-2021 enoxaparin (LOVENOX) injection 40 mg famotidine 20 mg oral tablet (20 sources) Histamine-2 Receptor Antagonist Start: 07-21-2024 End: [...] w/FA-DHA ( Gummies) 0.18-25 MG chewable tablet (20 sources) MV & Mi n w/FA-DHA ( [...] 05-21-2024 Chronic Other and delivery including normal (16 sources) Third trimester ; Translations: [Encounter for [...] WITH AUTO DIFFon BASOPHILS ABSOLUTE AUTO 0 [facility] Basophils/100 WBC (Bld) 0.2 % 0.2 - 2.0 % [facility] Eosinophils/100 WBC (Bld) 0.2 % Low 0.9 - 7.0 % [facility] Erythrocyte distribution width (RBC) [Ratio] 12.6 % 11.0 - 15.0 % [facility] Hematocrit (Bld) [Volume fraction] 33.1 % Low 36.0 - 48.0 % [facility] Hemoglobin (Bld) [Mass/Vol] 11.1 g/dL Low 12.0 - 16.0 g/dL [facility] IMMATURE GRANULOCYTES ABS AUTO 0.16 High [facility] Immature granulocytes/100 WBC (Bld) 1.1 % High 0.0 - 0.5 % [facility] Interpretation and review of laboratory results Abnormal [facility] LYMPHOCYTES ABSOLUTE AUTO 1.5 [facility] Lymphocytes/100 WBC (Bld) 10.3 % Low 20.5 - 60.0 % [facility] MCH (RBC) [Entitic mass] 30.6 pg 26.7 - 34.0 pg [facility] MCHC (RBC) [Mass/Vol] 33.5 g/dL 29.9 - 35.2 g/dL [facility] MCV (RBC) [Entitic vol] 91.2 fL 81.0 - 99.0 fL [facility] MONOCYTES ABSOLUTE AUTO 0.9 High [facility] Monocytes/100 WBC (Bld) 6.3 % 1.7 - 12.0 % [facility] NEUTROPHILS ABSOLUTE AUTO 11.8 High [facility] Neutrophils/100 WBC (Bld) 81.9 % High 43.0 - 75.0 % [facility] Platelet mean volume (Bld) [Entitic vol] 10.2 fL 9.5 - 13.5 fL [facility] TBH EO # 0 [facility] TBH PLT 224 [facility] RBC 3.63 Low [facility] TB WBC 14.4 High [facility] US for pregnancyon TITLE OF EXAM: OB [...] report is generated using voice recognition reporting (Plextron[employer]). On occasion PowerScribe erroneously drops words from the report or replaces the spoken word with similar sounding words. Please call with any questions/concerns regarding this report.* Dictated and transcribed 06/05/24dpd This report has been electronically signed and approved by the interpreting radiologist. Yordan Phillips MD - 06/06/2024 TITLE OF EXAM: OB [...] report is generated using voice recognition reporting ([employer] Cell [employer]). On occasion PowerScribe erroneously drops words from the report or replaces the spoken word with similar sounding words. Please call with any questions/concerns regarding this report.* Dictated and transcribed 06/05/24dpd This report has been electronically signed and approved by the interpreting radiologist. [facility] for pregnancyOrdered By: Yordan Duran on 06-06-2024 [facility] Work Phone: US OB LIMITED 1+ [...] report is generated using voice recognition reporting (Plextronics). On occasion [employer] erroneously drops words from the report or replaces the spoken word with similar sounding words. Please call with any questions/concerns regarding this report.* Dictated and transcribed 06/05/24/dpd This report has been electronically signed and approved by the interpreting radiologist. Normal Not Available US for pregnancyon Radiology Study observation (narrative) [facility] OB 14+ WEEKS ANATOMY SCAN on [...] 2.8 cm. Yolk sac diameter 0.3 cm. [place] rump length is 1.5 cm. heart rate [...] SURGICAL PATHOLOGY CONSULTATION Patient Name: ALTON DAVIS [facility] Rec: [id number] Path Number: [id number] [facility] ANATOMIC PATHOLOGY [address] [place] [id number] [facility] BIOPHYSICAL PROFILE WO NON STRESS TESTINGon [...] Ajit Warner MD 12/09/21 Final result Normal [facility] Biophysical profile score 8/8. KUNAL 7.1. The findings were sent to the Radiology Results Communication Center at 10:15 am on 12/07/2021 to be communicated to a licensed caregiver. [facility] EXAMINATION: BIOPHYSICAL PROFILE WITHOUT NON-STRESS [...] fluid index 7.1 with MVP 2.[address] [facility] Ajit Warner MD - 12/09/2021 [...] to be communicated to a licensed caregiver. [employer] Phone: BIOPHYSICAL PROFILE WO NON STRESS TESTINGOrdered By: Ajit Warner on 12-09-2021 [facility] Phone: CBCon 12-08-2021 Erythrocyte distribution width (RBC) [Ratio] 14.3 % Normal 11.8-14.4 [facility] Comment on above: Performed By: #### C BC #### [facility] [address] [place] [address] [place] [address] Screening Technician: Mohamud Lucas MD Hematocrit (Bld) [Volume fraction] 26.3 % Low 36.3-47.1 [facility] Comment on above: Performed By: #### C BC #### [facility] [address] [place] [address] [place] [address] Screening Technician: Mohamud Lucas MD Hemoglobin (Bld) [Mass/Vol] 8.5 g/dL Low 11.9-15.1 [facility] Comment on above: Performed By: #### C BC #### [address] [place] [address] Screening Technician: Mohamud Lucas MD MCH (RBC) [Entitic mass] 27.0 pg Normal 25.2-33.5 [facility] Comment on above: Performed By: #### C BC #### [facility] [address] [place], [place] [id number] Screening Technician: Mohamud Lucas MD MCHC (RBC) [Mass/Vol] 32.3 g/dL Normal 28.4-34.8 [facility] Comment on above: Performed By: #### C BC #### [facility] [address] [place], [place] [id number] Screening Technician: Mohamud Lucas MD MCV (RBC) [Entitic vol] 83.5 fL Normal 82.6-102.9 [facility] Comment on above: Performed By: #### C BC #### [address] [place], [place] [id number] Screening Technician: Mohamud Lucas MD NRBC Automated 0.0 per 100 WBC Normal 0.0 [facility] Comment on above: Performed By: #### C BC #### [address] [place], [place] [id number] Screening Technician: Mohamud Lucas MD Platelet mean volume (Bld) [Entitic vol] 11.1 fL Normal 8.1-13.5 [facility] Comment on above: Performed By: #### C BC #### [address] [place], [facility] Screening Technician: Mohamud Lucas MD Platelets (Bld) [#/Vol] 219 10*3/uL Normal 138-453 [facility] Comment on above: Performed By: #### C BC #### [address] [place] [address] Screening Technician: Mohamud Lucas MD RBC (Bld) [#/Vol] 3.15 10*6/uL Low 3.95-5.11 [facility] Comment on above: Performed By: #### C BC #### [facility] [address] [place] [address] Screening Technician: Mohamud Lucas MD WBC (Bld) [#/Vol] 20.6 10*3/uL High 3.5-11.3 [facility] Comment on above: Performed By: #### C #### [facility] [address] [place] [address] Screening Technician: Mohamud Lucas MD Hematocrit (Bld) [Volume fraction] 26.3 % Low 36.3 - 47.1 % [facility] Hemoglobin.gastroin testinal spec 1 Ql (Stl) 8.5 g/dL Low 11.9 - 15.1 g/dL [facility] Interpretation and review of laboratory results Abnormal [facility] MCH (RBC) [Entitic mass] 27.0 pg 25.2 - 33.5 pg [facility] MCHC (RBC) [Mass/Vol] 32.3 g/dL 28.4 - 34.8 g/dL [facility] MCV (RBC) [Entitic vol] 83.5 fL 82.6 - 102.9 fL [facility] NRBC Automated 0.0 0.0 per 100 WBC [facility] Platelet distribution width (Bld) [Ratio] 14.3 % 11.8 - 14.4 % [facility] Platelet mean volume (Bld) [Entitic vol] 11.1 fL 8.1 - 13.5 fL [facility] Platelets (Bld) [#/Vol] 219 10*3/uL [facility] RBC (Bld) [#/Vol] 3.15 10*6/uL Low 3.95 - 5.1 1 m/uL [facility] WBC (Bld) [#/Vol] 20.6 10*3/uL High [facility] RhIg Workup (RhoGam)on 12-08 RhIg Workup (RhoGam) Blood Component Type MANUFACTURED PRODUCT Units Ordered 1 ABO/Rh(D) A NEGATIVE Antibody Screen NEGATIVE History Check NO PREVIOUS HISTORY Rhig Eligibility Patient Is A Candidate For Injection Eugenie NEGATIVE Du Antigen NOT TESTED Unit Number [id number] Blood Component Type RHIG Unit Division 00 Status of Unit REL FROM ALLOC Transfusion Status OK TO TRANSFUSE Normal [facility] Comment on above: Performed By: #### R HIGW #### [facility] [address] [place], [place] [phone] Screening Technician: Mohamud Lucas MD CBC auto differentialon 11-14 Absolute Eos # 0.08 [facility] Absolute Immature Granulocyte 0.08 [facility] Absolute Lymph # 1.81 [facility] Absolute [place] # 0.88 [facility] Basophils (Bld) [#/Vol] 0.04 10*3/uL [facility] Basophils/100 WBC (Bld) 0 % 0 - 2 % [facility] Eosinophils/100 WBC (Bld) 1 % 1 - 4 % [facility] Hematocrit (Bld) [Volume fraction] 32.8 % Low 36.3 - 47.1 % [facility] Hemoglobin.gastroin testinal spec 1 Ql (Stl) 10.3 g/dL Low 11.9 - 15.1 g/dL [facility] Immature granulocytes/100 WBC (Bld) 1 % High 0 [facility] Interpretation and review of laboratory results Abnormal [facility] Lymphocytes/100 WBC (Bld) 15 % Low 24 - 43 % [facility] MCH (RBC) [Entitic mass] 26.5 pg 25.2 - 33.5 pg [facility] MCHC (RBC) [Mass/Vol] 31.4 g/dL 28.4 - 34.8 g/dL [facility] MCV (RBC) [Entitic vol] 84.5 fL 82.6 - 102.9 fL [facility] Monocytes/100 WBC (Bld) 7 % 3 - 12 % [facility] NRBC Automated 0.0 0.0 per 100 WBC [facility] Platelet distribution width (Bld) [Ratio] 14.2 % 11.8 - 14.4 % [facility] Platelet mean volume (Bld) [Entitic vol] 11.9 fL 8.1 - 13.5 fL [facility] Platelets (Bld) [#/Vol] 259 10*3/uL [facility] RBC (Bld) [#/Vol] 3.88 10*6/uL Low 3.95 - 5.1 1 m/uL [facility] Segmented neutrophils/100 WBC (Bld) 76 % High 36 - 65 % [facility] Segs Absolute 9.01 High [facility] WBC (Bld) [#/Vol] 11.9 10*3/uL High [facility] CBC with Diffon 12-07-2021 Abs. Basophil 0.04 k/uL Normal 0.00-0.20 [facility] Comment on above: Performed By: #### C DP #### [facility] [address] [place] [address] [place] [id number] Screening Technician: Mohamud Lucas MD Abs.Imm.Granulocyte 0.08 k/uL Normal 0.00-0.30 [facility] Comment on above: Performed By: #### C DP #### [facility] [address] [place] [address] Screening Technician: Mohamud Lucas MD Abs.Neutrophil (Seg) 9.01 k/uL High 1.50-8.10 [facility] Comment on above: Performed By: #### C DP #### [facility] [address] [place], [place] [address] Screening Technician: Mohamud Lucas MD Basophils/100 WBC (Bld) 0 % Normal 0-2 [facility] Comment on above: Performed By: #### C DP #### [facility] [address] [place], [facility] Screening Technician: Mohamud Lucas MD Eosinophils (Bld) [#/Vol] 0.08 10*3/uL Normal 0.00-0.44 [facility] Comment on above: Performed By: #### C DP #### [facility] [address] [place], [place] [phone] Screening Technician: Mohamud Lucas MD Eosinophils/100 WBC (Bld) 1 % Normal 1-4 [facility] Comment on above: Performed By: #### C DP #### [facility] [address] [place] [address] Dr. [place], [facility] Screening Technician: Mohamud Lucas MD Erythrocyte distribution width (RBC) [Ratio] 14.2 % Normal 11.8-14.4 [facility] Comment on above: Performed By: #### C DP #### [address] [place] [id number] Screening Technician: Mohamud Lucas MD Hematocrit (Bld) [Volume fraction] 32.8 % Low 36.3-47.1 [facility] Comment on above: Performed By: #### C DP #### [facility] [address] [place] [address] Dr[place], [facility] Screening Technician: Mohamud Lucas MD Hemoglobin (Bld) [Mass/Vol] 10.3 g/dL Low 11.9-15.1 [facility] Comment on above: Performed By: #### C DP #### [address] [place], [facility] Screening Technician: Mohamud Lucas MD Immature granulocytes/100 WBC (Bld) 1 % High 0 [facility] Comment on above: Performed By: #### C DP #### [facility] [address] [place] [address] Dr[place], [facility] Screening Technician: Mohamud Lucas MD Lymphocytes (Bld) [#/Vol] 1.81 10*3/uL Normal 1.10-3.70 [facility] Comment on above: Performed By: #### C DP #### [address] [place], [facility] Screening Technician: Mohamud Lucas MD Lymphocytes/100 WBC (Bld) 15 % Low 24-43 [facility] Comment on above: Performed By: #### C DP #### [facility] [address] [place], [place] [id number] Screening Technician: Mohamud Lucas MD MCH (RBC) [Entitic mass] 26.5 pg Normal 25.2-33.5 [facility] Comment on above: Performed By: #### C DP #### [facility] [address] [place], [place] [phone] Screening Technician: Mohamud Lucas MD MCHC (RBC) [Mass/Vol] 31.4 g/dL Normal 28.4-34.8 [facility] Comment on above: Performed By: #### C DP #### [facility] [address] [place], [facility] Screening Technician: Mohamud Lucas MD MCV (RBC) [Entitic vol] 84.5 fL Normal 82.6-102.9 [facility] Comment on above: Performed By: #### C DP #### [facility] [address] [place], [place] [phone] Screening Technician: Mohamud Lucas MD Monocytes (Bld) [#/Vol] 0.88 10*3/uL Normal 0.10-1.20 [facility] Comment on above: Performed By: #### C DP #### [facility] [address] [place] [address] Screening Technician: Mohamud Lucas MD Monocytes/100 WBC (Bld) 7 % Normal 3-12 [facility] Comment on above: Performed By: #### C DP #### [facility] [address] [place], [place] [phone] Screening Technician: Mohamud Lucas MD Neutrophil (Seg) 76 % High 36-65 [facility] Comment on above: Performed By: #### C DP #### [facility] [address] [place], [place] [phone] Screening Technician: Mohamud Lucas MD NRBC Automated 0.0 per 100 WBC Normal 0.0 [facility] Comment on above: Performed By: #### C DP #### [facility] [address] [place], [place] [id number] Screening Technician: Mohamud Lucas MD Platelet mean volume (Bld) [Entitic vol] 11.9 fL Normal 8.1-13.5 [facility] Comment on above: Performed By: #### C DP #### [facility] [address] [place], [facility] Screening Technician: Mohamud Lucas MD Platelets (Bld) [#/Vol] 259 10*3/uL Normal 138-453 [facility] Comment on above: Performed By: #### C DP #### [facility] [address] [place], [facility] Screening Technician: Mohamud Lucas MD RBC (Bld) [#/Vol] 3.88 10*6/uL Low 3.95-5.11 [facility] Comment on above: Performed By: #### C DP #### [facility] [address] [place], [place] [id number] Screening Technician: Mohamud Lucas MD WBC (Bld) [#/Vol] 11.9 10*3/uL High 3.5-11.3 [facility] Comment on above: Performed By: #### C DP #### [facility] [address] [place], [place] [id number] Screening Technician: Mohamud Lucas MD DRUG SCREEN MULTI URINEon Amphetamine Screen, Ur Negative NEGATIVE [facility] Barbiturate Screen, Ur Negative NEGATIVE [facility] Benzodiazepine Screen, Urine Negative NEGATIVE [facility] Buprenorphine Urine Negative NEGATIVE [facility] Cannabinoid Scrn, Ur Negative NEGATIVE [facility] Cocaine Metabolite, Urine Negative NEGATIVE [facility] Methadone Screen, Urine Negative NEGATIVE [facility] Methamphetamine, Urine Negative NEGATIVE [facility] Opiates, Urine Negative NEGATIVE [facility] Oxycodone Screen, Ur Negative NEGATIVE [facility] Phencyclidine, Urine Negative NEGATIVE [facility] Propoxyphene, Urine Negative NEGATIVE [facility] Tricyclic Antidepressants, Urine Negative NEGATIVE [facility] Comment on above: Drug screen results are to be used for medical purposes only. All positive results are unconfirmed. Testing for employment or legal uses should be sent to a reference laboratory for confirmation. [facility] Drug Scr, Abuse, Uron 2021 Amphetamine(s),Ur Negative Normal [facility]G [facility] Comment on above: Performed By: #### D AU #### [facility] [address] [place] [address] Screening Technician: Mohamud Lucas MD Barbiturate(s),Ur Negative Normal [facility]G [facility] Comment on above: Performed By: #### D AU #### [facility] [address] [place] [address] Screening Technician: Mohamud Lucas MD Benzodiazepine(s) Negative Normal [facility]G [facility] Comment on above: Performed By: #### D AU #### [facility] [address] [place], [facility] Screening Technician: Mohamud Luacs MD Buprenorphrine, Ur Negative Normal NEG [facility] Comment on above: Performed By: #### D AU #### [facility] [address] [place] [address] Screening Technician: Mohamud Lucas MD Cannabinoid(s),Ur Negative Normal [facility]G [facility] Comment on above: Performed By: #### D AU #### [facility] [address] [place] [address] Screening Technician: Mohamud Lucas MD Cocaine Metabolite Negative Normal [facility] Comment on above: Performed By: #### D AU #### [facility] [address] [place], [place] [id number] Screening Technician: Mohamud Lucsa MD Methadone Ql (U) Negative Normal NEG [facility] Comment on above: Performed By: #### D AU #### [facility] [address] [place], [facility] Screening Technician: Mohamud Lucas MD Methamphetamine, Ur Negative Normal NEG [facility] Comment on above: Performed By: #### D AU #### [facility] [address] [place] [phone] Screening Technician: Mohamud Lucas MD Opiate(s), Ur Negative Normal NEG [facility] Comment on above: Performed By: #### D AU #### [facility] [address] [place], [facility] Screening Technician: Mohamud Lucas MD Oxycodone, Urine Negative Normal [facility] Comment on above: Performed By: #### D AU #### [facility] [address] [place] [address] Dr[place], [facility] Screening Technician: Mohamud Lucas MD Phencyclidine, Ur Negative Normal [facility] Comment on above: Performed By: #### D AU #### [facility] [address] [place], [facility] Screening Technician: Mohamud Lucas MD Propoxyphene,Urine Negative Normal NEG [facility] Comment on above: Performed By: #### D AU #### [facility] [address] [place] [address] Screening Technician: Mohamud Lucas MD Tricyclic antidepressants Screen Ql (U) Negative Normal [facility] Comment on above: Result Comment: Drug screen results are to be used for medical purposes only. All positive results are unconfirmed. Testing for employment or legal uses should be sent to a reference laboratory for confirmation. Performed By: #### D #### [address] [place] [address] Screening Technician: Mohamud Lucas MD Microscopic Urinalysison - [facility] Bacteria, UA 2+ Abnormal None [facility] Epithelial Cells UA 2 TO 5 [facility] Interpretation and review of laboratory results Abnormal [facility] RBC, UA 0 TO 2 [facility] WBC, UA 2 TO 5 [facility] Yeast, UA PRESENCE NOTED Abnormal None [facility] OPERATIVE REPORTon OPERATIVE REPORT [address] [id number] OPERATIVE REPORT PATIENT NAME: ALTON DAVIS : 1990 MED REC NO: [id number] ROOM: [id number] ACCOUNT NO: [id number] ADMIT DATE: 12/07/2021 PROVIDER: Matt Light MD [...] section, low transverse uterine segment. ANESTHESIA: Epidural. [employer] CONSULTANT: Maulik Del Toro. ESTIMATED BLOOD LOSS: 600 [...] was extended in a semilunar fashion with building equipment operator's fingers. head was elevated and turned. Enough fundal pressure was used to deliver the head and nares and oropharynx were vigorously suctioned of meconium fluid. Then the shoulders were delivered with some fundal pressure and was then readily delivered. Cord was clamped [...] a running imbricating interlocking fashion. A few [id number] sutures were placed along the central inferior [...] were mentioned. MATT LIGHT MD [id number] Doc#: [id number] CC: Maulik Del Toro [facility] Surgical Pathologyon 022 Surgical Pathology (NOTE) -- Diagnosis -- PLACENTA, DELIVERED: -THIRD TRIMESTER PLACENTA WITH THREE-VESSEL CORD WITH SQUAMOUS METAPLASIA OF AMNION SURFACE. -MEMBRANES WITH MECONIUM LADEN MACROPHAGES. -PLACENTAL DISC WITH FOCAL MILD ACUTE INFLAMMATION OF CHORIONIC PLATE AND SCATTERED MECONIUM LADEN MACROPHAGES IN CHORIONIC PLATE. Mohamud Luacs M.D. Electronically Signed Out 12/09/2021 Clinical Information [...] SURGICAL PATHOLOGY CONSULTATION Patient Name: ALTON DAVIS [facility] Rec: [id number] Path Number: [id number] [employer] [facility] ANATOMIC PATHOLOGY [address] [place] [phone] [facility] Comment on above: Performed By: #### P PPVS #### [employer] [address] [place] [address] Screening Technician: Dhaval Rao MD BIOPHYSICAL PROFILE WO NON STRESS TESTINGon 12-07-2021 Radiology Study observation (narrative) [facility] [employer] Work Phone: Urinalysison 12-07-2021 Bilirubin Urine Negative NEGATIVE [facility] Color, UA Yellow Yellow [facility] Glucose, Ur Negative NEGATIVE [facility] Interpretation and review of laboratory results Abnormal [facility] Ketones Ql (U) Negative NEGATIVE [facility] Leukocyte esterase Test strip Ql (U) Negative NEGATIVE [facility] Nitrite, Urine Negative NEGATIVE [facility] pH, UA 6.0 [facility] Protein, UA Negative NEGATIVE [facility] Specific [place], UA >1.030 High [facility] Turbidity UA Clear Clear [facility] Urine Hgb 1+ Abnormal NEGATIVE [facility] Urobilinogen, Urine Normal Normal [facility] Urinalysis, Routineon 2021 Bilirubin, SemiQt,Ur Negative Normal NEG [facility] Comment on above: Performed By: #### U MICAO, UA #### [facility] [address] [place] [address] Screening Technician: Mohamud Lucas MD Blood, Urine 1+ Abnormal NEG [facility] Comment on above: Performed By: #### U MICAO, UA #### [facility] [address] [place] [id number] Screening Technician: Mohamud Lucas MD Clarity (U) Clear Normal CLEAR [facility] Comment on above: Performed By: #### U MICAO, UA #### [facility] [address] [place] [id number] Screening Technician: Mohamud Lucas MD Color (U) Yellow Normal YEL [facility] Comment on above: Performed By: #### U MICAO, UA #### [facility] [address] [place] [address] Screening Technician: Mohamud Lucas MD Glucose Ql (U) Negative Normal [facility] Comment on above: Performed By: #### U MICAO, UA #### [facility] [address] [place] [address] Screening Technician: Mohamud Lucas MD Ketones Ql (U) Negative Normal NEG [facility] Comment on above: Performed By: #### U MICAO, UA #### [facility] [address] [place], [place] [phone] Screening Technician: Mohamud Lucas MD Leukocyte esterase Test strip Ql (U) Negative Normal NEG [facility] Comment on above: Performed By: #### U MICAO, UA #### [facility] [address] [place], [place] [id number] Screening Technician: Mohamud uLcas MD Nitrite,Ur Negative Normal NEG [facility] Comment on above: Performed By: #### U MICAO, UA #### [facility] [address] [place] [address] Dr[address] [place], [place] [phone] Screening Technician: Mohamud Lucas MD PH,Ur 6.0 Normal 5.0-9.0 [facility] Comment on above: Performed By: #### U MICAO, UA #### [facility] [address] [place] [address] [place] [address] Screening Technician: Mohamud Lucas MD Protein Ql (U) Negative Normal NEG [facility] Comment on above: Performed By: #### U MICAO, UA #### [facility] [address] [place] [address] Dr[place], [place] [phone] Screening Technician: Mohamud Lucas MD Spec. [place],Ur >1.030 High 1.010-1.020 [facility] Comment on above: Performed By: #### U MICAO, UA #### [facility] [address] [place] [address] Screening Technician: Mohamud Lucas MD Urobilinogen,Ur Normal Normal NORM [facility] Comment on above: Performed By: #### U MICAO, UA #### [facility] [address] [place] [address] Screening Technician: Mohamud Lucas MD Urinalysis,Microon 2 ----- Normal [facility] Comment on above: Performed By: #### U MICAO, UA #### [facility] [address] [place] [address] Screening Technician: Mohamud Lucas MD Bacteria 2+ Abnormal NONE [facility] Comment on above: Performed By: #### U MICAO, UA #### [facility] [address] [place] [id number] Screening Technician: Mohamud Lucas MD Epithelial cells LM Ql (Urine sed) 2 TO 5 Austin 0-25 [facility] Comment on above: Performed By: #### U MICAO, UA #### [facility] [address] [place] [address] Screening Technician: Mohamud Lucas MD Urine RBC's 0 TO 2 Normal 0-2 [facility] Comment on above: Performed By: #### U MICAO, UA #### [facility] [address] [place] [address] [place] [address] Screening Technician: oMhamud Lucas MD Urine WBC's 2 TO 5 Normal 0-5 [facility] Comment on above: Performed By: #### U MICAO, UA #### [facility] [address] [place] [address] Screening Technician: Mohamud Lucas MD Yeast PRESENCE NOTED Abnormal [facility] Comment on above: Performed By: #### U MICAO, UA #### [facility] [address] [place] [address] Screening Technician: Mohamud Lucas MD US OB Growthon 11-29-2021 [...] by Param Garnett on 11/30/2021 0718 Normal [facility] Consultant GBS, External Resulton 11-10 GBS, External Result Positive [employer] Phone: [employer] Phone: Q - STREPTOCOCCUS,GROUP B CU LTUREon 11-10-2021 STREPTOCOCCUS, GROUP B CULTURE SEE NOTE Abnormal [facility] Consultant Comment on above: Order Comment: [facility] Testing performed at: [facility], [address] [place] [address], [address] [place] [address], [phone], [employer] Operator: David Whalen MD [facility] Collection Date/Time: [id number] [facility] Results Received Date/Time: [id number] [facility] Reported Date/Time: [id number] Result Comment: STRE PTOCOCCUS, GROUP B CULTURE Micro Number: [id number] Test Status: Final Specimen Source: Vaginal/anorectal Specimen [...] 5 [id number] #### [facility] [address] [place] [address] US OB Growthon 10-03-2021 US OB Growth [...] Anterior fundal Grade I Weight (g) by Lxkbkgixmp73.5 % * These measurements result in an [...] by Param Garnett on 10/04/2021 0920 Normal [facility] Consultant No Panel Informationon 09-22 ABO, External Result Negative [employer] Work Phone: Rh Factor, External Result Negative [employer] Work Phone: [employer] Work Phone: Rhogam, External Resultson 0 09-21-2021 Rhogam, External Result given [employer] Work Phone: [employer] Work Phone: Complete Blood Counton 09-20 Erythrocyte distribution width (RBC) [Ratio] 12.5 % Normal 11.0-15.0 [facility] Consult[facility] Comment on above: Performed By: #### G GLU, CBC #### [facility] [address] [place], [place] [id number] Hematocrit (Bld) [Volume fraction] 32.7 % Low 35.0-47.0 [facility] Consult[facility] Comment on above: Performed By: #### G GLU, CBC #### [facility] [address] [place], [place] [id number] Hemoglobin (Bld) [Mass/Vol] 10.7 g/dL Low 11.6-15.5 [facility] Consultant Comment on above: Performed By: #### G GLU, CBC #### [facility] [address] [place], [place] [id number] MCH (RBC) [Entitic mass] 30.1 pg Normal 27.0-33.0 [facility] Consultant Comment on above: Performed By: #### G GLU, CBC #### [facility] [address] [place], [place] [id number] MCHC (RBC) [Mass/Vol] 32.7 g/dL Normal 32.0-36.0 [facility] Consultant Comment on above: Performed By: #### G GLU, CBC #### [facility] [address] [place], [place] [id number] MCV (RBC) [Entitic vol] 92 fL Normal 80-100 [facility] Consultant Comment on above: Performed By: #### G GLU, CBC #### [facility] [address] [place], [place] [id number] Platelet mean volume (Bld) [Entitic vol] 10.80 fL Normal 7.50-12.50 [facility] Consult[facility] Comment on above: Performed By: #### G GLU, CBC #### [facility] [address] [place], [place] [id number] Platelets (Bld) [#/Vol] 240 10*3/uL Normal 140-400 [facility] Consultant Comment on above: Performed By: #### G GLU, CBC #### [facility] [address] [place], [place] [id number] RBC (Bld) [#/Vol] 3.56 10*6/uL Low 3.90-5.20 [facility] Specialist Comment on above: Performed By: #### G GLU, CBC #### [facility] [address] [place], [place] [id number] RDW-SD 42.5 fL Normal 37.0-50.0 [facility] Comment on above: Performed By: #### G GLU, CBC #### [facility] [address] [place], [place] [id number] WBC (Bld) [#/Vol] 9.5 10*3/uL Normal 3.8-11.0 [facility] Comment on above: Performed By: #### G GLU, CBC #### [facility] [address] [place], [place] [id number] Glucose - Gestational Screen on 09-20-2021 Glucose [Mass/Vol] 128 mg/dL Normal <135 [facility] Specialist Comment on above: Result Comment: A va lue of 135 mg/dL or greater indicates the need for a full glucose tolerance test performed in the fasting state to determine if the patient has gestational diabetes. Performed By: #### G GLU, CBC #### [facility] [address] [place], [place] [id number] US OB Growthon 08-29-2021 US OB Growth [...] by Param Garnett on 09/02/2021 0850 Normal [facility] Consultant US OB 2nd/3rd Trimesteron OB 2nd/3rd Trimester [...] 4.7 cm (20 weeks, 2 days) Head Mclfodqpknoii07.5 cm (20 weeks, 0 days) Abdominal Xynvaetiedzsn06.2 cm (20 weeks, 3 days) Femur Length [...] by Param Garnett on 09/20/2021 0947 Normal [facility] Consultant C. Trachomatis, External Res [facility] 05-04-2021 C. Trachomatis, External Result Not detected [employer] Phone: HIV, External Resulton 05-04 HIV, External Result Non-Reactive [employer] Phone: Hepatitis B, External Result on 05-04-2021 Hep B, External Result Non-Reactive [employer] Phone: N. Gonorrhoeae, External Res ulton 05-04-2021 N. Gonorrhoeae, External Result Not detected [employer] Phone: No Panel Informationon 05-04 [employer] Phone: [employer] Phone: RPR, External Labon 05-04-20 RPR, External Result Non-Reactive [employer] Phone: Rubella Titer, External Resu lton 05-04-2021 Rubella Titer, External Result immune [employer] Phone: Cytologyon 06-05-2017 Cytology (NOTE)[id number] Y LABORATORIESCONSULTING PATHOLOGISTS [facility] [id number] [place], [place] [phone] Fax: GYNECOLOGIC CYTOLOGY REPORTPatient Name: PARMINDER MASSEY#: [id number] #[id number]:1: Cervical material, (ThinPrep vial, Imaging-assisted review)Clinical HistoryNo LMP date givenContraceptive useR87.615 Unsatisfactory pap of cervixHigh Risk HPV DNA testing is requested if the diagnosis is ASC-USINTERPRETATIONCervi mariama material, (ThinPrep vial, Imaging-assisted review):Specimen Adequacy: Satisfactory for evaluation. - Endocervical/transformati on zone component present.Descriptive Diagnosis: Negative for intraepithelial lesion or malignancy.Shift in aniceto suggestive of bacterial vaginosis.Cytotechnologis t: DAFNE. Lazaro, CT(ASCP)Electronically Signed Outcd/06/14/2017 Normal [facility] DHEA Sulfateon 04-09-2017 DHEA Sulfate 107.0 ug/dL Normal 65-380 [facility] Comment on above: Result Comment: [facility] [address] [place] [address] Performed By: #### C YTCGP ####[address] [address] Cortisolon 04-06-2017 Cortisol 10.0 ug/dL Normal [facility] Comment on above: Result Comment: Georges isol Reference Range: AM 6.0-18.4 PM 2.7-10.[address] [address] Performed By: #### G ADILENE, CORTI, INSU, TSHX, PROL, FTST, DHES ####[address] [address] Glucoseon 04-06-2017 Glucose mass conc 83 mg/dL Normal 70-99 [facility] Comment on above: Result Comment: [facility] [address] [place] [address] Performed By: #### G ADILENE, CORTI, INSU, TSHX, PROL, FTST, DHES ####[address] [address] Insulinon 04-06-2017 Insulin 11.1 mU/L Normal [facility] Comment on above: Performed By: #### G ADILENE, CORTI, INSU, TSHX, PROL, FTST, DHES ####[address] [address] Reference Range Normal [facility] Comment on above: Result Comment: Fast in.6-24.930 min: 20-94450 min: 29-8890 min: 26-67350 min: 22-[address] [address] Performed By: #### G ADILENE, CORTI, INSU, TSHX, PROL, FTST, DHES ####[address] [address] Collection Info. NOT REPORTED Normal [facility] Comment on above: Performed By: #### G ADILENE, CORTI, INSU, TSHX, PROL, FTST, DHES ####[address] [address] Prolactinon 04-06-2017 Prolactin 35.67 ug/L High 4.79-23.30 [facility] Comment on above: Result Comment: The presence of macroprolactin may cause interference in female patients with various endocrinological diseases or during .[address] [address] Performed By: #### G ADILENE, CORTI, INSU, TSHX, PROL, FTST, DHES ####[address] [address] TSH w/reflex to FT4on 2016 Thyroid stimulating hormone (TSH) 1.54 m[IU]/L Normal 0.30-5.00 [facility] Comment on above: Result Comment: [address] [address] Performed By: #### G ADILENE, CORTI, INSU, TSHX, PROL, FTST, DHES ####[address] [address] Testosterone, Freeon 017 Sex Horm Bind Glob 133 nmol/L Normal 30-135 [facility] Comment on above: Performed By: #### G ADILENE, CORTI, INSU, TSHX, PROL, FTST, DHES ####[address] [address] Testosterone 27 ng/dL Normal 20-70 [facility] Comment on above: Performed By: #### G ADILENE, CORTI, INSU, TSHX, PROL, FTST, DHES ####[facility] [place] [address] Testosterone,Free 1.7 pg/mL Normal 0.8-7.4 [facility] Comment on above: Result Comment: The concentration of free testosterone is derived from a mathematical expression based on the constant for the binding of testosterone to albumin and/or sex hormone binding globulin.[place] [address] [place] [address] Performed By: #### G ADILENE, CORTI, INSU, TSHX, PROL, FTST, DHES ####[facility] [place] [address] US PELVIS COMPLETEon 017 US PELVIS COMPLETE [...] by:MATT Batresigned by:Ethan Armstrong MD04/06/17Final result Normal [facility] Chlamydia/GC DNA, TPon 03-29 Chlamydia Probe, TP Negative Normal NEG [facility] Comment on above: Result Comment: CHLA MYDIA TRACHOMATIS DNA not detected by nucleic acid amplification. Performed By: #### C YTC ####[address] [address] Gonorrhea Probe, TP Negative Normal NEG [facility] Comment on above: Result Comment: NEIS SERIA GONORRHOEAE DNA not detected by nucleic acid amplification.[address] [id number] [phone] Performed By: #### C YTCGP ####[address] [address] Cytologyon 03-28-2017 Cytology (NOTE)[id number] Y LABORATORIESCONSULTING PATHOLOGISTS CORPORATIONANATOMIC [id number] [place] [phone] Fax: GYNECOLOGIC CYTOLOGY REPORTPatient Name: PARMINDER MASSEY#: [id number] #[id number]:1: Cervical material, (ThinPrep vial, Imaging-assisted review)Clinical HistoryNo LMP date woficF79.4 Encounter for screening for malignant neoplasm of [...] bacterial vaginosis.Cytotechnologis t: SZMARYSE. ALFREDA Larry(ASCP)Electronically Signed Out/04/04/2017 Normal [facility] Vaginitis DNA Probeon 2016 Vaginitis DNA [...] of vaginitis/vaginosis. Report Status FINAL 03/28/2017 Normal [facility] Comment on above: Performed By: #### V AGDNA ####[facility] [address] [place] [address] Vital Signs Date Time Vital Sign Value Performing Clinician Facility 08-06-2024 11:23-0500 Body mass index (BMI) [Ratio] 27.29 kg/m2 Maulik Floro CNM Work Phone: [facility] 08-06-2024 11:23-0500 Body weight 74.39 kg Maulik Floro CNM Work Phone: [facility] 08-06-2024 11:23-0500 Diastolic blood pressure 80 mm[Hg] Maulik Floro CNM Work Phone: [facility] 08-06-2024 11:23-0500 Systolic blood pressure 120 mm[Hg] Maulik Floro CNM Work Phone: [facility] 07-23-2024 10:07-0500 Body mass index (BMI) [Ratio] 27.29 kg/m2 Maulik Floro CNM Work Phone: [facility] 07-23-2024 10:07-0500 Body weight 74.39 kg Maulik Floro CNM Work Phone: [facility] 07-23-2024 10:07-0500 Diastolic blood pressure 80 mm[Hg] Maulik Floro CNM Work Phone: [facility] 07-23-2024 10:07-0500 Systolic blood pressure 120 mm[Hg] Maulik Floro CNM Work Phone: [facility] 06-25-2024 10:32-0500 Body mass index (BMI) [Ratio] 25.79 kg/m2 Maulik Floro CNM Work Phone: [facility] 06-25-2024 10:32-0500 Body weight 70.31 kg Maulik Floro CNM Work Phone: [facility] 06-25-2024 10:32-0500 Diastolic blood pressure 80 mm[Hg] Maulik Floro CNM Work Phone: [facility] 06-25-2024 10:32-0500 Systolic blood pressure 120 mm[Hg] Maulik Floro CNM Work Phone: [facility] 05-21-2024 09:23-0500 Body mass index (BMI) [Ratio] 24.13 kg/m2 Maulik Floro CNM Work Phone: [facility] 05-21-2024 09:23-0500 Body weight 65.77 kg Maulik Floro CNM Work Phone: [facility] 05-21-2024 09:23-0500 Diastolic blood pressure 80 mm[Hg] Maulik Floro CNM Work Phone: [facility] 05-21-2024 09:23-0500 Systolic blood pressure 120 mm[Hg] Maulik Floro CNM Work Phone: [facility] 04-23-2024 09:26-0400 Body mass index (BMI) [Ratio] 22.63 kg/m2 Maulik Floro CNM Work Phone: [facility] 04-23-2024 09:26-0400 Body weight 61.69 kg Maulik Floro CNM Work Phone: [facility] 04-23-2024 09:26-0400 Diastolic blood pressure 70 mm[Hg] Maulik Floro CNM Work Phone: [facility] 04-23-2024 09:26-0400 Systolic blood pressure 112 mm[Hg] Maulik Floro CNM Work Phone: [facility] 03-19-2024 09:31-0400 Body mass index (BMI) [Ratio] 21.8 kg/m2 Maulik Floro CNM Work Phone: [facility] 03-19-2024 09:31-0400 Body weight 59.42 kg Maulik Floro CNM Work Phone: [facility] 03-19-2024 09:31-0400 Diastolic blood pressure 72 mm[Hg] Maulik Del Toro CNM Work Phone: [facility] 03-19-2024 09:31-0400 Systolic blood pressure 112 mm[Hg] Maulik Del Toro CNM Work Phone: [facility] 12-10-2021 07:07-0400 Body temperature 98.1 [degF] Rodo Troy HYDE - CNNeal Work Phone: [facility] [employer] 12-10-2021 07:07-0400 Diastolic blood pressure 65 mm[Hg] Rodomiguel Simmons APRN - CNM Work Phone: [facility] [employer] 12-10-2021 07:07-0400 Heart rate 81 /min Rodomiguel Simmons APRN - CNNeal Work Phone: [facility] [employer] 12-10-2021 07:07-0400 Respiratory rate 18 /min Rodo Simmons APRN - CNNeal Work Phone: [facility] [employer] 12-10-2021 07:07-0400 Systolic blood pressure 114 mm[Hg] Rodomiguel Simmons APRN - CNNeal Work Phone: [facility] 12-08-2021 00:34-0400 SaO2% (BldA) [Mass fraction] 94 % Rodo Troy HYDE - CNNeal Work Phone: [facility] [employer] 12-07-2021 05:40-0400 Body height 165.1 cm Rodomiguel Mason CNNeal Work Phone: [facility] 12-07-2021 05:40-0400 Body mass index (BMI) [Ratio] 30.12 kg/m2 Rodo Mason CNNeal Work Phone: [facility] 12-07-2021 05:40-0400 Body weight 82.1 kg Rodo Troy Mason CNNeal Work Phone: [facility] [employer] Encounters Encounter Date Encounter Type Care Provider Facility Start: 08-06-2024 End: 08-06-2024 Subsequent care visit Maulik Zeeshan Floro CNM Work Phone: [facility] Comment on above: Encounter for superv ision of other normal , third trimester (Primary Dx); History of section Start: 08-06-2024 ambulatory MAULIK L FLORO Not Yudelka ilable Start: 07-27-2024 End: 07-27-2024 Clinisync Result Encounter [...] End: 07-23-2024 Subsequent care visit Maulik Zeeshan Floro CNM Work Phone: [facility] [...] ambulatory MAULIK L FLORO Not Available Start: 12-07-2021 End: 12-10-2021 Evaluation and management of inpatient RODO SHAW [facility] Start: 12-07-2021 End: 12-10-2021 Evaluation and management of inpatient Rodo Simmons AGRICULTURAL INSPECTOR - CNM Work Phone: [facility] Labor and Delivery Comment on above: Third trimester preg corey Start: 06-24-2021 End: 06-24-2021 ambulatory ARINA FLORO Facility: Start: 06-06-2017 End: 06-06-2017 Ambulatory SONU Haney [facility] Start: 04-06-2017 End: 04-07-2017 Ambulatory SONU Haney [facility] Start: 03-28-2017 End: 03-29-2017 Ambulatory SONU Haney [facility] Procedures Date Procedure Procedure Detail Performing Clinician Start: 07-27-2024 ALL CBC WITH AUTO DIFF Narayan Martinez DO Work Phone: Start: 12-08-2021 Blood count complete automated Maulik Olgao AGRICULTURAL INSPECTOR - CNM Work Phone: Start: 12-08-2021 RHO(D) IMMUNE GLOBUL IN, Maulik Floro AGRICULTURAL INSPECTOR - CNM Work Phone: Start: 12-07-2021 SURGICAL PATHOLOGY REPORT Matt Light MD Work Phone: Start: 12-07-2021 Blood count complete auto&auto difrntl wbc Rodo Bryce Shaw AGRICULTURAL INSPECTOR - CNM Work Phone: Start: 12-07-2021 biophysical pr ofile w/o non-stress testing Rodo Simmons AGRICULTURAL INSPECTOR - CNM Work Phone: Start: 12-07-2021 Drug tst prsmv instr mnt chem analyzers pr date Rodo Shaw AGRICULTURAL INSPECTOR - CNM Work Phone: Start: 12-07-2021 Urinalysis microscop ic only Rodo Simmons AGRICULTURAL INSPECTOR - CNM Work Phone: Start: 12-07-2021 Urnls dip stick/tabl et rgnt auto w/o microscopy Rodo Simmons AGRICULTURAL INSPECTOR - CNM Work Phone: Start: 11-10-2021 GBS, EXTERNAL RESULT Hi elieical Provider Start: 09-22-2021 ABO, EXTERNAL RESULT Hi elieical Provider Start: 09-22-2021 RH FACTOR, EXTERNAL RESULT Historical Provider Start: 09-21-2021 RHOGAM, EXTERNAL RESULT Historical Provider Start: 05-04-2021 C. TRACHOMATIS, EXTE RNAL RESULT Historical Provider Start: 05-04-2021 HEPATITIS B, EXTERNA L RESULT Historical Provider Start: 05-04-2021 HIV, EXTERNAL RESULT Hi storical Provider Start: 05-04-2021 N. GONORRHOEAE, EXTE RNAL RESULT Historical Provider Start: 05-04-2021 RPR, EXTERNAL RESULT Hi storical Provider Start: 05-04-2021 RUBELLA TITER, EXTER NAL RESULT Historical Provider Start: 06-05-2017 Microscopic observat ion [Identifier] in Cervix by Cyto stain Rodo Simmons APRN - CNM Work Phone: Start: 04-06-2017 CORTISOL TOTAL SONU DE LA ROSA SER Start: 04-06-2017 DHEA-SULFATE OSNU DE LA ROSASE R Start: 04-06-2017 GLUCOSE, RANDOM SONU BRYAN ASER Start: 04-06-2017 INSULIN, TOTAL SONU FRA SER Start: 04-06-2017 PROLACTIN SONU DE LA ROSASE R Start: 04-06-2017 TESTOSTERONE, FREE SONU DE LA ROSASER Start: 04-06-2017 TSH WITH REFLEX SONU BRYAN ASER Start: 04-06-2017 Us pelvic nonobstetr ic real-time image complete SONU DE LA ROSASER Start: 04-06-2017 US PELVIS COMPLETE TRANSVAGINAL NON [...] Treatment Date Care Activity Detail Author Start: 08-13-2024 End: 08-13-2024 Patient encounter procedure 08/13/2024 10:30 AM EST Routine [facility] [address] [place] [address] Maulik Del Toro CNM [address] [place] [address] [facility] Start: 08-06-2024 End: 08-06-2024 Patient encounter procedure 08/06/2024 11:30 AM EST Routine [facility] [address] [facility] [id number] Maulik Del Toro, CNM [address] [place] [address] [facility] Start: 07-23-2024 End: 07-23-2024 Patient encounter procedure 07/23/2024 10:00 AM EST Routine [facility] [address] [place] [id number] Maulik Del Toro, CNM [address] [place] [address] [facility] Start: 06-24-2024 End: 06-24-2024 Patient encounter procedure [facility] Comment on above: Arrived Start: 05-21-2024 End: 05-21-2024 Patient encounter procedure [facility] Comment on above: Arrived Start: 04-23-2024 End: 04-23-2024 Professional / ancillary services management 04/23/2024 10:00 AM EDT Ancillary Procedure [facility] [address] [place] [address] [facility] Start: 04-23-2024 End: 04-23-2024 Patient encounter procedure [facility] Comment on above: Arrived Start: 03-19-2024 End: 03-19-2025 US for US OB 14+ weeks anatomy scan Imaging Routine related condition in second trimester Expected: 03/19/2024, Expires: 03/19/2025 [facility] Work Phone: Comment on above: Expected: 03/19/2024 , Expires: 03/19/2025 Start: 03-16-2024 Influenza vaccination Influenza Vacc ine (#1) [facility] Start: 03-04-2024 Screening for malign ant neoplasm of cervix [facility] Start: 03-16-2022 Influenza vaccination Flu vacc ine (Season Ended) [facility]: 2020 Screening for malign ant neoplasm of cervix [facility] Start: 06-05-2020 Screening for malign ant neoplasm of cervix Pap smear [facility] Start: 2009 DTaP/Tdap/Td vaccine (1 - Tdap) DTaP/Tdap/Td vaccine (1 - Tdap) [facility] Start: 2008 Hepatitis C screening Hepatitis C sc reen [facility] Start: 2005 HIV screening HIV screen [facility] [employer] Start: 2002 Depression Screen Depression Screen [facility] Start: 1995 COVID-19 Vaccine (1) COVID-19 Vaccin e (1) [facility] Start: 1991 Varicella vaccine (1 of 2 - 2-dose childhood series) Varicella vaccine (1 of 2 - 2-dose childhood series) [facility] Down Nonrebreather mask oxygen Nonrebreather mask oxygen Respiratory Care Routine As directed - RT (PRN) until discontinued starting 12/07/2021 [facility] Phone: Comment on above: As directed - RT (RI N) until discontinued starting 12/07/2021 Oxygen therapy [[facility] Data Set] Initiate Oxygen Therapy Protocol Respiratory Care Routine As Needed until discontinued starting 12/07/2021 [facility] Phone: Comment on above: As Needed until disc ontinued starting 12/07/2021 RHOGAM RHOGAM POSTPAR MARCELINO Blood Bank [employer] Label Print 12/08/2021 7:[address] [facility] Phone: Spirometry panel Incentive drea metry Respiratory Care Routine Every 2hr while awake until discontinued starting 12/08/2021 [facility] [employer] Phone: Comment on above: Every 2hr while awak e until discontinued starting 12/08/2021 Immunizations Immunization Date Immunization Notes Care Provider Fa cili 12-07-2021 diphtheria, tetanus toxoids and acellular pertussis vaccine, unspecified formulation Rodo Simmons AGRICULTURAL INSPECTOR [facility] Work Phone: [facility] [employer] Work Phone: 12-07-2021 measles, mumps and rubella virus vaccine Rodo Simmons AGRICULTURAL INSPECTOR [facility] Work Phone: [facility] [employer] Work Phone: Payers Date Payer Category Payer Private Health Insurance [employer] [id number] 2022 Unknown [employer] [id number] 2022-Present [address] [place] [address] [id number] 2022 Unknown [id number] 2016 Unknown [id number] 1990 Unknown [id number] 2.16.840.1.211317.3.579.2. 593 1990 Unknown [id number] 2.16.840.1.882568.3.579.2. 173 1990 Unknown [id number] 2.16.840.1.113328.3.579.2. 1259 1990 Unknown [id number] 2.16.840.1.010126.3.579.2. 1258 1990 Unknown [id number] 2.16.840.1.944552.3.579.2. 1258 1990 Unknown [id number] 2.16.840.1.314234.3.579.2. 1258 1990 Unknown [id number] 2.16.840.1.030465.3.579.2. 1258 1990 Unknown [id number] 2.16.840.1.704829.3.579.2. 1258 1990 Unknown [id number] 2.16.840.1.538732.3.579.2. 1258 1990 Unknown [id number] 2.16.840.1.013873.3.579.2. 1258 1990 Unknown [id number] 2.16.840.1.712349.3.579.2. 1258 1990 Unknown [id number] 2.16.840.1.469025.3.579.2. 1258 1990 Unknown [id number] 2.16.840.1.008060.3.579.2. 1258 1990 Unknown [id number] 2.16.840.1.684640.3.579.2. 1258 1959 Unknown [id number] Social History Date Type Detail Facility Start: 03-28-2017 End: 06-20-2023 Tobacco smoking status DCIS Ex-smoker [employer] Phone: History of tobacco use Cigarette Smoker B ON [employer] Phone: Start: 03-28-2017 End: 01-29-2024 Cigarettes smoked current (pack per day) - Reported 1 [employer] Phone: Start: 03-28-2017 End: 06-20-2023 Tobacco use and exposure Smokeless tobacco non-user [employer] Phone: Start: 12-07-2021 Alcohol intake Ex-drinker (finding) [facility] Phone: Start: 1990 Sex Assigned At Not on file B ON [employer] Phone: Start: 11-27-2021 End: 12-07-2021 Exposure to SARS-CoV-2 (event) Not sure [employer] Phone: History of tobacco use Current smoker [facility] Start: 01-29-2024 Alcoholic beverage intake Lifetime non-drinker (finding) [facility] Start: 01-29-2024 Tobacco use panel [facility] Start: 05-21-2023 Alcohol Comment caffeine: 1-2 cups per day [facility] Start: 12-23-2023 [facility] Clinical Notes 12-10-2021 to 08-06-2024 Maulik Del Toro, [facility] - 08/06/2024 11:30 AM Kyler Del Toro, [facility] - 07/23/2024 10:00 AM [facility] - 06/25/2024 10:30 AM Kyler Del Toro, [facility] - 06/25/2024 10:30 AM ESTInstructions Note Date & Type Note Facility 08-06-2024 History of Present illness Narrative Subjective No chief complaint on file. Alton Davis is a 34 y.o. at 34w3d with a working estimated date of delivery [...] normal , third trimester History of section Patient very tearful and emotional today. States I'm just really tired. I don't sleep at night and Domitila is laying on me and she was up crying for 1.5 hours in the night. It's ok, I'm just hormonal and tired. Patient denies depression, sadness, suicidal ideation. Continue vitamin. Labs reviewed. GBS taken. Expected mode of delivery Follow up in 1 week for a routine visit. documented in this encounter [facility] 07-23-2024 History of Present illness Narrative Subjective [...] a routine visit. documented in this encounter [facility] 06-25-2024 History of Present illness Narrative [...] a routine visit. documented in this encounter [facility] 06-17-2024 Telephone encounter Note Licha arciniega needs lab result that has her blood type on it and Demo sheet faxed to [phone] [facility] 06-17-2024 Miscellaneous Notes Licha arciniega needs lab result that has her blood type on it and Demo sheet faxed to [phone] documented in this encounter [facility] 05-21-2024 History of Present illness Narrative [...] a routine visit. documented in this encounter [facility] 04-23-2024 History of Present illness Narrative [...] a routine visit. documented in this encounter [facility] 03-19-2024 History of Present illness Narrative [...] a routine visit. documented in this encounter [facility] 12-10-2021 Hospital Discharge instructions Lorin Arias RN - 12/10/2021 Follow-up with your OB doctor as specified. [facility] OB Department phone: Chikis Del Toro, MSN, AGRICULTURAL INSPECTOR, CNM [facility] [address] [facility] [address] DIET Eat a well balanced diet focusing on foods high in fiber and protein. Drink plenty of fluids especially water. To avoid constipation you may take a mild stool softener as recommended by your doctor or fish worm grower. ACTIVITY Gradually increase your activity. Resume exercise regimen only after advice by your doctor or fish worm grower. Avoid lifting anything heavier than a gallon of milk for SIX weeks. Avoid driving until your doctor or fish worm grower has given their approval. Rise slowly from [...] of harming yourself or your . If will not stop crying, contact another adult for help or place infant in their crib on their back and [...] medications as recommended by your doctor or fish worm grower for pain If you develop a warm, [...] vitamins as directed by your doctor or fish worm grower. Refer to the booklet in the folder/binder for more information. If you feel you need more assistance or have questions, please call Vibha Crump IBCLC, media sales consultant, at or the OB department to [...] they become loose or soiled. If used, [place] should be removed by your care provider. [...] your calf. documented in this encounter [facility] [employer] Work Phone: 12-10-2021 History of Present illness [...] provide urine sample. 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 Latest Code Status on File Code Status Date Activated Date Inactivated Comments Full Code 12/07/2021 11:34 PM Full Code 12/07/2021 5:30 AM 12/07/2021 11:33 PM Additional Source Comments INFORMATION SOURCE (unrecogn ized section and content) DATE CREATED AUTHOR 01/08/2018 [facility] DATE CREATED AUTHOR AUTHOR'S ORGANIZ ATION 12/02/2021 [facility] dical Specialist DATE CREATED AUTHOR AUTHOR'S ORGANIZ ATION 12/08/2021 [facility] DATE CREATED AUTHOR AUTHOR'S ORGANIZ ATION 01/15/2022 [facility] DATE CREATED AUTHOR AUTHOR'S ORGANIZ ATION 08/08/2024 [facility] dical Specialists EPIC Reason for Visit (unrecogniz ed section and content) Reason Comments Contractions Specialty Diagnoses / Procedures Referred By Contac t Referred To Contact Diagnoses Uterine contractions Term intolerance to labor, delivered, current hospitalization Rodo Shaw, AGRICULTURAL INSPECTOR - CNM [address] [place] [address] [facility] [address] [place] [address] Referral ID Status Reason Start Date Expiration Date Visits Re quested Visits Authorized [id number] 1 1 Ordered Prescriptions (unrec ognized section [...] Surgical Prophylaxis, 0026 (New Bag - Provider: Doimtila Herzog RN)0027 (Rate/Dose Verify - Provider: Sherry [...] Matt RN)2120 (Given - Provider: Daria Arce, NESS) 0808 (Given - Provider: Usha Murguia RN)2336 (Given - Provider: Daria Arce RN) 0900 [...] RN) 2099 (Due - Provider: Kaushik Lindsey [facility]) 2099 (Due - Provider: Kaushik Lindsey RPH) sodium chloride flush 0.9 % injection 5-40 [...] Sherry Matt RN - Reason: IV Fluid Infusing)2100 (Due) 0900 (Due)2100 (Due) 0900 (Due)2100 (Due) ywythhh-xcoypi-wwnvd pertussis (BOOSTRIX) injection 0.5 mL 0.5 mL, [...] Domitila Herzog RN)2121 (Given - Provider: Daria Arce RN) 0418 (Given - Provider: Ena Gilmore RN)1429 (Given - Provider: Nataliia York, NESS)2336 [...] chew. 0808 (Given - Provider: Usha Murguia, NESS)1816 (Given - Provider: Nataliia York, NESS) 0513 (Given - Provider: Lottie Maldonado RN)1400 [...] Sherry Matt, NESS)1709 (Given - Provider: Sherry Matt, NESS)2314 (Given - Provider: Misa Mcfadden RN) lansinoh [...] 4 HOURS PRN, Starting on Sun12/07/21 at 3, Until Discontinued, or itching, Post-op naloxone (NARCAN) injection 0.4 mg 0.4 mg, IntraVENous, PRN, Starting on Sun12/07/21 at 2332, Until Discontinued, Opioid Reversal, Post-op ondansetron (ZOFRAN) injection 4 mg 4 mg, IntraVENous, EVERY 6 HOURS PRN, Starting on Sun12/07/21 at 2333, Until Discontinued, Nausea, nausea, oxyCODONE (ROXICODONE) immediate release tablet 10 mg(Linked Group 1) 10 mg, Oral, EVERY 4 HOURS PRN, Starting on Sun12/07/21 at 2333, Until Discontinued, Pain Severe (7-10), oxyCODONE (ROXICODONE) immediate release tablet 5 mg(Linked Group 1) 5 mg, Oral, EVERY 4 HOURS PRN, Starting on Sun12/07/21 at 2333, Until Discontinued, Pain Moderate (4-6), sennosides-docusate sodium (SENOKOT-S) 8.6-50 MG tablet 1 tablet 1 tablet, Oral, DAILY PRN, Starting on Sun12/07/21 at 2333, Until Discontinued, Constipation, simethicone (MYLICON) chewable tablet 80 mg 80 mg, Oral, EVERY 6 HOURS PRN, Starting on Sun12/07/21 at 2333, Until Discontinued, Cramping, Flatulence, 1743 (Given - [...] BE BASED ON THE PRIMARY CLINICAL RECORDS. [facility] [employer] provides no warranty or guarantee of the accuracy or completeness of information in this document.
[2024-08-09 10:14] VITALS: BP 122/59; PULSE 90; TEMP 36.3
== END 2024-08-09 10:47 | disposition home or self-care (01) ==
LOC: FBCO 03:10 → FBC 10:06
PROVIDERS: PCP Midwife; Visit Provider Obstetrics & Gynecology
DX: O26.893 Other specified pregnancy related conditions, third trimester (principal); Z3A.34 34 weeks gestation of pregnancy
CPT/HCPCS: 59025

== ENCOUNTER 2024-08-13 04:57 | Outpatient (OUT) | payer OTHER, SELFPAY ==
--- NOTE | 2024-08-13 | US_ITS ---
[address] [address] Patient Name: ALTON LILLY MRN: [facility]:[id number] date: 1990 Sex: F Assigned Patient Location: [facility] Current Patient Location: [facility] Accession/Order Number: [id number] Exam Date: 08/13/2024 09:15 Report Date: 08/13/2024 09:44 At the request of: JEAN DICKERSON Procedure: US OB BPP w non-stress EXAMINATION: US OB BPP w non-stress HISTORY:PRE-TERM LABOR COMPARISON: Ultrasound OB biophysical 08/06/2024 TECHNIQUE: Ultrasound biophysical profile was performed in the radiology department. BREATHING MOVEMENTS: 2 GROSS BODY MOVEMENTS: 2 TONE: 2 QUALITATIVE AMNIOTIC FLUID VOLUME: 2 PRESENTATION: CEPHALIC HEART RATE: 158.82 bpm AMNIOTIC FLUID VOLUME: 12.12 cm GESTATIONAL AGE: 35 weeks 3 days US/US OB BPP w non-stress IMPRESSION: 1. Total biophysical profile score: 8 Electronically authenticated by: DEN SOFIA Date: 08/13/2024 09:44
--- OUTSIDE RECORDS SUMMARY | 2024-08-13 05:00 | XMS_ITS | CCD ---
Author Organization [facility] Care Team Providers Care Senior Product Consultant Name Role Phone SONU GONZALEZ Unavailable Unavailable [...] Propensity to adverse reactions to substance 12-07-2021 [facility] Medications Current Medications Medication Drug Class(es) [...] Active docusate sodium 50 mg / sennosides, jail 8.6 mg oral tablet (1 source) Start: [...] DIFFon BASOPHILS ABSOLUTE AUTO [address] [facility] Basophils/100 WBC (Bld) 0.2 % 0.2 - 2.0 % [facility] Eosinophils/100 WBC (Bld) 0.2 % Low 0.9 - 7.0 % [facility] Erythrocyte distribution width (RBC) [Ratio] 12.6 % 11.0 - 15.0 % [facility] Hematocrit (Bld) [Volume fraction] 33.1 % Low 36.0 - 48.0 % [facility] Hemoglobin (Bld) [Mass/Vol] 11.1 g/dL Low 12.0 - 16.0 g/dL [facility] IMMATURE GRANULOCYTES ABS AUTO 0.[address] [facility] Immature granulocytes/100 WBC (Bld) 1.1 % High 0.0 - 0.5 % [facility] Interpretation and review of laboratory results Abnormal [facility] LYMPHOCYTES ABSOLUTE AUTO 1.[address] [facility] Lymphocytes/100 WBC (Bld) 10.3 % Low 20.5 - 60.0 % [facility] MCH (RBC) [Entitic mass] 30.6 pg 26.7 - 34.[address] [facility] MCHC (RBC) [Mass/Vol] 33.5 g/dL 29.9 - 35.2 g/dL [facility] MCV (RBC) [Entitic vol] 91.2 fL 81.0 - 99.[address] [facility] MONOCYTES ABSOLUTE AUTO 0.[address] [facility] Monocytes/100 WBC (Bld) 6.3 % 1.7 - 12.0 % [facility] NEUTROPHILS ABSOLUTE AUTO 11.[address] [facility] Neutrophils/100 WBC (Bld) 81.9 % High 43.0 - 75.0 % [facility] Platelet mean volume (Bld) [Entitic vol] 10.2 fL 9.5 - 13.[address] [facility] TBH EO # [address] [facility] TBH PLT 224 [facility] RBC 3.[address] [facility] TB WBC 14.[address] [facility] US for pregnancyon TITLE OF EXAM: OB [...] report is generated using voice recognition reporting (Ideal Network). On occasion PowerScribe erroneously drops words from [...] report is generated using voice recognition reporting (Deentycribe). On occasion PowerScribe erroneously drops words from the report or replaces the spoken word with similar sounding words. Please call with any questions/concerns regarding this report.* Dictated and transcribed 06/05/24dpd This report has been electronically signed and approved by the interpreting radiologist. [facility] for pregnancyOrdered By: Yordan Duran on 06-06-[address] [facility] Work Phone: US OB LIMITED 1+ FETUSESon [...] report is generated using voice recognition reporting (Ideal Network). On occasion Bitmenue erroneously drops words from the report or replaces the spoken word with similar sounding words. Please call with any questions/concerns regarding this report.* Dictated and transcribed 06/05/24/dpd This report has been electronically signed and approved by the interpreting radiologist. Normal Not Available US for pregnancyon Radiology Study observation (narrative) [facility] OB 14+ WEEKS ANATOMY SCAN on 04-23-2024 [...] 2.8 cm. Yolk sac diameter 0.3 cm. [place] rump length is 1.5 cm. heart rate [...] SURGICAL PATHOLOGY CONSULTATION Patient Name: ALTON DAVIS [facility] Rec: [id number] Path Number: [id number] [facility] ANATOMIC PATHOLOGY [address] [place] [phone] [facility] BIOPHYSICAL PROFILE WO NON STRESS TESTINGon [...] Ajit Warner MD 12/09/21 Final result Normal [facility] Biophysical profile score 8/8. KUNAL 7.1. The findings were sent to the Radiology Results Communication Center at 10:15 am on 12/07/2021 to be communicated to a licensed caregiver. [facility] EXAMINATION: BIOPHYSICAL PROFILE WITHOUT NON-STRESS [...] fluid index 7.1 with MVP 2.8 cm. [facility] Ajit Warner MD - 12/09/2021 [...] to be communicated to a licensed caregiver. [employer] Phone: BIOPHYSICAL PROFILE WO NON STRESS TESTINGOrdered By: Ajit Warner on 12-09-2021 [facility] Phone: CBCon 12-08-2021 Erythrocyte distribution width (RBC) [Ratio] 14.3 % Normal 11.8-14.4 [facility] Comment on above: Performed By: #### C BC #### [facility] [address] [place] [address] [place] [address] Creative Technologist: Mohamud Lucas MD Hematocrit (Bld) [Volume fraction] 26.3 % Low 36.3-47.1 [facility] Comment on above: Performed By: #### C BC #### [facility] [address] [place] [address] [place] [address] Creative Technologist: Mohamud Lucas MD Hemoglobin (Bld) [Mass/Vol] 8.5 g/dL Low 11.9-15.1 [facility] Comment on above: Performed By: #### C BC #### [address] [place] [address] Creative Technologist: Mohamud Lucas MD MCH (RBC) [Entitic mass] 27.0 pg Normal 25.2-33.5 [facility] Comment on above: Performed By: #### C BC #### [facility] [address] [place], [place] [id number] Creative Technologist: Mohamud Lucas MD MCHC (RBC) [Mass/Vol] 32.3 g/dL Normal 28.4-34.8 [facility] Comment on above: Performed By: #### C BC #### [facility] [address] [place], [place] [id number] Creative Technologist: Mohamud Lucas MD MCV (RBC) [Entitic vol] 83.5 fL Normal 82.6-102.9 [facility] Comment on above: Performed By: #### C BC #### [address] [place], [place] [id number] Creative Technologist: Mohamud Lucas MD NRBC Automated 0.0 per 100 WBC Normal 0.0 [facility] Comment on above: Performed By: #### C BC #### [address] [place], [place] [id number] Creative Technologist: Mohamud Lucas MD Platelet mean volume (Bld) [Entitic vol] 11.1 fL Normal 8.1-13.5 [facility] Comment on above: Performed By: #### C BC #### [address] [place], [facility] Creative Technologist: Mohamud Lucas MD Platelets (Bld) [#/Vol] 219 10*3/uL Normal 138-453 [facility] Comment on above: Performed By: #### C BC #### [address] [place] [address] Creative Technologist: Mohamud Lucas MD RBC (Bld) [#/Vol] 3.15 10*6/uL Low 3.95-5.11 [facility] Comment on above: Performed By: #### C BC #### [facility] [address] [place] [address] Creative Technologist: Mohamud Lucas MD WBC (Bld) [#/Vol] 20.6 10*3/uL High 3.5-11.3 [facility] Comment on above: Performed By: #### C #### [facility] [address] [place] [address] Creative Technologist: Mohamud Lucas MD Hematocrit (Bld) [Volume fraction] 26.3 % Low 36.3 - 47.1 % [facility] Hemoglobin.gastroin testinal spec 1 Ql (Stl) 8.5 g/dL Low 11.9 - 15.1 g/dL [facility] Interpretation and review of laboratory results Abnormal [facility] MCH (RBC) [Entitic mass] 27.0 pg 25.2 - 33.5 pg [facility] MCHC (RBC) [Mass/Vol] 32.3 g/dL 28.4 - 34.8 g/dL [facility] MCV (RBC) [Entitic vol] 83.5 fL 82.6 - 102.9 fL [facility] NRBC Automated 0.0 0.0 per 100 WBC [facility] Platelet distribution width (Bld) [Ratio] 14.3 % 11.8 - 14.4 % [facility] Platelet mean volume (Bld) [Entitic vol] 11.1 fL 8.1 - 13.5 fL [facility] Platelets (Bld) [#/Vol] 219 10*3/uL [facility] RBC (Bld) [#/Vol] 3.15 10*6/uL Low 3.95 - 5.1 1 m/uL [facility] WBC (Bld) [#/Vol] 20.6 10*3/uL High [facility] RhIg Workup (RhoGam)on 12-08 RhIg Workup (RhoGam) Blood Component Type MANUFACTURED PRODUCT Units Ordered 1 ABO/Rh(D) A NEGATIVE Antibody Screen NEGATIVE History Check NO PREVIOUS HISTORY Rhig Eligibility Patient Is A Candidate For Injection Eugenie NEGATIVE Du Antigen NOT TESTED Unit Number [id number] Blood Component Type RHIG Unit Division 00 Status of Unit REL FROM ALLOC Transfusion Status OK TO TRANSFUSE Normal [facility] Comment on above: Performed By: #### R HIGW #### [facility] [address] [place], [place] [id number] Creative Technologist: Mohamud Lucas MD CBC auto differentialon 11-14 Absolute Eos # 0.08 [facility] Absolute Immature Granulocyte 0.08 [facility] Absolute Lymph # 1.81 [facility] Absolute Trigg # 0.88 [facility] Basophils (Bld) [#/Vol] 0.04 10*3/uL [facility] Basophils/100 WBC (Bld) 0 % 0 - 2 % [facility] Eosinophils/100 WBC (Bld) 1 % 1 - 4 % [facility] Hematocrit (Bld) [Volume fraction] 32.8 % Low 36.3 - 47.1 % [facility] Hemoglobin.gastroin testinal spec 1 Ql (Stl) 10.3 g/dL Low 11.9 - 15.1 g/dL [facility] Immature granulocytes/100 WBC (Bld) 1 % High 0 [facility] Interpretation and review of laboratory results Abnormal [facility] Lymphocytes/100 WBC (Bld) 15 % Low 24 - 43 % [facility] MCH (RBC) [Entitic mass] 26.5 pg 25.2 - 33.5 pg [facility] MCHC (RBC) [Mass/Vol] 31.4 g/dL 28.4 - 34.8 g/dL [facility] MCV (RBC) [Entitic vol] 84.5 fL 82.6 - 102.9 fL [facility] Monocytes/100 WBC (Bld) 7 % 3 - 12 % [facility] NRBC Automated 0.0 0.0 per 100 WBC [facility] Platelet distribution width (Bld) [Ratio] 14.2 % 11.8 - 14.4 % [facility] Platelet mean volume (Bld) [Entitic vol] 11.9 fL 8.1 - 13.5 fL [facility] Platelets (Bld) [#/Vol] 259 10*3/uL [facility] RBC (Bld) [#/Vol] 3.88 10*6/uL Low 3.95 - 5.1 1 m/uL [facility] Segmented neutrophils/100 WBC (Bld) 76 % High 36 - 65 % [facility] Segs Absolute 9.01 High [facility] WBC (Bld) [#/Vol] 11.9 10*3/uL High [facility] CBC with Diffon 12-07-2021 Abs. Basophil 0.04 k/uL Normal 0.00-0.20 [facility] Comment on above: Performed By: #### C DP #### [facility] [address] [place] [address] [place] [id number] Creative Technologist: Mohamud Lucas MD Abs.Imm.Granulocyte 0.08 k/uL Normal 0.00-0.30 [facility] Comment on above: Performed By: #### C DP #### [facility] [address] [place] [address] Creative Technologist: Mohamud Lucas MD Abs.Neutrophil (Seg) 9.01 k/uL High 1.50-8.10 [facility] Comment on above: Performed By: #### C DP #### [facility] [address] [place], [place] [address] Creative Technologist: Mohamud Lucas MD Basophils/100 WBC (Bld) 0 % Normal 0-2 [facility] Comment on above: Performed By: #### C DP #### [facility] [address] [place], [facility] Creative Technologist: Mohamud Lucas MD Eosinophils (Bld) [#/Vol] 0.08 10*3/uL Normal 0.00-0.44 [facility] Comment on above: Performed By: #### C DP #### [facility] [address] [place], [place] [id number] Creative Technologist: Mohamud Lucas MD Eosinophils/100 WBC (Bld) 1 % Normal 1-4 [facility] Comment on above: Performed By: #### C DP #### [facility] [address] [place] [address] Dr. [place], [facility] Creative Technologist: Mohamud Lucas MD Erythrocyte distribution width (RBC) [Ratio] 14.2 % Normal 11.8-14.4 [facility] Comment on above: Performed By: #### C DP #### [address] [place] [id number] Creative Technologist: Mohamud Lucas MD Hematocrit (Bld) [Volume fraction] 32.8 % Low 36.3-47.1 [facility] Comment on above: Performed By: #### C DP #### [facility] [address] [place] [address] Dr. [place], [facility] Creative Technologist: Mohamud Lucas MD Hemoglobin (Bld) [Mass/Vol] 10.3 g/dL Low 11.9-15.1 [facility] Comment on above: Performed By: #### C DP #### [address] [place], [facility] Creative Technologist: Mohamud Lucas MD Immature granulocytes/100 WBC (Bld) 1 % High 0 [facility] Comment on above: Performed By: #### C DP #### [facility] [address] [place] [address] Dr. [place], [facility] Creative Technologist: Mohamud Lucas MD Lymphocytes (Bld) [#/Vol] 1.81 10*3/uL Normal 1.10-3.70 [facility] Comment on above: Performed By: #### C DP #### [address] [place], [facility] Creative Technologist: Mohamud Lucas MD Lymphocytes/100 WBC (Bld) 15 % Low 24-43 [facility] Comment on above: Performed By: #### C DP #### [facility] [address] [place], [place] [id number] Creative Technologist: Mohamud Lucas MD MCH (RBC) [Entitic mass] 26.5 pg Normal 25.2-33.5 [facility] Comment on above: Performed By: #### C DP #### [facility] [address] [place], [place] [id number] Creative Technologist: Mohamud Lucas MD MCHC (RBC) [Mass/Vol] 31.4 g/dL Normal 28.4-34.8 [facility] Comment on above: Performed By: #### C DP #### [facility] [address] [place], [facility] Creative Technologist: Mohamud Lucas MD MCV (RBC) [Entitic vol] 84.5 fL Normal 82.6-102.9 [facility] Comment on above: Performed By: #### C DP #### [facility] [address] [place], [place] [id number] Creative Technologist: Mohamud Lucas MD Monocytes (Bld) [#/Vol] 0.88 10*3/uL Normal 0.10-1.20 [facility] Comment on above: Performed By: #### C DP #### [facility] [address] [place] [address] Creative Technologist: Mohamud Lucas MD Monocytes/100 WBC (Bld) 7 % Normal 3-12 [facility] Comment on above: Performed By: #### C DP #### [facility] [address] [place], [place] 1226783 Creative Technologist: Mohamud Lucas MD Neutrophil (Seg) 76 % High 36-65 [facility] Comment on above: Performed By: #### C DP #### [facility] [address] [place], [place] [id number] Creative Technologist: Mohamud Lucas MD NRBC Automated 0.0 per 100 WBC Normal 0.0 [facility] Comment on above: Performed By: #### C DP #### [facility] [address] [place], [place] [id number] Creative Technologist: Mohamud Lucas MD Platelet mean volume (Bld) [Entitic vol] 11.9 fL Normal 8.1-13.5 [facility] Comment on above: Performed By: #### C DP #### [facility] [address] [place], [facility] Creative Technologist: Mohamud Lucas MD Platelets (Bld) [#/Vol] 259 10*3/uL Normal 138-453 [facility] Comment on above: Performed By: #### C DP #### [facility] [address] [place], [facility] Creative Technologist: Mohamud Lucas MD RBC (Bld) [#/Vol] 3.88 10*6/uL Low 3.95-5.11 [facility] Comment on above: Performed By: #### C DP #### [facility] [address] [place], [place] [id number] Creative Technologist: Mohamud Lucas MD WBC (Bld) [#/Vol] 11.9 10*3/uL High 3.5-11.3 [facility] Comment on above: Performed By: #### C DP #### [facility] [address] [place], [place] [id number] Creative Technologist: Mohamud Lucas MD DRUG SCREEN MULTI URINEon Amphetamine Screen, Ur Negative NEGATIVE [facility] Barbiturate Screen, Ur Negative NEGATIVE [facility] Benzodiazepine Screen, Urine Negative NEGATIVE [facility] Buprenorphine Urine Negative NEGATIVE [facility] Cannabinoid Scrn, Ur Negative NEGATIVE [facility] Cocaine Metabolite, Urine Negative NEGATIVE [facility] Methadone Screen, Urine Negative NEGATIVE [facility] Methamphetamine, Urine Negative NEGATIVE [facility] Opiates, Urine Negative NEGATIVE [facility] Oxycodone Screen, Ur Negative NEGATIVE [facility] Phencyclidine, Urine Negative NEGATIVE [facility] Propoxyphene, Urine Negative NEGATIVE [facility] Tricyclic Antidepressants, Urine Negative NEGATIVE [facility] Comment on above: Drug screen results are to be used for medical purposes only. All positive results are unconfirmed. Testing for employment or legal uses should be sent to a reference laboratory for confirmation. [facility] Drug Scr, Abuse, Uron 2021 Amphetamine(s),Ur Negative Normal [facility] Comment on above: Performed By: #### D AU #### [facility] [address] [place] [address] Creative Technologist: Mohamud Lucas MD Barbiturate(s),Ur Negative Normal NEG [facility] Comment on above: Performed By: #### D AU #### [facility] [address] [place] [address] Creative Technologist: Mohamud Lucas MD Benzodiazepine(s) Negative Normal [facility] Comment on above: Performed By: #### D AU #### [facility] [address] [place], [facility] Creative Technologist: Mohamud Lucas MD Buprenorphrine, Ur Negative Normal NEG [facility] Comment on above: Performed By: #### D AU #### [facility] [address] [place] [address] Creative Technologist: Mohamud Lucas MD Cannabinoid(s),Ur Negative Normal [facility]G [facility] Comment on above: Performed By: #### D AU #### [facility] [address] [place] [address] Creative Technologist: Mohamud Lucas MD Cocaine Metabolite Negative Normal [facility] Comment on above: Performed By: #### D AU #### [facility] [address] [place], [place] [id number] Creative Technologist: Mohamud Lucas MD Methadone Ql (U) Negative Normal NEG [facility] Comment on above: Performed By: #### D AU #### [facility] [address] [place], [facility] Creative Technologist: Mohamud Lucas MD Methamphetamine, Ur Negative Normal NEG [facility] Comment on above: Performed By: #### D AU #### [facility] [address] [place] 264[address]83 Creative Technologist: Mohamud Lucas MD Opiate(s), Ur Negative Normal NEG [facility] Comment on above: Performed By: #### D AU #### [facility] [address] [place], [facility] Creative Technologist: Mohamud Lucas MD Oxycodone, Urine Negative Normal [facility] Comment on above: Performed By: #### D AU #### [facility] [address] [place] [address] Dr. [place], [facility] Creative Technologist: Mohamud Lucas MD Phencyclidine, Ur Negative Normal [facility] Comment on above: Performed By: #### D AU #### [facility] [address] [place], [facility] Creative Technologist: Mohamud Lucas MD Propoxyphene,Urine Negative Normal NEG [facility] Comment on above: Performed By: #### D AU #### [facility] [address] [place] [address] Creative Technologist: Mohamud Lucas MD Tricyclic antidepressants Screen Ql (U) Negative Normal [facility] Comment on above: Result Comment: Drug screen results are to be used for medical purposes only. All positive results are unconfirmed. Testing for employment or legal uses should be sent to a reference laboratory for confirmation. Performed By: #### D #### [address] [place] [address] Creative Technologist: Mohamud Lucas MD Microscopic Urinalysison - [facility] Bacteria, UA 2+ Abnormal None [facility] Epithelial Cells UA 2 TO 5 [facility] Interpretation and review of laboratory results Abnormal [facility] RBC, UA 0 TO 2 [facility] WBC, UA 2 TO 5 [facility] Yeast, UA PRESENCE NOTED Abnormal None [facility] OPERATIVE REPORTon OPERATIVE REPORT [address] [address] OPERATIVE REPORT PATIENT NAME: ALTON DAVIS : 1990 MED REC NO: [id number] ROOM: 0208 ACCOUNT NO: [id number] ADMIT DATE: 12/07/2021 PROVIDER: Matt Light MD [...] section, low transverse uterine segment. ANESTHESIA: Epidural. [employer] COUNSELOR: Maulik Del Toro. 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 head was elevated and [...] a running imbricating interlocking fashion. A few [id number] sutures were placed along the central inferior [...] were mentioned. MATT LIGHT MD [id number] Doc#: [id number] CC: Maulik Del Toro [facility] Surgical Pathologyon 022 Surgical Pathology (NOTE) -- [...] SURGICAL PATHOLOGY CONSULTATION Patient Name: ALTON DAVIS [facility] Rec: [id number] Path Number: [id number] [facility] ANATOMIC PATHOLOGY [address] [place] [phone] [facility] Comment on above: Performed By: #### P PPVS #### [email or web address] [address] [place] [id number] Creative Technologist: Dhaval Rao MD BIOPHYSICAL PROFILE WO NON STRESS TESTINGon 12-07-2021 Radiology Study observation (narrative) [facility] Primary Data Work Phone: Urinalysison 12-07-2021 Bilirubin Urine Negative NEGATIVE [facility] Color, UA Yellow Yellow [facility] Glucose, Ur Negative NEGATIVE [facility] Interpretation and review of laboratory results Abnormal [facility] Ketones Ql (U) Negative NEGATIVE [facility] Leukocyte esterase Test strip Ql (U) Negative NEGATIVE [facility] Nitrite, Urine Negative NEGATIVE [facility] pH, UA 6.0 [facility] Protein, UA Negative NEGATIVE [facility] Specific [place], UA >1.030 High [facility] Turbidity UA Clear Clear [facility] Urine Hgb 1+ Abnormal NEGATIVE [facility] Urobilinogen, Urine Normal Normal [facility] Urinalysis, Routineon 2021 Bilirubin, SemiQt,Ur Negative Normal NEG [facility] Comment on above: Performed By: #### U MICAO, UA #### [facility] [address] [place] [address] Creative Technologist: Mohamud Lucas MD Blood, Urine 1+ Abnormal NEG [facility] Comment on above: Performed By: #### U MICAO, UA #### [facility] [address] [place] [id number] Creative Technologist: Mohamud Lucas MD Clarity (U) Clear Normal CLEAR [facility] Comment on above: Performed By: #### U MICAO, UA #### [facility] [address] [place] [id number] Creative Technologist: Mohamud Lucas MD Color (U) Yellow Normal YEL [facility] Comment on above: Performed By: #### U MICAO, UA #### [facility] [address] [place] [address] Creative Technologist: Mohamud Lucas MD Glucose Ql (U) Negative Normal [facility] Comment on above: Performed By: #### U MICAO, UA #### [facility] [address] [place] [address] Creative Technologist: Mohamud Lucas MD Ketones Ql (U) Negative Normal NEG [facility] Comment on above: Performed By: #### U MICAO, UA #### [facility] [address] [place], [place] [id number] Creative Technologist: Mohamud Lucas MD Leukocyte esterase Test strip Ql (U) Negative Normal NEG [facility] Comment on above: Performed By: #### U MICAO, UA #### [facility] [address] [place], [place] [id number] Creative Technologist: Mohamud Lucas MD Nitrite,Ur Negative Normal NEG [facility] Comment on above: Performed By: #### U MICAO, UA #### [facility] [address] [place] [address] [place] [place], [place] 09[address]83 Creative Technologist: Mohamud Lucas MD PH,Ur 6.0 Normal 5.0-9.0 [facility] Comment on above: Performed By: #### U MICAO, UA #### [facility] [address] [place] [address] [place] [address] Creative Technologist: Mohamud Lucas MD Protein Ql (U) Negative Normal NEG [facility] in Hospital Comment on above: Performed By: #### U MICAO, UA #### [facility] [address] [place] [address] [place] [place], [place] 3099183 Creative Technologist: Mohamud Lucas MD Spec. [place],Ur >1.030 High 1.010-1.020 [facility] Comment on above: Performed By: #### U MICAO, UA #### [facility] [address] [place] [address] Creative Technologist: Mohamud Lucas MD Urobilinogen,Ur Normal Normal NORM [facility] Comment on above: Performed By: #### U MICAO, UA #### [facility] [address] [place] [address] Creative Technologist: Mohamud Lucas MD Urinalysis,Microon 2 ----- Normal [facility] Comment on above: Performed By: #### U MICAO, UA #### [facility] [address] [place] [address] Creative Technologist: Mohamud Lucas MD Bacteria 2+ Abnormal NONE [facility] Comment on above: Performed By: #### U MICAO, UA #### [facility] [address] [place] 84[address] Creative Technologist: Mohamud Lucas MD Epithelial cells LM Ql (Urine sed) 2 TO 5 [place] 0-25 [facility] Comment on above: Performed By: #### U MICAO, UA #### [facility] [address] [place] [address] Creative Technologist: Mohamud Lucas MD Urine RBC's 0 TO 2 Normal 0-2 [facility] Comment on above: Performed By: #### U MICAO, UA #### [facility] [address] [place] [address] [place] [address] Creative Technologist: Mohamud Lucas MD Urine WBC's 2 TO 5 Normal 0-5 [facility] Comment on above: Performed By: #### U MICAO, UA #### [facility] [address] [place] [address] Creative Technologist: Mohamud Lucas MD Yeast PRESENCE NOTED Abnormal [facility] Comment on above: Performed By: #### U MICAO, UA #### [facility] [address] [place] [address] Creative Technologist: Mohamud Lucas MD US OB Growthon 11-29-2021 [...] by Param Garnett on 11/30/2021 0718 Normal [facility] [employer] GBS, External Resulton 11-10 GBS, External Result Positive [employer] Phone: [employer] Phone: Q - STREPTOCOCCUS,GROUP B CU LTUREon 11-10-2021 STREPTOCOCCUS, GROUP B CULTURE SEE NOTE Abnormal [facility] Comment on above: Order Comment: [facility] performed at: [employer] [facility], [address] [place] [address], [address] [place] [address], [id number], Cabinet Mounter: David Whalen MD [facility] Collection Date/Time: [id number] [facility] Results Received Date/Time: [id number] [facility] Reported Date/Time: [id number] Result Comment: STRE PTOCOCCUS, GROUP B CULTURE Micro Number: [id number] Test Status: Final Specimen Source: Vaginal/anorectal Specimen [...] 5 [id number] #### [facility] [address] [place] [address] US OB Growthon 10-03-2021 US OB Growth [...] Anterior fundal Grade I Weight (g) by Mezyrcqwuc64.5 % * These measurements result in an [...] by Param Garnett on 10/04/2021 0920 Normal [facility] [employer] [facility] No Panel Informationon 09-22 ABO, External Result Negative [employer] Work Phone: Rh Factor, External Result Negative [facility] Work Phone: [facility] Work Phone: Rhogam, External Resultson 0 09-21-2021 Rhogam, External Result given [facility] Work Phone: [employer] Work Phone: Complete Blood Counton 09-20 Erythrocyte distribution width (RBC) [Ratio] 12.5 % Normal 11.0-15.0 [facility] [employer] [facility] Comment on above: Performed By: #### G GLU, CBC #### [facility] [address] [place], [place] [id number] Hematocrit (Bld) [Volume fraction] 32.7 % Low 35.0-47.0 [facility] [employer] [facility] Comment on above: Performed By: #### G GLU, CBC #### [facility] [address] [place], [place] [id number] Hemoglobin (Bld) [Mass/Vol] 10.7 g/dL Low 11.6-15.5 [facility] [employer] [facility] Comment on above: Performed By: #### G GLU, CBC #### [facility] [address] [place], [place] [id number] MCH (RBC) [Entitic mass] 30.1 pg Normal 27.0-33.0 [facility] [employer] [facility] Comment on above: Performed By: #### G GLU, CBC #### [facility] [address] [place], [place] [id number] MCHC (RBC) [Mass/Vol] 32.7 g/dL Normal 32.0-36.0 [facility] [employer] Comment on above: Performed By: #### G GLU, CBC #### [facility] [address] [place], [place] [id number] MCV (RBC) [Entitic vol] 92 fL Normal 80-100 [facility] [employer] [facility] Comment on above: Performed By: #### G GLU, CBC #### [facility] [address] [place], [place] [id number] Platelet mean volume (Bld) [Entitic vol] 10.80 fL Normal 7.50-12.50 [facility] [employer] [facility] Comment on above: Performed By: #### G GLU, CBC #### [facility] [address] [place], [place] [id number] Platelets (Bld) [#/Vol] 240 10*3/uL Normal 140-400 [facility] [employer] [facility] Comment on above: Performed By: #### G GLU, CBC #### [facility] [address] [place], [place] [id number] RBC (Bld) [#/Vol] 3.56 10*6/uL Low 3.90-5.20 [facility] Specialist Comment on above: Performed By: #### G GLU, CBC #### [facility] [address] [place], [place] [id number] RDW-SD 42.5 fL Normal 37.0-50.0 [facility] Comment on above: Performed By: #### G GLU, CBC #### [facility] [address] [place], [place] [id number] WBC (Bld) [#/Vol] 9.5 10*3/uL Normal 3.8-11.0 [facility] Comment on above: Performed By: #### G GLU, CBC #### [facility] [address] [place], [place] [id number] Glucose - Gestational Screen on 09-20-2021 Glucose [Mass/Vol] 128 mg/dL Normal <135 [facility] Specialist Comment on above: Result Comment: A va lue of 135 mg/dL or greater indicates the need for a full glucose tolerance test performed in the fasting state to determine if the patient has gestational diabetes. Performed By: #### G GLU, CBC #### [facility] [address] [place], [place] [id number] US OB Growthon 08-29-2021 US OB Growth [...] by Param Garnett on 09/02/2021 0850 Normal [facility] [employer] [facility] US OB 2nd/3rd Trimesteron OB 2nd/3rd Trimester [...] 4.7 cm (20 weeks, 2 days) Head Yjctkogpipngs81.5 cm (20 weeks, 0 days) Abdominal Hfxaseupbczus69.2 cm (20 weeks, 3 days) Femur Length [...] by Param Garnett on 09/20/2021 0947 Normal [facility] C. Trachomatis, External Res [facility] 05-04-2021 C. Trachomatis, External Result Not detected [employer] Phone: HIV, External Resulton 05-04 HIV, External Result Non-Reactive [employer] Phone: Hepatitis B, External Result on 05-04-2021 Hep B, External Result Non-Reactive [employer] Phone: N. Gonorrhoeae, External Res ulton 05-04-2021 N. Gonorrhoeae, External Result Not detected [employer] Phone: No Panel Informationon 05-04 [employer] Phone: [employer] Phone: RPR, External Labon 05-04-20 RPR, External Result Non-Reactive [employer] Phone: Rubella Titer, External Resu lton 05-04-2021 Rubella Titer, External Result immune [employer] Phone: Cytologyon 06-05-2017 Cytology (NOTE)[id number] Y LABORATORIESCONSULTING PATHOLOGISTS [facility] [id number] [place], [place] [phone] Fax: GYNECOLOGIC CYTOLOGY REPORTPatient Name: PARMINDER MASSEY#: [id number] #[id number]:1: Cervical material, (ThinPrep vial, Imaging-assisted review)Clinical HistoryNo LMP date givenContraceptive useR87.615 Unsatisfactory pap of cervixHigh Risk HPV DNA testing is requested if the diagnosis is ASC-USINTERPRETATIONCervi mariama material, (ThinPrep vial, Imaging-assisted review):Specimen Adequacy: Satisfactory for evaluation. - Endocervical/transformati on zone component present.Descriptive Diagnosis: Negative for intraepithelial lesion or malignancy.Shift in aniceto suggestive of bacterial vaginosis.Cytotechnologis t: DAFNE. Lazaro, CT(ASCP)Electronically Signed Outcd/06/14/2017 Normal [facility] DHEA Sulfateon 04-09-2017 DHEA Sulfate 107.0 ug/dL Normal 65-380 [facility] Comment on above: Result Comment: [facility] [employer] [address] [place] [address] Performed By: #### C YTCGP ####[address] [address] Cortisolon 04-06-2017 Cortisol 10.0 ug/dL Normal [facility] Comment on above: Result Comment: Georges isol Reference Range: AM 6.0-18.4 PM 2.7-10.[address] [address] Performed By: #### G ADILENE, CORTI, INSU, TSHX, PROL, FTST, DHES ####[address] [address] Glucoseon 04-06-2017 Glucose mass conc 83 mg/dL Normal 70-99 [facility] Comment on above: Result Comment: [facility] [employer] [address] [place] [address] Performed By: #### G ADILENE, CORTI, INSU, TSHX, PROL, FTST, DHES ####[address] [address] Insulinon 04-06-2017 Insulin 11.1 mU/L Normal [facility] Comment on above: Performed By: #### G ADILENE, CORTI, INSU, TSHX, PROL, FTST, DHES ####[address] [address] Reference Range Normal [facility] Comment on above: Result Comment: Fast in.6-24.930 min: 20-72018 min: 29-8890 min: 26-36891 min: 22-[address] [address] Performed By: #### G ADILENE, CORTI, INSU, TSHX, PROL, FTST, DHES ####[address] [address] Collection Info. NOT REPORTED Normal [facility] Comment on above: Performed By: #### G ADILENE, CORTI, INSU, TSHX, PROL, FTST, DHES ####[address] [address] Prolactinon 04-06-2017 Prolactin 35.67 ug/L High 4.79-23.30 [facility] Comment on above: Result Comment: The presence of macroprolactin may cause interference in female patients with various endocrinological diseases or during .[address] [address] Performed By: #### G ADILENE, CORTI, INSU, TSHX, PROL, FTST, DHES ####[address] [address] TSH w/reflex to FT4on 2016 Thyroid stimulating hormone (TSH) 1.54 m[IU]/L Normal 0.30-5.00 [facility] Comment on above: Result Comment: [address] [address] Performed By: #### G ADILENE, CORTI, INSU, TSHX, PROL, FTST, DHES ####[address] [address] Testosterone, Freeon 017 Sex Horm Bind Glob 133 nmol/L Normal 30-135 [facility] Comment on above: Performed By: #### G ADILENE, CORTI, INSU, TSHX, PROL, FTST, DHES ####[address] [address] Testosterone 27 ng/dL Normal 20-70 [facility] Comment on above: Performed By: #### G ADILENE, CORTI, INSU, TSHX, PROL, FTST, DHES ####[facility] [place] [address] Testosterone,Free 1.7 pg/mL Normal 0.8-7.4 [facility] Comment on above: Result Comment: The concentration of free testosterone is derived from a mathematical expression based on the constant for the binding of testosterone to albumin and/or sex hormone binding globulin.[place] [address] [place] [address] Performed By: #### G ADILENE, CORTI, INSU, TSHX, PROL, FTST, DHES ####[facility] [place] [address] US PELVIS COMPLETEon 017 US PELVIS COMPLETE [...] by:MATT Batresigned by:Ethan Armstrong MD04/06/17Final result Normal [facility] Chlamydia/GC DNA, TPon 03-29 Chlamydia Probe, TP Negative Normal NEG [facility] Comment on above: Result Comment: CHLA MYDIA TRACHOMATIS DNA not detected by nucleic acid amplification. Performed By: #### C YTC ####[address] [address] Gonorrhea Probe, TP Negative Normal NEG [facility] Comment on above: Result Comment: NEIS SERIA GONORRHOEAE DNA not detected by nucleic acid amplification.[address] [id number] [phone] Performed By: #### C YTCGP ####[address] [address] Cytologyon 03-28-2017 Cytology (NOTE)[id number] Y LABORATORIESCONSULTING PATHOLOGISTS CORPORATIONANATOMIC [id number] [place] [phone] Fax: GYNECOLOGIC CYTOLOGY REPORTPatient Name: PARMINDER MASSEY#: [id number] #[id number]:1: Cervical material, (ThinPrep vial, Imaging-assisted review)Clinical HistoryNo LMP date iinpqB43.4 Encounter for screening for malignant neoplasm of [...] t: SZMARYSE. ALFREDA Larry(ASCP)Electronically Signed Out/04/04/2017 Normal [facility] Vaginitis DNA Probeon 2016 Vaginitis DNA Probe [...] of vaginitis/vaginosis. Report Status FINAL 03/28/2017 Normal [facility] Comment on above: Performed By: #### V AGDNA ####[facility] [address] [place] [address] Vital Signs Date Time Vital Sign Value Performing Clinician Facility 08-06-2024 11:23-0500 Body mass index (BMI) [Ratio] 27.29 kg/m2 Maulik Floro CNM Work Phone: [facility] 08-06-2024 11:23-0500 Body weight 74.39 kg Maulik Floro CNM Work Phone: [facility] 08-06-2024 11:23-0500 Diastolic blood pressure 80 mm[Hg] Maulik Floro CNM Work Phone: [facility] 08-06-2024 11:23-0500 Systolic blood pressure 120 mm[Hg] Maulik Floro CNM Work Phone: [facility] 07-23-2024 10:07-0500 Body mass index (BMI) [Ratio] 27.29 kg/m2 Maulik Floro CNM Work Phone: [facility] 07-23-2024 10:07-0500 Body weight 74.39 kg Maulik Floro CNM Work Phone: [facility] 07-23-2024 10:07-0500 Diastolic blood pressure 80 mm[Hg] Maulik Floro CNM Work Phone: [facility] 07-23-2024 10:07-0500 Systolic blood pressure 120 mm[Hg] Maulik Floro CNM Work Phone: [facility] 06-25-2024 10:32-0500 Body mass index (BMI) [Ratio] 25.79 kg/m2 Maulik Floro CNM Work Phone: [facility] 06-25-2024 10:32-0500 Body weight 70.31 kg Maulik Floro CNM Work Phone: [facility] 06-25-2024 10:32-0500 Diastolic blood pressure 80 mm[Hg] Maulik Floro CNM Work Phone: [facility] 06-25-2024 10:32-0500 Systolic blood pressure 120 mm[Hg] Maulik Floro CNM Work Phone: [facility] 05-21-2024 09:23-0500 Body mass index (BMI) [Ratio] 24.13 kg/m2 Maulik Floro CNM Work Phone: [facility] 05-21-2024 09:23-0500 Body weight 65.77 kg Maulik Floro CNM Work Phone: [facility] 05-21-2024 09:23-0500 Diastolic blood pressure 80 mm[Hg] Maulik Floro CNM Work Phone: [facility] 05-21-2024 09:23-0500 Systolic blood pressure 120 mm[Hg] Maulik Floro CNM Work Phone: [facility] 04-23-2024 09:26-0400 Body mass index (BMI) [Ratio] 22.63 kg/m2 Maulik Floro CNM Work Phone: [facility] 04-23-2024 09:26-0400 Body weight 61.69 kg Maulik Floro CNM Work Phone: [facility] 04-23-2024 09:26-0400 Diastolic blood pressure 70 mm[Hg] Maulik Floro CNM Work Phone: [facility] 04-23-2024 09:26-0400 Systolic blood pressure 112 mm[Hg] Maulik Floro CNM Work Phone: [facility] 03-19-2024 09:31-0400 Body mass index (BMI) [Ratio] 21.8 kg/m2 Maulik Floro CNM Work Phone: [facility] 03-19-2024 09:31-0400 Body weight 59.42 kg Maulik Floro CNM Work Phone: [facility] 03-19-2024 09:31-0400 Diastolic blood pressure 72 mm[Hg] Maulik Del Toro CNM Work Phone: [facility] 03-19-2024 09:31-0400 Systolic blood pressure 112 mm[Hg] Maulik Del Toro CNM Work Phone: [facility] 12-10-2021 07:07-0400 Body temperature 98.1 [degF] Rodo Troy HYDE - CNNeal Work Phone: [facility] [place] [facility] [employer] 12-10-2021 07:07-0400 Diastolic blood pressure 65 mm[Hg] Rodomiguel Simmons APRN - CNM Work Phone: [facility] [place] [facility] [employer] 12-10-2021 07:07-0400 Heart rate 81 /min Rodomiguel Simmons APRN - CNNeal Work Phone: [facility] [employer] [facility] [place] [facility] [employer] 12-10-2021 07:07-0400 Respiratory rate 18 /min Rodo Simmons APRN - CNNeal Work Phone: [facility] [employer] [facility] [place] [facility] [employer] 12-10-2021 07:07-0400 Systolic blood pressure 114 mm[Hg] Rodomiguel Simmons APRN - CNNeal Work Phone: [facility] 12-08-2021 00:34-0400 SaO2% (BldA) [Mass fraction] 94 % Rodo Troy HYDE - CNNeal Work Phone: [facility] [employer] 12-07-2021 05:40-0400 Body height 165.1 cm Rodomiguel Mason CNNeal Work Phone: [facility] 12-07-2021 05:40-0400 Body mass index (BMI) [Ratio] 30.12 kg/m2 Rodo Mason CNNeal Work Phone: [facility] 12-07-2021 05:40-0400 Body weight 82.1 kg Rodo Troy Mason CNNeal Work Phone: [facility] [employer] Encounters Encounter Date Encounter Type Care Provider [...] Evaluation and management of inpatient RODO SHAW [facility] Start: 12-07-2021 End: 12-10-2021 Evaluation and management of inpatient Rodo Simmons ROLLING MACHINE TENDER - CNM Work Phone: [facility] Labor and Delivery Comment on above: Third trimester preg corey Start: 06-24-2021 End: 06-24-2021 ambulatory ARINA FLORO Facility: Start: 06-06-2017 End: 06-06-2017 Ambulatory SONU Haney [facility] Start: 04-06-2017 End: 04-07-2017 Ambulatory SONU Haney [facility] Start: 03-28-2017 End: 03-29-2017 Ambulatory SONU Haney [facility] Procedures Date Procedure Procedure Detail Performing Clinician Start: 07-27-2024 ALL CBC WITH AUTO DIFF Narayan Martinez DO Work Phone: Start: 12-08-2021 Blood count complete automated Maulik Olgao ROLLING MACHINE TENDER - CNM Work Phone: Start: 12-08-2021 RHO(D) IMMUNE GLOBUL IN, Maulik Floro ROLLING MACHINE TENDER - CNM Work Phone: Start: 12-07-2021 SURGICAL PATHOLOGY REPORT Matt Light MD Work Phone: Start: 12-07-2021 Blood count complete auto&auto difrntl wbc Rodo Bryce Shaw ROLLING MACHINE TENDER - CNM Work Phone: Start: 12-07-2021 biophysical pr ofile w/o non-stress testing Rodo Simmons ROLLING MACHINE TENDER - CNM Work Phone: Start: 12-07-2021 Drug tst prsmv instr mnt chem analyzers pr date Rodo Shaw ROLLING MACHINE TENDER - CNM Work Phone: Start: 12-07-2021 Urinalysis microscop ic only Rodo Simmons ROLLING MACHINE TENDER - CNM Work Phone: Start: 12-07-2021 Urnls dip stick/tabl et rgnt auto w/o microscopy Rodo Simmons ROLLING MACHINE TENDER - CNM Work Phone: Start: 11-10-2021 GBS, [...] LA ROSA SER Start: 04-06-2017 DHEA-SULFATE SONU DE LA ROSASE R Start: 04-06-2017 GLUCOSE, [...] 10:30 AM EST Routine [facility] [address] [place] [address] Maulik Del Toro CNM [address] [place] [address] [facility] Start: 08-06-2024 End: 08-06-2024 Patient encounter procedure 08/06/2024 11:30 AM EST Routine [facility] [address] [place] [id number] Maulik Del Toro, CNM [address] [place] [address] [facility] Start: 07-23-2024 End: 07-23-2024 Patient encounter procedure 07/23/2024 10:00 AM EST Routine [facility] [address] [place] [id number] Maulik Del Toro, CNM [address] [place] [address] [facility] Start: 06-24-2024 End: 06-24-2024 Patient encounter procedure [facility] Comment on above: Arrived Start: 05-21-2024 End: 05-21-2024 Patient encounter procedure [facility] Comment on above: Arrived Start: 04-23-2024 End: 04-23-2024 Professional / ancillary services management 04/23/2024 10:00 AM EDT Ancillary Procedure [facility] [address] [place] [address] [facility] Start: 04-23-2024 End: 04-23-2024 Patient encounter procedure [facility] Comment on above: Arrived Start: 03-19-2024 End: 03-19-2025 US for US OB 14+ weeks anatomy scan Imaging Routine related condition in second trimester Expected: 03/19/2024, Expires: 03/19/2025 [facility] Work Phone: Comment on above: Expected: 03/19/2024 , Expires: 03/19/2025 Start: 03-16-2024 Influenza vaccination Influenza Vacc ine (#1) [facility] Start: 03-04-2024 Screening for malign ant neoplasm of cervix [facility] Start: 03-16-2022 Influenza vaccination Flu vacc ine (Season Ended) [facility] Start: 2020 Screening for malign ant neoplasm of cervix [facility] Start: 06-05-2020 Screening for malign ant neoplasm of cervix Pap smear [facility] Start: 2009 DTaP/Tdap/Td vaccine (1 - Tdap) DTaP/Tdap/Td vaccine (1 - Tdap) [facility] Start: 2008 Hepatitis C screening Hepatitis C sc reen [facility] Start: 2005 HIV screening HIV screen [facility] [employer] Start: 2002 Depression Screen Depression Screen [facility] Start: 1995 COVID-19 Vaccine (1) COVID-19 Vaccin e (1) [facility] Start: 1991 Varicella vaccine (1 of 2 - 2-dose childhood series) Varicella vaccine (1 of 2 - 2-dose childhood series) [facility] [employer] Nonrebreather mask oxygen Nonrebreather mask oxygen Respiratory Care Routine As directed - RT (PRN) until discontinued starting 12/07/2021 [facility] Phone: Comment on above: As directed - RT (NE N) until discontinued starting 12/07/2021 Oxygen therapy [[facility] Data Set] Initiate Oxygen Therapy Protocol Respiratory Care Routine As Needed until discontinued starting 12/07/2021 [facility] Phone: Comment on above: As Needed until disc ontinued starting 12/07/2021 RHOGAM RHOGAM POSTPAR MARCELINO Blood Bank [employer] Label Print 12/08/2021 7:15 AM EDT [facility] Phone: Spirometry panel Incentive drea metry Respiratory Care Routine Every 2hr while awake until discontinued starting 12/08/2021 [facility] [employer] Phone: Comment on above: Every 2hr while awak e until discontinued starting 12/08/2021 Immunizations Immunization Date Immunization Notes Care Provider Fa cili 12-07-2021 diphtheria, tetanus toxoids and acellular pertussis vaccine, unspecified formulation Rodo Simmons ROLLING MACHINE TENDER [facility] Work Phone: [facility] [employer] Work Phone: 12-07-2021 measles, mumps and rubella virus vaccine Rodo Simmons ROLLING MACHINE TENDER [facility] Work Phone: [facility] [employer] Work Phone: Payers Date Payer Category Payer Private Health Insurance [employer] [id number] 2022 Unknown [employer] [id number] 2022-Present [address] [place] [address] [id number] 2022 Unknown [id number] 2016 Unknown [id number] 1990 Unknown [id number] 1990 Unknown [id number] 2.16.840.1.995974.3.579.2. 173 1990 Unknown [id number] 2.16.840.1.552050.3.579.2. 1259 1990 Unknown [id number] 2.16.840.1.880332.3.579.2. 1258 1990 Unknown [id number] 2.16.840.1.752919.3.579.2. 1258 1990 Unknown [id number] 2.16.840.1.900027.3.579.2. 1258 1990 Unknown [id number] 2.16.840.1.431470.3.579.2. 1258 1990 Unknown [id number] 2.16.840.1.124830.3.579.2. 1258 1990 Unknown [id number] 2.16.840.1.697686.3.579.2. 1258 1990 Unknown [id number] 2.16.840.1.058607.3.579.2. 1258 1990 Unknown [id number] 2.16.840.1.866270.3.579.2. 1258 1990 Unknown [id number] 2.16.840.1.432591.3.579.2. 1258 1990 Unknown [id number] 2.16.840.1.821015.3.579.2. 1258 1990 Unknown [id number] 2.16.840.1.339971.3.579.2. 1258 1959 Unknown [id number] Social History Date Type Detail Facility Start: 03-28-2017 End: 06-20-2023 Tobacco smoking status GAIS Ex-smoker [facility] Phone: History of tobacco use Cigarette Smoker [facility] Phone: Start: 03-28-2017 End: 01-29-2024 Cigarettes smoked current (pack per day) - Reported 1 [facility] Phone: Start: 03-28-2017 End: 06-20-2023 Tobacco use and exposure Smokeless tobacco non-user [facility] Phone: Start: 12-07-2021 Alcohol intake Ex-drinker (finding) [facility] Phone: Start: 1990 Sex Assigned At Not on file [facility] Phone: Start: 11-27-2021 End: 12-07-2021 Exposure to SARS-CoV-2 (event) Not sure [facility] Phone: History of tobacco use Current smoker [facility] Start: 01-29-2024 Alcoholic beverage intake Lifetime non-drinker (finding) [facility] Start: 01-29-2024 Tobacco use panel [facility] Start: 05-21-2023 Alcohol Comment caffeine: 1-2 cups per day [facility] Start: 12-23-2023 [facility] Clinical Notes 12-10-2021 to 08-06-2024 Maulik Del Toro, [facility] - 08/06/2024 11:30 AM Kyler Del Toro, [facility] - 07/23/2024 10:00 AM Princess Mann ID - 06/25/2024 10:30 AM Kyler Del Toro, [facility] - 06/25/2024 10:30 AM ESTInstructions Note [...] visit. documented in this encounter [facility] 07-23-2024 History of Present illness Narrative Subjective [...] visit. documented in this encounter [facility] 06-25-2024 History of Present illness Narrative Subjective [...] visit. documented in this encounter [facility] 06-17-2024 Telephone encounter Note Licha arciniega needs lab result that has her blood type on it and Demo sheet faxed to [phone] [facility] 06-17-2024 Miscellaneous Notes Licha arciniega needs lab result that has her blood type on it and Demo sheet faxed to [phone] documented in this encounter [facility] 05-21-2024 History of Present illness Narrative Subjective [...] visit. documented in this encounter [facility] 04-23-2024 History of Present illness Narrative Subjective [...] visit. documented in this encounter [facility] 03-19-2024 History of Present illness Narrative Subjective [...] visit. documented in this encounter [facility] 12-10-2021 Hospital Discharge instructions Lorin Arias RN - 12/10/2021 Follow-up with your OB doctor as specified. [facility] OB Department phone: Chikis Del Toro, MSN, ROLLING MACHINE TENDER, CNM [facility] [phone] [facility] [id number] DIET Eat a well balanced diet focusing on foods high in fiber and protein. Drink plenty of fluids especially water. To avoid constipation you may take a mild stool softener as recommended by your doctor or rigger up. ACTIVITY Gradually increase your activity. Resume exercise regimen only after advice by your doctor or rigger up. Avoid lifting anything heavier than a gallon of milk for SIX weeks. Avoid driving until your doctor or rigger up has given their approval. Rise slowly from [...] medications as recommended by your doctor or rigger up for pain If you develop a warm, [...] vitamins as directed by your doctor or rigger up. Refer to the booklet in the folder/binder for more information. If you feel you need more assistance or have questions, please call Vibha Crump IBCLC, cardiology clinical consultant, at or the OB department to [...] they become loose or soiled. If used, Lee should be removed by your care provider. [...] this encounter [facility] [employer] Phone: 12-10-2021 History of Present illness [...] provide urine sample. documented in this encounter [facility] Phone: Evaluation note Diagnosis Uterine contractions- Primary Third trimester Term intolerance to labor, delivered, current hospitalization Abnormality in heart rate/rhythm, delivered, with or without mention of antepartum condition delivery delivered delivery, without mention of indication, delivered, with or without mention of antepartum condition documented in this encounter [facility] Phone: evaluation note* Diagnosis Encounter for supervision [...] FoundDocuments on File Type Date Recorded Patient [place] Chief Expl anation ACP-Advance Directive ACP-Power of Newspaper Peddler Latest Code Status on File Code Status Date Activated Date Inactivated Comments Full Code 12/07/2021 11:34 PM Full Code 12/07/2021 5:30 AM 12/07/2021 11:33 PM Additional Source Comments INFORMATION SOURCE (unrecogn ized section and content) DATE CREATED AUTHOR 01/08/2018 [facility] DATE CREATED AUTHOR AUTHOR'S ORGANIZ ATION 12/02/2021 [facility] DATE CREATED AUTHOR AUTHOR'S ORGANIZ ATION 12/08/2021 [facility] DATE CREATED AUTHOR AUTHOR'S ORGANIZ ATION 01/15/2022 [facility] DATE CREATED AUTHOR AUTHOR'S ORGANIZ ATION 08/08/2024 [facility] EPIC Reason for Visit (unrecogniz ed section and content) Reason Comments Contractions Specialty Diagnoses / Procedures Referred By Contac t Referred To Contact Diagnoses Uterine contractions Term intolerance to labor, delivered, current hospitalization Rodo Shaw, ROLLING MACHINE TENDER - CNM [address] [place] [address] [facility] [id number] [place] [address] Referral ID Status Reason Start Date Expiration Date Visits Re quested Visits Authorized [id number] 1 1 Ordered Prescriptions (unrec ognized section [...] RN) 2099 (Due - Provider: Kaushik Lindsey [facility]) 2099 (Due - Provider: Kaushik Lindsey RPH) [...] (Due) 0900 (Due)2100 (Due) 0900 (Due)2100 (Due) lamjrcq-zquqql-nnhld pertussis (BOOSTRIX) injection 0.5 mL 0.5 mL, [...] BE BASED ON THE PRIMARY CLINICAL RECORDS. [facility] [employer] provides no warranty or guarantee of the accuracy or completeness of information in this document.
[2024-08-13 09:38] VITALS: BP 111/66; PULSE 108
[2024-08-13 09:59] VITALS: BP 94/52; PULSE 78
== END 2024-08-13 10:31 | disposition home or self-care (01) ==
LOC: US 04:58 → FBC 09:08
PROVIDERS: Visit Provider Obstetrics & Gynecology
DX: O26.893 Other specified pregnancy related conditions, third trimester (principal); Z3A.35 35 weeks gestation of pregnancy
CPT/HCPCS: 76818

== ENCOUNTER 2024-08-16 03:25 | Outpatient (OUT) | payer OTHER, SELFPAY ==
--- OUTSIDE RECORDS SUMMARY | 2024-08-16 03:29 | XMS_ITS | CCD ---
Author Organization [facility] Care Team Providers Care Transit Department Clerk Name Role Phone SONU GONZALEZ Unavailable [...] Propensity to adverse reactions to substance 12-07-2021 [facility] Medications Current Medications Medication Drug [...] Active docusate sodium 50 mg / sennosides, [facility] 8.6 mg oral tablet (1 source) Start: [...] 05-21-2024 Chronic Other and delivery including normal (18 sources) Third trimester ; Translations: [Encounter for [...] Name Value Interpretation Reference Range Facility US OB BPP W NON-STRESS on 08-13-2024 [place] [address] Ultrasound Report Signed Patient: ALTON DAVIS MR#: [id number] : 1990 Acct:[id number] Age/Sex: 34 / F ADM Date: 08/13/24 Loc: [facility] 258-[address]: Narayan Martinez D.O. Ordering Physician: Narayan Martinez D.O. Date of Service: 08/13/24 Procedure(s): US OB BPP w non-stress Accession Number(s): [id number] cc: MAULIK DEL TORO APRN, CHAN; Narayan Martinez D.O. [place] [address] Patient Name: ALTON DAVIS MRN: [id number] date: 1990 Sex: F Assigned Patient Location: [facility] Current Patient Location: [facility] Accession/Order Number: [id number] Exam Date: 08/13/2024 09:15 Report Date: 08/13/2024 09:44 At the request of: NARAYAN MARTINEZ Procedure: US OB BPP w non-stress EXAMINATION: US OB BPP w non-stress HISTORY:PRE-TERM LABOR COMPARISON: Ultrasound OB biophysical 08/06/2024 TECHNIQUE: Ultrasound biophysical profile was performed in the radiology department. BREATHING MOVEMENTS: 2 GROSS BODY MOVEMENTS: 2 TONE: 2 QUALITATIVE AMNIOTIC FLUID VOLUME: 2 PRESENTATION: CEPHALIC HEART RATE: 158.82 bpm AMNIOTIC FLUID VOLUME: 12.12 cm GESTATIONAL AGE: 35 weeks 3 days US/US OB BPP w non-stress IMPRESSION: 1. Total biophysical profile score: 8 Electronically authenticated by: DEN VASQUEZ Date: 08/13/2024 09:44 Dictated By: Den Vasquez M.D. Signed By: 08/13/2446 DD/ 3 TD/TT: Rail Car Repairman: [facility] Radiology, Latiaognorm gary MD - 08/13/2024 [place] [address] Ultrasound Report Signed Patient: ALTON DAVIS MR#: [id number] : 1990 Acct:[id number] Age/Sex: 34 / F ADM Date: 08/13/24 Loc: [facility] 258-[address]: Narayan Martinez D.O. Ordering Physician: Narayan Martinez D.O. Date of Service: 08/13/24 Procedure(s): US OB BPP w non-stress Accession Number(s): [id number] cc: MAULIK DEL TORO APRN, CNM; Narayan Martinez D.O. The [place] [address] Patient Name: ALTON DAVIS MRN: [facility]:[id number] date: 1990 Sex: F Assigned Patient Location: [facility] Current Patient Location: [facility] Accession/Order Number: [id number] Exam Date: 08/13/2024 09:15 Report Date: 08/13/2024 09:44 At the request of: NARAYAN MARTINEZ Procedure: US OB BPP w non-stress EXAMINATION: US OB BPP w non-stress HISTORY:PRE-TERM LABOR COMPARISON: Ultrasound OB biophysical 08/06/2024 TECHNIQUE: Ultrasound biophysical profile was performed in the radiology department. BREATHING MOVEMENTS: 2 GROSS BODY MOVEMENTS: 2 TONE: 2 QUALITATIVE AMNIOTIC FLUID VOLUME: 2 PRESENTATION: CEPHALIC HEART RATE: 158.82 bpm AMNIOTIC FLUID VOLUME: 12.12 cm GESTATIONAL AGE: 35 weeks 3 days US/US OB BPP w non-stress IMPRESSION: 1. Total biophysical profile score: 8 Electronically authenticated by: DEN VASQUEZ Date: 08/13/2024 09:44 Dictated By: Den Vasquez M.D. Signed By: 08/13/24945 DD/ 3 TD/TT: Rail Car Repairman: [facility] Radiology Study observation (narrative) [facility] US OB BPP W NON-STRESS Ordered By: Radiologist Radiology on 08-13-2024 [facility] Work Phone: ALL CBC WITH AUTO DIFFon BASOPHILS ABSOLUTE AUTO 0 [facility] Basophils/100 WBC (Bld) 0.2 % 0.2 - 2.0 % [facility] Eosinophils/100 WBC (Bld) 0.2 % Low 0.9 - 7.0 % [facility] Erythrocyte distribution width (RBC) [Ratio] 12.6 % 11.0 - 15.0 % [facility] Hematocrit (Bld) [Volume fraction] 33.1 % Low 36.0 - 48.0 % [facility] Hemoglobin (Bld) [Mass/Vol] 11.1 g/dL Low 12.0 - 16.0 g/dL [facility] IMMATURE GRANULOCYTES ABS AUTO 0.16 High [facility] Immature granulocytes/100 WBC (Bld) 1.1 % High 0.0 - 0.5 % [facility] Interpretation and review of laboratory results Abnormal [facility] LYMPHOCYTES ABSOLUTE AUTO 1.5 [facility] Lymphocytes/100 WBC (Bld) 10.3 % Low 20.5 - 60.0 % [facility] MCH (RBC) [Entitic mass] 30.6 pg 26.7 - 34.0 pg [facility] MCHC (RBC) [Mass/Vol] 33.5 g/dL 29.9 - 35.2 g/dL [facility] MCV (RBC) [Entitic vol] 91.2 fL 81.0 - 99.0 fL [facility] MONOCYTES ABSOLUTE AUTO 0.9 High [facility] Monocytes/100 WBC (Bld) 6.3 % 1.7 - 12.0 % [facility] NEUTROPHILS ABSOLUTE AUTO 11.8 High [facility] Neutrophils/100 WBC (Bld) 81.9 % High 43.0 - 75.0 % [facility] Platelet mean volume (Bld) [Entitic vol] 10.2 fL 9.5 - 13.5 fL [facility] TBH EO # 0 [facility] TBH PLT 224 [facility] TB RBC 3.63 Low [facility] TB WBC 14.4 High [facility] US for pregnancyon TITLE OF EXAM: [...] report is generated using voice recognition reporting ([employer]). On occasion PowerScribe erroneously drops words from [...] report is generated using voice recognition reporting ([employer]). On occasion PowerScribe erroneously drops words from the report or replaces the spoken word with similar sounding words. Please call with any questions/concerns regarding this report.* Dictated and transcribed 06/05/24dpd This report has been electronically signed and approved by the interpreting radiologist. [facility] US for pregnancyOrdered By: Yordan Duran on 06-06-2024 [facility] Work Phone: OB LIMITED 1+ FETUSESon 1 [...] report is generated using voice recognition reporting ([employer]). On occasion Onavocribe erroneously drops words from the report or replaces the spoken word with similar sounding words. Please call with any questions/concerns regarding this report.* Dictated and transcribed 06/05/24/dpd This report has been electronically signed and approved by the interpreting radiologist. Normal Not Available US for pregnancyon Radiology Study observation (narrative) [facility] OB 14+ WEEKS ANATOMY SCAN on [...] 2.8 cm. Yolk sac diameter 0.3 cm. [place] rump length is 1.5 cm. heart rate [...] SURGICAL PATHOLOGY CONSULTATION Patient Name: ALTON DAVIS [facility] Rec: [id number] Path Number: [id number] [facility] ANATOMIC PATHOLOGY [address] [place] [address]. [place], [place] [id number] [facility] BIOPHYSICAL PROFILE WO NON STRESS TESTINGon [...] Ajit Warner MD 12/09/21 Final result Normal [facility] Biophysical profile score 8/8. KUNAL 7.1. The findings were sent to the Radiology Results Communication Center at 10:15 am on 12/07/2021 to be communicated to a licensed caregiver. [facility] CONSOLIDATED EXAMINATION: BIOPHYSICAL PROFILE WITHOUT NON-STRESS [...] fluid index 7.1 with MVP 2.8 cm. [facility] Ajit West MD - 12/09/2021 EXAMINATION: BIOPHYSICAL [...] to be communicated to a licensed caregiver. [employer] Phone: BIOPHYSICAL PROFILE WO NON STRESS TESTINGOrdered By: Ajit Warner on 12-09-2021 [employer] Phone: CBCon 12-08-2021 Erythrocyte distribution width (RBC) [Ratio] 14.3 % Normal 11.8-14.4 [facility] Comment on above: Performed By: #### C BC #### [facility] [address] [place] [address] [place] [address] Desk Clerk: Mohamud Lucas MD Hematocrit (Bld) [Volume fraction] 26.3 % Low 36.3-47.1 [facility] Comment on above: Performed By: #### C BC #### [facility] [address] [place] [address] Desk Clerk: Mohamud Lucas MD Hemoglobin (Bld) [Mass/Vol] 8.5 g/dL Low 11.9-15.1 [facility] Comment on above: Performed By: #### C BC #### [facility] [address] [place] [address] Desk Clerk: Mohamud Lucas MD MCH (RBC) [Entitic mass] 27.0 pg Normal 25.2-33.5 [facility] Comment on above: Performed By: #### C BC #### [facility] [address] [place], [place] [phone] Desk Clerk: Mohamud Lucas MD MCHC (RBC) [Mass/Vol] 32.3 g/dL Normal 28.4-34.8 [facility] Comment on above: Performed By: #### C BC #### [facility] [address] [place], [place] [phone] Desk Clerk: Mohamud Lucas MD MCV (RBC) [Entitic vol] 83.5 fL Normal 82.6-102.9 [facility] Comment on above: Performed By: #### C BC #### [address] [place], [place] [phone] Desk Clerk: Mohamud Lucas MD NRBC Automated 0.0 per 100 WBC Normal 0.0 [facility] Comment on above: Performed By: #### C BC #### [address] [place], [place] [phone] Desk Clerk: Mohamud Lucas MD Platelet mean volume (Bld) [Entitic vol] 11.1 fL Normal 8.1-13.5 [facility] Comment on above: Performed By: #### C BC #### [facility] [address] [place] [address] [place] [address] Desk Clerk: Mohamud Lucas MD Platelets (Bld) [#/Vol] 219 10*3/uL Normal 138-453 [facility] Comment on above: Performed By: #### C BC #### [address] [place] [address] Desk Clerk: Mohamud Lucas MD RBC (Bld) [#/Vol] 3.15 10*6/uL Low 3.95-5.11 [facility] Comment on above: Performed By: #### C BC #### [facility] [address] [place] [address] Desk Clerk: Mohamud Lucas MD WBC (Bld) [#/Vol] 20.6 10*3/uL High 3.5-11.3 [facility] Comment on above: Performed By: #### C BC #### [facility] [address] [place] [address] Desk Clerk: Mohamud Lucas MD Hematocrit (Bld) [Volume fraction] 26.3 % Low 36.3 - 47.1 % [facility] Hemoglobin.gastroin testinal spec 1 Ql (Stl) 8.5 g/dL Low 11.9 - 15.1 g/dL [facility] Interpretation and review of laboratory results Abnormal [facility] MCH (RBC) [Entitic mass] 27.0 pg 25.2 - 33.5 pg [facility] MCHC (RBC) [Mass/Vol] 32.3 g/dL 28.4 - 34.8 g/dL [facility] MCV (RBC) [Entitic vol] 83.5 fL 82.6 - 102.9 fL [facility] NRBC Automated 0.0 0.0 per 100 WBC [facility] Platelet distribution width (Bld) [Ratio] 14.3 % 11.8 - 14.4 % [facility] Platelet mean volume (Bld) [Entitic vol] 11.1 fL 8.1 - 13.5 fL [facility] Platelets (Bld) [#/Vol] 219 10*3/uL [facility] RBC (Bld) [#/Vol] 3.15 10*6/uL Low 3.95 - 5.1 1 m/uL [facility] WBC (Bld) [#/Vol] 20.6 10*3/uL High [facility] RhIg Workup (RhoGam)on 12-08 RhIg Workup (RhoGam) Blood Component Type MANUFACTURED PRODUCT Units Ordered 1 ABO/Rh(D) A NEGATIVE Antibody Screen NEGATIVE History Check NO PREVIOUS HISTORY Rhig Eligibility Patient Is A Candidate For Injection Eugenie NEGATIVE Du Antigen NOT TESTED Unit Number [id number] Blood Component Type RHIG Unit Division 00 Status of Unit REL FROM ALLOC Transfusion Status OK TO TRANSFUSE Normal [facility] Comment on above: Performed By: #### R HIGW #### [facility] [address] [place] [address] Desk Clerk: Mohamud Lucas MD CBC auto differentialon 2 Absolute Eos # 0.08 [facility] Absolute Immature Granulocyte 0.08 [facility] Absolute Lymph # 1.81 [facility] Absolute [place] # 0.88 [facility] Basophils (Bld) [#/Vol] 0.04 10*3/uL [facility] Basophils/100 WBC (Bld) 0 % 0 - 2 % [facility] Eosinophils/100 WBC (Bld) 1 % 1 - 4 % [facility] Hematocrit (Bld) [Volume fraction] 32.8 % Low 36.3 - 47.1 % [facility] Hemoglobin.gastroin testinal spec 1 Ql (Stl) 10.3 g/dL Low 11.9 - 15.1 g/dL [facility] Immature granulocytes/100 WBC (Bld) 1 % High 0 [facility] Interpretation and review of laboratory results Abnormal [facility] Lymphocytes/100 WBC (Bld) 15 % Low 24 - 43 % [facility] MCH (RBC) [Entitic mass] 26.5 pg 25.2 - 33.5 pg [facility] MCHC (RBC) [Mass/Vol] 31.4 g/dL 28.4 - 34.8 g/dL [facility] MCV (RBC) [Entitic vol] 84.5 fL 82.6 - 102.9 fL [facility] Monocytes/100 WBC (Bld) 7 % 3 - 12 % [facility] NRBC Automated 0.0 0.0 per 100 WBC [facility] Platelet distribution width (Bld) [Ratio] 14.2 % 11.8 - 14.4 % [facility] Platelet mean volume (Bld) [Entitic vol] 11.9 fL 8.1 - 13.5 fL [facility] Platelets (Bld) [#/Vol] 259 10*3/uL [facility] RBC (Bld) [#/Vol] 3.88 10*6/uL Low 3.95 - 5.1 1 m/uL [facility] Segmented neutrophils/100 WBC (Bld) 76 % High 36 - 65 % [facility] Segs Absolute 9.01 High [facility] WBC (Bld) [#/Vol] 11.9 10*3/uL High [facility]NOTE 2] CBC with Diffon 12-07-2021 Abs. Basophil 0.04 k/uL Normal 0.00-0.20 [facility] Comment on above: Performed By: #### C DP #### [facility] [address] [place] [address] Dr. [place], [facility] Desk Clerk: Mohamud Lucas MD Abs.Imm.Granulocyte 0.08 k/uL Normal 0.00-0.30 [facility] Comment on above: Performed By: #### C DP #### [address] [place], [facility] Desk Clerk: Mohamud Lucas MD Abs.Neutrophil (Seg) 9.01 k/uL High 1.50-8.10 [facility] Comment on above: Performed By: #### C DP #### [address] [place], [place] [phone] Desk Clerk: Mohamud Lucas MD Basophils/100 WBC (Bld) 0 % Normal 0-2 [facility] Comment on above: Performed By: #### C DP #### [address] [place], [place] [phone] Desk Clerk: Mohamud Lucas MD Eosinophils (Bld) [#/Vol] 0.08 10*3/uL Normal 0.00-0.44 [facility] Comment on above: Performed By: #### C DP #### [facility] [address] [place], [facility] Desk Clerk: Mohamud Lucas MD Eosinophils/100 WBC (Bld) 1 % Normal 1-4 [facility] Comment on above: Performed By: #### C DP #### [facility] [address] [place], [place] [address] Desk Clerk: Mohamud Lucas MD Erythrocyte distribution width (RBC) [Ratio] 14.2 % Normal 11.8-14.4 [facility] Comment on above: Performed By: #### C DP #### [address] [place] [id number] Desk Clerk: Mohamud Lucas MD Hematocrit (Bld) [Volume fraction] 32.8 % Low 36.3-47.1 [facility] Comment on above: Performed By: #### C DP #### [address] [place], [place] [address] Desk Clerk: Mohamud Lucas MD Hemoglobin (Bld) [Mass/Vol] 10.3 g/dL Low 11.9-15.1 [facility] Comment on above: Performed By: #### C DP #### [address] [place], [place] [address] Desk Clerk: Mohamud Lucas MD Immature granulocytes/100 WBC (Bld) 1 % High 0 [facility] Comment on above: Performed By: #### C DP #### [facility] [address] [place] [address] Dr. [place], [facility]83 Desk Clerk: Mohamud Lucas MD Lymphocytes (Bld) [#/Vol] 1.81 10*3/uL Normal 1.10-3.70 [facility] Comment on above: Performed By: #### C DP #### [facility] [address] [place], [facility] Desk Clerk: Mohamud Lucas MD Lymphocytes/100 WBC (Bld) 15 % Low 24-43 [facility] Comment on above: Performed By: #### C DP #### [facility] [address] [place], [place] 8049483 Desk Clerk: Mohamud Lucas MD MCH (RBC) [Entitic mass] 26.5 pg Normal 25.2-33.5 [facility] Comment on above: Performed By: #### C DP #### [facility] [address] [place] [address] Dr. [place], [place] [phone] Desk Clerk: Mohamud Lucas MD MCHC (RBC) [Mass/Vol] 31.4 g/dL Normal 28.4-34.8 [facility] Comment on above: Performed By: #### C DP #### [facility] [address] [place] [address] Dr. [place], [facility]83 Desk Clerk: Mohamud Lucas MD MCV (RBC) [Entitic vol] 84.5 fL Normal 82.6-102.9 [facility] Comment on above: Performed By: #### C DP #### [facility] [address] [place] [address] Dr. [place], [place] 935[address]83 Desk Clerk: Mohamud Lucas MD Monocytes (Bld) [#/Vol] 0.88 10*3/uL Normal 0.10-1.20 [facility] Comment on above: Performed By: #### C DP #### [facility] [address] [place] [address] Dr. [place], [place] [phone] Desk Clerk: Mohamud Lucas MD Monocytes/100 WBC (Bld) 7 % Normal 3-12 [facility] Comment on above: Performed By: #### C DP #### [facility] [address] [place] [address] Dr. [place], [place] [phone] Desk Clerk: Mohamud Lucas MD Neutrophil (Seg) 76 % High 36-65 [facility] Comment on above: Performed By: #### C DP #### [facility] [address] [place], [place] 8254383 Desk Clerk: Mohamud Lucas MD NRBC Automated 0.0 per 100 WBC Normal 0.0 [facility] Comment on above: Performed By: #### C DP #### [facility] [address] [place], [place] [address]807[address] Desk Clerk: Mohamud Lucas MD Platelet mean volume (Bld) [Entitic vol] 11.9 fL Normal 8.1-13.5 [facility] Comment on above: Performed By: #### C DP #### [facility] [address] [place], [place] 1213683 Desk Clerk: Mohamud Lucas MD Platelets (Bld) [#/Vol] 259 10*3/uL Normal 138-453 [facility] Comment on above: Performed By: #### C DP #### [facility] [address] [place], [place] [phone] Desk Clerk: Mohamud Lucas MD RBC (Bld) [#/Vol] 3.88 10*6/uL Low 3.95-5.11 [facility] Comment on above: Performed By: #### C DP #### [facility] [address] [place], [place] [phone] Desk Clerk: Mohamud Lucas MD WBC (Bld) [#/Vol] 11.9 10*3/uL High 3.5-11.3 [facility] Comment on above: Performed By: #### C DP #### [facility] [address] [place] [address] Desk Clerk: Mohamud Lucas MD DRUG SCREEN MULTI URINEon Amphetamine Screen, Ur Negative NEGATIVE [facility] Barbiturate Screen, Ur Negative NEGATIVE [facility] Benzodiazepine Screen, Urine Negative NEGATIVE [facility] Buprenorphine Urine Negative NEGATIVE [facility] Cannabinoid Scrn, Ur Negative NEGATIVE [facility] Cocaine Metabolite, Urine Negative NEGATIVE [facility] Methadone Screen, Urine Negative NEGATIVE [facility] Methamphetamine, Urine Negative NEGATIVE [facility] Opiates, Urine Negative NEGATIVE [facility] Oxycodone Screen, Ur Negative NEGATIVE [facility] Phencyclidine, Urine Negative NEGATIVE [facility] Propoxyphene, Urine Negative NEGATIVE [facility] Tricyclic Antidepressants, Urine Negative NEGATIVE [facility] Comment on above: Drug screen results are to be used for medical purposes only. All positive results are unconfirmed. Testing for employment or legal uses should be sent to a reference laboratory for confirmation. [facility] Drug Scr, Abuse, Uron 2021 Amphetamine(s),Ur Negative Normal NEG [facility] Comment on above: Performed By: #### D AU #### [facility] [address] [place] [address] Dr[place] [phone] Desk Clerk: Mohamud Lucas MD Barbiturate(s),Ur Negative Normal NEG [facility] Comment on above: Performed By: #### D AU #### [address] [place] [phone] Desk Clerk: Mohamud Lucas MD Benzodiazepine(s) Negative Normal NEG [facility] Comment on above: Performed By: #### D AU #### [facility] [address] [place] [address] Dr. [place] [phone] Desk Clerk: Mohamud Lcuas MD Buprenorphrine, Ur Negative Normal NEG [facility] Comment on above: Performed By: #### D AU #### [address] [place] [phone] Desk Clerk: Mohamud uLcas MD Cannabinoid(s),Ur Negative Normal NEG [facility] Comment on above: Performed By: #### D AU #### [address] [place] [address] Desk Clerk: Mohamud Lucas MD Cocaine Metabolite Negative Normal NEG [facility] Comment on above: Performed By: #### D AU #### [facility] [address] [place], [place] [phone] Desk Clerk: Mohamud Lucas MD Methadone Ql (U) Negative Normal [facility] Comment on above: Performed By: #### D AU #### [facility] [address] [place], [place] [phone] Desk Clerk: Mohamud Lucas MD Methamphetamine, Ur Negative Normal NEG [facility] Comment on above: Performed By: #### D AU #### [facility] [address] [place] [address] Dr. [place], [place] 0255483 Desk Clerk: Mohamud Lucas MD Opiate(s), Ur Negative Normal NEG [facility] Comment on above: Performed By: #### D AU #### [facility] [address] [place], [place] 9786583 Desk Clerk: Mohamud Lucas MD Oxycodone, Urine Negative Normal [facility] Comment on above: Performed By: #### D AU #### [facility] [address] [place] [address] Dr. [place], [place] [phone] Desk Clerk: Mohamud Lucas MD Phencyclidine, Ur Negative Normal NEG [facility] Comment on above: Performed By: #### D AU #### [facility] [address] [place] [address] [place] [address] Desk Clerk: Mohamud Lucas MD Propoxyphene,Urine Negative Normal NEG [facility] Comment on above: Performed By: #### D AU #### [facility] [address] [place], [place] [phone] Desk Clerk: Mohamud Lucas MD Tricyclic antidepressants Screen Ql (U) Negative Normal [facility] Comment on above: Result Comment: Drug screen results are to be used for medical purposes only. All positive results are unconfirmed. Testing for employment or legal uses should be sent to a reference laboratory for confirmation. Performed By: #### D AU #### [address] [place] [address] Desk Clerk: Mohamud Lucas MD Microscopic Urinalysison - [facility] Bacteria, UA 2+ Abnormal None [facility] Epithelial Cells UA 2 TO 5 [facility] Interpretation and review of laboratory results Abnormal [facility] RBC, UA 0 TO 2 [facility] WBC, UA 2 TO 5 [facility] Yeast, UA PRESENCE NOTED Abnormal None [facility]NOTE 2] OPERATIVE REPORTon OPERATIVE REPORT [address] [address] OPERATIVE REPORT PATIENT NAME: ALTON DAVIS : 1990 MED REC NO: [id number] ROOM: [id number] ACCOUNT NO: [id number] ADMIT DATE: 12/07/2021 PROVIDER: Matt Light MD [...] section, low transverse uterine segment. ANESTHESIA: Epidural. QUALITY ASSURANCE ASSISTANT: Maulik Del Toro. 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 head was elevated and turned. [...] a running imbricating interlocking fashion. A few fnwmot-[id number] sutures were placed along the central inferior [...] were mentioned. MATT LIGHT MD [id number] Doc#: [id number] CC: Maulik Del Toro [facility] Surgical Pathologyon 022 Surgical Pathology (NOTE) -- [...] SURGICAL PATHOLOGY CONSULTATION Patient Name: ALTON DAVIS [facility] Rec: [id number] Path Number: [id number] [employer] [facility] ANATOMIC PATHOLOGY [address] [place] [phone] [facility] Comment on above: Performed By: #### P PPVS #### [employer] [address] [place] [address] Desk Clerk: Dhaval Rao MD BIOPHYSICAL PROFILE WO NON STRESS TESTINGon 12-07-2021 Radiology Study observation (narrative) [facility] [employer] Work Phone: Urinalysison 12-07-2021 Bilirubin Urine Negative NEGATIVE [facility] Color, UA Yellow Yellow [facility] Glucose, Ur Negative NEGATIVE [facility] Interpretation and review of laboratory results Abnormal [facility] Ketones Ql (U) Negative NEGATIVE [facility] Leukocyte esterase Test strip Ql (U) Negative NEGATIVE [facility] Nitrite, Urine Negative NEGATIVE [facility] pH, UA 6.0 [facility] Protein, UA Negative NEGATIVE [facility] Specific [place], UA >1.030 High [facility] Turbidity UA Clear Clear [facility] Urine Hgb 1+ Abnormal NEGATIVE [facility] Urobilinogen, Urine Normal Normal [facility] Urinalysis, Routineon 2021 Bilirubin, SemiQt,Ur Negative Normal NEG [facility] Comment on above: Performed By: #### U MICAO, UA #### [facility] [address] [place] [address] Dr. Zepeda, [facility] Desk Clerk: Mohamud Lucas MD Blood, Urine 1+ Abnormal NEG [facility] Comment on above: Performed By: #### U MICAO, UA #### [address] Zepeda, [facility] Desk Clerk: Mohamud Lucas MD Clarity (U) Clear Normal CLEAR [facility] Comment on above: Performed By: #### U MICAO, UA #### [facility] [address] [place] [address] Dr. Zepeda, [facility] Desk Clerk: Mohamud Lucas MD Color (U) Yellow Normal YEL [facility] Comment on above: Performed By: #### U MICAO, UA #### [address] Zepeda, [facility] Desk Clerk: Mohamud Lucas MD Glucose Ql (U) Negative Normal NEG [facility] Comment on above: Performed By: #### U MICAO, UA #### [facility] [address] [place] [address] Dr. Zepeda, [place] [phone] Desk Clerk: Mohamud Lucas MD Ketones Ql (U) Negative Normal NEG [facility] Comment on above: Performed By: #### U MICAO, UA #### [facility] [address] [place] [address] Dr. Zepeda, [place] [id number] Desk Clerk: Mohamud Lucas MD Leukocyte esterase Test strip Ql (U) Negative Normal NEG [facility] Comment on above: Performed By: #### U MICAO, UA #### [facility] [address] [place] [address] Dr. Zepeda, [place] [id number] Desk Clerk: Mohamud Lucas MD Nitrite,Ur Negative Normal NEG [facility] Comment on above: Performed By: #### U MICAO, UA #### [address] Zepeda, [place] [id number] Desk Clerk: Mohamud Lucas MD PH,Ur 6.0 Normal 5.0-9.0 [facility] Comment on above: Performed By: #### U MICAO, UA #### [address] Zepeda, [place] [phone] Desk Clerk: Mohamud Lucas MD Protein Ql (U) Negative Normal NEG [facility] Comment on above: Performed By: #### U MICAO, UA #### [facility] [address] [place] [address] Dr. Zepeda, [place] [phone] Desk Clerk: Mohamud Lucas MD Spec. [place],Ur >1.030 High 1.010-1.020 [facility] Comment on above: Performed By: #### U MICAO, UA #### [facility] [address] [place] [address] Dr. Zepeda, [place] [phone] Desk Clerk: Mohamud Lucas MD Urobilinogen,Ur Normal Normal NORM [facility] Comment on above: Performed By: #### U MICAO, UA #### [facility] [address] [place] [address] [place] [address] Desk Clerk: Mohamud Lucas MD Urinalysis,Microon 2 ----- Normal [facility] Comment on above: Performed By: #### U MICAO, UA #### [facility] [address] [place] [address] Desk Clerk: Mohamud Lucas MD Bacteria 2+ Abnormal NONE [facility] Comment on above: Performed By: #### U MICAO, UA #### [facility] [address] [place] [address] [place] [address] Desk Clerk: Mohamud Lucas MD Epithelial cells LM Ql (Urine sed) 2 TO 5 Normal 0-25 [facility] Comment on above: Performed By: #### U SHAHNAZO, UA #### [facility] [address] [place] [address] [place] [address] Desk Clerk: Mohamud Lucas MD Urine RBC's 0 TO 2 Normal 0-2 [facility] Comment on above: Performed By: #### U SHAHNAZO, UA #### [facility] [address] [place] [address] [place] [address] Desk Clerk: Mohamud Lucas MD Urine WBC's 2 TO 5 Normal 0-5 [facility] Comment on above: Performed By: #### U SHAHNAZO, UA #### [facility] [address] [place] [address] [place] [address] Desk Clerk: Mohamud Lucas MD Yeast PRESENCE NOTED Abnormal NONE [facility] Comment on above: Performed By: #### U SHAHNAZO, UA #### [facility] [address] [place] [address] [place] [address] Desk Clerk: Mohamud Lucas MD US OB Growthon [...] by Param Garnett on 11/30/2021 0718 Normal [facility] In Service Educator GBS, External Resulton 11-10 GBS, External Result Positive [employer] Phone: [employer] Phone: Q - STREPTOCOCCUS,GROUP B CU LTUREon 11-10-2021 STREPTOCOCCUS, GROUP B CULTURE SEE NOTE Abnormal [facility] In Service Educator Comment on above: Order Comment: [facility] performed at: [employer] [facility], [address] [place] [address], [address] [place] [address], [id number], Jet Engine Mechanic: David Whalen MD [facility] Collection Date/Time: [id number] [facility] Results Received Date/Time: [id number] [facility] Reported Date/Time: [id number] Result Comment: STRE PTOCOCCUS, GROUP B CULTURE Micro Number: [id number] Test Status: Final Specimen Source: Vaginal/anorectal Specimen [...] 5 [id number] #### [facility] [address] [place] [address] US OB Growthon 10-03-2021 US OB Growth [...] Anterior fundal Grade I Weight (g) by Numgoaxjee45.5 % * These measurements result in an [...] by Param Garnett on 10/04/2021 0920 Normal [facility] In Service Educator No Panel Informationon 09-22 ABO, External Result Negative [employer] Work Phone: [employer], External Result Negative [employer] Phone: [employer] Work Phone: Rhogam, External Resultson 0 09-21-2021 Rhogam, External Result given [employer] Work Phone: [facility] [employer] Phone: Complete Blood Counton 09-20 Erythrocyte distribution width (RBC) [Ratio] 12.5 % Normal 11.0-15.0 [facility] [employer] Educ[employer] Comment on above: Performed By: #### G GLU, CBC #### [facility] [address] [place], [place] [id number] Hematocrit (Bld) [Volume fraction] 32.7 % Low 35.0-47.0 [facility] In [employer] Educ[employer] Comment on above: Performed By: #### G GLU, CBC #### [facility] [address] [place], [place] [id number] Hemoglobin (Bld) [Mass/Vol] 10.7 g/dL Low 11.6-15.5 [facility] In Service Educator Comment on above: Performed By: #### G GLU, CBC #### [facility] [address] [place], [place] [id number] MCH (RBC) [Entitic mass] 30.1 pg Normal 27.0-33.0 [facility] In Service Educator Comment on above: Performed By: #### G GLU, CBC #### [facility] [address] [place], [place] [id number] MCHC (RBC) [Mass/Vol] 32.7 g/dL Normal 32.0-36.0 [facility] In Service Educator Comment on above: Performed By: #### G GLU, CBC #### [facility] [address] [place], [place] [id number] MCV (RBC) [Entitic vol] 92 fL Normal 80-100 [facility] In Service Educator Comment on above: Performed By: #### G GLU, CBC #### [facility] [address] [place], [place] [id number] Platelet mean volume (Bld) [Entitic vol] 10.80 fL Normal 7.50-12.50 [facility] In Service Educator Comment on above: Performed By: #### G GLU, CBC #### [facility] [address] [place], [place] [id number] Platelets (Bld) [#/Vol] 240 10*3/uL Normal 140-400 [facility] In Service Educator Comment on above: Performed By: #### G GLU, CBC #### [facility] [address] [place], [place] [id number] RBC (Bld) [#/Vol] 3.56 10*6/uL Low 3.90-5.20 [facility] Comment on above: Performed By: #### G GLU, CBC #### [facility] [address] [place], [place] [id number] RDW-SD 42.5 fL Normal 37.0-50.0 [facility] Comment on above: Performed By: #### G GLU, CBC #### [facility] [address] [place], [place] [id number] WBC (Bld) [#/Vol] 9.5 10*3/uL Normal 3.8-11.0 [facility] In Service Educator Comment on above: Performed By: #### G GLU, CBC #### [facility] [address] [place], [place] [id number] Glucose - Gestational Screen on 09-20-2021 Glucose [Mass/Vol] 128 mg/dL Normal <135 [facility] Comment on above: Result Comment: A va lue of 135 mg/dL or greater indicates the need for a full glucose tolerance test performed in the fasting state to determine if the patient has gestational diabetes. Performed By: #### G GLU, CBC #### [facility] [address] [place], [place] [id number] US OB Growthon 08-29-2021 US OB Growth [...] by Param Garnett on 09/02/2021 0850 Normal [facility] In Service Educator US OB 2nd/3rd Trimesteron OB 2nd/3rd Trimester [...] 4.7 cm (20 weeks, 2 days) Head Pqpbihkbizous83.5 cm (20 weeks, 0 days) Abdominal Nsogfshxdromt34.2 cm (20 weeks, 3 days) Femur Length [...] by Param Garnett on 09/20/2021 0947 Normal [facility] In Service Educator C. Trachomatis, External Res ulton 10-20-2021 C. Trachomatis, External Result Not detected [employer] Phone: HIV, External Resulton 05-04 HIV, External Result Non-Reactive [employer] Phone: Hepatitis B, External Result on 05-04-2021 Hep B, External Result Non-Reactive [employer] Phone: N. Gonorrhoeae, External Res ulton 05-04-2021 N. Gonorrhoeae, External Result Not detected [employer] Phone: No Panel Informationon 05-04 [employer] Phone: [employer] Phone: RPR, External Labon 05-04-20 RPR, External Result Non-Reactive [employer] Phone: Rubella Titer, External Resu lton 05-04-2021 Rubella Titer, External Result immune [employer] Phone: Cytologyon 06-05-2017 Cytology (NOTE)[id number] Y LABORATORIESCONSULTING PATHOLOGISTS [facility] [id number] [place] [address]. [place] [phone] Fax: GYNECOLOGIC CYTOLOGY REPORTPatient Name: PARMIDNER MASSEY#: [id number] #[id number]:1: Cervical material, (ThinPrep vial, Imaging-assisted review)Clinical HistoryNo LMP date givenContraceptive useR87.615 Unsatisfactory pap of cervixHigh Risk HPV DNA testing is requested if the diagnosis is ASC-USINTERPRETATIONCervi mariama material, (ThinPrep vial, Imaging-assisted review):Specimen Adequacy: Satisfactory for evaluation. - Endocervical/transformati on zone component present.Descriptive Diagnosis: Negative for intraepithelial lesion or malignancy.Shift in aniceto suggestive of bacterial vaginosis.Cytotechnologis t: SZCDC. Deca, CT(ASCP)Electronically Signed Outcd/06/14/2017 Normal [facility] DHEA Sulfateon 04-09-2017 DHEA Sulfate 107.0 ug/dL Normal 65-380 [facility] Comment on above: Result Comment: [facility] [employer] [address] [place] [address] Performed By: #### C YTCGP ####[address] [address] Cortisolon 04-06-2017 Cortisol 10.0 ug/dL Normal [facility] Comment on above: Result Comment: Georges isol Reference Range: AM 6.0-18.4 PM 2.7-10.[address] [address] Performed By: #### G ADILENE, CORTI, INSU, TSHX, PROL, FTST, DHES ####[address] [address] Glucoseon 04-06-2017 Glucose mass conc 83 mg/dL Normal 70-99 [facility] Comment on above: Result Comment: [facility] [employer] [address] [place] [address] Performed By: #### G ADILENE, CORTI, INSU, TSHX, PROL, FTST, DHES ####[address] [address] Insulinon 04-06-2017 Insulin 11.1 mU/L Normal [facility] Comment on above: Performed By: #### G ADILENE, CORTI, INSU, TSHX, PROL, FTST, DHES ####[address] [address] Reference Range Normal [facility] Comment on above: Result Comment: Fast in.6-24.930 min: 20-93154 min: 29-8890 min: 26-77479 min: 22-[address] [place] [address] Performed By: #### G ADILENE, CORTI, INSU, TSHX, PROL, FTST, DHES ####[address] [address] Collection Info. NOT REPORTED Normal [facility] Comment on above: Performed By: #### G ADILENE, CORTI, INSU, TSHX, PROL, FTST, DHES ####[address] [address] Prolactinon 04-06-2017 Prolactin 35.67 ug/L High 4.79-23.30 [facility] Comment on above: Result Comment: The presence of macroprolactin may cause interference in female patients with various endocrinological diseases or during .[facility] [employer] [address] [place] [address] Performed By: #### G ADILENE, CORTI, INSU, TSHX, PROL, FTST, DHES ####[address] [address] TSH w/reflex to FT4on 2016 Thyroid stimulating hormone (TSH) 1.54 m[IU]/L Normal 0.30-5.00 [facility] Comment on above: Result Comment: [facility] [employer] [address] [place] [address] Performed By: #### G ADILENE, CORTI, INSU, TSHX, PROL, FTST, DHES ####[address] [address] Testosterone, Freeon 017 Sex Horm Bind Glob 133 nmol/L Normal 30-135 [facility] Comment on above: Performed By: #### G ADILENE, CORTI, INSU, TSHX, PROL, FTST, DHES ####[address] [address] Testosterone 27 ng/dL Normal 20-70 [facility] Comment on above: Performed By: #### G ADILENE, CORTI, INSU, TSHX, PROL, FTST, DHES ####[facility] [address] [place] [address] Testosterone,Free 1.7 pg/mL Normal 0.8-7.4 [facility] Comment on above: Result Comment: The concentration of free testosterone is derived from a mathematical expression based on the constant for the binding of testosterone to albumin and/or sex hormone binding globulin.[facility] [address] [place] [address] Performed By: #### G ADILENE, CORTI, INSU, TSHX, PROL, FTST, DHES ####[facility] [place] [address] US PELVIS COMPLETEon 017 US PELVIS COMPLETE [...] by:MATT Batresigned by:Ethan Armstrong MD04/06/17Final result Normal [facility] Chlamydia/GC DNA, TPon 03-29 Chlamydia Probe, TP Negative Normal NEG [facility] Comment on above: Result Comment: CHLA MYDIA TRACHOMATIS DNA not detected by nucleic acid amplification. Performed By: #### C YTCGP ####[employer] [id number] [place] [address] Gonorrhea Probe, TP Negative Normal NEG [facility] Comment on above: Result Comment: NEIS SERIA GONORRHOEAE DNA not detected by nucleic acid amplification.[employer] [address] [place] [address] Performed By: #### C YTCGP ####[employer] [place] [address] Cytologyon 03-28-2017 Cytology (NOTE)[id number] Y LABORATORIESCONSULTING PATHOLOGISTS [facility] [id number] [place] [phone] Fax: GYNECOLOGIC CYTOLOGY REPORTPatient Name: PARMINDER MASSEY#: [id number] #[id number]:1: Cervical material, (ThinPrep vial, Imaging-assisted review)Clinical HistoryNo LMP date vpzhhJ55.4 Encounter for screening for malignant neoplasm of cervixHigh Risk HPV DNA testing is requested if the diagnosis is ASC-USINTERPRETATIONCervi mariama material, (ThinPrep vial, Imaging-assisted review):Specimen Adequacy: Unsatisfactory for evaluation.Specimen processed and examined but unsatisfactory for evaluation of epithelial abnormality due to: - Insufficient epithelial cell component, predominantly exudate.Descriptive Diagnosis: Interpretation not possible due to unsatisfactory specimenadequacy.Shift in aniceto suggestive of bacterial vaginosis.Cytotechnologis t: SZMKM. ALFREDA Larry(ASCP)Electronically Signed Outmk/04/04/2017 Normal [facility] Vaginitis DNA Probeon 2016 Vaginitis [...] of vaginitis/vaginosis. Report Status FINAL 03/28/2017 Normal [facility] Comment on above: Performed By: #### V AGDNA ####[facility] [address] [place], [place] [id number] Vital Signs Date Time Vital Sign Value Performing Clinician Facility 08-13-2024 10:52-0500 Body mass index (BMI) [Ratio] 27.46 kg/m2 Maulik Floro CNM Work Phone: [facility] 08-13-2024 10:52-0500 Body weight 74.84 kg Maulik Floro CNM Work Phone: [facility] 08-13-2024 10:52-0500 Diastolic blood pressure 60 mm[Hg] Maulik Floro CNM Work Phone: [facility] 08-13-2024 10:52-0500 Systolic blood pressure 108 mm[Hg] Maulik Floro CNM Work Phone: [facility] 08-06-2024 11:23-0500 Body mass index (BMI) [Ratio] 27.29 kg/m2 Maulik Floro CNM Work Phone: [facility] 08-06-2024 11:23-0500 Body weight 74.39 kg Maulik Floro CNM Work Phone: [facility] 08-06-2024 11:23-0500 Diastolic blood pressure 80 mm[Hg] Maulik Floro CNM Work Phone: [facility] 08-06-2024 11:23-0500 Systolic blood pressure 120 mm[Hg] Maulik Floro CNM Work Phone: [facility] 07-23-2024 10:07-0500 Body mass index (BMI) [Ratio] 27.29 kg/m2 Maulik Floro CNM Work Phone: [facility] 07-23-2024 10:07-0500 Body weight 74.39 kg Maulik Floro CNM Work Phone: [facility] 07-23-2024 10:07-0500 Diastolic blood pressure 80 mm[Hg] Maulik Floro CNM Work Phone: [facility] 07-23-2024 10:07-0500 Systolic blood pressure 120 mm[Hg] Maulik Floro CNM Work Phone: [facility] 06-25-2024 10:32-0500 Body mass index (BMI) [Ratio] 25.79 kg/m2 Maulik Floro CNM Work Phone: [facility] 06-25-2024 10:32-0500 Body weight 70.31 kg Maulik Floro CNM Work Phone: [facility] 06-25-2024 10:32-0500 Diastolic blood pressure 80 mm[Hg] Maulik Floro CNM Work Phone: [facility] 06-25-2024 10:32-0500 Systolic blood pressure 120 mm[Hg] Maulik Floro CNM Work Phone: [facility] 05-21-2024 09:23-0500 Body mass index (BMI) [Ratio] 24.13 kg/m2 Maulik Floro CNM Work Phone: [facility] 05-21-2024 09:23-0500 Body weight 65.77 kg Maulik Floro CNM Work Phone: [facility] 05-21-2024 09:23-0500 Diastolic blood pressure 80 mm[Hg] Maulik Floro CNM Work Phone: [facility] 05-21-2024 09:23-0500 Systolic blood pressure 120 mm[Hg] Maulik Floro CNM Work Phone: [facility] 04-23-2024 09:26-0400 Body mass index (BMI) [Ratio] 22.63 kg/m2 Maulik Floro CNM Work Phone: [facility] 04-23-2024 09:26-0400 Body weight 61.69 kg Maulik Floro CNM Work Phone: [facility] 04-23-2024 09:26-0400 Diastolic blood pressure 70 mm[Hg] Maulik Floro CNM Work Phone: [facility] 04-23-2024 09:26-0400 Systolic blood pressure 112 mm[Hg] Maulik Floro CNM Work Phone: [facility] 03-19-2024 09:31-0400 Body mass index (BMI) [Ratio] 21.8 kg/m2 Maulik Olgao CNM Work Phone: [facility] 03-19-2024 09:31-0400 Body weight 59.42 kg Maulik Olgao CNM Work Phone: [facility] 03-19-2024 09:31-0400 Diastolic blood pressure 72 mm[Hg] Maulik Olgao CNM Work Phone: [facility] 03-19-2024 09:31-0400 Systolic blood pressure 112 mm[Hg] Maulik Olgao CNM Work Phone: [facility] 12-10-2021 07:07-0400 Body temperature 98.1 [degF] Rodo Simmons HOG ROOM SUPERVISOR - CNM Work Phone: [facility] [employer] 12-10-2021 07:07-0400 Diastolic blood pressure 65 mm[Hg] Rodo Simmons APRN - CNM Work Phone: [facility] [employer] 12-10-2021 07:07-0400 Heart rate 81 /min Rodo Simmons APRN - CNM Work Phone: [facility] [employer] 12-10-2021 07:07-0400 Respiratory rate 18 /min Rodo Simmons HOG ROOM SUPERVISOR - CNM Work Phone: [facility] [employer] 12-10-2021 07:07-0400 Systolic blood pressure 114 mm[Hg] Rodo Simmons APRN - CNM Work Phone: [facility] [employer] 12-08-2021 00:34-0400 SaO2% (BldA) [Mass fraction] 94 % Rodo Simmons APRN - CHAN Work Phone: [facility] [employer] 12-07-2021 05:40-0400 Body height 165.1 cm Rodo Mason CNM Work Phone: [facility] [employer] 12-07-2021 05:40-0400 Body mass index (BMI) [Ratio] 30.12 kg/m2 Rodo Mason CNM Work Phone: [facility] [employer] 12-07-2021 05:40-0400 Body weight 82.1 kg Rodo Mason CNM Work Phone: [facility] [employer] Encounters Encounter Date Encounter Type Care Provider Facility Start: 08-13-2024 End: 08-13-2024 Clinisync Result Encounter Generic External Data Provider [facility] External [facility] Unsolicited Start: 08-13-2024 End: 08-13-2024 Clinisync Result Encounter Generic External Data Provider [facility] External Department Unsolicited Start: 08-13-2024 ambulatory MAULIK Zeeshan LEIGHO Not Yudelka ilable Start: 08-13-2024 End: 08-13-2024 Subsequent care visit Maulik eDl Toro [facility] Work Phone: [facility] Comment on above: Encounter for superv ision of other normal , third trimester (Primary Dx); History of section Start: 08-06-2024 End: 08-06-2024 Subsequent care visit Maulik Del Toro [facility] Work Phone: [facility] Comment on above: Encounter for superv ision of other normal , third trimester (Primary Dx); History of section Start: 08-06-2024 End: 08-06-2024 ambulatory MAULIK L OLGAO Not Available Start: 07-27-2024 End: 07-27-2024 Clinisync Result Encounter [...] 06-25-2024 End: 06-25-2024 Subsequent care visit Maulik Zeeshan Floro CNM [...] Start: 06-17-2024 End: 06-17-2024 Telephone encounter Maulik Zeeshan Floro CNM Work Phone: [facility] Start: 06-05-2024 End: 06-05-2024 ambulatory MAULIK L FLORO Not Available Start: 05-21-2024 End: 05-21-2024 Bamboo flowsheet Maulik L Floro CNM Work Phone: [facility] Start: 05-21-2024 End: 05-21-2024 Bamboo flowsheet Maulik L Floro CNM Work Phone: [facility] Start: 05-21-2024 End: 05-21-2024 Subsequent care visit Maulik Zeeshan Floro CNM [...] OB Start: 03-19-2024 End: 03-19-2024 ambulatory MAULIK DEL TORO Not Available Start: 03-19-2024 End: 03-19-2024 Subsequent care visit Maulik Del Toro CNM Work Phone: [facility] Comment on above: Encounter for superv ision of other normal , second trimester (Primary Dx); related condition in second trimester; Stomach pain Start: 02-26-2024 End: 02-26-2024 ambulatory MAULIK LEIGHO Not Available Start: 01-29-2024 End: 01-29-2024 ambulatory MAULIK LEIGHO Not Available Start: 01-29-2024 End: 01-29-2024 ambulatory MAULIK LEIGHO Not Available Start: 12-07-2021 End: 12-10-2021 Evaluation and management of inpatient RODO [facility] Start: 12-07-2021 End: 12-10-2021 Evaluation and management of inpatient Rodo Simmons HOG ROOM SUPERVISOR - CNM Work Phone: [facility] Labor and Delivery Comment on above: Third trimester preg corey Start: 06-24-2021 End: 06-24-2021 ambulatory ARINA DEL TORO Facility: Start: 06-06-2017 End: 06-06-2017 Ambulatory [facility] Start: 04-06-2017 End: 04-07-2017 Ambulatory [facility] Start: 03-28-2017 End: 03-29-2017 Ambulatory [facility] Procedures Date Procedure Procedure Detail Performing Clinician Start: 08-13-2024 US OB BPP W NON-STRESS Generic External Data Provider Start: 07-27-2024 ALL CBC WITH AUTO DIFF Narayan Martinez DO Work Phone: Start: 12-08-2021 Blood count complete automated Maulik Del Toro HOG ROOM SUPERVISOR - CNM Work Phone: Start: 12-08-2021 RHO(D) IMMUNE GLOBUL IN, Maulik Del Toro HOG ROOM SUPERVISOR - CN Work Phone: Start: 12-07-2021 SURGICAL PATHOLOGY REPORT Matt Light MD Work Phone: Start: 12-07-2021 Blood count complete auto&auto difrntl wbc Rodo Schmidt HOG ROOM SUPERVISOR - CN Work Phone: Start: 12-07-2021 biophysical pr ofile w/o non-stress testing Rodo Simmons HOG ROOM SUPERVISOR - CN Work Phone: Start: 12-07-2021 Drug tst prsmv instr mnt chem analyzers pr date Rodo Bryce Schmidt HOG ROOM SUPERVISOR - CN Work Phone: Start: 12-07-2021 Urinalysis microscop ic only Rodo Simmons HOG ROOM SUPERVISOR - CN Work Phone: Start: 12-07-2021 Urnls dip stick/tabl et rgnt auto w/o microscopy Rodo Simmons HOG ROOM SUPERVISOR - CN Work Phone: Start: 11-10-2021 GBS, EXTERNAL RESULT Ks storical Provider Start: 09-22-2021 ABO, EXTERNAL RESULT Ks storical Provider Start: 09-22-2021 RH FACTOR, EXTERNAL RESULT Historical Provider Start: 09-21-2021 RHOGAM, EXTERNAL RESULT Historical Provider Start: 05-04-2021 C. TRACHOMATIS, EXTE RNAL RESULT Historical Provider Start: 05-04-2021 HEPATITIS B, EXTERNA L RESULT Historical Provider Start: 05-04-2021 HIV, EXTERNAL RESULT Ks storical Provider Start: 05-04-2021 N. GONORRHOEAE, EXTE RNAL RESULT Historical Provider Start: 05-04-2021 RPR, EXTERNAL RESULT Ks storical Provider Start: 05-04-2021 RUBELLA TITER, EXTER NAL RESULT Historical Provider Start: 06-05-2017 Microscopic observat ion [Identifier] in Cervix by Cyto stain Rodo Simmons HOG ROOM SUPERVISOR - CN Work Phone: Start: 04-06-2017 CORTISOL TOTAL SONU DE LA ROSA SER Start: 04-06-2017 DHEA-SULFATE SONU DE LA ROSASE R Start: 04-06-2017 GLUCOSE, RANDOM SONU BRYAN ASER Start: 04-06-2017 INSULIN, TOTAL SONU DE LA ROSA SER Start: 04-06-2017 PROLACTIN SONU GONZALEZ R Start: 04-06-2017 TESTOSTERONE, FREE SONU GONZALEZ Start: 04-06-2017 TSH WITH REFLEX SONU BRYAN ASER Start: 04-06-2017 Us pelvic nonobstetr ic real-time image complete SONU GONZALEZ Start: 04-06-2017 US PELVIS COMPLETE TRANSVAGINAL NON OB SONU GONZALEZ Start: 03-28-2017 C.TRACHOMATIS N.GONORRHOEAE DNA, THIN PREP SONU GONZALEZ Start: 03-28-2017 VAGINITIS DNA PROBE MARISELA GONZALEZ H/O: section History of section Maulik Zeeshan Leigho CNM Work Phone: H/O: section History of section Maulik Zeeshan Leigho CNM Work Phone: H/O: section History of section Maulik Zeeshan Leigho CNM Work Phone: H/O: section History of section Maulik Zeeshan Leigho CNM Work Phone: H/O: section History of section Maulik Zeeshan Leigho CNM Work Phone: H/O: section History of section Maulik Zeeshan Leigho CNM Work Phone: Plan of Treatment Date Care Activity Detail Author Start: 09-03-2024 End: 09-03-2024 Patient encounter procedure 09/03/2024 10:30 AM EST Routine [facility] [address] [place] [address] Maulik Del Toro CNM [address] [place], [place] [id number] [facility] Start: 08-27-2024 End: 08-27-2024 Patient encounter procedure 08/27/2024 10:30 AM EST Routine [facility] [address] [place] [address] Maulik Del Toro CNM [address] [place] [address] [facility] Start: 08-19-2024 End: 08-19-2024 Patient encounter procedure 08/19/2024 10:15 AM EST Routine [facility] [address] [facility] [place] [address] Maulik Del Toro, CNM [address] [place] [address] [facility] Start: 08-13-2024 End: 08-13-2024 Patient encounter procedure 08/13/2024 10:30 AM EST Routine [facility] [address] [facility] [place] [address] Maulik Del Toro, CNM [address] [place] [address] [facility] Start: 08-06-2024 End: 08-06-2024 Patient encounter procedure 08/06/2024 11:30 AM EST Routine [facility] [address] [facility] [place] [address] Maulik Del Toro, CNM [address] [place] [address] [facility] Start: 07-23-2024 End: 07-23-2024 Patient encounter procedure 07/23/2024 10:00 AM EST Routine [facility] [address] [facility] [place] [address] Maulik Del Toro, CNM [address] [place] [address] [facility] Start: 06-24-2024 End: 06-24-2024 Patient encounter procedure [facility] Comment on above: Arrived Start: 05-21-2024 End: 05-21-2024 Patient encounter procedure [facility] Comment on above: Arrived Start: 04-23-2024 End: 04-23-2024 Professional / ancillary services management 04/23/2024 10:00 AM EDT Ancillary Procedure [facility] [address] [place] [id number] [facility] Start: 04-23-2024 End: 04-23-2024 Patient encounter procedure [facility] Comment on above: Arrived Start: 03-19-2024 End: 03-19-2025 US for US OB 14+ weeks anatomy scan Imaging Routine related condition in second trimester Expected: 03/19/2024, Expires: 03/19/2025 [facility] Work Phone: Comment on above: Expected: 03/19/2024 , Expires: 03/19/2025 Start: 03-16-2024 Influenza vaccination Influenza Vacc ine (#1) [facility] Start: 03-04-2024 Screening for malign ant neoplasm of cervix [facility] Start: 03-16-2022 Influenza vaccination Flu vacc ine (Season Ended) [facility] Start: 2020 Screening for malign ant neoplasm of [facility]ix [facility] Start: 06-05-2020 Screening for malign ant neoplasm of cervix Pap smear [facility] Start: 2009 DTaP/Tdap/Td vaccine (1 - Tdap) DTaP/Tdap/Td vaccine (1 - Tdap) [facility] Start: 2008 Hepatitis C screening Hepatitis C sc reen [facility] Start: 2005 HIV screening HIV screen [facility] Start: 2002 Depression Screen Depression Screen [facility] Start: 1995 COVID-19 Vaccine (1) COVID-19 Vaccin e (1) [facility] Start: 1991 Varicella vaccine (1 of 2 - 2-dose childhood series) Varicella vaccine (1 of 2 - 2-dose childhood series) [facility] Nonrebreather mask oxygen Nonrebreather mask oxygen Respiratory Care Routine As directed - RT (PRN) until discontinued starting 12/07/2021 [employer] Phone: Comment on above: As directed - RT (DC N) until discontinued starting 12/07/2021 Oxygen therapy [[facility] Data Set] Initiate Oxygen Therapy Protocol Respiratory Care Routine As Needed until discontinued starting 12/07/2021 [employer] Phone: Comment on above: As Needed until disc ontinued starting 12/07/2021 RHOGAM RHOGAM POSTPAR MARCELINO Blood Bank [employer] Label Print 12/08/2021 7:15 AM EDT [employer] Phone: Spirometry panel Incentive drea metry Respiratory Care Routine Every 2hr while awake until discontinued starting 12/08/2021 [employer] Phone: Comment on above: Every 2hr while awak e until discontinued starting 12/08/2021 Immunizations Immunization Date Immunization Notes Care Provider Fa [facility] 12-07-2021 diphtheria, tetanus toxoids and acellular pertussis vaccine, unspecified formulation Rodomiguel Simmons [employer] Work Phone: [employer] Phone: 12-07-2021 measles, mumps and rubella virus vaccine Rodo Troy [employer] Work Phone: [employer] Phone: Payers Date Payer Category Payer Private Health Insurance [employer] [id number] 2022 Unknown [employer] [id number] 2022-Present [address] [place] [address] [id number] 2022 Unknown [id number] 2016 Unknown [id number] 1990 Unknown [id number] [id number]. 593 1990 Unknown [id number] 2.16.840.1.630294.3.579.2. 173 1990 Unknown [id number] 2.16.840.1.582060.3.579.2. 9 1990 Unknown [id number] 2.16.840.1.674157.3.579.2. 9 1990 Unknown [id number] 2.16.840.1.941049.3.579.2. 9 1990 Unknown [id number] 2.16.840.1.394351.3.579.2. 9 1990 Unknown [id number] 2.16.840.1.943367.3.579.2. 1259 1990 Unknown [id number] 2.16.840.1.530253.3.579.2. 9 1990 Unknown [id number] 2.16.840.1.955683.3.579.2. 9 1990 Unknown [id number] 2.16.840.1.557732.3.579.2. 9 1990 Unknown [id number] 2.16.840.1.937238.3.579.2. 9 1990 Unknown [id number] 2.16.840.1.639118.3.579.2. 9 1990 Unknown [id number] 2.16.840.1.843023.3.579.2. 1259 1990 Unknown [id number] 2.16.840.1.150289.3.579.2. 1259 1990 Unknown [id number] 2.16.840.1.183793.3.579.2. 1259 1959 Unknown [id number] Social History Date Type Detail Facility Start: 03-28-2017 End: 06-20-2023 Tobacco smoking status SCIS Ex-smoker [employer] Phone: History of tobacco use Cigarette Smoker [employer] Phone: Start: 03-28-2017 End: 01-29-2024 Cigarettes smoked current (pack per day) - Reported 1 [employer] Phone: Start: 03-28-2017 End: 06-20-2023 Tobacco use and exposure Smokeless tobacco non-user [employer] Phone: Start: 12-07-2021 Alcohol intake Ex-drinker (finding) [employer] Phone: Start: 1990 Sex Assigned At Not on file [employer] Phone: Start: 11-27-2021 End: 12-07-2021 Exposure to SARS-CoV-2 (event) Not sure [employer] Phone: History of tobacco use Current smoker [facility] Start: 01-29-2024 Alcoholic beverage intake Lifetime non-drinker (finding) [facility] Start: 01-29-2024 Tobacco use panel [facility] Start: 05-21-2023 Alcohol Comment caffeine: 1-2 cups per day [facility] Start: 12-23-2023 [facility] Clinical Notes 12-10-2021 to 08-13-2024 Maulik Del Toro CNM - 08/13/2024 10:30 AM Kyler Del Toro CNM - 08/06/2024 11:30 AM Kyler Del Toro CNM - 07/23/2024 10:00 AM Princess Mann MA - 06/25/2024 10:30 AM ESTInstructions Note Date & Type Note Facility 08-13-2024 History of Present illness Narrative Subjective No chief complaint on file. Alton Davis is a 34 y.o. at 35w3d with a working estimated date of delivery [...] Spinal N XANDER Her is complicated by: had pain and contractions earlier in Objective Physical Exam weight: 165 lb Expected Total Weight Gain: 25 lb-35 lb Pregravid BMI: 21.13 BP: 108/60 Urine protein Urine glucose Assessment/Plan Diagnoses and all orders for this visit: Encounter for supervision of other normal , third trimester History of section Continue vitamin. Labs reviewed. GBS next visit Expected mode of delivery- repeat section Follow up in 1 week for a routine visit. documented in this encounter [facility] 08-06-2024 History of Present illness Narrative Subjective [...] a routine visit. documented in this encounter [facility] 07-23-2024 History of Present illness Narrative Subjective [...] a routine visit. documented in this encounter [facility] 06-25-2024 History of Present illness Narrative [...] a routine visit. documented in this encounter [facility] 06-17-2024 Telephone encounter Note Licha arciniega needs lab result that has her blood type on it and Demo sheet faxed to [phone] [facility] 06-17-2024 Miscellaneous Notes Licha arciniega needs lab result that has her blood type on it and Demo sheet faxed to [phone] documented in this encounter [facility] 05-21-2024 History of Present illness Narrative [...] a routine visit. documented in this encounter [facility] 04-23-2024 History of Present illness Narrative [...] a routine visit. documented in this encounter [facility] 03-19-2024 History of Present illness Narrative [...] trimester related condition in second trimester - OB 14+ weeks anatomy scan; Future Continue vitamin. Labs reviewed. Rhogam needed at 28 weeks GTT at 28 weeks Follow up in 2 weeks for a routine visit. documented in this encounter [facility] 12-10-2021 Hospital Discharge instructions Lorin Arias, RN - 12/10/2021 Follow-up with your OB doctor as specified. [facility] OB Department phone: Chikis Del Toro, MSN, HOG ROOM SUPERVISOR, CNM [facility] [address] [place] [address] DIET Eat a well balanced diet focusing on foods high in fiber and protein. Drink plenty of fluids especially water. To avoid constipation you may take a mild stool softener as recommended by your doctor or plastic parts designer. ACTIVITY Gradually increase your activity. Resume exercise regimen only after advice by your doctor or plastic parts designer. Avoid lifting anything heavier than a gallon of milk for SIX weeks. Avoid driving until your doctor or plastic parts designer has given their approval. Rise slowly from [...] medications as recommended by your doctor or plastic parts designer for pain If you develop a warm, [...] vitamins as directed by your doctor or plastic parts designer. Refer to the booklet in the folder/binder for more information. If you feel you need more assistance or have questions, please call Vibha Crump IBCLC, sap security consultant, at or the OB department to [...] your calf. documented in this encounter [employer] Phone: 12-10-2021 History of Present illness Narrative [...] her updated on POC. Both verbalize understanding. S. Simmons CNM notified of patients arrival, c/o [...] provide urine sample. documented in this encounter [employer] Phone: Evaluation note Diagnosis Uterine contractions- Primary Third trimester Term intolerance to labor, delivered, current hospitalization Abnormality in heart rate/rhythm, delivered, with or without mention of antepartum condition delivery delivered delivery, without mention of indication, delivered, with or without mention of antepartum condition documented in this encounter [employer] Phone: Evaluation note* Diagnosis Encounter for supervision of other [...] function of stomach documented in this encounter [facility] HealthcareEvaluation note* Diagnosis Encounter for supervision of other normal , second trimester- Primary Choroid plexus cyst Cerebral cysts History of section Other postprocedural status Choroid plexus cyst Cerebral cysts [facility] Diagnosis Encounter for supervision of other normal , third trimester- Primary History of section Other postprocedural status documented in this encounter [facility]* Diagnosis Encounter for supervision of other normal , third trimester- Primary History of section Other postprocedural status documented in this encounter [facility] Healthcare Summary Purpose Family History No Family History Records FoundNo Family History Records FoundNo Family History Records FoundNo Family History Records FoundNo Family History Records Found Advance Directives No Advanced Directives Records FoundDocuments on File Type Date Recorded Patient Mohs Surgeon Expl anation ACP-Advance Directive ACP-Power of Labor Delivery Rn Latest Code Status on File Code Status Date Activated Date Inactivated Comments Full Code 12/07/2021 11:34 PM Full Code 12/07/2021 5:30 AM 12/07/2021 11:33 PM Additional Source Comments INFORMATION SOURCE (unrecogn ized section and content) DATE CREATED AUTHOR 01/08/2018 [facility] DATE CREATED AUTHOR AUTHOR'S ORGANIZ ATION 12/02/2021 [facility] dical Specialist DATE CREATED AUTHOR AUTHOR'S ORGANIZ ATION 12/08/2021 [facility] DATE CREATED AUTHOR AUTHOR'S ORGANIZ ATION 01/15/2022 [facility] DATE CREATED AUTHOR AUTHOR'S ORGANIZ ATION 08/15/2024 [facility] dical Specialists EPIC Reason for Visit (unrecogniz ed section and content) Reason Comments Contractions Specialty Diagnoses / Procedures Referred By Contac t Referred To Contact Diagnoses Uterine contractions Term intolerance to labor, delivered, current hospitalization Rodo Schmidt, HOG ROOM SUPERVISOR - [facility]ANNA[facility] [address] [place] [address] [facility] [address] [place] [address] Referral ID Status Reason Start Date Expiration Date Visits Re quested Visits Authorized [id number] 1 1 Ordered Prescriptions (unrec ognized section [...] RN) 0808 (Given - Provider: Usha Murguia, RN)2336 (Given - Provider: Daria Arce, RN) 0900 (Due)2100 (Due) enoxaparin (LOVENOX) injection 40 mg 40 mg, SubCUTAneous, DAILY, First dose on Katarzyna 12/08/21 at 1030, Until Discontinued, Indication of Use: Prophylaxis-DVT/PE, 1107 (Given - Provider: Sherry Matt RN) 0808 (Given - Provider: Usha Murguia, RN) 0900 (Due) furosemide (LASIX) tablet 20 [...] Matt RN)0800 (Due: Stopped - Provider: Domitila Herzog, NESS) vitamin 27-1 MG tablet 1 tablet 1 [...] at 0000, 0900 (Due - Provider: Domitila Herzog, NESS) sertraline (ZOLOFT) tablet 25 mg 25 mg, Oral, DAILY, First dose on Katarzyna 12/08/21 at 1015, Until Discontinued 1904 (Not Given - Provider: Sherry Matt RN - Reason: Other - Comment: pt reports that she takes med nightly.)2118 (Given - Provider: Daria Arce RN) 2099 (Due - Provider: Kaushik Lindsey [facility]) 2099 (Due - Provider: Kaushik Lindsey [facility]) sodium chloride flush 0.9 % injection 5-40 [...] IV Fluid Infusing)2099 (Due) 0900 (Due)2099 (Due) 0900 (Due)2099 (Due) ftqkqmi-gfeilb-fairh pertussis (BOOSTRIX) injection 0.5 mL 0.5 mL, [...] Domitila Herzog RN)212 (Given - Provider: Daria Arce RN) 0418 [...] Murguia, RN)1816 (Given - Provider: Nataliia York, RN) 0513 (Given - Provider: Lottie Maldonado, NESS)1400 [...] mg, IntraVENous, PRN, Starting on Sun12/07/21 at 233, Until Discontinued, Opioid Reversal, Post-op ondansetron (ZOFRAN) [...] BE BASED ON THE PRIMARY CLINICAL RECORDS. [employer] provides no warranty or guarantee of the accuracy or completeness of information in this document.
[2024-08-16 10:15] VITALS: BP 119/76; PULSE 82; TEMP 36.3
== END 2024-08-16 11:08 | disposition home or self-care (01) ==
LOC: FBCO 03:25 → FBC 10:07
PROVIDERS: PCP Midwife; Visit Provider Obstetrics & Gynecology
DX: O26.893 Other specified pregnancy related conditions, third trimester (principal)
CPT/HCPCS: 59025

== ENCOUNTER 2024-08-19 12:32 | Observation (INO) | payer OTHER, SELFPAY ==
--- OUTSIDE RECORDS SUMMARY | 2024-08-19 12:39 | XMS_ITS | CCD ---
Author Organization [facility] Care Team Providers Care Straight Edger Name Role Phone SONU GONZALEZ Unavailable Unavailable GONZALEZ SONU K Unavailable Unavailable GONZALEZSONU K Unavailable Unavailable GONZALEZ, SONU K Unavailable [...] Propensity to adverse reactions to substance 12-07-2021 [facility] Medications Current Medications Medication Drug Class(es) Dates [...] Active docusate sodium 50 mg / sennosides, detention 8.6 mg oral tablet (1 source) Start: [...] US OB BPP W NON-STRESS on 08-13-2024 [place] [address] Ultrasound Report Signed Patient: ALTON DAVIS MR#: [id number] : 1990 Acct:[id number] Age/Sex: 34 / F ADM Date: 08/13/24 Loc: [facility] 258-[address]: Narayan Martinez D.O. Ordering Physician: Narayan Martinez D.O. Date of Service: 08/13/24 Procedure(s): US OB BPP w non-stress Accession Number(s): [id number] cc: MAULIK DEL TORO APRN, CNM; Narayan Martinez D.O. [place] [address] Patient Name: ALTON DAVIS MRN: [id number] date: 1990 Sex: F Assigned Patient Location: [facility] Current Patient Location: [facility] Accession/Order Number: [id number] Exam Date: 08/13/2024 09:15 Report Date: 08/13/2024 [...] M.D. Signed By: 08/13/24945 DD/ 3 TD/TT: Office Technician: [facility] Radiology, Radiolognorm gary MD - 08/13/2024 [place] [address] Ultrasound Report Signed Patient: ALTON DAVIS MR#: [id number] : 1990 Acct:[id number] Age/Sex: 34 / F ADM Date: 08/13/24 Loc: [facility] 258-[address]: Narayan Martinez D.O. Ordering Physician: Narayan Martinez D.O. Date of Service: 08/13/24 Procedure(s): US OB BPP w non-stress Accession Number(s): [id number] cc: MAULIK DEL TORO APRN, CNM; Narayan Martinez D.O. [place] [address] Patient Name: ALTON DAVIS MRN: [facility]:[id number] date: 1990 Sex: F Assigned Patient Location: [facility] Current Patient Location: [facility] Accession/Order Number: [id number] Exam Date: 08/13/2024 09:15 Report Date: 08/13/2024 [...] M.D. Signed By: 08/13/2446 DD/ 3 TD/TT: Office Technician: [facility] Radiology Study observation (narrative) [facility] US OB BPP W NON-STRESS Ordered By: Radiologist Radiology on 08-13-2024 [facility] Work Phone: ALL CBC WITH AUTO DIFFon BASOPHILS ABSOLUTE AUTO 0 [facility] Basophils/100 WBC (Bld) 0.2 % 0.2 - 2.0 % [facility] Eosinophils/100 WBC (Bld) 0.2 % Low 0.9 - 7.0 % [facility] Erythrocyte distribution width (RBC) [Ratio] 12.6 % 11.0 - 15.0 % [facility] Hematocrit (Bld) [Volume fraction] 33.1 % Low 36.0 - 48.0 % [facility] Hemoglobin (Bld) [Mass/Vol] 11.1 g/dL Low 12.0 - 16.0 g/dL [facility] IMMATURE GRANULOCYTES ABS AUTO 0.16 High [facility] Immature granulocytes/100 WBC (Bld) 1.1 % High 0.0 - 0.5 % [facility] Interpretation and review of laboratory results Abnormal [facility] LYMPHOCYTES ABSOLUTE AUTO 1.5 [facility] Lymphocytes/100 WBC (Bld) 10.3 % Low 20.5 - 60.0 % [facility] MCH (RBC) [Entitic mass] 30.6 pg 26.7 - 34.0 pg [facility] MCHC (RBC) [Mass/Vol] 33.5 g/dL 29.9 - 35.2 g/dL [facility] MCV (RBC) [Entitic vol] 91.2 fL 81.0 - 99.0 fL [facility] MONOCYTES ABSOLUTE AUTO 0.9 High [facility] Monocytes/100 WBC (Bld) 6.3 % 1.7 - 12.0 % [facility] NEUTROPHILS ABSOLUTE AUTO 11.8 High [facility] Neutrophils/100 WBC (Bld) 81.9 % High 43.0 - 75.0 % [facility] Platelet mean volume (Bld) [Entitic vol] 10.2 fL 9.5 - 13.5 fL [facility] TBH EO # 0 [facility] TBH PLT 224 [facility] TB RBC 3.63 Low [facility] TBH WBC 14.4 High [facility] US for pregnancyon TITLE OF EXAM: [...] report is generated using voice recognition reporting (Optimizely). On occasion PowerScribe erroneously drops words from [...] report is generated using voice recognition reporting (Optimizely). On occasion PowerScribe erroneously drops words from the report or replaces the spoken word with similar sounding words. Please call with any questions/concerns regarding this report.* Dictated and transcribed 06/05/24/dpd This report has been electronically signed and approved by the interpreting radiologist. [facility] US for pregnancyOrdered By: Yordan Duran on 06-06-2024 [facility] Work Phone: US OB LIMITED 1+ [...] report is generated using voice recognition reporting (Optimizely). On occasion Civic Artworkscribe erroneously drops words from the report or replaces the spoken word with similar sounding words. Please call with any questions/concerns regarding this report.* Dictated and transcribed 06/05/24/dpd This report has been electronically signed and approved by the interpreting radiologist. Normal Not Available US for pregnancyon Radiology Study observation (narrative) [facility] OB 14+ WEEKS ANATOMY SCAN on [...] 2.8 cm. Yolk sac diameter 0.3 cm. [place] rump length is 1.5 cm. heart rate [...] SURGICAL PATHOLOGY CONSULTATION Patient Name: ALTON DAVIS [facility] Rec: [id number] Path Number: [id number] [facility] ANATOMIC PATHOLOGY [address] [place] [address]. [place], [place] [id number] [facility] BIOPHYSICAL PROFILE WO NON STRESS TESTINGon 12-09-2021 [...] Ajit Warner MD 12/09/21 Final result Normal [facility] Biophysical profile score 8/8. KUNAL 7.1. The findings were sent to the Radiology Results Communication Center at 10:15 am on 12/07/2021 to be communicated to a licensed caregiver. [facility] CONSOLIDATED EXAMINATION: BIOPHYSICAL PROFILE WITHOUT NON-STRESS [...] fluid index 7.1 with MVP 2.8 cm. MHAjit Negrete MD - 12/09/2021 EXAMINATION: BIOPHYSICAL PROFILE WITHOUT [...] to be communicated to a licensed caregiver. [facility] Phone: US BIOPHYSICAL PROFILE WO NON STRESS TESTINGOrdered By: Ajit Warner on 12-09-2021 [facility] Phone: CBCon 12-08-2021 Erythrocyte distribution width (RBC) [Ratio] 14.3 % Normal 11.8-14.4 [facility] Comment on above: Performed By: #### C BC #### [facility] [address] [place] [address] Patient Services Technician: Mohamud Lucas MD Hematocrit (Bld) [Volume fraction] 26.3 % Low 36.3-47.1 [facility] Comment on above: Performed By: #### C BC #### [facility] [address] [place] [address] Patient Services Technician: Mohamud Lucas MD Hemoglobin (Bld) [Mass/Vol] 8.5 g/dL Low 11.9-15.1 [facility] Comment on above: Performed By: #### C BC #### [facility] [address] [place] [address] Patient Services Technician: Mohamud Lucas MD MCH (RBC) [Entitic mass] 27.0 pg Normal 25.2-33.5 [facility] Comment on above: Performed By: #### C BC #### [facility] [address] [place] [address] Dr[place], [place] [id number] Patient Services Technician: Mohamud Lucas MD MCHC (RBC) [Mass/Vol] 32.3 g/dL Normal 28.4-34.8 [facility] Comment on above: Performed By: #### C BC #### [address] [place], [place] 6116683 Patient Services Technician: Mohamud Lucas MD MCV (RBC) [Entitic vol] 83.5 fL Normal 82.6-102.9 [facility] Comment on above: Performed By: #### C BC #### [address] [place], [place] 2173583 Patient Services Technician: Mohamud Lucas MD NRBC Automated 0.0 per 100 WBC Normal 0.0 [facility] Comment on above: Performed By: #### C BC #### [address] [place] [address] Patient Services Technician: Mohamud Lucas MD Platelet mean volume (Bld) [Entitic vol] 11.1 fL Normal 8.1-13.5 [facility] Comment on above: Performed By: #### C BC #### [address] [place] [address] Patient Services Technician: Mohamud Lucas MD Platelets (Bld) [#/Vol] 219 10*3/uL Normal 138-453 [facility] Comment on above: Performed By: #### C BC #### [address] [place], [place] 2291183 Patient Services Technician: Mohamud Lucas MD RBC (Bld) [#/Vol] 3.15 10*6/uL Low 3.95-5.11 [facility] Comment on above: Performed By: #### C BC #### [facility] [address] [place] [address] Patient Services Technician: Mohamud Lucas MD WBC (Bld) [#/Vol] 20.6 10*3/uL High 3.5-11.3 [facility] Comment on above: Performed By: #### C BC #### [facility] [address] [place] [address] Patient Services Technician: Mohamud Lucas MD Hematocrit (Bld) [Volume fraction] 26.3 % Low 36.3 - 47.1 % [facility] Hemoglobin.gastroin testinal spec 1 Ql (Stl) 8.5 g/dL Low 11.9 - 15.1 g/dL [facility] Interpretation and review of laboratory results Abnormal [facility] MCH (RBC) [Entitic mass] 27.0 pg 25.2 - 33.5 pg [facility] MCHC (RBC) [Mass/Vol] 32.3 g/dL 28.4 - 34.8 g/dL [facility] MCV (RBC) [Entitic vol] 83.5 fL 82.6 - 102.9 fL [facility] NRBC Automated 0.0 0.0 per 100 WBC [facility] Platelet distribution width (Bld) [Ratio] 14.3 % 11.8 - 14.4 % [facility] Platelet mean volume (Bld) [Entitic vol] 11.1 fL 8.1 - 13.5 fL [facility] Platelets (Bld) [#/Vol] 219 10*3/uL [facility] RBC (Bld) [#/Vol] 3.15 10*6/uL Low 3.95 - 5.1 1 m/uL [facility] WBC (Bld) [#/Vol] 20.6 10*3/uL High [facility] RhIg Workup (RhoGam)on 12-08 RhIg Workup (RhoGam) Blood Component Type MANUFACTURED PRODUCT Units Ordered 1 ABO/Rh(D) A NEGATIVE Antibody Screen NEGATIVE History Check NO PREVIOUS HISTORY Rhig Eligibility Patient Is A Candidate For Injection Eugenie NEGATIVE Du Antigen NOT TESTED Unit Number [id number] Blood Component Type RHIG Unit Division 00 Status of Unit REL FROM ALLOC Transfusion Status OK TO TRANSFUSE Normal [facility] Comment on above: Performed By: #### R HIGW #### [facility] [address] [place] [address] Patient Services Technician: Mohamud Lucas MD CBC auto differentialon 11-14 [facility] # [facility].08 [facility] Absolute Immature Granulocyte 0.08 [facility] Absolute Lymph # 1.81 [facility] Absolute [place] # 0.88 [facility] Basophils (Bld) [#/Vol] 0.04 10*3/uL [facility] Basophils/100 WBC (Bld) 0 % 0 - 2 % [facility] Eosinophils/100 WBC (Bld) 1 % 1 - 4 % [facility] Hematocrit (Bld) [Volume fraction] 32.8 % Low 36.3 - 47.1 % [facility] Hemoglobin.gastroin testinal spec 1 Ql (Stl) 10.3 g/dL Low 11.9 - 15.1 g/dL [facility] Immature granulocytes/100 WBC (Bld) 1 % High 0 [facility] Interpretation and review of laboratory results Abnormal [facility] Lymphocytes/100 WBC (Bld) 15 % Low 24 - 43 % [facility] MCH (RBC) [Entitic mass] 26.5 pg 25.2 - 33.5 pg [facility] MCHC (RBC) [Mass/Vol] 31.4 g/dL 28.4 - 34.8 g/dL [facility] MCV (RBC) [Entitic vol] 84.5 fL 82.6 - 102.9 fL [facility] Monocytes/100 WBC (Bld) 7 % 3 - 12 % [facility] NRBC Automated 0.0 0.0 per 100 WBC [facility] Platelet distribution width (Bld) [Ratio] 14.2 % 11.8 - 14.4 % [facility] Platelet mean volume (Bld) [Entitic vol] 11.9 fL 8.1 - 13.5 fL [facility] Platelets (Bld) [#/Vol] 259 10*3/uL [facility] RBC (Bld) [#/Vol] 3.88 10*6/uL Low 3.95 - 5.1 1 m/uL [facility] Segmented neutrophils/100 WBC (Bld) 76 % High 36 - 65 % [facility] Segs Absolute 9.01 High [facility] WBC (Bld) [#/Vol] 11.9 10*3/uL High [facility] CBC with Diffon 12-07-2021 Abs. Basophil 0.04 k/uL Normal 0.00-0.20 [facility] Comment on above: Performed By: #### C DP #### [facility] [address] [place] [address] [place] [id number] Patient Services Technician: Mohamud Lucas MD Abs.Imm.Granulocyte 0.08 k/uL Normal 0.00-0.30 [facility] Comment on above: Performed By: #### C DP #### [address] [place] [address] Patient Services Technician: Mohamud Lucas MD Abs.Neutrophil (Seg) 9.01 k/uL High 1.50-8.10 [facility] Comment on above: Performed By: #### C DP #### [facility] [address] [place], [facility]83 Patient Services Technician: Mohamud Lucas MD Basophils/100 WBC (Bld) 0 % Normal 0-2 [facility] Comment on above: Performed By: #### C DP #### [facility] [address] [place] [address] [place] [address] Patient Services Technician: Mohamud Lucas MD Eosinophils (Bld) [#/Vol] 0.08 10*3/uL Normal 0.00-0.44 [facility] Comment on above: Performed By: #### C DP #### [facility] [address] [place], [place] [id number] Patient Services Technician: Mohamud Lucas MD Eosinophils/100 WBC (Bld) 1 % Normal 1-4 [facility] Comment on above: Performed By: #### C DP #### [facility] [address] [place], [facility]83 Patient Services Technician: Mohamud Lucas MD Erythrocyte distribution width (RBC) [Ratio] 14.2 % Normal 11.8-14.4 [facility] Comment on above: Performed By: #### C DP #### [facility] [address] [place], [facility]83 Patient Services Technician: Mohamud Lucas MD Hematocrit (Bld) [Volume fraction] 32.8 % Low 36.3-47.1 [facility] Comment on above: Performed By: #### C DP #### [facility] [address] [place] [address] Dr. [place], [facility]83 Patient Services Technician: Mohamud Lucas MD Hemoglobin (Bld) [Mass/Vol] 10.3 g/dL Low 11.9-15.1 [facility] Comment on above: Performed By: #### C DP #### [address] [place], [facility]83 Patient Services Technician: Mohamud Lucas MD Immature granulocytes/100 WBC (Bld) 1 % High 0 [facility] Comment on above: Performed By: #### C DP #### [facility] [address] [place], [facility]83 Patient Services Technician: Mohamud Lucas MD Lymphocytes (Bld) [#/Vol] 1.81 10*3/uL Normal 1.10-3.70 [facility] Comment on above: Performed By: #### C DP #### [facility] [address] [place], [place] [address]1383 Patient Services Technician: Mohamud Lucas MD Lymphocytes/100 WBC (Bld) 15 % Low 24-43 [facility] Comment on above: Performed By: #### C DP #### [facility] [address] [place], [place] 1974283 Patient Services Technician: Mohamud Lucas MD MCH (RBC) [Entitic mass] 26.5 pg Normal 25.2-33.5 [facility] Comment on above: Performed By: #### C DP #### [facility] [address] [place], [place] 3465283 Patient Services Technician: Mohamud Lucas MD MCHC (RBC) [Mass/Vol] 31.4 g/dL Normal 28.4-34.8 [facility] Comment on above: Performed By: #### C DP #### [facility] [address] [place] [address] Dr[place], [facility]83 Patient Services Technician: Mohamud Lucas MD MCV (RBC) [Entitic vol] 84.5 fL Normal 82.6-102.9 [facility] Comment on above: Performed By: #### C DP #### [address] [place], [place] 3283583 Patient Services Technician: Mohamud Lucas MD Monocytes (Bld) [#/Vol] 0.88 10*3/uL Normal 0.10-1.20 [facility] Comment on above: Performed By: #### C DP #### [facility] [address] [place] [address] Dr. [place], [place] [phone] Patient Services Technician: Mohamud Lucas MD Monocytes/100 WBC (Bld) 7 % Normal 3-12 [facility] Comment on above: Performed By: #### C DP #### [facility] [address] [place], [place] 7784883 Patient Services Technician: Mohamud Lucas MD Neutrophil (Seg) 76 % High 36-65 [facility] Comment on above: Performed By: #### C DP #### [facility] [address] [place], [place] 5826183 Patient Services Technician: Mohamud Lucas MD NRBC Automated 0.0 per 100 WBC Normal 0.0 [facility] Comment on above: Performed By: #### C DP #### [facility] [address] [place], [place] 5178883 Patient Services Technician: Mohamud Lucas MD Platelet mean volume (Bld) [Entitic vol] 11.9 fL Normal 8.1-13.5 [facility] Comment on above: Performed By: #### C DP #### [facility] [address] [place], [place] 992[address]83 Patient Services Technician: Mohamud Lucas MD Platelets (Bld) [#/Vol] 259 10*3/uL Normal 138-453 [facility] Comment on above: Performed By: #### C DP #### [facility] [address] [place], [place] 8657383 Patient Services Technician: Mohamud Lucas MD RBC (Bld) [#/Vol] 3.88 10*6/uL Low 3.95-5.11 [facility] Comment on above: Performed By: #### C DP #### [facility] [address] [place] [address] [place], [place] [address] Patient Services Technician: Mohamud Lucas MD WBC (Bld) [#/Vol] 11.9 10*3/uL High 3.5-11.3 [facility] Comment on above: Performed By: #### C DP #### [facility] [address] [place], [place] 6334683 Patient Services Technician: Mohamud Lucas MD DRUG SCREEN MULTI URINEon Amphetamine Screen, Ur Negative NEGATIVE [facility] Barbiturate Screen, Ur Negative NEGATIVE [facility] Benzodiazepine Screen, Urine Negative NEGATIVE [facility] Buprenorphine Urine Negative NEGATIVE [facility] Cannabinoid Scrn, Ur Negative NEGATIVE [facility] Cocaine Metabolite, Urine Negative NEGATIVE [facility] Methadone Screen, Urine Negative NEGATIVE [facility] Methamphetamine, Urine Negative NEGATIVE [facility] Opiates, Urine Negative NEGATIVE [facility] Oxycodone Screen, Ur Negative NEGATIVE [facility] Phencyclidine, Urine Negative NEGATIVE [facility] Propoxyphene, Urine Negative NEGATIVE [facility] Tricyclic Antidepressants, Urine Negative NEGATIVE [facility] Comment on above: Drug screen results are to be used for medical purposes only. All positive results are unconfirmed. Testing for employment or legal uses should be sent to a reference laboratory for confirmation. [facility] Drug Scr, Abuse, Uron 2021 Amphetamine(s),Ur Negative Normal NEG [facility] Comment on above: Performed By: #### D AU #### [facility] [address] [place] [address] [place] [phone] Patient Services Technician: Mohamud Lucas MD Barbiturate(s),Ur Negative Normal NEG [facility] Comment on above: Performed By: #### D AU #### [facility] [address] [place] [address] [place] 3690783 Patient Services Technician: Mohamud Lucas MD Benzodiazepine(s) Negative Normal NEG [facility] Comment on above: Performed By: #### D AU #### [facility] [address] [place] [address] Dr[place] 3690783 Patient Services Technician: Mohamud Lucas MD Buprenorphrine, Ur Negative Normal NEG [facility] Comment on above: Performed By: #### D AU #### [facility] [address] [place] [address] [place] [address] Patient Services Technician: Mohamud Lucas MD Cannabinoid(s),Ur Negative Normal NEG [facility] Comment on above: Performed By: #### D AU #### [facility] [address] [place] [address] [place] [address] Patient Services Technician: Mohamud Lucas MD Cocaine Metabolite Negative Normal [facility] Comment on above: Performed By: #### D AU #### [facility] [address] [place], [place] 8376083 Patient Services Technician: Mohamud Lucas MD Methadone Ql (U) Negative Normal [facility] Comment on above: Performed By: #### D AU #### [facility] [address] [place], [place] 9283683 Patient Services Technician: Mohamud Lucas MD Methamphetamine, Ur Negative Normal NEG [facility] Comment on above: Performed By: #### D AU #### [facility] [address] [place] [address] [place], [place] 7103083 Patient Services Technician: Mohamud Lucas MD Opiate(s), Ur Negative Normal [facility] Comment on above: Performed By: #### D AU #### [facility] [address] [place], [place] 6854083 Patient Services Technician: Mohamud Lucas MD Oxycodone, Urine Negative Normal [facility] Comment on above: Performed By: #### D AU #### [facility] [address] [place] [address] [place], [place] 3854783 Patient Services Technician: Mohamud Lucas MD Phencyclidine, Ur Negative Normal [facility] Comment on above: Performed By: #### D AU #### [facility] [address] [place], [place] 2055983 Patient Services Technician: Mohamud Lucas MD Propoxyphene,Urine Negative Normal NEG [facility] Comment on above: Performed By: #### D AU #### [facility] [address] [place] [address] Dr. [place], [place] [phone] Patient Services Technician: Mohamud Lucas MD Tricyclic antidepressants Screen Ql (U) Negative Normal [facility] Comment on above: Result Comment: Drug screen results are to be used for medical purposes only. All positive results are unconfirmed. Testing for employment or legal uses should be sent to a reference laboratory for confirmation. Performed By: #### D #### [address] [place] [address] Patient Services Technician: Mohamud Lucas MD Microscopic Urinalysison - [facility] Bacteria, UA 2+ Abnormal None [facility] Epithelial Cells UA 2 TO 5 [facility] Interpretation and review of laboratory results Abnormal [facility] RBC, UA 0 TO 2 [facility] WBC, UA 2 TO 5 [facility] Yeast, UA PRESENCE NOTED Abnormal None [facility] OPERATIVE REPORTon OPERATIVE REPORT [address] [id number] OPERATIVE REPORT PATIENT NAME: ALTON DAVIS : 1990 MED REC NO: [id number] ROOM: [id number] ACCOUNT NO: [id number] ADMIT DATE: 12/07/2021 PROVIDER: Matt Light MD [...] section, low transverse uterine segment. ANESTHESIA: Epidural. KNOCKOUT MAN: Maulik Del Toro. 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 head was elevated and turned. Enough [...] a running imbricating interlocking fashion. A few [id number] sutures were placed along the central inferior [...] were mentioned. MATT LIGHT MD [id number] Doc#: [id number] CC: Maulik Del Toro [facility] Surgical Pathologyon 022 Surgical Pathology [...] SURGICAL PATHOLOGY CONSULTATION Patient Name: ALTON DAVIS [facility] Rec: [id number] Path Number: [id number] [employer] [facility] ANATOMIC PATHOLOGY [address] [place] [phone] [facility] Comment on above: Performed By: #### P PPVS #### [employer] [address] [place] [address] Patient Services Technician: Dhaval Rao MD BIOPHYSICAL PROFILE WO NON STRESS TESTINGon 12-07-2021 Radiology Study observation (narrative) [facility]: Urinalysison 12-07-2021 Bilirubin Urine Negative NEGATIVE [facility] Color, UA Yellow Yellow [facility] Glucose, Ur Negative NEGATIVE [facility] Interpretation and review of laboratory results Abnormal [facility] Ketones Ql (U) Negative NEGATIVE [facility] Leukocyte esterase Test strip Ql (U) Negative NEGATIVE [facility] Nitrite, Urine Negative NEGATIVE [facility] pH, UA 6.0 [facility] Protein, UA Negative NEGATIVE [facility] Specific [place], UA >1.030 High [facility] Turbidity UA Clear Clear [facility] Urine Hgb 1+ Abnormal NEGATIVE [facility] Urobilinogen, Urine Normal Normal [facility] Urinalysis, Routineon 2021 Bilirubin, SemiQt,Ur Negative Normal NEG [facility] Comment on above: Performed By: #### U MICAO, UA #### [facility] [address] [place] [id number] Patient Services Technician: Mohamud Lucas MD Blood, Urine 1+ Abnormal NEG [facility] Comment on above: Performed By: #### U MICAO, UA #### [address] [place] [id number] Patient Services Technician: Mohamud Lucas MD Clarity (U) Clear Normal CLEAR [facility] Comment on above: Performed By: #### U MICAO, UA #### [facility] [address] [place] [address] Dr. Zepeda, [facility]83 Patient Services Technician: Mohamud Lucas MD Color (U) Yellow Normal YEL [facility] Comment on above: Performed By: #### U MICAO, UA #### [facility] [address] [place] [address] [place] [address] Patient Services Technician: Mohamud Lucas MD Glucose Ql (U) Negative Normal NEG [facility] Comment on above: Performed By: #### U MICAO, UA #### [facility] [address] [place] [address] Dr[place], [place] [id number] Patient Services Technician: Mohamud Lucas MD Ketones Ql (U) Negative Normal NEG [facility] in Hospital Comment on above: Performed By: #### U MICAO, UA #### [facility] [address] [place] [address] Dr. [place], [place] [id number] Patient Services Technician: Mohamud Lucas MD Leukocyte esterase Test strip Ql (U) Negative Normal NEG [facility] Comment on above: Performed By: #### U MICAO, UA #### [facility] [address] [place] [address] [place] [address] Patient Services Technician: Mohamud Lucas MD Nitrite,Ur Negative Normal NEG [facility] Comment on above: Performed By: #### U MICAO, UA #### [facility] [address] [place] [address] Dr. [place], [place] [phone] Patient Services Technician: Mohamud Lucas MD PH,Ur 6.0 Normal 5.0-9.0 [facility] Comment on above: Performed By: #### U MICAO, UA #### [facility] [address] [place] [address] Dr. [place], [place] [id number] Patient Services Technician: Mohamud Lucas MD Protein Ql (U) Negative Normal NEG [facility] in Hospital Comment on above: Performed By: #### U MICAO, UA #### [facility] [address] [place] [address] Dr. [place], [place] [id number] Patient Services Technician: Mohamud Lucas MD Spec. [place],Ur >1.030 High 1.010-1.020 [facility] Comment on above: Performed By: #### U MICAO, UA #### [facility] [address] [place] [address] Dr. [place], [place] [phone] Patient Services Technician: Mohamud Lucas MD Urobilinogen,Ur Normal Normal NORM [facility] Comment on above: Performed By: #### U MICAO, UA #### [facility] [address] [place] [address] [place] [address] Patient Services Technician: Mohamud Lucas MD Urinalysis,Microon 2 ----- Normal [facility] Comment on above: Performed By: #### U MICAO, UA #### [facility] [address] [place] [address] Patient Services Technician: Mohamud Lucas MD Bacteria 2+ Abnormal NONE [facility] Comment on above: Performed By: #### U MICAO, UA #### [facility] [address] [place] [address] Patient Services Technician: Mohamud Lucas MD Epithelial cells LM Ql (Urine sed) 2 TO 5 Normal 0-25 [facility] Comment on above: Performed By: #### U MICAO, UA #### [facility] [address] [place] [address] [place] [address] Patient Services Technician: Mohamud Lucas MD Urine RBC's 0 TO 2 Normal 0-2 [facility] Comment on above: Performed By: #### U MICAO, UA #### [facility] [address] [place] [address] [place] [address] Patient Services Technician: Mohamud Lucas MD Urine WBC's 2 TO 5 Normal 0-5 [facility] Comment on above: Performed By: #### U MICAO, UA #### [facility] [address] [place] [address] Patient Services Technician: Mohamud Lucas MD Yeast PRESENCE NOTED Abnormal NONE [facility] Comment on above: Performed By: #### U MICAO, UA #### [facility] [address] [place] [address] Patient Services Technician: Mohamud Lucas MD US OB Growthon [...] by Param Garnett on 11/30/2021 0718 Normal [facility] Undercover Agent GBS, External Resulton 11-10 GBS, External Result Positive [employer] Phone: Sandbox Phone: Q - STREPTOCOCCUS,GROUP B CU LTUREon 11-10-2021 STREPTOCOCCUS, GROUP B CULTURE SEE NOTE Abnormal [facility] Undercover Agent Comment on above: Order Comment: [facility] performed at: [email or web address], [employer] [facility], [address] [place] [address], [address] [place] [address], [phone], Burn Table Operator: David Whalen MD [facility] Collection Date/Time: [id number] [facility] Results Received Date/Time: [id number] [facility] Reported Date/Time: [id number] Result Comment: STRE PTOCOCCUS, GROUP B CULTURE Micro Number: [id number] Test Status: Final Specimen Source: Vaginal/anorectal Specimen [...] 5 827W #### [facility] [address] [place] [address] US OB Growthon 10-03-2021 US OB Growth [...] Anterior fundal Grade I Weight (g) by Fognrekmfl94.5 % * These measurements result in an [...] by Param Garnett on 10/04/2021 0920 Normal [facility] Undercover Agent No Panel Informationon 09-22 ABO, External Result Negative [employer] Work Phone: [employer], External Result Negative [employer] Work Phone: [facility] [place] Work Phone: [employer], External Resultson 0 09-21-2021 Rhogam, External Result given [employer] Work Phone: [facility] [employer] Phone: Complete Blood Counton 09-20 Erythrocyte distribution width (RBC) [Ratio] 12.5 % Normal 11.0-15.0 [facility] Undercover Agent Comment on above: Performed By: #### G GLU, CBC #### [facility] [address] [place], [place] [id number] Hematocrit (Bld) [Volume fraction] 32.7 % Low 35.0-47.0 [facility] Undercover Agent Comment on above: Performed By: #### G GLU, CBC #### [facility] [address] [place], [place] [id number] Hemoglobin (Bld) [Mass/Vol] 10.7 g/dL Low 11.6-15.5 [facility] Undercover Agent Comment on above: Performed By: #### G GLU, CBC #### [facility] [address] [place], [place] [id number] MCH (RBC) [Entitic mass] 30.1 pg Normal 27.0-33.0 [facility] Undercover Agent Comment on above: Performed By: #### G GLU, CBC #### [facility] [address] [place], [place] [id number] MCHC (RBC) [Mass/Vol] 32.7 g/dL Normal 32.0-36.0 [facility] Undercover Agent Comment on above: Performed By: #### G GLU, CBC #### [facility] [address] [place], [place] [id number] MCV (RBC) [Entitic vol] 92 fL Normal 80-100 [facility] Undercover Agent Comment on above: Performed By: #### G GLU, CBC #### [facility] [address] [place], [place] [id number] Platelet mean volume (Bld) [Entitic vol] 10.80 fL Normal 7.50-12.50 [facility] Undercover Agent Comment on above: Performed By: #### G GLU, CBC #### [facility] [address] [place], [place] [id number] Platelets (Bld) [#/Vol] 240 10*3/uL Normal 140-400 [facility] Undercover Agent Comment on above: Performed By: #### G GLU, CBC #### [facility] [address] [place], [place] [id number] RBC (Bld) [#/Vol] 3.56 10*6/uL Low 3.90-5.20 [facility] Undercover Agent Comment on above: Performed By: #### G GLU, CBC #### [facility] [address] [place], [place] [id number] RDW-SD 42.5 fL Normal 37.0-50.0 [facility] Specialist Comment on above: Performed By: #### G GLU, CBC #### [facility] [address] [place], [place] [id number] WBC (Bld) [#/Vol] 9.5 10*3/uL Normal 3.8-11.0 [facility] Undercover Agent Comment on above: Performed By: #### G GLU, CBC #### [facility] [address] [place], [place] [id number] Glucose - Gestational Screen on 09-20-2021 Glucose [Mass/Vol] 128 mg/dL Normal <135 [facility] Undercover Agent Comment on above: Result Comment: A va lue of 135 mg/dL or greater indicates the need for a full glucose tolerance test performed in the fasting state to determine if the patient has gestational diabetes. Performed By: #### G GLU, CBC #### [facility] [address] [place], [place] [id number] US OB Growthon 08-29-2021 US OB Growth [...] by Param Garnett on 09/02/2021 0850 Normal [facility] Undercover Agent US OB 2nd/3rd Trimesteron OB 2nd/3rd Trimester [...] 4.7 cm (20 weeks, 2 days) Head Rjtyjgcqblxyf04.5 cm (20 weeks, 0 days) Abdominal Qxaaimfwbaqag08.2 cm (20 weeks, 3 days) Femur Length [...] by Param Garnett on 09/20/2021 0947 Normal [facility] Undercover Agent C. Trachomatis, External Res ulton 05-04-2021 C. Trachomatis, External Result Not detected [employer] Phone: HIV, External Resulton 05-04 HIV, External Result Non-Reactive [employer] Phone: Hepatitis B, External Result on 05-04-2021 Hep B, External Result Non-Reactive [employer] Phone: N. Gonorrhoeae, External Res ulton 05-04-2021 N. Gonorrhoeae, External Result Not detected [employer] Phone: No Panel Informationon 05-04 Sandbox Phone: Sandbox Phone: RPR, External Labon 05-04-20 RPR, External Result Non-Reactive [employer] Phone: Rubella Titer, External Resu lton 05-04-2021 Rubella Titer, External Result immune [employer] Phone: Cytologyon 06-05-2017 Cytology (NOTE)[id number] Y LABORATORIESCONSULTING PATHOLOGISTS [place] [facility]OMIC [id number] [place] [address]. [place], [place] [address] Fax: GYNECOLOGIC CYTOLOGY REPORTPatient Name: PARMINDER MASSEY#: [id number] #[id number]:1: Cervical material, (ThinPrep vial, Imaging-assisted review)Clinical HistoryNo LMP date givenContraceptive useR87.615 Unsatisfactory pap of cervixHigh Risk HPV DNA testing is requested if the diagnosis is ASC-USINTERPRETATIONCervi mariama material, (ThinPrep vial, Imaging-assisted review):Specimen Adequacy: Satisfactory for evaluation. - Endocervical/transformati on zone component present.Descriptive Diagnosis: Negative for intraepithelial lesion or malignancy.Shift in aniceto suggestive of bacterial vaginosis.Cytotechnologis t: HI. Deca, CT(ASCP)Electronically Signed Outcd/06/14/2017 Normal [facility] DHEA Sulfateon 04-09-2017 DHEA Sulfate 107.0 ug/dL Normal 65-380 [facility] Comment on above: Result Comment: [address] [address] Performed By: #### C YTCGP ####[address] [address] Cortisolon 04-06-2017 Cortisol 10.0 ug/dL Normal [facility] Comment on above: Result Comment: Georges isol Reference Range: AM 6.0-18.4 PM 2.7-10.[address] [address] Performed By: #### G ADILENE, CORTI, INSU, TSHX, PROL, FTST, DHES ####[address] [address] Glucoseon 04-06-2017 Glucose mass conc 83 mg/dL Normal 70-99 [facility] Comment on above: Result Comment: [address] [address] Performed By: #### G ADILENE, CORTI, INSU, TSHX, PROL, FTST, DHES ####[address] [address] Insulinon 04-06-2017 Insulin 11.1 mU/L Normal [facility] Comment on above: Performed By: #### G ADILENE, CORTI, INSU, TSHX, PROL, FTST, DHES ####[address] [address] Reference Range Normal [facility] Comment on above: Result Comment: Fast in.6-24.930 min: 20-13874 min: 29-8890 min: 26-61648 min: 22-[address] [address] Performed By: #### G ADILENE, CORTI, INSU, TSHX, PROL, FTST, DHES ####[address] [address] Collection Info. NOT REPORTED Normal [facility] Comment on above: Performed By: #### G ADILENE, CORTI, INSU, TSHX, PROL, FTST, DHES ####[address] [address] Prolactinon 04-06-2017 Prolactin 35.67 ug/L High 4.79-23.30 [facility] Comment on above: Result Comment: The presence of macroprolactin may cause interference in female patients with various endocrinological diseases or during .[address] [address] Performed By: #### G ADILENE, CORTI, INSU, TSHX, PROL, FTST, DHES ####[address] [address] TSH w/reflex to FT4on 2016 Thyroid stimulating hormone (TSH) 1.54 m[IU]/L Normal 0.30-5.00 [facility] Comment on above: Result Comment: [facility] [employer] [address] [place] [address] Performed By: #### G ADILENE, CORTI, INSU, TSHX, PROL, FTST, DHES ####[facility] [address] [place] [address] Testosterone, Freeon 017 Sex Horm Bind Glob 133 nmol/L Normal 30-135 [facility] Comment on above: Performed By: #### G ADILENE, CORTI, INSU, TSHX, PROL, FTST, DHES ####[address] [address] Testosterone 27 ng/dL Normal 20-70 [facility] Comment on above: Performed By: #### G ADILENE, CORTI, INSU, TSHX, PROL, FTST, DHES ####[facility] CenterFriendseeUiisbvayrfcx[address] [place] [address] Testosterone,Free 1.7 pg/mL Normal 0.8-7.4 [facility] Comment on above: Result Comment: The concentration of free testosterone is derived from a mathematical expression based on the constant for the binding of testosterone to albumin and/or sex hormone binding globulin.[facility] [address] [place] [address] Performed By: #### G ADILENE, CORTI, INSU, TSHX, PROL, FTST, DHES ####[facility] [place] [address] US PELVIS COMPLETEon 017 US PELVIS COMPLETE [...] by:MATT Batresigned by:Ethan Armstrong MD04/06/17Final result Normal [facility] Chlamydia/GC DNA, TPon 03-29 Chlamydia Probe, TP Negative Normal NEG [facility] Comment on above: Result Comment: CHLA MYDIA TRACHOMATIS DNA not detected by nucleic acid amplification. Performed By: #### C YTCGP ####[facility] [address] [place] [address] [phone] Gonorrhea Probe, TP Negative Normal NEG [facility] Comment on above: Result Comment: NEIS SERIA GONORRHOEAE DNA not detected by nucleic acid amplification.UN[facility] [employer] [address] [place] [address] [phone] Performed By: #### C YTCGP ####[address] [address] Cytologyon 03-28-2017 Cytology (NOTE)[id number] Y LABORATORIESCONSULTING PATHOLOGISTS [place] [facility]OM[facility] [id number] [place] [phone] Fax: GYNECOLOGIC CYTOLOGY REPORTPatient Name: PARMINDER MASSEY#: [id number] #[id number]:1: Cervical material, (ThinPrep vial, Imaging-assisted review)Clinical HistoryNo LMP date apqlmX92.4 Encounter for screening for malignant neoplasm of [...] t: SZMKM. ALFREDA Larry(ASCP)Electronically Signed Outmk/04/04/2017 Normal [facility] Vaginitis DNA Probeon 2016 Vaginitis DNA [...] of vaginitis/vaginosis. Report Status FINAL 03/28/2017 Normal [facility] Comment on above: Performed By: #### V AGDNA ####[facility] [address] [place], [place] [id number] Vital Signs Date Time Vital Sign Value Performing Clinician Facility 08-13-2024 10:52-0500 Body mass index (BMI) [Ratio] 27.46 kg/m2 Maulik Floro CNM Work Phone: [facility] 08-13-2024 10:52-0500 Body weight 74.84 kg Maulik Floro CNM Work Phone: [facility] 08-13-2024 10:52-0500 Diastolic blood pressure 60 mm[Hg] Maulik Floro CNM Work Phone: [facility] 08-13-2024 10:52-0500 Systolic blood pressure 108 mm[Hg] Maulik Floro CNM Work Phone: [facility] 08-06-2024 11:23-0500 Body mass index (BMI) [Ratio] 27.29 kg/m2 Maulik Floro CNM Work Phone: [facility] 08-06-2024 11:23-0500 Body weight 74.39 kg Maulik Floro CNM Work Phone: [facility] 08-06-2024 11:23-0500 Diastolic blood pressure 80 mm[Hg] Maulik Floro CNM Work Phone: [facility] 08-06-2024 11:23-0500 Systolic blood pressure 120 mm[Hg] Maulik Floro CNM Work Phone: [facility] 07-23-2024 10:07-0500 Body mass index (BMI) [Ratio] 27.29 kg/m2 Maulik Floro CNM Work Phone: [facility] 07-23-2024 10:07-0500 Body weight 74.39 kg Maulik Floro CNM Work Phone: [facility] 07-23-2024 10:07-0500 Diastolic blood pressure 80 mm[Hg] Maulik Floro CNM Work Phone: [facility] 07-23-2024 10:07-0500 Systolic blood pressure 120 mm[Hg] Maulik Floro CNM Work Phone: [facility] 06-25-2024 10:32-0500 Body mass index (BMI) [Ratio] 25.79 kg/m2 Maulik Floro CNM Work Phone: [facility] 06-25-2024 10:32-0500 Body weight 70.31 kg Maulik Floro CNM Work Phone: [facility] 06-25-2024 10:32-0500 Diastolic blood pressure 80 mm[Hg] Maulik Floro CNM Work Phone: [facility] 06-25-2024 10:32-0500 Systolic blood pressure 120 mm[Hg] Maulik Floro CNM Work Phone: [facility] 05-21-2024 09:23-0500 Body mass index (BMI) [Ratio] 24.13 kg/m2 Maulik Floro CNM Work Phone: [facility] 05-21-2024 09:23-0500 Body weight 65.77 kg Maulik Floro CNM Work Phone: [facility] 05-21-2024 09:23-0500 Diastolic blood pressure 80 mm[Hg] Maulik Floro CNM Work Phone: [facility] 05-21-2024 09:23-0500 Systolic blood pressure 120 mm[Hg] Maulik Floro CNM Work Phone: [facility] 04-23-2024 09:26-0400 Body mass index (BMI) [Ratio] 22.63 kg/m2 Maulik Floro CNM Work Phone: [facility] 04-23-2024 09:26-0400 Body weight 61.69 kg Maulik Floro CNM Work Phone: [facility] 04-23-2024 09:26-0400 Diastolic blood pressure 70 mm[Hg] Maulik Floro CNM Work Phone: [facility] 04-23-2024 09:26-0400 Systolic blood pressure 112 mm[Hg] Maulik Floro CNM Work Phone: [facility] 03-19-2024 09:31-0400 Body mass index (BMI) [Ratio] 21.8 kg/m2 Maulik Olgao CNM Work Phone: [facility] 03-19-2024 09:31-0400 Body weight 59.42 kg Maulik Olgao CNM Work Phone: [facility] 03-19-2024 09:31-0400 Diastolic blood pressure 72 mm[Hg] Maulik Olgao CNM Work Phone: [facility] 03-19-2024 09:31-0400 Systolic blood pressure 112 mm[Hg] Maulik Olgao CNM Work Phone: [facility] 12-10-2021 07:07-0400 Body temperature 98.1 [degF] Rodo Simmons APRN - CNM Work Phone: [facility] [employer] 12-10-2021 07:07-0400 Diastolic blood pressure 65 mm[Hg] Rodo Simmons APRN - CNM Work Phone: [facility] [employer] 12-10-2021 07:07-0400 Heart rate 81 /min Rodo Simmons APRN - CNM Work Phone: [facility] [employer] 12-10-2021 07:07-0400 Respiratory rate 18 /min Rodo Simmons APRN - CNM Work Phone: [facility] [employer] 12-10-2021 07:07-0400 Systolic blood pressure 114 mm[Hg] Rodo Simmons APRN - CNM Work Phone: [facility] [employer] 12-08-2021 00:34-0400 SaO2% (BldA) [Mass fraction] 94 % Rodo Mason CNM Work Phone: [facility] [place] 12-07-2021 05:40-0400 Body height 165.1 cm Rodo Mason CNM Work Phone: [facility] [place] 12-07-2021 05:40-0400 Body mass index (BMI) [Ratio] 30.12 kg/m2 Rodo Mason CNM Work Phone: [facility] [place] 12-07-2021 05:40-0400 Body weight 82.1 kg Rodo Simmons APRN - CNNeal Work Phone: [facility] [place] Encounters Encounter Date Encounter Type Care Provider Facility Start: 08-13-2024 End: 08-13-2024 Clinisync Result Encounter Generic External Data Provider [facility] External Department Unsolicited Start: 08-13-2024 End: 08-13-2024 Clinisync Result Encounter Generic External Data Provider [facility] External Department Unsolicited Start: 08-13-2024 End: 08-13-2024 ambulatory MAULIK L FLORO Not Available Start: 08-13-2024 End: 08-13-2024 Subsequent care visit Mauliksaeid Del Toro [facility] Work Phone: [facility] Comment on above: Encounter for superv ision of other normal , third trimester (Primary Dx); History of section Start: 08-06-2024 End: 08-06-2024 Subsequent care visit Maulik Del Toro [facility] Work Phone: [facility] Comment on above: Encounter for superv ision of other normal , third trimester (Primary Dx); History of section Start: 08-06-2024 End: 08-06-2024 ambulatory MAULIK L FLORO Not Available Start: 07-27-2024 End: 07-27-2024 Clinisync [...] Evaluation and management of inpatient RODO P [facility] Start: 12-07-2021 End: 12-10-2021 Evaluation and management of inpatient Rodo Simmons AUTOMOTIVE QUALITY ENGINEER - CNM Work Phone: [facility] Labor and Delivery Comment on above: Third trimester preg corey Start: 06-24-2021 End: 06-24-2021 ambulatory ARINA DEL TORO Facility: Start: 06-06-2017 End: 06-06-2017 Ambulatory [facility] Start: 04-06-2017 End: 04-07-2017 Ambulatory [facility] Start: 03-28-2017 End: 03-29-2017 Ambulatory [facility] Procedures Date Procedure Procedure Detail Performing Clinician Start: 08-13-2024 US OB BPP W NON-STRESS Generic External Data Provider Start: 07-27-2024 ALL CBC WITH AUTO DIFF Narayan Martinez DO Work Phone: Start: 12-08-2021 Blood count complete automated Maulik Del Toro AUTOMOTIVE QUALITY ENGINEER - CNM Work Phone: Start: 12-08-2021 RHO(D) IMMUNE GLOBUL IN, Maulik Del Toro AUTOMOTIVE QUALITY ENGINEER - CN Work Phone: Start: 12-07-2021 SURGICAL PATHOLOGY REPORT Matt Light MD Work Phone: Start: 12-07-2021 Blood count complete auto&auto difrntl wbc Rodo Schmidt AUTOMOTIVE QUALITY ENGINEER - CN Work Phone: Start: 12-07-2021 biophysical pr ofile w/o non-stress testing Rodo Simmons AUTOMOTIVE QUALITY ENGINEER - CN Work Phone: Start: 12-07-2021 Drug tst prsmv instr mnt chem analyzers pr date Rodo Bryce Schmidt AUTOMOTIVE QUALITY ENGINEER - CN Work Phone: Start: 12-07-2021 Urinalysis microscop ic only Rodo Simmons AUTOMOTIVE QUALITY ENGINEER - CN Work Phone: Start: 12-07-2021 Urnls dip stick/tabl et rgnt auto w/o microscopy Rodo Simmons AUTOMOTIVE QUALITY ENGINEER - CN Work Phone: Start: 11-10-2021 GBS, EXTERNAL RESULT Ne storical Provider Start: 09-22-2021 ABO, EXTERNAL RESULT Ne storical Provider Start: 09-22-2021 RH FACTOR, EXTERNAL RESULT Historical Provider Start: 09-21-2021 RHOGAM, EXTERNAL RESULT Historical Provider Start: 05-04-2021 C. TRACHOMATIS, EXTE RNAL RESULT Historical Provider Start: 05-04-2021 HEPATITIS B, EXTERNA L RESULT Historical Provider Start: 05-04-2021 HIV, EXTERNAL RESULT Ne storical Provider Start: 05-04-2021 N. GONORRHOEAE, EXTE RNAL RESULT Historical Provider Start: 05-04-2021 RPR, EXTERNAL RESULT Ne storical Provider Start: 05-04-2021 RUBELLA TITER, EXTER NAL RESULT Historical Provider Start: 06-05-2017 Microscopic observat ion [Identifier] in Cervix by Cyto stain Rodo Simmons AUTOMOTIVE QUALITY ENGINEER - CN Work Phone: Start: 04-06-2017 CORTISOL [...] AM EST Routine [facility] [address] [place] [address] Maulik Del Toro CNM [address] [place], [place] [id number] [facility] Start: 08-27-2024 End: 08-27-2024 Patient encounter procedure 08/27/2024 10:30 AM EST Routine [facility] [address] [place] [address] Maulik Del Toro CNM [address] [place] [address] [facility] Start: 08-19-2024 End: 08-19-2024 Patient encounter procedure 08/19/2024 10:15 AM EST Routine [facility] [address] [place] [address] Maulik Del Toro, CNM [address] [place] [address] [facility] Start: 08-13-2024 End: 08-13-2024 Patient encounter procedure 08/13/2024 10:30 AM EST Routine [facility] [address] [place] [address] Maulik Del Toro, CNM [address] [place] [address] [facility] Start: 08-06-2024 End: 08-06-2024 Patient encounter procedure 08/06/2024 11:30 AM EST Routine [facility] [address] [place] [address] Maulik Del Toro, CNM [address] [place] [address] [facility] Start: 07-23-2024 End: 07-23-2024 Patient encounter procedure 07/23/2024 10:00 AM EST Routine [facility] [address] [place] [address] Maulik Del Toro, CNM [address] [place] [address] [facility] Start: 06-24-2024 End: 06-24-2024 Patient encounter procedure [facility] Comment on above: Arrived Start: 05-21-2024 End: 05-21-2024 Patient encounter procedure [facility] Comment on above: Arrived Start: 04-23-2024 End: 04-23-2024 Professional / ancillary services management 04/23/2024 10:00 AM EDT Ancillary Procedure [facility] [address] [place] [id number] [facility] Start: 04-23-2024 End: 04-23-2024 Patient encounter procedure [facility] Comment on above: Arrived Start: 03-19-2024 End: 03-19-2025 US for US OB 14+ weeks anatomy scan Imaging Routine related condition in second trimester Expected: 03/19/2024, Expires: 03/19/2025 [facility] Work Phone: Comment on above: Expected: 03/19/2024 , Expires: 03/19/2025 Start: 03-16-2024 Influenza vaccination Influenza Vacc ine (#1) [facility] Start: 03-04-2024 Screening for malign ant neoplasm of cervix [facility] Start: 03-16-2022 Influenza vaccination Flu vacc ine (Season Ended) [facility] Start: 2020 [facility] Start: 06-05-2020 Screening for malign ant neoplasm of cervix Pap smear [facility] Start: 2009 DTaP/Tdap/Td vaccine (1 - Tdap) DTaP/Tdap/Td vaccine (1 - Tdap) [facility] Start: 2008 Hepatitis C screening Hepatitis C sc reen [facility] Start: 2005 HIV screening HIV screen [facility] Start: 2002 Depression Screen Depression Screen [facility] Start: 1995 COVID-19 Vaccine (1) COVID-19 Vaccin e (1) [facility] Start: 1991 Varicella vaccine (1 of 2 - 2-dose childhood series) Varicella vaccine (1 of 2 - 2-dose childhood series) [facility] Nonrebreather mask oxygen Nonrebreather mask oxygen Respiratory Care Routine As directed - RT (PRN) until discontinued starting 12/07/2021 [facility] Phone: Comment on above: As directed - RT (UT N) until discontinued starting 12/07/2021 Oxygen therapy [[facility] Data Set] Initiate Oxygen Therapy Protocol Respiratory Care Routine As Needed until discontinued starting 12/07/2021 [employer] Phone: Comment on above: As Needed until disc ontinued starting 12/07/2021 RHOGAM RHOGAM POSTPAR MARCELINO Blood Bank [employer] Label Print 12/08/2021 7:15 AM EDT [facility] Phone: Spirometry panel Incentive drea metry Respiratory Care Routine Every 2hr while awake until discontinued starting 12/08/2021 [facility] Phone: Comment on above: Every 2hr while awak e until discontinued starting 12/08/2021 Immunizations Immunization Date Immunization Notes Care Provider Fa [facility] 12-07-2021 diphtheria, tetanus toxoids and acellular pertussis vaccine, unspecified formulation Rodomiguel Simmons [employer] Work Phone: [facility] Phone: 12-07-2021 measles, mumps and rubella virus vaccine Rodo Troy [employer] Work Phone: [facility] Phone: Payers Date Payer Category Payer Private Health Insurance [employer] [id number] 2022 Unknown [employer] [id number] 2022-Present [address] [place] [address] [id number] 2022 Unknown [id number] 2016 Unknown [id number] 1990 Unknown [id number] 2.16.840.1.385339.3.579.2. 593 1990 Unknown [id number] 2.16.840.1.900794.3.579.2. 173 1990 Unknown [id number] 2.16.840.1.122419.3.579.2. 9 1990 Unknown [id number] 2.16.840.1.908851.3.579.2. 9 1990 Unknown [id number] 2.16.840.1.350724.3.579.2. 9 1990 Unknown [id number] 2.16.840.1.708431.3.579.2. 9 1990 Unknown [id number] 2.16.840.1.726621.3.579.2. 1259 1990 Unknown [id number] 2.16.840.1.664251.3.579.2. 9 1990 Unknown [id number] 2.16.840.1.942604.3.579.2. 9 1990 Unknown [id number] 2.16.840.1.585179.3.579.2. 9 1990 Unknown [id number] 2.16.840.1.673377.3.579.2. 9 1990 Unknown [id number] 2.16.840.1.749479.3.579.2. 9 1990 Unknown [id number] 2.16.840.1.456140.3.579.2. 1259 1990 Unknown [id number] 2.16.840.1.164818.3.579.2. 1259 1990 Unknown [id number] 2.16.840.1.112792.3.579.2. 1259 1959 Unknown [id number] Social History Date Type Detail Facility Start: 03-28-2017 End: 06-20-2023 Tobacco smoking status UTIS Ex-smoker [facility] [employer] Phone: History of tobacco use Cigarette Smoker [facility] [employer] Phone: Start: 03-28-2017 End: 01-29-2024 Cigarettes smoked current (pack per day) - Reported 1 [facility] Phone: Start: 03-28-2017 End: 06-20-2023 Tobacco use and exposure Smokeless tobacco non-user [facility] Phone: Start: 12-07-2021 Alcohol intake Ex-drinker (finding) [facility] Phone: Start: 1990 Sex Assigned At Not on file [facility] [employer] Phone: Start: 11-27-2021 End: 12-07-2021 Exposure to SARS-CoV-2 (event) Not sure [facility] Phone: History of tobacco use Current smoker [...] a routine visit. documented in this encounter [facility] 08-06-2024 History of Present illness Narrative [...] routine visit. documented in this encounter [facility] 07-23-2024 History of Present illness Narrative [...] routine visit. documented in this encounter [facility] 06-25-2024 History of Present illness Narrative [...] routine visit. documented in this encounter [facility] 06-17-2024 Telephone encounter Note Licha arciniega needs lab result that has her blood type on it and Demo sheet faxed to [phone] [facility] 06-17-2024 Miscellaneous Notes Licha arciniega needs lab result that has her blood type on it and Demo sheet faxed to [phone] documented in this encounter [facility] 05-21-2024 History of Present illness Narrative [...] routine visit. documented in this encounter [facility] 04-23-2024 History of Present illness Narrative [...] routine visit. documented in this encounter [facility] 03-19-2024 History of Present illness Narrative [...] routine visit. documented in this encounter [facility] 12-10-2021 Hospital Discharge instructions Lorin Arias, RN - 12/10/2021 Follow-up with your OB doctor as specified. [facility] OB Department phone: Chikis Del Toro, MSN, AUTOMOTIVE QUALITY ENGINEER, CNM [facility] [address] [place] [address] DIET Eat a well balanced diet focusing on foods high in fiber and protein. Drink plenty of fluids especially water. To avoid constipation you may take a mild stool softener as recommended by your doctor or clearance coordinator. ACTIVITY Gradually increase your activity. Resume exercise regimen only after advice by your doctor or clearance coordinator. Avoid lifting anything heavier than a gallon of milk for SIX weeks. Avoid driving until your doctor or clearance coordinator has given their approval. Rise slowly from [...] medications as recommended by your doctor or clearance coordinator for pain If you develop a warm, [...] vitamins as directed by your doctor or clearance coordinator. Refer to the booklet in the folder/binder for more information. If you feel you need more assistance or have questions, please call Vibha Crump IBCLC, microsoft bi consultant, at or the OB department to [...] they become loose or soiled. If used, Thor should be removed by your care provider. [...] your calf. documented in this encounter [facility] [employer] Phone: 12-10-2021 History of Present illness Narrative [...] provide urine sample. documented in this encounter [facility] Phone: Evaluation note Diagnosis Uterine contractions- Primary Third trimester Term intolerance to labor, delivered, current hospitalization Abnormality in heart rate/rhythm, delivered, with or without mention of antepartum condition delivery delivered delivery, without mention of indication, delivered, with or without mention of antepartum condition documented in this encounter [facility] Phone: Evaluation note* Diagnosis Encounter for supervision [...] function of stomach documented in this encounter [facility] HealthcareEvaluation note* Diagnosis Encounter for supervision of other normal , second trimester- Primary Choroid plexus cyst Cerebral cysts History of section Other postprocedural status Choroid plexus cyst Cerebral cysts documented in this encounter [facility]* Diagnosis Encounter for supervision of other normal , third trimester- Primary History of section Other postprocedural status documented in this encounter [facility] HealthcareEvaluation note* Diagnosis Encounter for supervision of other normal , third trimester- Primary History of section Other postprocedural status documented in this encounter [facility] Healthcare Summary Purpose Family History No Family History Records FoundNo Family History Records FoundNo Family History Records FoundNo Family History Records FoundNo Family History Records Found Advance Directives No Advanced Directives Records FoundDocuments on File Type Date 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 ACP-Advance Directive ACP-Power of Director Non Profit Latest Code Status on File Code Status Date Activated Date Inactivated Comments Full Code 12/07/2021 11:34 PM Full Code 12/07/2021 5:30 AM 12/07/2021 11:33 PM Additional Source Comments INFORMATION SOURCE (unrecogn ized section and content) DATE CREATED AUTHOR 01/08/2018 [facility] DATE CREATED AUTHOR AUTHOR'S ORGANIZ ATION 12/02/2021 [facility] DATE CREATED AUTHOR AUTHOR'S ORGANIZ ATION 12/08/2021 [facility] DATE CREATED AUTHOR AUTHOR'S ORGANIZ ATION 01/15/2022 [facility] DATE CREATED AUTHOR AUTHOR'S ORGANIZ ATION 08/18/2024 [facility] d[facility] Specialists EPIC Reason for Visit (unrecogniz ed section and content) Reason Comments Contractions Specialty Diagnoses / Procedures Referred By Contac t Referred To Contact Diagnoses Uterine contractions Term intolerance to labor, delivered, current hospitalization Rodo Schmidt, AUTOMOTIVE QUALITY ENGINEER - [facility] [address] [place] [address] [facility] [address] [place] [address] Referral ID Status Reason Start Date Expiration Date Visits Re quested Visits Authorized [id number] 1 1 Ordered Prescriptions (unrec ognized section [...] Matt RN)0836 (Rate/Dose Verify - Provider: Sherry aMtt RN)0933 (Stopped - Provider: Sherry Matt RN)0957 [...] (Due - Provider: Kaushik Lindsey [facility]) 2099 (Due - Provider: Kaushik Lindsey [facility]) sodium chloride flush 0.9 % injection [...] (Due) 0900 (Due)2099 (Due) 0900 (Due)2099 (Due) cyslvxi-qesgws-upmaf pertussis (BOOSTRIX) injection 0.5 mL 0.5 mL, [...] BE BASED ON THE PRIMARY CLINICAL RECORDS. [employer] provides no warranty or guarantee of the accuracy or completeness of information in this document.
--- NOTE | 2024-08-19 12:47 | US_ITS ---
[place] [id number] Patient Name: ALTON LILLY MRN: [id number] date: 1990 Sex: F Assigned Patient Location: [facility] Current Patient Location: [facility] Accession/Order Number: [id number] Exam Date: 08/19/2024 13:00 Report Date: 08/19/2024 13:46 At the request of: MAULIK KUMAR Procedure: US OB placenta EXAMINATION: US OB placenta HISTORY: fundal pain COMPARISON: Ultrasound OB placenta 07/27/2024 FINDINGS: PLACENTA: Anterior, grade 0. No subchorionic hematoma or abruption. CERVIX LENGTH: Not measured HEART RATE: 149 bpm OTHER: None. US/US OB placenta IMPRESSION: 1. Single live intrauterine . 2. No abnormal or suspicious findings of the placenta. No specific findings to account for patient's symptoms. Electronically authenticated by: DEN SOFIA Date: 08/19/2024 13:46
--- NOTE | 2024-08-19 12:48 | US_ITS ---
[place] [address] Patient Name: ALTON LILLY MRN: [id number] date: 1990 Sex: F Assigned Patient Location: [facility] Current Patient Location: [facility] Accession/Order Number: [id number] Exam Date: 08/19/2024 13:00 Report Date: 08/19/2024 13:47 At the request of: MAULIK KUMAR Procedure: US OB BPP w non-stress EXAMINATION: US OB BPP w non-stress HISTORY:fundal pain COMPARISON: No relevant comparison available. TECHNIQUE: Ultrasound biophysical profile was performed in the radiology department. BREATHING MOVEMENTS: 2 GROSS BODY MOVEMENTS: 2 TONE: 2 QUALITATIVE AMNIOTIC FLUID VOLUME: 2 PRESENTATION: CEPHALIC HEART RATE: 142.86 bpm AMNIOTIC FLUID VOLUME: 15.41 cm GESTATIONAL AGE: 36 weeks 2 days US/US OB BPP w non-stress IMPRESSION: 1. Total biophysical profile score: 8 Electronically authenticated by: DEN SOFIA Date: 08/19/2024 13:47
== END 2024-08-19 14:31 | disposition home or self-care (01) ==
PROVIDERS: Admitting Provider Midwife; PCP Midwife; Visit Provider Midwife
DX: O99.891 Other specified diseases and conditions complicating pregnancy (principal); R10.9 Unspecified abdominal pain; O34.211 Maternal care for low transverse scar from previous cesarean delivery; Z3A.36 36 weeks gestation of pregnancy
CPT/HCPCS: 76815; 76818; G0378; G0379

== ENCOUNTER 2024-08-23 06:30 | Outpatient (OUT) | payer OTHER, SELFPAY ==
--- OUTSIDE RECORDS SUMMARY | 2024-08-23 06:32 | XMS_ITS | CCD ---
Author Organization [facility] Care Team Providers Care It Investment/Portfolio Manager Name Role Phone SONU GONZALEZ Unavailable Unavailable [...] Propensity to adverse reactions to substance 12-07-2021 [facility] Medications Current Medications Medication Drug Class(es) Dates [...] Active docusate sodium 50 mg / sennosides, halfway 8.6 mg oral tablet (1 source) Start: [...] mg/ml injection (2 sources) Start: 12-07-2021 End: 05-25-2022 terbutaline (BRETHINE) injection 0.25 mg Start: 12-07-2021 End: 12-07-2021 terbutaline (BRETHINE) 1 MG/ ML injection Problems Active Problems Problem Classification Problem Date Documented Da te Episodic/Chronic Abdominal pain (5 sources) Right lower quadrant pain; Translations: [Stomach ache] Onset: 04-06-2017 03-19-2024 Episodic Early or threatened labor (2 sources) Uterine [...] 05-21-2024 Chronic Other and delivery including normal (20 sources) Third trimester ; Translations: [Encounter for supervision of normal , unspecified, third trimester] Onset: 12-07-2021 Resolved: 12-10-2021 Episodic Residual codes; unclassified (2 sources) Gestation period, 36 weeks; Translations: [36 weeks gestation of ] 08-19-2024 Episodic Unclassified (1 source) Unspecified dyspareunia; Translations: [Unspecified dyspareunia] Onset: 04-06-2017 Viral infection (1 source) COVID-19; Translations: [COVID-19] Onset: 06-28-2021 Past or Other Problems Problem Classification Problem Date Documented Date Episodic/Chronic Other complications of (4 sources) Other viral [...] Facility US OB BPP W NON-STRESS on 08-19-2024 [place] [address] Ultrasound Report Signed Patient: ALTON DAVIS MR#: [id number] : 1990 Acct:[id number] Age/Sex: 34 / F ADM Date: Loc: [facility] 255-[address]: MAULIK DEL TORO APRN, CNM Ordering Physician: MAULIK DEL TORO APRN, CNM Date of Service: 08/19/24 Procedure(s): US OB BPP w non-stress Accession Number(s): [id number] cc: MAULIK DEL TORO APRN, CNM [place] [address] Patient Name: ALTON DAVIS MRN: [id number]:[id number] date: 1990 Sex: F Assigned Patient Location: [facility] Current Patient Location: [facility] Accession/Order Number: [id number] Exam Date: 08/19/2024 13:00 Report Date: 08/19/2024 13:47 At the request of: MAULIK DEL TORO Procedure: US OB BPP w non-stress EXAMINATION: US OB BPP w non-stress HISTORY:fundal pain COMPARISON: No relevant comparison available. TECHNIQUE: Ultrasound biophysical profile was performed in the radiology department. BREATHING MOVEMENTS: 2 GROSS BODY MOVEMENTS: 2 TONE: 2 QUALITATIVE AMNIOTIC FLUID VOLUME: 2 PRESENTATION: CEPHALIC HEART RATE: 142.86 bpm AMNIOTIC FLUID VOLUME: 15.41 cm GESTATIONAL AGE: 36 weeks 2 days US/US OB BPP w non-stress IMPRESSION: 1. Total biophysical profile score: 8 Electronically authenticated by: DEN VASQUEZ Date: 08/19/2024 13:47 Dictated By: Den Vasquez M.D. Signed By: 08/19/24 135 DD/ 134 TD/TT: Highway Painter Helper: [facility] Radiology, Radiolognorm gary MD - 08/19/2024 [place] [address] Ultrasound Report Signed Patient: ALTON DAVIS MR#: [id number] : 1990 Acct:[id number] Age/Sex: 34 / F ADM Date: Loc: [facility] 255-[address]: MAULIK DEL TORO APRN, CNM Ordering Physician: MAULIK DEL TORO APRN, CNM Date of Service: 08/19/24 Procedure(s): US OB BPP w non-stress Accession Number(s): [id number] cc: MAULIK DEL TORO APRN, CNM [place] [address] Patient Name: ALTON DAVIS MRN: [facility]:[id number] date: 1990 Sex: F Assigned Patient Location: [facility] Current Patient Location: [facility] Accession/Order Number: [id number] Exam Date: 08/19/2024 13:00 Report Date: 08/19/2024 13:47 At the request of: MAULIK DEL TORO Procedure: US OB BPP w non-stress EXAMINATION: US OB BPP w non-stress HISTORY:fundal pain COMPARISON: No relevant comparison available. TECHNIQUE: Ultrasound biophysical profile was performed in the radiology department. BREATHING MOVEMENTS: 2 GROSS BODY MOVEMENTS: 2 TONE: 2 QUALITATIVE AMNIOTIC FLUID VOLUME: 2 PRESENTATION: CEPHALIC HEART RATE: 142.86 bpm AMNIOTIC FLUID VOLUME: 15.41 cm GESTATIONAL AGE: 36 weeks 2 days US/US OB BPP w non-stress IMPRESSION: 1. Total biophysical profile score: 8 Electronically authenticated by: DEN VASQUEZ Date: 08/19/2024 13:47 Dictated By: Den Vasquez M.D. Signed By: 08/19/24 1350 DD/ 1347 TD/TT: Highway Painter Helper: [facility] Radiology Study observation (narrative) [facility] US OB BPP W NON-STRESS Ordered By: Radiologist Radiology on 08-19-2024 [facility] Work Phone: US OB PLACENTAon 08-19-2024 [place] [address] Ultrasound Report Signed Patient: ALTON DAVIS MR#: [id number] : 1990 Acct:[id number] Age/Sex: 34 / F ADM Date: Loc: [facility] 255-[address]: MAULIK DEL TORO APRN, CNM Ordering Physician: MAULIK DEL TORO APRN, CNM Date of Service: 08/19/24 Procedure(s): US OB placenta Accession Number(s): [id number] cc: MAULIK DEL TORO APRN, CNM [place] [id number] Patient Name: ALTON DAVIS MRN: [facility]:[id number] date: 1990 Sex: F Assigned Patient Location: [facility] Current Patient Location: [facility] Accession/Order Number: [id number] Exam Date: 08/19/2024 13:00 Report Date: 08/19/2024 13:46 At the request of: MAULIK DEL TORO Procedure: US OB placenta EXAMINATION: US OB placenta HISTORY: fundal pain COMPARISON: Ultrasound OB placenta 07/27/2024 FINDINGS: PLACENTA: Anterior, grade 0. No subchorionic hematoma or abruption. CERVIX LENGTH: Not measured HEART RATE: 149 bpm OTHER: None. US/US OB placenta IMPRESSION: 1. Single live intrauterine . 2. No abnormal or suspicious findings of the placenta. No specific findings to account for patient's symptoms. Electronically authenticated by: DEN VASQUEZ Date: 08/19/2024 13:46 Dictated By: Den Vasquez M.D. Signed By: 08/19/24 1349 DD/ 1346 TD/TT: Highway Painter Helper: [facility] Radiology, Radiologi MD cookie - 08/19/2024 [place] [address] Ultrasound Report Signed Patient: ALTON DAVIS MR#: [id number] : 1990 Acct:[id number] Age/Sex: 34 / F ADM Date: Loc: [facility] 255-[address]: MAULIK DEL TORO APRN, CNM Ordering Physician: MAULIK DEL TORO APRN, CNM Date of Service: 08/19/24 Procedure(s): US OB placenta Accession Number(s): [id number] cc: MAULIK DEL TORO APRN, CNM [place] [address] Patient Name: ALTON DAVIS MRN: [id number]:[id number] date: 1990 Sex: F Assigned Patient Location: [facility] Current Patient Location: [facility] Accession/Order Number: [id number] Exam Date: 08/19/2024 13:00 Report Date: 08/19/2024 13:46 At the request of: MAULIK DEL TORO Procedure: US OB placenta EXAMINATION: US OB placenta HISTORY: fundal pain COMPARISON: Ultrasound OB placenta 07/27/2024 FINDINGS: PLACENTA: Anterior, grade 0. No subchorionic hematoma or abruption. CERVIX LENGTH: Not measured HEART RATE: 149 bpm OTHER: None. US/US OB placenta IMPRESSION: 1. Single live intrauterine . 2. No abnormal or suspicious findings of the placenta. No specific findings to account for patient's symptoms. Electronically authenticated by: DEN VASQUEZ Date: 08/19/2024 13:46 Dictated By: Den Vasquez M.D. Signed By: 08/19/24 1349 DD/ 1346 TD/TT: Highway Painter Helper: [facility] Radiology Study observation (narrative) [facility] US OB PLACENTAOrdered By: Ra rubio Radiology on 08-19-2024 [facility] Work Phone: US OB BPP W NON-STRESS on 08-13-2024 [place] [address] Ultrasound Report Signed Patient: ALTON DAVIS MR#: [id number] : 1990 Acct:[id number] Age/Sex: 34 / F ADM Date: 08/13/24 Loc: [facility] 258-[address]: Narayan Martinez D.O. Ordering Physician: Narayan Martinez D.O. Date of Service: 08/13/24 Procedure(s): US OB BPP w non-stress Accession Number(s): [id number] cc: MAULIK DEL TORO APRN, CHAN; Narayan Martinez D.O. [place] [address] Patient Name: ALTON DAVIS MRN: [facility]:[id number] date: 1990 Sex: F Assigned Patient Location: [facility] Current Patient Location: [facility] Accession/Order Number: [id number] Exam Date: 08/13/2024 09:15 Report Date: 08/13/2024 [...] M.D. Signed By: 08/13/24945 DD/ 3 TD/TT: Highway Painter Helper: [facility] Radiology, Radiologi MD cookie - 08/13/2024 [place] [address] Ultrasound Report Signed Patient: ALTON DAVIS MR#: [id number] : 1990 Acct:[id number] Age/Sex: 34 / F ADM Date: 08/13/24 Loc: [facility] 258-[address]: Narayan Martinez D.O. Ordering Physician: Narayan Martinez D.O. Date of Service: 08/13/24 Procedure(s): US OB BPP w non-stress Accession Number(s): [id number] cc: MAULIK DEL TORO APRN, CNM; Narayan Martinez D.O. [place] [address] Patient Name: ALOTN DAVIS MRN: [facility]:[id number] date: 1990 Sex: F Assigned Patient Location: [facility] Current Patient Location: [facility] Accession/Order Number: [id number] Exam Date: 08/13/2024 09:15 Report Date: 08/13/2024 [...] M.D. Signed By: 08/13/24945 DD/ 3 TD/TT: Highway Painter Helper: [facility] Radiology Study observation (narrative) [facility] US OB BPP W NON-STRESS Ordered By: Radiologist Radiology on 08-13-2024 [facility] Work Phone: ALL CBC WITH AUTO DIFFon BASOPHILS ABSOLUTE AUTO 0 [facility] Basophils/100 WBC (Bld) 0.2 % 0.2 - 2.0 % [facility] Eosinophils/100 WBC (Bld) 0.2 % Low 0.9 - 7.0 % [facility] Erythrocyte distribution width (RBC) [Ratio] 12.6 % 11.0 - 15.0 % [facility] Hematocrit (Bld) [Volume fraction] 33.1 % Low 36.0 - 48.0 % [facility] Hemoglobin (Bld) [Mass/Vol] 11.1 g/dL Low 12.0 - 16.0 g/dL [facility] IMMATURE GRANULOCYTES ABS AUTO 0.16 High [facility] Immature granulocytes/100 WBC (Bld) 1.1 % High 0.0 - 0.5 % [facility] Interpretation and review of laboratory results Abnormal [facility] LYMPHOCYTES ABSOLUTE AUTO 1.5 [facility] Lymphocytes/100 WBC (Bld) 10.3 % Low 20.5 - 60.0 % [facility] MCH (RBC) [Entitic mass] 30.6 pg 26.7 - 34.0 pg [facility] MCHC (RBC) [Mass/Vol] 33.5 g/dL 29.9 - 35.2 g/dL [facility] MCV (RBC) [Entitic vol] 91.2 fL 81.0 - 99.0 fL [facility] MONOCYTES ABSOLUTE AUTO 0.9 High [facility] Monocytes/100 WBC (Bld) 6.3 % 1.7 - 12.0 % [facility] NEUTROPHILS ABSOLUTE AUTO 11.8 High [facility] Neutrophils/100 WBC (Bld) 81.9 % High 43.0 - 75.0 % [facility] Platelet mean volume (Bld) [Entitic vol] 10.2 fL 9.5 - 13.5 fL [facility] EO # 0 [facility] PLT 224 [facility] RBC 3.63 Low [facility] WBC 14.4 High [facility] US for pregnancyon 4 TITLE OF EXAM: [...] report is generated using voice recognition reporting ([employer]). On occasion PowerScribe erroneously drops words from [...] report is generated using voice recognition reporting ([employer] Inccribe). On occasion PowerScribe erroneously drops words from the report or replaces the spoken word with similar sounding words. Please call with any questions/concerns regarding this report.* Dictated and transcribed 06/05/24dpd This report has been electronically signed and approved by the interpreting radiologist. [employer] XDC US for pregnancyOrdered By: Yordan Duran on 06-06-2024 [facility] Work Phone: US OB LIMITED 1+ FETUSESon [...] report is generated using voice recognition reporting ([employer]). On occasion [employer] erroneously drops words from the report or replaces the spoken word with similar sounding words. Please call with any questions/concerns regarding this report.* Dictated and transcribed 06/05/24/dpd This report has been electronically signed and approved by the interpreting radiologist. Normal Not Available US for pregnancyon Radiology Study observation (narrative) [facility] US OB 14+ WEEKS ANATOMY SCAN on [...] 2.8 cm. Yolk sac diameter 0.3 cm. [place] rump length is 1.5 cm. heart rate [...] SURGICAL PATHOLOGY CONSULTATION Patient Name: ALTON DAVIS [facility] Rec: [id number] Path Number: [id number] [facility] ANATOMIC PATHOLOGY [address] [place] [id number] [facility] BIOPHYSICAL PROFILE WO NON STRESS [...] Ajit Warner MD 12/09/21 Final result Normal [facility] Biophysical profile score 8/8. KUNAL 7.1. The findings were sent to the Radiology Results Communication Center at 10:15 am on 12/07/2021 to be communicated to a licensed caregiver. [facility] EXAMINATION: BIOPHYSICAL PROFILE WITHOUT NON-STRESS [...] fluid index 7.1 with MVP 2.8 cm. [facility] Ajit Warner MD - 12/09/2021 [...] to be communicated to a licensed caregiver. [employer] Phone: BIOPHYSICAL PROFILE WO NON STRESS TESTINGOrdered By: Ajit Warner on 12-09-2021 [facility]ITALK[facility] Phone: CBCon 12-08-2021 Erythrocyte distribution width (RBC) [Ratio] 14.3 % Normal 11.8-14.4 [facility] Comment on above: Performed By: #### C BC #### [facility] [address] [place] [address] [place] [address] Ballet Professor: Mohamud Lucas MD Hematocrit (Bld) [Volume fraction] 26.3 % Low 36.3-47.1 [facility] Comment on above: Performed By: #### C BC #### [address] [place] [address] Ballet Professor: Mohamud Lucas MD Hemoglobin (Bld) [Mass/Vol] 8.5 g/dL Low 11.9-15.1 [facility] Comment on above: Performed By: #### C BC #### [address] [place] [address] Ballet Professor: Mohamud Lucas MD MCH (RBC) [Entitic mass] 27.0 pg Normal 25.2-33.5 [facility] Comment on above: Performed By: #### C BC #### [address] [place] [address] Ballet Professor: Mohamud Lucas MD MCHC (RBC) [Mass/Vol] 32.3 g/dL Normal 28.4-34.8 [facility] Comment on above: Performed By: #### C BC #### [facility] [address] [place] [address] Ballet Professor: Mohamud Lucas MD MCV (RBC) [Entitic vol] 83.5 fL Normal 82.6-102.9 [facility] Comment on above: Performed By: #### C BC #### [facility] [address] [place] [address] Ballet Professor: Mohamud Lucas MD NRBC Automated 0.0 per 100 WBC Normal 0.0 [facility] Comment on above: Performed By: #### C BC #### [address] [place] [address] Ballet Professor: Mohamud Lucas MD Platelet mean volume (Bld) [Entitic vol] 11.1 fL Normal 8.1-13.5 [facility] Comment on above: Performed By: #### C BC #### [address] [place], [place] [id number] Ballet Professor: Mohamud Lucas MD Platelets (Bld) [#/Vol] 219 10*3/uL Normal 138-453 [facility] Comment on above: Performed By: #### C BC #### [facility] [address] [place] [address] Dr. [place], [place] [phone] Ballet Professor: Mohamud Lucas MD RBC (Bld) [#/Vol] 3.15 10*6/uL Low 3.95-5.11 [facility] Comment on above: Performed By: #### C BC #### [address] [place], [place] [phone] Ballet Professor: Mohamud Lucas MD WBC (Bld) [#/Vol] 20.6 10*3/uL High 3.5-11.3 [facility] Comment on above: Performed By: #### C BC #### [facility] [address] [place] [address] Ballet Professor: Mohamud Lucas MD Hematocrit (Bld) [Volume fraction] 26.3 % Low 36.3 - 47.1 % [facility] Hemoglobin.gastroin testinal spec 1 Ql (Stl) 8.5 g/dL Low 11.9 - 15.1 g/dL [facility] Interpretation and review of laboratory results Abnormal [facility] MCH (RBC) [Entitic mass] 27.0 pg 25.2 - 33.5 pg [facility] MCHC (RBC) [Mass/Vol] 32.3 g/dL 28.4 - 34.8 g/dL [facility] MCV (RBC) [Entitic vol] 83.5 fL 82.6 - 102.9 fL [facility] NRBC Automated 0.0 0.0 per 100 WBC [facility] Platelet distribution width (Bld) [Ratio] 14.3 % 11.8 - 14.4 % [facility] Platelet mean volume (Bld) [Entitic vol] 11.1 fL 8.1 - 13.5 fL [facility] Platelets (Bld) [#/Vol] 219 10*3/uL [facility] RBC (Bld) [#/Vol] 3.15 10*6/uL Low 3.95 - 5.1 1 m/uL [facility] WBC (Bld) [#/Vol] 20.6 10*3/uL High [facility] RhIg Workup (RhoGam)on 12-08 RhIg Workup (RhoGam) Blood Component Type MANUFACTURED PRODUCT Units Ordered 1 ABO/Rh(D) A NEGATIVE Antibody Screen NEGATIVE History Check NO PREVIOUS HISTORY Rhig Eligibility Patient Is A Candidate For Injection Eugenie NEGATIVE Du Antigen NOT TESTED Unit Number [id number] Blood Component Type RHIG Unit Division 00 Status of Unit REL FROM ALLOC Transfusion Status OK TO TRANSFUSE Normal [facility] Comment on above: Performed By: #### [facility] #### [facility] [address] [place] [address] Ballet Professor: Mohamud Lcuas MD CBC auto differentialon 11-14 Absolute Eos # 0.08 [facility] Absolute Immature Granulocyte 0.08 [facility] Absolute Lymph # 1.81 [facility] Absolute Letcher # 0.88 [facility] Basophils (Bld) [#/Vol] 0.04 10*3/uL [facility] Basophils/100 WBC (Bld) 0 % 0 - 2 % [facility] Eosinophils/100 WBC (Bld) 1 % 1 - 4 % [facility] Hematocrit (Bld) [Volume fraction] 32.8 % Low 36.3 - 47.1 % [facility] Hemoglobin.gastroin testinal spec 1 Ql (Stl) 10.3 g/dL Low 11.9 - 15.1 g/dL [facility] Immature granulocytes/100 WBC (Bld) 1 % High 0 [facility] Interpretation and review of laboratory results Abnormal [facility] Lymphocytes/100 WBC (Bld) 15 % Low 24 - 43 % [facility] MCH (RBC) [Entitic mass] 26.5 pg 25.2 - 33.5 pg [facility] MCHC (RBC) [Mass/Vol] 31.4 g/dL 28.4 - 34.8 g/dL [facility] MCV (RBC) [Entitic vol] 84.5 fL 82.6 - 102.9 fL [facility] Monocytes/100 WBC (Bld) 7 % 3 - 12 % [facility] NRBC Automated 0.0 0.0 per 100 WBC [facility] Platelet distribution width (Bld) [Ratio] 14.2 % 11.8 - 14.4 % [facility] Platelet mean volume (Bld) [Entitic vol] 11.9 fL 8.1 - 13.5 fL [facility] Platelets (Bld) [#/Vol] 259 10*3/uL [facility] RBC (Bld) [#/Vol] 3.88 10*6/uL Low 3.95 - 5.1 1 m/uL [facility] Segmented neutrophils/100 WBC (Bld) 76 % High 36 - 65 % [facility] Segs Absolute 9.01 High [facility] WBC (Bld) [#/Vol] 11.9 10*3/uL High [facility] CBC with Diffon 12-07-2021 Abs. Basophil 0.04 k/uL Normal 0.00-0.20 [facility] Comment on above: Performed By: #### C DP #### [facility] [address] [place] [address] [place] [address] Ballet Professor: Mohamud Lucas MD Abs.Imm.Granulocyte 0.08 k/uL Normal 0.00-0.30 [facility] Comment on above: Performed By: #### C DP #### [address] [place], [place] [phone] Ballet Professor: Mohamud Lucas MD Abs.Neutrophil (Seg) 9.01 k/uL High 1.50-8.10 [facility] Comment on above: Performed By: #### C DP #### [address] [place], [place] [id number] Ballet Professor: Mohamud Lucas MD Basophils/100 WBC (Bld) 0 % Normal 0-2 [facility] Comment on above: Performed By: #### C DP #### [facility] [address] [place] [address] Dr. [place], [place] [phone] Ballet Professor: Mohamud Lucas MD Eosinophils (Bld) [#/Vol] 0.08 10*3/uL Normal 0.00-0.44 [facility] Comment on above: Performed By: #### C DP #### [address] [place], [place] [phone] Ballet Professor: Mohamud Lucas MD Eosinophils/100 WBC (Bld) 1 % Normal 1-4 [facility] Comment on above: Performed By: #### C DP #### [facility] [address] [place], [place] [id number] Ballet Professor: Mohamud Lucas MD Erythrocyte distribution width (RBC) [Ratio] 14.2 % Normal 11.8-14.4 [facility] Comment on above: Performed By: #### C DP #### [facility] [address] [place], [place] [phone] Ballet Professor: Mohamud Lucas MD Hematocrit (Bld) [Volume fraction] 32.8 % Low 36.3-47.1 [facility] Comment on above: Performed By: #### C DP #### [facility] [address] [place], [facility]83 Ballet Professor: Mohamud Lucas MD Hemoglobin (Bld) [Mass/Vol] 10.3 g/dL Low 11.9-15.1 [facility] Comment on above: Performed By: #### C DP #### [address] [place], [place] [phone] Ballet Professor: Mohamud Lucas MD Immature granulocytes/100 WBC (Bld) 1 % High 0 [facility] Comment on above: Performed By: #### C DP #### [facility] [address] [place], [facility]83 Ballet Professor: Mohamud Lucas MD Lymphocytes (Bld) [#/Vol] 1.81 10*3/uL Normal 1.10-3.70 [facility] Comment on above: Performed By: #### C DP #### [facility] [address] [place], [place] [phone] Ballet Professor: Mohamud Lucas MD Lymphocytes/100 WBC (Bld) 15 % Low 24-43 [facility] Comment on above: Performed By: #### C DP #### [facility] [address] [place] [address] Ballet Professor: Mohamud Lucas MD MCH (RBC) [Entitic mass] 26.5 pg Normal 25.2-33.5 [facility] Comment on above: Performed By: #### C DP #### [facility] [address] [place] [address] [place] [address] Ballet Professor: Mohamud Lucas MD MCHC (RBC) [Mass/Vol] 31.4 g/dL Normal 28.4-34.8 [facility] Comment on above: Performed By: #### C DP #### [address] [place] [address] Ballet Professor: Mohamud Lucas MD MCV (RBC) [Entitic vol] 84.5 fL Normal 82.6-102.9 [facility] Comment on above: Performed By: #### C DP #### [address] [place], [place] [phone] Ballet Professor: Mohamud Lucas MD Monocytes (Bld) [#/Vol] 0.88 10*3/uL Normal 0.10-1.20 [facility] Comment on above: Performed By: #### C DP #### [facility] [address] [place] [address] Dr. [place], [place] [id number] Ballet Professor: Mohamud Lucas MD Monocytes/100 WBC (Bld) 7 % Normal 3-12 [facility] Comment on above: Performed By: #### C DP #### [facility] [address] [place] [address] [place] [address] Ballet Professor: Mohamud Lucas MD Neutrophil (Seg) 76 % High 36-65 [facility] Comment on above: Performed By: #### C DP #### [facility] [address] [place] [address] [place] [address] Ballet Professor: Mohamud Lucas MD NRBC Automated 0.0 per 100 WBC Normal 0.0 [facility] Comment on above: Performed By: #### C DP #### [facility] [address] [place], [place] [phone] Ballet Professor: Mohamud Lucas MD Platelet mean volume (Bld) [Entitic vol] 11.9 fL Normal 8.1-13.5 [facility] Comment on above: Performed By: #### C DP #### [facility] [address] [place], [facility]83 Ballet Professor: Mohamud Lucas MD Platelets (Bld) [#/Vol] 259 10*3/uL Normal 138-453 [facility] Comment on above: Performed By: #### C DP #### [facility] [address] [place], [place] [phone] Ballet Professor: Mohamud Lucas MD RBC (Bld) [#/Vol] 3.88 10*6/uL Low 3.95-5.11 [facility] Comment on above: Performed By: #### C DP #### [facility] [address] [place], [facility]83 Ballet Professor: Mohamud Lucas MD WBC (Bld) [#/Vol] 11.9 10*3/uL High 3.5-11.3 [facility] Comment on above: Performed By: #### C DP #### [facility] [address] [place], [facility]83 Ballet Professor: Mohamud Lucas MD DRUG SCREEN MULTI URINEon Amphetamine Screen, Ur Negative NEGATIVE [facility] Barbiturate Screen, Ur Negative NEGATIVE [facility] Benzodiazepine Screen, Urine Negative NEGATIVE [facility] Buprenorphine Urine Negative NEGATIVE [facility] Cannabinoid Scrn, Ur Negative NEGATIVE [facility] Cocaine Metabolite, Urine Negative NEGATIVE [facility] Methadone Screen, Urine Negative NEGATIVE [facility] Methamphetamine, Urine Negative NEGATIVE [facility] Opiates, Urine Negative NEGATIVE [facility] Oxycodone Screen, Ur Negative NEGATIVE [facility] Phencyclidine, Urine Negative NEGATIVE [facility] Propoxyphene, Urine Negative NEGATIVE [facility] Tricyclic Antidepressants, Urine Negative NEGATIVE [facility] Comment on above: Drug screen results are to be used for medical purposes only. All positive results are unconfirmed. Testing for employment or legal uses should be sent to a reference laboratory for confirmation. [facility] Drug Scr, Abuse, Uron 2021 Amphetamine(s),Ur Negative Normal NEG [facility] Comment on above: Performed By: #### D AU #### [facility] [address] [place] [address] [place] [address] Ballet Professor: Mohamdu Lucas MD Barbiturate(s),Ur Negative Normal NEG [facility] Comment on above: Performed By: #### D AU #### [facility] [address] [place] [address] Dr. [place] [phone] Ballet Professor: Mohamud Lucas MD Benzodiazepine(s) Negative Normal NEG [facility] Comment on above: Performed By: #### D AU #### [facility] [address] [place] [address] Dr. [place] [phone] Ballet Professor: Mohamud Lucas MD Buprenorphrine, Ur Negative Normal NEG [facility] Comment on above: Performed By: #### D AU #### [facility] [address] [place] [address] Dr. [place] [phone] Ballet Professor: Mohamud Lucas MD Cannabinoid(s),Ur Negative Normal NEG [facility] Comment on above: Performed By: #### D AU #### [facility] [address] [place] [address] [place] [address] Ballet Professor: Mohamud Lucas MD Cocaine Metabolite Negative Normal [facility] Comment on above: Performed By: #### D AU #### [facility] [address] [place] [address] [place] [address] Ballet Professor: Mohamud Lucas MD Methadone Ql (U) Negative Normal NEG [facility] Comment on above: Performed By: #### D AU #### [facility] [address] [place], [place] [phone] Ballet Professor: Mohamud Lucas MD Methamphetamine, Ur Negative Normal NEG [facility] Comment on above: Performed By: #### D AU #### [facility] [address] [place], [place] [phone] Ballet Professor: Mohamud Lucas MD Opiate(s), Ur Negative Normal NEG [facility] Comment on above: Performed By: #### D AU #### [facility] [address] [place] [address] Dr. [place], [place] [phone] Ballet Professor: Mohamud Lucas MD Oxycodone, Urine Negative Normal NEG [facility] Comment on above: Performed By: #### D AU #### [facility] [address] [place] [address] [place] [address] Ballet Professor: Mohamud Lucas MD Phencyclidine, Ur Negative Normal [facility] Comment on above: Performed By: #### D AU #### [facility] [address] [place] [address] Dr. [place], [place] [phone] Ballet Professor: Mohamud Lucas MD Propoxyphene,Urine Negative Normal NEG [facility] Comment on above: Performed By: #### D AU #### [facility] [address] [place], [place] [phone] Ballet Professor: Mohamud Lucas MD Tricyclic antidepressants Screen Ql (U) Negative Normal [facility] Comment on above: Result Comment: Drug screen results are to be used for medical purposes only. All positive results are unconfirmed. Testing for employment or legal uses should be sent to a reference laboratory for confirmation. Performed By: #### D AU #### [facility] [address] [place] [address] Dr. [place], [place] [phone] Ballet Professor: Mohamud Lucas MD Microscopic Urinalysison - [facility] Bacteria, UA 2+ Abnormal None [facility] Epithelial Cells UA 2 TO 5 [facility] Interpretation and review of laboratory results Abnormal [facility] RBC, UA 0 TO 2 [facility] WBC, UA 2 TO 5 [facility] Yeast, UA PRESENCE NOTED Abnormal None [facility] OPERATIVE REPORTon 2 OPERATIVE REPORT [address] [address] OPERATIVE REPORT PATIENT NAME: ALTON DAVIS : 1990 MED REC NO: [id number] ROOM: 0208 ACCOUNT NO: [id number] ADMIT DATE: 12/07/2021 PROVIDER: Matt Light MD [...] section, low transverse uterine segment. ANESTHESIA: Epidural. WASH HOUSE WORKER: Maulik Del Toro. ESTIMATED BLOOD LOSS: 600 [...] was extended in a semilunar fashion with trim master operator's fingers. head was elevated and turned. [...] a running imbricating interlocking fashion. A few [id number]-siqpe sutures were placed along the central inferior [...] above that were mentioned. MATT LIGHT MD [id number] Doc#: [id number] CC: Maulik Del Toro [facility] Surgical Pathologyon 022 Surgical Pathology (NOTE) -- Diagnosis -- PLACENTA, DELIVERED: -THIRD TRIMESTER PLACENTA WITH THREE-VESSEL CORD WITH SQUAMOUS METAPLASIA OF AMNION SURFACE. -MEMBRANES WITH MECONIUM LADEN MACROPHAGES. -PLACENTAL DISC WITH FOCAL MILD ACUTE INFLAMMATION OF CHORIONIC PLATE AND SCATTERED MECONIUM LADEN MACROPHAGES IN CHORIONIC PLATE. Mohamud Lucas M.D. Electronically Signed Out yanely/12/09/2021 Clinical Information Operative Findings: PLACENTA Operation Performed: [...] SURGICAL PATHOLOGY CONSULTATION Patient Name: ALTON DAVIS [facility] Rec: [id number] Path Number: [id number] [employer] [facility] ANATOMIC PATHOLOGY [address] [place] [phone] [facility] Comment on above: Performed By: #### P PPVS #### [facility] [address] [place] [address] [phone] Ballet Professor: Dhaval Rao MD BIOPHYSICAL PROFILE WO NON STRESS TESTINGon 12-07-2021 Radiology Study observation (narrative) [employer] Work Phone: Urinalysison 12-07-2021 Bilirubin Urine Negative NEGATIVE [employer] [facility] [employer] Color, UA Yellow Yellow [employer] [facility] [employer] [facility] [employer] Glucose, Ur Negative NEGATIVE [employer] [facility] Interpretation and review of laboratory results Abnormal [facility] Ketones Ql (U) Negative NEGATIVE [employer] [facility] [employer] Leukocyte esterase Test strip Ql (U) Negative NEGATIVE [facility] Nitrite, Urine Negative NEGATIVE [facility] pH, UA 6.0 [facility] Protein, UA Negative NEGATIVE [facility] Specific [place], UA >1.030 High [facility] Turbidity UA Clear Clear [facility] Urine Hgb 1+ Abnormal NEGATIVE [facility] Urobilinogen, Urine Normal Normal [facility] Urinalysis, Routineon 2021 Bilirubin, SemiQt,Ur Negative Normal NEG [facility] Comment on above: Performed By: #### U MICAO, UA #### [facility] [address] [place] [address] Dr. [place], [facility]83 Ballet Professor: Mohamud Lucas MD Blood, Urine 1+ Abnormal NEG [facility] Comment on above: Performed By: #### U MICAO, UA #### [facility] [address] [place] [address] Dr. [place] [phone] Ballet Professor: Mohamud Lucas MD Clarity (U) Clear Normal CLEAR [facility] Comment on above: Performed By: #### U MICAO, UA #### [address] [place] [phone] Ballet Professor: Mohamud Lucas MD Color (U) Yellow Normal YEL [facility] Comment on above: Performed By: #### U MICAO, UA #### [facility] [address] [place], [facility]83 Ballet Professor: Mohamud Lucas MD Glucose Ql (U) Negative Normal NEG [facility] in Hospital Comment on above: Performed By: #### U MICAO, UA #### [facility] [address] [place] [address] Dr. [place] [phone] Ballet Professor: Mohamud Lucas MD Ketones Ql (U) Negative Normal NEG [facility] in Hospital Comment on above: Performed By: #### U MICAO, UA #### [facility] [address] [place] [address] Dr. [place], [place] [phone] Ballet Professor: Mohamud Lucas MD Leukocyte esterase Test strip Ql (U) Negative Normal NEG [facility] Comment on above: Performed By: #### U MICAO, UA #### [facility] [address] [place], [place] [phone] Ballet Professor: Mohamud Lucas MD Nitrite,Ur Negative Normal NEG [facility] Comment on above: Performed By: #### U MICAO, UA #### [facility] [address] [place], [place] [phone] Ballet Professor: Mohamud Lucas MD PH,Ur 6.0 Normal 5.0-9.0 [facility] Comment on above: Performed By: #### U MICAO, UA #### [address] [place], [place] [phone] Ballet Professor: Mohamud Lucas MD Protein Ql (U) Negative Normal NEG [facility] Comment on above: Performed By: #### U MICAO, UA #### [address] [place] [address] Ballet Professor: Mohamud Lucas MD Spec. [place],Ur >1.030 High 1.010-1.020 [facility] Comment on above: Performed By: #### U MICAO, UA #### [address] [place], [facility]83 Ballet Professor: Mohamud Lucas MD Urobilinogen,Ur Normal Normal NORM [facility] Comment on above: Performed By: #### U MICAO, UA #### [address] [place], [place] [phone] Ballet Professor: Mohamud Lucas MD Urinalysis,Microon 2 ----- Normal [facility] Comment on above: Performed By: #### U MICAO, UA #### [facility] [address] [place] [address] Ballet Professor: Mohamud Lucas MD Bacteria 2+ Abnormal NONE [facility] Comment on above: Performed By: #### U MICAO, UA #### [facility] [address] [place], [place] [phone] Ballet Professor: Mohamud Lucas MD Epithelial cells LM Ql (Urine sed) 2 TO 5 Normal 0-25 [facility] Comment on above: Performed By: #### U MICAO, UA #### [facility] [address] [place] [id number] Ballet Professor: Mohamud Lucas MD Urine RBC's 0 TO 2 Normal 0-2 [facility] Comment on above: Performed By: #### U MICAO, UA #### [facility] [address] [place] [id number] Ballet Professor: Mohamud Lucas MD Urine WBC's 2 TO 5 Normal 0-5 [facility] Comment on above: Performed By: #### U MICAO, UA #### [facility] [address] [place] [address] Ballet Professor: Mohamud Lucas MD Yeast PRESENCE NOTED Abnormal [facility] Comment on above: Performed By: #### U MICAO, UA #### [facility] [address] [place], [facility]83 Ballet Professor: Mohamud Lucas MD US OB Growthon 11-29-2021 OB Growth FINDINGS: Comparison made with prior [...] by Param Garnett on 11/30/2021 0718 Normal [facility] Chart Collector GBS, External Resulton 11-10 GBS, External Result Positive [employer] Phone: [facility] [employer] Phone: Q - STREPTOCOCCUS,GROUP B CU LTUREon 11-10-2021 STREPTOCOCCUS, GROUP B CULTURE SEE NOTE Abnormal [facility] Chart Collector Comment on above: Order Comment: [facility] Testing performed at: [employer], [address] [place] [address], [address] [place] [address], [phone], Workers Compensation Claims Analyst: David Whalen MD [facility] Collection Date/Time: [id number] [facility] Results Received Date/Time: [facility] Reported Date/Time: [id number] Result Comment: STRE PTOCOCCUS, GROUP B CULTURE Micro Number: [id number] Test Status: Final Specimen Source: Vaginal/anorectal Specimen [...] 5 [id number] #### [facility] [address] [place] [address] US OB Growthon 10-03-2021 US OB Growth [...] Anterior fundal Grade I Weight (g) by Ictipffbqs09.5 % * These measurements result in an [...] by Param Garnett on 10/04/2021 0920 Normal [facility] Chart Collector No Panel Informationon 09-22 ABO, External Result Negative [employer] Work Phone: [employer] Factor, External Result Negative [employer] Work Phone: [employer] Work Phone: Rhogam, External Resultson 0 09-21-2021 Rhogam, External Result given [employer] Phone: [employer] Phone: Complete Blood Counton 09-20 Erythrocyte distribution width (RBC) [Ratio] 12.5 % Normal 11.0-15.0 [place] Chart Collector Comment on above: Performed By: #### G GLU, CBC #### [facility] [address] [place], [place] [id number] Hematocrit (Bld) [Volume fraction] 32.7 % Low 35.0-47.0 [facility] Specialist Comment on above: Performed By: #### G GLU, CBC #### [facility] [address] [place], [place] [id number] Hemoglobin (Bld) [Mass/Vol] 10.7 g/dL Low 11.6-15.5 [facility] Specialist Comment on above: Performed By: #### G GLU, CBC #### [facility] [address] [place], [place] [id number] MCH (RBC) [Entitic mass] 30.1 pg Normal 27.0-33.0 [facility] Specialist Comment on above: Performed By: #### G GLU, CBC #### [facility] [address] [place], [place] [id number] MCHC (RBC) [Mass/Vol] 32.7 g/dL Normal 32.0-36.0 [facility] Specialist Comment on above: Performed By: #### G GLU, CBC #### [facility] [address] [place], [place] [id number] MCV (RBC) [Entitic vol] 92 fL Normal 80-100 [facility] Specialist Comment on above: Performed By: #### G GLU, CBC #### [facility] [address] [place], [place] [id number] Platelet mean volume (Bld) [Entitic vol] 10.80 fL Normal 7.50-12.50 [facility] Specialist Comment on above: Performed By: #### G GLU, CBC #### [facility] [address] [place], [place] [id number] Platelets (Bld) [#/Vol] 240 10*3/uL Normal 140-400 [facility] Specialist Comment on above: Performed By: #### G GLU, CBC #### [facility] [address] [place], [place] [id number] RBC (Bld) [#/Vol] 3.56 10*6/uL Low 3.90-5.20 [place] Chart Collector Comment on above: Performed By: #### G GLU, CBC #### [facility] [address] [place], [place] [id number] RDW-SD 42.5 fL Normal 37.0-50.0 [facility] Chart Collector Comment on above: Performed By: #### G GLU, CBC #### [facility] [address] [place], [place] [id number] WBC (Bld) [#/Vol] 9.5 10*3/uL Normal 3.8-11.0 [facility] [place] Chart Collector Comment on above: Performed By: #### G GLU, CBC #### [facility] [address] [place], [place] [id number] Glucose - Gestational Screen on 09-20-2021 Glucose [Mass/Vol] 128 mg/dL Normal <135 [facility] [place] Chart Collector Comment on above: Result Comment: A va lue of 135 mg/dL or greater indicates the need for a full glucose tolerance test performed in the fasting state to determine if the patient has gestational diabetes. Performed By: #### G GLU, CBC #### [facility] [address] [place], [place] [id number] US OB Growthon 08-29-2021 US OB Growth [...] by Param Garnett on 09/02/2021 0850 Normal [facility] Chart Collector US OB 2nd/3rd Trimesteron OB 2nd/3rd Trimester [...] 4.7 cm (20 weeks, 2 days) Head Buccjmowtupwx82.5 cm (20 weeks, 0 days) Abdominal Jrxhvzfetlcnx79.2 cm (20 weeks, 3 days) Femur Length [...] by Param Garnett on 09/20/2021 0947 Normal [facility] Chart Collector C. Trachomatis, External Res ulton 05-04-2021 C. Trachomatis, External Result Not detected [employer] Phone: HIV, External Resulton 05-04 HIV, External Result Non-Reactive [facility] [employer] Phone: Hepatitis B, External Result on 05-04-2021 Hep B, External Result Non-Reactive [employer] Phone: N. Gonorrhoeae, External Res ulton 05-04-2021 N. Gonorrhoeae, External Result Not detected [employer] Phone: No Panel Informationon 05-04 [employer] Phone: [employer] Phone: RPR, External Labon 05-04-20 RPR, External Result Non-Reactive [employer] Phone: Rubella Titer, External Resu lton 05-04-2021 Rubella Titer, External Result immune [employer] Phone: Cytologyon 06-05-2017 Cytology (NOTE)[id number] Y LABORATORIESCONSULTING PATHOLOGISTS [facility] [id number] [place] [phone] Fax: GYNECOLOGIC CYTOLOGY REPORTPatient Name: PARMINDER MASSEY#: [id number] #[id number]:1: Cervical material, (ThinPrep vial, Imaging-assisted review)Clinical HistoryNo LMP date givenContraceptive useR87.615 Unsatisfactory pap of cervixHigh Risk HPV DNA testing is requested if the diagnosis is ASC-USINTERPRETATIONCervi mariama material, (ThinPrep vial, Imaging-assisted review):Specimen Adequacy: Satisfactory for evaluation. - Endocervical/transformati on zone component present.Descriptive Diagnosis: Negative for intraepithelial lesion or malignancy.Shift in aniceto suggestive of bacterial vaginosis.Cytotechnologis t: DAFNE. ALFREDA Willis(ASCP)Electronically Signed Outcd/06/14/2017 Normal [facility] DHEA Sulfateon 04-09-2017 DHEA Sulfate 107.0 ug/dL Normal 65-380 [facility] Comment on above: Result Comment: [address] [address] Performed By: #### C YTCGP ####[address] [address] Cortisolon 04-06-2017 Cortisol 10.0 ug/dL Normal [facility] Comment on above: Result Comment: Georges isol Reference Range: AM 6.0-18.4 PM 2.7-10.[address] [address] Performed By: #### G ADILENE, CORTI, INSU, TSHX, PROL, FTST, DHES ####[address] [address] Glucoseon 04-06-2017 Glucose mass conc 83 mg/dL Normal 70-99 [facility] Comment on above: Result Comment: [facility] [employer] [address] [place] [address] Performed By: #### G ADILENE, CORTI, INSU, TSHX, PROL, FTST, DHES ####[address] [address] Insulinon 04-06-2017 Insulin 11.1 mU/L Normal [facility] Comment on above: Performed By: #### G ADILENE, CORTI, INSU, TSHX, PROL, FTST, DHES ####[address] [address] Reference Range Normal [facility] Comment on above: Result Comment: Fast in.6-24.930 min: 20-55665 min: 29-8890 min: 26-56118 min: 22-[address] [address] Performed By: #### G ADILENE, CORTI, INSU, TSHX, PROL, FTST, DHES ####[address] [address] Collection Info. NOT REPORTED Normal [facility] Comment on above: Performed By: #### G ADILENE, CORTI, INSU, TSHX, PROL, FTST, DHES ####[address] [address] Prolactinon 04-06-2017 Prolactin 35.67 ug/L High 4.79-23.30 [facility] Comment on above: Result Comment: The presence of macroprolactin may cause interference in female patients with various endocrinological diseases or during .[facility] [address] [place] [address] Performed By: #### G ADILENE, CORTI, INSU, TSHX, PROL, FTST, DHES ####[address] [address] TSH w/reflex to FT4on 2016 Thyroid stimulating hormone (TSH) 1.54 m[IU]/L Normal 0.30-5.00 [facility] Comment on above: Result Comment: [facility] [address] [place] [address] Performed By: #### G ADILENE, CORTI, INSU, TSHX, PROL, FTST, DHES ####[address] [address] Testosterone, Freeon 017 Sex Horm Bind Glob 133 nmol/L Normal 30-135 [facility] Comment on above: Performed By: #### G ADILENE, CORTI, INSU, TSHX, PROL, FTST, DHES ####[facility] [address] [place] [address] Testosterone 27 ng/dL Normal 20-70 [facility] Comment on above: Performed By: #### G ADILENE, CORTI, INSU, TSHX, PROL, FTST, DHES ####[facility] Y[address] [place] [address] Testosterone,Free 1.7 pg/mL Normal 0.8-7.4 [facility] Comment on above: Result Comment: The concentration of free testosterone is derived from a mathematical expression based on the constant for the binding of testosterone to albumin and/or sex hormone binding globulin.[address] [phone] ([phone] Performed By: #### G ADILENE, CORTI, INSU, TSHX, PROL, FTST, DHES ####[address] [id number] US PELVIS COMPLETEon 017 US PELVIS COMPLETE [...] by:MATT Batresigned by:Ethan Armstrong MD04/06/17Final result Normal [facility] Chlamydia/GC DNA, TPon 03-29 Chlamydia Probe, TP Negative Normal NEG [facility] Comment on above: Result Comment: CHLA MYDIA TRACHOMATIS DNA not detected by nucleic acid amplification. Performed By: #### C YTCGP ####[place] [address] [place] [address] Gonorrhea Probe, TP Negative Normal NEG [facility] Comment on above: Result Comment: NEIS SERIA GONORRHOEAE DNA not detected by nucleic acid amplification.[facility] [address] [place] [address] [phone] ([phone] Performed By: #### C YTCGP ####[facility] [address] [place] [address] Cytologyon 03-28-2017 Cytology (NOTE)[id number] Y LABORATORIESCONSULTING PATHOLOGISTS CORPORATIONANATOMIC [id number] [place], [place] [phone] Fax: GYNECOLOGIC CYTOLOGY REPORTPatient Name: PARMINDER MASSEY#: [id number] #[id number]: Cervical material, (ThinPrep vial, Imaging-assisted review)Clinical HistoryNo LMP date bjuncW08.4 Encounter for screening for malignant neoplasm of [...] bacterial vaginosis.Cytotechnologis t: SZMKM. ALFREDA Larry(ASCP)Electronically Signed Out/04/04/2017 Normal [facility] Vaginitis DNA Probeon 2016 Vaginitis [...] of vaginitis/vaginosis. Report Status FINAL 03/28/2017 Normal [facility] Comment on above: Performed By: #### V AGDNA ####[facility] [address] [place] [address] Vital Signs Date Time Vital Sign Value Performing Clinician Facility 08-19-2024 10:49-0500 Body mass index (BMI) [Ratio] 27.72 kg/m2 Maulik Floro CNM Work Phone: [facility] 08-19-2024 10:49-0500 Body weight 75.57 kg Maulik Floro CNM Work Phone: [facility] 08-19-2024 10:49-0500 Diastolic blood pressure 70 mm[Hg] Maulik Floro CNM Work Phone: [facility] 08-19-2024 10:49-0500 Systolic blood pressure 118 mm[Hg] Maulik Floro CNM Work Phone: [facility] 08-13-2024 10:52-0500 Body mass index (BMI) [Ratio] 27.46 kg/m2 Maulik Floro CNM Work Phone: [facility] 08-13-2024 10:52-0500 Body weight 74.84 kg Maulik Floro CNM Work Phone: [facility] 08-13-2024 10:52-0500 Diastolic blood pressure 60 mm[Hg] Maulik Floro CNM Work Phone: [facility] 08-13-2024 10:52-0500 Systolic blood pressure 108 mm[Hg] Maulik Floro CNM Work Phone: [facility] 08-06-2024 11:23-0500 Body mass index (BMI) [Ratio] 27.29 kg/m2 Maulik Floro CNM Work Phone: [facility] 08-06-2024 11:23-0500 Body weight 74.39 kg Maulik Floro CNM Work Phone: [facility] 08-06-2024 11:23-0500 Diastolic blood pressure 80 mm[Hg] Maulik Floro CNM Work Phone: [facility] 08-06-2024 11:23-0500 Systolic blood pressure 120 mm[Hg] Maulik Floro CNM Work Phone: [facility] 07-23-2024 10:07-0500 Body mass index (BMI) [Ratio] 27.29 kg/m2 Maulik Floro CNM Work Phone: [facility] 07-23-2024 10:07-0500 Body weight 74.39 kg Maulik Floro CNM Work Phone: [facility] 07-23-2024 10:07-0500 Diastolic blood pressure 80 mm[Hg] Maulik Floro CNM Work Phone: [facility] 07-23-2024 10:07-0500 Systolic blood pressure 120 mm[Hg] Maulik Floro CNM Work Phone: [facility] 06-25-2024 10:32-0500 Body mass index (BMI) [Ratio] 25.79 kg/m2 Maulik Floro CNM Work Phone: [facility] 06-25-2024 10:32-0500 Body weight 70.31 kg Maulik Floro CNM Work Phone: [facility] 06-25-2024 10:32-0500 Diastolic blood pressure 80 mm[Hg] Maulik Floro CNM Work Phone: [facility] 06-25-2024 10:32-0500 Systolic blood pressure 120 mm[Hg] Maulik Floro CNM Work Phone: [facility] 05-21-2024 09:23-0500 Body mass index (BMI) [Ratio] 24.13 kg/m2 Maulik Floro CNM Work Phone: [facility] 05-21-2024 09:23-0500 Body weight 65.77 kg Maulik Floro CNM Work Phone: [facility] 05-21-2024 09:23-0500 Diastolic blood pressure 80 mm[Hg] Maulik Floro CNM Work Phone: [facility] 05-21-2024 09:23-0500 Systolic blood pressure 120 mm[Hg] Maulik Floro CNM Work Phone: [facility] 04-23-2024 09:26-0400 Body mass index (BMI) [Ratio] 22.63 kg/m2 Maulik Floro CNM Work Phone: [facility] 04-23-2024 09:26-0400 Body weight 61.69 kg Maulik Floro CNM Work Phone: [facility] 04-23-2024 09:26-0400 Diastolic blood pressure 70 mm[Hg] Maulik Floro CNM Work Phone: [facility] 04-23-2024 09:26-0400 Systolic blood pressure 112 mm[Hg] Maulik Floro CNM Work Phone: [facility] 03-19-2024 09:31-0400 Body mass index (BMI) [Ratio] 21.8 kg/m2 Maulik Floro CNM Work Phone: [facility] 03-19-2024 09:31-0400 Body weight 59.42 kg Maulik Floro CNM Work Phone: [facility] 03-19-2024 09:31-0400 Diastolic blood pressure 72 mm[Hg] Maulik Floro CNM Work Phone: [facility] 03-19-2024 09:31-0400 Systolic blood pressure 112 mm[Hg] Maulik Floro CNM Work Phone: [facility] 12-10-2021 07:07-0400 Body temperature 98.1 [degF] Rodo Simmons CHASER HELPER - CNM Work Phone: [facility] [employer] [facility] 12-10-2021 07:07-0400 Diastolic blood pressure 65 mm[Hg] Rodo Simmons APRN - CNM Work Phone: [facility] 12-10-2021 07:07-0400 Heart rate 81 /min Rodo Simmons CHASER HELPER - CNM Work Phone: [facility] 12-10-2021 07:07-0400 Respiratory rate 18 /min Rodo Mason CNM Work Phone: [employer] 12-10-2021 07:07-0400 Systolic blood pressure 114 mm[Hg] Rodo Mason CNM Work Phone: [employer] 12-08-2021 00:34-0400 SaO2% (BldA) [Mass fraction] 94 % Rodo Mason CNM Work Phone: [facility] 12-07-2021 05:40-0400 Body height 165.1 cm Rodo Mason CNM Work Phone: [facility] 12-07-2021 05:40-0400 Body mass index (BMI) [Ratio] 30.12 kg/m2 Rodo Mason CNM Work Phone: [employer] 12-07-2021 05:40-0400 Body weight 82.1 kg Rodo Mason CNM Work Phone: [employer] Encounters Encounter Date Encounter Type Care Provider Facility Start: 08-19-2024 End: 08-19-2024 Bamboo flowsheet Maulik Zeeshan Leigho CNM Work Phone: [facility] Start: 08-19-2024 End: 08-21-2024 Bamboo flowsheet Maulik Zeeshan Leigho CNM Work Phone: [facility] Start: 08-19-2024 End: 08-19-2024 Clinisync Result Encounter Maulik Zeeshan Leigho CNM Work Phone: [facility] Unsolicited Start: 08-19-2024 End: 08-21-2024 External Result Encounter Maulik Zeeshan Leigho CNM Work Phone: [facility] Unsolicited Start: 08-19-2024 End: 08-19-2024 ambulatory MAULIK LEIGHO Not Available Start: 08-19-2024 End: 08-19-2024 Subsequent care visit Maulik YOUNG Work Phone: [facility] Comment on above: 36 weeks gestation o f (Primary Dx); Encounter for supervision of other normal , third trimester; History of section; Abdominal discomfort Start: 08-13-2024 End: 08-13-2024 Clinisync Result Encounter Generic External Data Provider [facility] Unsolicited Start: 08-13-2024 End: 08-13-2024 Clinisync Result Encounter Generic External Data Provider [facility] Unsolicited Start: 08-13-2024 End: 08-13-2024 ambulatory MAULIK Zeeshan LEIGHO Not Available Start: 08-13-2024 End: 08-13-2024 Subsequent care visit Maulik YOUNG Work Phone: [facility] Comment on above: Encounter for superv ision of other normal , third trimester (Primary Dx); History of section Start: 08-06-2024 End: 08-06-2024 Subsequent care visit Maulik Del Toro CN Work Phone: [facility] Comment on [...] Start: 07-23-2024 End: 07-23-2024 Bamboo flowsheet Maulik Del Toro CN Work Phone: [facility] Start: 07-23-2024 End: 07-23-2024 Bamboo flowsheet Maulik Leigho CN Work Phone: [facility] Start: 07-23-2024 [...] [facility]-10[facility]2021 [facility] Start: 12-07-2021 End: 12-10-2021 Evaluation and management of inpatient Rodo Simmons CHASER HELPER - CNM Work Phone: [facility] Labor and Delivery Comment on above: Third trimester preg corey Start: 06-24-2021 End: 06-24-2021 ambulatory ARINA LEIGHO Facility: Start: 06-06-2017 End: 06-06-2017 Ambulatory [facility] Start: 04-06-2017 End: 04-07-2017 Ambulatory [facility] Start: 03-28-2017 End: 03-29-2017 [facility] Procedures Date Procedure Procedure Detail Performing Clinician Start: 08-19-2024 US OB BPP W NON-STRESS Maulik L Floro CNM Work Phone: Start: 08-19-2024 US OB PLACENTA Maulik L Floro CNM Work Phone: Start: 08-19-2024 STREPTOCCOUS, GROUP B CULTURE Maulik L Floro CNM Work Phone: Start: 08-13-2024 US OB BPP W NON-STRESS Generic External Data Provider Start: 07-27-2024 ALL CBC WITH AUTO DIFF Narayan Martinez DO Work Phone: Start: 12-08-2021 Blood count complete automated Maulik Olgao CHASER HELPER - CNM Work Phone: Start: 12-08-2021 RHO(D) IMMUNE GLOBUL IN, Maulik Floro CHASER HELPER - CNM Work Phone: Start: 12-07-2021 SURGICAL PATHOLOGY REPORT Matt Light MD Work Phone: Start: 12-07-2021 Blood count complete auto&auto difrntl wbc Rodo Schmidt [facility] Work Phone: Start: 12-07-2021 biophysical pr ofile w/o non-stress testing Rodo Tafoya Simmons [facility] Work Phone: Start: 12-07-2021 Drug tst prsmv instr mnt chem analyzers pr date Rodo Wu Brayan [facility] Work Phone: Start: 12-07-2021 Urinalysis microscop ic only Rodo Simmons [facility] Work Phone: Start: 12-07-2021 Urnls dip stick/tabl et rgnt auto w/o microscopy Rodo Simmons [facility] Work Phone: Start: 11-10-2021 GBS, EXTERNAL RESULT Co storical Provider Start: 09-22-2021 ABO, EXTERNAL RESULT Co storical Provider Start: 09-22-2021 RH FACTOR, EXTERNAL RESULT Historical Provider Start: 09-21-2021 RHOGAM, EXTERNAL RESULT Historical Provider Start: 05-04-2021 C. TRACHOMATIS, EXTE RNAL RESULT Historical Provider Start: 05-04-2021 HEPATITIS B, EXTERNA L RESULT Historical Provider Start: 05-04-2021 HIV, EXTERNAL RESULT Co storical Provider Start: 05-04-2021 N. GONORRHOEAE, EXTE RNAL RESULT Historical Provider Start: 05-04-2021 RPR, EXTERNAL RESULT Co storical Provider Start: 05-04-2021 RUBELLA TITER, EXTER NAL RESULT Historical Provider Start: 06-05-2017 Microscopic observat ion [Identifier] in Cervix by Cyto stain Rodo Simmons [facility] Work Phone: Start: 04-06-2017 CORTISOL TOTAL SONU FRA SER Start: 04-06-2017 DHEA-SULFATE SONU FRASE R Start: 04-06-2017 GLUCOSE, RANDOM SONU FR ASER Start: 04-06-2017 INSULIN, TOTAL SONU DE [...] GONZALEZ H/O: section History of section Maulik Leighashley CNM Work Phone: H/O: section History of section Maulik Zeeshan Leigho CNM Work Phone: H/O: section History of section Maulik Zeeshan Leigho CNM Work Phone: H/O: section History of section Maulik Leigho CNM Work Phone: H/O: section History of section Maulik Zeeshan Leigho CNM Work Phone: H/O: section History of section Maulik Leigho CNM Work Phone: H/O: section History of section Maulik Zeeshan Leigho CNM Work Phone: Plan of Treatment Date Care Activity Detail Author Start: 09-03-2024 End: 09-03-2024 Patient encounter procedure 09/03/2024 10:30 AM EST Routine [facility] [address] [place] [address] Maulik Del Toro CNM [address] [place], [place] [id number] [facility] Start: 08-27-2024 End: 08-27-2024 Patient encounter procedure 08/27/2024 10:30 AM EST Routine [facility] [address] [place] [address] Maulik Del Toro, CNM [address] [place] [address] [facility] Start: 08-19-2024 End: 08-19-2024 Patient encounter procedure 08/19/2024 10:15 AM EST Routine [facility] [address] [facility] [place] [address] Maulik Del Toro, CNM [address] [facility] [place] [address] [facility] Start: 08-13-2024 End: 08-13-2024 Patient encounter procedure 08/13/2024 10:30 AM EST Routine [facility] [address] [facility] [place] [address] Maulik Del Toro, CNM [address] [facility] [place] [address] [facility] Start: 08-06-2024 End: 08-06-2024 Patient encounter procedure 08/06/2024 11:30 AM EST Routine [facility] [address] [facility] [place] [address] Maulik Del Toro, CNM [address] [facility] [place] [address] [facility] Start: 07-23-2024 End: 07-23-2024 Patient encounter procedure 07/23/2024 10:00 AM EST Routine [facility] [address] [facility] [place] [address] Maulik Del Toro, CNM [address] [facility] [place] [address] [facility] Start: 06-24-2024 End: 06-24-2024 Patient encounter procedure [facility] Comment on above: Arrived Start: 05-21-2024 End: 05-21-2024 Patient encounter procedure [facility] Comment on above: Arrived Start: 04-23-2024 End: 04-23-2024 Professional / ancillary services management 04/23/2024 10:00 AM EDT Ancillary Procedure [facility] [address] [place] [id number] [facility] Start: 04-23-2024 End: 04-23-2024 Patient encounter procedure [facility] Comment on above: Arrived Start: 03-19-2024 End: 03-19-2025 US for US OB 14+ weeks anatomy scan Imaging Routine related condition in second trimester Expected: 03/19/2024, Expires: 03/19/2025 [facility] Work Phone: Comment on above: Expected: 03/19/2024 , Expires: 03/19/2025 Start: 03-16-2024 Influenza vaccination Influenza Vacc ine (#1) [facility] Start: 03-04-2024 Screening for malign ant neoplasm of cervix [facility] Start: 03-16-2022 Influenza vaccination Flu vacc ine (Season Ended) [facility] Start: 2020 Screening for malign ant neoplasm of cervix [facility] Start: 06-05-2020 Screening for malign ant neoplasm of cervix Pap smear [facility] Start: 2009 DTaP/Tdap/Td vaccine (1 - Tdap) DTaP/Tdap/Td vaccine (1 - Tdap) [facility] Start: 2008 Hepatitis C screening Hepatitis C sc reen [facility] Start: 2005 HIV screening HIV screen [facility] Start: 2002 Depression Screen Depression Screen [facility] Start: 1995 COVID-19 Vaccine (1) COVID-19 Vaccin e (1) [facility] Start: 1991 Varicella vaccine (1 of 2 - 2-dose childhood series) Varicella vaccine (1 of 2 - 2-dose childhood series) [facility] GBS swab GBS swab Lab Rou burton 36 weeks gestation of Ordered: 08/19/2024 [employer] Work Phone: Comment on above: Ordered: 08/19/2024 Nonrebreather mask oxygen Nonrebreather mask oxygen Respiratory Care Routine As directed - RT (PRN) until discontinued starting 12/07/2021 [employer] Phone: Comment on above: As directed - RT (CA N) until discontinued starting 12/07/2021 Oxygen therapy [[facility] Data Set] Initiate Oxygen Therapy Protocol Respiratory Care Routine As Needed until discontinued starting 12/07/2021 [employer] Phone: Comment on above: As Needed until disc ontinued starting 12/07/2021 RHOGAM RHOGAM POSTPAR MARCELINO Blood Bank [employer] Label Print 12/08/2021 7:15 AM EDT [employer] Phone: Spirometry panel Incentive drea metry Respiratory Care Routine Every 2hr while awake until discontinued starting 12/08/2021 [employer] Phone: Comment on above: Every 2hr while awak e until discontinued starting 12/08/2021 STREPTOCCOUS, GROUP B CULTURE STREPTOCCOUS, GROUP B CULTURE Lab Routine 08/19/2024 11:22 AM EST [employer] Work Phone: Immunizations Immunization Date Immunization Notes Care Provider Fa cili 12-07-2021 diphtheria, tetanus toxoids and acellular pertussis vaccine, unspecified formulation Rodo Simmons CHASER HELPER [employer] Work Phone: [employer] Phone: 12-07-2021 measles, mumps and rubella virus vaccine Rodo [employer] Work Phone: [employer] Phone: Payers Date Payer Category Payer Private Health Insurance [employer] [id number] 2022 Unknown [employer] [id number] 2022-Present [address] [place] [address] [id number] 2022 Unknown [id number] 2016 Unknown [id number] 1990 Unknown [id number] [id number]. 593 1990 Unknown [id number] 2.16.840.1.596846.3.579.2. 173 1990 Unknown [id number] 2.16.840.1.561826.3.579.2. 9 1990 Unknown [id number] 2.16.840.1.218077.3.579.2. 1259 1990 Unknown [id number] 2.16.840.1.741120.3.579.2. 9 1990 Unknown [id number] 2.16.840.1.154331.3.579.2. 1259 1990 Unknown [id number] 2.16.840.1.744831.3.579.2. 1259 1990 Unknown [id number] 2.16.840.1.172155.3.579.2. 1259 1990 Unknown [id number] 2.16.840.1.978882.3.579.2. 9 1990 Unknown [id number] 2.16.840.1.962889.3.579.2. 1258 1990 Unknown [id number] 2.16.840.1.499762.3.579.2. 1258 1990 Unknown [id number] 2.16.840.1.392591.3.579.2. 1258 1990 Unknown [id number] 2.16.840.1.327470.3.579.2. 1258 1990 Unknown [id number] 2.16.840.1.424330.3.579.2. 1258 1990 Unknown [id number] 2.16.840.1.883544.3.579.2. 1258 1990 Unknown [id number] 2.16.840.1.348048.3.579.2. 1258 1959 Unknown [id number] Social History Date Type Detail Facility Start: 03-28-2017 End: 06-20-2023 Tobacco smoking status NYIS Ex-smoker [employer] Phone: History of tobacco use Cigarette Smoker [employer] Phone: Start: 03-28-2017 End: 01-29-2024 Cigarettes smoked current (pack per day) - Reported 1 [employer] Phone: Start: 03-28-2017 End: 06-20-2023 Tobacco use and exposure Smokeless tobacco non-user [employer] Phone: Start: 12-07-2021 Alcohol intake Ex-drinker (finding) [employer] Phone: Start: 1990 Sex Assigned At Not on file [employer] Phone: Start: 11-27-2021 End: 12-07-2021 Exposure to SARS-CoV-2 (event) Not sure [employer] Phone: History of tobacco use Current smoker [facility] Start: 01-29-2024 Alcoholic beverage intake Lifetime non-drinker (finding) [facility] Start: 01-29-2024 Tobacco use panel [facility] Start: 05-21-2023 Alcohol Comment caffeine: 1-2 cups per day [facility] Start: 12-23-2023 [facility] Clinical Notes 12-10-2021 to 08-19-2024 Maulikerin Del Toro, [facility] - 08/19/2024 10:15 AM ESTValerie L Olgao, [facility] - 08/13/2024 10:30 AM ESTValerie L Olgao, [facility] - 08/06/2024 11:30 AM ESTValerie L Olgao, [facility] - 07/23/2024 10:00 AM ESTInstructions Note Date & Type Note Facility 08-19-2024 History of Present illness Narrative Subjective No chief complaint on file. Alton Davis is a 34 y.o. at 36w2d with a working estimated date of delivery of 09/14/2024, by Last Menstrual Period who presents for a routine visit. She denies vaginal bleeding, leakage of fluid, decreased movements, or contractions. Her is complicated by: Abdominal pain and recurrent BPP and NST at [facility] The following portions of the chart were reviewed this encounter and updated as appropriate: Objective Physical Exam weight: 166 lb 9.6 oz Expected Total Weight Gain: 25 lb-35 lb Pregravid BMI: 21.13 BP: 118/70 Labs HEMOGLOBIN Date Value Ref Range Status 06/24/2024 11.7 11.7 - 15.5 g/dL Final HEMATOCRIT Date Value Ref Range Status 06/24/2024 35.3 35.0 - 45.0 % Final Imaging Assessment/Plan Diagnoses and all orders for this visit: 36 weeks gestation of - GBS swab Encounter for supervision of other normal , third trimester History of section Abdominal discomfort- patient is tender and c/o increased pain at the top of her uterus. Unable to obtain fundal height as patient cannot tolerate the touch. I will send her to the hospital for eval and US to assess abdominal wall and placenta. Patient states she takes Tylenol at night and the pain goes away but I don't like to take it that often. Encouraged patient to take it for pain if it helps. If the Tylenol helps, chances are it's musculoskeletal or positioning of babyup against abdominal wall muscle. Continue vitamin. Labs reviewed. GBS taken. Expected mode of delivery repeat section Follow up in 1 week for a routine visit. documented in this encounter [facility] 08-13-2024 History of Present illness Narrative Subjective [...] a routine visit. documented in this encounter [facility] 08-06-2024 History of Present illness Narrative Subjective [...] a routine visit. documented in this encounter [facility] 07-23-2024 History of Present illness Narrative Subjective [...] a routine visit. documented in this encounter [facility] 06-25-2024 History of Present illness Narrative Subjective [...] a routine visit. documented in this encounter [facility] 06-17-2024 Telephone encounter Note Licha arciniega needs lab result that has her blood type on it and Demo sheet faxed to [phone] [facility] 06-17-2024 Miscellaneous Notes Licha arciniega needs lab result that has her blood type on it and Demo sheet faxed to [phone] documented in this encounter [facility] 05-21-2024 History of Present illness Narrative Subjective [...] a routine visit. documented in this encounter [facility] 04-23-2024 History of Present illness Narrative Subjective [...] a routine visit. documented in this encounter [facility] 03-19-2024 History of Present illness Narrative Subjective [...] a routine visit. documented in this encounter [facility] 12-10-2021 Hospital Discharge instructions Lorin Arias RN - 12/10/2021 Follow-up with your OB doctor as specified. [facility] OB Department phone: Chikis Del Toro, MSN, CHASER HELPER, [place] [address] DIET Eat a well balanced diet focusing on foods high in fiber and protein. Drink plenty of fluids especially water. To avoid constipation you may take a mild stool softener as recommended by your doctor or regulatory associate. ACTIVITY Gradually increase your activity. Resume exercise regimen only after advice by your doctor or regulatory associate. Avoid lifting anything heavier than a gallon of milk for SIX weeks. Avoid driving until your doctor or regulatory associate has given their approval. Rise slowly from [...] of harming yourself or your infant. If infant will not stop crying, contact [...] medications as recommended by your doctor or regulatory associate for pain If you develop a warm, [...] vitamins as directed by your doctor or regulatory associate. Refer to the booklet in the folder/binder for more information. If you feel you need more assistance or have questions, please call Vibha Crump IBCLC, eyewear consultant, at or the OB department to [...] your calf. documented [facility] this encounter [facility] Work [facility]: 12-10-2021 History of Present illness [...] updated on POC. Both verbalize understanding. Nelda YOUNGM notified of patients arrival, c/o LOF and [...] urine sample. documented in this encounter [employer] Phone: Evaluation note Diagnosis Uterine contractions- Primary Third trimester Term intolerance to labor, delivered, current hospitalization Abnormality in heart rate/rhythm, delivered, with or without mention of antepartum condition delivery delivered delivery, without mention of indication, delivered, with or without mention of antepartum condition documented in this encounter [facility] GUERRERO [employer] Work Phone: evaluation note* Diagnosis Encounter for [...] [facility] Diagnosis 36 weeks gestation of - Primary Encounter for supervision of other normal , third trimester History of section Other postprocedural status Abdominal discomfort Abdominal pain, unspecified site documented in this encounter [facility] Summary Purpose Family History No Family History Records FoundNo Family History Records FoundNo Family History Records FoundNo Family History Records FoundNo Family History Records Found Advance Directives Documents on File Type Date Recorded Patient Garnett Fixer Expl anation ACP-Advance Directive ACP-Power of Data Acquisition Technician Latest Code Status on File Code Status Date Activated Date Inactivated Comments Full Code 12/07/2021 11:34 PM Full Code 12/07/2021 5:30 AM 12/07/2021 11:33 PM Additional Source Comments INFORMATION SOURCE (unrecogn ized section and content) DATE CREATED AUTHOR 01/08/2018 [facility] DATE CREATED AUTHOR AUTHOR'S ORGANIZ ATION 12/02/2021 [facility] dical Specialist DATE CREATED AUTHOR AUTHOR'S ORGANIZ ATION 12/08/2021 [facility] DATE CREATED AUTHOR AUTHOR'S ORGANIZ ATION 01/15/2022 [facility] DATE CREATED AUTHOR AUTHOR'S ORGANIZ ATION 08/21/2024 [facility] d[facility] Specialists EPIC Reason for Visit (unrecogniz ed section and content) Reason Comments Contractions Specialty Diagnoses / Procedures Referred By Contac t Referred To Contact Diagnoses Uterine contractions Term intolerance to labor, delivered, current hospitalization Rodo Schmidt, CHASER HELPER - CNM [address] [place] [address] [facility] [address] [place] [address] Referral ID Status Reason Start Date Expiration Date Visits Re quested Visits Authorized [id number] 1 1 Ordered Prescriptions (unrec ognized section [...] Prophylaxis, 0700 (New Bag - Provider: Domitila Herzog, NESS)0702 (Rate/Dose Verify - Provider: Sherry Matt RN)0800 [...] RN) 2099 (Due - Provider: Kaushik Lindsey [facility]) 2099 (Due - Provider: Kaushik Lindsey RPH) [...] (Due) 899 (Due)2099 (Due) 899 (Due)2099 (Due) rdukvlw-ibaoma-sutpv pertussis (BOOSTRIX) injection 0.5 mL 0.5 mL, [...] Herzog RN)212 (Given - Provider: Daria Arce, RN) 0418 (Given - Provider: Ena Gilmore, NESS)1429 (Given - Provider: Nataliia York RN)2336 (Given - Provider: Daria Arce, RN) carboprost (HEMABATE) injection 250 mcg 250 [...] BE BASED ON THE PRIMARY CLINICAL RECORDS. [employer] [facility]. provides no warranty or guarantee of the accuracy or completeness of information in this document.
[2024-08-23 09:07] VITALS: BP 96/63; PULSE 97
== END 2024-08-23 09:40 | disposition home or self-care (01) ==
LOC: FBCO 06:30 → FBC 09:03
PROVIDERS: PCP Midwife; Visit Provider Obstetrics & Gynecology
DX: O26.893 Other specified pregnancy related conditions, third trimester (principal); Z3A.36 36 weeks gestation of pregnancy
CPT/HCPCS: 59025

== ENCOUNTER 2024-08-30 10:06 | Outpatient (OUT) | payer OTHER, SELFPAY ==
--- OUTSIDE RECORDS SUMMARY | 2024-08-30 10:09 | XMS_ITS | CCD ---
Author Organization [facility] Care Team Providers Care Jersey Knitter Name Role Phone SONU GONZALEZ Unavailable Unavailable GONZALEZSONU MCNEILL K Unavailable Unavailable GONZALEZSONU MCNEILL K Unavailable [...] Propensity to adverse reactions to substance 12-07-2021 [facility] Medications Current Medications Medication Drug Class(es) Dates Sig (Normalized) Sig (Original) acetaminophen 500 mg oral tablet (2 sources) Start: 12-07-2021 acetaminophen (TYLENOL) tablet 1,000 mg Start: 12-07-2021 End: 12-07-2021 acetaminophen (TYLENOL) tabl et 650 mg azithromycin 250 mg oral tablet (1 source) Macrolide Antimicrobial Start: 08-26-2024 azithromycin (Zithromax) 250 MG tablet Indications: COVID 500 mg on day 1 followed by 250 mg for 4 days 6 tablet 08/26/2024 Active calcium chloride 0.0014 meq/ml / potassium chloride [...] Active docusate sodium 50 mg / sennosides, half-way 8.6 mg oral tablet (1 source) Start: [...] oxyCODONE (ROXICODONE) immediate release tablet 5 mg predniSONE 20 mg oral tablet (1 source) Start: 08-26-2024 predniSONE (Deltasone) 20 MG tablet Indications: COVID , COVID-19 40 mg daily for 5 days 10 tablet 08/26/2024 Active MV & Min w/FA-DHA ( Gummies) 0.18-25 [...] Translations: [Unspecified dyspareunia] Onset: 04-06-2017 Viral infection (2 sources) Disease caused by 2019-nCoV; Translations: [COVID-19] 08-26-2024 Episodic Viral infection (1 source) COVID-19; Translations: [COVID-19] [...] US OB BPP W NON-STRESS on 08-19-2024 [place] [address] Ultrasound Report Signed Patient: ALTON DAVIS MR#: [id number] : 1990 Acct:[id number] Age/Sex: 34 / F ADM Date: Loc: [facility] 255-[address]: MAULIK DEL TORO APRN, CNM Ordering Physician: MAULIK DEL TORO APRN, CNM Date of Service: 08/19/24 Procedure(s): US OB BPP w non-stress Accession Number(s): [id number] cc: MAULIK DEL TORO APRN, CNM [place] [id number] Patient Name: ALTON DAVIS MRN: [id number] date: 1990 Sex: F Assigned Patient Location: [facility] Current Patient Location: [facility] Accession/Order Number: [id number] Exam Date: 08/19/2024 13:00 Report Date: 08/19/2024 [...] By: Den Vasquez M.D. Signed By: 08/19/24 1351 DD/ 1347 TD/TT: Frog Catcher: [facility] Radiology, Radiologi MD cookie - 08/19/2024 [place] [address] Ultrasound Report Signed Patient: ALTON DAVIS MR#: [id number] : 1990 Acct:[id number] Age/Sex: 34 / F ADM Date: Loc: [facility] 255-[address]: MAULIK DEL TORO APRN, CNM Ordering Physician: MAULIK DEL TORO APRN, CNM Date of Service: 08/19/24 Procedure(s): US OB BPP w non-stress Accession Number(s): [id number] cc: MAULIK DEL TORO APRN, CNM [place] [address] Patient Name: ALTON DAVIS MRN: [facility]:[id number] date: 1990 Sex: F Assigned Patient Location: [facility] Current Patient Location: [facility] Accession/Order Number: [id number] Exam Date: 08/19/2024 13:00 Report Date: 08/19/2024 [...] Signed By: 08/19/24 1350 DD/ 1347 TD/TT: Frog Catcher: [facility] Radiology Study observation (narrative) [facility] US OB BPP W NON-STRESS Ordered By: Radiologist Radiology on 08-19-2024 [facility] Work Phone: US OB PLACENTAon 08-19-2024 [place] [address] Ultrasound Report Signed Patient: ALTON DAVIS MR#: [id number] : 1990 Acct:[id number] Age/Sex: 34 / F ADM Date: Loc: [facility] 255-[address]: MAULIK DEL TORO APRN, CNM Ordering Physician: MAULIK DEL TORO APRN, CNM Date of Service: 08/19/24 Procedure(s): US OB placenta Accession Number(s): [id number] cc: MAULIK DEL TORO APRN, CNM [place] [address] Patient Name: ALTON DAVIS MRN: [id number] date: 1990 Sex: F Assigned Patient Location: [facility] Current Patient Location: [facility] Accession/Order Number: [id number] Exam Date: 08/19/2024 13:00 Report Date: 08/19/2024 [...] Signed By: 08/19/24 1349 DD/ 1346 TD/TT: Frog Catcher: [facility] Radiology, Radiologi MD cookie - 08/19/2024 [place] [address] Ultrasound Report Signed Patient: ALTON DAVIS MR#: [id number] : 1990 Acct:[id number] Age/Sex: 34 / F ADM Date: Loc: [facility] 255-[address]: MAULIK DEL TORO APRN, CNM Ordering Physician: MAULIK DEL TORO APRN, CNM Date of Service: 08/19/24 Procedure(s): US OB placenta Accession Number(s): [id number] cc: MAULIK DEL TORO APRN, CNM [place] [phone] Patient Name: ALTON DAVIS MRN: [facility]:[id number] date: 1990 Sex: F Assigned Patient Location: [facility] Current Patient Location: [facility] Accession/Order Number: [id number] Exam Date: 08/19/2024 13:00 Report Date: 08/19/2024 [...] By: Den Vasquez M.D. Signed By: 08/19/24 134 DD/ 134 TD/TT: Frog Catcher: [facility] Radiology Study observation (narrative) [facility] US OB PLACENTAOrdered By: Ra rubio Radiology on 08-19-2024 [facility] Work Phone: US OB BPP W NON-STRESS on 08-13-2024 [place] [address] Ultrasound Report Signed Patient: ALTON DAVIS MR#: [id number] : 1990 Acct:[id number] Age/Sex: 34 / F ADM Date: 08/13/24 Loc: [facility] 258-[address]: Narayan Martinez D.O. Ordering Physician: Narayan Martinez D.O. Date of Service: 08/13/24 Procedure(s): US OB BPP w non-stress Accession Number(s): [id number] cc: MAULIK DEL TORO APRN, CHAN; Narayan Martinez D.O. [place] [address] Patient Name: ALTON DAVIS MRN: [id number] date: 1990 Sex: F Assigned Patient Location: [facility] Current Patient Location: [facility] Accession/Order Number: [id number] Exam Date: 08/13/2024 09:15 Report Date: 08/13/2024 [...] M.D. Signed By: 08/13/24945 DD/ 3 TD/TT: Frog Catcher: [facility] Radiology, Radiologi MD cookie - 08/13/2024 [place] [address] Ultrasound Report Signed Patient: ALTON DAVIS MR#: [id number] : 1990 Acct:[id number] Age/Sex: 34 / F ADM Date: 08/13/24 Loc: [facility] 258-[address]: Narayan Martinez D.O. Ordering Physician: Narayan Martinez D.O. Date of Service: 08/13/24 Procedure(s): US OB BPP w non-stress Accession Number(s): [id number] cc: MAULIK DEL TORO APRN, CNM; Narayan Martinez D.O. [place] [address] Patient Name: ALTON DAVIS MRN: [facility]:[id number] date: 1990 Sex: F Assigned Patient Location: [facility] Current Patient Location: [facility] Accession/Order Number: [id number] Exam Date: 08/13/2024 09:15 Report Date: 08/13/2024 [...] M.D. Signed By: 08/13/24945 DD/ 3 TD/TT: Frog Catcher: [facility] Radiology Study observation (narrative) [facility] US OB BPP W NON-STRESS Ordered By: Radiologist Radiology on 08-13-2024 [facility] Work Phone: ALL CBC WITH AUTO DIFFon BASOPHILS ABSOLUTE AUTO 0 [facility] Basophils/100 WBC (Bld) 0.2 % 0.2 - 2.0 % [facility] Eosinophils/100 WBC (Bld) 0.2 % Low 0.9 - 7.0 % [facility] Erythrocyte distribution width (RBC) [Ratio] 12.6 % 11.0 - 15.0 % [facility] Hematocrit (Bld) [Volume fraction] 33.1 % Low 36.0 - 48.0 % [facility] Hemoglobin (Bld) [Mass/Vol] 11.1 g/dL Low 12.0 - 16.0 g/dL [facility] IMMATURE GRANULOCYTES ABS AUTO 0.16 High [facility] Immature granulocytes/100 WBC (Bld) 1.1 % High 0.0 - 0.5 % [facility] Interpretation and review of laboratory results Abnormal [facility] LYMPHOCYTES ABSOLUTE AUTO 1.5 [facility] Lymphocytes/100 WBC (Bld) 10.3 % Low 20.5 - 60.0 % [facility] MCH (RBC) [Entitic mass] 30.6 pg 26.7 - 34.0 pg [facility] MCHC (RBC) [Mass/Vol] 33.5 g/dL 29.9 - 35.2 g/dL [facility] MCV (RBC) [Entitic vol] 91.2 fL 81.0 - 99.0 fL [facility] MONOCYTES ABSOLUTE AUTO 0.9 High [facility] Monocytes/100 WBC (Bld) 6.3 % 1.7 - 12.0 % [facility] NEUTROPHILS ABSOLUTE AUTO 11.8 High [facility] Neutrophils/100 WBC (Bld) 81.9 % High 43.0 - 75.0 % [facility] Platelet mean volume (Bld) [Entitic vol] 10.2 fL 9.5 - 13.5 fL [facility] EO # 0 [facility] PLT 224 [facility] RBC 3.63 Low [facility] WBC 14.4 High [facility] US for pregnancyon TITLE OF EXAM: [...] report is generated using voice recognition reporting (Fidelis). On occasion BrightNeste erroneously drops words from the report or [...] report is generated using voice recognition reporting (FOODITYcribe). On occasion PowerScribe erroneously drops words from the report or replaces the spoken word with similar sounding words. Please call with any questions/concerns regarding this report.* Dictated and transcribed 06/05/24/dpd This report has been electronically signed and approved by the interpreting radiologist. [facility] for pregnancyOrdered By: Yordan Duran on 06-06-2024 [facility] Work Phone: US OB LIMITED [...] report is generated using voice recognition reporting (BrightNeste). On occasion PowerScribe erroneously drops words from the report or replaces the spoken word with similar sounding words. Please call with any questions/concerns regarding this report.* Dictated and transcribed 06/05/24/dpd This report has been electronically signed and approved by the interpreting radiologist. Normal Not Available US for pregnancyon Radiology Study observation (narrative) [facility] OB 14+ WEEKS ANATOMY SCAN on [...] 2.8 cm. Yolk sac diameter 0.3 cm. Carmen rump length is 1.5 cm. heart rate [...] SURGICAL PATHOLOGY CONSULTATION Patient Name: ALTON DAVIS [facility] Rec: [id number] Path Number: [id number] [facility] [employer] [facility] ANATOMIC PATHOLOGY [address] [place] [address]. [place], [place] [address] [facility] BIOPHYSICAL PROFILE WO NON STRESS TESTINGon 12-09-2021 BIOPHYSICAL PROFILE WO NON STRESS TESTING EXAMINATION: BIOPHYSICAL PROFILE WITHOUT NON-STRESS TEST 12/07/2021 TECHNIQUE: ULTRASOUND BIOPHYSICAL PROFILE WITHOUT NON-STRESS TEST COMPARISON: None available HISTORY: ORDERING SYSTEM PROVIDED HISTORY: check fluid level, please check KUNAL TECHNOLOGIST PROVIDED HISTORY: check fluid level, please check KNUAL FINDINGS: BIOPHYSICAL PROFILE: Tone: 2/2 Gross Body: [...] Ajit Warner MD 12/09/21 Final result Normal [facility] Biophysical profile score 8/8. KUNAL 7.1. The findings were sent to the Radiology Results Communication Center at 10:15 am on 12/07/2021 to be communicated to a licensed caregiver. [facility] RIS CONSOLIDATED EXAMINATION: BIOPHYSICAL PROFILE WITHOUT [...] fluid index 7.1 with MVP 2.8 cm. [facility] Ajit West MD - 12/09/2021 EXAMINATION: [...] to be communicated to a licensed caregiver. [facility] Phone: BIOPHYSICAL PROFILE WO NON STRESS TESTINGOrdered By: Ajit Warner on 12-09-2021 [facility] Phone: CBCon 12-08-2021 Erythrocyte distribution width (RBC) [Ratio] 14.3 % Normal 11.8-14.4 [facility] Comment on above: Performed By: #### C BC #### [facility] [address] [place] [address] Wire Brusher: Mohamud Lucas MD Hematocrit (Bld) [Volume fraction] 26.3 % Low 36.3-47.1 [facility] Comment on above: Performed By: #### C BC #### [facility] [address] [place] [address] Wire Brusher: Mohamud Lucas MD Hemoglobin (Bld) [Mass/Vol] 8.5 g/dL Low 11.9-15.1 [facility] Comment on above: Performed By: #### C BC #### [facility] [address] [place] [address] Wire Brusher: Mohamud Lucas MD MCH (RBC) [Entitic mass] 27.0 pg Normal 25.2-33.5 [facility] Comment on above: Performed By: #### C BC #### [address] [place], [place] [id number] Wire Brusher: Mohamud Lucas MD MCHC (RBC) [Mass/Vol] 32.3 g/dL Normal 28.4-34.8 [facility] Comment on above: Performed By: #### C BC #### [address] [place] [id number] Wire Brusher: Mohamud Lucas MD MCV (RBC) [Entitic vol] 83.5 fL Normal 82.6-102.9 [facility] Comment on above: Performed By: #### C BC #### [address] [place], [place] [id number] Wire Brusher: Mohamud Lucas MD NRBC Automated 0.0 per 100 WBC Normal 0.0 [facility] Comment on above: Performed By: #### C BC #### [address] [place], [facility] Wire Brusher: Mohamud Lucas MD Platelet mean volume (Bld) [Entitic vol] 11.1 fL Normal 8.1-13.5 [facility] Comment on above: Performed By: #### C BC #### [address] [place] [address] Wire Brusher: Mohamud Lucas MD Platelets (Bld) [#/Vol] 219 10*3/uL Normal 138-453 [facility] Comment on above: Performed By: #### C BC #### [facility] [address] [place] [address] Wire Brusher: Mohamud Lucas MD RBC (Bld) [#/Vol] 3.15 10*6/uL Low 3.95-5.11 [facility] Comment on above: Performed By: #### C BC #### [facility] [address] [place] [address] Wire Brusher: Mohamud Lucas MD WBC (Bld) [#/Vol] 20.6 10*3/uL High 3.5-11.3 [facility] Comment on above: Performed By: #### C BC #### [facility] [address] [place] [address] Wire Brusher: Mohamud Lucas MD Hematocrit (Bld) [Volume fraction] 26.3 % Low 36.3 - 47.1 % [facility] Hemoglobin.gastroin testinal spec 1 Ql (Stl) 8.5 g/dL Low 11.9 - 15.1 g/dL [facility] Interpretation and review of laboratory results Abnormal [facility] MCH (RBC) [Entitic mass] 27.0 pg 25.2 - 33.5 pg [facility] MCHC (RBC) [Mass/Vol] 32.3 g/dL 28.4 - 34.8 g/dL [facility] MCV (RBC) [Entitic vol] 83.5 fL 82.6 - 102.9 fL [facility] NRBC Automated 0.0 0.0 per 100 WBC [facility] Platelet distribution width (Bld) [Ratio] 14.3 % 11.8 - 14.4 % [facility] Platelet mean volume (Bld) [Entitic vol] 11.1 fL 8.1 - 13.5 fL [facility] Platelets (Bld) [#/Vol] 219 10*3/uL [facility] RBC (Bld) [#/Vol] 3.15 10*6/uL Low 3.95 - 5.1 1 m/uL [facility] WBC (Bld) [#/Vol] 20.6 10*3/uL High [facility] RhIg Workup (RhoGam)on 12-08 RhIg Workup (RhoGam) Blood Component Type MANUFACTURED PRODUCT Units Ordered 1 ABO/Rh(D) A NEGATIVE Antibody Screen NEGATIVE History Check NO PREVIOUS HISTORY Rhig Eligibility Patient Is A Candidate For Injection Eugenie NEGATIVE Du Antigen NOT TESTED Unit Number [id number] Blood Component Type RHIG Unit Division 00 Status of Unit REL FROM ALLOC Transfusion Status OK TO TRANSFUSE Normal [facility] Comment on above: Performed By: #### R HIGW #### [facility] [address] [place] [address] Wire Brusher: Mohamud Lucas MD CBC auto differentialon 11-14 Absolute Eos # 0.08 [facility] Absolute Immature Granulocyte 0.08 [facility] Absolute Lymph # 1.81 [facility] Absolute Payette # [phone] [facility] Basophils (Bld) [#/Vol] 0.04 10*3/uL [facility] Basophils/100 WBC (Bld) 0 % 0 - 2 % [facility] Eosinophils/100 WBC (Bld) 1 % 1 - 4 % [facility] Hematocrit (Bld) [Volume fraction] 32.8 % Low 36.3 - 47.1 % [facility] Hemoglobin.gastroin testinal spec 1 Ql (Stl) 10.3 g/dL Low 11.9 - 15.1 g/dL [facility] Immature granulocytes/100 WBC (Bld) 1 % High 0 [facility] Interpretation and review of laboratory results Abnormal [facility] Lymphocytes/100 WBC (Bld) 15 % Low 24 - 43 % [facility] MCH (RBC) [Entitic mass] 26.5 pg 25.2 - 33.5 pg [facility] MCHC (RBC) [Mass/Vol] 31.4 g/dL 28.4 - 34.8 g/dL [facility] MCV (RBC) [Entitic vol] 84.5 fL 82.6 - 102.9 fL [facility] Monocytes/100 WBC (Bld) 7 % 3 - 12 % [facility] NRBC Automated 0.0 0.0 per 100 WBC [facility] Platelet distribution width (Bld) [Ratio] 14.2 % 11.8 - 14.4 % [facility] Platelet mean volume (Bld) [Entitic vol] 11.9 fL 8.1 - 13.5 fL [facility] Platelets (Bld) [#/Vol] 259 10*3/uL [facility] RBC (Bld) [#/Vol] 3.88 10*6/uL Low 3.95 - 5.1 1 m/uL [facility] Segmented neutrophils/100 WBC (Bld) 76 % High 36 - 65 % [facility] Segs Absolute 9.01 High [facility] WBC (Bld) [#/Vol] 11.9 10*3/uL High [facility] CBC with Diffon 12-07-2021 Abs. Basophil 0.04 k/uL Normal 0.00-0.20 [facility] Comment on above: Performed By: #### C DP #### [facility] [address] [place] [address] Wire Brusher: Mohamud Lucas MD Abs.Imm.Granulocyte 0.08 k/uL Normal 0.00-0.30 [facility] Comment on above: Performed By: #### C DP #### [facility] [address] [place] [address] Wire Brusher: Mohamud Lucas MD Abs.Neutrophil (Seg) 9.01 k/uL High 1.50-8.10 [facility] Comment on above: Performed By: #### C DP #### [facility] [address] [place] [address] Wire Brusher: Mohamud Lucas MD Basophils/100 WBC (Bld) 0 % Normal 0-2 [facility] Comment on above: Performed By: #### C DP #### [facility] [address] [place], [facility] Wire Brusher: Mohamud Lucas MD Eosinophils (Bld) [#/Vol] 0.08 10*3/uL Normal 0.00-0.44 [facility] Comment on above: Performed By: #### C DP #### [address] [place] [id number] Wire Brusher: Mohamud Lucas MD Eosinophils/100 WBC (Bld) 1 % Normal 1-4 [facility] Comment on above: Performed By: #### C DP #### [address] [place] [address] Wire Brusher: Mohamud Lucas MD Erythrocyte distribution width (RBC) [Ratio] 14.2 % Normal 11.8-14.4 [facility] Comment on above: Performed By: #### C DP #### [address] [place] [address] Wire Brusher: Mohamud Lucas MD Hematocrit (Bld) [Volume fraction] 32.8 % Low 36.3-47.1 [facility] Comment on above: Performed By: #### C DP #### [address] [place] [address] Wire Brusher: Mohamud Lucas MD Hemoglobin (Bld) [Mass/Vol] 10.3 g/dL Low 11.9-15.1 [facility] Comment on above: Performed By: #### C DP #### [address] [place] [address] Wire Brusher: Mohamud Lucas MD Immature granulocytes/100 WBC (Bld) 1 % High 0 [facility] Comment on above: Performed By: #### C DP #### [address] [place] [address] Wire Brusher: Mohamud Lucas MD Lymphocytes (Bld) [#/Vol] 1.81 10*3/uL Normal 1.10-3.70 [facility] Comment on above: Performed By: #### C DP #### [facility] [address] [place], [place] [address] Wire Brusher: Mohamud Lucas MD Lymphocytes/100 WBC (Bld) 15 % Low 24-43 [facility] Comment on above: Performed By: #### C DP #### [facility] [address] [place], [place] [id number] Wire Brusher: Mohamud Lucas MD MCH (RBC) [Entitic mass] 26.5 pg Normal 25.2-33.5 [facility] Comment on above: Performed By: #### C DP #### [facility] [address] [place], [place] [id number] Wire Brusher: Mohamud Lucas MD MCHC (RBC) [Mass/Vol] 31.4 g/dL Normal 28.4-34.8 [facility] Comment on above: Performed By: #### C DP #### [address] [place] [address] Wire Brusher: Mohamud Lucas MD MCV (RBC) [Entitic vol] 84.5 fL Normal 82.6-102.9 [facility] Comment on above: Performed By: #### C DP #### [facility] [address] [place] [address] Wire Brusher: Mohamud Lucas MD Monocytes (Bld) [#/Vol] 0.88 10*3/uL Normal 0.10-1.20 [facility] Comment on above: Performed By: #### C DP #### [facility] [address] [place], [place] [id number] Wire Brusher: Mohamud Lucas MD Monocytes/100 WBC (Bld) 7 % Normal 3-12 [facility] Comment on above: Performed By: #### C DP #### [facility] [address] [place], [place] [address] Wire Brusher: Mohamud Lucas MD Neutrophil (Seg) 76 % High 36-65 [facility] Comment on above: Performed By: #### C DP #### [facility] [address] [place], [place] [id number] Wire Brusher: Mohamud Lucas MD NRBC Automated 0.0 per 100 WBC Normal 0.0 [facility] Comment on above: Performed By: #### C DP #### [facility] [address] [place] [id number] Wire Brusher: Mohamud Lucas MD Platelet mean volume (Bld) [Entitic vol] 11.9 fL Normal 8.1-13.5 [facility] Comment on above: Performed By: #### C DP #### [facility] [address] [place], [place] [id number] Wire Brusher: Mohamud Lucas MD Platelets (Bld) [#/Vol] 259 10*3/uL Normal 138-453 [facility] Comment on above: Performed By: #### C DP #### [address] [place], [place] [id number] Wire Brusher: Mohamud Lucas MD RBC (Bld) [#/Vol] 3.88 10*6/uL Low 3.95-5.11 [facility] Comment on above: Performed By: #### C DP #### [facility] [address] [place], [place] [id number] Wire Brusher: Mohamud Lucas MD WBC (Bld) [#/Vol] 11.9 10*3/uL High 3.5-11.3 [facility] Comment on above: Performed By: #### C DP #### [facility] [address] [place], [place] [id number] Wire Brusher: Mohamud Lucas MD DRUG SCREEN MULTI URINEon Amphetamine Screen, Ur Negative NEGATIVE [facility] Barbiturate Screen, Ur Negative NEGATIVE [facility] Benzodiazepine Screen, Urine Negative NEGATIVE [facility] Buprenorphine Urine Negative NEGATIVE [facility] Cannabinoid Scrn, Ur Negative NEGATIVE [facility] Cocaine Metabolite, Urine Negative NEGATIVE [facility] Methadone Screen, Urine Negative NEGATIVE [facility] Methamphetamine, Urine Negative NEGATIVE [facility] Opiates, Urine Negative NEGATIVE [facility] Oxycodone Screen, Ur Negative NEGATIVE [facility] Phencyclidine, Urine Negative NEGATIVE [facility] Propoxyphene, Urine Negative NEGATIVE [facility] Tricyclic Antidepressants, Urine Negative NEGATIVE [facility] Comment on above: Drug screen results are to be used for medical purposes only. All positive results are unconfirmed. Testing for employment or legal uses should be sent to a reference laboratory for confirmation. [facility] Drug Scr, Abuse, Uron 2021 Amphetamine(s),Ur Negative Normal [facility] Comment on above: Performed By: #### D AU #### [facility] [address] [place] [address] [place] [address] Wire Brusher: Mohamud Lucas MD Barbiturate(s),Ur Negative Normal NEG [facility] Comment on above: Performed By: #### D AU #### [facility] [address] [place] [address] [place] [address] Wire Brusher: Mohamud Lucas MD Benzodiazepine(s) Negative Normal NEG [facility] Comment on above: Performed By: #### D AU #### [facility] [address] [place] [address] [place] [address] Wire Brusher: Mohamud Lucas MD Buprenorphrine, Ur Negative Normal NEG [facility] Comment on above: Performed By: #### D AU #### [facility] [address] [place] [address] [place] [address] Wire Brusher: Mohamud Lucas MD Cannabinoid(s),Ur Negative Normal [facility] Comment on above: Performed By: #### D AU #### [facility] [address] [place] [address] Wire Brusher: Mohamud Lucas MD Cocaine Metabolite Negative Normal [facility] Comment on above: Performed By: #### D AU #### [facility] [address] [place], [place] [id number] Wire Brusher: Mohamud Lucas MD Methadone Ql (U) Negative Normal [facility] Comment on above: Performed By: #### D AU #### [facility] [address] [place], [place] [id number] Wire Brusher: Mohamud Lucas MD Methamphetamine, Ur Negative Normal [facility] Comment on above: Performed By: #### D AU #### [facility] [address] [place], [place] [id number] Wire Brusher: Mohamud Lucas MD Opiate(s), Ur Negative Normal [facility] Comment on above: Performed By: #### D AU #### [address] [place], [place] [id number] Wire Brusher: Mohamud Lucas MD Oxycodone, Urine Negative Normal [facility] Comment on above: Performed By: #### D AU #### [facility] [address] [place], [place] [id number] Wire Brusher: Mohamud Lucas MD Phencyclidine, Ur Negative Normal [facility] Comment on above: Performed By: #### D AU #### [facility] [address] [place], [place] [id number] Wire Brusher: Mohamud Lucas MD Propoxyphene,Urine Negative Normal [facility] Comment on above: Performed By: #### D AU #### [address] [place], [place] [id number] Wire Brusher: Mohamud Lucas MD Tricyclic antidepressants Screen Ql (U) Negative Normal NEG [facility] Comment on above: Result Comment: Drug screen results are to be used for medical purposes only. All positive results are unconfirmed. Testing for employment or legal uses should be sent to a reference laboratory for confirmation. Performed By: #### D AU #### [address] [place] [address] Wire Brusher: Mohamud Lucas MD Microscopic Urinalysison - [facility] Bacteria, UA 2+ Abnormal None [facility] Epithelial Cells UA 2 TO 5 [facility] Interpretation and review of laboratory results Abnormal [facility] RBC, UA 0 TO 2 [facility] WBC, UA 2 TO 5 [facility] Yeast, UA PRESENCE NOTED Abnormal None [facility] OPERATIVE REPORTon 2 OPERATIVE REPORT [address] [address] OPERATIVE REPORT PATIENT NAME: ALTON DAVIS : 1990 MED REC NO: [id number] ROOM: [id number] ACCOUNT NO: [id number] ADMIT DATE: 12/07/2021 PROVIDER: Matt Light MD [...] section, low transverse uterine segment. ANESTHESIA: Epidural. SUPERVISOR DYER: Maulik Del Toro. ESTIMATED BLOOD LOSS: 600 [...] was extended in a semilunar fashion with power sewing machine operator's fingers. head was elevated and [...] a running imbricating interlocking fashion. A few peoant-at-yvrvy sutures were placed along the central inferior [...] were mentioned. MATT LIGHT MD [id number] Doc#: [id number] CC: Maulik Del Toro [facility] Surgical Pathologyon 022 Surgical Pathology (NOTE) -- [...] SURGICAL PATHOLOGY CONSULTATION Patient Name: ALTON DAVIS [facility] Rec: [id number] Path Number: [id number] [employer] [facility] [employer] ANATOMIC PATHOLOGY [address] [place] [phone] [facility] Comment on above: Performed By: #### P PPVS #### [employer] [address] [place] [id number] Wire Brusher: Dhaval Rao MD BIOPHYSICAL PROFILE WO NON STRESS TESTINGon 12-07-2021 Radiology Study observation (narrative) [facility] Work Phone: Urinalysison 12-07-2021 Bilirubin Urine Negative NEGATIVE [facility] Color, UA Yellow Yellow [facility] Glucose, Ur Negative NEGATIVE [facility] Interpretation and review of laboratory results Abnormal [facility] Ketones Ql (U) Negative NEGATIVE [facility] Leukocyte esterase Test strip Ql (U) Negative NEGATIVE [facility] Nitrite, Urine Negative NEGATIVE [facility] pH, UA 6.0 [facility] Protein, UA Negative NEGATIVE [facility] Specific [place], UA >1.030 High [facility] Turbidity UA Clear Clear [facility] Urine Hgb 1+ Abnormal NEGATIVE [facility] Urobilinogen, Urine Normal Normal [facility] Urinalysis, Routineon 2021 Bilirubin, SemiQt,Ur Negative Normal NEG [facility] Comment on above: Performed By: #### U MICAO, UA #### [address] [place] [address] Wire Brusher: Mohamud Lucas MD Blood, Urine 1+ Abnormal NEG [facility] Comment on above: Performed By: #### U MICAO, UA #### [facility] [address] [place] [address] Wire Brusher: Mohamud Lucas MD Clarity (U) Clear Normal CLEAR [facility] Comment on above: Performed By: #### U MICAO, UA #### [facility] [address] [place] [address] Wire Brusher: Mohamud Lucas MD Color (U) Yellow Normal YEL [facility] Comment on above: Performed By: #### U MICAO, UA #### [facility] [address] [place] [address] [place] [address] Wire Brusher: Mohamud Lucas MD Glucose Ql (U) Negative Normal NEG [facility] Comment on above: Performed By: #### U MICAO, UA #### [facility] [address] [place] [address] [place] [address] Wire Brusher: Mohamud Lucas MD Ketones Ql (U) Negative Normal NEG [facility] Comment on above: Performed By: #### U MICAO, UA #### [facility] [address] [place] [address] [place] [address] Wire Brusher: Mohamud Lucas MD Leukocyte esterase Test strip Ql (U) Negative Normal NEG [facility] Comment on above: Performed By: #### U MICAO, UA #### [facility] [address] [place] [address] [place], [place] [phone] Wire Brusher: Mohamud Lucas MD Nitrite,Ur Negative Normal [facility] Comment on above: Performed By: #### U MICAO, UA #### [facility] [address] [place] [address] [place] [address] Wire Brusher: Mohamud Lucas MD PH,Ur 6.0 Normal 5.0-9.0 [facility] Comment on above: Performed By: #### U MICAO, UA #### [facility] [address] [place] [address] [place] [address] Wire Brusher: Mohamud Lucas MD Protein Ql (U) Negative Normal NEG [facility] Comment on above: Performed By: #### U MICAO, UA #### [facility] [address] [place] [address] [place] [address] Wire Brusher: Mohamud Lucas MD Spec. [place],Ur >1.030 High 1.010-1.020 [facility] Comment on above: Performed By: #### U MICAO, UA #### [facility] [address] [place] [address] [place], [place] [phone] Wire Brusher: Mohamud Lucas MD Urobilinogen,Ur Normal Normal NORM [facility] Comment on above: Performed By: #### U MICAO, UA #### [facility] [address] [place], [place] [phone] Wire Brusher: Mohamud Lucas MD Urinalysis,Microon 2 ----- Normal [facility] Comment on above: Performed By: #### U MICAO, UA #### [facility] [address] [place], [place] [phone] Wire Brusher: Mohamud Lucas MD Bacteria 2+ Abnormal NONE [facility] Comment on above: Performed By: #### U MICAO, UA #### [facility] [address] [place], [place] [phone] Wire Brusher: Mohamud Lucas MD Epithelial cells LM Ql (Urine sed) 2 TO 5 Normal 0-25 [facility] Comment on above: Performed By: #### U MICAO, UA #### [facility] [address] [place] [address] [place], [place] [phone] Wire Brusher: Mohamud Lucas MD Urine RBC's 0 TO 2 Normal 0-2 [facility] Comment on above: Performed By: #### U MICAO, UA #### [facility] [address] [place], [place] [id number] Wire Brusher: Mohamud Lucas MD Urine WBC's 2 TO 5 Normal 0-5 [facility] Comment on above: Performed By: #### U MICAO, UA #### [facility] [address] [place] [address] Wire Brusher: Mohamud Lucas MD Yeast PRESENCE NOTED Abnormal NONE [facility] Comment on above: Performed By: #### U MICAO, UA #### [facility] [address] [place], [place] [address]8421 Wire Brusher: Mohamud Lucas MD US OB Growthon 11-29-2021 [...] by Param Garnett on 11/30/2021 0718 Normal [facility] [employer] GBS, External Resulton 11-10 GBS, External Result Positive [facility] [employer] Phone: [facility] [employer] Phone: Q - STREPTOCOCCUS,GROUP B CU LTUREon 11-10-2021 STREPTOCOCCUS, GROUP B CULTURE SEE NOTE Abnormal [facility] [employer] Comment on above: Order Comment: [employer] [facility] performed at: [place], [employer] [facility], [address] [place] [address], [address] [place] [address], [phone], Ore Fielder: David Whalen MD [facility] Collection Date/Time: [id number] [facility] Results Received Date/Time: [id number] [facility] Reported Date/Time: [id number] Result Comment: STRE PTOCOCCUS, GROUP B CULTURE Micro Number: [id number] Test Status: Final Specimen Source: Vaginal/anorectal Specimen [...] 5 [id number] #### [facility] [address] [place] [address] US OB Growthon 10-03-2021 US OB Growth [...] Anterior fundal Grade I Weight (g) by Hmoiqtvjrm34.5 % * These measurements result in an [...] by Param Garnett on 10/04/2021 0920 Normal [facility] No Panel Informationon 09-22 ABO, External Result Negative [facility] [employer] Phone: Rh Factor, External Result Negative [facility] Phone: [facility] Phone: Rhogam, External Resultson 0 09-21-2021 Rhogam, External Result given [facility] Phone: [facility] Phone: Complete Blood Counton 09-20 Erythrocyte distribution width (RBC) [Ratio] 12.5 % Normal 11.0-15.0 [facility] [employer] Comment on above: Performed By: #### G GLU, CBC #### [facility] [address] [place], [place] [id number] Hematocrit (Bld) [Volume fraction] 32.7 % Low 35.0-47.0 [facility] Comment on above: Performed By: #### G GLU, CBC #### [facility] [address] [place], [place] [id number] Hemoglobin (Bld) [Mass/Vol] 10.7 g/dL Low 11.6-15.5 [facility] [employer] Comment on above: Performed By: #### G GLU, CBC #### [facility] [address], [place] [id number] MCH (RBC) [Entitic mass] 30.1 pg Normal 27.0-33.0 [facility] [employer] Comment on above: Performed By: #### G GLU, CBC #### [facility] [address] [place], [place] [id number] MCHC (RBC) [Mass/Vol] 32.7 g/dL Normal 32.0-36.0 [facility] Comment on above: Performed By: #### G GLU, CBC #### [facility] [address] [place], [place] [id number] MCV (RBC) [Entitic vol] 92 fL Normal 80-100 [facility] [employer] Comment on above: Performed By: #### G GLU, CBC #### [facility] [address], [place] [id number] Platelet mean volume (Bld) [Entitic vol] 10.80 fL Normal 7.50-12.50 [facility] Specialist Comment on above: Performed By: #### G GLU, CBC #### [facility] [address] [place], [place] [id number] Platelets (Bld) [#/Vol] 240 10*3/uL Normal 140-400 [facility] Comment on above: Performed By: #### G GLU, CBC #### [facility] [address] [place], [place] [id number] RBC (Bld) [#/Vol] 3.56 10*6/uL Low 3.90-5.20 [facility] Comment on above: Performed By: #### G GLU, CBC #### [facility] [address] [place], [place] [id number] RDW-SD 42.5 fL Normal 37.0-50.0 [facility] Specialist Comment on above: Performed By: #### G GLU, CBC #### [facility] [address] [place], [place] [id number] WBC (Bld) [#/Vol] 9.5 10*3/uL Normal 3.8-11.0 [facility] Specialist Comment on above: Performed By: #### G GLU, CBC #### [facility] [address] [place], [place] [id number] Glucose - Gestational Screen on 09-20-2021 Glucose [Mass/Vol] 128 mg/dL Normal <135 [facility] Specialist Comment on above: Result Comment: A va lue of 135 mg/dL or greater indicates the need for a full glucose tolerance test performed in the fasting state to determine if the patient has gestational diabetes. Performed By: #### G GLU, CBC #### [facility] [address] [place], [place] [id number] US OB Growthon 08-29-2021 US OB Growth [...] by Param Garnett on 09/02/2021 0850 Normal [facility] [employer] US OB 2nd/3rd Trimesteron US OB 2nd/3rd [...] 4.7 cm (20 weeks, 2 days) Head Bpkexmtianaau43.5 cm (20 weeks, 0 days) Abdominal Voealczdbmlkv30.2 cm (20 weeks, 3 days) Femur Length [...] by Param Garnett on 09/20/2021 0947 Normal [facility] C. Trachomatis, External Res ulton 05-04-2021 C. Trachomatis, External Result Not detected [facility] Phone: HIV, External Resulton 05-04 HIV, External Result Non-Reactive [facility] Phone: Hepatitis B, External Result on 05-04-2021 Hep B, External Result Non-Reactive [facility] Phone: N. Gonorrhoeae, External Res ulton 05-04-2021 N. Gonorrhoeae, External Result Not detected [facility] Phone: No Panel Informationon 05-04 [facility] Phone: [facility] Phone: RPR, External Labon 05-04-20 RPR, External Result Non-Reactive [facility] Phone: Rubella Titer, External Resu lton 05-04-2021 Rubella Titer, External Result immune [facility] Phone: Cytologyon 06-05-2017 Cytology (NOTE)[id number] Y LABORATORIESCONSULTING PATHOLOGISTS CORPORATIONANATOMIC QXPANCIMV[address] [place] [address]. [place], [place] [address] Fax: GYNECOLOGIC CYTOLOGY REPORTPatient Name: PARMINDER MASSEY#: [id number] #[id number]: Cervical material, (ThinPrep vial, Imaging-assisted review)Clinical HistoryNo LMP date givenContraceptive useR87.615 Unsatisfactory pap of cervixHigh Risk HPV DNA testing is requested if the diagnosis is ASC-USINTERPRETATIONCervi mariama material, (ThinPrep vial, Imaging-assisted review):Specimen Adequacy: Satisfactory for evaluation. - Endocervical/transformati on zone component present.Descriptive Diagnosis: Negative for intraepithelial lesion or malignancy.Shift in aniceto suggestive of bacterial vaginosis.Cytotechnologis t: DAFNE. Lazaro, ALFREDA(ASCP)Electronically Signed Outcd/06/14/2017 Normal [facility] DHEA Sulfateon 04-09-2017 DHEA Sulfate 107.0 ug/dL Normal 65-380 [facility] Comment on above: Result Comment: [employer] [address] [place] [address] Performed By: #### C YTCGP ####[address] [address] Cortisolon 04-06-2017 Cortisol 10.0 ug/dL Normal [facility] Comment on above: Result Comment: Georges isol Reference Range: AM 6.0-18.4 PM 2.7-10.[address] [address] Performed By: #### G ADILENE, CORTI, INSU, TSHX, PROL, FTST, DHES ####[address] [address] Glucoseon 04-06-2017 Glucose mass conc 83 mg/dL Normal 70-99 [facility] [place] [facility] Comment on above: Result Comment: [employer] [address] [place] [address] Performed By: #### G ADILENE, CORTI, INSU, TSHX, PROL, FTST, DHES ####[address] [address] Insulinon 04-06-2017 Insulin 11.1 mU/L Normal [facility] Comment on above: Performed By: #### G ADILENE, CORTI, INSU, TSHX, PROL, FTST, DHES ####[address] [address] Reference Range Normal [facility] Comment on above: Result Comment: Fast in.6-24.930 min: 20-83989 min: 29-8890 min: 26-56921 min: 22-[address] [address] Performed By: #### Sade ADILENE, CORTI, INSU, TSHX, PROL, FTST, DHES ####[address] [address] Collection Info. NOT REPORTED Normal [facility] Comment on above: Performed By: #### Sade ADILENE, CORTI, INSU, TSHX, PROL, FTST, DHES ####[address] [address] Prolactinon 04-06-2017 Prolactin 35.67 ug/L High 4.79-23.30 [facility] Comment on above: Result Comment: The presence of macroprolactin may cause interference in female patients with various endocrinological diseases or during .[address] [address] Performed By: #### Sade ADILENE, CORTI, INSU, TSHX, PROL, FTST, DHES ####[address] [address] TSH w/reflex to FT4on 2016 Thyroid stimulating hormone (TSH) 1.54 m[IU]/L Normal 0.30-5.00 [facility] Comment on above: Result Comment: [address] [address] Performed By: #### G ADILENE, CORTI, INSU, TSHX, PROL, FTST, DHES ####[address] [address] Testosterone, Freeon 017 Sex Horm Bind Glob 133 nmol/L Normal 30-135 [facility] Comment on above: Performed By: #### G ADILENE, CORTI, INSU, TSHX, PROL, FTST, DHES ####[facility] [place] [address] Testosterone 27 ng/dL Normal 20-70 [facility] Comment on above: Performed By: #### G ADILENE, CORTI, INSU, TSHX, PROL, FTST, DHES ####[address] [place] [address] Testosterone,Free 1.7 pg/mL Normal 0.8-7.4 [facility] [place] [facility] Comment on above: Result Comment: The concentration of free testosterone is derived from a mathematical expression based on the constant for the binding of testosterone to albumin and/or sex hormone binding globulin.[address] [address] Performed By: #### G ADILENE, CORTI, INSU, TSHX, PROL, FTST, DHES ####[address] [address] US PELVIS COMPLETEon 017 US PELVIS COMPLETE [...] by:MATT Batresigned by:Ethan Armstrong MD04/06/17Final result Normal [facility] Chlamydia/GC DNA, TPon 03-29 Chlamydia Probe, TP Negative Normal NEG [facility] Comment on above: Result Comment: CHLA MYDIA TRACHOMATIS DNA not detected by nucleic acid amplification. Performed By: #### C YTCGP ####[address] [address] Gonorrhea Probe, TP Negative Normal NEG [facility] Comment on above: Result Comment: NEIS SERIA GONORRHOEAE DNA not detected by nucleic acid amplification.[address] [address] Performed By: #### C YTCGP ####[address] [address] Cytologyon 03-28-2017 Cytology (NOTE)[id number] Y LABORATORIESCONSULTING PATHOLOGISTS CORPORATIONANATOMIC IBGALIMNU[address] [place] [phone] Fax: GYNECOLOGIC CYTOLOGY REPORTPatient Name: PARMINDER MASSEY#: [id number] #[id number]:1: Cervical material, (ThinPrep vial, Imaging-assisted review)Clinical HistoryNo LMP date nxfpkB53.4 Encounter for screening for malignant neoplasm of [...] of bacterial vaginosis.Cytotechnologis t: ALFREDA Izquierdo(ASCP)Electronically Signed Out04/04/2017 Normal [facility] Vaginitis DNA Probeon 2016 Vaginitis DNA [...] of vaginitis/vaginosis. Report Status FINAL 03/28/2017 Normal [facility] Comment on above: Performed By: #### V AGDNA ####[address] [place], [place] [id number] Vital Signs Date Time Vital Sign Value Performing Clinician Facility 08-19-2024 10:49-0500 Body mass index (BMI) [Ratio] 27.72 kg/m2 Maulik Floro CNM Work Phone: [facility] 08-19-2024 10:49-0500 Body weight 75.57 kg Maulik Floro CNM Work Phone: [facility] 08-19-2024 10:49-0500 Diastolic blood pressure 70 mm[Hg] Maulik Floro CNM Work Phone: [facility] 08-19-2024 10:49-0500 Systolic blood pressure 118 mm[Hg] Maulik Floro CNM Work Phone: [facility] 08-13-2024 10:52-0500 Body mass index (BMI) [Ratio] 27.46 kg/m2 Maulik Floro CNM Work Phone: [facility] 08-13-2024 10:52-0500 Body weight 74.84 kg Maulik Floro CNM Work Phone: [facility] 08-13-2024 10:52-0500 Diastolic blood pressure 60 mm[Hg] Maulik Floro CNM Work Phone: [facility] 08-13-2024 10:52-0500 Systolic blood pressure 108 mm[Hg] Maulik Floro CNM Work Phone: [facility] 08-06-2024 11:23-0500 Body mass index (BMI) [Ratio] 27.29 kg/m2 Maulik Floro CNM Work Phone: [facility] 08-06-2024 11:23-0500 Body weight 74.39 kg Maulik Floro CNM Work Phone: [facility] 08-06-2024 11:23-0500 Diastolic blood pressure 80 mm[Hg] Maulik Floro CNM Work Phone: [facility] 08-06-2024 11:23-0500 Systolic blood pressure 120 mm[Hg] Maulik Floro CNM Work Phone: [facility] 07-23-2024 10:07-0500 Body mass index (BMI) [Ratio] 27.29 kg/m2 Maulik Floro CNM Work Phone: [facility] 07-23-2024 10:07-0500 Body weight 74.39 kg Maulik Floro CNM Work Phone: [facility] 07-23-2024 10:07-0500 Diastolic blood pressure 80 mm[Hg] Maulik Floro CNM Work Phone: [facility] 07-23-2024 10:07-0500 Systolic blood pressure 120 mm[Hg] Maulik Floro CNM Work Phone: [facility] 06-25-2024 10:32-0500 Body mass index (BMI) [Ratio] 25.79 kg/m2 Maulik Floro CNM Work Phone: [facility] 06-25-2024 10:32-0500 Body weight 70.31 kg Maulik Floro CNM Work Phone: [facility] 06-25-2024 10:32-0500 Diastolic blood pressure 80 mm[Hg] Maulik Floro CNM Work Phone: [facility] 06-25-2024 10:32-0500 Systolic blood pressure 120 mm[Hg] Maulik Floro CNM Work Phone: [facility] 05-21-2024 09:23-0500 Body mass index (BMI) [Ratio] 24.13 kg/m2 Maulik Floro CNM Work Phone: [facility] 05-21-2024 09:23-0500 Body weight 65.77 kg Maulik Floro CNM Work Phone: [facility] 05-21-2024 09:23-0500 Diastolic blood pressure 80 mm[Hg] Maulik Floro CNM Work Phone: [facility] 05-21-2024 09:23-0500 Systolic blood pressure 120 mm[Hg] Maulik Floro CNM Work Phone: [facility] 04-23-2024 09:26-0400 Body mass index (BMI) [Ratio] 22.63 kg/m2 Maulik Floro CNM Work Phone: [facility] 04-23-2024 09:26-0400 Body weight 61.69 kg Maulik Floro CNM Work Phone: [facility] 04-23-2024 09:26-0400 Diastolic blood pressure 70 mm[Hg] Maulik Floro CNM Work Phone: [facility] 04-23-2024 09:26-0400 Systolic blood pressure 112 mm[Hg] Maulik Floro CNM Work Phone: [facility] 03-19-2024 09:31-0400 Body mass index (BMI) [Ratio] 21.8 kg/m2 Maulik Floro CNM Work Phone: [facility] 03-19-2024 09:31-0400 Body weight 59.42 kg Maulik Floro CNM Work Phone: [facility] 03-19-2024 09:31-0400 Diastolic blood pressure 72 mm[Hg] Maulik Floro CNM Work Phone: [facility] 03-19-2024 09:31-0400 Systolic blood pressure 112 mm[Hg] Maulik Floro CNM Work Phone: [facility] 12-10-2021 07:07-0400 Body temperature 98.1 [degF] Rodo Mason CNM Work Phone: [employer] 12-10-2021 07:07-0400 Diastolic blood pressure 65 mm[Hg] Rodo Mason CNM Work Phone: [facility] [employer] 12-10-2021 07:07-0400 Heart rate 81 /min Rodo Mason CNM Work Phone: [facility] [employer] 12-10-2021 07:07-0400 Respiratory rate 18 /min Rodo Mason CNM Work Phone: [facility] [employer] 12-10-2021 07:07-0400 Systolic blood pressure 114 mm[Hg] Rodo Mason CNM Work Phone: [facility] [employer] 12-08-2021 00:34-0400 SaO2% (BldA) [Mass fraction] 94 % Rodo Mason CNM Work Phone: [facility] [employer] 12-07-2021 05:40-0400 Body height 165.1 cm Rodo Mason CNM Work Phone: [facility] 12-07-2021 05:40-0400 Body mass index (BMI) [Ratio] 30.12 kg/m2 Rodo Mason CNM Work Phone: [facility] [employer] 12-07-2021 05:40-0400 Body weight 82.1 kg Rodo Mason CNM Work Phone: [facility] [employer] Encounters Encounter Date Encounter Type Care Provider Facility Start: 08-26-2024 End: 08-26-2024 Orders Only Maulik Del Toro CNM Work Phone: [facility] Comment on above: COVID (Primary Dx); COVID-19 Start: 08-19-2024 End: 08-19-2024 Bamboo flowsheet Maulik Del Toro CNM Work Phone: [facility] Start: 08-19-2024 End: 08-21-2024 Bamboo flowsheet Maulik Del Toro CNM Work Phone: [facility] Start: 08-19-2024 End: 08-19-2024 Clinisync Result Encounter Maulik Del Toro CNM Work Phone: [facility] Unsolicited Start: 08-19-2024 End: 08-21-2024 External Result Encounter Maulik Del Toro CNM Work Phone: [facility] Unsolicited Start: 08-19-2024 End: 08-19-2024 ambulatory MAULIK L FLORO Not Available Start: 08-19-2024 End: 08-19-2024 Subsequent care visit Maulik Del Toro CNM [...] 08-13-2024 End: 08-13-2024 Subsequent care visit Maulik Del Toro CNM Work Phone: [facility] Comment on above: Encounter for superv ision of other normal , third trimester (Primary Dx); History of section Start: 08-06-2024 End: 08-06-2024 Subsequent care visit Maulik Del Toro CNM [...] Evaluation and management of inpatient RODO P [facility] Start: 12-07-2021 End: 12-10-2021 Evaluation and management of inpatient Rodo Tafoya Simmons SCREW REMOVER - CNM Work Phone: [facility] Labor and Delivery Comment on above: Third trimester preg corey Start: 06-24-2021 End: 06-24-2021 ambulatory ARINA FLORO Facility: Start: 06-06-2017 End: 06-06-2017 Ambulatory [facility] Start: 04-06-2017 End: 04-07-2017 Ambulatory [facility] Start: 03-28-2017 End: 03-29-2017 Ambulatory [facility] Procedures Date Procedure Procedure Detail Performing Clinician Start: 08-19-2024 OB BPP W NON-STRESS Maulik L Floro CNM Work Phone: Start: 08-19-2024 US OB PLACENTA Maulik Del Toro CNM Work Phone: Start: 08-19-2024 STREPTOCCOUS, GROUP B CULTURE Maulik Del Toro CNM Work Phone: Start: 08-13-2024 US OB BPP W NON-STRESS Generic External Data Provider Start: 07-27-2024 ALL CBC WITH AUTO DIFF Narayan Juan DO Work Phone: Start: 12-08-2021 Blood count complete automated Maulik Del Toro [employer]CREW REMOVER - CNM Work Phone: Start: 12-08-2021 RHO(D) IMMUNE GLOBUL IN, Maulik Del Toro SCREW REMOVER - CNM Work Phone: Start: 12-07-2021 SURGICAL PATHOLOGY REPORT Matt Light MD Work Phone: Start: 12-07-2021 Blood count complete auto&auto difrntl wbc Rodo Bryce Schmidt SCREW REMOVER - CNM Work Phone: Start: 12-07-2021 biophysical pr ofile w/o non-stress testing Rodo Simmons SCREW REMOVER - CNM Work Phone: Start: 12-07-2021 Drug tst prsmv instr mnt chem analyzers pr date Rodo Schmidt SCREW REMOVER - CNM Work Phone: Start: 12-07-2021 Urinalysis microscop ic only Rodo Simmons SCREW REMOVER - CNM Work Phone: Start: 12-07-2021 Urnls dip stick/tabl et rgnt auto w/o microscopy Rodo Simmons SCREW REMOVER - CNM Work Phone: Start: 11-10-2021 GBS, EXTERNAL RESULT Hi storical Provider Start: 09-22-2021 ABO, EXTERNAL RESULT Hi storical Provider Start: 09-22-2021 RH FACTOR, EXTERNAL RESULT Historical Provider Start: 09-21-2021 RHOGAM, EXTERNAL RESULT Historical Provider Start: 05-04-2021 C. TRACHOMATIS, EXTE RNAL RESULT Historical Provider Start: 05-04-2021 HEPATITIS B, EXTERNA L RESULT Historical Provider Start: 05-04-2021 HIV, EXTERNAL RESULT Ma elieical Provider Start: 05-04-2021 N. GONORRHOEAE, EXTE RNAL RESULT Historical Provider Start: 05-04-2021 RPR, EXTERNAL RESULT Hi storical Provider Start: 05-04-2021 RUBELLA TITER, EXTER NAL RESULT Historical Provider Start: 06-05-2017 Microscopic observat ion [Identifier] in Cervix by Cyto stain Rodo Simmons APRN - [facility] Work Phone: Start: 04-06-2017 CORTISOL TOTAL SONU DE LA ROSA SER Start: 04-06-2017 DHEA-SULFATE SONU GONZALEZ R Start: 04-06-2017 GLUCOSE, RANDOM SONU BRYAN ASER Start: 04-06-2017 INSULIN, TOTAL SONU DE LA ROSA SER Start: 04-06-2017 PROLACTIN SONU GONZALEZ R Start: 04-06-2017 TESTOSTERONE, FREE SONU DE LA ROSASER Start: 04-06-2017 TSH WITH REFLEX SONU FR ASER Start: 04-06-2017 Us pelvic nonobstetr ic real-time image complete SONU GONZALEZ Start: 04-06-2017 US PELVIS COMPLETE TRANSVAGINAL NON OB SONU GONZALEZ Start: 03-28-2017 C.TRACHOMATIS N.GONORRHOEAE DNA, THIN PREP SONU GONZALEZ Start: 03-28-2017 VAGINITIS DNA PROBE MARISELA GONZALEZ H/O: section History of section Maulik Zeeshan Espinozao [facility] Work Phone: H/O: section History of section Maulik Zeeshan Espinozao CN Work Phone: H/O: section History of section Maulik L Olgao CN Work Phone: H/O: section History of section Maulik Zeeshan Espinozao CN Work Phone: H/O: section History of section Maulik L Olgao CN Work Phone: H/O: section History of section Maulik Zeeshan Espinozao [facility] Work Phone: H/O: section History of section Maulik Del Toro CNM Work Phone: Plan of Treatment Date Care Activity Detail Author Start: 09-03-2024 End: 09-03-2024 Patient encounter procedure 09/03/2024 10:30 AM EST Routine [facility] [address] [place] [address] Maulik Del Toro, CNM [address] [place] [address] [facility] Start: 08-27-2024 End: 08-27-2024 Patient encounter procedure 08/27/2024 10:30 AM EST Routine [facility] [address] [place] [address] Maulik Del Toro, CNM [address] [place] [address] [facility] Start: 08-19-2024 End: 08-19-2024 Patient encounter procedure 08/19/2024 10:15 AM EST Routine [facility] [address] [place] [address] Maulik Del Toro, CNM [address] [place] [address] [facility] Start: 08-13-2024 End: 08-13-2024 Patient encounter procedure 08/13/2024 10:30 AM EST Routine [facility] [address] [place] [address] Maulik Del Toro, CNM [address] [place] [address] [facility] Start: 08-06-2024 End: 08-06-2024 Patient encounter procedure 08/06/2024 11:30 AM EST Routine [facility] [address] [place] [address] Maulik Del Toro Zeeshan, CNM [address] [facility] [place] [address] [facility] Start: 07-23-2024 End: 07-23-2024 Patient encounter procedure 07/23/2024 10:00 AM EST Routine [facility] [address] [place] [address] Maulik Del Toro Zeeshan, CN [address] [facility] [place] [address] [facility] Start: 06-24-2024 End: 06-24-2024 Patient encounter procedure [facility] Comment on above: Arrived Start: 05-21-2024 End: 05-21-2024 Patient encounter procedure [facility] Comment on above: Arrived Start: 04-23-2024 End: 04-23-2024 Professional / ancillary services management 04/23/2024 10:00 AM EDT Ancillary Procedure [facility] [address] [id number] [facility] Start: 04-23-2024 End: 04-23-2024 Patient encounter procedure [facility] Comment on above: Arrived Start: 03-19-2024 End: 03-19-2025 US for US OB 14+ weeks anatomy scan Imaging Routine related condition in second trimester Expected: 03/19/2024, Expires: 03/19/2025 [facility] Work Phone: Comment on above: Expected: 03/19/2024 , Expires: 03/19/2025 Start: 03-16-2024 Influenza vaccination Influenza Vacc ine (#1) [facility] Start: 03-04-2024 Screening for malign ant neoplasm of cervix [facility] Start: 03-16-2022 Influenza vaccination Flu vacc ine (Season Ended) [facility] Start: 2020 Screening for malign ant neoplasm of cervix [facility] Start: 06-05-2020 Screening for malign ant neoplasm of cervix Pap smear [facility] [employer] Start: 2009 DTaP/Tdap/Td vaccine (1 - Tdap) DTaP/Tdap/Td vaccine (1 - Tdap) [facility] Start: 2008 Hepatitis C screening Hepatitis C sc reen [facility] [employer] Start: 2005 HIV screening HIV screen [facility] [employer] Start: 2002 Depression Screen Depression Screen [facility] [employer] Start: 1995 COVID-19 Vaccine (1) COVID-19 Vaccin e (1) [facility] [employer] Start: 1991 Varicella vaccine (1 of 2 - 2-dose childhood series) Varicella vaccine (1 of 2 - 2-dose childhood series) [facility] [employer] GBS swab GBS swab Lab Rou [place] 36 weeks gestation of Ordered: 08/19/2024 [employer] Work Phone: Comment on above: Ordered: 08/19/2024 Nonrebreather mask oxygen Nonrebreather mask oxygen Respiratory Care Routine As directed - RT (PRN) until discontinued starting 12/07/2021 [facility] [employer] Work Phone: Comment on above: As directed - RT (NE N) until discontinued starting 12/07/2021 Oxygen therapy [[facility] Data Set] Initiate Oxygen Therapy Protocol Respiratory Care Routine As Needed until discontinued starting 12/07/2021 [facility] Phone: Comment on above: As Needed until disc ontinued starting 12/07/2021 RHOGAM RHOGAM POSTPAR MARCELINO Blood Bank [employer] Print 12/08/2021 7:15 AM EDT [facility] [employer] Work Phone: Spirometry panel Incentive drea metry Respiratory Care Routine Every 2hr while awake until discontinued starting 12/08/2021 [facility] [employer] Phone: Comment on above: Every 2hr while awak e until discontinued starting 12/08/2021 STREPTOCCOUS, GROUP B CULTURE STREPTOCCOUS, GROUP B CULTURE Lab Routine 08/19/2024 11:22 AM EST [employer] Work Phone: Immunizations Immunization Date Immunization Notes Care Provider Fa cili 12-07-2021 diphtheria, tetanus toxoids and acellular pertussis vaccine, unspecified formulation Rodo Simmons [facility] Work Phone: [employer] Work Phone: 12-07-2021 measles, mumps and rubella virus vaccine Rodo Simmons [facility] Work Phone: [employer] Work Phone: Payers Date Payer Category Payer Private Health Insurance [employer] [id number] 2022 Unknown [id number] 2022-Present [address] [place] [address] [id number] 2022 Unknown [id number] 2016 Unknown [id number] 1990 Unknown [id number] 2.16.840.1.609458.3.579.2. 593 1990 Unknown [id number] 2.16.840.1.106566.3.579.2. 173 1990 Unknown [id number] 2.16.840.1.099728.3.579.2. 1258 1990 Unknown [id number] 2.16.840.1.154823.3.579.2. 1258 1990 Unknown [id number] 2.16.840.1.643097.3.579.2. 1258 1990 Unknown [id number] 2.16.840.1.406889.3.579.2. 1258 1990 Unknown [id number] 2.16.840.1.160128.3.579.2. 1258 1990 Unknown [id number] 2.16.840.1.028137.3.579.2. 1258 1990 Unknown [id number] 2.16.840.1.745140.3.579.2. 1258 1990 Unknown [id number] 2.16.840.1.868202.3.579.2. 1258 1990 Unknown [id number] 2.16.840.1.021073.3.579.2. 1258 1990 Unknown [id number] 2.16.840.1.603637.3.579.2. 1258 1990 Unknown [id number] 2.16.840.1.427993.3.579.2. 1258 1990 Unknown [id number] 2.16.840.1.396074.3.579.2. 1258 1990 Unknown [id number] 2.16.840.1.797750.3.579.2. 1258 1990 Unknown [id number] 2.16.840.1.126913.3.579.2. 1258 1959 Unknown [id number] Social History Date Type Detail Facility Start: 03-28-2017 End: 06-20-2023 Tobacco smoking status VTIS Ex-smoker [facility] [employer] Phone: History of tobacco use Cigarette Smoker [facility] [employer] Phone: Start: 03-28-2017 End: 01-29-2024 Cigarettes smoked current (pack per day) - Reported 1 [facility] Phone: Start: 03-28-2017 End: 06-20-2023 Tobacco use and exposure Smokeless tobacco non-user [facility] [employer] Phone: Start: 12-07-2021 Alcohol intake Ex-drinker (finding) [facility] Phone: Start: 1990 Sex Assigned At Not on file [facility] [employer] Phone: Start: 11-27-2021 End: 12-07-2021 Exposure to SARS-CoV-2 (event) Not sure [facility] Phone: History of tobacco use Current smoker [facility] Start: 01-29-2024 Alcoholic beverage intake Lifetime non-drinker (finding) [facility] Start: 01-29-2024 Tobacco use panel [facility] Start: 05-21-2023 Alcohol Comment caffeine: 1-2 cups per day [facility] Start: 12-23-2023 [facility] Clinical Notes 12-10-2021 to 08-19-2024 Maulik Del Toro, [facility] - 08/19/2024 10:15 AM Kyler Del Toro, [facility] - 08/13/2024 10:30 AM Kyler Del Toro [facility] - 08/06/2024 11:30 AM Kyler Del Toro [facility] - 07/23/2024 10:00 AM ESTInstructions Note Date [...] pain and recurrent BPP and NST at [facility] The following portions of the chart were [...] a routine visit. documented in this encounter [facility] 08-13-2024 History of Present illness Narrative Subjective [...] a routine visit. documented in this encounter [facility] 08-06-2024 History of Present illness Narrative Subjective [...] a routine visit. documented in this encounter [facility] 07-23-2024 History of Present illness Narrative [...] a routine visit. documented in this encounter [facility] 06-25-2024 History of Present illness [...] a routine visit. documented in this encounter [facility] 06-17-2024 Telephone encounter Note Licha [facility] needs lab result that has her blood type on it and Demo sheet faxed to [phone] [facility] 06-17-2024 Miscellaneous Notes Licha [facility] needs lab result that has her blood type on it and Demo sheet faxed to [phone] documented in this encounter [facility] 05-21-2024 History of Present illness [...] a routine visit. documented in this encounter [facility] 04-23-2024 History of Present illness [...] a routine visit. documented in this encounter [facility] 03-19-2024 History of Present illness [...] a routine visit. documented in this encounter [facility] 12-10-2021 Hospital Discharge instructions Lorin Arias, NESS - 12/10/2021 Follow-up with your OB doctor as specified. [facility] OB Department phone: Chikis Del Toro, MSN, SCREW REMOVER, CNM [place] [address] DIET Eat a well balanced diet focusing on foods high in fiber and protein. Drink plenty of fluids especially water. To avoid constipation you may take a mild stool softener as recommended by your doctor or tube and rod straightener. ACTIVITY Gradually increase your activity. Resume exercise regimen only after advice by your doctor or tube and rod straightener. Avoid lifting anything heavier than a gallon of milk for SIX weeks. Avoid driving until your doctor or tube and rod straightener has given their approval. Rise slowly from [...] medications as recommended by your doctor or tube and rod straightener for pain If you develop a warm, [...] vitamins as directed by your doctor or tube and rod straightener. Refer to the booklet in the folder/binder for more information. If you feel you need more assistance or have questions, please call Vibha Crump IBCLC, microsoft dynamics ax consultant, at or the OB department to [...] they become loose or soiled. If used, [employer] should be removed by your care provider. [...] your calf. documented in this encounter [facility] Phone: 12-10-2021 History of Present illness [...] 97.9 F (36.6 C) Oral 78 18 05 0426 115/67 98.8 F (37.1 C) Oral 72 12/08/21 0034 94 % 05 0033 94 % 05 0030 134/69 74 05 0029 134/69 74 93 % 05 0027 94 % 05 0024 95 % 05 0019 95 % 05 0017 94 % 05 0015 132/85 83 18 05 0014 96 % 12/08/21 0009 97 % 05 0004 96 % 05 0000 123/65 75 18 05 2359 98 % 05 2354 99 % 05 2349 98 % 05 2345 132/73 83 18 05 2344 97 % 05 2339 97 % 05 2335 94 % 05 2334 95 % 05 2330 128/70 98.9 F (37.2 C) Oral 77 16 12/07/21 2329 99 % 05 2324 97 % 05 2319 98 % 05 2315 121/65 91 18 05 2314 121/65 91 100 % 05 2309 98 % 05 2304 98 % 05 2300 119/66 88 17 05 2259 99 % 05 2254 98 % 05 2249 97 % 05 2245 93 17 05 2244 98 % 05 2239 91 % 05 2237 93 % 05 2234 95 % 05 2230 18 05 2229 97 % 05 2224 99 % 05 2219 100 % 12/07/212214 (!) 121/57 98.8 F (37.1 C) Oral 96 18 12/07/212213 97 % ABDOMEN: No scars, normal bowel [...] provide urine sample. documented in this encounter [facility] Phone: Evaluation note Diagnosis Uterine contractions- Primary Third trimester Term intolerance to labor, delivered, current hospitalization Abnormality in heart rate/rhythm, delivered, with or without mention of antepartum condition delivery delivered delivery, without mention of indication, delivered, with or without mention of antepartum condition documented in this encounter [facility] Phone: evaluation note* Diagnosis Encounter for supervision [...] unspecified site documented [facility] encounter [facility] Diagnosis COVID- Primary COVID-19 documented in this encounter [facility] Summary Purpose Family History No Family History Records FoundNo Family History Records FoundNo Family History Records FoundNo Family History Records FoundNo Family History Records Found Advance Directives Documents on File Type Date 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 Latest Code Status on File Code Status Date Activated Date Inactivated Comments Full Code 12/07/2021 11:34 PM Full Code 12/07/2021 5:30 AM 12/07/2021 11:33 PM Additional Source Comments INFORMATION SOURCE (unrecogn ized section and content) DATE CREATED AUTHOR 01/08/2018 [facility] DATE CREATED AUTHOR AUTHOR'S ORGANIZ ATION 12/02/2021 [facility] dical Specialist DATE CREATED AUTHOR AUTHOR'S ORGANIZ ATION 12/08/2021 [facility] DATE CREATED AUTHOR AUTHOR'S ORGANIZ ATION 01/15/2022 [facility] DATE CREATED AUTHOR AUTHOR'S ORGANIZ ATION 08/21/2024 [facility] dical Specialists EPIC Reason for Visit (unrecogniz ed section and content) Reason Comments Contractions Specialty Diagnoses / Procedures Referred By Yolis hudson Referred To Contact Diagnoses Uterine contractions Term intolerance to labor, delivered, current hospitalization Rodo Schmidt, [facility] [address] [place] [address] [facility] [address] [place] [address] Referral ID Status Reason Start Date Expiration Date Visits Re quested Visits Authorized [id number] 1 1 Ordered Prescriptions (unrec ognized section [...] Sherry Matt RN)2120 (Given - Provider: Daria Arce RN) 0808 (Given - Provider: Usha Murguia, [...] 2099 (Due - Provider: Kaushik Lindsey [facility]) 2099 (Due - Provider: Kaushik Lindsey RP) [...] RN - Reason: IV Fluid Infusing)2100 (Due) 09 (Due)2099 (Due) 09 (Due)2099 (Due) rgfuglo-myznuz-njciv pertussis (BOOSTRIX) injection 0.5 mL 0.5 mL, IntraMUSCular, PRIOR TO DISCHARGE, 1 dose, Starting on 12/07/21 at 2333, Until Discontinued, If not previously [...] Arce RN) 0418 (Given - Provider: Ena Glimore RN)1429 (Given - Provider: Nataliia York, NESS)2336 (Given - Provider: Daria Arce RN) carboprost [...] Herzog RN)1107 (Given - Provider: Sherry Matt, RN)1709 (Given - Provider: Sherry Matt, RN)2314 (Given - Provider: Misa Mcfadden RN) lansinoh lanolin ointment Topical, EVERY 1 HOUR PRN, Dry Skin, nipple discomfort, Starting on Sun12/07/21 at 2333, Post-op measles, mumps & rubella vaccine (MMR) injection 0.5 mL 0.5 mL, SubCUTAneous, PRN, 1 dose, Starting on Sun12/07/21 at 233, Until Discontinued, if non immune or equivical, methylergonovine (METHERGINE) injection 200 mcg 200 mcg, IntraMUSCular, PRN, Starting on Sun12/07/21 at 233, Until Discontinued, Bleeding, PRN for post- hemorrhage, [...] mg, IntraVENous, PRN, Starting on Sun12/07/21 at 2333, Until Discontinued, Opioid Reversal, Post-op ondansetron (ZOFRAN) [...] BE BASED ON THE PRIMARY CLINICAL RECORDS. [facility]. provides no warranty or guarantee of the accuracy or completeness of information in this document.
--- NOTE | 2024-08-30 10:21 | US_ITS ---
[address] [address] Patient Name: ALTON LILLY MRN: [facility]:[id number] date: 1990 Sex: F Assigned Patient Location: [facility] Current Patient Location[place] [facility] [place] Accession/Order Number: [id number] Exam Date: 08/30/2024 10:22 Report Date: 09/01/2024 16:30 At the request of: JEAN DICKERSON Procedure: US OB BPP w non-stress EXAM: US OB BPP w non-stress HISTORY: Pre-term labor COMPARISON: 08/19/2024. 08/13/2024. 07/30/2024. TECHNIQUE: Biophysical profile ultrasound. FINDINGS: breathin gross body movements: 2 tone: 2 Qualitative amniotic fluid volume: 2 Amniotic fluid index of 14.5. cardiac rate of 155 bpm. US/US OB BPP w non-stress IMPRESSION: Biophysical profile score: 8 Electronically authenticated by: JOVI CANSECO Date: 09/01/2024 16:30
[2024-08-30 10:38] VITALS: BP 118/72; PULSE 86
== END 2024-08-30 11:12 | disposition home or self-care (01) ==
LOC: FBCO 10:07 → FBC 10:13
PROVIDERS: PCP Midwife; Visit Provider Obstetrics & Gynecology
DX: O26.893 Other specified pregnancy related conditions, third trimester (principal)
CPT/HCPCS: 76818

== ENCOUNTER 2024-09-03 01:10 | Outpatient (OUT) | payer OTHER, SELFPAY ==
--- OUTSIDE RECORDS SUMMARY | 2024-09-03 01:13 | XMS_ITS | CCD ---
Author Organization [facility] Care Team Providers Care Optical Lab Technician Name Role Phone SONU GONZALEZ Unavailable Unavailable [...] to adverse reactions to substance 12-07-2021 [facility] Medications Current Medications Medication Drug [...] Active docusate sodium 50 mg / sennosides, skilled nursing 8.6 mg oral tablet (1 source) Start: [...] US OB BPP W NON-STRESS on 08-19-2024 [place] [address] Ultrasound Report Signed Patient: ALTON DAVIS MR#: [id number] : 1990 Acct:[id number] Age/Sex: 34 / F ADM Date: Loc: [facility] 255-[address]: MAULIK DEL TORO APRN, CNM Ordering Physician: MAULIK DEL TORO APRN, CNM Date of Service: 08/19/24 Procedure(s): US OB BPP w non-stress Accession Number(s): [id number] cc: MAULIK DEL TORO APRN, CNM [place] [id number] Patient Name: ALTON DAVIS MRN: [id number] date: 1990 Sex: F Assigned Patient Location: [facility] Current Patient Location: [facility] Accession/Order Number: [id number] Exam Date: 08/19/2024 13:00 Report Date: 08/19/2024 [...] Vasquez M.D. Signed By: 08/19/24 135 DD/ 1347 TD/TT: Slot Machine Department Floorperson: [facility] Radiology, Radiologi MD cookie - 08/19/2024 [place] [address] Ultrasound Report Signed Patient: ALTON DAVIS MR#: [id number] : 1990 Acct:[id number] Age/Sex: 34 / F ADM Date: Loc: [facility] 255-[address]: MAULIK DEL TORO APRN, CNM Ordering Physician: MAULIK DEL TORO APRN, CNM Date of Service: 08/19/24 Procedure(s): US OB BPP w non-stress Accession Number(s): [id number] cc: MAULIK DEL TORO APRN, CNM [place] [address] Patient Name: ALTON DAVIS MRN: [facility]:[id number] date: 1990 Sex: F Assigned Patient Location: [facility] Current Patient Location: [facility] Accession/Order Number: [id number] Exam Date: 08/19/2024 13:00 Report Date: 08/19/2024 [...] Signed By: 08/19/24 1350 DD/ 1347 TD/TT: Slot Machine Department Floorperson: [facility] Radiology Study observation (narrative) [facility] US OB BPP W NON-STRESS Ordered By: Radiologist Radiology on 08-19-2024 [facility] Work Phone: US OB PLACENTAon 08-19-2024 [place] [address] Ultrasound Report Signed Patient: ALTON DAVIS MR#: [id number] : 1990 Acct:[id number] Age/Sex: 34 / F ADM Date: Loc: [facility] 255-[address]: MAULIK DEL TORO APRN, CNM Ordering Physician: MAULIK DEL TORO APRN, CNM Date of Service: 08/19/24 Procedure(s): US OB placenta Accession Number(s): [id number] cc: MAULIK DEL TORO APRN, CNM [place] [address] Patient Name: ALTON DAVIS MRN: [id number] date: 1990 Sex: F Assigned Patient Location: [facility] Current Patient Location: [facility] Accession/Order Number: [id number] Exam Date: 08/19/2024 13:00 Report Date: 08/19/2024 [...] Signed By: 08/19/24 1349 DD/ 1346 TD/TT: Slot Machine Department Floorperson: [facility] Radiology, Radiologi MD cookie - 08/19/2024 [place] [address] Ultrasound Report Signed Patient: ALTON DAVIS MR#: [id number] : 1990 Acct:[id number] Age/Sex: 34 / F ADM Date: Loc: [facility] 255-[address]: MAULIK DEL TORO APRN, CNM Ordering Physician: MAULIK DEL TORO APRN, CNM Date of Service: 08/19/24 Procedure(s): US OB placenta Accession Number(s): [id number] cc: MAULIK DEL TORO APRN, CNM [place] [id number] Patient Name: ALTON DAVIS MRN: [facility]:[id number] date: 1990 Sex: F Assigned Patient Location: [facility] Current Patient Location: [facility] Accession/Order Number: [id number] Exam Date: 08/19/2024 13:00 Report Date: 08/19/2024 [...] Signed By: 08/19/24 134 DD/ 134 TD/TT: Slot Machine Department Floorperson: [facility] Radiology Study observation (narrative) [facility] US OB PLACENTAOrdered By: Ra rubio Radiology on 08-19-2024 [facility] Work Phone: US OB BPP W NON-STRESS on 08-13-2024 [place] [address] Ultrasound Report Signed Patient: ALTON DAVIS MR#: [id number] : 1990 Acct:[id number] Age/Sex: 34 / F ADM Date: 08/13/24 Loc: [facility] 258-[address]: Narayan Martinez D.O. Ordering Physician: Narayan Martinez D.O. Date of Service: 08/13/24 Procedure(s): US OB BPP w non-stress Accession Number(s): [id number] cc: MAULIK DEL TORO APRN, CHAN; Narayan Martinez D.O. [place] [address] Patient Name: ALTON DAVIS MRN: [id number] date: 1990 Sex: F Assigned Patient Location: [facility] Current Patient Location: [facility] Accession/Order Number: [id number] Exam Date: 08/13/2024 09:15 Report Date: 08/13/2024 [...] biophysical profile score: 8 Electronically authenticated by: EDN VASQUEZ Date: 08/13/2024 09:44 Dictated By: Den Vasquez M.D. Signed By: 08/13/24945 DD/ 3 TD/TT: Slot Machine Department Floorperson: [facility] Radiology, Radiologi MD cookie - 08/13/2024 [place] [address] Ultrasound Report Signed Patient: ALTON DAVIS MR#: [id number] : 1990 Acct:[id number] Age/Sex: 34 / F ADM Date: 08/13/24 Loc: [facility] 258-[address]: Narayan Martinez D.O. Ordering Physician: Narayan Martinez D.O. Date of Service: 08/13/24 Procedure(s): US OB BPP w non-stress Accession Number(s): [id number] cc: MAULIK DEL TORO APRN, CNM; Narayan Martinez D.O. [place] [address] Patient Name: ALTON DAVIS MRN: [facility]:[id number] date: 1990 Sex: F Assigned Patient Location: [facility] Current Patient Location: [facility] Accession/Order Number: [id number] Exam Date: 08/13/2024 09:15 Report Date: 08/13/2024 [...] M.D. Signed By: 08/13/24945 DD/ 3 TD/TT: Slot Machine Department Floorperson: [facility] Radiology Study observation (narrative) [facility] US OB BPP W NON-STRESS Ordered By: Radiologist Radiology on 08-13-2024 [facility] Work Phone: ALL CBC WITH AUTO DIFFon BASOPHILS ABSOLUTE AUTO 0 [facility] Basophils/100 WBC (Bld) 0.2 % 0.2 - 2.0 % [facility] Eosinophils/100 WBC (Bld) 0.2 % Low 0.9 - 7.0 % [facility] Erythrocyte distribution width (RBC) [Ratio] 12.6 % 11.0 - 15.0 % [facility] Hematocrit (Bld) [Volume fraction] 33.1 % Low 36.0 - 48.0 % [facility] Hemoglobin (Bld) [Mass/Vol] 11.1 g/dL Low 12.0 - 16.0 g/dL [facility] IMMATURE GRANULOCYTES ABS AUTO 0.16 High [facility] Immature granulocytes/100 WBC (Bld) 1.1 % High 0.0 - 0.5 % [facility] Interpretation and review of laboratory results Abnormal [facility] LYMPHOCYTES ABSOLUTE AUTO 1.5 [facility] Lymphocytes/100 WBC (Bld) 10.3 % Low 20.5 - 60.0 % [facility] MCH (RBC) [Entitic mass] 30.6 pg 26.7 - 34.0 pg [facility] MCHC (RBC) [Mass/Vol] 33.5 g/dL 29.9 - 35.2 g/dL [facility] MCV (RBC) [Entitic vol] 91.2 fL 81.0 - 99.0 fL [facility] MONOCYTES ABSOLUTE AUTO 0.9 High [facility] Monocytes/100 WBC (Bld) 6.3 % 1.7 - 12.0 % [facility] NEUTROPHILS ABSOLUTE AUTO 11.8 High [facility] Neutrophils/100 WBC (Bld) 81.9 % High 43.0 - 75.0 % [facility] Platelet mean volume (Bld) [Entitic vol] 10.2 fL 9.5 - 13.5 fL [facility] EO # 0 [facility] PLT 224 [facility] RBC 3.63 Low [facility] WBC 14.4 High [facility] US for pregnancyon TITLE OF EXAM: [...] report is generated using voice recognition reporting ([employer]). On occasion [employer] erroneously drops words from the report or [...] report is generated using voice recognition reporting ([employer]). On occasion PowerScribe erroneously drops words from the report or replaces the spoken word with similar sounding words. Please call with any questions/concerns regarding this report.* Dictated and transcribed 06/05/24/dpd This report has been electronically signed and approved by the interpreting radiologist. [facility] for pregnancyOrdered By: Yordan Duran on 06-06-2024 [facility] Work Phone: US OB LIMITED 1+ FETUSESon [...] report is generated using voice recognition reporting ([employer]). On occasion Power[employer]ribe erroneously drops words from the report or replaces the spoken word with similar sounding words. Please call with any questions/concerns regarding this report.* Dictated and transcribed 06/05/24/dpd This report has been electronically signed and approved by the interpreting radiologist. Normal Not Available US for pregnancyon Radiology Study observation (narrative) [facility] OB 14+ WEEKS ANATOMY SCAN on [...] 2.8 cm. Yolk sac diameter 0.3 cm. [place] rump length is 1.5 cm. heart rate [...] SURGICAL PATHOLOGY CONSULTATION Patient Name: ALTON DAVIS [facility] Rec: [id number] Path Number: [id number] [facility] [employer] [facility] [facility] ANATOMIC PATHOLOGY [address] [place] [address]. [place], [place] [address] [facility] BIOPHYSICAL PROFILE WO NON STRESS [...] Ajit Warner MD 12/09/21 Final result Normal [facility] Biophysical profile score 8/8. KUNAL 7.1. The findings were sent to the Radiology Results Communication Center at 10:15 am on 12/07/2021 to be communicated to a licensed caregiver. [facility] RIS CONSOLIDATED EXAMINATION: BIOPHYSICAL PROFILE WITHOUT NON-STRESS [...] fluid index 7.1 with MVP 2.8 cm. [facility] Ajit West MD - 12/09/2021 [...] to be communicated to a licensed caregiver. [facility] Phone: BIOPHYSICAL PROFILE WO NON STRESS TESTINGOrdered By: Ajit Warner on 12-09-2021 [facility] Phone: CBCon 12-08-2021 Erythrocyte distribution width (RBC) [Ratio] 14.3 % Normal 11.8-14.4 [facility] Comment on above: Performed By: #### C BC #### [facility] [address] [place] [address] Budget Analyst: Mohamud Lucas MD Hematocrit (Bld) [Volume fraction] 26.3 % Low 36.3-47.1 [facility] Comment on above: Performed By: #### C BC #### [facility] [address] [place] [address] Budget Analyst: Mohamud Lucas MD Hemoglobin (Bld) [Mass/Vol] 8.5 g/dL Low 11.9-15.1 [facility] Comment on above: Performed By: #### C BC #### [facility] [address] [place] [address] Budget Analyst: Mohamud Lucas MD MCH (RBC) [Entitic mass] 27.0 pg Normal 25.2-33.5 [facility] Comment on above: Performed By: #### C BC #### [address] [place], [place] [id number] Budget Analyst: Mohamud Lucas MD MCHC (RBC) [Mass/Vol] 32.3 g/dL Normal 28.4-34.8 [facility] Comment on above: Performed By: #### C BC #### [address] [place] [id number] Budget Analyst: Mohamud Lucas MD MCV (RBC) [Entitic vol] 83.5 fL Normal 82.6-102.9 [facility] Comment on above: Performed By: #### C BC #### [address] [place], [place] [id number] Budget Analyst: Mohamud Lucas MD NRBC Automated 0.0 per 100 WBC Normal 0.0 [facility] Comment on above: Performed By: #### C BC #### [address] [place], [facility] Budget Analyst: Mohamud Lucas MD Platelet mean volume (Bld) [Entitic vol] 11.1 fL Normal 8.1-13.5 [facility] Comment on above: Performed By: #### C BC #### [address] [place] [address] Budget Analyst: Mohamud Lucas MD Platelets (Bld) [#/Vol] 219 10*3/uL Normal 138-453 [facility] Comment on above: Performed By: #### C BC #### [facility] [address] [place] [address] Budget Analyst: Mohamud Lucas MD RBC (Bld) [#/Vol] 3.15 10*6/uL Low 3.95-5.11 [facility] Comment on above: Performed By: #### C BC #### [facility] [address] [place] [address] Budget Analyst: Mohamud Lucas MD WBC (Bld) [#/Vol] 20.6 10*3/uL High 3.5-11.3 [facility] Comment on above: Performed By: #### C BC #### [facility] [address] [place] [address] Budget Analyst: Mohamud Lucas MD Hematocrit (Bld) [Volume fraction] 26.3 % Low 36.3 - 47.1 % [facility] Hemoglobin.gastroin testinal spec 1 Ql (Stl) 8.5 g/dL Low 11.9 - 15.1 g/dL [facility] Interpretation and review of laboratory results Abnormal [facility] MCH (RBC) [Entitic mass] 27.0 pg 25.2 - 33.5 pg [facility] MCHC (RBC) [Mass/Vol] 32.3 g/dL 28.4 - 34.8 g/dL [facility] MCV (RBC) [Entitic vol] 83.5 fL 82.6 - 102.9 fL [facility] NRBC Automated 0.0 0.0 per 100 WBC [facility] Platelet distribution width (Bld) [Ratio] 14.3 % 11.8 - 14.4 % [facility] Platelet mean volume (Bld) [Entitic vol] 11.1 fL 8.1 - 13.5 fL [facility] Platelets (Bld) [#/Vol] 219 10*3/uL [facility] RBC (Bld) [#/Vol] 3.15 10*6/uL Low 3.95 - 5.1 1 m/uL [facility] WBC (Bld) [#/Vol] 20.6 10*3/uL High [facility] RhIg Workup (RhoGam)on 12-08 RhIg Workup (RhoGam) Blood Component Type MANUFACTURED PRODUCT Units Ordered 1 ABO/Rh(D) A NEGATIVE Antibody Screen NEGATIVE History Check NO PREVIOUS HISTORY Rhig Eligibility Patient Is A Candidate For Injection Eugenie NEGATIVE Du Antigen NOT TESTED Unit Number [id number] Blood Component Type RHIG Unit Division 00 Status of Unit REL FROM ALLOC Transfusion Status OK TO TRANSFUSE Normal [facility] Comment on above: Performed By: #### R HIGW #### [facility] [address] [place] [address] Budget Analyst: Mohamud Lucas MD CBC auto differentialon 11-14 Absolute Eos # 0.08 [facility] Absolute Immature Granulocyte 0.08 [facility] Absolute Lymph # 1.81 [facility] Absolute Jay # 0.88 [facility] Basophils (Bld) [#/Vol] 0.04 10*3/uL [facility] Basophils/100 WBC (Bld) 0 % 0 - 2 % [facility] Eosinophils/100 WBC (Bld) 1 % 1 - 4 % [facility] Hematocrit (Bld) [Volume fraction] 32.8 % Low 36.3 - 47.1 % [facility] Hemoglobin.gastroin testinal spec 1 Ql (Stl) 10.3 g/dL Low 11.9 - 15.1 g/dL [facility] Immature granulocytes/100 WBC (Bld) 1 % High 0 [facility] Interpretation and review of laboratory results Abnormal [facility] Lymphocytes/100 WBC (Bld) 15 % Low 24 - 43 % [facility] MCH (RBC) [Entitic mass] 26.5 pg 25.2 - 33.5 pg [facility] MCHC (RBC) [Mass/Vol] 31.4 g/dL 28.4 - 34.8 g/dL [facility] MCV (RBC) [Entitic vol] 84.5 fL 82.6 - 102.9 fL [facility] Monocytes/100 WBC (Bld) 7 % 3 - 12 % [facility] NRBC Automated 0.0 0.0 per 100 WBC [facility] Platelet distribution width (Bld) [Ratio] 14.2 % 11.8 - 14.4 % [facility] Platelet mean volume (Bld) [Entitic vol] 11.9 fL 8.1 - 13.5 fL [facility] Platelets (Bld) [#/Vol] 259 10*3/uL [facility] RBC (Bld) [#/Vol] 3.88 10*6/uL Low 3.95 - 5.1 1 m/uL [facility] Segmented neutrophils/100 WBC (Bld) 76 % High 36 - 65 % [facility] Segs Absolute 9.01 High [facility] WBC (Bld) [#/Vol] 11.9 10*3/uL High [facility] CBC with Diffon 12-07-2021 Abs. Basophil 0.04 k/uL Normal 0.00-0.20 [facility] Comment on above: Performed By: #### C DP #### [facility] [address] [place] [address] Budget Analyst: Mohamud Lucas MD Abs.Imm.Granulocyte 0.08 k/uL Normal 0.00-0.30 [facility] Comment on above: Performed By: #### C DP #### [facility] [address] [place] [address] Budget Analyst: Mohamud Lucas MD Abs.Neutrophil (Seg) 9.01 k/uL High 1.50-8.10 [facility] Comment on above: Performed By: #### C DP #### [facility] [address] [place] [address] Budget Analyst: Mohamud Lucas MD Basophils/100 WBC (Bld) 0 % Normal 0-2 [facility] Comment on above: Performed By: #### C DP #### [facility] [address] [place], [facility] Budget Analyst: Mohamud Lucas MD Eosinophils (Bld) [#/Vol] 0.08 10*3/uL Normal 0.00-0.44 [facility] Comment on above: Performed By: #### C DP #### [address] [place] [id number] Budget Analyst: Mohamud Lucas MD Eosinophils/100 WBC (Bld) 1 % Normal 1-4 [facility] Comment on above: Performed By: #### C DP #### [address] [place] [address] Budget Analyst: Mohamud Lucas MD Erythrocyte distribution width (RBC) [Ratio] 14.2 % Normal 11.8-14.4 [facility] Comment on above: Performed By: #### C DP #### [address] [place] [id number] Budget Analyst: Mohamud Lucas MD Hematocrit (Bld) [Volume fraction] 32.8 % Low 36.3-47.1 [facility] Comment on above: Performed By: #### C DP #### [address] [place] [phone] Budget Analyst: Mohamud Lucas MD Hemoglobin (Bld) [Mass/Vol] 10.3 g/dL Low 11.9-15.1 [facility] Comment on above: Performed By: #### C DP #### [address] [place] [phone] Budget Analyst: Mohamud Lucas MD Immature granulocytes/100 WBC (Bld) 1 % High 0 [facility] Comment on above: Performed By: #### C DP #### [address] [place] [phone] Budget Analyst: Mohamud Lucas MD Lymphocytes (Bld) [#/Vol] 1.81 10*3/uL Normal 1.10-3.70 [facility] Comment on above: Performed By: #### C DP #### [facility] [address] [place], [place] [id number] Budget Analyst: Mohamud Lucas MD Lymphocytes/100 WBC (Bld) 15 % Low 24-43 [facility] Comment on above: Performed By: #### C DP #### [facility] [address] [place], [place] [id number] Budget Analyst: Mohamud Lucas MD MCH (RBC) [Entitic mass] 26.5 pg Normal 25.2-33.5 [facility] Comment on above: Performed By: #### C DP #### [facility] [address] [place], [place] [id number] Budget Analyst: Mohamud Lucas MD MCHC (RBC) [Mass/Vol] 31.4 g/dL Normal 28.4-34.8 [facility] Comment on above: Performed By: #### C DP #### [address] [place] [address] Budget Analyst: Mohamud Lucas MD MCV (RBC) [Entitic vol] 84.5 fL Normal 82.6-102.9 [facility] Comment on above: Performed By: #### C DP #### [facility] [address] [place] [address] Budget Analyst: Mohamud Lucas MD Monocytes (Bld) [#/Vol] 0.88 10*3/uL Normal 0.10-1.20 [facility] Comment on above: Performed By: #### C DP #### [facility] [address] [place], [place] [id number] Budget Analyst: Mohamud Lucas MD Monocytes/100 WBC (Bld) 7 % Normal 3-12 [facility] Comment on above: Performed By: #### C DP #### [facility] [address] [place], [place] [id number] Budget Analyst: Mohamud Lucas MD Neutrophil (Seg) 76 % High 36-65 [facility] Comment on above: Performed By: #### C DP #### [facility] [address] [place], [place] [id number] Budget Analyst: Mohamud Lucas MD NRBC Automated 0.0 per 100 WBC Normal 0.0 [facility] Comment on above: Performed By: #### C DP #### [facility] [address] [place] [id number] Budget Analyst: Mohamud Lucas MD Platelet mean volume (Bld) [Entitic vol] 11.9 fL Normal 8.1-13.5 [facility] Comment on above: Performed By: #### C DP #### [facility] [address] [place], [place] [id number] Budget Analyst: Mohamud Lucas MD Platelets (Bld) [#/Vol] 259 10*3/uL Normal 138-453 [facility] Comment on above: Performed By: #### C DP #### [address] [place], [place] [id number] Budget Analyst: Mohamud Lucas MD RBC (Bld) [#/Vol] 3.88 10*6/uL Low 3.95-5.11 [facility] Comment on above: Performed By: #### C DP #### [facility] [address] [place], [place] [id number] Budget Analyst: Mohamud Lucas MD WBC (Bld) [#/Vol] 11.9 10*3/uL High 3.5-11.3 [facility] Comment on above: Performed By: #### C DP #### [facility] [address] [place], [place] [phone] Budget Analyst: Mohamud Lucas MD DRUG SCREEN MULTI URINEon Amphetamine Screen, Ur Negative NEGATIVE [facility] Barbiturate Screen, Ur Negative NEGATIVE [facility] Benzodiazepine Screen, Urine Negative NEGATIVE [facility] Buprenorphine Urine Negative NEGATIVE [facility] Cannabinoid Scrn, Ur Negative NEGATIVE [facility] Cocaine Metabolite, Urine Negative NEGATIVE [facility] Methadone Screen, Urine Negative NEGATIVE [facility] Methamphetamine, Urine Negative NEGATIVE [facility] Opiates, Urine Negative NEGATIVE [facility] Oxycodone Screen, Ur Negative NEGATIVE [facility] Phencyclidine, Urine Negative NEGATIVE [facility] Propoxyphene, Urine Negative NEGATIVE [facility] Tricyclic Antidepressants, Urine Negative NEGATIVE [facility] Comment on above: Drug screen results are to be used for medical purposes only. All positive results are unconfirmed. Testing for employment or legal uses should be sent to a reference laboratory for confirmation. [facility] Drug Scr, Abuse, Uron 2021 Amphetamine(s),Ur Negative Normal NEG [facility] Comment on above: Performed By: #### D AU #### [facility] [address] [place] [address] [place] [address] Budget Analyst: Mohamud Lucas MD Barbiturate(s),Ur Negative Normal NEG [facility] Comment on above: Performed By: #### D AU #### [facility] [address] [place] [address] [place] [address] Budget Analyst: Mohamud Lucas MD Benzodiazepine(s) Negative Normal NEG [facility] Comment on above: Performed By: #### D AU #### [facility] [address] [place] [address] [place] [address] Budget Analyst: Mohamud Lucas MD Buprenorphrine, Ur Negative Normal NEG [facility] Comment on above: Performed By: #### D AU #### [facility] [address] [place] [address] [place] [address] Budget Analyst: Mohamud Lucas MD Cannabinoid(s),Ur Negative Normal [facility] Comment on above: Performed By: #### D AU #### [facility] [address] [place] [address] Budget Analyst: Mohamud Lucas MD Cocaine Metabolite Negative Normal [facility] Comment on above: Performed By: #### D AU #### [facility] [address] [place], [place] [id number] Budget Analyst: Mohamud Lucas MD Methadone Ql (U) Negative Normal [facility] Comment on above: Performed By: #### D AU #### [facility] [address] [place], [place] [phone] Budget Analyst: Mohamud Lucas MD Methamphetamine, Ur Negative Normal [facility] Comment on above: Performed By: #### D AU #### [facility] [address] [place], [place] [phone] Budget Analyst: Mohamud Lucas MD Opiate(s), Ur Negative Normal [facility] Comment on above: Performed By: #### D AU #### [address] [place], [place] [phone] Budget Analyst: Mohaumd Lucas MD Oxycodone, Urine Negative Normal [facility] Comment on above: Performed By: #### D AU #### [facility] [address] [place], [place] [phone] Budget Analyst: Mohamud Lucas MD Phencyclidine, Ur Negative Normal [facility] Comment on above: Performed By: #### D AU #### [facility] [address] [place], [place] [id number] Budget Analyst: Mohamud Lucas MD Propoxyphene,Urine Negative Normal [facility] Comment on above: Performed By: #### D AU #### [address] [place], [place] [phone] Budget Analyst: Mohamud Lucas MD Tricyclic antidepressants Screen Ql (U) Negative Normal NEG [facility] Comment on above: Result Comment: Drug screen results are to be used for medical purposes only. All positive results are unconfirmed. Testing for employment or legal uses should be sent to a reference laboratory for confirmation. Performed By: #### D AU #### [address] [place] [address] Budget Analyst: Mohamud Lucas MD Microscopic Urinalysison - [facility] Bacteria, UA 2+ Abnormal None [facility] Epithelial Cells UA 2 TO 5 [facility] Interpretation and review of laboratory results Abnormal [facility] RBC, UA 0 TO 2 [facility] WBC, UA 2 TO 5 [facility] Yeast, UA PRESENCE NOTED Abnormal None [facility] OPERATIVE REPORTon 2 OPERATIVE REPORT [address] [address] OPERATIVE REPORT PATIENT NAME: ALTON DAVIS : 1990 MED REC NO: [id number] ROOM: [id number] ACCOUNT NO: [id number] ADMIT DATE: 12/07/2021 PROVIDER: Matt Light MD [...] low transverse uterine segment. ANESTHESIA: Epidural. [employer] DIV[employer]: Maulik Del Toro. 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 head was elevated and turned. [...] a running imbricating interlocking fashion. A few [id number] sutures were placed along the central inferior [...] were mentioned. MATT LIGHT MD [id number] Doc#: [id number] CC: Maulik Del Toro [facility] Surgical Pathologyon 022 Surgical Pathology (NOTE) [...] SURGICAL PATHOLOGY CONSULTATION Patient Name: ALTON DAVIS [facility] Rec: [id number] Path Number: [id number] [employer] [facility] ANATOM[facility] PATHOLOG[facility] [address] [place] [phone] [facility] Comment on above: Performed By: #### P PPVS #### [employer] [address] [place] [address] [id number] Budget Analyst: Dhaval Rao MD BIOPHYSICAL PROFILE WO NON STRESS TESTINGon 12-07-2021 Radiology Study observation (narrative) [facility] Work Phone: Urinalysison 12-07-2021 Bilirubin Urine Negative NEGATIVE [facility] Color, UA Yellow Yellow [facility] Glucose, Ur Negative NEGATIVE [facility] Interpretation and review of laboratory results Abnormal [facility] Ketones Ql (U) Negative NEGATIVE [facility] Leukocyte esterase Test strip Ql (U) Negative NEGATIVE [facility] Nitrite, Urine Negative NEGATIVE [facility] pH, UA 6.0 [facility] Protein, UA Negative NEGATIVE [facility] Specific [place], UA >1.030 High [facility] Turbidity UA Clear Clear [facility] Urine Hgb 1+ Abnormal NEGATIVE [facility] Urobilinogen, Urine Normal Normal [facility] Urinalysis, Routineon 2021 Bilirubin, SemiQt,Ur Negative Normal NEG [facility] Comment on above: Performed By: #### U MICAO, UA #### [address] [place] [address] Budget Analyst: Mohamud Lucas MD Blood, Urine 1+ Abnormal NEG [facility] Comment on above: Performed By: #### U MICAO, UA #### [facility] [address] [place] [place] [address] Budget Analyst: Mohamud Lucas MD Clarity (U) Clear Normal CLEAR [facility] Comment on above: Performed By: #### U MICAO, UA #### [facility] [address] [place] [place] [address] Budget Analyst: Mohamud Lucas MD Color (U) Yellow Normal YEL [facility] Comment on above: Performed By: #### U MICAO, UA #### [facility] [address] [place] [address] [place] [address] Budget Analyst: Mohamud Lucas MD Glucose Ql (U) Negative Normal NEG [facility] Comment on above: Performed By: #### U MICAO, UA #### [facility] [address] [place] [address] [place] [address] Budget Analyst: Mohamud Lucas MD Ketones Ql (U) Negative Normal NEG [facility] Comment on above: Performed By: #### U MICAO, UA #### [facility] [address] [place] [address] [place] [address] Budget Analyst: Mohamud Lucas MD Leukocyte esterase Test strip Ql (U) Negative Normal NEG [facility] Comment on above: Performed By: #### U MICAO, UA #### [facility] [address] [place] [address] Dr[place], [place] [phone] Budget Analyst: Mohamud Lucas MD Nitrite,Ur Negative Normal [facility] Comment on above: Performed By: #### U MICAO, UA #### [facility] [address] [place] [address] [place] [address] Budget Analyst: Mohamud Lucas MD PH,Ur 6.0 Normal 5.0-9.0 [facility] Comment on above: Performed By: #### U MICAO, UA #### [facility] [address] [place] [address] [place] [address] Budget Analyst: Mohamud Lucas MD Protein Ql (U) Negative Normal NEG [facility] Comment on above: Performed By: #### U MICAO, UA #### [facility] [address] [place] [address] [place] [address] Budget Analyst: Mohamud Lucas MD Spec. Ven[place],Ur >1.030 High 1.010-1.[address] [facility] Comment on above: Performed By: #### U MICAO, UA #### [facility] [address] [place] [address] Dr[place], [place] [phone] Budget Analyst: Mohamud Lucas MD Urobilinogen,Ur Normal Normal NORM [facility] Comment on above: Performed By: #### U MICAO, UA #### [facility] [address] [place], [place] [phone] Budget Analyst: Mohamud Lucas MD Urinalysis,Microon 2 ----- Normal [facility] Comment on above: Performed By: #### U MICAO, UA #### [facility] [address] [place], [place] [phone] Budget Analyst: Mohamud Lucas MD Bacteria 2+ Abnormal NONE [facility] Comment on above: Performed By: #### U MICAO, UA #### [facility] [address] [place], [place] [phone] Budget Analyst: Mohamud Lucas MD Epithelial cells LM Ql (Urine sed) 2 TO 5 Normal 0-25 [facility] Comment on above: Performed By: #### U MICAO, UA #### [facility] [address] [place] [address] Dr[place], [place] [phone] Budget Analyst: Mohamud Lucas MD Urine RBC's 0 TO 2 Normal 0-2 [facility] Comment on above: Performed By: #### U MICAO, UA #### [facility] [address] [place], [place] [phone] Budget Analyst: Mohamud Lucas MD Urine WBC's 2 TO 5 Normal 0-5 [facility] Comment on above: Performed By: #### U MICAO, UA #### [facility] [address] [place] [address] Budget Analyst: Mohamud Lucas MD Yeast PRESENCE NOTED Abnormal NONE [facility] Comment on above: Performed By: #### U MICAO, UA #### [facility] [address] [place], [place] [phone] Budget Analyst: Mohamud Lucas MD US OB Growthon 11-29-2021 [...] by Param Garnett on 11/30/2021 0718 Normal [facility] Plant Ecologist GBS, External Resulton 11-10 GBS, External Result Positive [facility] [employer] Phone: [facility] [employer] Phone: Q - STREPTOCOCCUS,GROUP B CU LTUREon 11-10-2021 STREPTOCOCCUS, GROUP B CULTURE SEE NOTE Abnormal [facility] [employer] Comment on above: Order Comment: [employer] [facility] performed at: [employer] [employer] [facility], [address] [place] [address], [address] [place] [address], [phone], Sewing Machine Attachment Tester: David Whalen MD [facility] Collection Date/Time: [id number] [facility] Results Received Date/Time: [id number] [facility] Reported Date/Time: [id number] Result Comment: STRE PTOCOCCUS, GROUP B CULTURE Micro Number: [id number] Test Status: Final Specimen Source: Vaginal/anorectal Specimen [...] 5 [id number] #### [facility] [address] [place] [address] US OB Growthon 10-03-2021 US OB Growth [...] Anterior fundal Grade I Weight (g) by Pndqvrbyzd01.5 % * These measurements result in an [...] by Param Garnett on 10/04/2021 0920 Normal [facility] Plant Ecologist No Panel Informationon 09-22 ABO, External Result Negative [facility] [employer] Phone: Rh Factor, External Result Negative [facility] Phone: [facility] Phone: Rhogam, External Resultson 0 09-21-2021 Rhogam, External Result given [facility] Phone: [facility] Phone: Complete Blood Counton 09-20 Erythrocyte distribution width (RBC) [Ratio] 12.5 % Normal 11.0-15.0 [facility] [employer] Comment on above: Performed By: #### G GLU, CBC #### [facility] [address] [place], [place] [id number] Hematocrit (Bld) [Volume fraction] 32.7 % Low 35.0-47.0 [facility] Plant Ec[employer] Comment on above: Performed By: #### G GLU, CBC #### [facility] [address] [place], [place] [id number] Hemoglobin (Bld) [Mass/Vol] 10.7 g/dL Low 11.6-15.5 [facility] Plant Ecologist Comment on above: Performed By: #### G GLU, CBC #### [facility] [address] [place], [place] [id number] MCH (RBC) [Entitic mass] 30.1 pg Normal 27.0-33.0 [facility] Plant Ecologist Comment on above: Performed By: #### G GLU, CBC #### [facility] [address] [place], [place] [id number] MCHC (RBC) [Mass/Vol] 32.7 g/dL Normal 32.0-36.0 [facility] Plant Ecologist Comment on above: Performed By: #### G GLU, CBC #### [facility] [address] [place], [place] [id number] MCV (RBC) [Entitic vol] 92 fL Normal 80-100 [facility] Plant Ecologist Comment on above: Performed By: #### G GLU, CBC #### [facility] [address] [place], [place] [id number] Platelet mean volume (Bld) [Entitic vol] 10.80 fL Normal 7.50-12.50 [place] Comment on above: Performed By: #### G GLU, CBC #### [facility] [address] [place], [place] [id number] Platelets (Bld) [#/Vol] 240 10*3/uL Normal 140-400 [facility] Comment on above: Performed By: #### G GLU, CBC #### [facility] [address] [place], [place] [id number] RBC (Bld) [#/Vol] 3.56 10*6/uL Low 3.90-5.20 [facility] Comment on above: Performed By: #### G GLU, CBC #### [facility] [address] [place], [place] [id number] RDW-SD 42.5 fL Normal 37.0-50.0 [facility] Comment on above: Performed By: #### G GLU, CBC #### [facility] [address] [place], [place] [id number] WBC (Bld) [#/Vol] 9.5 10*3/uL Normal 3.8-11.0 [facility] Specialist Comment on above: Performed By: #### G GLU, CBC #### [facility] [address] [place], [place] [id number] Glucose - Gestational Screen on 09-20-2021 Glucose [Mass/Vol] 128 mg/dL Normal <135 [facility] Specialist Comment on above: Result Comment: A va lue of 135 mg/dL or greater indicates the need for a full glucose tolerance test performed in the fasting state to determine if the patient has gestational diabetes. Performed By: #### G GLU, CBC #### [facility] [address] [place], [place] [id number] US OB Growthon 08-29-2021 US OB Growth [...] by Param Garnett on 09/02/2021 0850 Normal [facility] Plant Ecologist US OB 2nd/3rd Trimesteron US OB 2nd/3rd [...] 4.7 cm (20 weeks, 2 days) Head Ddsdrvgfdpmnl88.5 cm (20 weeks, 0 days) Abdominal Auuysxfsiztcl34.2 cm (20 weeks, 3 days) Femur Length [...] by Param Garnett on 09/20/2021 0947 Normal [facility] Plant Ecologist C. Trachomatis, External Res ulton 05-04-2021 C. Trachomatis, External Result Not detected [facility] Phone: HIV, External Resulton 05-04 HIV, External Result Non-Reactive [facility] Phone: Hepatitis B, External Result on 05-04-2021 Hep B, External Result Non-Reactive [facility] Phone: N. Gonorrhoeae, External Res ulton 05-04-2021 N. Gonorrhoeae, External Result Not detected [facility] Phone: No Panel Informationon 05-04 [facility] Phone: [facility] Phone: RPR, External Labon 05-04-20 RPR, External Result Non-Reactive [facility] Phone: Rubella Titer, External Resu lton 05-04-2021 Rubella Titer, External Result immune [facility] Phone: Cytologyon 06-05-2017 Cytology (NOTE)[id number] Y LABORATORIESCONSULTING PATHOLOGISTS CORPORATIONANATOMIC OCZIEUKEX[address] [place] [address]. [place], [place] [address] Fax: GYNECOLOGIC CYTOLOGY REPORTPatient Name: PARMINDER MASSEY#: [id number] #[id number]:1: Cervical material, (ThinPrep vial, Imaging-assisted review)Clinical HistoryNo LMP date givenContraceptive useR87.615 Unsatisfactory pap of cervixHigh Risk HPV DNA testing is requested if the diagnosis is ASC-USINTERPRETATIONCervi mariama material, (ThinPrep vial, Imaging-assisted review):Specimen Adequacy: Satisfactory for evaluation. - Endocervical/transformati on zone component present.Descriptive Diagnosis: Negative for intraepithelial lesion or malignancy.Shift in aniceto suggestive of bacterial vaginosis.Cytotechnologis t: DAFNE. Lazaro, ALFREDA(ASCP)Electronically Signed Outcd/06/14/2017 Normal [facility] DHEA Sulfateon 04-09-2017 DHEA Sulfate 107.0 ug/dL Normal 65-380 [facility] Comment on above: Result Comment: [employer] [address] [place] [address] Performed By: #### C YTCGP ####[address] [address] Cortisolon 04-06-2017 Cortisol 10.0 ug/dL Normal [facility] Comment on above: Result Comment: Georges isol Reference Range: AM 6.0-18.4 PM 2.7-10.[address] [address] Performed By: #### G ADILENE, CORTI, INSU, TSHX, PROL, FTST, DHES ####[address] [address] Glucoseon 04-06-2017 Glucose mass conc 83 mg/dL Normal 70-99 [facility] Comment on above: Result Comment: [employer] [address] [place] [address] Performed By: #### G ADILENE, CORTI, INSU, TSHX, PROL, FTST, DHES ####[address] [address] Insulinon 04-06-2017 Insulin 11.1 mU/L Normal [facility] Comment on above: Performed By: #### G ADILENE, CORTI, INSU, TSHX, PROL, FTST, DHES ####[address] [address] Reference Range Normal [facility] Comment on above: Result Comment: Fast in.6-24.930 min: 20-48528 min: 29-8890 min: 26-24681 min: 22-[address] [address] Performed By: #### Sade ADILENE, CORTI, INSU, TSHX, PROL, FTST, DHES ####[address] [address] Collection Info. NOT REPORTED Normal [facility] Comment on above: Performed By: #### Sade ADILENE, CORTI, INSU, TSHX, PROL, FTST, DHES ####[address] [address] Prolactinon 04-06-2017 Prolactin 35.67 ug/L High 4.79-23.30 [facility] Comment on above: Result Comment: The presence of macroprolactin may cause interference in female patients with various endocrinological diseases or during .[address] [address] Performed By: #### Sade ADILENE, CORTI, INSU, TSHX, PROL, FTST, DHES ####[address] [address] TSH w/reflex to FT4on 2016 Thyroid stimulating hormone (TSH) 1.54 m[IU]/L Normal 0.30-5.00 [facility] Comment on above: Result Comment: [address] [address] Performed By: #### G ADILENE, CORTI, INSU, TSHX, PROL, FTST, DHES ####[address] [address] Testosterone, Freeon 017 Sex Horm Bind Glob 133 nmol/L Normal 30-135 [facility] Comment on above: Performed By: #### G ADILENE, CORTI, INSU, TSHX, PROL, FTST, DHES ####[facility] [place] [address] Testosterone 27 ng/dL Normal 20-70 [facility] Comment on above: Performed By: #### G ADILENE, CORTI, INSU, TSHX, PROL, FTST, DHES ####[address] [place] [address] Testosterone,Free 1.7 pg/mL Normal 0.8-7.4 [facility] Comment on above: Result Comment: The concentration of free testosterone is derived from a mathematical expression based on the constant for the binding of testosterone to albumin and/or sex hormone binding globulin.[address] [address] Performed By: #### G ADILENE, CORTI, INSU, TSHX, PROL, FTST, DHES ####[address] [address] US PELVIS COMPLETEon 017 US PELVIS COMPLETE [...] free fluid in the cul-de-sac.Interpreted by:MATT Batresigned by:Ethna Armstrong MD04/06/17Final result Normal [facility] Chlamydia/GC DNA, TPon 03-29 Chlamydia Probe, TP Negative Normal NEG [facility] Comment on above: Result Comment: CHLA MYDIA TRACHOMATIS DNA not detected by nucleic acid amplification. Performed By: #### C YTCGP ####[address] [address] Gonorrhea Probe, TP Negative Normal NEG [facility] Comment on above: Result Comment: NEIS SERIA GONORRHOEAE DNA not detected by nucleic acid amplification.[address] [address] Performed By: #### C YTCGP ####[address] [address] Cytologyon 03-28-2017 Cytology (NOTE)[id number] Y LABORATORIESCONSULTING PATHOLOGISTS CORPORATIONANATOMIC [id number] [place] [phone] Fax: GYNECOLOGIC CYTOLOGY REPORTPatient Name: PARMINDER MASSEY#: [id number] #[id number]:1: Cervical material, (ThinPrep vial, Imaging-assisted review)Clinical HistoryNo LMP date sebgkF39.4 Encounter for screening for malignant neoplasm of [...] vaginosis.Cytotechnologis t: ALFREDA Izquierdo(ASCP)Electronically Signed Out04/04/2017 Normal [facility] Vaginitis DNA Probeon 2016 Vaginitis DNA [...] of vaginitis/vaginosis. Report Status FINAL 03/28/2017 Normal [facility] Comment on above: Performed By: #### V AGDNA ####[address] [place], [place] [id number] Vital Signs Date Time Vital Sign Value Performing Clinician Facility 08-19-2024 10:49-0500 Body mass index (BMI) [Ratio] 27.72 kg/m2 Maulik Floro CNM Work Phone: [facility] 08-19-2024 10:49-0500 Body weight 75.57 kg Maulik Floro CNM Work Phone: [facility] 08-19-2024 10:49-0500 Diastolic blood pressure 70 mm[Hg] Maulik Floro CNM Work Phone: [facility] 08-19-2024 10:49-0500 Systolic blood pressure 118 mm[Hg] Maulik Floro CNM Work Phone: [facility] 08-13-2024 10:52-0500 Body mass index (BMI) [Ratio] 27.46 kg/m2 Maulik Floro CNM Work Phone: [facility] 08-13-2024 10:52-0500 Body weight 74.84 kg Maulik Floro CNM Work Phone: [facility] 08-13-2024 10:52-0500 Diastolic blood pressure 60 mm[Hg] Maulik Floro CNM Work Phone: [facility] 08-13-2024 10:52-0500 Systolic blood pressure 108 mm[Hg] Maulik Floro CNM Work Phone: [facility] 08-06-2024 11:23-0500 Body mass index (BMI) [Ratio] 27.29 kg/m2 Maulik Floro CNM Work Phone: [facility] 08-06-2024 11:23-0500 Body weight 74.39 kg Maulik Floro CNM Work Phone: [facility] 08-06-2024 11:23-0500 Diastolic blood pressure 80 mm[Hg] Amulik Floro CNM Work Phone: [facility] 08-06-2024 11:23-0500 Systolic blood pressure 120 mm[Hg] Maulik Floro CNM Work Phone: [facility] 07-23-2024 10:07-0500 Body mass index (BMI) [Ratio] 27.29 kg/m2 Maulik Floro CNM Work Phone: [facility] 07-23-2024 10:07-0500 Body weight 74.39 kg Maulik Floro CNM Work Phone: [facility] 07-23-2024 10:07-0500 Diastolic blood pressure 80 mm[Hg] Maulik Floro CNM Work Phone: [facility] 07-23-2024 10:07-0500 Systolic blood pressure 120 mm[Hg] Maulik Floro CNM Work Phone: [facility] 06-25-2024 10:32-0500 Body mass index (BMI) [Ratio] 25.79 kg/m2 Maulik Floro CNM Work Phone: [facility] 06-25-2024 10:32-0500 Body weight 70.31 kg Maulik Floro CNM Work Phone: [facility] 06-25-2024 10:32-0500 Diastolic blood pressure 80 mm[Hg] Maulik Floro CNM Work Phone: [facility] 06-25-2024 10:32-0500 Systolic blood pressure 120 mm[Hg] Maulik Floro CNM Work Phone: [facility] 05-21-2024 09:23-0500 Body mass index (BMI) [Ratio] 24.13 kg/m2 Maulik Floro CNM Work Phone: [facility] 05-21-2024 09:23-0500 Body weight 65.77 kg Maulik Floro CNM Work Phone: [facility] 05-21-2024 09:23-0500 Diastolic blood pressure 80 mm[Hg] Maulik Floro CNM Work Phone: [facility] 05-21-2024 09:23-0500 Systolic blood pressure 120 mm[Hg] Maulik Floro CNM Work Phone: [facility] 04-23-2024 09:26-0400 Body mass index (BMI) [Ratio] 22.63 kg/m2 Maulik Floro CNM Work Phone: [facility] 04-23-2024 09:26-0400 Body weight 61.69 kg Maulik Floro CNM Work Phone: [facility] 04-23-2024 09:26-0400 Diastolic blood pressure 70 mm[Hg] Maulik Floro CNM Work Phone: [facility] 04-23-2024 09:26-0400 Systolic blood pressure 112 mm[Hg] Maulik Floro CNM Work Phone: [facility] 03-19-2024 09:31-0400 Body mass index (BMI) [Ratio] 21.8 kg/m2 Maulik Floro CNM Work Phone: [facility] 03-19-2024 09:31-0400 Body weight 59.42 kg Maulik Floro CNM Work Phone: [facility] 03-19-2024 09:31-0400 Diastolic blood pressure 72 mm[Hg] Maulik Floro CNM Work Phone: [facility] 03-19-2024 09:31-0400 Systolic blood pressure 112 mm[Hg] Maulik Floro CNM Work Phone: [facility] 12-10-2021 07:07-0400 Body temperature 98.1 [degF] Rodo Mason CNM Work Phone: [employer] 12-10-2021 07:07-0400 Diastolic blood pressure 65 mm[Hg] Rodo Mason CNM Work Phone: [facility] [email or web address] 12-10-2021 07:07-0400 Heart rate 81 /min Rodo Mason CNM Work Phone: [facility] [email or web address] 12-10-2021 07:07-0400 Respiratory rate 18 /min Rodo Mason CNM Work Phone: [facility] [email or web address] 12-10-2021 07:07-0400 Systolic blood pressure 114 mm[Hg] Rodo Mason CNM Work Phone: [facility] [email or web address] 12-08-2021 00:34-0400 SaO2% (BldA) [Mass fraction] 94 % Rodo Mason CNM Work Phone: [facility] [email or web address] 12-07-2021 05:40-0400 Body height 165.1 cm Rodo Mason CNM Work Phone: [facility] [employer] [facility] 12-07-2021 05:40-0400 Body mass index (BMI) [Ratio] 30.12 kg/m2 Rodo Mason CNM Work Phone: [facility] [email or web address] 12-07-2021 05:40-0400 Body weight 82.1 kg Rodo Mason CNM Work Phone: [facility] [email or web address] Encounters Encounter Date Encounter Type Care Provider [...] Evaluation and management of inpatient RODO P [facility] Start: 12-07-2021 End: 12-10-2021 Evaluation and management of inpatient Rodo Tafoya Simmons SOFTWARE BUSINESS ANALYST - CNM Work Phone: [facility] Labor and Delivery Comment on above: Third trimester preg corey Start: 06-24-2021 End: 06-24-2021 ambulatory ARINA FLORO Facility: Start: 06-06-2017 End: 06-06-2017 Ambulatory [facility] Start: 04-06-2017 End: 04-07-2017 Ambulatory [facility] Start: 03-28-2017 End: 03-29-2017 Ambulatory [facility] Procedures Date Procedure Procedure Detail Performing [...] Blood count complete automated Maulik Del Toro SOFTWARE BUSINESS ANALYST - CNM Work Phone: Start: 12-08-2021 RHO(D) IMMUNE GLOBUL IN, Maulik Del Toro SOFTWARE BUSINESS ANALYST - CNM Work Phone: Start: 12-07-2021 SURGICAL PATHOLOGY REPORT Matt Light MD Work Phone: Start: 12-07-2021 Blood count complete auto&auto difrntl wbc Rodo Bryce Schmidt SOFTWARE BUSINESS ANALYST - CNM Work Phone: Start: 12-07-2021 biophysical pr ofile w/o non-stress testing Rodo Simmons SOFTWARE BUSINESS ANALYST - CNM Work Phone: Start: 12-07-2021 Drug tst prsmv instr mnt chem analyzers pr date Rodo Schmidt SOFTWARE BUSINESS ANALYST - CNM Work Phone: Start: 12-07-2021 Urinalysis microscop ic only Rodo Simmons SOFTWARE BUSINESS ANALYST - CNM Work Phone: Start: 12-07-2021 Urnls dip stick/tabl et rgnt auto w/o microscopy Rodo Simmons SOFTWARE BUSINESS ANALYST - CNM Work Phone: Start: 11-10-2021 GBS, EXTERNAL RESULT Hi storical Provider Start: 09-22-2021 ABO, EXTERNAL RESULT Hi storical Provider Start: 09-22-2021 RH FACTOR, EXTERNAL RESULT Historical Provider Start: 09-21-2021 RHOGAM, EXTERNAL RESULT Historical Provider Start: 05-04-2021 C. TRACHOMATIS, EXTE RNAL RESULT Historical Provider Start: 05-04-2021 HEPATITIS B, EXTERNA L RESULT Historical Provider Start: 05-04-2021 HIV, EXTERNAL RESULT Wi elieical Provider Start: 05-04-2021 N. GONORRHOEAE, EXTE RNAL RESULT Historical Provider Start: 05-04-2021 RPR, EXTERNAL RESULT Hi storical Provider Start: 05-04-2021 RUBELLA TITER, EXTER NAL RESULT Historical Provider Start: 06-05-2017 Microscopic observat ion [Identifier] in Cervix by Cyto stain Rodo Simmons APRN - [facility] Work Phone: Start: 04-06-2017 CORTISOL TOTAL [...] section History of section Maulik Zeeshan Espinozao [facility] Work Phone: H/O: section History of section Maulik Zeeshan Espinozao CN Work Phone: H/O: section History of section Maulik L Olgao CN Work Phone: H/O: section History of section Maulik Zeeshan Espinozao CN Work Phone: H/O: section History of section Maulik L Olgao CN Work Phone: H/O: section History of section Maulik Zeeshan Espinozao [facility] Work Phone: H/O: section History of section Maulik Del Toro CNM Work Phone: Plan of Treatment Date Care Activity Detail Author Start: 09-03-2024 End: 09-03-2024 Patient encounter procedure 09/03/2024 10:30 AM EST Routine [facility] [address] [place] [address] Maulik Del Toro, CNM [address] [facility] [place] [address] [facility] Start: 08-27-2024 End: 08-27-2024 Patient encounter procedure 08/27/2024 10:30 AM EST Routine [facility] [address] [place] [address] Maulik Del Toro, CNM [address] [facility] [place] [address] [facility] Start: 08-19-2024 End: 08-19-2024 Patient encounter procedure 08/19/2024 10:15 AM EST Routine [facility] [address] [place] [address] Maulik Del Toro, CNM [address] [facility] [place] [address] [facility] Start: 08-13-2024 End: 08-13-2024 Patient encounter procedure 08/13/2024 10:30 AM EST Routine [facility] [address] [place] [address] Maulik Del Toro, CNM [address] [facility] [place] [address] [facility] Start: 08-06-2024 End: 08-06-2024 Patient encounter procedure 08/06/2024 11:30 AM EST Routine [facility] [address] [place] [address] Maulik Del Toro Zeeshan, CNM [address] [facility] [place] [address] [facility] Start: 07-23-2024 End: 07-23-2024 Patient encounter procedure 07/23/2024 10:00 AM EST Routine [facility] [address] [place] [address] Maulik Del Toro Zeeshan, CN [address] [facility] [place] [address] [facility] Start: 06-24-2024 End: 06-24-2024 Patient encounter procedure [facility] Comment on above: Arrived Start: 05-21-2024 End: 05-21-2024 Patient encounter procedure [facility] Comment on above: Arrived Start: 04-23-2024 End: 04-23-2024 Professional / ancillary services management 04/23/2024 10:00 AM EDT Ancillary Procedure [facility] [address] [id number] [facility] Start: 04-23-2024 End: 04-23-2024 Patient encounter procedure [facility] Comment on above: Arrived Start: 03-19-2024 End: 03-19-2025 US for US OB 14+ weeks anatomy scan Imaging Routine related condition in second trimester Expected: 03/19/2024, Expires: 03/19/2025 [facility] Work Phone: Comment on above: Expected: 03/19/2024 , Expires: 03/19/2025 Start: 03-16-2024 Influenza vaccination Influenza Vacc ine (#1) [facility] Start: 03-04-2024 Screening for malign ant neoplasm of cervix [facility] Start: 03-16-2022 Influenza vaccination Flu vacc ine (Season Ended) [facility] Start: 2020 Screening for malign ant neoplasm of cervix [facility] Start: 06-05-2020 Screening for malign ant neoplasm of cervix Pap smear [facility] [employer] Start: 2009 DTaP/Tdap/Td vaccine (1 - Tdap) DTaP/Tdap/Td vaccine (1 - Tdap) [facility] Start: 2008 Hepatitis C screening Hepatitis C sc reen [facility] [employer] Start: 2005 HIV screening HIV screen [facility] [employer] Start: 2002 Depression Screen Depression Screen [facility] [employer] Start: 1995 COVID-19 Vaccine (1) COVID-19 Vaccin e (1) [facility] [employer] Start: 1991 Varicella vaccine (1 of 2 - 2-dose childhood series) Varicella vaccine (1 of 2 - 2-dose childhood series) [facility] [employer] GBS swab GBS swab Lab Rou [place] 36 weeks gestation of Ordered: 08/19/2024 [employer] Work Phone: Comment on above: Ordered: 08/19/2024 Nonrebreather mask oxygen Nonrebreather mask oxygen Respiratory Care Routine As directed - RT (PRN) until discontinued starting 12/07/2021 [facility] [employer] Work Phone: Comment on above: As directed - RT (MS N) until discontinued starting 12/07/2021 Oxygen therapy [[facility] Data Set] Initiate Oxygen Therapy Protocol Respiratory Care Routine As Needed until discontinued starting 12/07/2021 [facility]: Comment on above: As Needed until disc ontinued starting 12/07/2021 RHOGAM RHOGAM POSTPAR MARCELINO Blood Bank [employer] Label Print 12/08/2021 7:15 AM EDT [facility] [employer] Work Phone: Spirometry panel Incentive drea metry Respiratory Care Routine Every 2hr while awake until discontinued starting 12/08/2021 [facility] [employer] Phone: Comment on above: Every 2hr while awak e until discontinued starting 12/08/2021 STREPTOCCOUS, GROUP B CULTURE STREPTOCCOUS, GROUP B CULTURE Lab Routine 08/19/2024 11:22 AM EST [employer] Work Phone: Immunizations Immunization Date Immunization Notes Care Provider Fa cili 12-07-2021 diphtheria, tetanus toxoids and acellular pertussis vaccine, unspecified formulation Rodo Simmons [facility] Work Phone: [employer] Work Phone: 12-07-2021 measles, mumps and rubella virus vaccine Rodo Simmons [facility] Work Phone: [employer] Work Phone: Payers Date Payer Category Payer Private Health Insurance [employer] [id number] 2022 Unknown [employer] [id number] 2022-Present [address] [place] [address] [id number] 2022 Unknown [id number] 2016 Unknown [id number] 1990 Unknown [id number] 2.16.840.1.214113.3.579.2. 593 1990 Unknown [id number] 2.16.840.1.248318.3.579.2. 173 1990 Unknown [id number] 2.16.840.1.894436.3.579.2. 1258 1990 Unknown [id number] 2.16.840.1.066608.3.579.2. 1258 1990 Unknown [id number] 2.16.840.1.301670.3.579.2. 1258 1990 Unknown [id number] 2.16.840.1.051054.3.579.2. 1258 1990 Unknown [id number] 2.16.840.1.174992.3.579.2. 1258 1990 Unknown [id number] 2.16.840.1.191477.3.579.2. 1258 1990 Unknown [id number] 2.16.840.1.123900.3.579.2. 1258 1990 Unknown [id number] 2.16.840.1.742045.3.579.2. 1258 1990 Unknown [id number] 2.16.840.1.118528.3.579.2. 1258 1990 Unknown [id number] 2.16.840.1.375579.3.579.2. 1258 1990 Unknown [id number] 2.16.840.1.952277.3.579.2. 1258 1990 Unknown [id number] 2.16.840.1.003208.3.579.2. 1258 1990 Unknown [id number] 2.16.840.1.593060.3.579.2. 1258 1990 Unknown [id number] 2.16.840.1.345721.3.579.2. 1258 1959 Unknown [id number] Social History Date Type Detail Facility Start: 03-28-2017 End: 06-20-2023 Tobacco smoking status AKIS Ex-smoker [facility] [employer] Phone: History of tobacco use Cigarette Smoker [facility] [employer] Phone: Start: 03-28-2017 End: 01-29-2024 Cigarettes smoked current (pack per day) - Reported 1 [facility] Phone: Start: 03-28-2017 End: 06-20-2023 Tobacco use and exposure Smokeless tobacco non-user [facility] [employer] Phone: Start: 12-07-2021 Alcohol intake Ex-drinker (finding) [facility] Phone: Start: 1990 Sex Assigned At Not on file [facility] [employer] Phone: Start: 11-27-2021 End: 12-07-2021 Exposure to SARS-CoV-2 (event) Not sure [facility] Phone: History of tobacco use Current smoker [facility] Start: 01-29-2024 Alcoholic beverage intake Lifetime non-drinker (finding) [facility] Start: 01-29-2024 Tobacco use panel [facility] Start: 05-21-2023 Alcohol Comment caffeine: 1-2 cups per day [facility] Start: 12-23-2023 [facility] Clinical Notes 12-10-2021 to 08-19-2024 Maulik Del Toro, [facility] - 08/19/2024 10:15 AM Kyler Del Toro, [facility] - 08/13/2024 10:30 AM Kyler Del Toro [facility] - 08/06/2024 11:30 AM Kyler Del Toro [facility] - 07/23/2024 10:00 AM ESTInstructions Note [...] pain and recurrent BPP and NST at [facility] The following portions of the chart [...] a routine visit. documented in this encounter [facility] 08-13-2024 History of Present illness Narrative Subjective [...] a routine visit. documented in this encounter [facility] 08-06-2024 History of Present illness Narrative [...] a routine visit. documented in this encounter [facility] 07-23-2024 History of Present illness Narrative [...] a routine visit. documented in this encounter [facility] 06-25-2024 History of Present illness Narrative [...] a routine visit. documented in this encounter [facility] 06-17-2024 Telephone encounter Note [facility]a [facility] needs lab result that has her blood type on it and Demo sheet faxed to [phone] [facility] 06-17-2024 Miscellaneous Notes Licha [facility] needs lab result that has her blood type on it and Demo sheet faxed to [phone] documented in this encounter [facility] 05-21-2024 History of Present illness Narrative [...] a routine visit. documented in this encounter [facility] 04-23-2024 History of Present illness Narrative [...] a routine visit. documented in this encounter [facility] 03-19-2024 History of Present illness Narrative [...] a routine visit. documented in this encounter [facility] 12-10-2021 Hospital Discharge instructions Lorin Arias, NESS - 12/10/2021 Follow-up with your OB doctor as specified. [facility] OB Department phone: Chikis Del Toro, MSN, SOFTWARE BUSINESS ANALYST, CNM [place] [address] DIET Eat a well balanced diet focusing on foods high in fiber and protein. Drink plenty of fluids especially water. To avoid constipation you may take a mild stool softener as recommended by your doctor or towel sorter. ACTIVITY Gradually increase your activity. Resume exercise regimen only after advice by your doctor or towel sorter. Avoid lifting anything heavier than a gallon of milk for SIX weeks. Avoid driving until your doctor or towel sorter has given their approval. Rise slowly from [...] medications as recommended by your doctor or towel sorter for pain If you develop a warm, [...] vitamins as directed by your doctor or towel sorter. Refer to the booklet in the folder/binder for more information. If you feel you need more assistance or have questions, please call Vibha Crump IBCLC, exchange consultant, at or the OB department to [...] they become loose or soiled. If used, Morton should be removed by your care provider. [...] your calf. [facility] encounter [facility] Phone: 12-10-2021 History of Present illness [...] provide urine sample. 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 Latest Code Status on File Code Status Date Activated Date Inactivated Comments Full Code 12/07/2021 11:34 PM Full Code 12/07/2021 5:30 AM 12/07/2021 11:33 PM Additional Source Comments INFORMATION SOURCE (unrecogn ized section and content) DATE CREATED AUTHOR 01/08/2018 [facility] DATE CREATED AUTHOR AUTHOR'S ORGANIZ ATION 12/02/2021 [facility] dical Specialist DATE CREATED AUTHOR AUTHOR'S ORGANIZ ATION 12/08/2021 [facility] DATE CREATED AUTHOR AUTHOR'S ORGANIZ ATION 01/15/2022 [facility] DATE CREATED AUTHOR AUTHOR'S ORGANIZ ATION 08/21/2024 [facility] dical Specialists EPIC Reason for Visit (unrecogniz ed section and content) Reason Comments Contractions Specialty Diagnoses / Procedures Referred By Yolis hudson Referred To Contact Diagnoses Uterine contractions Term intolerance to labor, delivered, current hospitalization Rodo Schmidt, [facility] [address] [place] [address] [facility] [address] [place] [address] Referral ID Status Reason Start Date Expiration Date Visits Re quested Visits Authorized [id number] 1 1 Ordered Prescriptions (unrec ognized section [...] (Due) 09 (Due)2099 (Due) 09 (Due)2099 (Due) zhbylnz-pbhrlx-lfmjr pertussis (BOOSTRIX) injection 0.5 mL 0.5 mL, [...] BE BASED ON THE PRIMARY CLINICAL RECORDS. [facility]. provides no warranty or guarantee of the accuracy or completeness of information in this document.
--- NOTE | 2024-09-03 09:34 | US_ITS ---
[place] [id number] Patient Name: ALTON LILLY MRN: [facility]:[id number] date: 1990 Sex: F Assigned Patient Location: [facility] Current Patient Location: Accession/Order Number: [id number] Exam Date: 09/03/2024 11:47 Report Date: 09/03/2024 11:50 At the request of: JEAN DICKERSON DO Procedure: US OB BPP w non-stress BIOPHYSICAL PROFILE: CLINICAL INFORMATION: Pre-term labor symptoms COMPARISON: 08/30/2024 TECHNIQUE: Multiple ultrasonographic scans of the lower abdomen and pelvis were obtained . The fetus is in the cephalic presentation. The reported gestational age is 38 weeks 3 days. The heart rate [id number] beats per minute. FINDINGS: TONE: 1 or more episodes of activity extension and flexion of extremity or opening and closing of the hand [Y] 2/2 GROSS BODY MOVEMENTS: 3 or more discrete body or limb movements [Y] 2/2 BREATHING MOVEMENTS: 1 or more episodes of breathing lasting at least 30 seconds [Y] 2/2 KUNAL: A single deepest vertical pocket of amniotic fluid greater than 2 cm [Y] 2/2 KUNAL: 12.5 cm. This is in normal range. Total score: 8/8 US/US OB BPP w non-stress IMPRESSION: NORMAL BIOPHYSICAL PROFILE. Impression dictated by: Sarika Bello M.D.09/03/2024 11:50 AM Dictation Location: [employer] Electronically authenticated by: [id number] Y Date: 09/03/2024 11:50
[2024-09-03 09:53] VITALS: BP 130/71; PULSE 93
== END 2024-09-03 10:23 | disposition home or self-care (01) ==
LOC: US 01:10 → FBC 09:10
PROVIDERS: PCP Midwife; Visit Provider Obstetrics & Gynecology
DX: O60.03 Preterm labor without delivery, third trimester (principal); Z3A.38 38 weeks gestation of pregnancy
CPT/HCPCS: 76818

== ENCOUNTER 2024-09-06 00:14 | Outpatient (OUT) | payer OTHER, SELFPAY ==
--- OUTSIDE RECORDS SUMMARY | 2024-09-06 00:17 | XMS_ITS | CCD ---
Author Organization [facility] Care Team Providers Care Wire Annealer Name Role Phone SONU GONZALEZ Unavailable Unavailable [...] 650 mg azithromycin 250 mg oral tablet (5 sources) Macrolide Antimicrobial Start: 08-26-2024 azithromycin (Zithromax) 250 [...] Active docusate sodium 50 mg / sennosides, nursing home 8.6 mg oral tablet (1 source) Start: [...] 5 mg predniSONE 20 mg oral tablet (5 sources) Start: 08-26-2024 predniSONE (Deltasone) 20 MG tablet [...] Active Problems Problem Classification Problem Date Documented Date Episodic/Chronic Abdominal pain (5 sources) Right lower [...] delivery without indication] Onset: 12-10-2021 Episodic Other complications of (4 sources) Finding related to ; Translations: [ related conditions, unspecified, second trimester] 03-19-2024 Episodic Other nervous system disorders (2 sources) Choroid plexus cyst; 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 Other and delivery including normal (20 sources) Third trimester ; Translations: [Encounter for supervision of normal , unspecified, third trimester] Onset: 12-07-2021 Resolved: 12-10-2021 Episodic Residual codes; unclassified (2 sources) Gestation period, 36 weeks; Translations: [36 weeks gestation of ] 08-19-2024 Episodic Unclassified (7 sources) Unsatisfactory cytologic smear of cervix; Translations: [Increased prolactin level] Onset: 04-10-2017 04-10-2017 Episodic Unclassified (1 source) Unspecified dyspareunia; Translations: [Unspecified dyspareunia] Onset: 04-06-2017 Viral infection (2 sources) Disease caused by 2019-nCoV; Translations: [COVID-19] 08-26-2024 Episodic Viral infection (1 source) COVID-19; Translations: [COVID-19] Onset: 06-28-2021 Past or Other Problems Problem Classification Problem Date Documented Da te Episodic/Chronic Other complications of (4 sources) Other viral diseases complicating , second trimester; Translations: [OTH VIRAL DZ COMP PREG SECOND TRI] Onset: 06-24-2021 Episodic Residual codes; unclassified (1 source) 16 weeks gestation of ; Translations: [16 WEEKS GESTATION OF ] Onset: 06-28-2021 Episodic Results Test Name Value Interpretation Reference Range Facility US OB BPP W NON-STRESS on 09-03-2024 [place] [address] Ultrasound Report Signed Patient: ALTON DAVIS MR#: [id number] : 1990 Acct:[id number] Age/Sex: 34 / F ADM Date: 09/03/24 Loc: US Attending Dr: Narayan Mratinez D.O. Ordering Physician: Narayan Martinez D.O. Date of Service: 09/03/24 Procedure(s): US OB BPP w non-stress Accession Number(s): [id number] cc: MAULIK DEL TORO APRN, CNM; Narayan Martinez D.O. [address] [address] Patient Name: ALTON DAVIS MRN: [facility]:[id number] date: 1990 Sex: F Assigned Patient Location: [facility] Current Patient Location: Accession/Order Number: [id number] Exam Date: 09/03/2024 11:47 Report Date: 09/03/2024 11:50 At the request of: NARAYAN MARTINEZ DO Procedure: US OB BPP w non-stress BIOPHYSICAL PROFILE: CLINICAL INFORMATION: Pre-term labor symptoms COMPARISON: 08/30/2024 TECHNIQUE: Multiple ultrasonographic scans of the lower abdomen and pelvis were obtained . The fetus is in the cephalic presentation. The reported gestational age is 38 weeks 3 days. The heart rate [id number] beats per minute. FINDINGS: TONE: 1 or more episodes of activity extension and flexion of extremity or opening and closing of the hand [Y] 2/2 GROSS BODY MOVEMENTS: 3 or more discrete body or limb movements [Y] 2/2 BREATHING MOVEMENTS: 1 or more episodes of breathing lasting at least 30 seconds [Y] 2/2 KUNAL: A single deepest vertical pocket of amniotic fluid greater than 2 cm [Y] 2/2 KUNAL: 12.5 cm. This is in normal range. Total score: 8/8 US/US OB BPP w non-stress IMPRESSION: NORMAL BIOPHYSICAL PROFILE. Impression dictated by: Sarika Bello M.D.09/03/2024 11:50 AM Dictation Location[facility] Electronically authenticated by: [id number] Y Date: 09/03/2024 11:50 Dictated By: Sarika Belol M.D. Signed By: 09/03/24 1153 DD/ 1150 TD/TT: Ventilator Specialist: [facility] Radiology, Radiologi MD cookie - 09/03/2024 [place] [address] Ultrasound Report Signed Patient: ALTON DAVIS MR#: [id number] : 1990 Acct:[id number] Age/Sex: 34 / F ADM Date: 09/03/24 Loc: US Attending Dr: Narayan Martinez D.O. Ordering Physician: Narayan Martinez D.O. Date of Service: 09/03/24 Procedure(s): US OB BPP w non-stress Accession Number(s): [id number] cc: MAULIK DEL TORO APRN, CNM; Narayan Martinez D.O. [address] [address] Patient Name: ALTON DAVIS MRN: [facility]:[id number] date: 1990 Sex: F Assigned Patient Location: [facility] Current Patient Location: Accession/Order Number: [id number] Exam Date: 09/03/2024 11:47 Report Date: 09/03/2024 11:50 At the request of: NARAYAN MARTINEZ DO Procedure: US OB BPP w non-stress BIOPHYSICAL PROFILE: CLINICAL INFORMATION: Pre-term labor symptoms COMPARISON: 08/30/2024 TECHNIQUE: Multiple ultrasonographic scans of the lower abdomen and pelvis were obtained . The fetus is in the cephalic presentation. The reported gestational age is 38 weeks 3 days. The heart rate eorrrvhp478 beats per minute. FINDINGS: TONE: 1 or more episodes of activity extension and flexion of extremity or opening and closing of the hand [Y] 2/2 GROSS BODY MOVEMENTS: 3 or more discrete body or limb movements [Y] 2/2 BREATHING MOVEMENTS: 1 or more episodes of breathing lasting at least 30 seconds [Y] 2/2 KUNAL: A single deepest vertical pocket of amniotic fluid greater than 2 cm [Y] 2/2 KUNAL: 12.5 cm. This is in normal range. Total score: 8/8 US/US OB BPP w non-stress IMPRESSION: NORMAL BIOPHYSICAL PROFILE. Impression dictated by: Sarika Bello M.D.09/03/2024 11:50 AM Dictation Location: [place] [address] Electronically authenticated by: [id number] Y Date: 09/03/2024 11:50 Dictated By: Sarika Bello M.D. Signed By: 09/03/24 1153 DD/ 1150 TD/TT: Ventilator Specialist: [facility] Rad[facility] Study observation (narrative) [facility] US OB BPP W NON-STRESS Ordered By: Radiologist Radiology on 09-03-2024 [facility] Work Phone: US OB BPP W NON-STRESS on 09-01-2024 The [place] [id number] Ultrasound Report Signed Patient: ALTON DAVIS MR#: [id number] : 1990 Acct:[id number] Age/Sex: 34 / F ADM Date: 08/30/24 [place] [facility] [place]: Narayan Martinez D.O. Ordering Physician: Narayan Martinez D.O. Date of Service: 08/30/24 Procedure(s): US OB BPP w non-stress Accession Number(s): [id number] cc: MAULIK DEL TORO APRN, CNM; Narayan Martinez D.O. The [place] [address] Patient Name: ALTON DAVIS MRN: [facility]:[id number] date: 1990 Sex: F Assigned Patient Location: [facility] Current Patient [place] [facility] Accession/Order Number: [id number] Exam Date: 08/30/2024 10:22 Report Date: 09/01/2024 16:30 At the request of: NARAYAN MARTINEZ Procedure: US OB BPP w non-stress EXAM: US OB BPP w non-stress HISTORY: Pre-term labor COMPARISON: 08/19/2024. 08/13/2024. 07/30/2024. TECHNIQUE: Biophysical profile ultrasound. FINDINGS: breathin gross body movements: 2 tone: 2 Qualitative amniotic fluid volume: 2 Amniotic fluid index of 14.5. cardiac rate of 155 bpm. US/US OB BPP w non-stress IMPRESSION: Biophysical profile score: 8 Electronically authenticated by: JOVI CANSECO Date: 09/01/2024 16:30 Dictated By: Jovi Canseco M.D. Signed By: 09/01/24 1633 DD/ 1630 TD/TT: Ventilator Specialist: [facility] Radiolognorm gary MD - 09/01/2024 [place] [address] Ultrasound Report Signed Patient: ALTON DAVIS MR#: [id number] : 1990 Acct:[id number] Age/Sex: 34 / F ADM Date: 08/30/24 Loc: [facility] Attending Dr: Narayan Martinez D.O. Ordering Physician: Narayan Martinez D.O. Date of Service: 08/30/24 Procedure(s): US OB BPP w non-stress Accession Number(s): [id number] cc: MAULIK DEL TORO APRN, CNM; Narayan Martinez D.O. [place] [id number] Patient Name: ALTON DAVIS MRN: [facility]:[id number] date: 1990 Sex: F Assigned Patient Location: [facility] Current [place] [facility] Accession/Order Number: [id number] Exam Date: 08/30/2024 10:22 Report Date: 09/01/2024 16:30 At the request of: NARAYAN MARTINEZ Procedure: US OB BPP w non-stress EXAM: US OB BPP w non-stress HISTORY: Pre-term labor COMPARISON: 08/19/2024. 08/13/2024. 07/30/2024. TECHNIQUE: Biophysical profile ultrasound. FINDINGS: breathin gross body movements: 2 tone: 2 Qualitative amniotic fluid volume: 2 Amniotic fluid index of 14.5. cardiac rate of 155 bpm. US/US OB BPP w non-stress IMPRESSION: Biophysical profile score: 8 Electronically authenticated by: JOVI CANSECO Date: 09/01/2024 16:30 Dictated By: Jovi Canseco M.D. Signed By: 09/01/24 163 DD/ 1630 TD/TT: Ventilator Specialist: [facility] Radiology Study observation (narrative) [facility] US OB BPP W NON-STRESS Ordered By: Radiologist Radiology on 09-01-2024 [facility] Work Phone: US OB BPP W NON-STRESS on 08-19-2024 [place] [address] Ultrasound Report Signed Patient: ALTON DAVIS MR#: [id number] : 1990 Acct:[id number] Age/Sex: 34 / F ADM Date: Loc: [facility] 255-[address]: MAULIK DEL TORO APRN, CNM Ordering Physician: MAULIK DEL TORO APRN, CNM Date of Service: 08/19/24 Procedure(s): US OB BPP w non-stress Accession Number(s): [id number] cc: MAULIK DEL TORO APRN, CNM [place] [address] Patient Name: ALTON DAVIS MRN: [facility]:[id number] date: 1990 Sex: F Assigned Patient Location: [facility] Current Patient Location: [facility] Accession/Order Number: [id number] Exam Date: 08/19/2024 13:00 Report Date: 08/19/2024 [...] Signed By: 08/19/24 1350 DD/ 1347 TD/TT: Ventilator Specialist: [facility] Radiology, Radiologi MD cookie - 08/19/2024 [place] [address] Ultrasound Report Signed Patient: ALTON DAVIS MR#: [id number] : 1990 Acct:[id number] Age/Sex: 34 / F ADM Date: Loc: [facility] 255-[address]: MAULIK DEL TORO APRN, CNM Ordering Physician: MAULIK DEL TORO APRN, CNM Date of Service: 08/19/24 Procedure(s): US OB BPP w non-stress Accession Number(s): [id number] cc: MAULIK DEL TORO APRN, CNM [place] [id number] Patient Name: ALTON DAVIS MRN: [facility]:[id number] date: 1990 Sex: F Assigned Patient Location: [facility] Current Patient Location: [facility] Accession/Order Number: [id number] Exam Date: 08/19/2024 13:00 Report Date: 08/19/2024 [...] Signed By: 08/19/24 1350 DD/ 1347 TD/TT: Ventilator Specialist: [facility] Radiology Study observation (narrative) [facility] US OB BPP W NON-STRESS Ordered By: Radiologist Radiology on 08-19-2024 [facility] [employer] Work Phone: US OB PLACENTAon 08-19-2024 [place] [address] Ultrasound Report Signed Patient: ALTON DAVIS MR#: [id number] : 1990 Acct:[id number] Age/Sex: 34 / F ADM Date: Loc: [facility] 255-[address]: MAULIK DEL TORO APRN, CNM Ordering Physician: MAULIK DEL TORO APRN, CNM Date of Service: 08/19/24 Procedure(s): US OB placenta Accession Number(s): [id number] cc: MAULIK DEL TORO APRN, CNM [place] [address] Patient Name: ALTON DAVIS MRN: [facility]:[id number] date: 1990 Sex: F Assigned Patient Location: [facility] Current Patient Location: [facility] Accession/Order Number: [id number] Exam Date: 08/19/2024 13:00 Report Date: 08/19/2024 [...] Signed By: 08/19/24 1349 DD/ 1346 TD/TT: Ventilator Specialist: [facility] Radiology, Radiologi MD cookie - 08/19/2024 [place] [address] Ultrasound Report Signed Patient: ALTON DAVIS MR#: [id number] : 1990 Acct:[id number] Age/Sex: 34 / F ADM Date: Loc: [facility] 255- Attending Dr: MAULIK DEL TORO APRN, CNM Ordering Physician: MAULIK DEL TORO APRN, CNM Date of Service: 08/19/24 Procedure(s): US OB placenta Accession Number(s): [id number] cc: MAULIK DEL TORO APRN, CNM [place] [address] Patient Name: ALTON DAVIS MRN: [facility]:[id number] date: 1990 Sex: F Assigned Patient Location: [facility] Current Patient Location: [facility] Accession/Order Number: [id number] Exam Date: 08/19/2024 13:00 Report Date: 08/19/2024 [...] Signed By: 08/19/24 1349 DD/ 1346 TD/TT: Ventilator Specialist: [facility] Radiology Study observation (narrative) [facility] US OB PLACENTAOrdered By: Ra rubio Radiology on 08-19-2024 [facility] Work Phone: US OB BPP W NON-STRESS on 08-13-2024 [place] [address] Ultrasound Report Signed Patient: ALTON DAVIS MR#: [id number] : 1990 Acct:[id number] Age/Sex: 34 / F ADM Date: 08/13/24 Loc: [facility] 258-[address]: Narayan Martinez D.O. Ordering Physician: Narayan Martinez D.O. Date of Service: 08/13/24 Procedure(s): US OB BPP w non-stress Accession Number(s): [id number] cc: MAULIK DEL TORO APRN, CNM; Narayan Martinez D.O. The [address] [address] Patient Name: ALTON DAVIS MRN: [facility]:[id number] date: 1990 Sex: F Assigned Patient Location: [facility] Current Patient Location: [facility] Accession/Order Number: [id number] Exam Date: 08/13/2024 09:15 Report Date: 08/13/2024 [...] M.D. Signed By: 08/13/24945 DD/ 3 TD/TT: Ventilator Specialist: [facility] Radiology, Radiologi MD cookie - 08/13/2024 [place] [address] Ultrasound Report Signed Patient: ALTON DAVIS MR#: [id number] : 1990 Acct:[id number] Age/Sex: 34 / F ADM Date: 08/13/24 Loc: [facility] 258-[address]: Narayan Martinez D.O. Ordering Physician: Narayan Martinez D.O. Date of Service: 08/13/24 Procedure(s): US OB BPP w non-stress Accession Number(s): [id number] cc: MAULIK DEL TORO APRN, CNM; Narayan Martinez D.O. The [place] [id number] Patient Name: ALTON DAVIS MRN: [facility]:[id number] date: 1990 Sex: F Assigned Patient Location: [facility] Current Patient Location: [facility] Accession/Order Number: [id number] Exam Date: 08/13/2024 09:15 Report Date: 08/13/2024 [...] M.D. Signed By: 08/13/24945 DD/ 3 TD/TT: Ventilator Specialist: [facility] Radiology Study observation (narrative) [facility] US OB BPP W NON-STRESS Ordered By: Radiologist Radiology on 08-13-2024 [facility] Work Phone: ALL CBC WITH AUTO DIFFon BASOPHILS ABSOLUTE AUTO 0 [facility] Basophils/100 WBC (Bld) 0.2 % 0.2 - 2.0 % [facility] Eosinophils/100 WBC (Bld) 0.2 % Low 0.9 - 7.0 % [facility] Erythrocyte distribution width (RBC) [Ratio] 12.6 % 11.0 - 15.0 % [facility] Hematocrit (Bld) [Volume fraction] 33.1 % Low 36.0 - 48.0 % [facility] Hemoglobin (Bld) [Mass/Vol] 11.1 g/dL Low 12.0 - 16.0 g/dL [facility] IMMATURE GRANULOCYTES ABS AUTO 0.16 High [facility] Immature granulocytes/100 WBC (Bld) 1.1 % High 0.0 - 0.5 % [facility] Interpretation and review of laboratory results Abnormal [facility] LYMPHOCYTES ABSOLUTE AUTO 1.5 [facility] Lymphocytes/100 WBC (Bld) 10.3 % Low 20.5 - 60.0 % [facility] MCH (RBC) [Entitic mass] 30.6 pg 26.7 - 34.0 pg [facility] MCHC (RBC) [Mass/Vol] 33.5 g/dL 29.9 - 35.2 g/dL [facility] MCV (RBC) [Entitic vol] 91.2 fL 81.0 - 99.0 fL [facility] MONOCYTES ABSOLUTE AUTO 0.9 High [facility] Monocytes/100 WBC (Bld) 6.3 % 1.7 - 12.0 % [facility] NEUTROPHILS ABSOLUTE AUTO 11.8 High [facility] Neutrophils/100 WBC (Bld) 81.9 % High 43.0 - 75.0 % [facility] Platelet mean volume (Bld) [Entitic vol] 10.2 fL 9.5 - 13.5 fL [facility] TBH EO # 0 [facility] TBH PLT 224 [facility] RBC 3.63 Low [facility] WBC 14.4 High [facility] CBC panel Auto (Bld)on 06-24 Erythrocyte distribution width (RBC) [Ratio] 12.6 % 11.0 - 15.0 % [facility] Hematocrit (Bld) [Volume fraction] 35.3 % 35.0 - 45.0 % [facility] Hemoglobin (Bld) [Mass/Vol] 11.7 g/dL 11.7 - 15.5 g/dL [facility] MCH (RBC) [Entitic mass] 30.5 pg 27.0 - 33.0 pg [facility] MCHC (RBC) [Mass/Vol] 33.1 g/dL 32.0 - 36.0 g/dL [facility] Comment on above: For adults, a slight decrease in the calculated MCHC value (in the range of 30 to 32 g/dL) is most likely not clinically significant; however, it should be interpreted with caution in correlation with other red cell parameters and the patient's clinical condition. MCV (RBC) [Entitic vol] 91.9 fL 80.0 - 100.0 fL [facility] Platelet mean volume (Bld) [Entitic vol] 10.3 fL 7.5 - 12.5 fL [facility] Platelets (Bld) [#/Vol] 232 10*3/uL [facility] RBC (Bld) [#/Vol] 3.84 10*6/uL [facility] WBC (Bld) [#/Vol] 9.5 10*3/uL [facility] Laboratory - Chemistry and C hemistry - challengeon 06-24-2024 Glucose 1 Hr post 50 g glucose PO [Mass/Vol] 88 mg/dL NINF - 135 mg/dL [facility] No Panel Informationon 06-24 Performing Organizat ion Information Site ID: [id number] Name[facility] Address: [address] [place] [id number] Director: Tri Cummings [facility] US for pregnancyon TITLE OF EXAM: OB [...] report is generated using voice recognition reporting (Attune Foodse). On occasion Kodablecribe erroneously drops words from the report or [...] report is generated using voice recognition reporting (Easel). On occasion PowerScribe erroneously drops words from the report or replaces the spoken word with similar sounding words. Please call with any questions/concerns regarding this report.* Dictated and transcribed 06/05/24/dpd This report has been electronically signed and approved by the interpreting radiologist. [facility] [employer] US for pregnancyOrdered By: Yordan Duran on 06-06-2024 [facility] [employer] Work Phone: OB LIMITED 1+ FETUSESon 1 08-05-2023 OB LIMITED 1+ FETUSES TITLE OF EXAM: [...] report is generated using voice recognition reporting (Easel). On occasion PowerScribe erroneously drops words from the report or replaces the spoken word with similar sounding words. Please call with any questions/concerns regarding this report.* Dictated and transcribed 06/05/24/dpd This report has been electronically signed and approved by the interpreting radiologist. Normal Not Available US for pregnancyon Radiology Study observation (narrative) [facility] US OB 14+ WEEKS ANATOMY SCAN on [...] 2.8 cm. Yolk sac diameter 0.3 cm. [place] rump length is 1.5 cm. heart rate [...] CONSULTATION Patient Name: ALTON DAVIS [facility] Rec: [id number] Path Number: [id number] [facility] ANATOMIC PATHOLOGY [address] [place] [address]. [place], [place] [address] [facility] BIOPHYSICAL PROFILE WO NON STRESS TESTINGon [...] Ajit Warner MD 12/09/21 Final result Normal [facility] Biophysical profile score 8/8. KUNAL 7.1. The findings were sent to the Radiology Results Communication Center at 10:15 am on 12/07/2021 to be communicated to a licensed caregiver. [facility] EXAMINATION: BIOPHYSICAL PROFILE WITHOUT NON-STRESS TEST 12/07/2021 [...] fluid index 7.1 with MVP 2.8 cm. [facility] Ajit Warner MD - 12/09/2021 EXAMINATION: BIOPHYSICAL [...] to be communicated to a licensed caregiver. [employer] Phone: BIOPHYSICAL PROFILE WO NON STRESS TESTINGOrdered By: Ajit Warner on 12-09-2021 [facility] [employer] Phone: CBCon 12-08-2021 Erythrocyte distribution width (RBC) [Ratio] 14.3 % Normal 11.8-14.4 [facility] Comment on above: Performed By: #### C BC #### [address] [place] [address] Baseball Pitcher: Mohamud Lucas MD Hematocrit (Bld) [Volume fraction] 26.3 % Low 36.3-47.1 [facility] Comment on above: Performed By: #### C BC #### [address] [place] [address] Baseball Pitcher: Mohamud Lucas MD Hemoglobin (Bld) [Mass/Vol] 8.5 g/dL Low 11.9-15.1 [facility] Comment on above: Performed By: #### C BC #### [address] [place] [address] Baseball Pitcher: Mohamud Lucas MD MCH (RBC) [Entitic mass] 27.0 pg Normal 25.2-33.5 [facility] Comment on above: Performed By: #### C BC #### [address] [place] [address] Baseball Pitcher: Mohamud Lucas MD MCHC (RBC) [Mass/Vol] 32.3 g/dL Normal 28.4-34.8 [facility] Comment on above: Performed By: #### C BC #### [address] [place], [place] [id number] Baseball Pitcher: Mohamud Lucas MD MCV (RBC) [Entitic vol] 83.5 fL Normal 82.6-102.9 [facility] Comment on above: Performed By: #### C BC #### [address] [place] [address] Baseball Pitcher: Mohamud Lucas MD NRBC Automated 0.0 per 100 WBC Normal 0.0 [facility] Comment on above: Performed By: #### C BC #### [address] [place] [address] Baseball Pitcher: Mohamud Lucas MD Platelet mean volume (Bld) [Entitic vol] 11.1 fL Normal 8.1-13.5 [facility] Comment on above: Performed By: #### C BC #### [facility] [address] [place] [id number] Baseball Pitcher: Mohamud Lucas MD Platelets (Bld) [#/Vol] 219 10*3/uL Normal 138-453 [facility] Comment on above: Performed By: #### C BC #### [facility] [address] [place] [id number] Baseball Pitcher: Mohamud Lucas MD RBC (Bld) [#/Vol] 3.15 10*6/uL Low 3.95-5.11 [facility] Comment on above: Performed By: #### C BC #### [facility] [address] [place] [id number] Baseball Pitcher: Mohamud Lucas MD WBC (Bld) [#/Vol] 20.6 10*3/uL High 3.5-11.3 [facility] Comment on above: Performed By: #### C BC #### [facility] [address] [place] [id number] Baseball Pitcher: Mohamud Lucas MD Hematocrit (Bld) [Volume fraction] [...] [#/Vol] 20.6 10*3/uL High [facility] RhIg Workup (RhoGam)on 12-08 RhIg Workup (RhoGam) Blood Component Type MANUFACTURED PRODUCT Units Ordered 1 ABO/Rh(D) A NEGATIVE Antibody Screen NEGATIVE History Check NO PREVIOUS HISTORY Rhig Eligibility Patient Is A Candidate For Injection Eugenie NEGATIVE Du Antigen NOT TESTED Unit Number [id number] Blood Component Type RHIG Unit Division 00 Status of Unit REL FROM ALLOC Transfusion Status OK TO TRANSFUSE Normal [facility] Comment on above: Performed By: #### R HIGW #### [facility] [address] [place] [address] Baseball Pitcher: Mohamud Lucas MD CBC auto differentialon 11-14 Absolute Eos # 0.08 [facility] Absolute Immature Granulocyte 0.08 [facility] Absolute Lymph # 1.81 [facility] Absolute Lane # 0.88 [facility] Basophils (Bld) [#/Vol] 0.04 10*3/uL [facility] WBC (Bld) [#/Vol] 11.9 10*3/uL High [facility] CBC with Diffon 12-07-2021 Abs. Basophil 0.04 k/uL Normal 0.00-0.20 [facility] Comment on above: Performed By: #### C DP #### [facility] [address] [place] [address] Baseball Pitcher: Mohamud Lucas MD Abs.Imm.Granulocyte 0.08 k/uL Normal 0.00-0.30 [facility] Comment on above: Performed By: #### C DP #### [facility] [address] [place], [place] [id number] Baseball Pitcher: Mohamud Lucas MD Abs.Neutrophil (Seg) 9.01 k/uL High 1.50-8.10 [facility] Comment on above: Performed By: #### C DP #### [address] [place], [facility] Baseball Pitcher: Mohamud Lucas MD Basophils/100 WBC (Bld) 0 % Normal 0-2 [facility] Comment on above: Performed By: #### C DP #### [address] [place], [place] [address] Baseball Pitcher: Mohamud Lucas MD Eosinophils (Bld) [#/Vol] 0.08 10*3/uL Normal 0.00-0.44 [facility] Comment on above: Performed By: #### C DP #### [address] [place], [facility] Baseball Pitcher: Mohamud Lucas MD Eosinophils/100 WBC (Bld) 1 % Normal 1-4 [facility] Comment on above: Performed By: #### C DP #### [address] [place], [facility] Baseball Pitcher: Mohamud Lucas MD Erythrocyte distribution width (RBC) [Ratio] 14.2 % Normal 11.8-14.4 [facility] Comment on above: Performed By: #### C DP #### [address] [place], [facility] Baseball Pitcher: Mohamud Lucas MD Hematocrit (Bld) [Volume fraction] 32.8 % Low 36.3-47.1 [facility] Comment on above: Performed By: #### C DP #### [address] [place], [facility] Baseball Pitcher: Mohamud Lucas MD Hemoglobin (Bld) [Mass/Vol] 10.3 g/dL Low 11.9-15.1 [facility] Comment on above: Performed By: #### C DP #### [facility] [address] [place] [address] Baseball Pitcher: Mohamud Lucas MD Immature granulocytes/100 WBC (Bld) 1 % High 0 [facility] Comment on above: Performed By: #### C DP #### [facility] [address] [place], [facility] Baseball Pitcher: Mohamud Lucas MD Lymphocytes (Bld) [#/Vol] 1.81 10*3/uL Normal 1.10-3.70 [facility] Comment on above: Performed By: #### C DP #### [address] [place], [facility] Baseball Pitcher: Mohamud Lucas MD Lymphocytes/100 WBC (Bld) 15 % Low 24-43 [facility] Comment on above: Performed By: #### C DP #### [address] [place], [facility] Baseball Pitcher: Mohamud Lucas MD MCH (RBC) [Entitic mass] 26.5 pg Normal 25.2-33.5 [facility] Comment on above: Performed By: #### C DP #### [address] [place], [facility] Baseball Pitcher: Mohamud Lucas MD MCHC (RBC) [Mass/Vol] 31.4 g/dL Normal 28.4-34.8 [facility] Comment on above: Performed By: #### C DP #### [address] [place] [address] Baseball Pitcher: Mohamud Lucas MD MCV (RBC) [Entitic vol] 84.5 fL Normal 82.6-102.9 [facility] Comment on above: Performed By: #### C DP #### [facility] [address] [place], [place] [id number] Baseball Pitcher: Mohamud Lucas MD Monocytes (Bld) [#/Vol] 0.88 10*3/uL Normal 0.10-1.20 [facility] Comment on above: Performed By: #### C DP #### [facility] [address] [place], [place] 9934083 Baseball Pitcher: Mohamud Lucas MD Monocytes/100 WBC (Bld) 7 % Normal 3-12 [facility] Comment on above: Performed By: #### C DP #### [facility] [address] [place], [facility] Baseball Pitcher: Mohamud Lucas MD Neutrophil (Seg) 76 % High 36-65 [facility] Comment on above: Performed By: #### C DP #### [facility] [address] [place], [place] [id number] Baseball Pitcher: Mohamud Lucas MD NRBC Automated 0.0 per 100 WBC Normal 0.0 [facility] Comment on above: Performed By: #### C DP #### [address] [place], [place] 0793983 Baseball Pitcher: Mohamud Lucas MD Platelet mean volume (Bld) [Entitic vol] 11.9 fL Normal 8.1-13.5 [facility] Comment on above: Performed By: #### C DP #### [facility] [address] [place], [place] [id number] Baseball Pitcher: Mohamud Lucas MD Platelets (Bld) [#/Vol] 259 10*3/uL Normal 138-453 [facility] Comment on above: Performed By: #### C DP #### [facility] [address] [place], [place] 6695083 Baseball Pitcher: Mohamud Lucas MD RBC (Bld) [#/Vol] 3.88 10*6/uL Low 3.95-5.11 [facility] Comment on above: Performed By: #### C DP #### [facility] [address] [place], [place] 0879383 Baseball Pitcher: Mohamud Lucas MD WBC (Bld) [#/Vol] 11.9 10*3/uL High 3.5-11.3 [facility] Comment on above: Performed By: #### C DP #### [facility] [address] [place] [address] Baseball Pitcher: Mohamud Lucas MD DRUG SCREEN MULTI URINEon Amphetamine Screen, Ur Negative NEGATIVE [facility] Barbiturate Screen, Ur Negative NEGATIVE [facility] Benzodiazepine Screen, Urine Negative NEGATIVE [facility] Buprenorphine Urine Negative NEGATIVE [facility] Cannabinoid Scrn, Ur Negative NEGATIVE [facility] Cocaine Metabolite, Urine Negative NEGATIVE [facility] Methadone Screen, Urine Negative NEGATIVE [facility] Methamphetamine, Urine Negative NEGATIVE [facility] Opiates, Urine Negative NEGATIVE [facility] Oxycodone Screen, Ur Negative NEGATIVE [facility] Phencyclidine, Urine Negative NEGATIVE [facility] Propoxyphene, Urine Negative NEGATIVE [facility] Tricyclic Antidepressants, Urine Negative NEGATIVE [facility] Comment on above: Drug screen results are to be used for medical purposes only. All positive results are unconfirmed. Testing for employment or legal uses should be sent to a reference laboratory for confirmation. [facility] Drug Scr, Abuse, Uron 2021 Amphetamine(s),Ur Negative Normal NEG [facility] Comment on above: Performed By: #### D AU #### [facility] [address] [place], [place] 7380083 Baseball Pitcher: Mohamud Lucas MD Barbiturate(s),Ur Negative Normal NEG [facility] Comment on above: Performed By: #### D AU #### [facility] [address] [place] [address] Dr. [place], [place] [phone] Baseball Pitcher: Mohamud Lucas MD Benzodiazepine(s) Negative Normal NEG [facility] Comment on above: Performed By: #### D AU #### [facility] [address] [place], [place] [id number] Baseball Pitcher: Mohamud Lucas MD Buprenorphrine, Ur Negative Normal NEG [facility] Comment on above: Performed By: #### D AU #### [facility] [address] [place], [place] 2823583 Baseball Pitcher: Mohamud Lucas MD Cannabinoid(s),Ur Negative Normal NEG [facility] Comment on above: Performed By: #### D AU #### [facility] [address] [place] [address] Dr. [place], [place] 7940183 Baseball Pitcher: Mohamud Lucas MD Cocaine Metabolite Negative Normal [facility] Comment on above: Performed By: #### D AU #### [facility] [address] [place] [address] Dr. [place], [place] [id number] Baseball Pitcher: Mohamud Lucas MD Methadone Ql (U) Negative Normal [facility] Comment on above: Performed By: #### D AU #### [facility] [address] [place] [address] Dr. [place], [place] [phone] Baseball Pitcher: Mohamud Lucas MD Methamphetamine, Ur Negative Normal [facility] Comment on above: Performed By: #### D AU #### [facility] [address] [place], [place] 6562583 Baseball Pitcher: Mohamud Lucas MD Opiate(s), Ur Negative Normal [facility] Comment on above: Performed By: #### D AU #### [facility] [address] [place], [place] [id number] Baseball Pitcher: Mohamud Lucas MD Oxycodone, Urine Negative Normal [facility] Comment on above: Performed By: #### D AU #### [facility] [address] [place] [address] Dr. [place], [place] [phone] Baseball Pitcher: Mohamud Lucas MD Phencyclidine, Ur Negative Normal NEG [facility] Comment on above: Performed By: #### D AU #### [facility] [address] [place] [address] [place] [address] Baseball Pitcher: Mohamud Lucas MD Propoxyphene,Urine Negative Normal NEG [facility] Comment on above: Performed By: #### D AU #### [facility] [address] [place] [address] Baseball Pitcher: Moahmud Lucas MD Tricyclic antidepressants Screen Ql (U) Negative Normal NEG [facility] Comment on above: Result Comment: Drug screen results are to be used for medical purposes only. All positive results are unconfirmed. Testing for employment or legal uses should be sent to a reference laboratory for confirmation. Performed By: #### D AU #### [facility] [address] [place] [address] [place] [address] Baseball Pitcher: Mohamud Lucas MD Microscopic Urinalysison - [facility] Bacteria, UA 2+ Abnormal None [facility] Epithelial Cells UA 2 TO 5 [facility] Interpretation and review of laboratory results Abnormal [facility] RBC, UA 0 TO 2 [facility] WBC, UA 2 TO 5 [facility] Yeast, UA PRESENCE NOTED Abnormal None [facility] OPERATIVE REPORTon OPERATIVE REPORT [address] [place] [address] OPERATIVE REPORT PATIENT NAME: ALTON DAVIS : 1990 MED REC NO: [id number] ROOM: Formerly named [facility] ACCOUNT NO: [id number] ADMIT DATE: 12/07/2021 PROVIDER: Matt Light MD [...] section, low transverse uterine segment. ANESTHESIA: Epidural. SHIP STEWARD: Maulik Del Toro. ESTIMATED BLOOD LOSS: 600 [...] was extended in a semilunar fashion with white mixing operator's fingers. head was elevated and turned. [...] a running imbricating interlocking fashion. A few [id number] sutures were placed along the central inferior [...] were mentioned. MATT LIGHT MD [id number] Doc#: [id number] CC: Maulik Del Toro [facility] Surgical Pathologyon 022 Surgical Pathology (NOTE) [...] CONSULTATION Patient Name: ALTON DAVIS [facility] Rec: [id number] Path Number: [id number] [facility] ANATOMIC PATHOLOGY [address], [place] [address] Normal [facility] Comment on above: Performed By: #### P PPVS #### [address] [place] [address] Baseball Pitcher: Dhaval Rao MD BIOPHYSICAL PROFILE WO NON STRESS TESTINGon 12-07-2021 Radiology Study observation (narrative) [facility] Work Phone: Urinalysison 12-07-2021 Bilirubin Urine Negative NEGATIVE [facility] Color, UA Yellow Yellow [facility] Glucose, Ur Negative NEGATIVE [facility] Interpretation and review of laboratory results Abnormal [facility] Ketones Ql (U) Negative NEGATIVE [facility] Leukocyte esterase Test strip Ql (U) Negative NEGATIVE [facility] Nitrite, Urine Negative NEGATIVE [facility] pH, UA 6.0 [facility] Protein, UA Negative NEGATIVE [facility] Specific [place], UA >1.030 High [facility] Turbidity UA Clear Clear [facility] Urine Hgb 1+ Abnormal NEGATIVE [facility] Urobilinogen, Urine Normal Normal [facility] Urinalysis, Routineon 2021 Bilirubin, SemiQt,Ur Negative Normal NEG [facility] Comment on above: Performed By: #### U MICAO, UA #### [facility] [address] [place] [address] Baseball Pitcher: Mohamud Lucas MD Blood, Urine 1+ Abnormal NEG [facility] Comment on above: Performed By: #### U MICAO, UA #### [facility] [address] [place], [place] 9194083 Baseball Pitcher: Mohamud Lucas MD Clarity (U) Clear Normal CLEAR [facility] Comment on above: Performed By: #### U MICAO, UA #### [facility] [address] [place] [address] Dr. [place], [place] [phone] Baseball Pitcher: Mohamud Lucas MD Color (U) Yellow Normal YEL [facility] Comment on above: Performed By: #### U MICAO, UA #### [facility] [address] [place] [address] [place] [address] Baseball Pitcher: Mohamud Lucas MD Glucose Ql (U) Negative Normal NEG [facility] Comment on above: Performed By: #### U MICAO, UA #### [address] [place], [place] 4542383 Baseball Pitcher: Mohamud Lucas MD Ketones Ql (U) Negative Normal NEG [facility] Comment on above: Performed By: #### U MICAO, UA #### [address] [place], [place] [id number] Baseball Pitcher: Mohamud Lucas MD Leukocyte esterase Test strip Ql (U) Negative Normal NEG [facility] Comment on above: Performed By: #### U MICAO, UA #### [facility] [address] [place] [address] Dr. [place], [place] [phone] Baseball Pitcher: Mohamud Lucas MD Nitrite,Ur Negative Normal NEG [facility] Comment on above: Performed By: #### U MICAO, UA #### [facility] [address] [place] [address] Dr. [place], [place] 5382983 Baseball Pitcher: Mohamud Lucas MD PH,Ur 6.0 Normal 5.0-9.0 [facility] Comment on above: Performed By: #### U MICAO, UA #### [facility] [address] [place] [address] [place] [address] Baseball Pitcher: Mohamud Lucas MD Protein Ql (U) Negative Normal NEG [facility] Comment on above: Performed By: #### U MICAO, UA #### [facility] [address] [place] [address] Baseball Pitcher: Mohamud Lucas MD Spec. [place],Ur >1.030 High 1.010-1.020 [facility] Comment on above: Performed By: #### U MICAO, UA #### [facility] [address] [place], [place] 7695883 Baseball Pitcher: Mohamud Lucas MD Urobilinogen,Ur Normal Normal NORM [facility] Comment on above: Performed By: #### U MICAO, UA #### [facility] [address] [place] [address] Baseball Pitcher: Mohamud Lucas MD Urinalysis,Microon 2 ----- Normal [facility] Comment on above: Performed By: #### U MICAO, UA #### [address] [place], [place] 0463883 Baseball Pitcher: Mohamud Lucas MD Bacteria 2+ Abnormal NONE [facility] Comment on above: Performed By: #### U MICAO, UA #### [facility] [address] [place], [place] 5942583 Baseball Pitcher: Mohamud Lucas MD Epithelial cells LM Ql (Urine sed) 2 TO 5 Normal 0-25 [facility] Comment on above: Performed By: #### U MICAO, UA #### [facility] [address] [place] [address] Baseball Pitcher: Mohamud Lucas MD Urine RBC's 0 TO 2 Normal 0-2 [facility] Comment on above: Performed By: #### U MICAO, UA #### [facility] [address] [place], [place] 6318983 Baseball Pitcher: Mohamud Lucas MD Urine WBC's 2 TO 5 Normal 0-5 [facility] Comment on above: Performed By: #### U DANY UA #### [facility] [address] [place], [place] 0973083 Baseball Pitcher: Mohamud Lucas MD Yeast PRESENCE NOTED Abnormal NONE [facility] Comment on above: Performed By: #### U DANY, UA #### [facility] [address] [place] [address] Baseball Pitcher: Mohamud Lucas MD US OB Growthon 11-29-2021 [...] by Param Garnett on 11/30/2021 0718 Normal [facility] [employer] Specialist GBS, External Resulton 11-10 GBS, External Result Positive [employer] Work Phone: [facility] [employer] Work Phone: Q - STREPTOCOCCUS,GROUP B CU LTUREon 11-10-2021 STREPTOCOCCUS, GROUP B CULTURE SEE NOTE Abnormal [facility] Comment on above: Order Comment: [facility] performed at: [employer] [facility], [address], [address] [facility], [place], [address], Beading Sawyer: David Whalen MD [facility] Collection Date/Time: [id number] [facility] Results Received Date/Time: [id number] [facility] Reported Date/Time: [id number] Result Comment: STRE PTOCOCCUS, GROUP B CULTURE Micro Number: [id number] Test Status: Final Specimen Source: Vaginal/anorectal Specimen [...] 5 [id number] #### [facility] [address] [place] [address] US OB Growthon 10-03-2021 US OB Growth [...] Anterior fundal Grade I Weight (g) by Pusgrfball25.5 % * These measurements result in an [...] by Param Garnett on 10/04/2021 0920 Normal [facility] No Panel Informationon 09-22 ABO, External Result Negative [employer] Phone: Rh Factor, External Result Negative [employer] Phone: [employer] Phone: Rhogam, External Resultson 0 09-21-2021 Rhogam, External Result given [employer] Phone: [employer] Phone: Complete Blood Counton 09-20 Erythrocyte distribution width (RBC) [Ratio] 12.5 % Normal 11.0-15.0 [facility] Comment on above: Performed By: #### G GLU, CBC #### [facility] [address] [place], [place] [id number] Hematocrit (Bld) [Volume fraction] 32.7 % Low 35.0-47.0 [facility] Comment on above: Performed By: #### G GLU, CBC #### [facility] [address] [place], [place] [id number] Hemoglobin (Bld) [Mass/Vol] 10.7 g/dL Low 11.6-15.5 [facility] Comment on above: Performed By: #### G GLU, CBC #### [facility] [address] [place], [place] [id number] MCH (RBC) [Entitic mass] 30.1 pg Normal 27.0-33.0 [facility] Comment on above: Performed By: #### G GLU, CBC #### [facility] [address] [place], [place] [id number] MCHC (RBC) [Mass/Vol] 32.7 g/dL Normal 32.0-36.0 [facility] Comment on above: Performed By: #### G GLU, CBC #### [facility] [address] [place], [place] [id number] MCV (RBC) [Entitic vol] 92 fL Normal 80-100 [facility] Comment on above: Performed By: #### G GLU, CBC #### [facility] [address] [place], [place] [id number] Platelet mean volume (Bld) [Entitic vol] 10.80 fL Normal 7.50-12.50 [facility] Comment on above: Performed By: #### G GLU, CBC #### [facility] [address] [place], [place] [id number] Platelets (Bld) [#/Vol] 240 10*3/uL Normal 140-400 [facility] Comment on above: Performed By: #### G GLU, CBC #### [facility] [address] [place], [place] [id number] RBC (Bld) [#/Vol] 3.56 10*6/uL Low 3.90-5.20 [facility] Technical Operations Specialist Comment on above: Performed By: #### G GLU, CBC #### [facility] [address] [place], [place] [id number] RDW-SD 42.5 fL Normal 37.0-50.0 [facility] Operations Specialist Comment on above: Performed By: #### G GLU, CBC #### [facility] [address] [place], [place] [id number] WBC (Bld) [#/Vol] 9.5 10*3/uL Normal 3.8-11.0 [facility] Technical Operations Specialist Comment on above: Performed By: #### G GLU, CBC #### [facility] [address] [place], [place] [id number] Glucose - Gestational Screen on 09-20-2021 Glucose [Mass/Vol] 128 mg/dL Normal <135 [facility] Technical Operations Specialist Comment on above: Result Comment: A va lue of 135 mg/dL or greater indicates the need for a full glucose tolerance test performed in the fasting state to determine if the patient has gestational diabetes. Performed By: #### G GLU, CBC #### [facility] [address] [place], [place] [id number] US OB Growthon 08-29-2021 US OB Growth [...] by Param Garnett on 08/30/2021 0926 The KUANL on the original report was accidentally typed incorrectly. The correct AFT for this exam of 14.0 cm. Report reported and signed by Param Garnett on 09/02/2021 0850 Normal [facility] Technical Operations Specialist OB 2nd/3rd Trimesteron US OB 2nd/3rd Trimester [...] 4.7 cm (20 weeks, 2 days) Head Ileocsvoccnjc35.5 cm (20 weeks, 0 days) Abdominal Zqaaphzgpmplx00.2 cm (20 weeks, 3 days) Femur Length [...] by Param Garnett on 09/20/2021 0947 Normal [facility]ist C. Trachomatis, External Res ulvirtua voorhees 05-04-2021 C. Trachomatis, External Result Not detected [employer] Phone: HIV, External Resulton 05-04 HIV, External Result Non-Reactive [employer] Phone: Hepatitis B, External Result on 05-04-2021 Hep B, External Result Non-Reactive [employer] Phone: N. Gonorrhoeae, External Res ulton 05-04-2021 N. Gonorrhoeae, External Result Not detected [employer] Phone: No Panel Informationon 05-04 [employer] Phone: [employer] Phone: RPR, External Labon 05-04-20 RPR, External Result Non-Reactive [employer] Phone: Rubella Titer, External Resu lton 05-04-2021 Rubella Titer, External Result immune [employer] Phone: Cytologyon 06-05-2017 Cytology (NOTE)[id number] Y LABORATORIESCONSULTING PATHOLOGISTS CORPORATIONANATOMIC TCVAPKATG[address] [place] [phone] Fax: GYNECOLOGIC CYTOLOGY REPORTPatient Name: PARMINDER MASSEY#: [id number] #[id number]: Cervical material, (ThinPrep vial, Imaging-assisted review)Clinical HistoryNo LMP date givenContraceptive useR87.615 Unsatisfactory pap of cervixHigh Risk HPV DNA testing is requested if the diagnosis is ASC-USINTERPRETATIONCervi mariama material, (ThinPrep vial, Imaging-assisted review):Specimen Adequacy: Satisfactory for evaluation. - Endocervical/transformati on zone component present.Descriptive Diagnosis: Negative for intraepithelial lesion or malignancy.Shift in aniceto suggestive of bacterial vaginosis.Cytotechnologis t: DAFNE. Lazaro, CT(ASCP)Electronically Signed Outcd/06/14/2017 Normal [facility] DHEA Sulfateon 04-09-2017 DHEA Sulfate 107.0 ug/dL Normal 65-380 [facility] Comment on above: Result Comment: [employer] [address] [place] [address] Performed By: #### C YTCGP ####[address] [address] Cortisolon 04-06-2017 Cortisol 10.0 ug/dL Normal [facility] Comment on above: Result Comment: Georges isol Reference Range: AM 6.0-18.4 PM 2.7-10.[address] [address] Performed By: #### G ADILENE, CORTI, INSU, TSHX, PROL, FTST, DHES ####[address] [address] Glucoseon 04-06-2017 Glucose mass conc 83 mg/dL Normal 70-99 [facility] Comment on above: Result Comment: [employer] [address] [place] [address] Performed By: #### G ADILENE, CORTI, INSU, TSHX, PROL, FTST, DHES ####[address] [address] Insulinon 04-06-2017 Insulin 11.1 mU/L Normal [facility] Comment on above: Performed By: #### G ADILENE, CORTI, INSU, TSHX, PROL, FTST, DHES ####[address] [address] Reference Range Normal [facility] Comment on above: Result Comment: Fast in.6-24.930 min: 20-07040 min: 29-8890 min: 26-73340 min: 22-[address] [address] Performed By: #### Sade ADILENE, CORTI, INSU, TSHX, PROL, FTST, DHES ####[address] [address] Collection Info. NOT REPORTED Normal [facility] Comment on above: Performed By: #### G ADILENE, CORTI, INSU, TSHX, PROL, FTST, DHES ####[address] [address] Prolactinon 04-06-2017 Prolactin 35.67 ug/L High 4.79-23.30 [facility] Comment on above: Result Comment: The presence of macroprolactin may cause interference in female patients with various endocrinological diseases or during .[facility] [employer] [address] [place] [address] Performed By: #### G ADILENE, CORTI, INSU, TSHX, PROL, FTST, DHES ####[address] [address] TSH w/reflex to FT4on 2016 Thyroid stimulating hormone (TSH) 1.54 m[IU]/L Normal 0.30-5.00 [facility] Comment on above: Result Comment: [address] [address] Performed By: #### G ADILENE, CORTI, INSU, TSHX, PROL, FTST, DHES ####[address] [address] Testosterone, Freeon 017 Sex Horm Bind Glob 133 nmol/L Normal 30-135 [facility] Comment on above: Performed By: #### G ADILENE, CORTI, INSU, TSHX, PROL, FTST, DHES ####[address] [address] Testosterone 27 ng/dL Normal 20-70 [facility] Comment on above: Performed By: #### G ADILENE, CORTI, INSU, TSHX, PROL, FTST, DHES ####[address] [address] Testosterone,Free 1.7 pg/mL Normal 0.8-7.4 [facility] Comment on above: Result Comment: The concentration of free testosterone is derived from a mathematical expression based on the constant for the binding of testosterone to albumin and/or sex hormone binding globulin.[address] [address] Performed By: #### G ADILENE, CORTI, INSU, TSHX, PROL, FTST, DHES ####[address] [address] US PELVIS COMPLETEon 017 US PELVIS COMPLETE [...] Batresigned by:Ethan Armstrong MD04/06/17Final result Normal [facility] Chlamydia/GC DNA, TPon 03-29 Chlamydia Probe, TP Negative Normal NEG [facility] Comment on above: Result Comment: CHLA MYDIA TRACHOMATIS DNA not detected by nucleic acid amplification. Performed By: #### C YTCGP ####[address] [address] Gonorrhea Probe, TP Negative Normal NEG [facility] Comment on above: Result Comment: NEIS SERIA GONORRHOEAE DNA not detected by nucleic acid amplification.[address] [address] Performed By: #### C YTCGP ####[address] [address] Cytologyon 03-28-2017 Cytology (NOTE)[id number] Y LABORATORIESCONSULTING PATHOLOGISTS CORPORATIONANATOMIC GYFFYWSHR[address] [place] [id number] Fax: GYNECOLOGIC CYTOLOGY REPORTPatient Name: PARMINDER MASSEY#: [id number] #[id number]:1: Cervical material, (ThinPrep vial, Imaging-assisted review)Clinical HistoryNo LMP date pfyphP72.4 Encounter for screening for malignant neoplasm of [...] of bacterial vaginosis.Cytotechnologis t: ALFREDA Izquierdo(ASCP)Electronically Signed Out/04/04/2017 Normal [facility] Vaginitis DNA Probeon 2016 Vaginitis DNA [...] vaginitis/vaginosis. Report Status FINAL 03/28/2017 Normal [facility] Comment on above: Performed By: #### V AGDNA ####[facility] [address] [place], [place] [id number] Vital Signs Date Time Vital Sign Value Performing Clinician Facility 09-03-2024 10:44-0500 Body mass index (BMI) [Ratio] 28.29 kg/m2 [employer] Work Phone: [facility] 09-03-2024 10:44-0500 Body weight 77.11 kg Maulik Floro [facility] Work Phone: [facility] 09-03-2024 10:44-0500 Diastolic blood pressure 100 mm[Hg] Maulik OLSETo [facility] Work Phone: [facility] Comment on above: repeat 130/78 09-03-2024 10:44-0500 Systolic blood pressure 150 mm[Hg] Maulik OLSETo [facility] Work Phone: [facility] Comment on above: repeat 130/78 08-19-2024 10:49-0500 Body mass index (BMI) [Ratio] 27.72 kg/m2 Maulik OLSETo [facility] Work Phone: [facility] 08-19-2024 10:49-0500 Body weight 75.57 kg Maulik Floro CNM Work Phone: [facility] 08-19-2024 10:49-0500 Diastolic blood pressure 70 mm[Hg] Maulik Floro CNM Work Phone: [facility] 08-19-2024 10:49-0500 Systolic blood pressure 118 mm[Hg] Maulik Floro CNM Work Phone: [facility] 08-13-2024 10:52-0500 Body mass index (BMI) [Ratio] 27.46 kg/m2 Maulik Floro CNM Work Phone: [facility] 08-13-2024 10:52-0500 Body weight 74.84 kg Maulik Floro CNM Work Phone: [facility] 08-13-2024 10:52-0500 Diastolic blood pressure 60 mm[Hg] Maulik Floro CNM Work Phone: [facility] 08-13-2024 10:52-0500 Systolic blood pressure 108 mm[Hg] Maulik Floro CNM Work Phone: [facility] 08-06-2024 11:23-0500 Body mass index (BMI) [Ratio] 27.29 kg/m2 Maulik Floro CNM Work Phone: [facility] 08-06-2024 11:23-0500 Body weight 74.39 kg Maulik Floro CNM Work Phone: [facility] 08-06-2024 11:23-0500 Diastolic blood pressure 80 mm[Hg] Maulik Floro CNM Work Phone: [facility] 08-06-2024 11:23-0500 Systolic blood pressure 120 mm[Hg] Maulik Floro CNM Work Phone: [facility] 07-23-2024 10:07-0500 Body mass index (BMI) [Ratio] 27.29 kg/m2 Maulik Floro CNM Work Phone: [facility] 07-23-2024 10:07-0500 Body weight 74.39 kg Maulik Floro CNM Work Phone: [facility] 07-23-2024 10:07-0500 Diastolic blood pressure 80 mm[Hg] Maulik Floro CNM Work Phone: [facility] 07-23-2024 10:07-0500 Systolic blood pressure 120 mm[Hg] Maulik Floro CNM Work Phone: [facility] 06-25-2024 10:32-0500 Body mass index (BMI) [Ratio] 25.79 kg/m2 Maulik Floro CNM Work Phone: [facility] 06-25-2024 10:32-0500 Body weight 70.31 kg Maulik Floro CNM Work Phone: [facility] 06-25-2024 10:32-0500 Diastolic blood pressure 80 mm[Hg] Maulik Floro CNM Work Phone: [facility] 06-25-2024 10:32-0500 Systolic blood pressure 120 mm[Hg] Maulik Floro CNM Work Phone: [facility] 06-24-2024 09:27-0500 Body mass index (BMI) [Ratio] 25.63 kg/m2 Maulik Floro CNM Work Phone: [facility] 06-24-2024 09:27-0500 Body weight 69.85 kg Maulik Floro CNM Work Phone: [facility] 05-21-2024 09:23-0500 Body mass index (BMI) [Ratio] 24.13 kg/m2 Maulik Floro CNM Work Phone: [facility] 05-21-2024 09:23-0500 Body weight 65.77 kg Maulik Floro CNM Work Phone: [facility] 05-21-2024 09:23-0500 Diastolic blood pressure 80 mm[Hg] Maulik Floro CNM Work Phone: [facility] 05-21-2024 09:23-0500 Systolic blood pressure 120 mm[Hg] Maulik Floro CNM Work Phone: [facility] 04-23-2024 09:26-0400 Body mass index (BMI) [Ratio] 22.63 kg/m2 Maulik Floro CNM Work Phone: [facility] 04-23-2024 09:26-0400 Body weight 61.69 kg Maulik Floro CNM Work Phone: [facility] 04-23-2024 09:26-0400 Diastolic blood pressure 70 mm[Hg] Maulik Floro CNM Work Phone: [facility] 04-23-2024 09:26-0400 Systolic blood pressure 112 mm[Hg] Maulik Floro CNM Work Phone: [facility] 03-19-2024 09:31-0400 Body mass index (BMI) [Ratio] 21.8 kg/m2 Maulik Floro CNM Work Phone: [facility] 03-19-2024 09:31-0400 Body weight 59.42 kg Maulik Floro CNM Work Phone: [facility] 03-19-2024 09:31-0400 Diastolic blood pressure 72 mm[Hg] Maulik Floro CNM Work Phone: [facility] 03-19-2024 09:31-0400 Systolic blood pressure 112 mm[Hg] Maulik Floro CNM Work Phone: [facility] 12-10-2021 07:07-0400 Body temperature 98.1 [degF] Rodo Simmons CUTTING TABLE OPERATOR FIRST - CNM Work Phone: [facility] 12-10-2021 07:07-0400 Diastolic blood pressure 65 mm[Hg] Rodo Simmons APRN - CNM Work Phone: [facility] 12-10-2021 07:07-0400 Heart rate 81 /min oRdo Simmons APRN - CNNeal Work Phone: [facility] [employer] 12-10-2021 07:07-0400 Respiratory rate 18 /min Rodo Mason CNNeal Work Phone: [facility] [employer] 12-10-2021 07:07-0400 Systolic blood pressure 114 mm[Hg] Rodo Mason CNNeal Work Phone: [facility] [employer] 12-08-2021 00:34-0400 SaO2% (BldA) [Mass fraction] 94 % Rodo Mason CNNeal Work Phone: [facility] [employer] 12-07-2021 05:40-0400 Body height 165.1 cm Rodo Simmons APRN - CNNeal Work Phone: [facility] [employer] 12-07-2021 05:40-0400 Body mass index (BMI) [Ratio] 30.12 kg/m2 Rodo Simmons APRN Marlon GILES Work Phone: [facility] [employer] 12-07-2021 05:40-0400 Body weight 82.1 kg Rodo Mason CNM Work Phone: [facility] [employer] Encounters Encounter Date Encounter Type Care Provider Facility Start: 09-03-2024 End: 09-03-2024 Clinisync Result Encounter Generic External Data Provider [facility] Unsolicited Start: 09-03-2024 End: 09-03-2024 Clinisync Result Encounter Generic External Data Provider [facility] External Department Unsolicited Start: 09-03-2024 End: 09-03-2024 Subsequent care visit Maulik YOUNG Work Phone: [facility] Comment on above: Encounter for superv ision of other normal , third trimester (Primary Dx); History of section Start: 09-03-2024 ambulatory MAULIK DEL TORO Not Yudelka ilable Start: 09-01-2024 End: 09-01-2024 Clinisync Result Encounter Generic External Data Provider [facility] External Department Unsolicited Start: 09-01-2024 End: 09-01-2024 Clinisync Result Encounter Generic External Data Provider [facility] External Department Unsolicited Start: 08-26-2024 End: 08-26-2024 Orders Only Maulik Espinozao CNM Work Phone: [facility] Comment on above: COVID (Primary Dx); COVID-19 Start: 08-19-2024 End: 08-19-2024 Bamboo flowsheet Maulik L Floro CNM Work Phone: [facility] Start: 08-19-2024 End: 08-21-2024 Bamboo flowsheet Maulik L Floro CNM Work Phone: [facility] Start: 08-19-2024 End: 08-19-2024 Clinisync Result Encounter Maulik L Floro CNM Work Phone: [facility] Unsolicited Start: 08-19-2024 End: 08-21-2024 External Result Encounter Maulik L Floro CNM Work Phone: [facility] Unsolicited Start: 08-19-2024 End: 08-19-2024 ambulatory MAULIK L FLORO Not Available Start: 08-19-2024 End: 08-19-2024 Subsequent care visit Maulik L Floro CNM [...] 08-13-2024 End: 08-13-2024 Subsequent care visit Maulik L Floro CNM Work Phone: [facility] Comment on above: Encounter for superv ision of other normal , third trimester (Primary Dx); History of section Start: 08-06-2024 End: 08-06-2024 Subsequent care visit Maulik Espinozao CNM Work Phone: [facility] Comment [...] 07-23-2024 End: 07-23-2024 Subsequent care visit Maulik Espinozao CNM Work Phone: [facility] Comment [...] End: 06-25-2024 Subsequent care visit Maulik Zeeshan Espinozao CNM Work Phone: [facility] Comment on above: Encounter for superv ision of other normal , third trimester (Primary Dx); History of section Start: 06-24-2024 End: 06-24-2024 Bamboo flowsheet Maulik Zeeshan Espinozao CNM Work Phone: [facility] Start: 06-24-2024 End: 06-24-2024 Bamboo flowsheet Maulik L Floro CNM Work Phone: [facility] Start: 06-24-2024 End: 06-24-2024 Subsequent care visit Maulik Zeeshan Espinozao CNM Work Phone: [facility] Comment on above: Screening for iron d eficiency anemia; Screening for diabetes mellitus; related condition in third trimester Start: 06-24-2024 End: 06-24-2024 ambulatory MAULIK L FLORO Not Available Start: 06-17-2024 End: 06-17-2024 Telephone encounter Maulik Zeeshan Espinozao CNM Work Phone: [facility] Start: 06-05-2024 End: 06-05-2024 ambulatory MAULIK L FLORO Not Available Start: 05-21-2024 End: 05-21-2024 Bamboo flowsheet Maulik L Floro CNM Work Phone: [facility] Start: 05-21-2024 End: 05-21-2024 Bamboo flowsheet Maulik L Floro CNM Work Phone: [facility] Start: 05-21-2024 End: 05-21-2024 Subsequent care visit Maulik Zeeshan Espinozao CNM Work Phone: [facility] Comment [...] Evaluation and management of inpatient RODO SHAW [facility] Start: 12-07-2021 End: 12-10-2021 Evaluation and management of inpatient Rodo Simmons CUTTING TABLE OPERATOR FIRST - CNM Work Phone: [facility] Labor and Delivery Comment on above: Third trimester preg corey Start: 06-24-2021 End: 06-24-2021 ambulatory RAINA FLORO Facility: Start: 06-06-2017 End: 06-06-2017 Ambulatory SONU K [facility] Start: 04-06-2017 End: 04-07-2017 Ambulatory [facility] Start: 03-28-2017 End: 03-29-2017 Ambulatory [facility] Procedures Date Procedure Procedure Detail Performing Clinician Start: 09-03-2024 US OB BPP W NON-STRESS Generic External Data Provider Start: 09-01-2024 US OB BPP W NON-STRESS Generic External Data Provider Start: 08-19-2024 US OB BPP W NON-STRESS Maulik L Floro CNM Work Phone: Start: 08-19-2024 US OB PLACENTA Maulik L Floro CNM Work Phone: Start: 08-19-2024 STREPTOCCOUS, GROUP B CULTURE Maulik L Floro CNM Work Phone: Start: 08-13-2024 US OB BPP W NON-STRESS Generic External Data Provider Start: 07-27-2024 ALL CBC WITH AUTO DIFF Narayan Juan DO Work Phone: Start: 06-24-2024 Blood count complete automated Maulik L Floro CNM Work Phone: Start: 06-24-2024 GLUCOSE, GESTATIONAL SCREEN (50G)-135 CUTOFF Maulik L Floro CNM Work Phone: Start: 12-08-2021 Blood count complete automated Maulik Floro CUTTING TABLE OPER[employer] - CNM Work Phone: Start: 12-08-2021 RHO(D) IMMUNE GLOBUL IN, Maulik Floro CUTTING TABLE OPERATOR FIRST - CNM Work Phone: Start: 12-07-2021 SURGICAL PATHOLOGY REPORT Matt Light MD Work Phone: Start: 12-07-2021 Blood count complete auto&auto difrntl wbc Rodo Shaw CUTTING TABLE OPERATOR FIRST - [facility] Work Phone: Start: 12-07-2021 biophysical pr ofile w/o non-stress testing Rodo Lottie Simmons CUTTING TABLE OPERATOR [employer] - [facility] Work Phone: Start: 12-07-2021 Drug tst prsmv instr mnt chem analyzers pr date Rodo Wu Brayan CUTTING TABLE OPER[employer] - [facility] Work Phone: Start: 12-07-2021 Urinalysis microscop ic only Rodo Simmons CUTTING TABLE OPER[employer] - [facility] Work Phone: Start: 12-07-2021 Urnls dip stick/tabl et rgnt auto w/o microscopy Rodo Simmons CUTTING TABLE OPER[employer] - [facility] Work Phone: Start: 11-10-2021 GBS, EXTERNAL RESULT Ma storical Provider Start: 09-22-2021 ABO, EXTERNAL RESULT Ma storical Provider Start: 09-22-2021 RH FACTOR, EXTERNAL RESULT Historical Provider Start: 09-21-2021 RHOGAM, EXTERNAL RESULT Historical Provider Start: 05-04-2021 C. TRACHOMATIS, EXTE RNAL RESULT Historical Provider Start: 05-04-2021 HEPATITIS B, EXTERNA L RESULT Historical Provider Start: 05-04-2021 HIV, EXTERNAL RESULT Ma storical Provider Start: 05-04-2021 N. GONORRHOEAE, EXTE RNAL RESULT Historical Provider Start: 05-04-2021 RPR, EXTERNAL RESULT Ma storical Provider Start: 05-04-2021 RUBELLA TITER, EXTER NAL RESULT Historical Provider Start: 06-05-2017 Microscopic observat ion [Identifier] in Cervix by Cyto stain Rodo Simmons CUTTING TABLE OPER[employer] - [facility] Work Phone: Start: 04-06-2017 CORTISOL TOTAL SONU FRA SER Start: 04-06-2017 DHEA-SULFATE SONU DE LA ROSASE R Start: 04-06-2017 GLUCOSE, RANDOM SONU FR [...] section History of section Maulik Zeeshan Espinozao CNM Work Phone: H/O: section History of section Maulik Zeeshan Espinozao CNM Work Phone: H/O: section History of section Maulik Zeeshan Espinozao CNM Work Phone: H/O: section History of section Maulik Zeeshan Espinozao CNM Work Phone: H/O: section History of section Maulik Zeeshan Espinozao CNM Work Phone: H/O: section History of section Maulik Zeeshan Espinozao CNM Work Phone: H/O: section History of section Maulik Zeeshan Espinozao CNM Work Phone: H/O: section History of section Maulik Zeeshan Espinozao CNM Work Phone: Plan of Treatment Date Care Activity Detail Author Start: 09-15-2024 End: 09-15-2024 ambulatory 09/15/2024 4:30 PM EST Visit [facility] [address] [place] [address] Maulik Del Toro CNM [address] [place], [place] [id number] [facility] Start: 09-03-2024 End: 09-03-2024 Patient encounter procedure 09/03/2024 10:30 AM EST Routine [facility] [address] [facility] [place] [address] Maulik Del Toro, CNM [address] [facility] [place] [address] [facility] Start: 08-27-2024 End: 08-27-2024 Patient encounter procedure 08/27/2024 10:30 AM EST Routine [facility] [address] [facility] [place] [address] Maulik Del Toro, CNM [address] [facility] [place] [address] [facility] Start: 08-19-2024 End: 08-19-2024 Patient encounter procedure 08/19/2024 10:15 AM EST Routine [facility] [address] [facility] [address] Maulik Del Toro, CNM [address] [facility] [place] [address] [facility] Start: 08-13-2024 End: 08-13-2024 Patient encounter procedure 08/13/2024 10:30 AM EST Routine [facility] [address] [facility] [address] Maulik Del Toro, CNM [address] [facility] [place] [address] [facility] Start: 08-06-2024 End: 08-06-2024 Patient encounter procedure 08/06/2024 11:30 AM EST Routine [facility] [address] [facility] [address] Maulik Del Toro, CNM [address] [facility] [place] [address] [facility] Start: 07-23-2024 End: 07-23-2024 Patient encounter procedure 07/23/2024 10:00 AM EST Routine [facility] [address] [place] [address] Maulik Del Toro, CNM [address] [facility], [place] [id number] [facility] Start: 06-24-2024 End: 06-24-2025 US for US OB follow up transabdominal approach Imaging Routine related condition in third trimester Expected: 06/24/2024, Expires: 06/24/2025 [facility] Work Phone: Comment on above: Expected: 06/24/2024 , Expires: 06/24/2025 Start: 06-24-2024 End: 06-24-2024 Patient encounter procedure [facility] Comment on above: Arrived Start: 05-21-2024 End: 05-21-2024 Patient encounter procedure [facility] Comment on above: Arrived Start: 04-23-2024 End: 04-23-2024 Professional / ancillary services management 04/23/2024 10:00 AM EDT Ancillary Procedure [facility] [address] [address] [facility] Start: 04-23-2024 End: 04-23-2024 Patient encounter procedure [facility] Comment on above: Arrived Start: 03-19-2024 End: 03-19-2025 US for US OB 14+ weeks anatomy scan Imaging Routine related condition in second trimester Expected: 03/19/2024, Expires: 03/19/2025 [facility] Work Phone: Comment on above: Expected: 03/19/2024 , Expires: 03/19/2025 Start: 03-16-2024 Influenza vaccination Influenza Vacc ine (#1) [facility] Start: 03-04-2024 Screening for malign ant neoplasm of cervix [facility] Start: 03-16-2022 Influenza vaccination Flu vacc ine (Season Ended) [facility] Start: 2020 Screening for malign ant neoplasm of cervix [facility] [employer] Start: 06-05-2020 Screening for malign ant neoplasm of cervix Pap smear [facility] [employer] Start: 2009 DTaP/Tdap/Td vaccine (1 - Tdap) DTaP/Tdap/Td vaccine (1 - Tdap) [facility] [employer] Start: 2008 Hepatitis C screening Hepatitis C sc reen [facility] [employer] Start: 2005 HIV screening HIV screen [facility] [employer] Start: 2002 Depression Screen Depression Screen [facility] [employer] Start: 1995 COVID-19 Vaccine (1) COVID-19 Vaccin e (1) [facility] [employer] Start: 1991 Varicella vaccine (1 of 2 - 2-dose childhood series) Varicella vaccine (1 of 2 - 2-dose childhood series) [facility] [employer] GBS swab GBS swab Lab Rou [place] 36 weeks gestation of Ordered: 08/19/2024 [facility] [employer] Work Phone: Comment on above: Ordered: 08/19/2024 Nonrebreather mask oxygen Nonrebreather mask oxygen Respiratory Care Routine As directed - RT (PRN) until discontinued starting 12/07/2021 [facility] [employer] Work Phone: Comment on above: As directed - RT (FL N) until discontinued starting 12/07/2021 Oxygen therapy [[facility] Data Set] Initiate Oxygen Therapy Protocol Respiratory Care Routine As Needed until discontinued starting 12/07/2021 [facility] Work Phone: Comment on above: As Needed until disc ontinued starting 12/07/2021 RHOGAM RHOGAM POSTPAR MARCELINO Blood Bank [employer] Label Print 12/08/2021 7:15 AM EDT [facility] Work Phone: Spirometry panel Incentive drea metry Respiratory Care Routine Every 2hr while awake until discontinued starting 12/08/2021 [facility]: Comment on above: Every 2hr while awak e until discontinued starting 12/08/2021 STREPTOCCOUS, GROUP B CULTURE STREPTOCCOUS, GROUP B CULTURE Lab Routine 08/19/2024 11:22 AM EST [facility] Work Phone: Immunizations Immunization Date Immunization Notes Care Provider Fidel pickard 09-03-2024 tetanus toxoid, redu marcello diphtheria toxoid, and acellular pertussis vaccine, adsorbed Maulik Floro [facility] Work Phone: [facility] 12-07-2021 diphtheria, tetanus toxoids and acellular pertussis vaccine, unspecified formulation Rodo Simmons CUTTING TABLE OPERATOR FIRST - [facility] Work Phone: [employer] [facility] Work Phone: 12-07-2021 measles, mumps and rubella virus vaccine Rodo Simmons [facility] Work Phone: [employer] Work Phone: Payers Date Payer Category Payer Private Health Insurance [employer] [id number] 2022 Unknown [employer] [id number] 2022-Present [address] [place] [address] [id number] 2022 Unknown [id number] 2016 Unknown [id number] 1990 Unknown [id number] 2.16.840.1.652666.3.579.2. 593 1990 Unknown [id number] 2.16.840.1.738379.3.579.2. 173 1990 Unknown [id number] 2.16.840.1.805464.3.579.2. 9 1990 Unknown [id number] 2.16.840.1.938217.3.579.2. 1258 1990 Unknown [id number] 2.16.840.1.294231.3.579.2. 9 1990 Unknown [id number] 2.16.840.1.520834.3.579.2. 1258 1990 Unknown [id number] 2.16.840.1.422713.3.579.2. 1258 1990 Unknown [id number] 2.16.840.1.798847.3.579.2. 1258 1990 Unknown [id number] 2.16.840.1.891913.3.579.2. 1258 1990 Unknown [id number] 2.16.840.1.561796.3.579.2. 1258 1990 Unknown [id number] 2.16.840.1.994716.3.579.2. 1258 1990 Unknown [id number] 2.16.840.1.925306.3.579.2. 1258 1990 Unknown [id number] 2.16.840.1.757265.3.579.2. 9 1990 Unknown [id number] 2.16.840.1.584183.3.579.2. 1258 1990 Unknown [id number] 2.16.840.1.725305.3.579.2. 9 1990 Unknown [id number] 2.16.840.1.952170.3.579.2. 1258 1990 Unknown [id number] 2.16.840.1.835456.3.579.2. 1259 1959 Unknown [id number] Social History Date Type Detail Facility Start: 03-28-2017 End: 06-20-2023 Tobacco smoking status PAIS Ex-smoker [facility] [employer] Phone: History of tobacco use Cigarette Smoker B ON [employer] Phone: Start: 03-28-2017 End: 01-29-2024 Cigarettes smoked current (pack per day) - Reported 1 [employer] Phone: Start: 03-28-2017 End: 06-20-2023 Tobacco use and exposure Smokeless tobacco non-user [employer] Phone: Start: 12-07-2021 Alcohol intake Ex-drinker (finding) [employer] Phone: Start: 1990 Sex Assigned At Not on file B ON [employer] Phone: Start: 11-27-2021 End: 12-07-2021 Exposure to SARS-CoV-2 (event) Not sure [employer] Phone: History of tobacco use Current smoker [facility] Start: 01-29-2024 Alcoholic beverage intake Lifetime non-drinker (finding) [facility] Start: 01-29-2024 Tobacco use panel [facility] Start: 05-21-2023 Alcohol Comment caffeine: 1-2 cups per day [facility] Start: 12-23-2023 [facility] Clinical Notes 12-10-2021 to 09-03-2024 HANNAH Monreal - 09/03/2024 11:00 AM Kyler Del Toro CNM - 08/19/2024 10:15 AM Kyler Del Toro CNM - 08/13/2024 10:30 AM Kyler Del Toro CNM - 08/06/2024 11:30 AM ESTInstructions Note Date & Type Note Facility 09-03-2024 History of Present illness Narrative Subjective No chief complaint on file. Alton Davis is a 34 y.o. at 38w3d with a working estimated date of delivery [...] Spinal N XANDER Her is complicated by: abdominal pain throughout NSTs and BPPs done 3rd trimester Objective Physical Exam weight: 170 lb Expected Total Weight Gain: 25 lb-35 lb [place] BMI: 21.13 BP: (!) 150/100 Patient s blood pressure repeated 130/78 patient states she was rushing to get here from the hospital. Denies headache, visual disturbances and no epigastric pain Urine protein-negative Urine glucose-negative Assessment/Plan Diagnoses and all orders for this visit: Encounter for supervision of other normal , third trimester - Tdap vaccine greater than or equal to 7 years old IM History of section Continue vitamin. Labs reviewed. GBS positive Expected mode of delivery repeat section Follow up in 32 weeks for a routine post op visit after section . documented in this encounter [facility] 08-19-2024 History of Present illness Narrative Subjective No chief complaint on file. Alton Davis is a 34 y.o. at 36w2d with a working estimated date of delivery of 09/14/2024, by Last Menstrual Period who presents for a routine visit. She denies vaginal bleeding, leakage of fluid, decreased movements, or contractions. Her is complicated by: Abdominal pain and recurrent BPP and NST at [facility] The following portions of the chart were [...] routine visit. documented in this encounter [facility] 08-13-2024 History of Present illness Narrative [...] Births 1 # Outcome Date GA Lbr Dael/2nd Weight Sex Type Anes PTL Lv 2 [...] routine visit. documented in this encounter [facility] 08-06-2024 History of Present illness Narrative [...] routine visit. documented in this encounter [facility] 07-23-2024 History of Present illness [...] routine visit. documented in this encounter [facility] 06-25-2024 History of Present illness [...] routine visit. documented in this encounter [facility] 06-24-2024 History of Present illness Narrative GBS report sent to [place] documented in this encounter [facility] 06-17-2024 Telephone encounter Note [facility] needs lab result that has her blood type on it and Demo sheet faxed to [phone] [facility] 06-17-2024 Miscellaneous Notes [facility] needs lab result that has her blood type on it and Demo sheet faxed to [phone] documented in this encounter [facility] 05-21-2024 History of Present illness [...] routine visit. documented in this encounter [facility] 04-23-2024 History of Present illness [...] routine visit. documented in this encounter [facility] 03-19-2024 History of Present illness [...] routine visit. documented in this encounter [facility] 12-10-2021 Hospital Discharge instructions Lorin Arias, NESS - 12/10/2021 Follow-up with your OB doctor as specified. [facility] OB Department phone: Chikis Del Toro, MSN, CUTTING TABLE OPERATOR FIRST, CNM [place] [id number] [address] [facility] [id number] DIET Eat a well balanced diet focusing on foods high in fiber and protein. Drink plenty of fluids especially water. To avoid constipation you may take a mild stool softener as recommended by your doctor or residence director. ACTIVITY Gradually increase your activity. Resume exercise regimen only after advice by your doctor or residence director. Avoid lifting anything heavier than a gallon of milk for SIX weeks. Avoid driving until your doctor or residence director has given their approval. Rise slowly from [...] medications as recommended by your doctor or residence director for pain If you develop a warm, [...] vitamins as directed by your doctor or residence director. Refer to the booklet in the folder/binder for more information. If you feel you need more assistance or have questions, please call Vibha Crump IBCLC, netsuite consultant, at or the OB department to [...] they become loose or soiled. If used, [place] should be removed by your care provider. [...] your calf. documented in this encounter [employer] [employer] Work Phone: 12-10-2021 History of Present illness [...] 12/07/21 2234 95 % 12/07/21 2230 18 12/07/212228 97 % 12/07/212223 99 % 12/07/21 221 100 % 12/07/212214 (!) 121/57 98.8 F [...] provide urine sample. documented in this encounter [facility] Phone: Evaluation note Diagnosis Uterine contractions- Primary Third trimester Term intolerance to labor, delivered, current hospitalization Abnormality in heart rate/rhythm, delivered, with or without mention of antepartum condition delivery delivered delivery, without mention of indication, delivered, with or without mention of antepartum condition documented in this encounter [facility] Phone: evaluation note* Diagnosis Encounter for supervision [...] Primary COVID-19 [facility] Diagnosis Screening for iron deficiency anemia Screening for diabetes mellitus related condition in third trimester [facility] [...] FoundDocuments on File Type Date Recorded Patient Surveillance Sensor Operator Expl anation ACP-Advance Directive ACP-Power of Cardiovascular Rn Latest Code Status on File Code Status Date Activated Date Inactivated Comments Full Code 12/07/2021 11:34 PM Full Code 12/07/2021 5:30 AM 12/07/2021 11:33 PM Additional Source Comments INFORMATION SOURCE (unrecogn ized section and content) DATE CREATED AUTHOR 01/08/2018 [facility] DATE CREATED AUTHOR AUTHOR'S ORGANIZ ATION 12/02/2021 [facility] dical Specialist DATE CREATED AUTHOR AUTHOR'S ORGANIZ ATION 12/08/2021 [facility] DATE CREATED AUTHOR AUTHOR'S ORGANIZ ATION 01/15/2022 [facility] DATE CREATED AUTHOR AUTHOR'S ORGANIZ ATION 09/05/2024 [facility] dical Specialists EPIC Reason for Visit (unrecogniz ed section and content) Reason Comments Contractions Specialty Diagnoses / Procedures Referred By Contac t Referred To Contact Diagnoses Uterine contractions Term intolerance to labor, delivered, current hospitalization Rodo Shaw, CUTTING TABLE OPERATOR FIRST - [facility] [address] [place] [address] [facility] [address] [place] [address] Referral ID Status Reason Start Date Expiration Date Visits Re quested Visits Authorized [id number] 1 1 Ordered Prescriptions (unrec ognized section [...] Arce, RN) 0808 (Given - Provider: Usha Murguia RN)2336 (Given - Provider: Daria Arce, RN) [...] RN) 2099 (Due - Provider: Kaushik Lindsey [facility]) 2099 (Due - Provider: Kuashik Lindsey [facility]) sodium chloride flush 0.9 % injection 5-40 [...] (Due) 0900 (Due)2100 (Due) 0900 (Due)2100 (Due) mmwrugn-skhdii-shfcr pertussis (BOOSTRIX) injection 0.5 mL 0.5 mL, [...] Arce, RN) 0418 (Given - Provider: Ena Gilmore RN)1429 (Given - Provider: Nataliia York RN)233 (Given - Provider: Daria Arce RN) carboprost [...] ibuprofen., 0417 (Given - Provider: Domitila Herzog, RN)1107 (Given - Provider: Sherry Matt, RN)1709 (Given - Provider: Sherry Matt RN)2314 [...] Starting on Sun12/07/21 at 233, Until Discontinued, Cramping, Flatulence, 1743 (Given - [...] BE BASED ON THE PRIMARY CLINICAL RECORDS. [facility]. provides no warranty or guarantee of the accuracy or completeness of information in this document.
[2024-09-06 10:13] VITALS: BP 109/61; PULSE 83; TEMP 36.7
== END 2024-09-06 10:36 | disposition home or self-care (01) ==
LOC: FBCO 00:15 → FBC 10:06
PROVIDERS: PCP Midwife; Visit Provider Midwife
DX: O26.893 Other specified pregnancy related conditions, third trimester (principal); Z3A.38 38 weeks gestation of pregnancy
CPT/HCPCS: 59025

== ENCOUNTER 2024-09-08 05:29 | Inpatient (IN) | payer OTHER, SELFPAY ==
[2024-09-08] VITALS (27 sets, daily range): BP systolic 78–122; BP diastolic 39–97; PULSE 64–98; TEMP 36.1–37.1; O2SAT 98–100
[2024-09-08] MEDS: LACTATED RINGER'S SOLUTION 1,000 ML 1000 ML IV ×2 (05:30→07:30)
[2024-09-08 06:14] LABS: Basophils Absolute Auto 0.1 10^3/uL (0.0-0.1); Basophils Percent Auto 0.4 % (0.2-2.0); Eosinophils Absolute Auto 0.2 10^3/uL (0.0-0.7); Eosinophils Percent Auto 1.6 % (0.9-7.0); Hematocrit 32.1 % (36.0-48.0); Hemoglobin 10.9 g/dL (12.0-16.0); Immature Granulocytes Abs Auto 0.08 10^3/uL (0.00-0.03); Immature Granulocytes Pct Auto 0.7 % (0.0-0.5); Lymphocytes Absolute Auto 2.5 10^3/uL (1.2-3.8); Mean Corpuscular Hemoglobin 29.7 pg (26.7-34.0); Mean Corpuscular Volume 87.5 fL (81.0-99.0); Monocytes Percent Auto 8.5 % (1.7-12.0); Neutrophils Absolute Auto 7.6 10^3/uL (1.4-6.5); Neutrophils Percent Auto 66.8 % (43.0-75.0); Platelet Count 246 10^3/uL (150-450); Red Blood Count 3.67 10^6/uL (4.20-5.40); Red Cell Distribution Width 13.9 % (11.0-15.0); White Blood Count 11.3 10^3/uL (4.0-11.0)
--- NOTE | 2024-09-08 06:24 | P.OBHP_ITS ---
OB - H&P: HPI History of Present Illness Chief complaint: C -SECTION : 2 Para: 1 Gestational age based on last menstrual period: 39.1 History of Present Dating criteria: LMP confirmed by 1st trimester US care: good care Ultrasounds: normal 1st trimester US and normal mid trimester US complications: labor complications comment: abdominal and flank pain throughout last trimester. Medical complications OB: none Labs Blood type: A (-) negative Rubella: nonimmune RPR/VDLR: nonreactive GBS status: positive HBsAG: negative Review of Systems ROS Status of ROS: 10 or more systems reviewed and unremarkable except as noted in history and below Meds Home Medications and Allergies Home Medications ?Medication ?Instructions ?Recorded ?Confirmed ?Type famotidine 20 mg tablet 20 mg PO DAILY 07/30/24 08/19/24 History Allergies Allergy/AdvReac Type Severity Reaction Status Date / Time No Known Drug Allergies Allergy Verified 07/27/24 18:39 Exam Constitutional Vital Signs, click to edit/add: Last Vital Signs Pulse 88 09/08/24 06:16 BP 122/80 09/08/24 06:16 Documenting provider has reviewed patient's vital signs: yes Common normals: no apparent distress General appearance: cooperative HENMT Common normals: normocephalic Eye Common normals: EOMs intact bilaterally Visual acuity: acuity normal Neck & C-Spine Common normals: full ROM and no lymphadenopathy General: normal visual inspection Lymph Lymphatic: no lymphadenopathy noted Chest Common normals: inspection of chest normal Respiratory Common normals: normal respiratory effort, no retractions, no use of accessory muscles, clear to auscultation bilaterally and percussion normal Effort & inspection: able to speak in complete sentences Auscultation: clear to auscultation bilaterally Cardio Common normals: regular rate and regular rhythm Rate: regular rate Rhythm: regular rhythm GI Common normals: Normal to inspection, nondistended, normoactive bowel sounds present Inspection: normal to inspection Auscultation: normoactive bowel sounds Palpation: soft Common normals: no CVA tenderness Back & Pelvis Common normals: no CVA tenderness Thoracic spine/upper back: normal to inspection Lumbar spine/lower back: normal to inspection Extremity Common normals: normal to inspection, full ROM, normal capillary refill, no joint enlargement, no clubbing, cyanosis or edema, no calf tenderness and no pedal edema Neuro Common normals: oriented x3 Sensorium/orientation: awake, alert, oriented to person, oriented to place and oriented to time Psych Common normals: mental status grossly normal, thought process normal, coope rative, affect normal, speech normal, activity/motor behavior normal, denies hallucinations, denies homicidal ideation and denies suicidal ideation Appearance: well kempt Results Labs Labs: Short CBC 09/08/24 Range/Units 05:55 WBC 11.3 H (4.0-11.0) 10^3/uL Hgb 10.9 L (12.0-16.0) g/dL Hct 32.1 L (36.0-48.0) % Plt Count 246 (150-450) 10^3/uL OB - A/P Assessment and Plan (1) Term : (2) S/P repeat low transverse : Urinary Catheter Management Urinary Catheter Management Urethral: Cath placed during this visit: no
[2024-09-08 06:26] LABS: Amphetamine Screen Urine NEGATIVE (NEGATIVE); Barbiturates Screen Urine NEGATIVE (NEGATIVE); Benzodiazepines Screen Urine NEGATIVE (NEGATIVE); Buprenorphine Screen Urine NEGATIVE (NEGATIVE); Cannabinoid Screen Urine NEGATIVE (NEGATIVE); Cocaine Screen Urine NEGATIVE (NEGATIVE); Methadone Screen Urine NEGATIVE (NEGATIVE); Methamphetamines Screen Urine NEGATIVE (NEGATIVE); Opiate Screen Urine NEGATIVE (NEGATIVE); Oxycodone Screen Urine NEGATIVE (NEGATIVE); Phencyclidine Screen Urine NEGATIVE (NEGATIVE); Tricyclic Antidepressant Urine NEGATIVE (NEGATIVE)
[2024-09-08] MEDS: CITRIC ACID/SODIUM CITRATE 30 ML SOLUTION ORACIT SHOHL'S SOLN PO (07:20)
[2024-09-08] MEDS: FAMOTIDINE/PF 20 MG/2 ML VIAL IV (07:20)
[2024-09-08] MEDS: METOCLOPRAMIDE HCL 10 MG/2 ML VIAL IVP (07:21)
[2024-09-08] MEDS: CEFAZOLIN SODIUM/DEXTROSE,ISO 2 GM/50 ML PIGGYBACK IV (07:29)
[2024-09-08] MEDS: LACTATED RINGER'S SOLUTION 1,000 ML 50 ML IV ×3 (08:10→08:30)
--- NOTE | 2024-09-08 08:43 | PM.ONB ---
Brief Operative Note Date of procedure: 09/08/24 Pre-op diagnosis general: iup at 39wks, previous c/s Post-op diagnosis: same as pre-op Procedure: NAME OF PROCEDURE: [ section ] PROCEDURE: Patient was taken back to the Operating Room where she was given a spinal anesthesia with Duramorph without difficulty. She was prepped and draped in the normal sterile fashion. A Pfannenstiel skin incision was then made 2 cm above the symphysis pubis and carried down to underlying rectus fascia using a Bovie. The fascia was incised in the midline and extended laterally using Cabral scissors. Two Rose clamps were placed on the superior aspect of the fascia and dissected off the underlying rectus muscles. The same was performed on the inferior aspect as well. The muscles were then in the midline. Peritoneum was identified and entered bluntly. The peritoneum was then extended superiorly and inferiorly with good visualization of the bladder. The bladder blade was inserted. A low transverse incision was made on the patient's uterus and extended laterally digitally. The was then delivered atraumatically after the bladder blade was removed in the cephalic position. The cord was clamped and cut. Cord blood was obtained. The was handed off to awaiting team. The patient's placenta was spontaneously delivered. The uterus was then exteriorized. The uterus was cleared of all clots and debris. The bladder blade was reinserted. The patient's uterine incision was closed using #0 Vicryl in a running lock fashion. Excellent hemostasis was assured. The uterus was then returned to the patient's abdomen. The patient's abdomen was copiously irrigated using warm saline. Peritoneal gutters were cleared of all clots and debris. Again excellent hemostasis was assured. The patient's peritoneum was closed using 3-0 Vicryl in a running fashion. The patient's fascia was closed using #0 Vicryl in a running fashion. The patient's skin was closed using 4-0 Vicryl subcuticularly. The patient tolerated the procedure well. Sponge, lap, and needle counts were correct x2. The patient was taken to the Recovery Room in stable condition. Anesthesia: spinal Surgeon: Narayan Martinez Industrial Rehabilitation Consultant: MAULIK KUMAR Estimated blood loss (mL): 575 Pathology: none sent Condition: stable Disposition: PACU Urinary Catheter Management Urinary Catheter Management Urethral: Cath placed during this visit: no
--- NOTE | 2024-09-08 08:44 | P.OBPRC_ITS ---
Procedure Pre-op/Post-op diagnoses: Pre-Op/Post-Op Diagnoses Operation Date: 09/08/24 07:30 <No data on this case meets the specified criteria> Procedure: Procedures Operation Date: 09/08/24 07:30 Actual Procedure Side Surgeon p Repeat Not Applicable Narayan Martinez DO Answering Service Telephone Operator: MAULIK KUMAR Estimated blood loss (mL): 575 Disposition: PACU Anesthesia type: Spinal
--- NOTE | 2024-09-08 09:05 | P.EN_ITS ---
Event Note Event Note: Manager Heavy Duty Note: I first assisted Dr Martinez with this repeat section as directed. I independently closed the SQ layer with a 4-0 vicryl suture without difficulty. I then independently closed the incision with a 3-0 vicryl without difficulty. Hemostasis noted at the completion of the closure. Patient tolerated procedure well.
[2024-09-08] MEDS: LACTATED RINGER'S SOLUTION 1,000 ML 125 ML IV (10:45)
[2024-09-08] MEDS: CEFAZOLIN SODIUM/DEXTROSE,ISO 1 GM/50 ML PREMIX IV (13:06)
[2024-09-08] MEDS: KETOROLAC TROMETHAMINE 30 MG/ML VIAL IVP ×2 (14:43→21:05)
[2024-09-08] MEDS: ACETAMINOPHEN 500 MG TABLET 1000 MG PO (16:32)
[2024-09-08] MEDS: ENOXAPARIN SODIUM 40 MG/0.4 ML SYRINGE SUBQ (22:23)
[2024-09-09] MEDS: ACETAMINOPHEN 500 MG TABLET 1000 MG PO ×3 (00:08→16:01)
[2024-09-09 00:09] VITALS: BP 107/62; PULSE 80
[2024-09-09] MEDS: KETOROLAC TROMETHAMINE 30 MG/ML VIAL IVP (03:54)
[2024-09-09 03:56] VITALS: BP 102/57; PULSE 78
[2024-09-09 06:31] LABS: Basophils Percent Auto 0.2 % (0.2-2.0); Eosinophils Absolute Auto 0.2 10^3/uL (0.0-0.7); Eosinophils Percent Auto 0.9 % (0.9-7.0); Hemoglobin 7.8 g/dL (12.0-16.0); Immature Granulocytes Abs Auto 0.15 10^3/uL (0.00-0.03); Immature Granulocytes Pct Auto 0.8 % (0.0-0.5); Lymphocytes Absolute Auto 2.6 10^3/uL (1.2-3.8); Lymphocytes Percent Auto 14.4 % (20.5-60.0); Mean Corpuscular HGB Conc 32.6 g/dL (29.9-35.2); Mean Corpuscular Volume 88.8 fL (81.0-99.0); Mean Platelet Volume 10.2 fL (9.5-13.5); Monocytes Absolute Auto 1.4 10^3/uL (0.3-0.8); Monocytes Percent Auto 7.6 % (1.7-12.0); Neutrophils Absolute Auto 13.8 10^3/uL (1.4-6.5); Neutrophils Percent Auto 76.1 % (43.0-75.0); Platelet Count 184 10^3/uL (150-450); Red Blood Count 2.69 10^6/uL (4.20-5.40); Red Cell Distribution Width 14.2 % (11.0-15.0); White Blood Count 18.1 10^3/uL (4.0-11.0)
[2024-09-09 06:33] LABS: Hematocrit 23.9 % (36.0-48.0)
--- NOTE | 2024-09-09 07:24 | W.PC.ACHO ---
Registration Status: ADM IN Primary Language: Preferred Language: Greek report given to Nahum ARZOLA at 0710. Care relinquished. Active Medications Generic Name Dose Route Start Last Admin Trade Name Freq PRN Reason Stop Dose Admin Acetaminophen 1,000 mg 09/08/24 16:00 09/09/24 00:08 Acetaminophen 500 Mg Tablet PO 09/10/24 09:08 1,000 mg Q8H ALEJANDRO Administration Al Hydroxide/Mg Hydroxide 2,400 mg 09/08/24 09:07 Magnesium Hydroxide 2,400 Mg/10 Ml Oral.Susp PO Q6H PRN Dyspepsia Diphenhydramine HCl 25 mg 09/08/24 09:07 Diphenhydramine Hcl 50 Mg/Ml Vial IV 09/09/24 09:07 Q6H PRN Itching Diphtheria/Pertussis/Tetanus Vacc 0.5 ml 09/10/24 09:00 Adacel Diph,Pertuss(Acell),Tet Vac/Pf 0.5 Ml Adult Syringe IM 09/10/24 09:01 .ONCE ONE Docusate Sodium 100 mg 09/09/24 09:00 Docusate Sodium 100 Mg Capsule PO BID ALEJANDRO Enoxaparin Sodium 40 mg 09/08/24 20:00 09/08/24 22:23 Enoxaparin Sodium 40 Mg/0.4 Ml Syringe SUBQ 40 mg Q24H ALEJANDRO Administration Oxytocin/Sodium Chloride 20 units in 1,000 mls @ 125 mls/hr 09/08/24 05:47 Pitocin 20 Unit/1,000 Ml-Ns IV Q8H PRN POST DELIVERY Promethazine HCl 25 mg/ Sodium 51 mls @ 204 mls/hr 09/08/24 09:07 Chloride IV Q6H PRN Nausea And Vomiting Lactated Ringer's 1,000 mls @ 125 mls/hr 09/08/24 09:07 09/08/24 14:49 Lactated Ringers IV Infused .Q8H PRN Infusion IF NOT TOLERATING PO FLUIDS Ibuprofen 800 mg 09/09/24 11:00 Ibuprofen 400 Mg Tablet PO Q6H ALEJANDRO Ketorolac Tromethamine 30 mg 09/08/24 09:07 Ketorolac Tromethamine 30 Mg/Ml Vial IVP 09/10/24 09:08 Q6H PRN Pain Nalbuphine HCl 10 mg 09/08/24 09:07 Nalbuphine Hcl 10 Mg/Ml Ampule IV 09/09/24 09:07 Q3H PRN Itching Ondansetron HCl 4 mg 09/08/24 09:07 Ondansetron Pf 4 Mg/2 Ml Vial IV Q6H PRN Nausea And Vomiting Ondansetron HCl 4 mg 09/08/24 09:07 Ondansetron 4 Mg Rapdis Tablet PO Q6H PRN Nausea And Vomiting Oxycodone HCl 5 mg 09/08/24 09:07 Oxycodone Hcl 5 Mg Tablet PO Q4H PRN Breakthrough Pain Oxycodone/Acetaminophen 1 tab 09/08/24 09:07 Oxycodone Hcl/Acetaminophen 5mg/325mg PO Q4H PRN Pain Scale 4-6 Oxycodone/Acetaminophen 2 tab 09/08/24 09:07 Oxycodone Hcl/Acetaminophen 5mg/325mg PO Q4H PRN Pain Scale 7-10 Senna 17.2 mg 09/08/24 20:00 Sennosides 8.6 Mg Tablet PO QHS PRN Constipation Simethicone 80 mg 09/08/24 09:07 Simethicone 80 Mg Tab.Chew PO QID PRN Abdominal Distention Diet Category Date Time Status Regular Consistency Diet Diet 09/08/24 09:07 Active Respiratory Pulse Oximetry 99 Pulse Oximetry 99 Pulse Oximetry 98 Pulse Oximetry 99 Pulse Oximetry 99 Pulse Oximetry 100 Pulse Oximetry 100 Pulse Oximetry 98 Pulse Oximetry 99 Pulse Oximetry 98 Pulse Oximetry 99 Pulse Oximetry 98 Pulse Oximetry 98 Pulse Oximetry 99 Pulse Oximetry 98 Pulse Oximetry 98 Pulse Oximetry 99 Pulse Oximetry 98 Pulse Oximetry 98 Oxygen Delivery Method Room Air Oxygen Delivery Method Room Air Oxygen Delivery Method Room Air Oxygen Delivery Method Room Air Oxygen Delivery Method Room Air Oxygen Delivery Method Room Air Oxygen Delivery Method Room Air Cardiology Heart Sounds Strong,Regular Heart Sounds Strong,Regular Renal Bladder Pattern Continent Bladder Pattern Continent Catheter Date Urinary Catheter Removed 09/08/24 [Urethral] Time Urinary Catheter 20:35 Discontinued [Urethral]
[2024-09-09] MEDS: DOCUSATE SODIUM 100 MG CAPSULE PO ×2 (08:17→20:53)
--- NOTE | 2024-09-09 08:42 | P.OBPN_ITS ---
OB - PN: Subj Subjective Patient comments: no complaints [place] status: doing well and well Exam Constitutional Vital Signs, click to edit/add: Last Vital Signs Temp 98.6 F 09/08/24 20:35 Pulse 78 09/09/24 03:56 Resp 16 09/09/24 03:45 BP 102/57 09/09/24 03:56 Pulse Ox 99 09/08/24 11:35 O2 Del Method Room Air 09/09/24 03:45 Documenting provider has reviewed patient's vital signs: yes Common normals: no apparent distress and oriented x3 General appearance: cooperative Orientation/consciousness: Yes awake, Yes oriented to person, Yes oriented to place and Yes oriented to time HENMT Common normals: normocephalic Eye Common normals: EOMs intact bilaterally Neck & C-Spine Common normals: full ROM General: normal visual inspection Lymph Lymphatic: no lymphadenopathy noted Respiratory Common normals: normal respiratory effort Effort & inspection: able to speak in complete sentences Auscultation: clear to auscultation bilaterally Cardio Common normals: regular rate and regular rhythm Rate: regular rate Rhythm: regular rhythm GI Common normals: Normal to inspection, nondistended, normoactive bowel sounds present and soft to palpation Palpation: soft Common normals: no CVA tenderness Back & Pelvis Common normals: no CVA tenderness Extremity Common normals: normal to inspection Neuro Common normals: oriented x3 Sensorium/orientation: awake, alert, oriented to person, oriented to place and oriented to time Psych Common normals: mental status grossly normal, thought process normal, cooperative, affect normal, speech normal, activity/motor behavior normal, denies hallucinations, denies homicidal ideation and denies suicidal ideation Appearance: grossly normal and well kempt Attitude: calm Speech: normal speech Thought process: normal thought process Thought content: normal thought content Attention/concentration: attention grossly intact Memory/cognition: memory grossly intact Results Labs Labs: Short CBC 09/09/24 Range/Units 06:21 WBC 18.1 H (4.0-11.0) 10^3/uL Hgb 7.8 L (12.0-16.0) g/dL Hct 23.9 L* (36.0-48.0) % Plt Count 184 (150-450) 10^3/uL Urinary Catheter Management Urinary Catheter Management Urethral: Cath placed during this visit: yes, but has since been removed by the nurse Urethral indwelling: No Removal date: 09/08/24 Removal time: 20:35 OB - PN: A/P Assessment and Plan (1) Term : (2) S/P repeat low transverse : Plan - day: 1 Time Spent with Patient Time: Total time spent is greater than 50% in coordination of care (as documented) at patient's floor/unit and/or counseling patient: Total time spent with greater than 50% in coordination of care (as documented) at patient's floor/unit and/or counseling patient: less than 15 minutes
[2024-09-09 08:51] VITALS: BP 97/65; PULSE 82
[2024-09-09 08:55] VITALS: TEMP 36.7
[2024-09-09] MEDS: FERROUS SULFATE 325 MG TABLET PO ×2 (09:00→20:53)
[2024-09-09] MEDS: IBUPROFEN 400 MG TABLET 800 MG PO ×3 (11:54→23:16)
[2024-09-09 15:58] VITALS: BP 113/65; PULSE 80
[2024-09-10 00:25] VITALS: BP 101/65; PULSE 96; TEMP 36.7; O2SAT 96
[2024-09-10] MEDS: ACETAMINOPHEN 500 MG TABLET 1000 MG PO ×2 (00:26→08:35)
[2024-09-10] MEDS: IBUPROFEN 400 MG TABLET 800 MG PO (05:09)
[2024-09-10 08:31] VITALS: BP 99/59; PULSE 84
[2024-09-10] MEDS: FERROUS SULFATE 325 MG TABLET PO (08:36)
[2024-09-10] MEDS: DOCUSATE SODIUM 100 MG CAPSULE PO (08:36)
[2024-09-10 09:30] VITALS: TEMP 36.6
--- NOTE | 2024-09-10 15:24 | PM.OBPN ---
OB - PN: Subj Subjective Patient comments: no complaints and pain well controlled [place] status: doing well Exam Constitutional Vital Signs, click to edit/add: Last Vital Signs Temp 97.9 F 09/10/24 09:30 Pulse 84 09/10/24 08:31 Resp 16 09/10/24 09:30 BP 99/59 09/10/24 08:31 Pulse Ox 96 09/10/24 00:25 O2 Del Method Room Air 09/10/24 10:56 Documenting provider has reviewed patient's vital signs: yes Common normals: no apparent distress Respiratory Common normals: normal respiratory effort and clear to auscultation bilaterally Cardio Common normals: regular rate and regular rhythm GI Common normals: Normal to inspection, nondistended, normoactive bowel sounds present Extremity Common normals: no clubbing, cyanosis or edema and no calf tenderness Urinary Catheter Management Urinary Catheter Management Urethral: Cath placed during this visit: yes, but has since been removed by the nurse Urethral indwelling: No Removal date: 09/08/24 Removal time: 20:35 OB - PN: A/P Assessment and Plan (1) Term : (2) S/P repeat low transverse : Plan - day: 2 Plan: routine postop care, discharge home and other (fu 1wk) Time Spent with Patient Time: Total time spent is greater than 50% in coordination of care (as documented) at patient's floor/unit and/or counseling patient: Total time spent with greater than 50% in coordination of care (as documented) at patient's floor/unit and/or counseling patient: less than 15 minutes
== END 2024-09-10 12:30 | disposition home or self-care (01) | DRG 788 ==
PROVIDERS: Obstetrics & Gynecology; Admitting Provider Midwife; PCP Midwife; Visit Provider Midwife
PROC: 10D00Z1 Extraction of Products of Conception, Low, Open Approach (ICD-10-PCS; CPT 59514; principal; 2024-09-08 07:30)
DX: O99.824 Streptococcus B carrier state complicating childbirth (principal); O34.211 Maternal care for low transverse scar from previous cesarean delivery; Z3A.39 39 weeks gestation of pregnancy; Z37.0 Single live birth; O26.893 Other specified pregnancy related conditions, third trimester; Z67.11 Type A blood, Rh negative; Z87.891 Personal history of nicotine dependence
CPT/HCPCS: 36415; 64488; 80307; 85025; 86850; 86900; 86901; 94667; 94668; J0131; J0665; J0690; J1100; J1650; J1885; J2274; J2371; J2405; J2590; J2765; J3490